=== PATIENT | female | born 1970 | race Caucasian/White ===

== ENCOUNTER 2016-04-14 18:56 | Inpatient (IN) | payer OTHER ==
[~2016-04-14] VITALS: Ht 160 cm; Wt 78.3 kg
[~2016-04-14 18:56] MED LIST: ATOR40TA PO; COLC1TAB13 PO; COZA1TAB PO; FERR325T3 PO; GABA-279 PO; GLUC4CHW PO; HYDR-4266 PO; IBUP-1114 PO; INSUDET SC; ISOS30TA4 PO; KLOR1TAB69 PO; LANTINJ4 SC; LASI40TA PO; LEVO100T5 PO; LISI-542 PO; MAGN400C2 PO; MAGN400T2 PO; METO-207 PO; OXYC1TAB23 PO; PANT40TA2 PO; PERCOCET PO; POTA10CA PO; SYMB16INH INH; SYMB80INH INH; SYNT50TA PO; TRAM50TA2 PO; TYLE325T5 PO; TYLE650T25 PO; VALS1TAB48 PO; VERA120C PO; VERA180C PO; VITA50003 PO; no home meds
[2016-04-14] MEDS ORDERED: RENV2TAB PO (20:12)
[2016-04-14] MEDS ORDERED: GABA600T PO (20:12)
[2016-04-14] MEDS ORDERED: ASPI1TAB PO (20:12)
[2016-04-14] MEDS ORDERED: HYDR-4266 PO (20:12)
[2016-04-14] MEDS ORDERED: LISI-542 PO (20:12)
[2016-04-14] MEDS ORDERED: METO-346 PO (20:12)
--- NOTE | 2016-04-14 22:46 | HPEPDOC ---
General Date of Admission 04/14/2016 Chief Complaint The patient is a 46-year-old female admitted with a reason for visit of EDEMA. Source: Patient, Old records Exam Limitations: No limitations History of Present Illness This is a 45-year-old female with uncontrolled diabetes with complications, end- stage renal disease on hemodialysis, hypertension, anemia, history of congestive heart failure, cancer questionable, peripheral neuropathy, peripheral vascular disease, diabetic retinopathy, is here because She missed dialysis for about 2 weeks. Patient went to [place] for about a month, was receiving hemodialysis regularly THERE. However SHE returns to [facility] about 2 weeks ago. She was getting dialysis here however since she has lost to follow-up, they cannot take her back. ER has called the check totaler and the dialysis center and being admitted since dialysis has to be set up as outpatient.. Denies any shortness of breath, chest pain or any symptoms. Home Medications Scheduled Aspirin (Aspirin 81) 81 Mg Tab 81 MG PO DAILY (Reported) Atorvastatin Calcium (Atorvastatin Calcium) 40 Mg Tab 40 MG PO DAILY (Reported ) Budesonide/Formoterol (Symbicort 160-4.5 Mcg/Act) 60 Puff/Inhaler Aers 1 PUFF INH BID (Reported) Ergocalciferol (Vitamin D) 50,000 Unit Cap 50,000 UNIT PO QWEEK (Reported) SUNDAYS Ferrous Sulfate (Ferrous Sulfate) 325 Mg Tab 325 MG PO DAILY (Reported) Gabapentin (Gabapentin) 600 Mg Tab 600 MG PO TID (Reported) Hydralazine HCl (Hydralazine HCl) 25 Mg Tab 25 MG PO BID (Reported) Isosorbide Mononitrate (Isosorbide Mononitrate ER) 30 Mg Tab 30 MG PO DAILY ( Reported) Levothyroxine Sodium (Synthroid) 100 Mcg Tab 100 MCG PO DAILY (Reported) Lisinopril (Lisinopril) 5 Mg Tab 5 MG PO DAILY (Reported) Magnesium Oxide (Magnesium Oxide) 400 Mg Tab 400 MG PO BID (Reported) Metoprolol Tartrate (Metoprolol Tartrate) 12.5 Mg Halftab 12.5 MG PO BID ( Reported) Sevelamer Carbonate (Renvela) 800 Mg Tab 800 MG PO TID (Reported) Allergies Coded Allergies: Penicillins (Unverified Allergy, Unknown, Childhood Allergy, 05/26/15) Past Medical History Medical History End-stage renal disease on hemodialysis Congestive heart failure hypertension Diabetes with complications Diabetic retinopathy Peripheral vascular disease Family History Significant Family History: No pertinent family hx Social History * Smoker: non-smoker, former Smoker Alcohol: denies Drugs: denies Recent Travel/Sick Contacts: Denies: Recent sick contacts, Recent travel Psychosocial History: No pertinent psych hx Review of Symptoms Constitutional: Denies: Chills, Fatigue, Fever, Lethargy, Malaise, Night Sweats , Other, Weakness, Weight Loss Eyes: Denies: Conjunctivae inflammation, Eyelid inflammation, Other, Pain, Redness, Vision change ENT: Denies: Dysphagia, Ear Pain, Epistaxis, Head Aches, Other Symptoms, Post Nasal Drip, Sinus Congestion, Sore Throat Skin: Denies: Breakdown, Bruising, Dry, Itching, Jaundice, Lesions, Nail Changes, Other, Rash Pulmonary: Denies: Cough, Dyspnea, Other Symptoms, Pleuritic Chest Pain Cardiovascular: Denies: Chest Pain, Edema, Lt Headedness, Orthopnea, Other Symptoms, Palpitations, Paroxysmal Noc. Dyspnea Gastrointestinal: Denies: Abdominal Pain, Constipation, Diarrhea, Hematochezia , Melena, Nausea, Other Symptoms, Vomiting Genitourinary: Denies: Dysuria, Frequency, Hematuria, Incontinence, Other Symptoms, Retention Hematologic: Denies: Bleeding Excessively, Bruising, Enlarged Lymph Nodes, Other Hematologic, Petecchia, Purpura Endocrine: Denies: Cold Intolerance, Heat Intolerance, Other Endocrine Sx, Polydipsia, Polyphagia, Polyuria Musculoskeletal: Denies: Arm Pain, Back Pain, Foot Pain, Hand Pain, Joint Pain , Leg Pain, Muscle Pain, Neck Pain, Other Symptoms, Shoulder Pain, Spasms Neurological: Denies: Change in speech, Confusion, Incoordination, Numbness, Other Symptoms, Seizures, Weakness Psych: Denies: Anger, Anxiety, Depression, Memory Issues, Mood Normal, Other Psych, Thoughts of Harming Other, Thoughts of Self Harm Physical Examination Eye Exam: Negative: Conjunctiva & lids normal, EOMI, Other Eye Symptoms, PERRLA , Ptosis, Sclera icteric ENT Exam: Negative: Atraumatic, Ext Auditory Canal Nml, Mucous membr. moist/ pink, Nares Patent, Other ENT, Pharyngeal Edema, Pharynx Normal, Pinna Normal, Tongue Midline, Tympanic Membranes Normal Neck Exam: Negative: +2 carotid pulse wo bruit, JVD, Lymphadenopathy, Other, Supple, thyromegaly Chest Exam: Positive: Clear to auscultation, Normal air movement, Negative: Diminished, Other, Rales, Rhonchi, Wheezing Heart Exam: Positive: Murmurs, Normal S1, Normal S2, Rate Normal, Negative: Bradycardic, Gallops, Irregular Rhythm, Other, Regular Rhythm, Rubs , Tachycardic Telemetry: Negative: AV Block, Asystole, Atrial fibrillation, Bradycardia, No significant arrhythmia, Other Telemetry:, PACs, PVCs, Pause, SV Tach, Sinus, Tachycardia Abdomen Exam: Positive: Normal bowel sounds, Negative: BS Hyperactive, BS Hypoactive, Hepatospenomegaly, Hernia, Mass, Other, Soft, Tenderness Extremity Exam: Negative: Clubbing, Cyanosis, Edema, Normal pulses, Other, Swelling, Tenderness Vital Signs BP: 176/96 P: 88 TEMP: 96.4 Plan / VTE VTE Prophylaxis Ordered?: Yes Plan Plan 45-year-old female with uncontrolled diabetes with complications, end-stage renal disease on hemodialysis, hypertension, anemia, history of congestive heart failure, cancer questionable, peripheral neuropathy, peripheral vascular disease, diabetic retinopathy, is here because She missed dialysis for about 2 weeks. ESRD on HD: - call psychiatric social worker shane to set up HD as outpatient. - no need for acute HD at this time. - c/w renvela. Anemia: - could be secondary to ACD vs. ESRD. - ferritin is elevated therefore we will stop iron supplementation. HTN: - BP is uncontrolled possible secondary to missed HD. for now will increase hydralazine to 25mg TID from BID - c/w, Imdur 30mg daily, metoprolol 12.5mg BID, lisinopril 5mg daily, DVT ppx: heparin sub q. DIANA ALBARADO MD Apr 14, 2016 22:46
[2016-04-14] MEDS ORDERED: GLUCAGON FOR INJ 1 MG VIAL (J1610) SC PRN (23:00)
[2016-04-14] MEDS ORDERED: GLUCOSE 4 GM CHEW TABLET PO PRN (23:00)
[2016-04-14] MEDS ORDERED: DEXTROSE 50% 50 ML SYRINGE IV PRN (23:00)
--- NOTE | 2016-04-15 00:36 | EDDOCDS ---
Physician Documentation [facility] Name: Subha Trivedi Age: 46 yrs Sex: Female : 1970 Arrival Date: 04/14/2016 Time: 18:56 Bed 12 Private MD: Gibran Castillo Disposition: 04/14/16 19:21 Hospitalization ordered by Gibran Castillo for Inpatient Admission. Preliminary diagnosis is End stage renal disease. - Bed requested for PCU. - Status is Inpatient Admission. af2 - Condition is Stable. - Problem is an ongoing problem. - Symptoms are unchanged. Historical: - Allergies: PENICILLINS; - Home Meds: 1. aspirin 81 mg Oral TbEC 1 tab once daily 2. atorvastatin 40 mg oral tab 1 tab once daily 3. ferrous sulfate 325 mg (65 mg iron) Oral cpER daily 4. gabapentin 600 mg Oral tab 1 tab 3 times per day 5. hydralazine 25 mg Oral tab 1 tab 2 times per day 6. isosorbide mononitrate 30 mg Oral Tb24 1 tab once daily 7. levothyroxine 100 mcg Oral cap once daily 8. lisinopril 5 mg Oral tab 1 tab once daily 9. MagOx 400 mg oral tab twice a day 10. metoprolol tartrate 12.5 mg Oral tab 1 tab 2 times per day 11. Renvela 800 mg oral tab 1 tab 3 times per day 12. Symbicort INH 2 puff daily 13. Vitamin D Oral 51481 unit weekly - PMHx: Anemia; CHF; Chronic Renal Disease; Diabetes; HTN; Left ovarian tumor, cancer, inoperable; peripheral neuropathy; PVD; Renal Failure with Dialysis; - PSHx: ; Tubal ligation; Dialysis Catherter Insertion; Angioplasty; Hysterectomy; - Social history: Smoking status: Patient uses tobacco products, light tobacco smoker. No barriers to communication noted, The patient speaks fluent Ukrainian, Speaks appropriately for age. - Family history: Not pertinent. - : The pt / caregiver states he / she is not on anticoagulants. Home medication list is obtained from the patient. - Exposure Risk Screening:: None identified. 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 3 in. (160.02 cm) (R); Pain 0/10; 23:01 BP 181 / 91; Pulse 84; Resp 16; Temp 98.7(T); Pulse Ox 98% on R/A; Pain 0/10; jf3 04/15 00:12 BP 172 / 81; Pulse 82; Resp 18 S; Temp 98.7(O); Pulse Ox 95% on R/A; af2 04/14 19:00 Body Mass Index 26.57 (68.04 kg, 160.02 cm) mt4 MDM: 04/14 19:51 Financial registration complete. gjb 19:52 [facility] Payment Agreement was scanned into [employer] and attached to record. gjb 22:36 Admission / Observation Status ordered. EDMS 22:36 2 GRAM SODIUM DIET ordered. EDMS 22:36 LOW FAT LOW CHOLESTEROL DIET ordered. EDMS 22:37 BASIC METABOLIC PROFILE Ordered. EDMS 23:10 Admission / Observation Status ordered. EDMS Signatures: Dispatcher [employer] EDMS Leyda Israel RN RN Hasmukh Stern, Nilsa SoloRN RN Caroline AvinaRN RN shakir2 Telma Jacobs The chart was reviewed and I authenticate all verbal orders and agree with the evaluation and treatment provided.Attachments: 19:52 [facility] Payment Agreement gj MTDD
--- NOTE | 2016-04-15 00:36 | EDDOCDS ---
Nurse's Notes [facility] Name: Subha Trivedi Age: 46 yrs Sex: Female : 1970 Arrival Date: 04/14/2016 Time: 18:56 Bed 12 Private MD: Gibran Castillo Diagnosis: End stage renal disease Presentation: 04/14 19:06 Presenting complaint: Patient states: Was called by dr Acevedo's office and told to jo3 return to the ED for admission. Adult Sepsis Screening: The patient does not have new or worsening altered mentation. Patient's respiratory rate is less than 22. Systolic blood pressure is greater than 100. Patient has a qSOFA score of 0- Negative Sepsis Screen. Suicide/Homicide risk assessment- the patient denies having any suicidal and/or homicidal ideations and does not present with any other emotional, behavioral or mental health complaints. Status: Patient is not a engine repairer service or dependent. Transition of care: patient was not received from another setting of care. 19:06 Acuity: ESAU Level 3 jo3 19:06 Method Of Arrival: Walkin/Carried/Asstd jo3 Triage Assessment: 19:09 General: Appears in no apparent distress, Behavior is appropriate for age, cooperative. jo3 Pain: Denies pain. HIV screening NA for this visit Offered previously. Neurological: Level of Consciousness is awake, alert, Oriented to person, place, time. Respiratory: Airway is patent Respiratory effort is even, unlabored. Derm: Skin is pink, warm & dry. 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 aspirin 81 mg Oral TbEC 1 tab once daily 2. atorvastatin 40 mg oral tab 1 tab once daily 3. ferrous sulfate 325 mg (65 mg iron) Oral cpER daily 4. gabapentin 600 mg Oral tab 1 tab 3 times per day 5. hydralazine 25 mg Oral tab 1 tab 2 times per day 6. isosorbide mononitrate 30 mg Oral Tb24 1 tab once daily 7. levothyroxine 100 mcg Oral cap once daily 8. lisinopril 5 mg Oral tab 1 tab once daily 9. MagOx 400 mg oral tab twice a day 10. metoprolol tartrate 12.5 mg Oral tab 1 tab 2 times per day 11. Renvela 800 mg oral tab 1 tab 3 times per day 12. Symbicort INH 2 puff daily 13. Vitamin D Oral 14261 unit weekly - PMHx: Anemia; CHF; Chronic Renal Disease; Diabetes; HTN; Left ovarian tumor, cancer, inoperable; peripheral neuropathy; PVD; Renal Failure with Dialysis; - PSHx: ; Tubal ligation; Dialysis Catherter Insertion; Angioplasty; Hysterectomy; - Social history: Smoking status: Patient uses tobacco products, light tobacco smoker. No barriers to communication noted, The patient speaks fluent Maori, Speaks appropriately for age. - Family history: Not pertinent. - : The pt / caregiver states he / she is not on anticoagulants. Home medication list is obtained from the patient. - Exposure Risk Screening:: None identified. Screenin:20 Screening information is obtained from the patient. Fall risk: No risks identified. af2 Assistance ADL's: requires no assistance with activities of daily living. Abuse/DV Screen: The patient / caregiver reports he/she is: not in a situation that causes fear, pain or injury. Nutritional screening: No deficits noted. Advance Directives: Currently, there is no health care proxy. home support is adequate. Assessment: 19:21 General: Appears in no apparent distress, Behavior is cooperative, pt states that she af2 was seen in ED earlier today, released home. pt reports she received a call from Dr. Acevedo's office stating that she needs to return to hospital for admission as they will not do dialysis for her on Sunday.. Neurological: Level of Consciousness is awake, alert, obeys commands, Oriented to person, place, time. Cardiovascular: Heart tones S1 S2 present. GI: Reports diarrhea, nausea. Derm: Skin is normal. 23:01 General: Appears in no apparent distress, comfortable, Behavior is cooperative. Pain: jf3 Denies pain. Neurological: Level of Consciousness is awake, alert, Oriented to person, place, time. Cardiovascular: Capillary refill < 3 seconds. Cardiovascular: Chest pain is denied. Respiratory: Airway is patent Respiratory effort is even, unlabored, Respiratory pattern is regular, symmetrical, Denies shortness of breath at rest. Derm: Skin is normal. 23:17 General: piv initiated at this time, pt updated regarding plan of care. . af2 04/15 00:06 General: Appears in no apparent distress, comfortable, Behavior is appropriate for age, af2 cooperative, pt offers no complaints at this time. rr even and unlabored. skin w/d/i. . Respiratory: Airway is patent Respiratory effort is even, unlabored. GI: Reports diarrhea. Derm: Skin is normal. Vital Signs: 04/14 19:00 BP 183 / 77 RA Sitting (auto/reg); Pulse 89 RA; Resp 18 S; Temp 97.7(T); Pulse Ox 100% mt4 on R/A; Weight 68.04 kg (R); Height 5 ft. 3 in. (160.02 cm) (R); Pain 0/10; 23:01 BP 181 / 91; Pulse 84; Resp 16; Temp 98.7(T); Pulse Ox 98% on R/A; Pain 0/10; jf3 04/15 00:12 BP 172 / 81; Pulse 82; Resp 18 S; Temp 98.7(O); Pulse Ox 95% on R/A; af2 04/14 19:00 Body Mass Index 26.57 (68.04 kg, 160.02 cm) mt4 Vitals: 04/14 19:00 Log In Time: April 14, 2016 at 18:56. mt4 ED Course: 19:00 Patient visited by Isabel Stephens. mt4 19:00 Gibran Castillo is Private Physician. mt4 19:00 Patient moved to Waiting mt4 19:01 Patient moved to Pre RCE mt4 19:08 Triage Initiated jo3 19:10 Patient visited by Nilsa Gramajo RN. jo3 19:10 Caroline High,RN is Primary Nurse. jo3 19:10 Patient moved to 12 jo3 19:11 Patient visited by Nilsa Gramajo RN. jo3 19:11 [facility]. ke 19:12 Patient visited by Hasmukh Farrar FNP. ke 19:12 Patient visited by Hasmukh Farrar FNP. ke 19:21 Gibran Castillo is Hospitalizing Provider. ke 19:21 The patient / caregiver is instructed regarding the plan of care and ED course. Patient af2 has correct armband on for positive identification. 19:23 Patient visited by Caroline High RN. af2 19:52 [facility] [place] was scanned into [employer] and attached to record. gregor 23:01 No IV's were initiated during this patient's visit. No procedures done that require james3 assistance. 23:17 Patient visited by Caroline High RN. af2 23:17 Inserted saline lock: 20 gauge in right antecubital area The patient tolerated the af2 procedure well. 23:18 Patient visited by Caroline High RN. af2 04/15 00:07 Patient visited by Caroline High RN. af2 Order Results: There are currently no results for this order. Outcome: 04/14 19:21 Decision to Hospitalize by Provider. ke 04/15 00:06 Discharge Assessment: Patient awake, alert and oriented x 3. No cognitive and/or af2 functional deficits noted. Patient verbalized understanding of disposition instructions. patient administered narcotics - no. The following High Risk Discharge criteria are identified: None. Admitted to PCU accompanied by nurse, accompanied by tech, via stretcher, on monitor, with chart. Condition: stable. No special radiology studies were completed. Property :Personal belongings accompany Pt. 00:35 Patient left the ED. af2 Signatures: Hasmukh Farrar, MANAGEMENT EXPERT Nilsa FioreRN RN Isabel Gastelum fl4 Caroline HighRN RN shakir2 David Givens RN RN Telma Hester MTDD
[2016-04-15 00:43] VITALS: BP 197/96
[2016-04-15] MEDS: GABAPENTIN 300 MG CAP PO SCH ×4 (00:50→20:18)
[2016-04-15] MEDS: (RENVELA) SEVELAMER **CARBONate** 800 MG TAB PO SCH ×4 (00:50→20:17)
[2016-04-15] MEDS: MAGNESIUM OXIDE 400 MG TAB (MAG-OX) PO SCH ×3 (00:51→20:18)
[2016-04-15] MEDS: METOPROLOL TART 12.5 MG PER 1/2 TAB PO SCH ×3 (00:52→20:18)
[2016-04-15] MEDS: **hydrALAZINE HCL** 25 MG TAB PO SCH ×4 (00:52→20:18)
[2016-04-15] MEDS ORDERED: DEXTROSE 50% 50 ML SYRINGE IV PRN (02:00)
[2016-04-15] MEDS ORDERED: GLUCAGON FOR INJ 1 MG VIAL (J1610) SC PRN (02:00)
[2016-04-15] MEDS ORDERED: GLUCOSE 4 GM CHEW TABLET PO PRN (02:00)
[2016-04-15 04:00] VITALS: BP 162/77
[2016-04-15 05:32] LABS: CALCIUM LEVEL 8.2 MG/DL (8.5-10.1); CREATININE FOR GFR 5.76 MG/DL (0.55-1.02); GLOMERULAR FILTRATION RATE 8.5 (>58); POTASSIUM SERUM 4.1 MEQ/L (3.5-5.1)
[2016-04-15] MEDS: LEVOTHYROXINE 0.1 MG TAB (100 MCG) PO SCH (05:37)
[2016-04-15 07:02] LABS: MEAN CORPUSCULAR HEMOGLOBIN 28.5 pg (27.0-33.0); MEAN CORPUSCULAR HGB CONC 30.6 g/dl (32.0-36.5); MEAN CORPUSCULAR VOLUME 93.1 fl (80.0-96.0); RED CELL DISTRIBUTION WIDTH 16.1 % (11.5-14.5); WHITE BLOOD COUNT 4.4 K/mm3 (4.0-10.0)
[2016-04-15] MEDS: SYMBICORT 160/4.5MCG INHALER 6GM INH SCH ×2 (07:07→21:14)
[2016-04-15] MEDS ORDERED: HumaLOG INSULIN (NovoLOG) PER UNIT SC SCH ×2 (07:30→21:00)
[2016-04-15 08:00] VITALS: BP 159/80
[2016-04-15] MEDS: HEPARIN SOD (PORCINE) 5000 UNITS/ML VIAL SC SCH ×2 (08:40→20:19)
[2016-04-15] MEDS: HumaLOG INSULIN (NovoLOG) PER UNIT SC SCH ×3 (08:41→16:53)
[2016-04-15] MEDS: ASPIRIN 81 MG ENTERIC TAB PO SCH (08:42)
[2016-04-15] MEDS: LISINOPRIL 5 MG TAB PO SCH (08:42)
[2016-04-15] MEDS: ISOSORBIDE MON. (IMDUR) 30 MG XR TAB PO SCH (08:42)
[2016-04-15] MEDS: ATORVASTATIN 20 MG TAB PO SCH (08:43)
[2016-04-15] MEDS ORDERED: FERROUS SULFATE 325MG TAB PO SCH (09:00)
[2016-04-15] MEDS ORDERED: **hydrALAZINE HCL** 25 MG TAB PO SCH (09:00)
[2016-04-15 09:09] LABS: MAGNESIUM LEVEL 1.6 MG/DL (1.8-2.4); PERCENT SATURATION 32.1 % (13.2-37.4)
[2016-04-15] MEDS ORDERED: HEPARIN 1,000 UNITS/ML 10ML VIAL (FOR RADIOLOGY& DIALYSIS ONLY) IV ONE (10:00)
[2016-04-15 13:30] VITALS: BP 177/84
--- NOTE | 2016-04-15 14:25 | IPN ---
DATE: 04/15/2016 SUBJECTIVE: The patient reports she is feeling well. She has no complaints. She denies shortness of breath, fever, chills, lightheadedness, dizziness, nausea or vomiting. OBJECTIVE: VITAL SIGNS: Temperature 97.5, pulse 74, respiratory rate 18, blood pressure 159/80, oxygen saturation 95% on room air. GENERAL: She is a pleasant, middle-aged female laying flat in bed. She is in no distress. HEENT: Cranial nerves II-XII are grossly intact. She has moist mucous membranes. No significant elevation of central venous pressure. CARDIOVASCULAR EXAM: S1, S2, regular. RESPIRATORY EXAM: Clear. No rales. ABDOMINAL EXAM: Benign. EXTREMITIES: She has 2+ edema bilaterally. LABORATORY STUDIES: WBC 4.4, hemoglobin 9.8, hematocrit 32.1, platelet count 200. Chemistry panel: Sodium 145, potassium 4.1, chloride 110, bicarbonate 24, BUN 40, creatinine 5.7, magnesium 1.6. No new imaging. ASSESSMENT AND PLAN: This is a 46-year-old female with end-stage renal disease and fluid overload, presenting due to inability to obtain hemodialysis. Problems: 1. Fluid overload secondary to inability to obtain hemodialysis. The [place] the [place]; [place], her attempt failed, and she returned but she had lost her outpatient dialysis seat. As the patient had not had dialysis for 2 weeks, the dialysis center refused to dialyze her and as such, the patient was instructed to come to the hospital emergently. The patient does not appear to have an acute emergent indication for hemodialysis. She is somewhat fluid overloaded. I will contact Dr. Mcdaniel of Nephrology. Will see if the patient can proceed with dialysis temporarily while in the hospital while we attempt to coordinate an outpatient hemodialysis seat. She is continued on her Renvela. 2. Hypertension. Possibly worsened from her lack of hemodialysis. She is on hydralazine 25 mg three times a day and metoprolol 12.5 mg daily, Imdur 30 mg daily and lisinopril 5 mg daily. 3. Dyslipidemia. The patient is on Lipitor 40 mg. 4. Hypothyroidism. The patient is on levothyroxine. 5. Neuropathy. The patient is on Neurontin. 6. Deep vein thrombosis (DVT) prophylaxis. The patient is on heparin. 7. Congestive heart failure. As outlined above, the patient's fluid status was optimized via hemodialysis. DISPOSITION: The patient is admitted to the progressive care unit, and we will work on obtaining an appropriate outpatient hemodialysis seat for this patient, and I will consult nephrology to help with inpatient dialysis while the patient is here.
[2016-04-15 16:00] VITALS: BP 170/80
[2016-04-15] MEDS ORDERED: SLF 3 ML SYR IV PRN (18:00)
[2016-04-15] MEDS ORDERED: DARBEPOETIN 100 MCG/0.5 ML *NON-DIALYSIS* SYRINGE (J0881) SQ ONE (19:00)
[2016-04-15 19:55] VITALS: BP_SYST 148; BP_SYST 185; BP_DIAS 61; BP_DIAS 87
[2016-04-15] MEDS: SLF 3 ML SYR IV SCH (20:18)
[2016-04-16] MEDS ORDERED: LOPERAMIDE 2 MG CAP PO ONE (00:45)
[2016-04-16 04:00] VITALS: BP 168/78
--- NOTE | 2016-04-16 05:34 | CR ---
DATE OF CONSULTATION: 04/15/2016 CONSULTATION REPORT FOR: Dr. Denisha Islas REASON FOR CONSULTATION: Management of end-stage renal disease on hemodialysis patient who has not received dialysis in two weeks. CHIEF COMPLAINT: Patient presented to the emergency room yesterday after having missed dialysis and with elevated blood pressures. HISTORY OF PRESENT ILLNESS: Subha Trivedi is a 46-year-old female with past medical history of insulin-dependent diabetes with diabetic nephropathy, end-stage renal disease requiring hemodialysis, diabetic retinopathy with left eye blindness, hypertension, history of congestive heart failure, and multiple other comorbidities who was our dialysis patient until November 2015, when she moved to [place] and she was there for about four months. Her last hemodialysis was on 03/30/2016. She moved back from [place], but her dialysis has not been set up as an outpatient. Outpatient dialysis center refused to dialyze her because she had not received dialysis for more than two weeks and she was hypertensive. So, patient presented to the emergency room yesterday after having missed dialysis and with hypertensive urgency. Patient was admitted under hospitalist service overnight and nephrology service was called for the management of end-stage renal disease. I saw the patient today in the dialysis center. I had already arranged her dialysis. She is getting dialyzed at this time. PAST MEDICAL HISTORY: Patient has history of insulin-dependent diabetes for many years, hypertension, congestive heart failure, diabetic retinopathy with left eye blindness, peripheral neuropathy, anemia of end-stage renal disease. PAST SURGICAL HISTORY: 1. Status post left upper arm atrioventricular (AV) fistula creation, which caused steal syndrome and that had to be ligated. 2. Status post right thigh AV graft formation. 3. Status post hysterectomy. ALLERGIES: Patient is allergic to PENICILLIN, causes rash and hives. CURRENT MEDICATIONS: - aspirin 81 mg by mouth daily - atorvastatin 40 mg by mouth daily - gabapentin 600 mg by mouth three times a day - heparin subcutaneous - hydralazine 25 mg by mouth three times a day - insulin sliding-scale - isosorbide 30 mg by mouth daily - levothyroxine 0.1 mg by mouth daily - lisinopril 5 mg by mouth daily - magnesium oxide 400 mg by mouth twice a day - metoprolol tartrate 12.5 mg by mouth twice a day - Renvela 800 mg by mouth three times a day FAMILY HISTORY: There is no significant family history of end-stage renal disease requiring hemodialysis. No history of cancer in the family. SOCIAL HISTORY: Patient recently moved back from [place]. She currently lives in [place]. She denies any smoking, drug abuse, or alcohol abuse. She has been living with her father and her daughter lives with her as well. REVIEW OF SYSTEMS: CONSTITUTIONAL: She denies any fever, chills, fatigue, or lethargy. EYES: She has history of left eye blindness, and right eye vision is also decreased. ENT: She denies any dysphagia, odynophagia, nasal discharge, or ear discharge. SKIN: She denies any rashes or ulcers. PULMONARY: She denies any cough or shortness of breath. CARDIOVASCULAR: She denies any chest pain or palpitations. GASTROINTESTINAL: She denies any abdominal pain, constipation, or diarrhea. GENITOURINARY: She has history of end-stage renal disease requiring dialysis, and she makes very little urine. HEMATOLOGICAL: She gives history of anemia secondary to end-stage renal disease. ENDOCRINE: Patient is an insulin dependent diabetic for many years, and she has history of hypothyroidism as well. MUSCULOSKELETAL: She denies any muscle aches and pains. NEUROLOGICAL: She has history of peripheral neuropathy. She does report numbness of the bilateral lower extremities and upper extremities secondary to neuropathy. PSYCH: She denies any history of anxiety or depression. All other review of systems are negative. PHYSICAL EXAMINATION: VITAL SIGNS: Temperature is 97 degrees Fahrenheit, blood pressure is 170/80, pulse is 73, respiratory rate 18, saturating 97% on room air. Intake and output: Total urine output recorded is only 300 mL. Weight in the bed scale is 77.3 kg. As reported in the transfer documents, patient's dry weight is 62 kg. GENERAL: Patient is awake, alert, and oriented times three, lying in the bed getting hemodialysis done in no apparent distress at this time. HEAD AND NECK EXAM: Extraocular muscles are intact. Pupils equally round and reactive to light. Decreased vision in the right eye, and patient is blind in the left eye. Mucous membranes are moist. Neck is supple. distention (JVD). CARDIOVASCULAR: S1, S2 regular rate. No murmur, rub, or gallop. RESPIRATORY: Chest is clear to auscultation bilaterally. Bilaterally equal air entry. No rales or rhonchi. ABDOMEN: Soft. Positive bowel sounds. Nontender. No ascites. No organomegaly. EXTREMITIES: Patient has 2+ pitting edema of the bilateral lower extremities. There is no clubbing or cyanosis. Patient has an AV graft in the right thigh which is being used for dialysis at this time. CENTRAL NERVOUS SYSTEM: No focal neurological deficit. Power is 5/5 in all extremities. PSYCH: Normal mood and affect. SKIN: No rashes or ulcers. LYMPH NODES: No significant cervical, axillary, or inguinal lymph nodes. LAB REVIEW: CBC showed a WBC of 4.4, hemoglobin 9.8, platelets are 200. BMP shows sodium of 145, potassium 4.1, chloride 110, bicarbonate 24, BUN 40, creatinine 5.7, calcium 8.2, magnesium 1.6, iron 59, TIBC 184, transferrin saturation 32%, ferritin was 268. PTH is pending. ASSESSMENT: 46-year-old female with history of end-stage renal disease on hemodialysis, hypertension, insulin-dependent diabetes, admitted this time with missed hemodialysis for two weeks, hypertensive urgency, and fluid overload. 1. End-stage renal disease. Patient is being dialyzed today. I shall dialyze the patient for three hours today and we will try to remove at least three liters of fluid. I already sent her documents to the hemodialysis center at [place] and they already have a place for her this coming Sunday. Patient should hopefully be able to get discharged tomorrow if her blood pressure is okay, and she should be able to get her hemodialysis as an outpatient. 2. Anemia and end-stage renal disease. Patient's iron levels are okay. I will give her a dose of Aranesp 100 mg subcutaneous times one dose today. 3. Hypertension. Hypertension is secondary to noncompliance with hemodynamically and fluid overload. Continue current dose of antihypertensive medications including hydralazine 25 mg by mouth three times a day, isosorbide 30 mg by mouth daily, lisinopril 5 mg by mouth daily, and metoprolol 12.5 mg by mouth twice a day. I would not escalate the antihypertensive medications at this time. I will be removing fluid with hemodialysis as well. Hopefully with removing fluid and hemodialysis, it will bring her dry weight back to 62 kg and her blood pressure will improve. 4. Chronic kidney disease and mineral bone disease. Continue current dose of Renvela with meals. Phosphorus level is acceptable at this time. 5. Secondary hyperparathyroidism secondary to end-stage renal disease. I have ordered at PTH level, and the rest of the management will be as per outpatient hemodialysis protocol. 6. Insulin-dependent diabetes mellitus. Patient is currently on insulin Lispro and Levemir. The rest of the management is as per primary team. 7. Hypothyroidism. Continue current dose of levothyroxine. 8. Discharge planning. If patient's blood pressure remains stable, and she remains asymptomatic, patient will likely get discharged by tomorrow and she will get hemodialysis on Sunday as an outpatient. Plan of care was discussed with the hospitalist team, Dr. Denisha Islas. cc: [facility]las [facility]
[2016-04-16] MEDS: SLF 3 ML SYR IV SCH (05:56)
[2016-04-16] MEDS: LEVOTHYROXINE 0.1 MG TAB (100 MCG) PO SCH (05:56)
[2016-04-16 06:14] LABS: CREATININE FOR GFR 4.08 MG/DL (0.55-1.02); GLOMERULAR FILTRATION RATE 12.6 (>58); POTASSIUM SERUM 3.9 MEQ/L (3.5-5.1)
[2016-04-16 06:17] LABS: MEAN CORPUSCULAR HEMOGLOBIN 28.3 pg (27.0-33.0); MEAN CORPUSCULAR HGB CONC 30.3 g/dl (32.0-36.5); MEAN CORPUSCULAR VOLUME 93.2 fl (80.0-96.0); RED CELL DISTRIBUTION WIDTH 16.4 % (11.5-14.5); WHITE BLOOD COUNT 5.2 K/mm3 (4.0-10.0)
[2016-04-16 08:00] VITALS: BP 158/76
[2016-04-16] MEDS: SYMBICORT 160/4.5MCG INHALER 6GM INH SCH (08:25)
[2016-04-16] MEDS: HumaLOG INSULIN (NovoLOG) PER UNIT SC SCH (08:49)
[2016-04-16] MEDS: METOPROLOL TART 12.5 MG PER 1/2 TAB PO SCH (08:49)
[2016-04-16] MEDS: ASPIRIN 81 MG ENTERIC TAB PO SCH (08:49)
[2016-04-16] MEDS: LISINOPRIL 5 MG TAB PO SCH (08:50)
[2016-04-16] MEDS: ISOSORBIDE MON. (IMDUR) 30 MG XR TAB PO SCH (08:50)
[2016-04-16] MEDS: **hydrALAZINE HCL** 25 MG TAB PO SCH (08:50)
[2016-04-16] MEDS: GABAPENTIN 300 MG CAP PO SCH (08:50)
[2016-04-16] MEDS: (RENVELA) SEVELAMER **CARBONate** 800 MG TAB PO SCH (08:50)
[2016-04-16] MEDS: ATORVASTATIN 20 MG TAB PO SCH (08:51)
[2016-04-16] MEDS: MAGNESIUM OXIDE 400 MG TAB (MAG-OX) PO SCH (08:51)
[2016-04-16] MEDS: HEPARIN SOD (PORCINE) 5000 UNITS/ML VIAL SC SCH (08:51)
[2016-04-16] MEDS ORDERED: ATOR40TA PO (09:25)
[2016-04-16] MEDS ORDERED: METO-346 PO (09:25)
[2016-04-16] MEDS ORDERED: FERR325T3 PO (09:25)
[2016-04-16] MEDS ORDERED: LEVO100T5 PO (09:25)
[2016-04-16] MEDS ORDERED: RENV2TAB PO (09:25)
[2016-04-16] MEDS ORDERED: GABA600T PO (09:25)
[2016-04-16] MEDS ORDERED: ISOS30TA4 PO (09:25)
[2016-04-16] MEDS ORDERED: SYMB16INH INH (09:25)
[2016-04-16] MEDS ORDERED: ASPI1TAB PO (09:25)
[2016-04-16] MEDS ORDERED: LISI-542 PO (09:25)
[2016-04-16] MEDS ORDERED: HYDR-4266 PO (09:25)
[2016-04-16] MEDS ORDERED: VITA50003 PO (09:25)
[2016-04-16] MEDS ORDERED: MAGN400T2 PO (09:25)
[2016-04-16] MEDS ORDERED: LISINOPRIL 5 MG TAB PO ONE (09:45)
[2016-04-16 10:29] VITALS: BP 168/78
--- NOTE | 2016-04-16 18:34 | IPN ---
DATE: 04/16/2016 SUBJECTIVE: The patient was seen and examined at the bedside today. She does not have any active complaints. She got hemodialysis done yesterday. Three liters of ultrafiltration was done. She tolerated the hemodialysis procedure well. REVIEW OF SYSTEMS: The patient denies any fevers, chills, rigors, headaches, nausea, vomiting, chest pain, shortness of breath, pain abdomen, constipation, or diarrhea. OBJECTIVE: VITAL SIGNS: Temperature is 98.6 degrees Fahrenheit, blood pressure is 168/78, pulse is 72, respiratory rate of 18, saturating 92% on room air. INTAKE AND OUTPUT: Urine output recorded as 300 mL, 200 mL so far today since overnight. Ultrafiltration was three liters. Weight in the bed scale is 78.3 kg. PHYSICAL EXAMINATION: GENERAL: The patient is awake, alert, and oriented times three, lying in the bed in no apparent distress. HEAD/NECK: Extraocular muscles intact. Pupils equal, round, and reactive to light. Neck is supple. There is no jugular venous distention (JVD). CARDIOVASCULAR: S1, S2. Regular rate. No murmur, rub, or gallop. RESPIRATORY: Clear to auscultation bilaterally. Bilateral equal air entry. No rales or rhonchi. ABDOMEN: Soft, positive bowel sounds. Nontender. No ascites. No organomegaly. EXTREMITIES: The patient has 2+ pitting edema of the bilateral lower extremities. No clubbing or cyanosis. 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 Power is 5/5 in all extremities. ARTERIOVENOUS (AV) ACCESS: The patient has an AV graft in the right thigh with positive thrill and bruit. LABORATORY DATA: CBC showed a WBC 5.2, hemoglobin is 9, platelets are 197. BMP showed sodium 143, potassium 3.9, chloride 106, bicarbonate 29, BUN 25, creatinine 4.08, calcium is 8. CURRENT MEDICATIONS: The patient's current medications are all reviewed by me. ASSESSMENT: A 46-year-old female with history of end-stage renal disease on hemodialysis, hypertension, insulin-dependent diabetes , admitted this time with missed hemodialysis for two weeks and hypertensive urgency, along with fluid overload. PLAN: 1. End-stage renal disease. The patient was dialyzed yesterday. Three liters of ultrafiltration was done. She tolerated the procedure well. She already has placement as outpatient at [facility]. She will be dialyzed on Sunday. 2. Anemia in end-stage renal disease. The patient's iron levels are okay. She was given a dose of Aranesp 100 mcg subcutaneously. Rest of the anemia management as per outpatient protocol. 3. Renovascular hypertension. The patient's hypertension is secondary to noncompliance with hemodialysis and fluid overload. She got dialyzed yesterday. Three liters of ultrafiltration was done. However, she is significantly above her dry weight of 62 kg. We shall keep on challenging her dry weight during outpatient hemodialysis. Continue current dose of hydralazine, isosorbide, and metoprolol. However, I have increased her dose of lisinopril to 10 mg daily. I am not further going to escalate the antihypertensive medications because with consecutive hemodialysis and dry weight challenging, her blood pressure would come down. 4. Chronic kidney disease, mineral bone disease. Continue current dose of Renvela. Phosphorus level is acceptable. 5. Secondary hyperparathyroidism in end-stage renal disease. Her parathyroid hormone (PTH) level is still pending, but when the patient goes to [facility], we shall do all the mineral bone disease and PTH workup, and secondary hyperparathyroidism will be management according to outpatient protocol. 6. Discharge planning. It is okay to discharge the patient from nephrology standpoint. She already has placement at [facility] in [place], and she will be dialyzed there on Sunday. Plan of care was discussed with the hospitalist team, Dr. Denisha Islas. [facility]ITAL[facility]
--- NOTE | 2016-04-17 01:36 | EDDOCDS ---
Nurse's Notes [facility] Name: Subha Trivedi Age: 46 yrs Sex: Female : 1970 Arrival Date: 04/14/2016 Time: 18:56 Bed 12 Private MD: Gibran Castillo Diagnosis: End stage renal disease Presentation: 04/14 19:06 Presenting complaint: Patient states: Was called by dr Acevedo's office and told to jo3 return to the ED for admission. Adult Sepsis Screening: The patient does not have new or worsening altered mentation. Patient's respiratory rate is less than 22. Systolic blood pressure is greater than 100. Patient has a qSOFA score of 0- Negative Sepsis Screen. Suicide/Homicide risk assessment- the patient denies having any suicidal and/or homicidal ideations and does not present with any other emotional, behavioral or mental health complaints. Status: Patient is not a medical services assistant or dependent. Transition of care: patient was not received from another setting of care. 19:06 Acuity: ESAU Level 3 jo3 19:06 Method Of Arrival: Walkin/Carried/Asstd jo3 Triage Assessment: 19:09 General: Appears in no apparent distress, Behavior is appropriate for age, cooperative. jo3 Pain: Denies pain. HIV screening NA for this visit Offered previously. Neurological: Level of Consciousness is awake, alert, Oriented to person, place, time. Respiratory: Airway is patent Respiratory effort is even, unlabored. Derm: Skin is pink, warm & dry. 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 aspirin 81 mg Oral TbEC 1 tab once daily 2. atorvastatin 40 mg oral tab 1 tab once daily 3. ferrous sulfate 325 mg (65 mg iron) Oral cpER daily 4. gabapentin 600 mg Oral tab 1 tab 3 times per day 5. hydralazine 25 mg Oral tab 1 tab 2 times per day 6. isosorbide mononitrate 30 mg Oral Tb24 1 tab once daily 7. levothyroxine 100 mcg Oral cap once daily 8. lisinopril 5 mg Oral tab 1 tab once daily 9. MagOx 400 mg oral tab twice a day 10. metoprolol tartrate 12.5 mg Oral tab 1 tab 2 times per day 11. Renvela 800 mg oral tab 1 tab 3 times per day 12. Symbicort INH 2 puff daily 13. Vitamin D Oral 23710 unit weekly - PMHx: Anemia; CHF; Chronic Renal Disease; Diabetes; HTN; Left ovarian tumor, cancer, inoperable; peripheral neuropathy; PVD; Renal Failure with Dialysis; - PSHx: ; Tubal ligation; Dialysis Catherter Insertion; Angioplasty; Hysterectomy; - Social history: Smoking status: Patient uses tobacco products, light tobacco smoker. No barriers to communication noted, The patient speaks fluent Polish, Speaks appropriately for age. - Family history: Not pertinent. - : The pt / caregiver states he / she is not on anticoagulants. Home medication list is obtained from the patient. - Exposure Risk Screening:: None identified. Screenin:20 Screening information is obtained from the patient. Fall risk: No risks identified. af2 Assistance ADL's: requires no assistance with activities of daily living. Abuse/DV Screen: The patient / caregiver reports he/she is: not in a situation that causes fear, pain or injury. Nutritional screening: No deficits noted. Advance Directives: Currently, there is no health care proxy. home support is adequate. Assessment: 19:21 General: Appears in no apparent distress, Behavior is cooperative, pt states that she af2 was seen in ED earlier today, released home. pt reports she received a call from Dr. Acevedo's office stating that she needs to return to hospital for admission as they will not do dialysis for her on Sunday.. Neurological: Level of Consciousness is awake, alert, obeys commands, Oriented to person, place, time. Cardiovascular: Heart tones S1 S2 present. GI: Reports diarrhea, nausea. Derm: Skin is normal. 23:01 General: Appears in no apparent distress, comfortable, Behavior is cooperative. Pain: jf3 Denies pain. Neurological: Level of Consciousness is awake, alert, Oriented to person, place, time. Cardiovascular: Capillary refill < 3 seconds. Cardiovascular: Chest pain is denied. Respiratory: Airway is patent Respiratory effort is even, unlabored, Respiratory pattern is regular, symmetrical, Denies shortness of breath at rest. Derm: Skin is normal. 23:17 General: piv initiated at this time, pt updated regarding plan of care. . af2 04/15 00:06 General: Appears in no apparent distress, comfortable, Behavior is appropriate for age, af2 cooperative, pt offers no complaints at this time. rr even and unlabored. skin w/d/i. . Respiratory: Airway is patent Respiratory effort is even, unlabored. GI: Reports diarrhea. Derm: Skin is normal. Vital Signs: 04/14 19:00 BP 183 / 77 RA Sitting (auto/reg); Pulse 89 RA; Resp 18 S; Temp 97.7(T); Pulse Ox 100% mt4 on R/A; Weight 68.04 kg (R); Height 5 ft. 3 in. (160.02 cm) (R); Pain 0/10; 23:01 BP 181 / 91; Pulse 84; Resp 16; Temp 98.7(T); Pulse Ox 98% on R/A; Pain 0/10; jf3 04/15 00:12 BP 172 / 81; Pulse 82; Resp 18 S; Temp 98.7(O); Pulse Ox 95% on R/A; af2 04/14 19:00 Body Mass Index 26.57 (68.04 kg, 160.02 cm) mt4 Vitals: 04/14 19:00 Log In Time: April 14, 2016 at 18:56. mt4 ED Course: 19:00 Patient visited by Isabel Stephens. mt4 19:00 Gibran Castillo is Private Physician. mt4 19:00 Patient moved to Waiting mt4 19:01 Patient moved to Pre RCE mt4 19:08 Triage Initiated jo3 19:10 Patient visited by Nilsa Gramajo RN. jo3 19:10 Caroline High,RN is Primary Nurse. jo3 19:10 Patient moved to 12 jo3 19:11 Patient visited by Nilsa Gramajo RN. jo3 19:11 [facility]. ke 19:12 Patient visited by Hasmukh Farrar FNP. ke 19:12 Patient visited by Hasmukh Farrar FNP. ke 19:21 Gibran Castillo is Hospitalizing Provider. ke 19:21 The patient / caregiver is instructed regarding the plan of care and ED course. Patient af2 has correct armband on for positive identification. 19:23 Patient visited by Caroline High RN. af2 19:52 [facility] [place] Payment Agreement was scanned into Qwilr and attached to record. gjb 23:01 No IV's were initiated during this patient's visit. No procedures done that require james3 assistance. 23:17 Patient visited by Caroline High RN. af2 23:17 Inserted saline lock: 20 gauge in right antecubital area The patient tolerated the af2 procedure well. 23:18 Patient visited by Caroline High RN. af2 04/15 00:07 Patient visited by Caroline High RN. af2 05:41 T-Sheet-- Draft Copy was scanned into Qwilr and attached to record. edda Order Results: There are currently no results for this order. Outcome: 04/14 19:21 Decision to Hospitalize by Provider. ke 04/15 00:06 Discharge Assessment: Patient awake, alert and oriented x 3. No cognitive and/or af2 functional deficits noted. Patient verbalized understanding of disposition instructions. patient administered narcotics - no. The following High Risk Discharge criteria are identified: None. Admitted to PCU accompanied by nurse, accompanied by tech, via stretcher, on monitor, with chart. Condition: stable. No special radiology studies were completed. Property :Personal belongings accompany Pt. 00:35 Patient left the ED. af2 Signatures: Hasmukh Farrar, Nilsa SoloRN RN Isabel Gastelum meCaroline Shine,JERONIMO schilling2 Rula Huerta Justin, RN RN jf3 Beck, Gabriela gjb Chart Complete MTDD
--- NOTE | 2016-04-17 01:36 | EDDOCDS ---
Physician Documentation [facility] Name: Subha Trivedi Age: 46 yrs Sex: Female : 1970 Arrival Date: 04/14/2016 Time: 18:56 Bed 12 Private MD: Gibran Castillo Disposition: 04/14/16 19:21 Hospitalization ordered by Gibran Castillo for Inpatient Admission. Preliminary diagnosis is End stage renal disease. - Bed requested for PCU. - Status is Inpatient Admission. af2 - Condition is Stable. - Problem is an ongoing problem. - Symptoms are unchanged. Historical: - Allergies: PENICILLINS; - Home Meds: 1. aspirin 81 mg Oral TbEC 1 tab once daily 2. atorvastatin 40 mg oral tab 1 tab once daily 3. ferrous sulfate 325 mg (65 mg iron) Oral cpER daily 4. gabapentin 600 mg Oral tab 1 tab 3 times per day 5. hydralazine 25 mg Oral tab 1 tab 2 times per day 6. isosorbide mononitrate 30 mg Oral Tb24 1 tab once daily 7. levothyroxine 100 mcg Oral cap once daily 8. lisinopril 5 mg Oral tab 1 tab once daily 9. MagOx 400 mg oral tab twice a day 10. metoprolol tartrate 12.5 mg Oral tab 1 tab 2 times per day 11. Renvela 800 mg oral tab 1 tab 3 times per day 12. Symbicort INH 2 puff daily 13. Vitamin D Oral 52319 unit weekly - PMHx: Anemia; CHF; Chronic Renal Disease; Diabetes; HTN; Left ovarian tumor, cancer, inoperable; peripheral neuropathy; PVD; Renal Failure with Dialysis; - PSHx: ; Tubal ligation; Dialysis Catherter Insertion; Angioplasty; Hysterectomy; - Social history: Smoking status: Patient uses tobacco products, light tobacco smoker. No barriers to communication noted, The patient speaks fluent Persian, Speaks appropriately for age. - Family history: Not pertinent. - : The pt / caregiver states he / she is not on anticoagulants. Home medication list is obtained from the patient. - Exposure Risk Screening:: None identified. 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 3 in. (160.02 cm) (R); Pain 0/10; 23:01 BP 181 / 91; Pulse 84; Resp 16; Temp 98.7(T); Pulse Ox 98% on R/A; Pain 0/10; jf3 04/15 00:12 BP 172 / 81; Pulse 82; Resp 18 S; Temp 98.7(O); Pulse Ox 95% on R/A; af2 04/14 19:00 Body Mass Index 26.57 (68.04 kg, 160.02 cm) mt4 MDM: 04/14 19:51 Financial registration complete. [facility] :52 [facility] Payment Agreement was scanned into LMN-1 and attached to record. gjb 22:36 Admission / Observation Status ordered. EDMS 22:36 2 GRAM SODIUM DIET ordered. EDMS 22:36 LOW FAT LOW CHOLESTEROL DIET ordered. EDMS 22:37 BASIC METABOLIC PROFILE Ordered. EDMS 23:10 Admission / Observation Status ordered. EDMS 04/15 05:41 T-Sheet-- Draft Copy was scanned into LMN-1 and attached to record. edda Signatures: Dispatcher [employer] EDMS Leyda Israel RN RN Hasmukh Stern, DRAWING KILN SUPERVISOR Nilsa FioreRN RN Caroline AvinaRN RN shakir2 Deanna, Telma Sherman The chart was reviewed and I authenticate all verbal orders and agree with the evaluation and treatment provided.Attachments: 04/14 19:52 [facility] Payment Agreement [facility] 04/15 05:41 T-Sheet-- Draft Copy [email or web address] Chart Complete MTDD
--- NOTE | 2016-04-17 01:36 | EDDOCDS ---
Physician Documentation [facility] Name: Subha Trivedi Age: 46 yrs Sex: Female : 1970 Arrival Date: 04/14/2016 Time: 18:56 Bed 12 Private MD: Gibran Castillo Disposition: 04/14/16 19:21 Hospitalization ordered by Gibran Castillo for Inpatient Admission. Preliminary diagnosis is End stage renal disease. - Bed requested for PCU. - Status is Inpatient Admission. af2 - Condition is Stable. - Problem is an ongoing problem. - Symptoms are unchanged. Historical: - Allergies: PENICILLINS; - Home Meds: 1. aspirin 81 mg Oral TbEC 1 tab once daily 2. atorvastatin 40 mg oral tab 1 tab once daily 3. ferrous sulfate 325 mg (65 mg iron) Oral cpER daily 4. gabapentin 600 mg Oral tab 1 tab 3 times per day 5. hydralazine 25 mg Oral tab 1 tab 2 times per day 6. isosorbide mononitrate 30 mg Oral Tb24 1 tab once daily 7. levothyroxine 100 mcg Oral cap once daily 8. lisinopril 5 mg Oral tab 1 tab once daily 9. MagOx 400 mg oral tab twice a day 10. metoprolol tartrate 12.5 mg Oral tab 1 tab 2 times per day 11. Renvela 800 mg oral tab 1 tab 3 times per day 12. Symbicort INH 2 puff daily 13. Vitamin D Oral 58866 unit weekly - PMHx: Anemia; CHF; Chronic Renal Disease; Diabetes; HTN; Left ovarian tumor, cancer, inoperable; peripheral neuropathy; PVD; Renal Failure with Dialysis; - PSHx: ; Tubal ligation; Dialysis Catherter Insertion; Angioplasty; Hysterectomy; - Social history: Smoking status: Patient uses tobacco products, light tobacco smoker. No barriers to communication noted, The patient speaks fluent Mongolian, Speaks appropriately for age. - Family history: Not pertinent. - : The pt / caregiver states he / she is not on anticoagulants. Home medication list is obtained from the patient. - Exposure Risk Screening:: None identified. 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 3 in. (160.02 cm) (R); Pain 0/10; 23:01 BP 181 / 91; Pulse 84; Resp 16; Temp 98.7(T); Pulse Ox 98% on R/A; Pain 0/10; jf3 04/15 00:12 BP 172 / 81; Pulse 82; Resp 18 S; Temp 98.7(O); Pulse Ox 95% on R/A; af2 04/14 19:00 Body Mass Index 26.57 (68.04 kg, 160.02 cm) mt4 MDM: 04/14 19:51 Financial registration complete. [facility] :52 [facility] Payment Agreement was scanned into [employer] and attached to record. gjb 22:36 Admission / Observation Status ordered. EDMS 22:36 2 GRAM SODIUM DIET ordered. EDMS 22:36 LOW FAT LOW CHOLESTEROL DIET ordered. EDMS 22:37 BASIC METABOLIC PROFILE Ordered. EDMS 23:10 Admission / Observation Status ordered. EDMS 04/15 05:41 T-Sheet-- Draft Copy was scanned into [employer] and attached to record. edda Signatures: Dispatcher [employer] EDMS Leyda Israel RN RN Hasmukh Stern, VEST BASTER Nilsa FioreRN RN Caroline AvinaRN RN [email or web address] Deanna, Telma Sherman The chart was reviewed and I authenticate all verbal orders and agree with the evaluation and treatment provided.Attachments: 04/14 19:52 [facility] Payment Agreement [facility] 04/15 05:41 T-Sheet-- Draft Copy [email or web address] Chart Complete MTDD
[2016-04-17] MEDS ORDERED: LISINOPRIL 10 MG TAB PO SCH (09:00)
[2016-04-17] MEDS ORDERED: GABAPENTIN 300 MG CAP PO SCH (09:00)
--- NOTE | 2016-04-18 07:03 | DSES ---
DATE OF ADMISSION: 04/14/2016 DATE OF DISCHARGE: 04/16/2016 DISCHARGE DIAGNOSIS: Fluid overload. SECONDARY DIAGNOSES: 1. Hypertensive urgency. 2. End stage renal disease. 3. Medical noncompliance. 4. Dyslipidemia. 5. Hypothyroidism. 6. Neuropathy. 7. Congestive heart failure. HOSPITAL COURSE: The patient is a 46-year-old female who recently followed with nephrology, PCP and outpatient hemodialysis in [place] who two months ago left to go live in [place] and she moved all of her records and dialysis sheet there. However, her life in [place] did not work out as she foresaw. She abruptly left [place] and returned to [place]. She went two weeks without any medications or dialysis. She presented to her dialysis center for hemodialysis and then was told that she could not be dialyzed there and she had lost her seat. She then presented to the emergency room where she was evaluated and she was set up for her outpatient hemodialysis seat, but then was discharged. She then called the dialysis center and was informed that since she had not had dialysis for two weeks they would not dialyze her there until she received dialysis once in the hospital. As such, the patient represented to the hospital on the same day and was admitted. She was seen in consultation by Dr. Mcdaniel of nephrology. The patient was found to be in hypertensive urgency secondary to medication nonadherence and fluid overload. She was dialyzed the next day on 04/15/2016. She was asymptomatic during her stay prior to dialysis and asymptomatic following it. It was arranged for her to undergo outpatient hemodialysis on outpatient setting back at her previous center on 04/17/2016. SUBJECTIVE: Today, the patient reports she is excited to go home. She has none of her medications. She denies chest pain or shortness of breath, fevers, chills, nausea, vomiting or diarrhea. OBJECTIVE: VITAL SIGNS: Temperature 98.6, pulse 83, respiratory rate 18, blood pressure 158/76, and oxygen saturation 92% on room air. GENERAL: She is a pleasant, middle aged female laying flat in bed in no distress. HEENT: Cranial nerves II-XII are grossly intact. No elevation of central venous pressure. CARDIOVASCULAR: S1, S2, regular. RESPIRATORY EXAM: Clear. She has mild bibasilar rales. ABDOMINAL EXAM: Benign. EXTREMITIES: There is 2+ edema bilaterally. LABORATORY STUDIES: WBC 5.2, hemoglobin 9.0, hematocrit 29.7 and platelet count 197. Chemistry panel with sodium 143, potassium 3.9, chloride 106, bicarbonate 29, BUN 25, creatinine 4.0. IMAGING: No imaging. ASSESSMENT AND PLAN: 46-year-old female with hypertensive urgency and fluid overload in the setting of medical nonadherence with end stage renal disease. PROBLEMS: 1. End stage renal disease. Patient was fluid overloaded and had hypertensive urgency secondary to medication nonadherence. She was dialyzed. Her blood pressures improved. Her fluid status is somewhat improved as well. She has been set up to undergo outpatient hemodialysis tomorrow on 04/17/2016. She has been seen by Dr. Mcdaniel of nephrology who is okay with her being discharged today. The patient is being discharged home to the care of her family. She is continued on her Renvela and PTH was ordered and pending at the time of discharge. She will followup with Dr. Mcdaniel as scheduled. 2. Anemia likely secondary to end stage renal disease. 3. Hypertension. Hypertensive urgency worsened by fluid overload, but also likely medication nonadherence as she was not taking her significant antihypertensives. New prescriptions for all of her medications have been sent to her pharmacy. 4. Dyslipidemia. The patient is on Lipitor. 5. Hypothyroidism. The patient is on levothyroxine. 6. Neuropathy. The patient is on Neurontin. 7. Congestive heart failure. Fluid status is optimized by hemodialysis. 8. Deep vein thrombosis prophylaxis. Patient has been on heparin. 9. Medical nonadherence. It was stressed to her how important it is to continue with regular hemodialysis and to not have a break in hemodialysis or in her medications and this could potentially be life threatening for her. DISPOSITION: The patient will be discharged home to the care of her family. She is to followup with her PCP within 7 days, Dr. Mcdaniel as scheduled. Her activity is as prior to admission. Her diet is renal. She has been advised to return to the emergency room if symptoms worsen. MEDICATIONS AT THE TIME OF DISCHARGE: (Renewal scripts sent for all the following medications) - aspirin 81 mg daily - atorvastatin 40 mg daily - Symbicort 160/4.5 one puff inhaled twice a day - vitamin D 50,000 units weekly - ferrous sulfate 325 mg daily - gabapentin 600 mg three times a day - hydralazine 25 mg twice a day - isosorbide mononitrate 30 mg daily - levothyroxine 100 mcg daily - lisinopril 5 mg daily - magnesium oxide 400 mg twice a day - metoprolol tartrate 12.5 mg twice a day - Renvela 800 mg three times a day with meals Greater than 30 minutes was spent organizing disposition.
== END 2016-04-16 10:46 | disposition home or self-care (01) | DRG 460 ==
LOC: M ED 18:56 → M ED INP 22:31 → M PCU 04-15 00:31
PROVIDERS: ADMIT Internal Medicine; ATTEND Internal Medicine
PROC: 5A1D00Z (ICD-10-PCS; principal; 2016-04-15)
DX: I12.0 Hypertensive chronic kidney disease with stage 5 chronic kidney disease or end stage renal disease (principal); E11.21 Type 2 diabetes mellitus with diabetic nephropathy; N25.81 Secondary hyperparathyroidism of renal origin; I50.9 Heart failure, unspecified; N18.6 End stage renal disease; E11.319 Type 2 diabetes mellitus with unspecified diabetic retinopathy without macular edema; G62.9 Polyneuropathy, unspecified; I16.0 Hypertensive urgency; E87.70 Fluid overload, unspecified; E03.9 Hypothyroidism, unspecified; H54.42 Blindness, left eye, normal vision right eye; I73.9 Peripheral vascular disease, unspecified; D63.1 Anemia in chronic kidney disease; Z79.82 Long term (current) use of aspirin; Z79.899 Other long term (current) drug therapy; Z79.01 Long term (current) use of anticoagulants; Z99.2 Dependence on renal dialysis; Z88.0 Allergy status to penicillin; Z91.19 Patient's noncompliance with other medical treatment and regimen; Z87.891 Personal history of nicotine dependence; Z90.710 Acquired absence of both cervix and uterus; Z79.4 Long term (current) use of insulin

== ENCOUNTER 2016-08-07 12:34 | Inpatient (IN) | payer OTHER ==
[2016-08-07] VITALS (9 sets, daily range): BP systolic 111–136; BP diastolic 55–66
[~2016-08-07] VITALS: Ht 160 cm; Wt 65.8 kg
[~2016-08-07 12:34] MED LIST changes: +ASPI1TAB PO; +GABA600T PO; +METO-346 PO; +RENV2TAB PO
[2016-08-07] MEDS ORDERED: FERR325T PO (15:29)
[2016-08-07] MEDS ORDERED: ASPI1TAB PO (15:29)
[2016-08-07] MEDS ORDERED: LISI-542 PO (15:29)
[2016-08-07] MEDS ORDERED: RENV2TAB PO (15:29)
[2016-08-07] MEDS ORDERED: ATOR40TA PO (15:29)
[2016-08-07] MEDS ORDERED: METO-346 PO (15:29)
[2016-08-07] MEDS ORDERED: GABA600T PO (15:29)
[2016-08-07] MEDS ORDERED: MAGN400T2 PO (15:29)
[2016-08-07] MEDS ORDERED: SYNT100T PO (15:29)
[2016-08-07] MEDS ORDERED: ISOS30TA4 PO (15:29)
[2016-08-07] MEDS ORDERED: SLF 3 ML SYR IV PRN (15:45)
[2016-08-07] MEDS ORDERED: GLUCOSE 4 GM CHEW TABLET PO PRN (16:15)
[2016-08-07] MEDS ORDERED: DEXTROSE 50% 50 ML SYRINGE IV PRN (16:15)
[2016-08-07] MEDS ORDERED: GLUCAGON FOR INJ 1 MG VIAL (J1610) SC PRN (16:15)
[2016-08-07 16:33] LABS: INR 1.14
[2016-08-07 16:42] LABS: MEAN CORPUSCULAR HEMOGLOBIN 24.7 pg (27.0-33.0); MEAN CORPUSCULAR HGB CONC 28.9 g/dl (32.0-36.5); MEAN CORPUSCULAR VOLUME 85.3 fl (80.0-96.0); RED CELL DISTRIBUTION WIDTH 15.2 % (11.5-14.5); WHITE BLOOD COUNT 8.5 K/mm3 (4.0-10.0)
[2016-08-07 16:49] LABS: ALBUMIN 2.3 GM/DL (3.2-5.2); CALCIUM LEVEL 8.5 MG/DL (8.5-10.1); CREATININE FOR GFR 8.57 MG/DL (0.55-1.02); GLOMERULAR FILTRATION RATE 5.4 (>58); PHOSPHORUS LEVEL 3.5 MG/DL (2.5-4.9); POTASSIUM SERUM 4.8 MEQ/L (3.5-5.1)
[2016-08-07] MEDS ORDERED: DOCUSATE SODIUM 100 MG CAP PO PRN (17:15)
[2016-08-07] MEDS ORDERED: oxyCODONE 5MG TAB PO PRN (17:15)
[2016-08-07] MEDS: GABAPENTIN 300 MG CAP PO SCH ×2 (17:16→21:30)
[2016-08-07] MEDS: (RENVELA) SEVELAMER **CARBONate** 800 MG TAB PO SCH (17:16)
[2016-08-07] MEDS: HumaLOG INSULIN (NovoLOG) PER UNIT SC SCH ×2 (17:17→21:00)
[2016-08-07] MEDS: METOPROLOL TART 12.5 MG PER 1/2 TAB PO SCH (21:00)
[2016-08-07] MEDS: ATORVASTATIN 20 MG TAB PO SCH (21:30)
[2016-08-07] MEDS: SLF 3 ML SYR IV SCH (21:30)
[2016-08-07] MEDS: ACETAMINOPHEN TAB 650MG DOSE (2X325MG) PO PRN (21:31)
--- NOTE | 2016-08-07 22:36 | HPE ---
DATE OF ADMISSION: 08/07/2016 PRIMARY CARE PROVIDER: Dr. Gibran Castillo, [place], [place] SETTLEMENT TECHNICIAN: Dr. Camilla Acevedo CHIEF COMPLAINT: Abdominal pain. HISTORY OF PRESENT ILLNESS: Ms. Trivedi is a 46-year-old female with past medical history of end-stage renal disease on hemodialysis, type 2 diabetes, chronic anemia, who is transferred from [facility] due to worsening abdominal pain. Her pain is located on right upper and lower quadrant. Describes it as sharp, constant. Occasionally would radiate to her back. It is worse with movement, improves with lying still. Denies similar episodes in the past. She actually attempted to take some Tylenol at home without significant relief of symptoms. Associated with nausea and emesis. Her last emesis was this morning, mostly yellow phlegm content. States that she had multiple episodes of emesis in the past, mostly food. No hematemesis. Does report decreased appetite but no weight changes. Also reports episodes of diarrhea approximately a week ago which has since resolved. States that when she was having diarrhea she reported melena content, which she attributes to her iron supplementation. This has been since resolved, approximately one week previously. States that in the last week she has not had a bowel movement. Denies chest pain, palpitations, fevers, chills, paroxysmal nocturnal dyspnea, pillow orthopnea, leg swelling. Reports shortness of breath with exertion though she is unable to tell how far she can walk before getting shortness of breath and unable to tell how long ago this started. Because of her abdominal pain, she actually missed her dialysis Sunday. She did not present to the hospital earlier despite her abdominal pain, because she did not have a ride. At [facility], she had lab work that showed hemoglobin 6.7, hematocrit 23 , platelets 507, sodium 132, potassium 4.9, chloride 89, carbon dioxide 23, BUN 59 , creatinine 8.5. She also had a CT of the abdomen and pelvis done at [place] which reported abdominal ascites and diffuse subcutaneous edema, anasarca pattern, thickening of the large and small bowel wall secondary to ascites. EKG there showed sinus rhythm. Ventricular rate of 75. PAST MEDICAL HISTORY: End-stage renal disease, on hemodialysis Sunday, Sunday, Sunday. Last dialysis was Sunday. Type 2 diabetes. Somehow is not on medication. Hypertension. Hyperlipidemia. Congestive heart failure. Echo from May 29, 2015 showed ejection fraction (EF) of 25 to 30%. Pericardial effusion in 2016, status post pericardiocentesis. Peripheral vascular disease. Chronic anemia. Peripheral neuropathy. Hypothyroidism. Diabetic neuropathy. Diabetic retinopathy. PAST SURGICAL HISTORY: Cardiac catheterization in March 2016, without stent placement. The reason unclear. This was done in [place]. Hysterectomy. Right foot biopsy, unclear. This was performed due to her difficulty with walking. Chest tube placement, status post removal in May 2015. Pericardiocentesis with tube pericardiostomy. section. Tubal ligation. Status post left upper arm arteriovenous (AV) fistula creation leading to steal syndrome and has since been ligated. Right AV graft formation. ALLERGIES: PENICILLIN-rash and hives. HOME MEDICATIONS: - aspirin 81 mg by mouth daily - Lipitor 80 mg by mouth at bedtime - ferrous sulfate 325 mg by mouth daily - gabapentin 600 mg by mouth three times a day - isosorbide mononitrate 30 mg by mouth daily - Synthroid 100 mcg by mouth daily - lisinopril 5 mg by mouth daily - magnesium oxide 400 mg by mouth twice a day - metoprolol tartrate 12.5 mg by mouth twice a day - Renvela 800 mg with meals SOCIAL HISTORY: The patient is a current smoker. Smokes 5 cigarettes a day. She has an approximately 30 pack year of tobacco use. No alcohol or drug use. Currently lives at home with her father and son. She has been to [place]. Never had exposure to tuberculosis. 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 FAMILY HISTORY: There is history of liver cirrhosis. No kidney disease. REVIEW OF SYSTEMS: CONSTITUTIONAL: Positive for feeling weak, but no fevers, night sweats, rigors. Positive for chronic chills. HEENT: Positive for chronic left eye blindness. CARDIOVASCULAR: Denies chest pain, palpitations, leg swelling. PULMONARY: As above. GASTROINTESTINAL: As above. GENITOURINARY: She reports decreased urination, however, she continues to report intermittent urination despite being end-stage renal disease. No hematuria. MUSCULOSKELETAL: No bone, muscle, joint pain. NEUROLOGICAL: Positive diabetic neuropathy. No history of seizure disorder. Positive for paresthesia to her upper and lower extremities bilaterally. ENDOCRINE: Positive for diabetes and thyroid disease. LYMPHATICS: No new lumps, bumps, or swelling anywhere in neck, axilla, or groin. HEMATOLOGY: No abnormal bleeding or bruising. ONCOLOGY: No history of malignancy. PSYCHIATRIC: Negative for depression, anxiety. SKIN: No new rashes. PHYSICAL EXAMINATION: VITAL SIGNS: Blood pressure 125/60, heart rate 77, respiration rate 14, pulse oximetry 97% on room air. Temperature 98.9. GENERAL: The patient is lying in bed, comfortable. No acute distress. Family at bedside. Appears older than stated age. Chronically ill appearing and pale. HEENT: Normocephalic, atraumatic. Moist oral mucosa. Edentulous. No thrush or lesions appreciated. Eyes: Extraocular movement intact. Pupil equal and reactive to light. NECK: Supple. Trachea midline. Minimal neck vein distention. CHEST: Symmetric chest rise. No accessory muscle use. Breath sounds were clear to auscultation bilaterally. HEART: Regular rate and rhythm with normal S1, S2. There is a systolic murmur in the left second intercostal border without radiation to the carotid. ABDOMEN: Protuberant. Mildly distended and tender to palpation. Most significant in left lower quadrant. No guarding. No rebound. No peritoneal sign. GENITOURINARY (): Hemoccult was negative. No obvious lesions or mass appreciated on rectal exam. EXTREMITIES: No pedal edema. Pedal pulses present bilaterally. Right middle thigh with graft in place. Positive for bruit and thrill. SKIN: No obvious rashes appreciated. Her skin appears pale. NEUROLOGICAL: No focal deficits appreciated. Did not assess gait. PSYCHIATRIC: Pleasant, cooperative. Normal affect. LABORATORY DATA: WBC 8.5, hemoglobin 6.8, hematocrit 23.6, platelets 556. Sodium 131, potassium 4.8, chloride 95, carbon dioxide 26, BUN 65, creatinine 8.57. Glucose 172, albumin 2.3. Coags: PT 14.7, INR 1.14. CT result is as mentioned from [facility]. IMPRESSION/PLAN: Ms. Subha Trivedi is a 46-year-old female with past medical history of type 2 diabetes and end-stage renal disease on hemodialysis who was transferred here from [facility] due to worsening abdominal pain and concern for ascites. 1. Abdominal pain. Likely secondary to her ascites. She denies a history of ascites in the past. The patient will be monitored closely. We have consulted Dr. Acevedo for the possibility of dialysis. Her last dialysis was Sunday. She missed her dialysis recently due to her abdominal pain. 2. Anemia. Her baseline hemoglobin fluctuates anywhere around 8 to 10 range. This is the lowest hemoglobin she ever had. A consent for blood has been obtained. The patient will be typed and screened and we will plan for one unit of blood transfusion. Will continue with iron supplementation. 3. End-stage renal disease. On hemodialysis. The patient normally receives dialysis Sunday, Sunday, Fridays. We have consulted Dr. Acevedo for assistance. Will follow with his recommendations. 4. Diabetes. Most recent hemoglobin A1c reportedly is 9 per patient. She is not on any hypoglycemic outpatient. Reason unclear. She will be placed on carbohydrate consistency diet and insulin sliding scale. 5. Hypertension. Blood pressure is reasonable. Continue home medication including lisinopril, isosorbide, mononitrate and Lopressor 12.5 mg by mouth twice a day. 6. Congestive heart failure, systolic. Currently does not appear to be grossly fluid overloaded. Most recent echo in our record was back in May of 2015. At that time EF was 25 to 30%. The patient will be planning for dialysis per Dr. Acevedo's recommendation. 7. Secondary hypoparathyroidism. Continue Renvela, home dose. 8. Hypothyroidism. Continue home dose of levothyroxine. 9. Tobacco abuse. Have started her on nicotine patch. 10. Deep venous thrombosis (DVT) prophylaxis. Sequential compression devices (SCDs), thromboembolism deterrents (TEDs), no pharmacological intervention secondary to severe anemia. DISPOSITION: Due to patient's condition, we expect her stay to be greater than two midnights. My preceptor for this patient encounter was Dr. August Cordova. The preceptor was physically present in the building during the encounter and was fully available. As needed, all aspects of the patient interview, examination, medical decision making process, and medical care plan development were reviewed and approved by the preceptor. The preceptor is aware and concurs with the plan as stated in the body of this note and will attest to such by his/her cosignature. LESVIA
[2016-08-08] VITALS: BP 115/55
[2016-08-08 05:18] VITALS: BP 105/59
[2016-08-08] MEDS: (RENVELA) SEVELAMER **CARBONate** 800 MG TAB PO SCH ×3 (05:44→18:40)
[2016-08-08] MEDS: LEVOTHYROXINE 0.1 MG TAB (100 MCG) PO SCH (05:44)
[2016-08-08] MEDS: GABAPENTIN 300 MG CAP PO SCH ×3 (05:45→20:47)
[2016-08-08] MEDS: METOPROLOL TART 12.5 MG PER 1/2 TAB PO SCH ×2 (05:45→20:50)
[2016-08-08] MEDS: SLF 3 ML SYR IV SCH ×3 (05:48→20:55)
[2016-08-08 07:17] LABS: MEAN CORPUSCULAR HEMOGLOBIN 25.4 pg (27.0-33.0); MEAN CORPUSCULAR HGB CONC 29.6 g/dl (32.0-36.5); MEAN CORPUSCULAR VOLUME 85.9 fl (80.0-96.0); RED CELL DISTRIBUTION WIDTH 15.3 % (11.5-14.5); RETICULOCYTE % ADVIA2120 1.3 % (0.5-1.5); WHITE BLOOD COUNT 8.8 K/mm3 (4.0-10.0)
[2016-08-08 07:24] LABS: ALBUMIN 2.1 GM/DL (3.2-5.2); CALCIUM LEVEL 8.2 MG/DL (8.5-10.1); CREATININE FOR GFR 9.28 MG/DL (0.55-1.02); GLOMERULAR FILTRATION RATE 4.9 (>58); PERCENT SATURATION 29.5 % (13.2-37.4); PHOSPHORUS LEVEL 3.6 MG/DL (2.5-4.9); POTASSIUM SERUM 4.7 MEQ/L (3.5-5.1)
[2016-08-08] MEDS: ISOSORBIDE MON. (IMDUR) 30 MG XR TAB PO SCH ×2 (07:40→15:17)
[2016-08-08] MEDS: LISINOPRIL 5 MG TAB PO SCH ×2 (07:41→15:17)
[2016-08-08] MEDS: NICOTINE 7 MG/24 HR TRANSDERMAL TD SCH (07:42)
[2016-08-08] MEDS: FERROUS SULFATE 325MG TAB PO SCH (07:51)
[2016-08-08] MEDS: HumaLOG INSULIN (NovoLOG) PER UNIT SC SCH ×4 (07:51→20:55)
[2016-08-08 10:05] LABS: ALBUMIN/GLOBULIN RATIO 0.44 (1.00-1.93); BILIRUBIN,DIRECT 0.2 MG/DL (0.0-0.2); BILIRUBIN,TOTAL 0.4 MG/DL (0.2-1.0); TOTAL PROTEIN 6.9 GM/DL (6.4-8.2)
[2016-08-08] MEDS ORDERED: HEPARIN 1,000 UNITS/ML 10ML VIAL (FOR RADIOLOGY& DIALYSIS ONLY) IV ONE (10:45)
--- NOTE | 2016-08-08 12:47 | IPN ---
DATE: 08/08/2016 Ms. Trivedi is seen this morning during hemodialysis. She reports that her abdominal pain has resolved. She denies any nausea, vomiting, dyspnea or chest pain. She did have loose stools again morning with incontinence. There is no fever or chills. PHYSICAL EXAMINATION: Temperature 98.7 degrees Fahrenheit, heart rate 75 per minute, respiratory rate14 per minute. Blood pressure 105/59 mmHg and oxygenation 94% room air. Head is atraumatic. Ears, nose and throat are unremarkable. Neck is supple and without JVD or thyroid enlargement. Heart: Sounds are regular and lungs clear to auscultation. Abdomen is distended with ascites. Hepatomegaly is noted. Extremities have no cyanosis or clubbing. Skin has no rash or ulcers. Neurologically she is awake, alert and oriented times three. Today's labs show WBC count 8.8, hemoglobin 7.6 and hematocrit 25.9. Platelets 518. Sodium 130 and potassium 4.7. BUN 69 and creatinine 9.28. Hemoglobin A1c 9.0%. Her iron level was 51, saturation 29.5% and ferritin 2841. PROBLEMS: 1. End-stage renal disease: The patient is regularly dialyzed on Sunday, Sunday and Sunday schedule. She missed her dialysis on Sunday and again Sunday. She is being dialyzed today. I have discussed with the patient and her sister who is present on the bedside about need for better compliance with dialysis treatment. She has been chronically noncompliant and has been missing frequently. 2. Diabetes: Her diabetes remains poorly controlled with A1c 9.0. She is currently receiving insulin per coverage. She has not been using any insulin at home. Again need for compliance has been explained. 3. Hyponatremia: She does have mild hyponatremia with hyperglycemia. It is likely to improve with hemodialysis. No other intervention is indicated. 4. Severe anemia: Iron studies are appropriate with very high ferritin level. The patient is going to receive 2 units of packed RBCs during dialysis today. She will be given Aranesp for further improvement in her anemia. She is also on oral iron supplement which will be continued. 5. Hypertension: Blood pressure seems well controlled. No changes in antihypertensives are indicated. 6. Ascites with possible cirrhosis of liver: This is a new finding. The patient is likely to require a diagnostic paracentesis for further evaluation. I have discussed the patient with Dr. He. LAKHANI
[2016-08-08] MEDS: HEPARIN SOD (PORCINE) 5000 UNITS/ML VIAL SQ SCH ×2 (14:00→20:47)
[2016-08-08 14:46] LABS: SPEC. GRAVITY BODY FLUIDS 1.033 (NOT ESTABLISHED)
[2016-08-08 15:08] LABS: RBC ASCITES FLUID < 10 (<10mm3 cells/uL); TNC ASCITES FLUID 3878 cells/uL (0-20)
[2016-08-08 15:13] LABS: TOTAL PROTEIN, BODY FLUID 5.3 G/DL (NOT ESTABLISHED)
[2016-08-08 15:36] LABS: BF DIFF IF INDICATED? YES (NO)
[2016-08-08 15:45] LABS: CC BF DIFF EXAM CYTOCENTRIFUGE
--- NOTE | 2016-08-08 17:19 | REP ---
ULTRASOUND GUIDED PARACENTESIS: The procedure was performed under the direct supervision of Dr. Marlow. The risks and benefits of the procedure were explained to the patient and informed consent was obtained. The largest pocket of fluid was localized in the right lower quadrant using ultrasound guidance. The skin was prepped and draped in a sterile fashion. 1% Lidocaine was used as a local anesthetic. Using ultrasound guidance an 8-Slovak [id number] catheter was inserted using trocar technique. 2000 mL yellow fluid was withdrawn and sent to the lab. The patient tolerated the procedure well and there were no immediate complications. Reviewed by PINKY Carr 08/09/2016 09:19 AEdited and Signed by Eusebio Marlow MD 08/10/2016 04:57 P
--- NOTE | 2016-08-08 17:35 | IPN ---
DATE: 08/08/2016 Patient admitted yesterday. Currently continues to report abdominal bloating, but denies any abdominal pain. Patient reported bloating with abdominal distention has been happening for a few months already. Does report family history of cirrhosis with family who from liver failure. Denies alcohol drinking. Denies history of hepatitis. Reported missing dialysis. Denies any chest pain, pressure, or discomfort. Denies any shortness of breath. VITAL SIGNS: Temperature 99.5, pulse 91, respirations 18, blood pressure 180/90, pulse oximetry 99% on room air. LABORATORY DATA: WBC 8.8, hemoglobin and hematocrit 7.6/25.9, repeat after one unit of packed red blood cells (PRBCs) 9.5/30.9, platelets 518. Chemistry: Sodium 130, potassium 4.7, chloride 96, bicarbonate 25, BUN 69, creatinine 9.28, A1c 9. PHYSICAL EXAMINATION: GENERAL: Patient seen in dialysis, appears to be weak, in no acute distress. HEENT: Normocephalic, atraumatic. PULMONARY: Bilaterally clear to auscultation. No wheezes, rales, or rhonchi. CARDIAC: Regular rate and rhythm, systolic murmur 2/6 noted. ABDOMEN: Distended. Distant bowel sounds. Positive fluid wave. No rebound, no guarding. EXTREMITIES: No edema bilateral lower extremities. ASSESSMENT AND PLAN: This is a 46-year-old female patient with underlying medical history of type 2 diabetes, end-stage renal disease on hemodialysis, with newly developing ascites, poor compliance, anemia of chronic disease, admitted for missing dialysis and worsening abdominal distention and pain. 1. Abdominal distention and pain with worsening ascites, possibly secondary to fluid overload versus underlying hepatic etiology. Liver function tests appreciated. Followup hepatitis panel. Ultrasound of the liver. Paracentesis for diagnosis. Ascites fluid suggestive of spontaneous bacterial peritonitis (SBP). Will start the patient on cefepime. Followup cultures. 2. Anemia, likely anemia of chronic disease. Transfused one unit packed red blood cells (PRBCs). Anemia workup appreciated. 3. End-stage renal disease. Missing dialysis, patient poorly compliant, dialysis Mondays, Wednesdays, Fridays. Nephrology, Dr. Acevedo, consulted, appreciate his assistance. 4. Type 2 diabetes. A1c at 9. Patient poorly compliant. Insulin as per protocol. Followup finger sticks, adjust as needed. 5. Hypertension. Continue Imdur, lisinopril, Lopressor. Monitor blood pressure, adjust as needed. 6. Hypothyroidism. Continue Synthroid. 7. Diabetic neuropathy. Continue Neurontin. 8. Smoking. Counseling provided. Nicotine patch. 9. Deep venous thrombosis (DVT) prophylaxis. Heparin subcutaneous. 10. Patient had diarrhea. Stool studies, gastrointestinal (GI) panel, as well as stool electrolytes and osmolality have been sent. Will monitor fluid status. Currently, given patient's end-stage renal disease, will not put the patient on IV fluids. Diet as tolerated. DISPOSITION: Pending clinical improvement. Further workup for cirrhosis.
[2016-08-08] MEDS: ACETAMINOPHEN TAB 650MG DOSE (2X325MG) PO PRN (18:40)
[2016-08-08] MEDS: ONDANSETRON 4MG/2ML VIAL (J2405) IV PRN (18:40)
[2016-08-08 18:45] VITALS: BP 142/67
[2016-08-08 19:50] VITALS: BP 124/58
[2016-08-08] MEDS ORDERED: CEFEPIME HCL 0.5 GM in D5W MINI-BAG PLUS 50 ML IV ONE (20:00)
[2016-08-08] MEDS: ATORVASTATIN 20 MG TAB PO SCH (20:47)
[2016-08-09] MEDS: SLF 3 ML SYR IV SCH ×3 (00:12→20:58)
[2016-08-09] MEDS: VANCOMYCIN ORAL SOL 250MG/5ML ORAL SYRINGE PO SCH ×5 (00:12→21:00)
--- NOTE | 2016-08-09 05:21 | REP ---
Clinical: Ascites. Technique: Marlow scale ultrasound examination using curved array transducer. Findings: Survey ultrasound examination through the abdomen and pelvis demonstrates mild to moderate amount of ascites predominate within the right upper quadrant. Impression: Mild to moderate amount of ascites predominate right upper quadrant. Signed by Bin Liang MD 08/09/2016 05:12 A
[2016-08-09 06:00] VITALS: BP 118/65
[2016-08-09] MEDS: LEVOTHYROXINE 0.1 MG TAB (100 MCG) PO SCH (06:08)
[2016-08-09 07:06] LABS: MEAN CORPUSCULAR HEMOGLOBIN 25.5 pg (27.0-33.0); MEAN CORPUSCULAR HGB CONC 29.7 g/dl (32.0-36.5); MEAN CORPUSCULAR VOLUME 85.8 fl (80.0-96.0); RED CELL DISTRIBUTION WIDTH 15.6 % (11.5-14.5); WHITE BLOOD COUNT 8.2 K/mm3 (4.0-10.0)
[2016-08-09 07:16] LABS: CALCIUM LEVEL 7.9 MG/DL (8.5-10.1); CREATININE FOR GFR 5.15 MG/DL (0.55-1.02); GLOMERULAR FILTRATION RATE 9.6 (>58); MAGNESIUM LEVEL 1.9 MG/DL (1.8-2.4); PHOSPHORUS LEVEL 2.9 MG/DL (2.5-4.9); POTASSIUM SERUM 3.7 MEQ/L (3.5-5.1)
[2016-08-09] MEDS ORDERED: DARBEPOETIN 100 MCG/0.5 ML *NON-DIALYSIS* SYRINGE (J0881) SC SCH (09:00)
[2016-08-09] MEDS: NICOTINE 7 MG/24 HR TRANSDERMAL TD SCH (09:00)
[2016-08-09] MEDS: HEPARIN SOD (PORCINE) 5000 UNITS/ML VIAL SQ SCH ×2 (09:34→21:00)
[2016-08-09] MEDS: (RENVELA) SEVELAMER **CARBONate** 800 MG TAB PO SCH ×3 (09:37→18:00)
[2016-08-09] MEDS: METOPROLOL TART 12.5 MG PER 1/2 TAB PO SCH ×2 (09:37→21:00)
[2016-08-09] MEDS: GABAPENTIN 300 MG CAP PO SCH ×3 (09:37→21:00)
[2016-08-09] MEDS: LISINOPRIL 5 MG TAB PO SCH (09:38)
[2016-08-09] MEDS: ISOSORBIDE MON. (IMDUR) 30 MG XR TAB PO SCH (09:38)
[2016-08-09] MEDS: FERROUS SULFATE 325MG TAB PO SCH (09:38)
[2016-08-09] MEDS: HumaLOG INSULIN (NovoLOG) PER UNIT SC SCH ×4 (09:39→20:21)
--- NOTE | 2016-08-09 11:03 | IPN ---
DATE OF SERVICE: 08/09/2016 Ms. Trivedi is seen this morning on her bedside. She has been diagnosed with Clostridium (C) difficile colitis. She had a diagnostic tap done for her ascites. She has no fever or chills. Her abdominal pain has improved. She denies any nausea or vomiting today. On physical examination, temperature 98.8 degrees Fahrenheit, heart rate 80 per minute, and respiratory rate 16 per minute. Blood pressure 130/62 mmHg and oxygen saturation 94% on room air. Head: Is atraumatic. Ears, nose, and throat are unremarkable. Neck is supple and without jugular venous distention (JVD) or thyroid enlargement. Heart sounds are regular with systolic murmur grade 2/6. Lungs: Clear to auscultation. Abdomen: Soft and nontender. Ascites is present. Extremities: Have no cyanosis or clubbing. Skin has no rash or ulcers. Neurologically, she has no focal deficit. Today's laboratories show WBC count 8.2, hemoglobin 7.7, and hematocrit 26.0. Platelets of 463. Sodium 136 and potassium 3.7. BUN 35 and creatinine 5.15. Albumin 2.0. PROBLEMS: 1. End-stage renal disease. The patient is regularly dialyzed on Sunday, Sunday, and Sunday schedule. We will get her back on the schedule by dialyzing her again today. 2. Anemia. Her anemia has worsened, and she will receive 1 more unit of packed red blood cells (RBCs) today during dialysis. 3. Abdominal pain and ascites. I have discussed with Dr. Barahona, and the patient is likely to require a CT scan of abdomen and pelvis with intravenous (IV) contrast to look at her pancreas. She is okay from renal standpoint to receive the contrast, as she is currently dialysis dependent. She will be dialyzed again on Sunday. 4. Diarrhea. This is a chronic issue and most likely related to C. difficile. The patient has already been started on oral vancomycin pending infectious disease consultation.
[2016-08-09] MEDS ORDERED: HEPARIN 1,000 UNITS/ML 10ML VIAL (FOR RADIOLOGY& DIALYSIS ONLY) IV ONE (11:45)
[2016-08-09 14:00] VITALS: BP 140/80
--- NOTE | 2016-08-09 14:04 | IPN ---
DATE OF SERVICE: 08/09/2016 Patient seen and examined. Reported diarrhea to be much improved. Denies any nausea or vomiting. Status post paracentesis. Reports abdominal distention to be improved. Denies any chest pain, pressure or discomfort. VITAL SIGNS: T-max 100.4, T-current 98.8, pulse 79, respirations 16, blood pressure 130/62, pulse oximetry 94% on room air. LABORATORIES: WBC 8.2, hemoglobin and hematocrit 7.7/26, platelets 463. Chemistries: Sodium 136, potassium 3.7, chloride 101, bicarb 26, BUN 36, creatinine 5.15. GENERAL: Patient appears to be weak, in no acute distress. HEENT: Normocephalic, atraumatic. PULMONARY: Bilaterally clear to auscultation. No wheezing, rales or rhonchi. CARDIAC: Regular rate and rhythm. Normal S1 and S2. 2/6 systolic murmur. ABDOMEN: Soft, mildly distended. Positive fluid wave. Positive bowel sounds. No rebound. No guarding. EXTREMITIES: No edema bilateral lower extremities. ASSESSMENT/PLAN: This is a 46-year-old female patient with underlying medical history of type 2 diabetes, end stage renal disease on hemodialysis with newly developing ascites, poor compliance, anemia of chronic disease, chronic diarrhea admitted with missing dialysis and worsening abdominal distention and pain. 1. Abdominal distention and pain with worsening ascites, possibly secondary to fluid overload versus hepatic etiology versus pancreatic. Ascites fluid is appreciated. Will follow CT of the abdomen with pancreatic protocol. Fluids for cytology as well as fluids for amylase. Followup CEA. Hepatitis panel appreciated. Ultrasound of right upper quadrant appreciated. Fluid suggestive of SBP. Patient started on cefepime. Infectious disease, Dr. Rand, consulted. Followup cultures. 2. Diarrhea with C. difficile colitis. Patient started on vancomycin with improvement. Bacid has been added. Currently we are not sure whether the patient's ascites fluid finding is related to the patient's C. Difficile. Will seek a second opinion from the infectious disease specialist. 3. Anemia, possibly anemia of chronic disease. Will get anemic workup including peripheral smear. Iron studies appreciated. Will get B12, folic acid, retic count and peripheral smear. Transfused a total of 2 unit s packed red blood cells during this admission so far. 4. End stage renal disease, missing dialysis. Patient poorly compliant. Dialysis Sunday, Sunday, and Sunday. Nephrology, Dr. Acevedo, consulted. Appreciate Dr. Acevedo's assistance. 5. Type 2 diabetes. A1c is appreciated. Insulin as per protocol. Followup fingerstick and adjust as needed. 6. Hypertension. Continue Imdur, lisinopril, and Lopressor. Monitor blood pressure and adjust as needed. 7. Hypothyroidism. Continue Synthroid. 8. Diabetic neuropathy. Continue Neurontin. 9. Smoking. Counseling provided. Nicotine patch. 10. Poor compliance complicating care. 11. Deep vein thrombosis (DVT) prophylaxis. Heparin subcu. DISPOSITION: Pending clinical improvement. Further workup for underlying ascites. Infectious disease consultation. CT of the abdomen.
[2016-08-09] MEDS ORDERED: GASTROGRAFIN SOLUTION 30ML PO ONE (14:45)
[2016-08-09] MEDS: LACTOBACILLUS ACIDOPHILUS CAP (BACID) GT SCH ×2 (15:14→21:00)
[2016-08-09] MEDS ORDERED: GASTROGRAFIN SOLUTION 30ML (Q9963) PO ONE (15:15)
[2016-08-09] MEDS ORDERED: ISOVUE-370 76% 100ML VIAL (Q9967) As Ordered ONE (16:06)
--- NOTE | 2016-08-09 17:14 | REP ---
CT ABDOMEN AND PELVIS WITH AND WITHOUT CONTRAST: TECHNIQUE: Axial noncontrast images through the abdomen followed by contrast-enhanced images through the abdomen and pelvis using 100 mL Isovue 370 intravenous contrast material, with coronal and sagittal reformations. In visualized lung bases there is linear fibroatelectatic change more so on the left than on the right. Liver is enlarged with a length of approximately 22 cm. Density is heterogeneous but I do not see a discrete mass. Spleen is normal in size with no intrinsic abnormality. Adrenals and pancreas as well as kidneys appear essentially unremarkable. There is no hydronephrosis bilaterally. There are moderate atherosclerotic calcifications of the abdominal aorta without aneurysm. I see no adenopathy. No free air is seen. There is mild diffuse abdominal and pelvic ascites. Gallbladder is contracted. There is diffuse mesenteric edema. In the pelvis, there is a loop of ileum which may be diffusely thickened and narrowed. No pelvic mass is seen. IMPRESSION: Hepatomegaly. Heterogeneous density of the liver without focal mass. Diffuse mesenteric edema. Mild abdominal and pelvic ascites. Possible mucosal thickening and narrowing of a loop of ileum in the right inferior pelvis. No other definite abnormality is seen. Signed by Eusebio Marlow MD 08/10/2016 04:46 P
--- NOTE | 2016-08-09 19:51 | CR ---
DATE OF CONSULTATION: 08/09/2016 Asked to consult by Dr. Barahona for evaluation of C difficile colitis and abdominal pain with ascites. HISTORY OF PRESENT ILLNESS: Mrs. Trivedi is a 46-year-old female with a history of end-stage renal disease on hemodialysis from insulin-dependent diabetes. Diagnosed at the age of 21. The patient went to the emergency room at [facility] due to severe abdominal pain associated with nausea and vomiting. The patient stated the pain started about 10 days ago in the right upper and right lower quadrant that she described as sharp and constant. The pain was worsening, radiated to her back. It was worse with movement improved and she was lying still. This was associated with nausea and vomiting. The patient denied hematemesis. She also had diarrhea but that diarrhea she reports has been going on for 6 months even when she was in [place]. A stool for C diff was done in [place] and was negative and she was given Imodium. She reported having black stools which she felt was related to iron supplements. She denied any chest pain, palpitations. She stated she did have fevers in the past 10 days with some chills that were shaking. The patient has had some shortness of breath. She was noted in the emergency room to have a hemoglobin of 6.7, hematocrit of 23. CT of the abdomen and pelvis showed abdominal ascites with diffuse subcutaneous edema and anasarca and the patient was transferred to our hospital. EKG showed sinus rhythm. PAST MEDICAL HISTORY: Significant for insulin-dependent diabetes with diabetic retinopathy, nephropathy and neuropathy, type 2 diabetes, hypertension, hyperlipidemia, congestive heart failure. Echocardiogram done May 2015 showed an ejection fraction of 25-30%. She had a pericardial effusion in 2016 status post pericardiocentesis. According to Dr. Lopez's it was felt to be either uremic or viral in origin. At the same time she had a transudative left pleural effusion felt to be related to congestive heart failure and that is when she was started on dialysis, peripheral vascular disease, chronic anemia, peripheral neuropathy, hypothyroidism. PAST SURGICAL HISTORY: Cardiac catheterization March 2016. No stents placed. Hysterectomy 2016. Chest tube placement and pericardial centesis May [address] 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 She had dialysis through a right AV graft. ALLERGIES: Penicillin causing a rash and hives. HOME MEDICATIONS: - aspirin 81 mg daily - Lipitor 80 mg daily - ferrous sulfate 325 mg by mouth daily. - gabapentin 600 mg three times a day - Isordil 30 mg daily - Synthroid 100 mcg daily - lisinopril 5 mg daily - magnesium oxide 400 mg twice a day - metoprolol 12.5 mg by mouth twice a day - Renvela 800 mg with meals SOCIAL HISTORY: She is smoker, smokes five cigarettes a day. She has 30 pack year history of tobacco abuse. No alcohol or drug use. She lives with her father and her son. She had been to [place] to live with her sister because it is warmer there and she likes it there but things did not work out. REVIEW OF SYSTEMS: On review of systems she complains of being weak abdominal pain and nausea and vomiting as previously described. Diarrhea has improved. She has not had any today. She has no urinary output. She has low back pain. No joint pains. No rashes. PHYSICAL EXAMINATION: On physical exam she is a frail 46-year-old female, looks older than stated age in no acute distress. HEART: Normal S1-S2 with a systolic ejection murmur 2/6. LUNGS: Clear. No wheezes or rhonchi. ABDOMEN: Soft, mildly distended, nontender. Bowel sounds are present. No rebound or guarding. EXTREMITIES: No clubbing, cyanosis or edema. Right upper thigh has a graft for dialysis. Left upper arm has an old AV fistula with scars. SKIN: Without rashes. NEUROLOGIC: Alert oriented times three. Upper and lower extremity strength normal. Left eye blindness. LABORATORY DATA: White count was 8.2, hemoglobin 7.7, hematocrit 26, platelets 463, hemoglobin on admission was 6.8. Sodium 136, potassium 2.7, chloride 101, bicarb 26, BUN 35, creatinine 5, glucose 218, calcium 7.9, phosphorus 2.9, magnesium 1.9, GGT 32, albumin 2, CA antigen pending. Hepatitis A, B and C were negative. Fluid drawn from the right upper quadrant total enucleated cells 3,878 with 65% neutrophils, 6% lymphocytes, glucose 141, total protein 5.3, albumin 2. Stool for C diff was positive. Stool lactoferrin was negative. AFB smear and fungal smear and culture all pending. Gram stain had moderate white cells, few red cells, no organisms. Sputum culture pending. Abdominal ultrasound which was done the survey showed mild to moderate ascites predominately in the right upper quadrant. IMPRESSION: This is a 46-year-old female with chronic diarrhea for at least 6 months presumably C diff negative in the past 3-4 months but currently has positive C diff in spite of not being on any antibiotics. The patient has been started on by mouth vancomycin 250 mg four times a day. She also has ascites with new onset right upper quadrant pain, nausea and vomiting which are more concerning for another infectious process such as peritonitis, possibly secondary to an infected gallbladder or possibly bowel infection as it is mostly localized to the right upper quadrant and that makes the gallbladder more of a culprit as a cause of her localized ascites and spontaneous peritonitis, although she could also have spontaneous peritonitis and ascites from congestive heart failure. Cultures are still pending. The patient has been started on intravenous (IV) cefepime. PLAN: 1. Continue vancomycin 250 mg by mouth four times a day. 2. Continue cefepime 0.5 grams q 24 hours until results of culture. Agree on sending acid fast culture, fungal culture. Alpha-fetoprotein was also ordered to rule out malignancy. The patient is scheduled for CT of the abdomen pelvis with IV contrast and by mouth contrast and that will give us better information, the reason for her ascites.
[2016-08-09 20:18] VITALS: BP 122/60
[2016-08-09] MEDS: CEFEPIME HCL 0.5 GM in D5W MINI-BAG PLUS 50 ML IV SCH (20:58)
[2016-08-09] MEDS: ATORVASTATIN 20 MG TAB PO SCH (21:00)
[2016-08-09] MEDS: ACETAMINOPHEN TAB 650MG DOSE (2X325MG) PO PRN (21:01)
[2016-08-10 06:00] VITALS: BP 100/56
[2016-08-10] MEDS: LEVOTHYROXINE 0.1 MG TAB (100 MCG) PO SCH (06:10)
[2016-08-10] MEDS: SLF 3 ML SYR IV SCH ×3 (06:10→21:21)
[2016-08-10] MEDS: ACETAMINOPHEN TAB 650MG DOSE (2X325MG) PO PRN ×2 (06:11→21:22)
[2016-08-10 06:54] LABS: MEAN CORPUSCULAR HEMOGLOBIN 27.3 pg (27.0-33.0); MEAN CORPUSCULAR HGB CONC 31.7 g/dl (32.0-36.5); MEAN CORPUSCULAR VOLUME 86.2 fl (80.0-96.0); PLATELET COUNT, AUTOMATED 458 k/mm3 (150-450); REASON FOR REVIEW ANEMIA / RBC MORPH; RED CELL DISTRIBUTION WIDTH 15.6 % (11.5-14.5); RETIC HEMOGLOBIN CONTENT CHr 24.4 PG (24-36); RETICULOCYTE ABSOLUTE ADVIA212 30 x10(9)/L (17-77); WHITE BLOOD COUNT 7.2 K/mm3 (4.0-10.0)
[2016-08-10 07:09] LABS: ALBUMIN 2.1 GM/DL (3.2-5.2); ANION GAP 11 MEQ/L (8-16); BLOOD UREA NITROGEN 23 MG/DL (7-18); CALCIUM LEVEL 8.1 MG/DL (8.5-10.1); CARBON DIOXIDE LEVEL 25 MEQ/L (21-32); CHLORIDE LEVEL 98 MEQ/L (98-107); CREATININE FOR GFR 3.76 MG/DL (0.55-1.02); GLOMERULAR FILTRATION RATE 13.8 (>58); GLUCOSE, FASTING 206 MG/DL (70-105); MAGNESIUM LEVEL 1.7 MG/DL (1.8-2.4); PHOSPHORUS LEVEL 2.8 MG/DL (2.5-4.9); POTASSIUM SERUM 4.2 MEQ/L (3.5-5.1); SODIUM LEVEL 134 MEQ/L (136-145)
[2016-08-10] MEDS ORDERED: MAG SULF 1GM/100ML (MAG RUN) 1 GM in APPROPRIATE DILUENT 1 EA IV ONE (08:00)
[2016-08-10] MEDS: METOPROLOL TART 12.5 MG PER 1/2 TAB PO SCH ×2 (08:58→21:23)
[2016-08-10] MEDS: HumaLOG INSULIN (NovoLOG) PER UNIT SC SCH ×4 (08:59→21:00)
[2016-08-10] MEDS: LACTOBACILLUS ACIDOPHILUS CAP (BACID) GT SCH ×3 (09:00→21:21)
[2016-08-10] MEDS: NICOTINE 7 MG/24 HR TRANSDERMAL TD SCH (09:00)
[2016-08-10] MEDS: (RENVELA) SEVELAMER **CARBONate** 800 MG TAB PO SCH ×3 (09:00→17:29)
[2016-08-10] MEDS: GABAPENTIN 300 MG CAP PO SCH ×3 (09:00→21:21)
[2016-08-10] MEDS: FERROUS SULFATE 325MG TAB PO SCH (09:00)
[2016-08-10] MEDS: LISINOPRIL 5 MG TAB PO SCH (09:00)
[2016-08-10] MEDS: HEPARIN SOD (PORCINE) 5000 UNITS/ML VIAL SQ SCH ×2 (09:01→21:22)
[2016-08-10] MEDS: ISOSORBIDE MON. (IMDUR) 30 MG XR TAB PO SCH (09:01)
[2016-08-10] MEDS: VANCOMYCIN ORAL SOL 250MG/5ML ORAL SYRINGE PO SCH ×4 (09:02→21:22)
[2016-08-10 09:28] LABS: FOLATE 2.5 NG/ML (>5.4); VITAMIN B12 LEVEL 143 PG/ML (247-911)
--- NOTE | 2016-08-10 13:40 | IPN ---
DATE: 08/10/[address] his Dr. Alexander Ms. Trivedi is seen this morning at her bedside. She is quite anxious and restless. She wants to go out. She feels that she is quite restricted and her anxiety is increasing. She denies any dyspnea, chest pain, nausea or vomiting. On physical examination, temperature 98.6 degrees Fahrenheit, heart rate 78 per minute and respiratory rate 16 per minute. Blood pressure 122/60 mmHg and oxygen saturation 98% on room air. Head is atraumatic. Ears, nose and throat are unremarkable. Heart sounds are regular Lungs clear to auscultation. Abdomen is soft with moderate ascites. Bowel sounds are present. Extremities have no cyanosis or clubbing. Neurologically she is awake, alert and oriented times three. Skin has no rash or ulcers. Today's laboratories show WBC count 7.2, hemoglobin 9.9 and hematocrit 31.2. Platelets 458. Sodium 134 and potassium 4.2. BUN 23 and creatinine 3.76. Tumor marker AFB is still pending. Her peripheral smear did not show any evidence for malignancy. She has a normal cystic anemia of chronic disease. PROBLEMS: 1. End-stage renal disease. The patient was dialyzed yesterday. We will plan to dialyze her again tomorrow. Her volume status is well-compensated and electrolytes are within normal range. No emergent indication for dialysis today. 2. Anemia. She has improved following transfusion. Workup has been otherwise negative. We will start with Aranesp during hemodialysis. 3. Ascites. This is being worked up by hospitalist service. Etiology remains uncertain. 4. Clostridium (C) difficile colitis. The patient is currently being treated with oral vancomycin. Her diarrhea has already improved. 5. Anxiety and agitation. I have reassured the patient that she will be allowed to go outside with her family for 1 hour. I have also arranged TV service for her in the room.
[2016-08-10 14:00] VITALS: BP 140/70
[2016-08-10] MEDS: CYANOCOBALAMIN 500 MCG TAB PO SCH (14:31)
[2016-08-10] MEDS: FOLIC ACID 1 MG TAB PO SCH (14:31)
--- NOTE | 2016-08-10 19:26 | ECHO ---
DATE OF PROCEDURE: 08/10/2016 REFERRING PHYSICIAN: August Cordova MD INDICATION: Edema. HEIGHT: 160 cm WEIGHT: 62 kg DIMENSIONS: IVS: 1.1 LV: 4.2 LVPW: 1.0 LA: 3.9 Aorta: 2.8 FINDINGS: The study is of good technical quality. Left ventricle is of normal size and systolic function with estimated ejection fraction (EF) around 60-65%. I do not appreciate any segmental wall motion abnormalities. Right ventricle does not appear grossly enlarged. Both atria are approximately normal size. Aortic, mitral, tricuspid and pulmonic valves all appear reasonably normal. Small noncompressive pericardial effusion is noted. Inferior vena cava is normal size. Aortic root, aortic arch and visualized segment of abdominal aorta all appear normal. Doppler interrogation of aortic valve reveals no stenosis or insufficiency. There is mild mitral insufficiency and no mitral stenosis. There is mild tricuspid insufficiency. Calculated pulmonary artery pressure is on upper limits of normal values or possibly mildly elevated. Pulmonic valve is also mildly insufficient. Evaluation of diastolic function reveals grade 1 diastolic dysfunction (E prime velocity septal and lateral are 6.0 and 9.0 cm/s respectively). CONCLUSIONS: 1. Study is of acceptable technical quality. 2. Normal left ventricle (LV) size with normal LV systolic function and grade 1 diastolic dysfunction. 3. No hemodynamically significant valvular disease. 4. Normal central venous pressure and normal or mildly elevated pulmonary artery pressure. 5. Small pericardial effusion. COMMENT: Subacute bacterial endocarditis (SBE) prophylaxis is not recommended. MTDD
--- NOTE | 2016-08-10 19:46 | IPN ---
DATE: 08/10/2016 Patient seen and examined. Reported no significant abdominal pain. Denies any fevers, chills, chest pain, pressure or discomfort. Currently comfortable in no acute distress. VITAL SIGNS: T-max 100.1, T-current 98, pulse 78, respirations 16, blood pressure 140/70, pulse oximetry 98%on room air. LABORATORIES: WBC 7.2, hemoglobin and hematocrit 9.9/31.2, platelets 458. Chemistries: Sodium 134, potassium 4.2, chloride 98, bicarb 25, BUN 23, creatinine 3.76. PHYSICAL EXAMINATION: GENERAL: Patient alert, oriented times three in no acute distress. HEENT: Normocephalic, atraumatic. PULMONARY: Bilaterally clear to auscultation. No wheezing, rales or rhonchi. CARDIAC: Regular rate and rhythm. Normal S1 and S2. 2/6 systolic murmur. ABDOMEN: Soft, mildly distended. Positive fluid wave. Positive bowel sounds. No rebound. No guarding. EXTREMITIES: No edema bilateral lower extremities. ASSESSMENT/PLAN: This is a 46-year-old female patient with underlying medical history of type 2 diabetes, end stage renal disease on hemodialysis with newly developing ascites, poor compliance, anemia of chronic disease, chronic diarrhea admitted for missing dialysis and worsening abdominal distention and pain. 1. Abdominal distention and pain with worsening ascites, possibly secondary to fluid overload versus hepatic etiology versus pancreatic. Ascites fluid has been appreciated. Unfortunately, none of the fluids was sent for cytology with the next paracentesis we will attempt to give cytology whether done as inpatient or outpatient. 2. CT of the abdomen with pancreatic protocol with contrast was appreciated with ascites and no other findings and hepatomegaly. Follow up CA and alpha feta protein. Hepatitis panel negative. Ultrasound of right upper quadrant appreciated. Fluid suggestive of SBP. Patient started on cefepime. Infectious disease, Dr. Rand has been consulted. We will get liver bioposies. Case discussed with gastroeneterology, Dr. Stoddard. At some point down the road, patient might need EGD colonoscopy as outpatient. 3. Diarrhea with C. difficile colitis. Patient was started on vancomycin with improvement. Bacid has been added. Infectious disease, Dr. Rand has been consulted. 4. Anemia, possibly anemia of chronic disease. Anemia workup appreciated. Supplement B12 and folic acid. Transfuse 2 units packed red blood cells total so far. 5. End stage renal disease, missing dialysis. Patient poorly compliant. Dialysis Sunday, Sunday, and Sunday. Nephrology, Dr. Acevedo, consulted. Appreciate Dr. Acevedo's assistance. 6. Type 2 diabetes. A1c is appreciated. Insulin as per protocol. Followup fingerstick and adjust as needed. 7. Hypertension. Imdur, lisinopril, and Lopressor. Monitor blood pressure and adjust as needed. 8. Hypothyroidism. Continue Synthroid. 9. Diabetic neuropathy. Continue Neurontin. 10. Smoking. Counseling provided. Nicotine patch. 11. Poor compliance complicating care. 12. Deep vein thrombosis (DVT) prophylaxis. Heparin subcu. DISPOSITION: Pending liver biopsy. Clinical improvement. Final infectious disease recommendations. Case discussed with Dr. Streeter. Patient will need outpatient follow up for EGD colonoscopy.
[2016-08-10] MEDS: CEFEPIME HCL 0.5 GM in D5W MINI-BAG PLUS 50 ML IV SCH (21:19)
[2016-08-10] MEDS: ATORVASTATIN 20 MG TAB PO SCH (21:22)
[2016-08-10 22:00] VITALS: BP 140/62
[2016-08-11 06:00] VITALS: BP 136/66
[2016-08-11] MEDS: VANCOMYCIN ORAL SOL 250MG/5ML ORAL SYRINGE PO SCH ×4 (06:25→21:35)
[2016-08-11] MEDS: CYANOCOBALAMIN 500 MCG TAB PO SCH (06:26)
[2016-08-11] MEDS: NICOTINE 7 MG/24 HR TRANSDERMAL TD SCH (06:26)
[2016-08-11] MEDS: LACTOBACILLUS ACIDOPHILUS CAP (BACID) GT SCH ×3 (06:27→21:37)
[2016-08-11] MEDS: FOLIC ACID 1 MG TAB PO SCH (06:27)
[2016-08-11] MEDS: GABAPENTIN 300 MG CAP PO SCH ×3 (06:27→21:37)
[2016-08-11] MEDS: FERROUS SULFATE 325MG TAB PO SCH (06:28)
[2016-08-11] MEDS: ISOSORBIDE MON. (IMDUR) 30 MG XR TAB PO SCH (06:28)
[2016-08-11] MEDS: LISINOPRIL 5 MG TAB PO SCH (06:28)
[2016-08-11] MEDS: LEVOTHYROXINE 0.1 MG TAB (100 MCG) PO SCH (06:28)
[2016-08-11] MEDS: (RENVELA) SEVELAMER **CARBONate** 800 MG TAB PO SCH ×3 (06:28→17:36)
[2016-08-11] MEDS: METOPROLOL TART 12.5 MG PER 1/2 TAB PO SCH ×2 (06:29→21:37)
[2016-08-11] MEDS: SLF 3 ML SYR IV SCH ×3 (06:30→21:37)
[2016-08-11 06:55] LABS: MEAN CORPUSCULAR HEMOGLOBIN 27.4 pg (27.0-33.0); MEAN CORPUSCULAR HGB CONC 31.7 g/dl (32.0-36.5); MEAN CORPUSCULAR VOLUME 86.4 fl (80.0-96.0); RED CELL DISTRIBUTION WIDTH 15.5 % (11.5-14.5); WHITE BLOOD COUNT 8.7 K/mm3 (4.0-10.0)
[2016-08-11 07:11] LABS: ALBUMIN 2.1 GM/DL (3.2-5.2); CALCIUM LEVEL 8.8 MG/DL (8.5-10.1); CREATININE FOR GFR 5.25 MG/DL (0.55-1.02); GLOMERULAR FILTRATION RATE 9.4 (>58); MAGNESIUM LEVEL 1.9 MG/DL (1.8-2.4); POTASSIUM SERUM 4.3 MEQ/L (3.5-5.1)
[2016-08-11] MEDS: HEPARIN SOD (PORCINE) 5000 UNITS/ML VIAL SQ SCH ×2 (08:38→21:36)
[2016-08-11] MEDS: HumaLOG INSULIN (NovoLOG) PER UNIT SC SCH ×4 (08:38→20:05)
[2016-08-11 11:19] LABS: CARCINOEMBRYONIC ANTIGEN 0.6 NG/ML (<2.5)
[2016-08-11] MEDS ORDERED: HEPARIN 1,000 UNITS/ML 10ML VIAL (FOR RADIOLOGY& DIALYSIS ONLY) IV ONE (12:00)
[2016-08-11] MEDS ORDERED: VANC250C2 PO (13:43)
--- NOTE | 2016-08-11 15:39 | IPN ---
DATE: 08/11/2016 Subha seems to be doing much better. She denies having any fever or chills, although she has had low-grade temperatures of 100.4 but not in the past 24 hours. She states her diarrhea has resolved today, but yesterday she had nine bowel movements. This could have been related to the oral contrast that she had for the CT abdomen. She denies any cough or shortness of breath. No nausea, vomiting, or abdominal pain. LABORATORY DATA: White count is 8.7, hemoglobin 9.6, hematocrit 30.2, platelets 473. Sodium 132, potassium 4.3, chloride 97, bicarbonate 25, BUN 30, creatinine 5.25, glucose 156, calcium 8.8, phosphorus 3, magnesium 1.9, albumin 2.1, vitamin B12 is 143, folate 2.5, CA antigen is 0.6. Tumor alpha-fetoprotein marker less than 1.3. Serology hepatitis A, B and C were negative. Stool for C. difficile was positive but lactoferrin negative. Ascites IV fluid culture is negative. PHYSICAL EXAMINATION: On physical examination, temperature is 97.4, pulse 76, respirations 18, blood pressure 136/66, oxygen saturation 97% on room air. HEART: Normal S1, S2 with a systolic ejection murmur of 1/6. LUNGS: Clear. No wheezes, rales, or rhonchi. ABDOMEN: Mildly distended, soft, nontender. EXTREMITIES: With no edema. IMPRESSION: 1. Clostridium (C) difficile colitis, on oral vancomycin and diarrhea has improved, although it was worse yesterday probably from contrast. 2. Ascites with abnormal pleocytosis, although bacterial cultures were negative. Acid-fast bacillus (AFB) and fungal are still pending. Antibiotics will be discontinued. Workup for malignancy included alpha-fetoprotein, carcinoembryonic antigen (CEA) and these were negative. Liver is quite enlarged at 22 cm. She is scheduled for a liver biopsy. 3. End-stage renal disease with anemia of chronic disease, vitamin B12 and folate deficiency as well. PLAN: The patient will be discharged home tomorrow on oral vancomycin 125 mg by mouth four times a day for a total of 14 days starting today as the patient was on broad-spectrum antibiotic with cefepime. The patient was encouraged to take probiotics one tablet twice a day. Further workup for hepatomegaly, ascites will be done by gastroenterology (GI) as an outpatient and Dr. Reynolds will be doing a liver biopsy Sunday morning. If ascites recurs, the patient will need to have paracentesis and fluid needs to be sent for cytology.
[2016-08-11 16:00] VITALS: BP 157/72
--- NOTE | 2016-08-11 16:35 | IPN ---
DATE: 08/11/2016 Ms. Trivedi is seen this morning on her bedside in hemodialysis. She has been feeling much better and reports that her abdominal pain and diarrhea has improved. She wants to go home. She denies any fever or chills. PHYSICAL EXAMINATION: Temperature 97.4 degrees Fahrenheit, heart rate 76 per minute and respiratory rate 18 per minute. Blood pressure 140/62 mmHg and oxygen saturation 97% on room air. Head is atraumatic. Neck is supple and without jugular venous distention (JVD) or thyroid enlargement. Ears, nose and throat are unremarkable. Heart sounds regular and lungs clear to auscultation. Abdomen is soft with moderate amount of ascites. Bowel sounds present. There is no tenderness. Extremities have no cyanosis or clubbing. Right thigh hemodialysis graft is patent. Neurologically, she is awake, alert and oriented times three. Today's labs show WBC count 8.7, hemoglobin 9.6 and hematocrit 30.2. Sodium 132 and potassium 4.3. BUN 30 and creatinine 5.25. PROBLEMS: 1. End-stage renal disease. The patient is being dialyzed today, and she is tolerating her dialysis treatment very well. Her volume status is well compensated. 2. Hyponatremia. This is mild and related to end-stage renal disease. It will be corrected with hemodialysis today. No other intervention is indicated. 3. Ascites. Etiology remains uncertain. Her tumor marker AFP has just come back, less than 1.3. Carcinoembryonic antigen was also normal at 0.6. Dr. Barahona is considering plan for kidney biopsy. I am not sure if the patient will stay here in the hospital that long. 4. Anemia. Anemia has improved following transfusion. She will receive Aranesp during hemodialysis. Last dose was given just on Sunday. 5. Hypertension. Blood pressure is very well controlled on current medications. 6. Diabetes. In the hospital, her diabetes has been well controlled. At home, unfortunately, she has been very noncompliant and was not taking any medications. This will need to be addressed further with her and her primary physician. DISPOSITION: Patient wishes to go home over the weekend. I will defer a final decision to hospitalist service. I have encouraged the patient to follow the physician's direction and advice.
[2016-08-11 20:04] VITALS: BP 132/66
[2016-08-11] MEDS: ATORVASTATIN 20 MG TAB PO SCH (21:37)
[2016-08-11] MEDS: ACETAMINOPHEN TAB 650MG DOSE (2X325MG) PO PRN (21:38)
[2016-08-12] MEDS: ONDANSETRON 4MG/2ML VIAL (J2405) IV PRN (00:08)
[2016-08-12] MEDS: SLF 3 ML SYR IV SCH (00:10)
[2016-08-12 06:00] VITALS: BP 118/60
[2016-08-12 06:14] LABS: MEAN CORPUSCULAR HEMOGLOBIN 25.8 pg (27.0-33.0); MEAN CORPUSCULAR HGB CONC 29.9 g/dl (32.0-36.5); MEAN CORPUSCULAR VOLUME 86.4 fl (80.0-96.0); RED CELL DISTRIBUTION WIDTH 15.5 % (11.5-14.5); WHITE BLOOD COUNT 10.3 K/mm3 (4.0-10.0)
[2016-08-12 06:27] LABS: ALBUMIN 1.9 GM/DL (3.2-5.2); CALCIUM LEVEL 8.1 MG/DL (8.5-10.1); CREATININE FOR GFR 3.57 MG/DL (0.55-1.02); GLOMERULAR FILTRATION RATE 14.7 (>58); MAGNESIUM LEVEL 1.9 MG/DL (1.8-2.4); PHOSPHORUS LEVEL 2.8 MG/DL (2.5-4.9); POTASSIUM SERUM 3.9 MEQ/L (3.5-5.1)
[2016-08-12] MEDS: LEVOTHYROXINE 0.1 MG TAB (100 MCG) PO SCH (06:37)
[2016-08-12] MEDS: FOLIC ACID 1 MG TAB PO SCH (08:32)
[2016-08-12] MEDS: GABAPENTIN 300 MG CAP PO SCH (08:32)
[2016-08-12] MEDS: CYANOCOBALAMIN 500 MCG TAB PO SCH (08:32)
[2016-08-12] MEDS: LACTOBACILLUS ACIDOPHILUS CAP (BACID) GT SCH (08:32)
[2016-08-12] MEDS: FERROUS SULFATE 325MG TAB PO SCH (08:32)
[2016-08-12] MEDS: (RENVELA) SEVELAMER **CARBONate** 800 MG TAB PO SCH ×2 (08:32→12:38)
[2016-08-12] MEDS: HumaLOG INSULIN (NovoLOG) PER UNIT SC SCH ×2 (08:33→12:39)
[2016-08-12] MEDS: HEPARIN SOD (PORCINE) 5000 UNITS/ML VIAL SQ SCH (08:33)
[2016-08-12] MEDS: METOPROLOL TART 12.5 MG PER 1/2 TAB PO SCH (08:34)
[2016-08-12] MEDS: ISOSORBIDE MON. (IMDUR) 30 MG XR TAB PO SCH (08:34)
[2016-08-12] MEDS: VANCOMYCIN ORAL SOL 250MG/5ML ORAL SYRINGE PO SCH ×2 (08:34→12:38)
[2016-08-12 08:35] VITALS: BP 118/60
[2016-08-12] MEDS: NICOTINE 7 MG/24 HR TRANSDERMAL TD SCH (08:35)
[2016-08-12] MEDS: LISINOPRIL 5 MG TAB PO SCH (08:35)
[2016-08-12] MEDS ORDERED: RISATAB3 PO (11:47)
[2016-08-12] MEDS ORDERED: FOLI1TAB2 PO (11:47)
[2016-08-12] MEDS ORDERED: VITA500T53 PO (11:47)
[2016-08-12] MEDS ORDERED: ASPI1TAB PO (12:57)
--- NOTE | 2016-08-12 15:05 | IPN ---
DATE: 08/11/2016 The patient reported diarrhea resolved. Denies any chest pain, pressure or discomfort. Denies any chest pain, pressure or discomfort. Denies any fever or chills, abdominal pain. Abdominal distention has not been returning. VITAL SIGNS: Temperature 99.8, pulse 87, respirations 16, blood pressure 157/72, pulse oximetry 96% on room air. LABORATORY: WBC 8.7, hemoglobin and hematocrit 9.6/30.2. Platelets 473. Chemistry: Sodium 132, potassium 4.3, chloride 97, bicarbonate 25, BUN 30, creatinine 5.25. Tumor markers have been negative. PHYSICAL EXAMINATION: GENERAL: The patient alert and oriented times three. In no acute distress. HEENT: Normocephalic, atraumatic. PULMONARY: Bilateral clear to auscultation. No wheeze, rales or rhonchi. CARDIAC: Regular rate and rhythm. Normal S1, S2. 2 out of 6 systolic murmur. ABDOMEN: Soft, nontender, mildly distended. Ascites much improved. Positive bowel sounds. EXTREMITIES: No edema bilateral lower extremities. ASSESSMENT AND PLAN: This is a 46-year-old female patient with underlying medical history of type 2 diabetes, end-stage renal disease, on hemodialysis, with newly developing ascites, poor compliance, anemia of chronic disease, chronic diarrhea admitted for missing dialysis and worsening abdominal pain, distention and diarrhea. 1. Abdominal pain and distention with worsening ascites. Possibly secondary to fluid overload versus hepatic etiology versus pancreatic. Ascites fluid has been appreciated. Unfortunately there is not enough fluid for cytology. Will need to set up for repeat paracentesis as outpatient for cytology. Currently abdominal pain has resolved. CT scan of the abdomen with pancreatic protocol is appreciated. With no specific finding other than hepatomegaly. Carcinoembryonic antigen and alpha fetoprotein has been negative. Hepatitis panel has been negative. Right upper quadrant ultrasound has been appreciated. Ascites fluid for amylase has been negative. Fluid suggestive of possible HIGH HEEL BUILDER. The patient received cefepime. Currently infectious disease has been consulted. Antibiotic has been discontinued. Culture has been negative, was on ascites fluid. Initially scheduled for liver biopsy on Sunday, but the patient insists to be discharged over the weekend. Subsequently, arrangements for liver biopsy has been arranged as outpatient. Case discussed with gastroenterology, Dr. Streeter who agrees with current plan and wanted to arrange for outpatient esophagogastroduodenoscopy (EGD) and colonoscopy, and further workup for ascites. 2. Diarrhea with C. difficile colitis. The patient treated with vancomycin. Bacid has been added. Infectious disease, Dr. Rand has been consulted. 3. Possible anemia of chronic disease. Workup appreciated. Supplement B12, folic acid. Transfuse 2 units packed red blood cells (RBC). 4. End-stage renal disease, missing dialysis. Poorly compliant. Dialysis Sunday, Sunday and Sunday. Nephrology, Dr. Acevedo has been consulted. Appreciate Dr. Acevedo's assistance. 5. Type 2 diabetes. A1c appreciated. Insulin as per protocol. Followup fingersticks. 6. Hypertension. Imdur, lisinopril, Lopressor. Monitor blood pressure and address as needed. 7. Hypothyroidism. Continue Synthroid. 8. Diabetic neuropathy. Continue Neurontin. 9. Smoking. Nicotine patch. Counseling provided. 10. Poor compliance complicating care. 11. Deep venous thrombosis (DVT) prophylaxis, heparin subcutaneous. DISPOSITION PLANNING: Likely discharge tomorrow. Pending clinical improvement. Case discussed with Dr. Rand and Dr. Streeter. Referral for gastroenterology has been made for outpatient EGD, colonoscopy. Need outpatient paracentesis for cytology as well as liver biopsy. The patient was informed. The patient insists on being discharged over the weekend. Is worried that she will be responsible for following up and getting further workup, then patient agreed that she will get everything done and insists on being discharged. Will aim for patient discharge on Sunday.
--- NOTE | 2016-08-13 08:59 | IPN ---
DATE: 08/12/2016 SUBJECTIVE: The patient was seen and examined at the bedside today in the morning. She was dialyzed yesterday. She tolerated the hemodialysis procedure well yesterday. The patient is asymptomatic at this time and she wants to go home today. REVIEW OF SYSTEMS: The patient denies any fevers, chills, rigors, headache, nausea, vomiting, chest pain, shortness of breath, pain in abdomen, constipation or diarrhea. The rest of the review of systems is negative. OBJECTIVE: VITAL SIGNS: Temperature 98.6 degrees Fahrenheit. Blood pressure 118/60. Pulse is 74. Respiratory rate 18. Saturating 92% on room air. INTAKE AND OUTPUT: Urine output is not recorded. The patient got hemodialysis done yesterday. Ultrafiltration with hemodialysis was 2 liters. Weight on the bed scale is 65.8 kg today. PHYSICAL EXAMINATION: GENERAL: Patient is awake, alert, and oriented times three, sitting in the bed in no apparent distress. HEAD AND NECK EXAM: Extraocular muscles intact. Pupils equally round and reactive to light. Neck is supple. There is no jugular venous distention ( JVD). CARDIOVASCULAR: S1, S2, regular rate. No murmur, rub or gallop. RESPIRATORY: Chest is clear to auscultation bilaterally. Bilateral equal air entry. No rales or rhonchi. ABDOMEN: Soft. Positive bowel sounds. Nontender. Mild amount of ascites EXTREMITIES: No clubbing or cyanosis. Pulses are 2+. The patient has a right thigh AV graft with positive thrill and bruit. CENTRAL NERVOUS SYSTEM (ELECTROMEDICAL SERVICE ENGINEER): No focal neurological deficit. Power is 5/5 in all extremities. LAB REVIEW: CBC showed WBC of 10.3, hemoglobin 8.5, and platelets of 471. BMP showed sodium 133, potassium 3.9, chloride 97, bicarbonate 30, BUN 23, creatinine 3.5, calcium 8.1, phosphorus 2.8, magnesium 1.9, albumin 1.9. CURRENT MEDICATIONS: Patient's medications are all reviewed by me. There is no change in the medications today as compared with yesterday. The patient continues to be on oral vancomycin for Clostridium difficile colitis. ASSESSMENT: 46-year-old female with past medical history of end stage renal disease on hemodialysis this admission with C difficile colitis and ascites. PLAN: 1. End stage renal disease. The patient's regular days of dialysis are Sunday, Sunday and Sunday. He was dialyzed yesterday. Next hemodialysis session will be on 08/14/2016. 2. Ascites. The patient's ultrasound did not show any masses. The patient is pending a kidney biopsy, which should be done as outpatient on Sunday. We shall hold the heparin after kidney biopsy on Sunday and patient will be dialyzed after kidney biopsy as outpatient. 3. Anemia. The patient is status post packed red blood cells (PRBC) transfusion. Hemoglobin is still suboptimal. The rest of the anemia management will be as per outpatient. She will be given Epogen. 4. Hyponatremia. Hyponatremia is secondary to renal failure, volume overload and ascites. Sodium is 133. It is expected to improve with further hemodialysis and ultrafiltration. 5. Hypertension. Blood pressure is acceptable at this time. Continue current antihypertensive regimen. 6. Clostridium difficile colitis. The patient is currently on vancomycin. Her diarrhea is significantly better. She is supposed to get a total of 14 days of vancomycin. 7. Discharge planning. It is okay to discharge the patient from a nephrology standpoint. The patient will be dialyzed as outpatient on Sunday. Plan of care was discussed with the hospitalist team, Dr. Lory Barahona.
--- NOTE | 2016-08-13 19:21 | DSES ---
DATE OF ADMISSION: 08/07/2016 DATE OF DISCHARGE: 08/12/2016 PRIMARY CARE PROVIDER: Dr. Jonathan Leary, in [place]. DOCTOR OF NATUROPATHIC MEDICINE: Dr. Acevedo. INFECTIOUS DISEASE SPECIALIST: Dr. Rand. CLINICAL WRITER: Dr. Streeter. FINAL DIAGNOSES: 1. Abdominal pain and distention with ascites. 2. Diarrhea with Clostridium (C) difficile colitis. 3. Symptomatic anemia requiring transfusions. 4. End-stage renal disease on hemodialysis, poor compliance. 5. Type 2 diabetes. 6. Hypertension. 7. Hypothyroidism. 8. Diabetic neuropathy. 9. Smoking. HISTORY OF PRESENT ILLNESS: This is a 46-year-old female patient with underlying medical history of end-stage renal disease on hemodialysis Sunday, Sunday, Sunday, type 2 diabetes, chronic anemia, transferred from [facility] due to worsening abdominal pain located in the right upper and lower quadrant, described as sharp, constant, occasionally would radiate to her back. It was also worse with movement, improved when lying still. Denied any similar episodes in the past. She actually attempted to take some Tylenol at home without significant relief of symptoms associated with nausea and vomiting. Also had diarrhea. Denied any blood or melena. Denied any hematemesis. Patient reported decrease in appetite. Also reported missing dialysis due to her generalized weakness. Denied any chest pain, pressure, discomfort, fevers, chills, chest pain. HOSPITAL COURSE: Patient was admitted to the hospital. Nephrology was consulted for dialysis. Right quadrant ultrasound was done as well as a paracentesis was also done. Fluid analysis was done. Unfortunately, not enough fluids were taken for cytology. CT of the abdomen and pelvis with contrast and pancreatic protocol was also done. Patient has history of hysterectomy with oophorectomy. CT was benign other than ascites and hepatosplenomegaly. Tumor marker was negative as well. Hepatitis panel was negative. Patient was transfused two units packed red blood cells. Gastrointestinal (GI) study showed Clostridium (C) difficile. Patient was treated for C. Difficile initially. Also treated with cefepime for possible spontaneous bacterial peritonitis. Infectious disease was consulted. Ascites fluids were negative culture. Subsequently, antibiotics discontinued by infectious disease. Vancomycin and Bacid were continued. Case was discussed with Dr. Jimmie Streeter, gastroenterology. Recommended outpatient followup and also liver biopsy. Referral was made for outpatient GI. Schedule was made for patient to have a liver biopsy. Transjugular liver biopsy by Dr. Reynolds on Sunday. Unfortunately, patient does not want to stay in the hospital until then, and subsequently, outpatient arrangements were made and patient agreed to that she will be responsible for followup. Counseling was provided. Patient has a history of poor compliance. Case was discussed with nephrology covering, Dr. Mcdaniel, who agreed with the current plan. Patient's blood pressure medication was continued. Nicotine patch was provided and counseling was provided to the patient, as well. Patient currently comfortable, tolerating oral with abdominal distention much improved after paracentesis. No significant pain and afebrile. Ready for discharge for further care as an outpatient. Temperature 98.6, pulse 74, respirations 18, blood pressure 119/60, pulse oximetry 92% on room air. LABORATORY: WBC 10.3, hemoglobin and hematocrit (H H) 8.5/28.6, platelets 471. Sodium 132, potassium 3.9, chloride 97, bicarbonate 30, BUN 23, creatinine 3.57. DISCHARGE MEDICATIONS: - B12 2000 mg by mouth daily - folic acid 1 mg by mouth daily - probiotics 1 tablet by mouth three times a day - vancomycin 250 mg by mouth four times a day - Lipitor 40 mg by mouth nightly - ferrous sulfate 235 mg by mouth daily - gabapentin 600 mg by mouth three times a day - isosorbide mononitrate 30 mg by mouth daily - Synthroid 100 mcg by mouth daily - lisinopril 5 mg by mouth daily - magnesium oxide 400 mg by mouth twice a day - metoprolol 12.5 mg by mouth twice a day - Renvela 100 mg by mouth with meals - aspirin on hold until liver biopsy DISCHARGE INSTRUCTIONS: Patient is instructed to follow up with nephrology. Refer to dialysis Sunday, Sunday and Sunday in the afternoon. Schedule in August for patient to have Sunday morning early, 8 a.m. for transjugular liver biopsy. Outpatient followup with gastroenterology, Dr. Jimmie Streeter for further evaluation of ascites and also for possible arrangement for paracentesis for cytology. Follow up with primary care provider in seven days. Return to the hospital if symptoms worsen. Continue vancomycin.
== END 2016-08-12 13:12 | disposition home or self-care (01) | DRG 264 ==
LOC: M ICU 14:11 → M MSPAV 20:56
PROVIDERS: ADMIT Internal Medicine; ATTEND Internal Medicine Nephrology
PROC: 30253N1 (ICD-10-PCS; 2016-08-07)
PROC: 5A1D60Z (ICD-10-PCS; principal; 2016-08-08)
PROC: 0W9G3ZX Drainage of Peritoneal Cavity, Percutaneous Approach, Diagnostic (ICD-10-PCS; 2016-08-08)
PROC: 30253J1 (ICD-10-PCS; 2016-08-08)
DX: R18.8 Other ascites (principal); I13.2 Hypertensive heart and chronic kidney disease with heart failure and with stage 5 chronic kidney disease, or end stage renal disease; N18.6 End stage renal disease; E11.42 Type 2 diabetes mellitus with diabetic polyneuropathy; A04.7 Enterocolitis due to Clostridium difficile; N25.81 Secondary hyperparathyroidism of renal origin; E11.51 Type 2 diabetes mellitus with diabetic peripheral angiopathy without gangrene; R16.2 Hepatomegaly with splenomegaly, not elsewhere classified; I50.22 Chronic systolic (congestive) heart failure; K74.60 Unspecified cirrhosis of liver; E11.65 Type 2 diabetes mellitus with hyperglycemia; E11.319 Type 2 diabetes mellitus with unspecified diabetic retinopathy without macular edema; D63.1 Anemia in chronic kidney disease; F17.210 Nicotine dependence, cigarettes, uncomplicated; H54.42 Blindness, left eye, normal vision right eye; E03.9 Hypothyroidism, unspecified; Z99.2 Dependence on renal dialysis; Z88.0 Allergy status to penicillin; Z79.82 Long term (current) use of aspirin; Z79.899 Other long term (current) drug therapy; Z91.15 Patient's noncompliance with renal dialysis; Z79.4 Long term (current) use of insulin; F41.9 Anxiety disorder, unspecified; Z91.14 Patient's other noncompliance with medication regimen

== ENCOUNTER → 2016-08-14 | Outpatient (CLI) | payer OTHER ==
[~2016-08-14] MED LIST changes: +FERR325T PO; +FOLI1TAB2 PO; +ISOVUE-300 61% 50ML VIAL (Q9967) As Ordered ONE; +LIDOCAINE 2% MDV 20 ML VIAL As Ordered ONE; +RISATAB3 PO; +SODIUM BICARBONATE 8.4% INJ 50MEQ 50 ML VIAL As Ordered ONE; +SYNT100T PO; +VANC250C2 PO; +VITA500T53 PO
--- NOTE | 2016-08-14 15:44 | REPKIM ---
CLINICAL HISTORY: End stage renal disease on hemodialysis and new onset of ascites. The referring service has asked a transjugular liver biopsy and hemodynamic pressure measurements. PROCEDURE: 1. Transjugular liver biopsy 2. Hepatic venogram with hemodynamic assessment INTERVENTIONALIST: Garrison Reynolds MD CONSENT: The risks, benefits and alternatives to the procedure were explained to the patient and informed written consent was obtained. MEDICATIONS: Local Lidocaine 2% CONTRAST: 9 mL Isovue 300 EBL: 5 mL FLUORO TIME: 3.9 minutes DESCRIPTION OF PROCEDURE: The patient was brought to the interventional radiology suite where a timeout procedure was performed. The patient was placed in the supine position. The right neck was prepped and draped in the usual sterile fashion. After local anesthesia with 2% Lidocaine, a 5 Palestinian micropuncture set was used to gain access to the right IJ vein under direct real -time combined sonographic and fluoroscopic guidance. The tract was dilated to accommodate a 9 Palestinian long sheath. Pressure was measured in the right atrium. A catheter was advanced into the right hepatic vein where pressures were measured in wedged and free positions and wedged and free hepatic venograms were performed. The catheter was then exchanged for the biopsy sheath, through which the biopsy device was advanced and used to obtain four 19 gauge core biopsy specimens. The specimens were submitted in formalin for pathologic evaluation. Cannula and vascular sheath were removed. Hemostasis achieved by applying manual pressure over the puncture site. The patient tolerated the procedure well with no immediate complications. This procedure was performed using ultrasound and fluoroscopy. Dr. Reynolds was present. DESCRIPTION OF FINDINGS: 1. The right IJ vein is patent and compressible. 2. The right hepatic vein is patent with no evidence of stenosis. 3. Wedged hepatic venogram does opacify portal vein branches. 4. Four 19 gauge core biopsy specimens were successfully obtained. 5. Pressure measurements: Right atrium 9 mm Hg. Free hepatic vein 10 mm Hg. Wedged hepatic vein 12 mm Hg. Corrected sinusoidal pressure 2 mm Hg. IMPRESSION: 1. Successful transjugular liver biopsy. 2. The right hepatic vein is patent. 3. Wedged hepatic venogram does opacify portal vein branches. 4. Hemodynamic assessment yields a corrected sinusoidal pressure of 2 mm Hg which is within normal limits. There is no evidence of portal hypertension. 5. Four 19-gauge core biopsy specimens obtained and submitted to Pathology Department. cc: MD Jimmie Prakash MD MTDD
== END | disposition home or self-care (01) ==
LOC: M IRPRO 06:52
PROVIDERS: ATTEND Hospitalist
DX: R18.8 Other ascites (principal); R10.9 Unspecified abdominal pain; N18.6 End stage renal disease; Z99.2 Dependence on renal dialysis
CPT/HCPCS: 36011; 37200; 75970; 88305; 88313; C1769; C1887; C1894; Q9967

== ENCOUNTER → 2017-08-16 | Outpatient (CLI) | payer OTHER | LOC: M EKG 12:55 | DX: I49.8 Other specified cardiac arrhythmias (principal) | CPT/HCPCS: 93005 ==

== ENCOUNTER 2017-08-24 07:45 | Day surgery (SDC) | payer OTHER ==
[2017-08-24 08:35] LABS: POTASSIUM SERUM 4.7 MEQ/L (3.5-5.1)
[2017-08-24] MEDS: NS 1,000 ML IV (09:26)
[2017-08-24] MEDS: VANCOMYCIN HCL 1,000 MG, VIAL MATE ADAPTER 1 EACH in D5W 250 ML IV (09:28)
[2017-08-24 09:44] LABS: BEDSIDE GLUCOSE 154 MG/DL (70-105)
[2017-08-24] MEDS ORDERED: fentaNYL 100 MCG/2 ML INJECTION (J3010) As Ordered (10:03)
[2017-08-24] MEDS ORDERED: LIDOCAINE 2% INJ 100 MG/5 ML SDV (FOR ANES.) As Ordered (10:03)
[2017-08-24] MEDS ORDERED: PROPOFOL 200 MG/20 ML VIAL As Ordered (10:03)
[2017-08-24] MEDS ORDERED: MIDAZOLAM INJ 2 MG/2 ML VIAL (J2250) As Ordered (10:04)
[2017-08-24 10:22] LABS: BEDSIDE GLUCOSE 177 MG/DL (70-105)
[2017-08-24] MEDS: LIDOCAINE 1% SDV INJ 30 ML VIAL As Ordered (11:31)
[2017-08-24] MEDS: HEPARIN SOD (PORCINE) 5000 UNITS/ML VIAL As Ordered ×2 (11:31→11:32)
[2017-08-24 12:18] LABS: BEDSIDE GLUCOSE 149 MG/DL (70-105)
[2017-08-24] MEDS ORDERED: ACETAMINOPHEN TAB 650MG DOSE (2X325MG) As Ordered (12:41)
[2017-08-24] MEDS: ACETAMINOPHEN TAB 650MG DOSE (2X325MG) PO (12:44)
[2017-08-24] MEDS ORDERED: NORCO, ANEXSIA 5/325MG TABLET (HYDROcodone/ACETAMINOPHEN) PO (12:45)
[2017-08-25] MEDS ORDERED: BUPIVACAINE HCL 0.25% 30 ML VIAL As Ordered (13:12)
== END 2017-08-24 13:50 | disposition home or self-care (01) ==
LOC: M SDC 07:45
DX: N18.6 End stage renal disease (principal); I25.10 Atherosclerotic heart disease of native coronary artery without angina pectoris; I12.0 Hypertensive chronic kidney disease with stage 5 chronic kidney disease or end stage renal disease; M54.42 Lumbago with sciatica, left side; F17.210 Nicotine dependence, cigarettes, uncomplicated; Z88.0 Allergy status to penicillin; F41.9 Anxiety disorder, unspecified; F32.9 Major depressive disorder, single episode, unspecified; Z79.899 Other long term (current) drug therapy
CPT/HCPCS: 49421

== ENCOUNTER 2018-09-11 12:58 | Inpatient (IN) | payer OTHER ==
[~2018-09-11] VITALS: Ht 160 cm; Wt 69.7 kg
[~2018-09-11 12:58] MED LIST changes: -ASPI1TAB PO; +ASPI81TA26 PO; -ATOR40TA PO; +ATOR40TA75 PO; +AURY1TAB PO; +BASA100I SC; +FERR1TAB8 PO; -FERR325T PO; +FOLI1TAB11 PO; -FOLI1TAB2 PO; +GABA-1171 PO; -GABA-279 PO; -GABA600T PO; +GABA600T4 PO; -GLUC4CHW PO; +GLUC4CHW19 PO; +HYDR-3910 PO; -HYDR-4266 PO; -ISOVUE-300 61% 50ML VIAL (Q9967) As Ordered ONE; +KLOR10TA76 PO; -LASI40TA PO; +LASI40TA9 PO; +LEVO30TA PO; -LIDOCAINE 2% MDV 20 ML VIAL As Ordered ONE; -METO-207 PO; +METO1TAB7 PO; -PANT40TA2 PO; +PANT40TA3 PO; -POTA10CA PO; +RENATAB5 PO; +SEVE800T3 PO; -SODIUM BICARBONATE 8.4% INJ 50MEQ 50 ML VIAL As Ordered ONE; -VALS1TAB48 PO; +VALS1TAB68 PO; -VANC250C2 PO; +VANC250C3 PO; -VITA50003 PO; +VITA50005 PO; +VITA500T17 PO; -VITA500T53 PO
[2018-09-11] MEDS ORDERED: LEVO75TA4 PO (13:10)
[2018-09-11] MEDS ORDERED: BASA100I SC (13:10)
[2018-09-11] MEDS ORDERED: LISI10TA4 PO (13:10)
[2018-09-11] MEDS ORDERED: CALC1CAP31 PO ×2 (13:10→15:47)
[2018-09-11] MEDS ORDERED: NS 1,000 ML IV SCH (13:31)
[2018-09-11] MEDS ORDERED: MORPHINE 4 MG/ML 1ML VIAL/SYRINGE (J2270) IV ONE ×2 (13:45→15:30)
[2018-09-11] MEDS ORDERED: METOCLOPRAMIDE INJ 10MG/2ML VIAL (J2765) IV ONE (13:45)
[2018-09-11 14:09] LABS: BASO # 0.1 10^3/uL (0.0-0.2); BASO % 0.6 % (0.0-1.0); EOS % 0.2 % (0.0-3.0); HEMOGLOBIN 12.3 g/dl (12.0-15.5); LYMPH # 1.2 10^3/uL (1.5-4.5); MEAN CORPUSCULAR HEMOGLOBIN 30.3 pg (27.0-33.0); MEAN CORPUSCULAR HGB CONC 31.5 g/dl (32.0-36.5); MEAN CORPUSCULAR VOLUME 96.1 fl (80.0-96.0); MONO # 0.7 10^3/uL (0.0-0.8); MONO % 6.1 % (0.0-5.0); NEUTROPHILS # 9.7 10^3/uL (1.8-7.7); NEUTROPHILS % 82.8 % (36.0-66.0); PLATELET COUNT, AUTOMATED 169 10^3/uL (150-450); RED BLOOD COUNT 4.06 10^6/uL (4.00-5.40); WHITE BLOOD COUNT 11.7 10^3/uL (4.0-10.0)
[2018-09-11 14:25] LABS: ALBUMIN 3.1 GM/DL (3.2-5.2); BILIRUBIN,DIRECT 0.2 MG/DL (0.0-0.2); BILIRUBIN,TOTAL 0.9 MG/DL (0.2-1.0); TOTAL PROTEIN 6.6 GM/DL (6.4-8.2)
--- NOTE | 2018-09-11 14:49 | REP ---
Clinical: Right upper quadrant/epigastric pain. Technique: Axial noncontrast images from the lung bases to the pubic symphysis with coronal and sagittal re-formations. Findings: Small to moderate amount of pneumoperitoneum is appreciated and possibly related to peritoneal dialysis as a dialysis catheter is identified via the left anterior pelvic wall into the pelvis and a small amount of associated peritoneal fluid is appreciated. Differential diagnosis cannot exclude perforated viscus and warrants correlation. Liver, spleen, pancreas, and bilateral adrenal glands are normal for noncontrast evaluation. Cholelithiasis noted without evidence for acute cholecystitis. Kidneys demonstrate mild atrophic changes and mild chronic-appearing perinephric stranding with small renovascular calcifications and no evidence for hydronephrosis. Evaluation of the enteric system is without obstruction or obvious acute inflammatory process. Normal terminal ileum and appendix are identified in the right lower quadrant. Pelvis demonstrates collapsed bladder and evidence of prior hysterectomy. No obvious adenopathy. Atherosclerotic changes of the aorta and vasculature noted without aneurysm. Skeletal structures are intact without focal abnormality. Lung bases are clear. Impression: 1. Small to moderate amount of pneumoperitoneum likely related to peritoneal dialysis although correlation is required to exclude perforated viscus. The small large bowel is grossly unremarkable in appearance. 2. Cholelithiasis without evidence for acute cholecystitis. 3. Mild atrophic changes to the kidneys without hydronephrosis. 4. No further acute abdominopelvic pathology appreciated. Electronically Signed by Bin Liang MD 09/11/2018 02:42 P
[2018-09-11] MEDS ORDERED: METOPROLOL TART 25 MG TABLET As Ordered ONE (15:06)
[2018-09-11] MEDS ORDERED: METOPROLOL TART 12.5 MG PER 1/2 TAB PO ONE (15:15)
[2018-09-11] MEDS ORDERED: MEROPENEM INJ 1 GM in APPROPRIATE DILUENT 1 EA IV ONE ×2 (15:15→15:45)
[2018-09-11] MEDS ORDERED: GI COCKTAIL 50ML BTL(HYOSCYAMINE/MAALOX/LIDOCAINE VISCOUS)(1:3:1) PO ONE (15:15)
[2018-09-11] MEDS ORDERED: MEROPENEM INJ 2 GM in NS 100 ML IV ONE (15:15)
[2018-09-11] MEDS ORDERED: POTASSIUM CHLORIDE 10 MEQ SR TABLET PO ONE (15:30)
[2018-09-11] MEDS ORDERED: hydrALAZINE INJ 20 MG/ML VIAL IV PRN (15:30)
[2018-09-11] MEDS ORDERED: DEXTROSE 50% 50 ML SYRINGE IV PRN (15:30)
[2018-09-11] MEDS ORDERED: GLUCOSE 4 GM CHEW TABLET PO PRN (15:30)
[2018-09-11] MEDS ORDERED: GLUCAGON FOR INJ 1 MG VIAL (J1610) SC PRN (15:30)
[2018-09-11] MEDS ORDERED: METO1TAB87 PO (15:47)
[2018-09-11] MEDS ORDERED: DRIS50003 PO (15:51)
[2018-09-11] MEDS ORDERED: LIQULIQ6 PO (15:51)
[2018-09-11] MEDS ORDERED: MIRC0.3I SC (15:51)
[2018-09-11] MEDS ORDERED: GENT1OI TOP (15:51)
[2018-09-11] MEDS: HumaLOG INSULIN (NovoLOG) PER UNIT SC SCH ×2 (17:30→20:00)
[2018-09-11] MEDS: METOPROLOL TART 25 MG TABLET PO SCH (19:58)
[2018-09-11] MEDS: HEPARIN SOD (PORCINE) 5000 UNITS/ML VIAL SC SCH (19:59)
[2018-09-11 20:00] VITALS: BP 155/70
--- NOTE | 2018-09-11 20:03 | HPEPDOC ---
General Date of Admission September 11, 2018 at 15:16 Date of Service: September 11, 2018 Chief Complaint The patient is a 48-year-old female admitted with a reason for visit of Abdominal Pain Esrd. Source: Patient History of Present Illness is a 48-year-old female with a history of end-stage renal disease currently on peritoneal dialysis who presents to the ER with complains of abdominal pain, nausea, vomiting as well as diarrhea. The patient reports her symptoms have been ongoing since August 23. She reports she was admitted at a hospital in [place] and was discharged around August 26at that time, it was thought her symptoms were related to gallstones although she apparently did not seem to have any problems with obstruction, was managed conservatively and was discharged home subsequently. However, she reports she has been having recurrence of the abdominal pain, chiefly in the right upper part of her abdomen, sharp in nature, associated with heartburn, 10 over 10 in intensity at worst, fairly constant, worse with moving, better with the morphine she received in the ER, seems to radiate towards her right back. She also reports having problems initially with coffee-ground emesis however, more recently, it has been cleared. She reports associated chills and sweats. She does report diarrhea however this seems to be chronic and she has not noticed any blood in her stools. She also reports problems with headaches. Reports poor vision out of her left eyereports she is getting laser treatment for the same. Denies any chest pain or shortness of breath although, when her abdominal pain and heartburn gets bad, it seems to affect her breathing. Home Medications Scheduled Amino AC/Protein Hydr/Whey Pro (Liquacel Liquid Protein) 960 Ml Liquid, 1 LIQ PO 3XW, (Reported) MON/WED/FRI Calcitriol (Calcitriol) 0.25 Mcg Capsule, 0.5 MCG PO 3XW, (Reported) MON/WED/FRI Calcitriol (Calcitriol) 0.25 Mcg Capsule, 0.25 MCG PO 4XWK, (Reported) SUN//SUN/SUN Ergocalciferol (Vitamin D2) (Drisdol) 50,000 Unit Capsule, 50,000 UNIT PO QWEEK, (Reported) SUNDAYS Ferric Citrate (Auryxia) 210 Mg Tab, 420 MG PO TID, (Reported) Folic Acid/Vit B Complex and C (April-Antonina Tablet) 1 Tab Tab, 1 TAB PO DAILY, (Reported) Gentamicin Sulfate (Gentamicin Sulfate) 15 Gm Oint...g., 1 APLCT TOP QHS, (Reported) APPLY WITH EACH DRESSING CHANGE TO PERITONEAL DIALYSIS SITE Insulin Glargine,Hum.rec.anlog (Basaglar Kwikpen U-100) 100 Unit/1 Ml Insuln.pen, 20 UNIT SC QHS, (Reported) Isosorbide Mononitrate (Isosorbide Mononitrate ER) 30 Mg Tab, 30 MG PO DAILY, (Reported) Levothyroxine Sodium (Levothyroxine Sodium) 75 Mcg Tablet, 75 MCG PO QAM, (Reported) Lisinopril (Lisinopril) 10 Mg Tablet, 10 MG PO DAILY, (Reported) Methoxy Peg-Epoetin Beta (Mircera) 75 Mcg/0.3 Ml Syringe, 75 MCG SC QMONTH, (Reported) Metoprolol Tartrate (Metoprolol Tartrate) 25 Mg Tablet, 25 MG PO BID, (Reported) Sevelamer Carbonate (Sevelamer Carbonate) 800 Mg Tab, 2,400 MG PO TID, (Reported) Allergies Coded Allergies: Penicillins (Verified Allergy, Unknown, UNKNOWN CHILDHOOD REACTION, 09/11/18) PER [facility] RECORDS PT HAS RECEIVED MEROPENEM AND CEFEPIME IN THE PAST Past Medical History Medical History End-stage renal disease on peritoneal dialysis, diabetes mellitus type 2, hypertension, hyperlipidemia, systolic congestive heart failure with ejection fraction 25-30% at baseline, pericardial effusion status post pericardiocentesis in 2016, peripheral vascular disease, chronic anemia, peripheral neuropathy, hypothyroidism, diabetic neuropathy and retinopathy Surgical History Cardiac catheterization in March 2016 without stent placement, hysterectomy, right foot biopsy, right chest tube placement in 2016, pericardial centesis with tube pericardiostomy, section, tubal ligation, left upper extremity AV fistula creation leading to steal syndrome following which it was ligated with placement of right lower extremity graft, kidney and liver biopsies Family History Mom, dad as well as siblings have diabetes mellitus. Cousin has liver cirrhosis Social History * Smoker: other ([id number] history of smokingquit 6 months ago.) Alcohol: Denies Drugs: denies A-FIB/CHADSVASC A-FIB History Current/History of A-Fib/PAF?: No Review of Systems Other systems Negative for 10 systems except as noted under history of present illness Physical Examination General Exam: Positive: Alert, Cooperative, No Acute Distress Eye Exam: Positive: PERRLA ENT Exam: Positive: Mucous membr. moist/pink Chest Exam: Positive: Clear to auscultation, Normal air movement; Negative: Rales, Rhonchi, Wheezing Heart Exam: Positive: Rate Normal, Normal S1, Normal S2; Negative: Tachycardic Abdomen Exam: Positive: BS Hypoactive, Soft, Tenderness (right upper quadrant tenderness. No guarding or rigidity), Other (peritoneal dialysis catheter in placesite appears intact. No erythema/drainage) Extremity Exam: Positive: Other (peripheral pulses are palpable); Negative: Edema, Swelling Skin Exam: Negative: Rash Neuro Exam: Positive: Other (awake, alert, oriented 3 and answering questions appropriately) Vital Signs Vital Signs Date Time Temp Pulse Resp B/P (MAP) Pulse Ox O2 Delivery O2 Flow Rate FiO2 09/11/18 18:45 97.9 71 18 183/77 (112) 97 Room Air Laboratory Data Labs 24H Laboratory Tests 2 09/11/18 13:31: Immature Granulocyte % (Auto) 0.3, White Blood Count 11.7H, Red Blood Count 4.06, Hemoglobin 12.3, Hematocrit 39.0, Mean Corpuscular Volume 96.1H, Mean Corpuscular Hemoglobin 30.3, Mean Corpuscular Hemoglobin Concent 31.5L, Red Cell Distribution Width 15.6H, Platelet Count 169, Neutrophils (%) (Auto) 82.8H, Lymphocytes (%) (Auto) 10.0L, Monocytes (%) (Auto) 6.1H, Eosinophils (%) (Auto) 0.2, Basophils (%) (Auto) 0.6, Neutrophils # (Auto) 9.7H, Lymphocytes # (Auto) 1.2L, Monocytes # (Auto) 0.7, Eosinophils # (Auto) 0.0, Basophils # (Auto) 0.1, Nucleated Red Blood Cells % (auto) 0.0, Lactic Acid Level 1.2, Aspartate Amino Transf (AST/SGOT) 28, Alanine Aminotransferase (ALT/SGPT) 14, Alkaline Phosphatase 95, Total Bilirubin 0.9, Direct Bilirubin 0.2, Total Protein 6.6, Albumin 3.1L, Albumin/Globulin Ratio 0.89L, Lipase 224 09/11/18 13:40: 09/11/18 13:51: POC Glucose (Misc Panel) 147H, POC Sodium (Misc Panel) 140, POC Potassium (Misc Panel) 3.4L, POC Chloride (Misc Panel) 97L, POC Total CO2 (Misc Panel) 30.0H, POC Blood Urea Nitrogen (Misc Panel 37H, POC Ionized Calcium (Misc Panel) 4.1L, POC Creatinine (Misc Panel) 15.4H, POC Hematocrit (Misc Panel) 37.0L CBC/BMP Laboratory Tests 09/11/18 13:31 Red Blood Count 4.06, Mean Corpuscular Volume 96.1 H, Mean Corpuscular Hemoglobin 30.3, Mean Corpuscular Hemoglobin Concent 31.5 L, Red Cell Distribution Width 15.6 H, Neutrophils (%) (Auto) 82.8 H, Lymphocytes (%) (Auto) 10.0 L, Monocytes (%) (Auto) 6.1 H, Eosinophils (%) (Auto) 0.2, Basophils (%) (Auto) 0.6, Neutrophils # (Auto) 9.7 H, Lymphocytes # (Auto) 1.2 L, Monocytes # (Auto) 0.7, Eosinophils # (Auto) 0.0, Basophils # (Auto) 0.1 Assessment/Plan Current Medications Acetaminophen (Tylenol Tab) 650 mg Q4H PRN PO PAIN OR FEVER; Start 09/11/18 at 15:30 Calcitriol (Rocaltrol) 0.25 mcg SuTuThSa@0900 PO ; Start 09/12/18 at 09:00 Calcitriol (Rocaltrol) 0.5 mcg MoWeFr@0900 PO ; Start 09/13/18 at 09:00 Dextrose (Dextrose 50%) 25 ml ASDIRECTED PRN IV SEE LABEL COMMENTS; Start 09/11/18 at 15:30 Ferrous Gluconate (Fergon) 324 mg TID PO ; Start 09/11/18 at 21:00 Gentamicin Sulfate (Garamycin 0.1% Topical Ointment) apply to PD cath site QHS TOP ; Start 09/11/18 at 21:00 Glucagon (Glucagon) 1 mg ASDIRECTED PRN SC SEE LABEL COMMENTS; Start 09/11/18 at 15:30 Glucose (Glucose) 16 GM ASDIRECTED PRN PO SEE LABEL COMMENTS; Start 09/11/18 at 15:30 Heparin Sodium (Porcine) (Heparin) 5,000 units Q12H SC ; Start 09/11/18 at 21:00 Home Med (Med Rec Complete!) ASDIRECTED XX ; Start 09/11/18 at 16:00; Stop at 16:00; Status DC Hydralazine HCl (Apresoline) 10 mg Q4HP PRN IV hypertension Last administered on 09/11/18at 16:15; Start 09/11/18 at 15:30 Insulin Human Lispro (HumaLOG INSULIN) SEE PROTOCOL TABLE AC SC ; Start 09/11/18 at 17:30 Insulin Human Lispro (HumaLOG INSULIN) SEE PROTOCOL TABLE QHS SC ; Start 09/11/18 at 21:00 Isosorbide Mononitrate (Imdur) 30 mg DAILY PO ; Start 09/12/18 at 09:00 Levothyroxine Sodium (Synthroid) 75 mcg QAM@0600 PO ; Start 09/12/18 at 06:00 Lisinopril (Prinivil) 10 mg DAILY PO ; Start 09/12/18 at 09:00 Meropenem 1 gm/IV Miscellaneous Supplies 50 ml @ 100 mls/hr Q24H IV ; Start 09/12/18 at 15:00 Metoprolol Tartrate (Lopressor) 25 mg BID PO ; Start 09/11/18 at 21:00 Ondansetron HCl (ZOFRAN INJection) 4 mg Q4HP PRN IV NAUSEA OR VOMITING; Start 09/11/18 at 15:30 Prenat Multivit/ Electrical Prospecting Observer/Iron/Folic Ac ( Vitamins) 1 tab DAILY PO ; Start 09/12/18 at 09:00 Sevelamer Carbonate (Renvela) 2,400 mg WM PO ; Start 09/12/18 at 08:00 Sodium Chloride 1,000 ml @ 100 mls/hr Q10H IV Last administered on 09/11/18at 14:05; Start 09/11/18 at 13:31 CT scan abdomen and pelvis: Impression: 1. Small to moderate amount of pneumoperitoneum likely related to peritoneal dialysis although correlation is required to exclude perforated viscus. The small large bowel is grossly unremarkable in appearance. 2. Cholelithiasis without evidence for acute cholecystitis. 3. Mild atrophic changes to the kidneys without hydronephrosis. 4. No further acute abdominopelvic pathology appreciated. Intractable abdominal pain, nausea, vomiting rule out spontaneous bacterial peritonitis in setting of peritoneal dialysis catheter: -Dialysate fluid will be sent for Gram stain and culture -Patient was initiated on IV meropenemcontinue same for now -Certainly, patient's symptoms could also be related to underlying gastritis/peptic ulcer disease - if nausea/vomiting/abdominal pain do not improve with conservative treatment within the next 24-48 hours, may require GI consultation to evaluate for possible EGD -Less likely related to gallstones itself, since her LFTs are unremarkable and bilirubin is normal and CT scan does not show any acute cholecystitis -Lipase is normalless likely to be pancreatitis -Continue clear liquids if tolerated -IV fluids, when necessary morphine for pain and when necessary Zofran for nausea -IV Protonix End-stage renal disease on peritoneal dialysis: -Nephrology has been consulted -Peritoneal Dialysis per nephrology Chronic systolic congestive heart failure baseline ejection fraction 25-30%: -Continue metoprolol, lisinopril. -Watch for fluid overload with IV fluids Diabetes mellitus type 2 on long-term insulin therapy complicated by diabetic neuropathy as well as retinopathy: -Hold long-acting insulin given patient's nausea and vomiting -Sliding-scale insulin with fingersticks before meals/at bedtime Uncontrolled hypertension: -Likely secondary to missing her oral medications from the nausea/vomiting -Continue metoprolol, lisinopril and Imdur -When necessary IV hydralazine Hypothyroidism: -Levothyroxine GI/DVT PPX: -PPI/subcutaneous heparin CODE STATUS: -Full code per my discussion with the patient Disposition: -Admit as an inpatient to telemetry. Anticipated length of stay more than 2 midnights. Anticipate eventual discharge home once medically stable Plan / VTE VTE Prophylaxis Ordered?: Yes SHERRI REILLY MD September 11, 2018 20:03
[2018-09-11] MEDS ORDERED: FERROUS GLUCONATE 324 MG TAB PO SCH (21:00)
[2018-09-11] MEDS: GENTAMICIN SULFATE 0.1% OINT 15 GM TOP SCH (21:00)
[2018-09-11] MEDS: MORPHINE 4 MG/ML 1ML VIAL/SYRINGE (J2270) IV PRN (21:43)
[2018-09-11] MEDS: PANTOPRAZOLE 40MG INJ (PROTONIX) (C9113) IV SCH (21:43)
--- NOTE | 2018-09-11 22:55 | CR ---
DATE OF CONSULTATION: 09/11/2018 REQUESTING PHYSICIAN: Dr. Luis Carlos Pineda in the emergency room. CONSULTING PHYSICIAN: Dr. Mcdaniel REASON FOR CONSULTATION: Management of end-stage renal disease and peritoneal dialysis. CHIEF COMPLAINT: Abdominal pain. HISTORY OF PRESENT ILLNESS: Subha Trivedi is a 48-year-old female with a past medical history of end-stage renal disease, on peritoneal dialysis, history of hypertension, hypothyroidism, multiple other comorbidities as mentioned below. She presented to the emergency room today with progressive right upper quadrant abdominal pain. The patient reports that she has been having this pain since beginning of August 2018, and she was admitted in [place] with the same symptoms about 2 weeks ago. She was told that her symptoms were related to gallstones, although the imaging did not show any obstruction of the common bile duct (CBD). The patient reports that her abdominal pain is not getting better. She gets worsening abdominal pain when her abdomen is filled with the peritoneal fluid. Sometimes the pain is 10/10 in intensity. It radiates to her central chest. She also reports fevers, chills, rigors, nausea, and vomiting because of the pain, and she also reports decreased a petite. The patient is being admitted under the hospitalist service. Nephrology service was called for further help in the management of end-stage renal disease and peritoneal dialysis and to further rule out possibility of peritonitis. I saw and evaluated the patient today afternoon in the emergency room. She was awake and alert. She reported that she was given intravenous (IV) morphine, and with that her pain was slightly better. The patient's family members were also present at the bedside. PAST MEDICAL HISTORY 1. End-stage renal disease, on peritoneal dialysis. She reports she use to be on hemodialysis, but she was switched to peritoneal dialysis because of severe cramps with hemodialysis. 2. Diabetes mellitus, type 2. 3. Hypertension. 4. Hyperlipidemia. 5. Chronic systolic congestive heart failure. 6. Peripheral vascular disease. 7. Anemia and end-stage renal disease. 8. Hypothyroidism. 9. Diabetic neuropathy and retinopathy. PAST SURGICAL HISTORY: 1, History of hysterectomy in the past. 2. Right chest tube placement in 2016. 3. History of pericardiocentesis in 2016 as well. 4. History of section. 5. Tubal ligation. 6. History of left upper arm arteriovenous (AV) fistula placement, which was ligated later on because of steal syndrome. 7. History of her right thigh AV graft placement. ALLERGIES: The patient is allergic to PENICILLINS. FAMILY HISTORY: No significant family history of end-stage renal disease; however, there is family history of liver cirrhosis. SOCIAL HISTORY: The patient is an ex-smoker. She quit about 6 months ago. She denies any illicit drug abuse or alcohol abuse. REVIEW OF SYSTEMS: CONSTITUTIONAL: Patient reports chills and fevers. EYES: She denies any blurry vision, double vision. ENT: She denies any dysphagia, odynophagia. CARDIOVASCULAR: She denies any chest pain or palpitations. RESPIRATORY: She denies any shortness of breath or cough. GASTROINTESTINAL: She reports right upper quadrant abdominal pain, nausea, vomiting, and decreased appetite. GENITOURINARY: She denies any dysuria or hematuria. MUSCULOSKELETAL: She denies any muscle aches and pains. CENTRAL NERVOUS SYSTEM: She denies any strokes or seizures. SKIN: She denies any rashes or ulcers. ENDOCRINE: She reports history of hypothyroidism. HEMATOLOGIC/ONCOLOGIC: She denies any easy bleeding or bruising. All other review of systems is negative. PHYSICAL EXAMINATION: GENERAL: The patient is awake, alert, oriented times three, lying in the bed in no apparent distress. VITAL SIGNS: Temperature is 97.9 degrees Fahrenheit, blood pressure 183/77, pulse is 71, respiratory rate of 18, saturating 97% on room air. HEAD AND NECK: Extraocular muscles intact. Pupils equally round and reactive to light. Mucous membranes are moist. Neck is supple. There is no jugular venous distention (JVD). CARDIOVASCULAR: S1, S2, regular rate. No edema of the bilateral lower extremities. RESPIRATORY: Chest is clear to auscultation bilaterally. Bilateral equal air entry. No rales or rhonchi. ABDOMEN: Soft, mildly tender in the right upper quadrant. There is left lower quadrant peritoneal dialysis catheter. Exit site is clean. Bowel sounds are positive MUSCULOSKELETAL: No clubbing or cyanosis. Pulses are 2+. CENTRAL NERVOUS SYSTEM: No focal deficit. Power is 5/5 in all extremities. PSYCHIATRIC: Normal mood and affect. SKIN: No rashes or ulcers. LABORATORY REVIEW: CBC showed WBC 11.7, hemoglobin is 12.3, platelets are 169. Liver panel showed total bilirubin 0.9, AST 28, ALT is 14, albumin is 3.1. Lactic acid is 1.2. Microbiology: No cultures are available at this time. IMAGING: CT scan of the abdomen and pelvis without contrast was done, which showed small to moderate amount of pneumoperitoneum related to peritoneal dialysis. Small and large bowel was unremarkable in appearance. There was cholelithiasis without evidence of acute cholecystitis. CURRENT INPATIENT MEDICATIONS: The patient's medications were all reviewed by me. She is currently on meropenem 1 gram IV every 24. She has been started on normal saline at 50 mL an hour. I am going to stop the IV fluids, because the patient has renal failure. Tylenol as needed, calcitriol 0.25 mcg by mouth on Sunday, Sunday, , Sunday, and 0.5 mcg Sunday, Sunday, Sunday, iron tablet 324 mg by mouth three times a day, which I am going to stop at this time because the patient has abdominal pain, gentamicin topically on the peritoneal dialysis (PD) catheter, heparin subcutaneous every 12 hours, hydralazine 10 mg IV every 4 hours as needed for pain, GI cocktail 50 mL by mouth one, insulin sliding scale, Imdur 30 mg by mouth daily, levothyroxine 75 mcg daily, lisinopril 10 mg by mouth daily, Reglan as needed, metoprolol tartrate 25 mg by mouth twice a day, morphine as needed, multivitamin, Zofran as needed, Protonix 40 mg IV daily, potassium chloride 20 mEq by mouth one dose was given, and she is on Renvela 2.4 grams by mouth with meals ASSESSMENT: A 48-year-old female with end-stage renal disease, on peritoneal dialysis, history of hypertension, diabetes mellitus, type 2, hypothyroidism, admitted at this time with right upper quadrant pain. PLAN: 1. End-stage renal disease, on peritoneal dialysis. The patient has decreased oral intake at this point because of abdominal pain. I have ordered peritoneal dialysis five manual exchanges a day, all 1.5% each. Exchange will be 2 liters. I have also ordered peritoneal fluid cell count and culture to be sent now with first exchange and every day in the morning. If there is any evidence of acute peritonitis, then intraperitoneal antibiotics will be given. 2. Intractable abdominal pain, right upper quadrant. As mentioned above, I would send the peritoneal fluid cell count and culture to rule out peritonitis. The patient also has cholelithiasis without cholecystitis. Continue pain optimization. Meropenem dose is optimal. Given her abdominal pain, I have also stopped the Renvela phosphorus binders and oral iron tablets as well. Lipase level was normal. Continue IV Protonix. 3. Chronic systolic congestive heart failure with an ejection fraction of about 30%. Continue home dose of isosorbide, lisinopril, and metoprolol. Volume status is optimized with dialysis. IV fluids have been stopped. 4. Hypertension with end-stage renal disease and hypertensive heart disease. Continue current dose of metoprolol, lisinopril, and Imdur. No need of IV fluid at this time. Continue IV hydralazine as needed. 5. Diabetes mellitus, type 2, insulin dependent. The patient is currently on insulin sliding scale. 6. Secondary hyperparathyroidism. Continue home dose of calcitriol. 7. Chronic kidney disease and mineral bone disease. The patient is on Renvela 2.4 grams by mouth with meals. Because of the abdominal pain, I am going to hold Renvela at this point. I will check the phosphorus level in the morning and switch the patient to another phosphorus binder if needed. Thank you for involving me in care of this patient. I shall be happy to follow the patient along with you tomorrow morning.
[2018-09-11 23:59] VITALS: BP 141/63
[2018-09-12 02:19] LABS: APPEARANCE, BODY FLUID CLEAR (CLEAR); PERITONEAL FL COLOR YELLOW (COLORLESS); SOURCE, BODY FLUID PERITONEAL
[2018-09-12 04:00] VITALS: BP 145/65
[2018-09-12] MEDS: MORPHINE 4 MG/ML 1ML VIAL/SYRINGE (J2270) IV PRN ×4 (04:15→23:14)
[2018-09-12] MEDS: ONDANSETRON 4MG/2ML VIAL (J2405) IV PRN ×2 (04:38→09:15)
[2018-09-12 05:35] LABS: HEMATOCRIT 32.3 % (36.0-47.0); MEAN CORPUSCULAR HEMOGLOBIN 30.3 pg (27.0-33.0); MEAN CORPUSCULAR VOLUME 97.9 fl (80.0-96.0); PLATELET COUNT, AUTOMATED 132 10^3/uL (150-450); WHITE BLOOD COUNT 8.6 10^3/uL (4.0-10.0)
[2018-09-12 06:02] LABS: ALBUMIN 2.3 GM/DL (3.2-5.2); BILIRUBIN,TOTAL 0.7 MG/DL (0.2-1.0); CALCIUM LEVEL 7.8 MG/DL (8.5-10.1); CREATININE FOR GFR 14.4 MG/DL (0.55-1.30); GLOMERULAR FILTRATION RATE 2.9 (>58); MAGNESIUM LEVEL 2.2 MG/DL (1.8-2.4); PHOSPHORUS LEVEL 4.7 MG/DL (2.5-4.9); POTASSIUM SERUM 3.6 MEQ/L (3.5-5.1); TOTAL PROTEIN 5.4 GM/DL (6.4-8.2)
[2018-09-12] MEDS: LEVOTHYROXINE 75MCG TABLET (0.075MG) PO SCH (06:18)
[2018-09-12] MEDS: HumaLOG INSULIN (NovoLOG) PER UNIT SC SCH ×4 (07:30→21:00)
[2018-09-12] MEDS ORDERED: (RENVELA) SEVELAMER **CARBONate** 800 MG TAB PO SCH (08:00)
[2018-09-12] MEDS: PRENATAL VITAMINS CHEWABLE TABLET PO SCH (09:02)
[2018-09-12] MEDS: ISOSORBIDE MON. (IMDUR) 30 MG XR TAB PO SCH (09:05)
[2018-09-12] MEDS: CALCITRIOL 0.25 MCG CAP (S0169) PO SCH (09:05)
[2018-09-12] MEDS: LISINOPRIL 10 MG TAB PO SCH (09:05)
[2018-09-12] MEDS: METOPROLOL TART 25 MG TABLET PO SCH ×2 (09:05→20:52)
[2018-09-12] MEDS: PANTOPRAZOLE 40MG INJ (PROTONIX) (C9113) IV SCH (09:05)
[2018-09-12] MEDS: HEPARIN SOD (PORCINE) 5000 UNITS/ML VIAL SC SCH ×2 (09:06→20:52)
[2018-09-12 12:00] VITALS: BP 146/68
[2018-09-12 12:38] LABS: APPEARANCE, BODY FLUID HAZY (CLEAR); PERITONEAL DIALYSATE FL COLOR COLORLESS (COLORLESS); SOURCE, BODY FLUID PERITONEAL DIALYSATE
[2018-09-12] MEDS: MEROPENEM INJ 1 GM in APPROPRIATE DILUENT 1 EA IV SCH (14:40)
[2018-09-12 16:00] VITALS: BP 142/84
--- NOTE | 2018-09-12 17:28 | IPNPDOC ---
Subjective Date Seen The patient was seen on 09/12/18. Subjective Chief Complaint/HPI Abdominal pain, nausea, vomiting Events since last encounter A shunt reported this morning that her symptoms seemed a little better. Still had some problems with nausea and heartburn, no vomiting this morning. No overnight fevers although felt some chills. Denies any chest pain. No dysuria. Still some diarrhea but no blood in stools. Objective Physical Examination General Exam: Positive: Alert, Cooperative, No Acute Distress, Other (lying in bed) Eye Exam: Positive: PERRLA ENT Exam: Positive: Mucous membr. moist/pink Chest Exam: Positive: Clear to auscultation, Normal air movement; Negative: Rales, Rhonchi, Wheezing Heart Exam: Positive: Rate Normal, Normal S1, Normal S2; Negative: Tachycardic Abdomen Exam: Positive: BS Hypoactive, Soft, Tenderness (still has some right upper quadrant tenderness, no guarding or rigidity), Other Extremity Exam: Positive: Other (peripheral pulses are palpable); Negative: Edema, Swelling Skin Exam: Negative: Rash Neuro Exam: Positive: Other (awake, alert, oriented 3 and answering questions appropriately) Assessment /Plan Assessment Intractable abdominal pain, nausea, vomiting rule out spontaneous bacterial lucila tonitis in setting of peritoneal dialysis catheter: -Dialysate fluid to be sent for cell count and culture dailyappreciate input by nephrology -Fluid from yesterday shows many WBCs and RBCs on Gram stain but no organisms. Culture pending -Patient on IV meropenem day 2 -Case was discussed with Dr. Mcdaniel from nephrology today she had similar symptoms earlier this month when she was admitted at a hospital in [place]. Had a HIDA scan done at that time that apparently showed deviated emptying of the gallbladder but no overt cholecystitis. Does also have gallstones as noted on CT scan on presentation. Recommends surgical consultationcase was discussed with Dr. Hoff from surgery who will evaluate the patient for need for cholecystectomy. -Lipase is normalless likely to be pancreatitis -Continue clear liquids as tolerated -Off IV fluids, Ct prn morphine, prn Zofran -IV Protonix End-stage renal disease on peritoneal dialysis: -Peritoneal Dialysis per nephrology Chronic systolic congestive heart failure baseline ejection fraction 25-30%: -Continue metoprolol, lisinopril. Diabetes mellitus type 2 on long-term insulin therapy complicated by diabetic neuropathy as well as retinopathy: -Hold long-acting insulin given patient's nausea and vomiting -Continue sliding scale insulin alonefingersticks appear controlled Uncontrolled hypertension: -Improved -Continue metoprolol, lisinopril and Imdur -When necessary IV hydralazine Hypothyroidism: -Levothyroxine GI/DVT PPX: -PPI/subcutaneous heparin Disposition: As noted above, surgical consultation has been requested to evalua te for need for cholecystectomy. Anticipate eventual discharge home once patient is medically stable Plan/VTE VTE Prophylaxis Ordered?: Yes VS, I&O, 24H, Fishbone Vital Signs/I&O Vital Signs Date Time Temp Pulse Resp B/P (MAP) Pulse Ox O2 Delivery O2 Flow Rate FiO2 09/12/18 14:31 18 09/12/18 12:00 98.2 66 146/68 (94) 99 09/11/18 18:45 Room Air I&O- Last 24 Hours up to 6 AM 09/12/18 06:00 Intake Total 2460 ml Output Total 150 ml Balance 2310 ml Laboratory Data 24H LABS Laboratory Tests 2 09/11/18 19:56: Bedside Glucose (Misc Panel) 111H 09/12/18 00:37: Body Fluid WBC (Auto) 154H, Body Fluid RBC (Auto) < 2, Body Fluid Mononuclear Cells % Auto 81.1H, Fluid Polymorphonuclear Cell % Auto 18.9H, Peritoneal Fluid Source PERITONEAL, Peritoneal Fluid Color YELLOW, Peritoneal Fluid Appearance CLEAR 09/12/18 05:17: Nucleated Red Blood Cells % (auto) 0.0, Anion Gap 10, Glomerular Filtration Rate 2.9L, Blood Urea Nitrogen 39H, Creatinine 14.40*H, Sodium Level 143, Potassium Level 3.6, Chloride Level 105, Carbon Dioxide Level 28, Calcium Level 7.8L, Phosphorus Level 4.7, Aspartate Amino Transf (AST/SGOT) 19, Alanine Aminotransferase (ALT/SGPT) 12, Alkaline Phosphatase 69, Total Bilirubin 0.7, Total Protein 5.4L, Albumin 2.3#L, Magnesium Level 2.2, Albumin/Globulin Ratio 0.74L 09/12/18 07:45: Bedside Glucose (Misc Panel) 104 09/12/18 12:05: Bedside Glucose (Misc Panel) 121H 09/12/18 12:14: Body Fluid Source PERITONEAL DIALYSATE, Body Fluid WBC (Auto) 12H, Body Fluid RBC (Auto) < 2, Body Fluid Mononuclear Cells % Auto 75.0H, Fluid Polymorphonuclear Cell % Auto 25.0H, Peritoneal Fluid Color COLORLESS, Peritoneal Fluid Appearance HAZY CBC/BMP Laboratory Tests 09/12/18 05:17 Red Blood Count 3.30 L, Mean Corpuscular Volume 97.9 H, Mean Corpuscular Hemogl obin 30.3, Mean Corpuscular Hemoglobin Concent 31.0 L, Red Cell Distribution Width 15.9 H, Calcium Level 7.8 L, Phosphorus Level 4.7, Aspartate Amino Transf (AST/SGOT) 19, Alanine Aminotransferase (ALT/SGPT) 12, Alkaline Phosphatase 69, Total Bilirubin 0.7, Total Protein 5.4 L, Albumin 2.3 #L Microbiology Microbiology 09/12/18 Gram Stain - Final, Resulted 09/12/18 Body Fluid Culture, Resulted Pending SHERRI REILLY MD September 12, 2018 17:28
[2018-09-12 20:00] VITALS: BP 148/66
--- NOTE | 2018-09-12 20:34 | IPN ---
DATE: 09/12/2018 SUBJECTIVE: The patient was seen and examined at the bedside today morning. The patient is afebrile, hemodynamically stable. She still reports the pain in the right upper quadrant that she reports is not getting better despite getting intravenous (IV) antibiotics. Peritoneal fluid cell count was reviewed and is not consistent with peritonitis; however, it does point to chronic low-grade inflammation in the abdomen. The patient is otherwise tolerating the peritoneal dialysis. OBJECTIVE: Vital signs: Temperature is 98.2 degrees Fahrenheit, blood pressure 146/68, pulse is 66, respiratory rate of 17, saturating 99% on room air. Intake and output: There is no urine output recorded. Peritoneal dialysis output so far is a 6.6 liters. Weight in the bed scale is 68.7 kg. PHYSICAL EXAMINATION: GENERAL: The patient is awake, alert, oriented times three, lying in bed in no apparent distress. HEAD AND NECK: Extraocular is intact. Pupils equally round and reactive to light. Mucous membranes are moist. Neck is supple. There is no jugular venous distention (JVD). CARDIOVASCULAR: S1, S2, regular rate. No edema of the bilateral lower extremities. RESPIRATORY: Chest is clear to auscultation bilaterally. Bilateral equal air entry. No rales or rhonchi. ABDOMEN: Soft. Positive bowel sounds. Moderate amount of tenderness in the right upper quadrant. Left lower quadrant peritoneal dialysis catheter exit site is clean. MUSCULOSKELETAL: No clubbing or cyanosis. Pulses are 2+. Arteriovenous (AV) graft in the right thigh was noted. CENTRAL NERVOUS SYSTEM: No focal deficit. Power Is 5/5 in all extremities. LABORATORY REVIEW: CBC showed a WBC 8.6, hemoglobin is 10, platelets of 132. Peritoneal fluid cell count done last night was 154, and polymorphonuclears were only 19%. Repeat cell count done today showed white cell count of 12, and polymorphonuclears were only 25%. BMP done today morning showed sodium 143, potassium 3.6, chloride 105, bicarbonate 28, BUN 39, creatinine is 14, calcium 7.8. Albumin is 2.3. Microbiology: Peritoneal fluid Gram stain showed moderate red blood cells (RBC), moderate are white blood cells (WBC). No organism was seen. CURRENT INPATIENT MEDICATIONS: The patient's medications were all reviewed by me. She continues to be on IV meropenem. Renvela was stopped today morning. No other change in the medications today as compared with yesterday. ASSESSMENT AND PLAN: 1. End-stage renal disease, on peritoneal dialysis. The patient continues to tolerate peritoneal manual exchanges, all 2 liters, all 1.5%. Continue the current regimen for now. Peritoneal fluid cell count is normalizing, and it does not point towards peritonitis. 2. Intractable right upper quadrant abdominal pain. The patient continues to have abdominal pain. She was worked up in [place], and as per previous hepatobiliary iminodiacetic acid (HIDA) scan reports, there was delayed emptying of the gallbladder. The patient has gallstones as well. She needs evaluation by surgical service for evaluation of cholecystectomy. 3. Chronic systolic congestive heart failure. Volume status is optimal. He has an ejection fraction (EF) of around 20%. Continue current dose of metoprolol, lisinopril, and isosorbide. 4. Hypertension with end-stage renal disease. Her blood pressure is optimized. In addition to the above-mentioned medications, she is also on hydralazine. Volume status is optimal with the current exchanges with 1.5% dextrose. 5. Chronic kidney disease, mineral bone disease. The patient is nauseated. She has decreased appetite and abdominal pain. I have held the Renvela tablets now. Phosphorus level is within the acceptable range at this point. Plan of care was discussed with the hospitalist, Dr. Oskar Garber.
[2018-09-12] MEDS: GENTAMICIN SULFATE 0.1% OINT 15 GM TOP SCH (20:52)
[2018-09-12 23:59] VITALS: BP 152/70
[2018-09-13 04:00] VITALS: BP 170/76
[2018-09-13] MEDS: LEVOTHYROXINE 75MCG TABLET (0.075MG) PO SCH (05:09)
[2018-09-13] MEDS: ONDANSETRON 4MG/2ML VIAL (J2405) IV PRN (05:09)
[2018-09-13 05:32] VITALS: BP 162/60
[2018-09-13 06:40] LABS: BASO # 0.1 10^3/uL (0.0-0.2); BASO % 0.6 % (0.0-1.0); EOS % 0.5 % (0.0-3.0); HEMATOCRIT 37.3 % (36.0-47.0); HEMOGLOBIN 11.6 g/dl (12.0-15.5); LYMPH # 0.7 10^3/uL (1.5-4.5); LYMPH % 9.1 % (24.0-44.0); MEAN CORPUSCULAR HEMOGLOBIN 30.4 pg (27.0-33.0); MEAN CORPUSCULAR HGB CONC 31.1 g/dl (32.0-36.5); MEAN CORPUSCULAR VOLUME 97.9 fl (80.0-96.0); MONO # 0.4 10^3/uL (0.0-0.8); NEUTROPHILS # 6.6 10^3/uL (1.8-7.7); NEUTROPHILS % 84.5 % (36.0-66.0); PLATELET COUNT, AUTOMATED 109 10^3/uL (150-450); RED BLOOD COUNT 3.81 10^6/uL (4.00-5.40); WHITE BLOOD COUNT 7.8 10^3/uL (4.0-10.0)
[2018-09-13 07:11] LABS: ALBUMIN 2.4 GM/DL (3.2-5.2); BILIRUBIN,TOTAL 0.9 MG/DL (0.2-1.0); CALCIUM LEVEL 7.9 MG/DL (8.5-10.1); CREATININE FOR GFR 12.7 MG/DL (0.55-1.30); GLOMERULAR FILTRATION RATE 3.4 (>58); MAGNESIUM LEVEL 2.3 MG/DL (1.8-2.4); PHOSPHORUS LEVEL 4.9 MG/DL (2.5-4.9); POTASSIUM SERUM 3.3 MEQ/L (3.5-5.1); TOTAL PROTEIN 5.8 GM/DL (6.4-8.2)
[2018-09-13] MEDS: PANTOPRAZOLE 40MG INJ (PROTONIX) (C9113) IV SCH (07:54)
[2018-09-13] MEDS: PRENATAL VITAMINS CHEWABLE TABLET PO SCH (07:54)
[2018-09-13] MEDS: CALCITRIOL 0.25 MCG CAP (S0169) PO SCH (07:54)
[2018-09-13] MEDS: METOPROLOL TART 25 MG TABLET PO SCH ×2 (07:55→20:47)
[2018-09-13] MEDS: ISOSORBIDE MON. (IMDUR) 30 MG XR TAB PO SCH (07:55)
[2018-09-13] MEDS: LISINOPRIL 10 MG TAB PO SCH (07:56)
[2018-09-13] MEDS: HEPARIN SOD (PORCINE) 5000 UNITS/ML VIAL SC SCH ×2 (07:56→20:46)
[2018-09-13] MEDS: HumaLOG INSULIN (NovoLOG) PER UNIT SC SCH ×4 (07:57→20:21)
[2018-09-13 08:00] VITALS: BP 178/77
[2018-09-13 08:10] LABS: APPEARANCE, BODY FLUID CLEAR (CLEAR); PERITONEAL DIALYSATE FL COLOR COLORLESS (COLORLESS); SOURCE, BODY FLUID PERITONEAL DIALYSATE
--- NOTE | 2018-09-13 09:19 | CR ---
DATE OF CONSULTATION: 09/12/2018 REASON FOR CONSULTATION: Right upper quadrant pain of unclear etiology. HISTORY OF THE PRESENT ILLNESS: The patient is a 48-year-old woman with end-stage renal disease on continuous ambulatory peritoneal dialysis. I had actually implanted her (continuous ambulatory peritoneal dialysis) CAPD catheter just about a year ago. The patient reports that starting on about 08/23/2018 she noted the onset of discomfort in her right upper quadrant. She reported that this has been present affectively continuously. She has noted, particularly more recently some nausea and vomiting. She has had diarrhea also for a while now. She had been seen at [facility] early in the course of her discomfort. She reports that she had an ultrasound done at [place] that showed gallstones. She was then transferred from [place] to [place] for further evaluation and treatment. She had a nuclear biliary scan at [place]. She was treated with antibiotics. She reports that she was told that her problem was from the gallbladder. She stayed in the hospital for about 3 days and was discharged home on about 4 days of oral antibiotics, which she took. Initially, she saw some improvement of the discomfort but the discomfort then returned and persisted. It has become more severe recently. She does not note any significant difference with food intake but her diet has been significantly off because of the nausea. There is some mild increase in her discomfort with movement. She returned to the emergency department this time at [facility] on the afternoon of 09/11/2018 and was admitted by the hospitalist for management. She was evaluated with a CT scan, which suggested the presence of some cholelithiasis but there was no evidence of acute cholecystitis. Her kidneys appeared atrophic and she had some free air felt to be consistent with air entrapment from her peritoneal dialysis. Because of her persistent discomfort, I am asked now to evaluate her. MEDICATIONS: Are as listed in her medical record. ALLERGIES: Reported to [facility]. PAST SURGICAL HISTORY: Significant for a cardiac catheterization with stent placement in 2016. She has had a hysterectomy. She has had a chest tube placed in 2016 for pleural effusion. At that time, she also underwent several episodes of paracentesis for ascites. She has undergone a section. She has had a tubal ligation. She had a left upper extremity arteriovenous fistula that was placed, but then ligated because of a steal syndrome. She has had a right lower extremity graft placed as well. Her CAPD catheter was placed just about a year ago. MEDICAL HISTORY: Significant for her end-stage renal disease. She has diabetes type 2, hypertension, hyperlipidemia, systolic congestive heart failure with a reduced ejection fraction, some peripheral vascular disease, chronic anemia, peripheral neuropathy, hypothyroidism. PHYSICAL EXAMINATION: The patient is alert and oriented. Most recent vital signs show her to be afebrile with pulse of 79 and a blood pressure of 142/84. Her sclerae are anicteric. Skin is warm and dry. The neck is supple. Heart exam shows a regular rhythm and she is not tachycardiac. The lungs are clear to auscultation. The abdomen is flat. She has some scarring consistent with her prior surgery. She has bowel sounds present. The abdomen is soft throughout. She has some mild tenderness in the upper abdomen, which may be slightly worse on the right than left. No masses appreciated. She has no guarding or rebound. I do not identify a definite hernia. Laboratory studies from today include a complete blood count (CBC) showing a white count of 8.6, which was 11.7 yesterday. Hemoglobin is 10 with hematocrit of 32 and the platelet count is 132,000. Her chemistry profile shows normal electrolytes with BUN of 39 and a creatinine of 14.4. Her liver function tests are normal and her total protein and albumin are low at 5.4 and 2.3, respectively. CT imaging I reviewed personally. She has some free air, which is not surprising. The reported gallstones in the gallbladder are fairly subtle as I do not see any distinct calcifications contained within the gallbladder. There is no sign of bile duct dilation. The gallbladder appears to be thin-walled without any surrounding inflammation. IMPRESSION: Approximately 2-1/2-week history of right upper quadrant pain, which has been fairly persistent. She reportedly was found to have gallstones at [facility] several weeks ago and was seen in [place] where a nuclear scan was done. I have no results from this, but she was continued on antibiotics for about a week. She initially had some improvement with the antibiotics but this then faded with persistent pain now worsening. I am not at this point convinced that her discomfort is from her gallbladder. She reportedly has gallstones, though these are not readily apparent on her current CT scan. The gallbladder itself does not appear acutely inflamed. Her history of pain with persistent discomfort over such a long period of time is not typical of biliary colic or really acute cholecystitis. I would be somewhat concerned that she may have some other issue at that this time undetermined but responsible for her discomfort. RECOMMENDATIONS: I spoke with Dr. Garber about my findings and concerns. I recommended that she have an evaluation by gastroenterology to address her discomfort. They might also weigh in on the possibility that her discomfort is related to gallbladder issues. At this point, I would not recommend proceeding directly to a cholecystectomy. I will follow along during her stay and see what may develop. LESVIA
[2018-09-13] MEDS: POTASSIUM CHLORIDE 10 MEQ SR TABLET PO SCH (09:30)
[2018-09-13] MEDS ORDERED: LIDOCAINE 2% INJ 100 MG/5 ML SDV (FOR ANES.) As Ordered ONE (12:17)
[2018-09-13] MEDS ORDERED: PROPOFOL 200 MG/20 ML VIAL As Ordered ONE (12:17)
[2018-09-13 13:00] VITALS: BP 148/67
[2018-09-13] MEDS ORDERED: NS 1,000 ML IV SCH (14:30)
[2018-09-13] MEDS ORDERED: fentaNYL 100 MCG/2 ML INJECTION (J3010) As Ordered ONE (15:02)
--- NOTE | 2018-09-13 15:17 | ROOR ---
Patient Name: Subha Trivedi Procedure Date: 09/13/2018 2:56 PM Date of : 1970 Age: 48 Room: [facility] Gender: Female Note Status: Finalized Procedure: Upper Endoscopy + Biopsies Indications: Abdominal pain in the right upper quadrant, Heartburn Providers: Clint Wilson MD Referring MD: CHHAYA THAKUR NP Requesting Provider: Medicines: Monitored Anesthesia Care Complications: No immediate complications. Procedure: Pre-Anesthesia Assessment: - The heart rate, respiratory rate, oxygen saturations, blood pressure, adequacy of pulmonary ventilation, and response to care were monitored throughout the procedure. The Endoscope was introduced through the mouth, and advanced to the second part of duodenum. The upper GI endoscopy was accomplished without difficulty. The patient tolerated the procedure well. Findings: The Z-line was irregular and was found 35 cm from the incisors. Moderately severe esophagitis with no bleeding was found 30 to 35 cm from the incisors. Biopsies were taken with a cold forceps for histology. No other significant abnormalities were identified in a careful examination of the stomach. The exam of the duodenum was otherwise normal. Impression: - Z-line irregular, 35 cm from the incisors. - Moderately severe erosive esophagitis. Biopsied. - The examination was otherwise normal. Recommendation: - Await pathology results. - Return patient to [facility] for ongoing care. - Follow an antireflux regimen. - Use Prilosec (omeprazole) 40 mg PO BID. - Use sucralfate tablets 1 gram PO QID. - Await pathology results. - Telephone GI clinic for pathology results in 1 week. - The findings and recommendations were discussed with the referring physician. Clint Wilson MD Clint Wilson MD 09/13/2018 3:17:37 PM Electronically signed by Clint Wilson MD Number of Addenda: 0 Note Initiated On: 09/13/2018 2:56 PM Estimated Blood Loss: Estimated blood loss: none.
[2018-09-13] MEDS: MEROPENEM INJ 1 GM in APPROPRIATE DILUENT 1 EA IV SCH (16:06)
[2018-09-13] MEDS: SUCRALFATE 1 GM TAB PO SCH ×2 (16:59→20:47)
[2018-09-13 18:00] VITALS: BP 138/52
--- NOTE | 2018-09-13 18:12 | IPNPDOC ---
Subjective Date Seen The patient was seen on 09/13/18. Subjective Chief Complaint/HPI Abdominal pain, nausea, vomiting Events since last encounter Patient reports she is still having right upper quadrant abdominal pain as well as some nausea with some heartburn but no vomiting. Unable to take some occasional liquid sips. Still having some diarrheacouple of episodes yesterday. Nonbloody. No associated fevers/chills/sweats. No chest pain/shortness of breath except on the heartburn gets bad Objective Physical Examination General Exam: Positive: Alert, Cooperative, No Acute Distress, Other (lying in bed) Eye Exam: Positive: PERRLA ENT Exam: Positive: Mucous membr. moist/pink Chest Exam: Positive: Clear to auscultation, Normal air movement; Negative: Rales, Rhonchi, Wheezing Heart Exam: Positive: Rate Normal, Normal S1, Normal S2; Negative: Tachycardic Abdomen Exam: Positive: BS Hypoactive, Soft, Tenderness (tender in right upper quadrant. No guarding or rigidity.) Extremity Exam: Positive: Other (peripheral pulses are palpable); Negative: Edema, Swelling Skin Exam: Negative: Rash Neuro Exam: Positive: Other (awake, alert, oriented 3 and answering questions appropriately) Assessment /Plan Assessment EGD 09/13/18: Impression: - Z-line irregular, 35 cm from the incisors. - Moderately severe erosive esophagitis. Biopsied. - The examination was otherwise normal. Intractable abdominal pain, nausea, vomiting rule out spontaneous bacterial peritonitis in setting of peritoneal dialysis catheter: -Dialysate fluid culture pending -Patient on IV meropenem day 3 - if cultures come back negative, I expect that we should be able to discontinue the IV meropenem -Patient was seen by Dr. Hoff from surgerygallbladder etiology seems less likely -Patient was seen by Dr. Wilson from breast oncologypatient is status post EGD 09/13/18findings show moderately severe erosive esophagitis - this could certainly be contributing to the patient's symptoms -Recommends Prilosec 40 mg twice daily as well as Carafate 1 g oral 4 times a day. -Patient will need to call GI clinic in one week to follow up on results of pathology from biopsies sent EGD -Lipase was normalless likely to be pancreatitis -Full liquid diet -Ct prn morphine, prn Zofran End-stage renal disease on peritoneal dialysis: -Peritoneal Dialysis per nephrology Chronic systolic congestive heart failure baseline ejection fraction 25-30%: -Continue metoprolol, lisinopril. Diabetes mellitus type 2 on long-term insulin therapy complicated by diabetic neuropathy as well as retinopathy: -Hold long-acting insulin given patient's nausea and vomiting -Continue sliding scale insulin alonefingersticks appear controlled Uncontrolled hypertension: -Improved -Continue metoprolol, lisinopril and Imdur -When necessary IV hydralazine Hypothyroidism: -Levothyroxine GI/DVT PPX: -PPI/subcutaneous heparin Plan/VTE VTE Prophylaxis Ordered?: Yes VS, I&O, 24H, Fishbone Vital Signs/I&O Vital Signs Date Time Temp Pulse Resp B/P (MAP) Pulse Ox O2 Delivery O2 Flow Rate FiO2 09/13/18 15:40 66 18 142/66 (91) 95 09/13/18 15:20 97.4 09/11/18 18:45 Room Air I&O- Last 24 Hours up to 6 AM 09/13/18 06:00 Intake Total 33899 ml Output Total 38435 ml Balance -230 ml Laboratory Data 24H LABS Laboratory Tests 2 09/12/18 18:28: Bedside Glucose (Misc Panel) 108H 09/12/18 20:56: Bedside Glucose (Misc Panel) 86 09/13/18 02:56: Bedside Glucose (Misc Panel) 169H 09/13/18 06:00: Body Fluid Source PERITONEAL DIALYSATE, Body Fluid WBC (Auto) 8, Body Fluid RBC (Auto) < 2, Peritoneal Fluid Color COLORLESS, Peritoneal Fluid Appearance CLEAR 09/13/18 06:29: Immature Granulocyte % (Auto) 0.3, White Blood Count 7.8, Red Blood Count 3.81L, Hemoglobin 11.6L, Hematocrit 37.3, Mean Corpuscular Volume 97.9H, Mean Corpuscular Hemoglobin 30.4, Mean Corpuscular Hemoglobin Concent 31.1L, Red Cell Distribution Width 15.9H, Platelet Count 109L, Neutrophils (%) (Auto) 84.5H, Lymphocytes (%) (Auto) 9.1L, Monocytes (%) (Auto) 5.0, Eosinophils (%) (Auto) 0.5, Basophils (%) (Auto) 0.6, Neutrophils # (Auto) 6.6, Lymphocytes # (Auto) 0.7L, Monocytes # (Auto) 0.4, Eosinophils # (Auto) 0.0, Basophils # (Auto) 0.1, Nucleated Red Blood Cells % (auto) 0.0, Anion Gap 10, Glomerular Filtration Rate 3.4L, Blood Urea Nitrogen 33H, Creatinine 12.70*H, Sodium Level 139, Potassium Level 3.3L, Chloride Level 102, Carbon Dioxide Level 27, Calcium Level 7.9L, Phosphorus Level 4.9, Aspartate Amino Transf (AST/SGOT) 18, Alanine Aminotransferase (ALT/SGPT) 11L, Alkaline Phosphatase 77, Total Bilirubin 0.9, Total Protein 5.8L, Albumin 2.4L, Magnesium Level 2.3, Albumin/Globulin Ratio 0.71L 09/13/18 11:58: Bedside Glucose (Misc Panel) 118H 09/13/18 16:32: Bedside Glucose (Misc Panel) 112H CBC/BMP Laboratory Tests 09/13/18 06:29 Red Blood Count 3.81 L, Mean Corpuscular Volume 97.9 H, Mean Corpuscular Hem oglobin 30.4, Mean Corpuscular Hemoglobin Concent 31.1 L, Red Cell Distribution Width 15.9 H, Neutrophils (%) (Auto) 84.5 H, Lymphocytes (%) (Auto) 9.1 L, Monocytes (%) (Auto) 5.0, Eosinophils (%) (Auto) 0.5, Basophils (%) (Auto) 0.6, Neutrophils # (Auto) 6.6, Lymphocytes # (Auto) 0.7 L, Monocytes # (Auto) 0.4, Eosinophils # (Auto) 0.0, Basophils # (Auto) 0.1, Calcium Level 7.9 L, Phosphorus Level 4.9, Aspartate Amino Transf (AST/SGOT) 18, Alanine Aminotransferase (ALT/SGPT) 11 L, Alkaline Phosphatase 77, Total Bilirubin 0.9, Total Protein 5.8 L, Albumin 2.4 L Microbiology Microbiology 09/13/18 Body Fluid Culture, Received Pending 09/12/18 Gram Stain - Final, Resulted 09/12/18 Body Fluid Culture, Resulted Pending 09/13/18 Stool Lactoferrin - Final, Complete 09/13/18 Gastrointestinal Tract Panel (PCR) - Final, Complete SHERRI REILLY MD September 13, 2018 18:12
[2018-09-13] MEDS: PANTOPRAZOLE 40MG TAB (PROTONIX) PO SCH (20:47)
[2018-09-13 22:00] VITALS: BP 132/70
--- NOTE | 2018-09-13 23:14 | IPN ---
DATE: 09/13/2018 SUBJECTIVE The patient was seen and examined at the bedside today morning. The patient is afebrile, her blood pressures are slightly elevated. She continues to complain of pain in the right upper quadrant. The patient does report that when she gets the filling for the peritoneal dialysis, the pain in the right upper quadrant gets worse. She is going to have the esophagogastroduodenoscopy (EGD) done by GI service today. OBJECTIVE Vital signs: Temperature is 97.6 degrees Fahrenheit, blood pressure 148/67, pulse is 66, respiratory rate of 12, saturating 98% on room air. Intake and output: Urine output recorded as only 2 liters. Patient is getting peritoneal dialysis exchanges. Weight on the bed scale is 67.8 kg. PHYSICAL EXAMINATION: General: The patient is awake, alert, oriented times three, laying in bed. Mild painful distress. Head and neck examination: Extraocular muscles intact. Pupils equally round and reactive to light. Mucous membranes are moist. Neck is supple. There is no JVD. Cardiovascular: S1, S2, regular rate. No edema of the bilateral lower extremities. Respiratory: Chest is clear to auscultation bilaterally. Bilateral equal air entry. No rales or rhonchi. Abdomen: Soft. Positive bowel sounds. Moderate amount of tenderness in the right upper quadrant. Left lower quadrant peritoneal dialysis catheter. Musculoskeletal: No clubbing or cyanosis. Pulses are 2+. CANOPY INSPECTOR: No focal deficit. Power is 5/5 in all extremities. LAB REVIEW: CBC showed a WBC of 7.8, hemoglobin 11.6, platelets of 109. Peritoneal fluid cell count is 8. BMP showed sodium 139, potassium 3.3, chloride 102, bicarb 27, BUN 33, creatinine is 12.7, albumin is 2.4. CURRENT INPATIENT MEDICATIONS The patient's medications were all reviewed by me. She continues to be on IV meropenem. She has been started on Protonix 40 mg by mouth twice a day. She has also been started on Carafate. No other change in the medications today as compared with yesterday. EGD FINDINGS: Patient had moderately severe erosive esophagitis which was biopsied. ASSESSMENT/PLAN 1. End-stage renal disease on peritoneal dialysis. Continue current regimen of 5 manual exchanges, all 2 liters, all 1.5%. Volume status is optimal. 2. Intractable right upper quadrant pain. The patient got the EGD done today which only showed erosive esophagitis. She continues to be on IV antibiotics. She has been started on oral Protonix and Carafate. 3. Chronic systolic congestive heart failure. Volume status is optimal. Continue metoprolol, lisinopril and isosorbide. Continue current peritoneal dialysis regimen. 4. Hypertension with end-stage renal disease. Continue current dose of hydralazine as needed (p.r.n.) along with lisinopril, isosorbide and metoprolol. 5. Hypokalemia. The patient was given a dose of potassium chloride today morning.
[2018-09-13 23:38] LABS: SPEC. GRAVITY BODY FLUIDS 1.006 (NOT ESTABLISHED)
[2018-09-14 00:13] LABS: SOURCE, BODY FLUID ALBUMIN PERITONEAL; SOURCE, BODY FLUID GLUCOSE PERITONEAL; SOURCE, BODY FLUID TOT PROTEIN PERITONEAL; TOTAL PROTEIN, BODY FLUID 0.1 G/DL (NOT ESTABLISHED)
[2018-09-14 00:25] LABS: APPEARANCE, BODY FLUID HAZY (CLEAR); PERITONEAL FL COLOR PINK (COLORLESS); SOURCE, BODY FLUID PERITONEAL
--- NOTE | 2018-09-14 00:59 | REPVR ---
EXAM: CT Abdomen and Pelvis Without Contrast EXAM DATE/TIME: 09/13/2018 11:08 PM CLINICAL HISTORY: 48 years old, female; Abdominal pain; Localized; Lower; Additional info: Blood tinged peritoneal fluid, lower abdominal pain TECHNIQUE: Imaging protocol: Axial computed tomography images of the abdomen and pelvis without contrast. Coronal and sagittal reformatted images were created and reviewed. Radiation optimization: All CT scans at this facility use at least one of these dose optimization techniques: automated exposure control; mA and/or kV adjustment per patient size (includes targeted exams where dose is matched to clinical indication); or iterative reconstruction. COMPARISON: CT ABD PELVIS W/O CONTRAST 09/11/2018 2:18 PM FINDINGS: Lungs: Linear atelectasis or scarring at the left base. Pleural space: Small right pleural effusion with adjacent compressive atelectasis. Mediastinum: Small hiatal hernia. ABDOMEN: Liver: Mild hepatomegaly. Gallbladder and bile ducts: Cholelithiasis. No specific evidence of acute cholecystitis. Pancreas: Normal. No ductal dilation. Spleen: Normal. No splenomegaly. Adrenals: Normal. No mass. Kidneys and ureters: Nonspecific bilateral perinephric fat stranding. Simple right parapelvic renal cyst. Stomach and bowel: No bowel obstruction. Appendix: No evidence of appendicitis. PELVIS: Bladder: Unremarkable as visualized. Reproductive: Unremarkable as visualized. ABDOMEN and PELVIS: Intraperitoneal space: Interval development of moderate to large ascites. Redemonstration of pneumoperitoneum likely related to peritoneal dialysis catheter. Perforated hollow viscus cannot be entirely excluded. Clinical correlation is advised. Bones/joints: No acute fracture. No dislocation. Soft tissues: Mild anasarca. Vasculature: Atherosclerotic of the coronary arteries. Atherosclerotic disease of the abdominal aorta. Lymph nodes: Normal. No enlarged lymph nodes. IMPRESSION: Redemonstration of pneumoperitoneum likely related to peritoneal dialysis catheter. Perforated hollow viscus cannot be entirely excluded. Clinical correlation is advised. Interval development of moderate to large ascites. Interval increase in right pleural effusion. Suspect volume overload. Cholelithiasis. No specific evidence of acute cholecystitis. COMMENT: Consistent with the [employer]'s Incidental Findings Committee Report (J Am Christina Radiol 2010): Unless the patient's specific circumstances suggest otherwise, any liver lesion 0.5 cm or less, any cystic kidney lesion less than 1.0 cm, and/or any adrenal lesion 1.0 cm or less not otherwise characterized in this report as possessing suspicious or indeterminate imaging features is/are highly likely to be benign and do not require follow-up imaging or biopsy. Electronically signed by: Niall Sauceda On 09/14/2018 00:58:57 AM
[2018-09-14] MEDS: MORPHINE 4 MG/ML 1ML VIAL/SYRINGE (J2270) IV PRN ×3 (02:28→20:18)
[2018-09-14] MEDS: GENTAMICIN SULFATE 0.1% OINT 15 GM TOP SCH ×2 (02:51→20:20)
[2018-09-14 05:13] LABS: BASO # 0.1 10^3/uL (0.0-0.2); BASO % 0.9 % (0.0-1.0); EOS # 0.4 10^3/uL (0.0-0.50); EOS % 5.1 % (0.0-3.0); HEMATOCRIT 33.9 % (36.0-47.0); HEMOGLOBIN 10.5 g/dl (12.0-15.5); LYMPH # 1.4 10^3/uL (1.5-4.5); LYMPH % 20.5 % (24.0-44.0); MEAN CORPUSCULAR HEMOGLOBIN 30.2 pg (27.0-33.0); MEAN CORPUSCULAR VOLUME 97.4 fl (80.0-96.0); MONO # 0.7 10^3/uL (0.0-0.8); MONO % 9.4 % (0.0-5.0); NEUTROPHILS # 4.4 10^3/uL (1.8-7.7); NEUTROPHILS % 63.7 % (36.0-66.0); PLATELET COUNT, AUTOMATED 103 10^3/uL (150-450); RED BLOOD COUNT 3.48 10^6/uL (4.00-5.40); WHITE BLOOD COUNT 6.9 10^3/uL (4.0-10.0)
[2018-09-14 05:57] LABS: CREATININE FOR GFR 11.8 MG/DL (0.55-1.30); GLOMERULAR FILTRATION RATE 3.7 (>58); MAGNESIUM LEVEL 2.1 MG/DL (1.8-2.4); PHOSPHORUS LEVEL 4.4 MG/DL (2.5-4.9); POTASSIUM SERUM 2.9 MEQ/L (3.5-5.1)
[2018-09-14 06:00] VITALS: BP 122/58
[2018-09-14] MEDS: LEVOTHYROXINE 75MCG TABLET (0.075MG) PO SCH (06:23)
[2018-09-14] MEDS: HumaLOG INSULIN (NovoLOG) PER UNIT SC SCH ×5 (07:30→20:23)
[2018-09-14] MEDS: POTASSIUM CHLORIDE 10 MEQ SR TABLET PO SCH ×3 (07:41→10:01)
[2018-09-14] MEDS: SUCRALFATE 1 GM TAB PO SCH ×4 (07:42→20:18)
[2018-09-14 09:00] VITALS: BP 148/60
[2018-09-14] MEDS: HEPARIN SOD (PORCINE) 5000 UNITS/ML VIAL SC SCH ×2 (09:03→20:19)
[2018-09-14 09:42] LABS: APPEARANCE, BODY FLUID CLEAR (CLEAR); PERITONEAL DIALYSATE FL COLOR COLORLESS (COLORLESS); SOURCE, BODY FLUID PERITONEAL DIALYSATE
[2018-09-14] MEDS: PRENATAL VITAMINS CHEWABLE TABLET PO SCH (10:00)
[2018-09-14] MEDS ORDERED: HEPARIN SOD (PORCINE) 5000 UNITS/ML VIAL XX ONE (10:00)
[2018-09-14] MEDS: CALCITRIOL 0.25 MCG CAP (S0169) PO SCH (10:02)
[2018-09-14] MEDS: ISOSORBIDE MON. (IMDUR) 30 MG XR TAB PO SCH (10:03)
[2018-09-14] MEDS: LISINOPRIL 10 MG TAB PO SCH (10:05)
[2018-09-14] MEDS: PANTOPRAZOLE 40MG TAB (PROTONIX) PO SCH ×2 (10:06→20:18)
[2018-09-14] MEDS: METOPROLOL TART 25 MG TABLET PO SCH ×2 (10:07→20:18)
--- NOTE | 2018-09-14 10:57 | IPNPDOC ---
Text Note Date of Service The patient was seen on 09/14/18. NOTE Patient has been having some problems with her peritoneal dialysis catheter in overnight reported to have some bloody-appearing drainage and also having difficulty instilling the dialysate. She is admitted in the hospital for her abdominal pain and patient reports that most of the upper abdominal pain is resolved at this point. She had the upper endoscopy yesterday shows erosive esophagitis. She has been afebrile. On abdominal examination she has a nondistended abdomen, peritoneal dialysis catheter intact. Nontender on palpation. Impression and plans Malfunctioning peritoneal dialysis catheter Abdominal pain I spoke to Dr. Bechkam, he will try to open up the peritoneal dialysis catheter by instilling heparin to the brachial reports the fibrin within the tube. She does not have any signs of infection of her peritoneal dialysis catheter, no secondary peritonitis signs. He'll call us back if this continued to malfunction and the PD catheter needs removal. VS,Fishbone, I+O VS, Fishbone, I+O Laboratory Tests 09/14/18 04:52 Red Blood Count 3.48 L, Mean Corpuscular Volume 97.4 H, Mean Corpuscular Hemoglobin 30.2, Mean Corpuscular Hemoglobin Concent 31.0 L, Red Cell Distribution Width 15.8 H, Neutrophils (%) (Auto) 63.7, Lymphocytes (%) (Auto) 20.5 L, Monocytes (%) (Auto) 9.4 H, Eosinophils (%) (Auto) 5.1 H, Basophils (%) (Auto) 0.9, Neutrophils # (Auto) 4.4, Lymphocytes # (Auto) 1.4 L, Monocytes # (Auto) 0.7, Eosinophils # (Auto) 0.4, Basophils # (Auto) 0.1, Calcium Level 8.0 L Vital Signs Date Time Temp Pulse Resp B/P (MAP) Pulse Ox O2 Delivery O2 Flow Rate FiO2 09/14/18 10:05 148/60 09/14/18 09:15 18 09/14/18 06:00 98.2 70 93 09/11/18 18:45 Room Air I&O- Last 24 Hours up to 6 AM 09/14/18 06:00 Intake Total 6560 ml Output Total 6600 ml Balance -40 ml CAROLINE CANELA MD Sep 14, 2018 10:57
[2018-09-14] MEDS ORDERED: HEPARIN 1,000 UNITS/ML 10ML VIAL (FOR RADIOLOGY& DIALYSIS ONLY) IP ONE (11:00)
[2018-09-14] MEDS: MEROPENEM INJ 1 GM in APPROPRIATE DILUENT 1 EA IV SCH (13:37)
[2018-09-14 14:00] VITALS: BP 142/70
[2018-09-14 15:20] LABS: CALCIUM LEVEL 7.9 MG/DL (8.5-10.1); GLOMERULAR FILTRATION RATE 3.6 (>58); POTASSIUM SERUM 3.8 MEQ/L (3.5-5.1)
--- NOTE | 2018-09-14 16:48 | IPNPDOC ---
Subjective Date Seen The patient was seen on 09/14/18. Subjective Chief Complaint/HPI Abdominal pain, nausea and vomiting Events since last encounter The patient had problems 100 with bloody return from her peritoneal dialysis catheter. Early this morning, she also had problems with infusion of the dialysateit took much longer than usual. The return was less bloody but also seemed more fibrinous. Currently, the patient reports a right upper quadrant abdominal pain seems improved however now she is having some crampy bilateral lower quadrant abdominal pain on and off. Reports she still has some heartburn but no nausea/vomiting. Denies any overnight fevers. No constipation. Able to ambulate. Tolerating oral liquid intake. Objective Physical Examination General Exam: Positive: Alert, Cooperative, No Acute Distress, Other (lying in bed) Eye Exam: Positive: PERRLA ENT Exam: Positive: Mucous membr. moist/pink Chest Exam: Positive: Clear to auscultation, Normal air movement; Negative: Rales, Rhonchi, Wheezing Heart Exam: Positive: Rate Normal, Normal S1, Normal S2; Negative: Tachycardic Abdomen Exam: Positive: Normal bowel sounds, Soft, Tenderness (slight bilateral lower quadrant abdominal tenderness. No guarding or rigidity. Improved tenderness in the right upper quadrantno guarding or rigidity.) Extremity Exam: Negative: Edema Skin Exam: Negative: Rash Neuro Exam: Positive: Other (awake, alert, oriented 3, answering questions appropriately) Assessment /Plan Assessment Intractable abdominal pain, nausea, vomiting suspect secondary to esophagitis, rule out spontaneous bacterial peritonitis in setting of peritoneal dialysis c atheter: -Dialysate fluid culture pending -Patient on IV meropenem day 4 - if cultures come back negative, I expect that we should be able to discontinue the IV meropenem -Patient was seen by Dr. Hoff from surgerygallbladder etiology seems less likely -Patient was seen by Dr. Wilson from [facility] is status post EGD 09/13/18findings show moderately severe erosive esophagitis - this could c ertainly be contributing to the patient's symptoms -Ct Prilosec 40 mg twice daily as well as Carafate 1 g oral 4 times a day. -Patient will need to call GI clinic in one week to follow up on results of pathology from biopsies sent EGD -Lipase was normalless likely to be pancreatitis -Full liquid diet - advance to renal/carb consistent diet as tolerated -Ct prn morphine, prn Zofran End-stage renal disease on peritoneal dialysis with malfunctioning PD catheter: -Case was discussed with Dr. Yost as well as Dr Mcdaniel -Plan is to try to attempt heparin instillation through the PD catheter to see if this will restore the function. -Otherwise, patient may require removal of the PD catheter - Dr. Mcdaniel spoke with Dr Bunch earlier today regarding the same - consulted Dr Bunch to evaluate the catheter as well and see if it would need to be removed - if PD cath needs removal, we will have to ensure that patient's right groin AV graft is working Hypokalemia: -Replete and recheck Chronic systolic congestive heart failure baseline ejection fraction 25-30%: -Continue metoprolol, lisinopril. Diabetes mellitus type 2 on long-term insulin therapy complicated by diabetic neuropathy as well as retinopathy: -Hold long-acting insulin given patient's nausea and vomiting -Continue sliding scale insulin alonefingersticks a little low this morningdiet was advanced however as patient reports feeling a little hungry. Also reduced the sliding scale insulin coverage. Uncontrolled hypertension: -Now controlled -Continue metoprolol, lisinopril and Imdur Hypothyroidism: -Continue Levothyroxine GI/DVT PPX: -PPI/subcutaneous heparin Plan/VTE VTE Prophylaxis Ordered?: Yes VS, I&O, 24H, Fishbone Vital Signs/I&O Vital Signs Date Time Temp Pulse Resp B/P (MAP) Pulse Ox O2 Delivery O2 Flow Rate FiO2 09/14/18 14:00 97.1 67 17 142/70 (94) 98 09/11/18 18:45 Room Air I&O- Last 24 Hours up to 6 AM 09/14/18 06:00 Intake Total 6560 ml Output Total 6600 ml Balance -40 ml Laboratory Data 24H LABS Laboratory Tests 2 09/13/18 19:53: Bedside Glucose (Misc Panel) 151H 09/13/18 23:15: Body Fluid Specific [place] 1.006, Body Fluid WBC (Auto) 12H, Body Fluid RBC (Auto) 4, Body Fluid Mononuclear Cells % Auto 66.7H, Fluid Polymorphonuclear Cell % Auto 33.3H, Body Fluid Glucose Source PERITONEAL, Body Fluid Glucose 414, Body Fluid Protein Source PERITONEAL, Body Fluid Total Protein 0.1, Body Fluid Albumin Source PERITONEAL, Body Fluid Albumin 0.0, Peritoneal Fluid Source P ERITONEAL, Peritoneal Fluid Color PINK, Peritoneal Fluid Appearance HAZY 09/14/18 04:52: Immature Granulocyte % (Auto) 0.4, White Blood Count 6.9, Red Blood Count 3.48L, Hemoglobin 10.5L, Hematocrit 33.9L, Mean Corpuscular Volume 97.4H, Mean Corpuscular Hemoglobin 30.2, Mean Corpuscular Hemoglobin Concent 31.0L, Red Cell Distribution Width 15.8H, Platelet Count 103L, Neutrophils (%) (Auto) 63.7, Lymphocytes (%) (Auto) 20.5L, Monocytes (%) (Auto) 9.4H, Eosinophils (%) (Auto) 5.1H, Basophils (%) (Auto) 0.9, Neutrophils # (Auto) 4.4, Lymphocytes # (Auto) 1.4L, Monocytes # (Auto) 0.7, Eosinophils # (Auto) 0.4, Basophils # (Auto) 0.1, Nucleated Red Blood Cells % (auto) 0.0, Anion Gap 9, Glomerular Filtration Rate 3.7L, Blood Urea Nitrogen 31H, Creatinine 11.80*H, Sodium Level 139, Potassium Level 2.9*L, Chloride Level 101, Carbon Dioxide Level 29, Calcium Level 8.0L, Phosphorus Level 4.4, Magnesium Level 2.1 09/14/18 05:58: Bedside Glucose (Misc Panel) 100 09/14/18 08:30: Body Fluid Source PERITONEAL DIALYSATE, Body Fluid WBC (Auto) 12H, Body Fluid RBC (Auto) < 2, Body Fluid Mononuclear Cells % Auto 75.0H, Fluid Polymorphonuclear Cell % Auto 25.0H, Peritoneal Fluid Color COLORLESS, Peritoneal Fluid Appearance CLEAR 09/14/18 10:59: Bedside Glucose (Misc Panel) 120H 09/14/18 13:27: Bedside Glucose (Misc Panel) 112H 09/14/18 14:52: Anion Gap 8, Glomerular Filtration Rate 3.6L, Blood Urea Nitrogen 29H, Creatinine 12.00*H, Sodium Level 139, Potassium Level 3.8#, Chloride Level 102, Carbon Dioxide Level 29, Calcium Level 7.9L 09/14/18 16:27: Bedside Glucose (Misc Panel) 52L CBC/BMP Laboratory Tests 09/14/18 04:52 Red Blood Count 3.48 L, Mean Corpuscular Volume 97.4 H, Mean Corpuscular Hemoglobin 30.2, Mean Corpuscular Hemoglobin Concent 31.0 L, Red Cell Distribution Width 15.8 H, Neutrophils (%) (Auto) 63.7, Lymphocytes (%) (Auto) 20.5 L, Monocytes (%) (Auto) 9.4 H, Eosinophils (%) (Auto) 5.1 H, Basophils (%) (Auto) 0.9, Neutrophils # (Auto) 4.4, Lymphocytes # (Auto) 1.4 L, Monocytes # (Auto) 0.7, Eosinophils # (Auto) 0.4, Basophils # (Auto) 0.1, Calcium Level 8.0 L 09/14/18 14:52 Calcium Level 7.9 L Microbiology Microbiology 09/13/18 Acid Fast Stain, Received Pending 09/13/18 Mycobacterial Culture, Received Pending 09/13/18 Fungal Smear, Received Pending 09/13/18 Fungal Culture, Received Pending 09/13/18 Gram Stain - Final, Resulted 09/13/18 Body Fluid Culture, Resulted Pending 09/13/18 Anaerobic Culture, Resulted Pending 09/13/18 Body Fluid Culture, Received Pending 09/12/18 Gram Stain - Final, Complete 09/12/18 Body Fluid Culture - Final, Complete 09/13/18 Stool Lactoferrin - Final, Complete 09/13/18 Gastrointestinal Tract Panel (PCR) - Final, Complete SHERRI REILLY MD Sep 14, 2018 16:48
[2018-09-14 22:00] VITALS: BP 142/62
[2018-09-15] MEDS: ACETAMINOPHEN TAB 650MG DOSE (2X325MG) PO PRN (03:59)
[2018-09-15] MEDS: LEVOTHYROXINE 75MCG TABLET (0.075MG) PO SCH (05:37)
[2018-09-15 05:39] LABS: BASO # 0.1 10^3/uL (0.0-0.2); BASO % 0.9 % (0.0-1.0); EOS # 0.3 10^3/uL (0.0-0.50); EOS % 4.2 % (0.0-3.0); HEMATOCRIT 34.4 % (36.0-47.0); HEMOGLOBIN 10.7 g/dl (12.0-15.5); LYMPH # 1.3 10^3/uL (1.5-4.5); LYMPH % 19.3 % (24.0-44.0); MEAN CORPUSCULAR HEMOGLOBIN 30.7 pg (27.0-33.0); MEAN CORPUSCULAR HGB CONC 31.1 g/dl (32.0-36.5); MEAN CORPUSCULAR VOLUME 98.6 fl (80.0-96.0); MONO # 0.6 10^3/uL (0.0-0.8); MONO % 8.6 % (0.0-5.0); NEUTROPHILS # 4.6 10^3/uL (1.8-7.7); NEUTROPHILS % 66.6 % (36.0-66.0); RED BLOOD COUNT 3.49 10^6/uL (4.00-5.40); WHITE BLOOD COUNT 6.8 10^3/uL (4.0-10.0)
[2018-09-15 05:49] LABS: PLATELET COUNT, AUTOMATED 93 10^3/uL (150-450)
[2018-09-15 06:00] VITALS: BP 118/58
[2018-09-15 06:08] LABS: CALCIUM LEVEL 7.9 MG/DL (8.5-10.1); GLOMERULAR FILTRATION RATE 3.3 (>58); MAGNESIUM LEVEL 2.1 MG/DL (1.8-2.4); PHOSPHORUS LEVEL 4.1 MG/DL (2.5-4.9); POTASSIUM SERUM 4.2 MEQ/L (3.5-5.1)
[2018-09-15] MEDS: HumaLOG INSULIN (NovoLOG) PER UNIT SC SCH ×4 (07:30→21:00)
[2018-09-15] MEDS: CALCITRIOL 0.25 MCG CAP (S0169) PO SCH (07:59)
[2018-09-15] MEDS: METOPROLOL TART 25 MG TABLET PO SCH ×2 (07:59→20:20)
[2018-09-15] MEDS: PANTOPRAZOLE 40MG TAB (PROTONIX) PO SCH ×2 (07:59→20:20)
[2018-09-15] MEDS: POTASSIUM CHLORIDE 10 MEQ SR TABLET PO SCH (08:00)
[2018-09-15] MEDS: ISOSORBIDE MON. (IMDUR) 30 MG XR TAB PO SCH (08:00)
[2018-09-15] MEDS: SUCRALFATE 1 GM TAB PO SCH ×4 (08:00→20:20)
[2018-09-15] MEDS: PRENATAL VITAMINS CHEWABLE TABLET PO SCH (08:00)
[2018-09-15] MEDS: LISINOPRIL 10 MG TAB PO SCH (08:00)
[2018-09-15] MEDS: NYSTATIN 500,000 U/5 ML SUSP UDC SS SCH ×4 (10:03→20:20)
[2018-09-15] MEDS: CHLORASEPTIC SPRAY MT PRN ×2 (10:03→20:21)
[2018-09-15] MEDS: ONDANSETRON 4MG/2ML VIAL (J2405) IV PRN (10:03)
--- NOTE | 2018-09-15 13:31 | IPNPDOC ---
Subjective Date Seen The patient was seen on 09/15/18. Subjective Chief Complaint/HPI Abdominal pain, nausea and vomiting. The patient is a 48-year-old female with a history of end-stage renal disease currently on peritoneal dialysis who presented to the ER with complains of abdominal pain, nausea, vomiting as well as diarrhea. The patient had been recently admitted at a hospital in [place] and was discharged around August 26at that time, it was thought her symptoms were related to gallstones - she was managed conservatively and was discharged home subsequently. However, she reported having recurrence of the abdominal pain, chiefly in the right upper part of her abdomen. She also reported having problems initially with coffee- ground emesis however, more recently, it has been clear. Also reported associated chills and sweats. She did report diarrhea however this seemed to be chronic and she had not noticed any blood in her stools. Events since last encounter The patient reports she still has some pain involving her right upper quadrant abdomenintermittent. Denies any trouble with vomitingoccasional nauseashe tolerated sandwich yesterday afternoon. She also reports bilateral lower quadran t crampy abdominal pain. Hasn't had a bowel movement todayhad one yesterdayno diarrhea. Patient did not get any further peritoneal dialysis after her catheter was malfunctioning yesterday. Denies any overnight feversdoes report feeling some chills and some sweats. Denies any chest pain. Denies feeling overtly short of breath. Objective Physical Examination General Exam: Positive: Alert, Cooperative, No Acute Distress, Other (lying in bed) Eye Exam: Positive: PERRLA ENT Exam: Positive: Mucous membr. moist/pink Chest Exam: Positive: Other (clear to auscultation bilaterally anteriorly. No wheeze or crackles.) Heart Exam: Positive: Rate Normal, Normal S1, Normal S2; Negative: Tachycardic Abdomen Exam: Positive: Other (soft. Slight tenderness intact per quadrant as well as bilateral lower quadrants. No guarding or rigidity. Peritoneal dialysis catheter in place.) Extremity Exam: Negative: Edema Skin Exam: Negative: Rash Neuro Exam: Positive: Other (awake, alert, oriented 3, answering questions appropriately) Assessment /Plan Assessment Intractable abdominal pain, nausea, vomiting suspect secondary to esophagitis, rule out spontaneous bacterial peritonitis in setting of peritoneal dialysis catheter: -Dialysate fluid culture 09/13- no growth aerobically. Anaerobic cultures pending. -Patient on IV meropenem day 5 - if final cultures come back negative, I expect that we should be able to discontinue the IV meropenem -[facility] -Patient was seen by Dr. Wilson from [facility] is status post EGD 09/13/18findings show moderately severe erosive esophagitis - this could certainly be contributing to the patient's symptoms -Ct Prilosec 40 mg twice daily as well as Carafate 1 g oral 4 times a day. -Patient will need to call GI clinic in one week to follow up on results of pathology from biopsies sent EGD -Lipase was normalless likely to be pancreatitis -Full liquid diet - advance to renal/carb consistent diet as tolerated -Ct prn morphine, prn Zofran End-stage renal disease on peritoneal dialysis with malfunctioning PD catheter: -Case was discussed with Dr. Yost as well as Dr Mcdaniel 09/14/18 -Heparin was given through the PD catheter to see if this were dressed with the patencyhowever, the patient's catheter did not work well even after the heparin instillation. -Patient may require removal of the PD catheter - Dr. Mcdaniel spoke with Dr Bunch - consulted Dr Bunch to evaluate the catheter as well and see if it would need to be removed - if PD cath needs removal, we will have to ensure that patient's right groin AV graft is working to enable hemodialysis Hypokalemia: -Resolved Chronic systolic congestive heart failure baseline ejection fraction 25-30%: -Continue metoprolol, lisinopril. Diabetes mellitus type 2 on long-term insulin therapy complicated by diabetic neuropathy as well as retinopathy: -Hold long-acting insulin given patient's nausea and vomiting -Continue sliding scale insulin alonefingersticks running in the normal [id number]. Uncontrolled hypertension: -Now controlled -Continue metoprolol, lisinopril and Imdur Hypothyroidism: -Continue Levothyroxine GI/DVT PPX: -PPI/subcutaneous heparin Disposition: We will await input from Dr. Bond noted, patient may require removal of PD catheter and may require switching to hemodialysis. We will also need to follow up on the final culture report from peritoneal dialysate fluid. Plan/VTE VTE Prophylaxis Ordered?: Yes VS, I&O, [facility] Vital Signs/I&O Vital Signs Date Time Temp Pulse Resp B/P (MAP) Pulse Ox O2 Delivery O2 Flow Rate FiO2 09/15/18 08:00 144/64 09/15/18 07:59 68 09/15/18 06:00 97.4 17 94 09/11/18 18:45 Room Air I&O- Last 24 Hours up to 6 AM 09/15/18 06:00 Intake Total 3718 ml Output Total 3600 ml Balance 118 ml Laboratory Data 24H LABS Laboratory Tests 2 09/14/18 13:27: Bedside Glucose (Misc Panel) 112H 09/14/18 14:52: Anion Gap 8, Glomerular Filtration Rate 3.6L, Blood Urea Nitrogen 29H, Creatinine 12.00*H, Sodium Level 139, Potassium Level 3.8#, Chloride Level 102, Carbon Dioxide Level 29, Calcium Level 7.9L 09/14/18 16:27: Bedside Glucose (Misc Panel) 52L 09/14/18 17:05: Bedside Glucose (Misc Panel) 72 09/14/18 17:56: Bedside Glucose (Misc Panel) 106H 09/14/18 20:23: Bedside Glucose (Misc Panel) 106H 09/15/18 05:20: Immature Granulocyte % (Auto) 0.4, White Blood Count 6.8, Red Blood Count 3.49L, Hemoglobin 10.7L, Hematocrit 34.4L, Mean Corpuscular Volume 98.6H, Mean Corpuscular Hemoglobin 30.7, Mean Corpuscular Hemoglobin Concent 31.1L, Red Cell Distribution Width 15.8H, Platelet Count 93L, Neutrophils (%) (Auto) 66.6H, Lymphocytes (%) (Auto) 19.3L, Monocytes (%) (Auto) 8.6H, Eosinophils (%) (Auto) 4.2H, Basophils (%) (Auto) 0.9, Neutrophils # (Auto) 4.6, Lymphocytes # (Auto) 1.3L, Monocytes # (Auto) 0.6, Eosinophils # (Auto) 0.3, Basophils # (Auto) 0.1, Nucleated Red Blood Cells % (auto) 0.0, Immature Platelet Fraction 2.0, Anion Gap 7L, Glomerular Filtration Rate 3.3L, Blood Urea Nitrogen 33H, Creatinine 13.00*H, Sodium Level 140, Potassium Level 4.2, Chloride Level 105, Carbon Dioxide Level 28, Calcium Level 7.9L, Phosphorus Level 4.1, Magnesium Level 2.1 09/15/18 11:38: Bedside Glucose (Misc Panel) 88 CBC/BMP Laboratory Tests 09/14/18 14:52 Calcium Level 7.9 L 09/15/18 05:20 Calcium Level 7.9 L, Red Blood Count 3.49 L, Mean Corpuscular Volume 98.6 H, Mean Corpuscular Hemoglobin 30.7, Mean Corpuscular Hemoglobin Concent 31.1 L, Red Cell Distribution Width 15.8 H, Neutrophils (%) (Auto) 66.6 H, Lymphocytes (%) (Auto) 19.3 L, Monocytes (%) (Auto) 8.6 H, Eosinophils (%) (Auto) 4.2 H, Basophils (%) (Auto) 0.9, Neutrophils # (Auto) 4.6, Lymphocytes # (Auto) 1.3 L, Monocytes # (Auto) 0.6, Eosinophils # (Auto) 0.3, Basophils # (Auto) 0.1 Microbiology Microbiology 09/13/18 Acid Fast Stain, Received Pending 09/13/18 Mycobacterial Culture, Received Pending 09/13/18 Fungal Smear, Received Pending 09/13/18 Fungal Culture, Received Pending 09/13/18 Gram Stain - Final, Resulted 09/13/18 Body Fluid Culture, Resulted Pending 09/13/18 Anaerobic Culture, Resulted Pending 09/13/18 Body Fluid Culture - Final, Complete 09/12/18 Gram Stain - Final, Complete 09/12/18 Body Fluid Culture - Final, Complete 09/13/18 Stool Lactoferrin - Final, Complete 09/13/18 Gastrointestinal Tract Panel (PCR) - Final, Complete SHERRI REILLY MD Sep 15, 2018 13:31
[2018-09-15] MEDS: MEROPENEM INJ 1 GM in APPROPRIATE DILUENT 1 EA IV SCH (13:39)
[2018-09-15 14:00] VITALS: BP 115/58
--- NOTE | 2018-09-15 14:35 | IPN ---
DATE: 09/14/2018 SUBJECTIVE: The patient was seen and examined at the bedside today, morning. Last 24-hour events were noted. The patient had bloody drainage with the last night exchange. Peritoneal fluid cell count and culture was again sent. The patient continues to complain of right upper quadrant pain. Peritoneal dialysis dialysate exchange done in the morning showed it was pinkish and blood was clearing. However, when we tried to do the 10:00 a.m. exchange, the fluid was not instilling, only 700 mL of fluid went inside. The patient was complaining of pain and every time she gets her peritoneal dialysate in the abdomen and abdominal distension, she has pain in the right upper quadrant. The patient is getting frustrated, and she is requesting that she does not want to do peritoneal dialysis anymore. She wants the catheter out. She has a working right thigh arteriovenous (AV) graft, and she wants to switch back to hemodialysis now. The patient was seen by surgical service in the morning and by the time she was seen by surgical service, her pain had resolved. Decision was made to try to open the catheter with heparin lock 5000 units. However, despite doing the heparin lock, the patient's previous peritoneal dialysate was not draining, and she was in pain and she did not want to do anymore exchanges. OBJECTIVE: Vital signs: Temperature is 97.1 degrees Fahrenheit, blood pressure 142/70, pulse is 67, respiratory rate of 70, saturating 98% on room air. Intake and output. There is no urine output recorded. Peritoneal dialysate was 3600. Weight on the bed scale is not available. PHYSICAL EXAMINATION: General: The patient is awake, alert, oriented times three, laying in bed, mild painful distress. Head and neck exam: Extraocular muscles intact. Pupils equally round and reactive to light. Mucous membranes are moist. Neck is supple. There is no jugular venous distention (JVD). Cardiovascular: S1, S2, regular rate. No edema of the bilateral lower extremities. Respiratory: Chest is clear to auscultation bilaterally. Bilateral equal air entry. No rales or rhonchi. Abdomen: Soft. Positive bowel sounds. Moderate amount of tenderness in the right upper quadrant. Peritoneal dialysis catheter is in the left lower quadrant, cuff is visible outside the exit site, otherwise there is no purulent discharge. Musculoskeletal: No clubbing or cyanosis. Pulses are 2+. Central Nervous System (WINDOW MAKER): No focal deficit. Power is 5/5 in all extremities. LAB REVIEW: CBC showed a WBC of 6.9, hemoglobin 10.5, platelets are 103. BMP showed sodium 139, potassium 2.9, chloride 101, bicarbonate 29, BUN 31, creatinine is 11.8, calcium is 8, phosphorus 4.4, magnesium 2.1. Peritoneal fluid: WBC in the morning was 12, RBC was less than 2, polymorphonuclears were 25%. IMAGING: A CT scan of the abdomen and pelvis was done overnight without contrast, which showed pneumoperitoneum likely related to peritoneal dialysis catheter. Perforated viscus cannot be entirely excluded, moderate to large ascites with interval increase in the right pleural effusion. CURRENT INPATIENT MEDICATIONS: The patient's medications were all reviewed by me. She continues to be on IV meropenem. She was given two doses of potassium chloride 40 mEq at 7 o'clock and 9 o'clock. She has been started on Carafate 1 gram by mouth with meals, and she is on Protonix 40 mg by mouth twice a day. No other change in medications today as compared with yesterday. ASSESSMENT/PLAN: 1. End-stage renal disease, on peritoneal dialysis. The patient continues to have pain with the peritoneal exchanges and now the dialysis catheter is malfunctioning; it is not draining well or instilling. The patient does not want to do any more peritoneal dialysis (PD). I contacted Dr. Bunch. He would see the patient, and if the patient needs laparoscopy and adjustment of catheter versus removal of catheter, it will be done in the operating room (OR). The patient will be switched to hemodialysis for now. 2. Intractable right upper quadrant pain, etiology is not clear at this time. The patient is empirically getting IV antibiotics. There is no evidence of peritonitis on the peritoneal fluid cell count. She got the esophagogastroduodenoscopy (EGD) done yesterday and only found erosive esophagitis, and she was started on Carafate and Protonix. 3. Chronic systolic congestive heart failure. Volume status is decompensated now. She is not getting adequate dialysis. Continue metoprolol, lisinopril and isosorbide. The patient will be switched to hemodialysis and further fluid will be removed with hemodialysis. 4. Hypertension with end-stage renal disease. Continue with lisinopril, isosorbide and metoprolol. Volume optimization with dialysis would also help improve blood pressure. 5. Hypokalemia. The patient got two doses of potassium chloride; repeat potassium done in the afternoon was 3.8. 6. Secondary hyperparathyroidism. Continue current dose of calcitriol 0.25 mcg alternating with calcitriol 0.5 mcg.
[2018-09-15] MEDS: GENTAMICIN SULFATE 0.1% OINT 15 GM TOP SCH (20:21)
[2018-09-15 22:00] VITALS: BP 138/70
[2018-09-16] VITALS (8 sets, daily range): BP systolic 94–157; BP diastolic 42–70
[2018-09-16] MEDS: MORPHINE 4 MG/ML 1ML VIAL/SYRINGE (J2270) IV PRN ×2 (00:14→07:50)
[2018-09-16] MEDS: CALCITRIOL 0.25 MCG CAP (S0169) PO SCH (06:08)
[2018-09-16] MEDS: PANTOPRAZOLE 40MG TAB (PROTONIX) PO SCH ×2 (06:08→19:46)
[2018-09-16] MEDS: LEVOTHYROXINE 75MCG TABLET (0.075MG) PO SCH (06:08)
[2018-09-16 06:09] LABS: BASO # 0.1 10^3/uL (0.0-0.2); BASO % 0.7 % (0.0-1.0); EOS # 0.3 10^3/uL (0.0-0.50); EOS % 3.6 % (0.0-3.0); HEMATOCRIT 35.6 % (36.0-47.0); HEMOGLOBIN 10.9 g/dl (12.0-15.5); LYMPH % 14.5 % (24.0-44.0); MEAN CORPUSCULAR HEMOGLOBIN 30.2 pg (27.0-33.0); MEAN CORPUSCULAR HGB CONC 30.6 g/dl (32.0-36.5); MEAN CORPUSCULAR VOLUME 98.6 fl (80.0-96.0); MONO # 0.7 10^3/uL (0.0-0.8); MONO % 9.9 % (0.0-5.0); NEUTROPHILS # 4.9 10^3/uL (1.8-7.7); NEUTROPHILS % 70.9 % (36.0-66.0); RED BLOOD COUNT 3.61 10^6/uL (4.00-5.40); WHITE BLOOD COUNT 6.9 10^3/uL (4.0-10.0)
[2018-09-16] MEDS: LISINOPRIL 10 MG TAB PO SCH (06:09)
[2018-09-16] MEDS: NYSTATIN 500,000 U/5 ML SUSP UDC SS SCH ×4 (06:09→21:12)
[2018-09-16] MEDS: PRENATAL VITAMINS CHEWABLE TABLET PO SCH (06:09)
[2018-09-16] MEDS: ISOSORBIDE MON. (IMDUR) 30 MG XR TAB PO SCH (06:10)
[2018-09-16] MEDS: METOPROLOL TART 25 MG TABLET PO SCH ×2 (06:10→21:00)
[2018-09-16] MEDS: SUCRALFATE 1 GM TAB PO SCH ×4 (06:10→19:46)
[2018-09-16 06:12] LABS: PLATELET COUNT, AUTOMATED 89 10^3/uL (150-450)
[2018-09-16] MEDS: ACETAMINOPHEN TAB 650MG DOSE (2X325MG) PO PRN (06:14)
[2018-09-16 06:41] LABS: CALCIUM LEVEL 8.8 MG/DL (8.5-10.1); CREATININE FOR GFR 13.9 MG/DL (0.55-1.30); MAGNESIUM LEVEL 2.2 MG/DL (1.8-2.4); PHOSPHORUS LEVEL 4.6 MG/DL (2.5-4.9); POTASSIUM SERUM 4.5 MEQ/L (3.5-5.1)
[2018-09-16] MEDS: HumaLOG INSULIN (NovoLOG) PER UNIT SC SCH ×4 (07:04→20:42)
--- NOTE | 2018-09-16 09:12 | IPN ---
DATE OF SERVICE: 09/15/2018 SUBJECTIVE: Subha seen and examined this morning at the bedside. She complains of bilateral upper quadrant discomfort which is worse when she tries to take any oral intake. She also complains of pain with swallowing. She is having some soft bowel movements. She denies vomiting. She is agreeable for hemodialysis tomorrow morning. VITAL SIGNS: Temperature 97.4, pulse 68, respiratory rate 17, blood pressure 118/58, saturating 94% on room air. Intake yesterday and output yesterday were fairly equivalent. Weight on the bed scale today is not recorded. GENERAL: The patient is seen at the bedside lying in bed awake, alert and oriented in no distress. Extraocular muscles are intact. The mucous membranes are moist. The neck is supple. There is no jugular venous distension. Cardiac: S1-S2 regular rate. There is no edema in the lower extremities. Lungs are clear to auscultation bilaterally. There is no rale or rhonchi. The abdomen is soft. There are bowel sounds. The left lower quadrant peritoneal dialysis catheter exit site is intact. There is tenderness to palpation in the epigastrium and the right upper quadrant. Extremities: There is a arteriovenous graft in the right side. There is no edema in the extremities. No clubbing or cyanosis. Neurologic: No focal deficits. Oriented times three. LABS: White count 6.8, hemoglobin 10.7, platelets 93. Sodium 140, potassium 4.2, bicarbonate 28, creatinine 13. INPATIENT MEDICATIONS: Reviewed by myself. I have discontinued her potassium supplement. She continues on IV meropenem. Her insulin was adjusted per the primary team. Her remainder of medications are unchanged from prior. PROBLEMS: 1. End-stage renal disease. The patient has not had adequate dialysis in the past couple of days due to recurrent issues with her peritoneal dialysis catheter. Her peritoneal cultures have been negative and her peritoneal cell count likewise has been satisfactory and shows no sign of infection. However, the patient has been having ongoing complaints of abdominal pain, and troubles with flow from the PD catheter. Dr. Gilmore has previously discussed with Dr. Bunch regarding PD catheter removal and we will transition her back to hemodialysis. Her first hemodialysis treatment will be Sunday morning through the right thigh graft. 2. Recurrent abdominal pain. The patient has had a significant workup including a negative workup for peritonitis associated with the PD catheter. She has been evaluated by surgery and she has also had an EGD, which showed a moderate to severe esophagitis. She is continued on Prilosec and Carafate. I also note a downtrend in her platelet count, which appears to be new from prior. After she is initiated on hemodialysis, we can get a CT with IV contrast for further evaluation. 3. Chronic systolic congestive heart failure, ejection fraction of 25-30%. The patient has not had adequate dialysis in a couple of days due to PD catheter malfunction issues. Presently, volume status as is acceptable. She has not been having much oral intake due to her abdominal complaints. She will receive a hemodialysis treatment tomorrow morning, which will be heparin free in view of thrombocytopenia. 4. Hypertension. Blood pressures are controlled and no changes are made to the regimen of metoprolol, lisinopril and Imdur. 5. Thrombocytopenia. It appears worsened over the course of this admission. I note that the primary team has already stopped her on heparin subcu. I wonder if there is any relationship between the falling platelets and her abdominal pain. She will receive heparin free dialysis tomorrow and we can also consider contrast imaging of the belly.
[2018-09-16] MEDS ORDERED: LIDOCAINE 1% SDV 5 ML VIAL SQ ONE (12:15)
--- NOTE | 2018-09-16 12:40 | IPNPDOC ---
Text Note Date of Service The patient was seen on 09/16/18. NOTE SUBJECTIVE: Patient seen during morning rounds in HD. She complains of continued abdominal pain in b/l upper quadrants. Otherwise patient denies chest pain, shortness breath, nausea, vomiting, fevers, chills OBJECTIVE PHYSICAL EXAMINATION: VITAL SIGNS: Please see below. GENERAL: Pleasant 48 yo female sitting up in bed receiving HD via right thigh graft, awake alert oriented speaking in complete sentences no acute distress HEENT: Moist mucous membranes, no jvd, EOMI CARDIOVASCULAR: S1 S2 regular no additional heart sounds appreciated. RESPIRATORY: Clear to auscultation bilaterally, no crackles, rales or wheezing ABDOMINAL: nabsx4, some pain to light palpation throughout abdomen, no distension, no rebound ridgity or guarding, no hepatosplenomegaly or masses but hard to appreciate since patient is so tender, some bruising from Heparin administrations, PD cath in place LLQ area, dressing and surrounding skin is dry and clean, no erythema appreciated nor pus/blood exudation EXTREMITIES: No clubbing cyanosis or edema NEUROLOGICAL: Spontaneously moves all 4 extremities, no focal deficits appreciated PSYCHOLOGICAL: Appropriate LABORATORY DATA, MICROBIOLOGY: Please see below. ASSESSMENT AND PLAN: This is a 48 yo female who is complaining of consistent abdominal pain during HD. PROBLEMS: 1. Chronic abdominal pain -She has had an extensive work up to evaluate for etiology of abdominal pain, so far body fluid cultures from peritoneal fluid have not shown growth anaerobically or aerobically, she had negative PCR GI panel, and positive stool lactoferrin which could suggest intestinal inflammation. She has currently peritoneal fluid pending test for Mycobacterium cultures and fungal smears. She continues on Meropenem. Less likely peritonitis from PD catheter. She is scheduled to go to surgery with Dr. Bunch for possible PD catheter revision. In the mean time she is being dialyzed via a right thigh cath. She has also had an EGD on 09-13-18, that only showed esophagitis which could be contributing to her current symptoms. She continues on Prilosec and Carafate. We will attempt to perform CT ab/pelvis with contrast in AM now that she is being started on HD. We can advance her diet as tolerated after we find out surgical plans for PD cath. 2. Thrombocytopenia -Etiology is unclear at this point, will send perphrial smear for further evaluation. Could be secondary to abdominal complaints, will attempt CT ab/pelvis with contrast in AM since she is being started on IV contrast. CT ab/pelvis w/o contrast showed pneumoperitoneum likely related to peritoneal dialysis catheter, perforated hollow viscus cannot be entirely excluded. Interval development of moderate to large ascites. Interval increase in right pleural effusion. Suspect volume overload. Cholelithiasis. No specific evidence of acute cholecystitis. 3.End-stage renal disease on peritoneal dialysis with malfunctioning PD catheter: -Case was discussed with Dr. Yost as well as Dr Mcdaniel 09/14/18 -Heparin was given through the PD catheter to see if this were dressed with the patencyhowever, the patient's catheter did not work well even after the heparin instillation. -Patient scheduled for PD cath revision today with Dr. Bunch. 4. Hypokalemia: -Resolved 4.5 today 5. Chronic systolic congestive heart failure baseline ejection fraction 25-30%: -Continue metoprolol, lisinopril, no fluid is being removed through HD 6. Diabetes mellitus type 2 on long-term insulin therapy complicated by diabetic neuropathy as well as retinopathy: -Hold long-acting insulin given patient's nausea and vomiting -C/w SSI 7. Uncontrolled hypertension: -Now controlled -Continue metoprolol, lisinopril and Imdur 8. Hypothyroidism: -Continue Levothyroxine 9. GI/DVT PPX: -PPI -heparin d/c in light of thrombocytopenia DISPOSITION: She is due for surgical procedure with Dr. Bunch pd cath revision. VS,Fishbone, I+O VS, Fishbone, I+O Laboratory Tests 09/16/18 05:23 Red Blood Count 3.61 L, Mean Corpuscular Volume 98.6 H, Mean Corpuscular Hem oglobin 30.2, Mean Corpuscular Hemoglobin Concent 30.6 L, Red Cell Distribution Width 15.7 H, Neutrophils (%) (Auto) 70.9 H, Lymphocytes (%) (Auto) 14.5 L, Monocytes (%) (Auto) 9.9 H, Eosinophils (%) (Auto) 3.6 H, Basophils (%) (Auto) 0.7, Neutrophils # (Auto) 4.9, Lymphocytes # (Auto) 1.0 L, Monocytes # (Auto) 0.7, Eosinophils # (Auto) 0.3, Basophils # (Auto) 0.1, Calcium Level 8.8 Vital Signs Date Time Temp Pulse Resp B/P (MAP) Pulse Ox O2 Delivery O2 Flow Rate FiO2 09/16/18 08:05 19 09/16/18 06:10 72 09/16/18 06:09 130/60 09/16/18 06:00 98.6 99 09/11/18 18:45 Room Air I&O- Last 24 Hours up to 6 AM 09/16/18 06:00 Intake Total 510 ml Output Total 100 ml Balance 410 ml GME ATTESTATION GME ATTESTATION My faculty preceptor for this patient encounter was physically present during the encounter and was fully available. All aspects of the patient interview, examination, medical decision making process, and medical care plan development were reviewed and approved by the faculty preceptor. The faculty preceptor is aware and concurs with the plan as stated in the body of this note and will attest to such by his/her cosignature. ATTENDING NOTE I, Pedrito Castillo, have both independently examined this patient as well as reviewed the documentation. I have discussed in detail with the resident the findings and plan of treatment as documented in the residents documentation and agree with what is stated. I will continue to follow the patient and offer further guidance to the patients care as necessary during this hospital stay. GRIFFIN MARTINS DO Sep 16, 2018 12:40 PEDRITO CASTILLO MD Sep 16, 2018 17:29
--- NOTE | 2018-09-16 13:38 | IPN ---
DATE OF SERVICE: 09/16/2018 SUBJECTIVE: Subha is seen and examined this morning at the bedside in the hemodialysis unit receiving treatment through the right thigh graft. She is n.p.o. for PD catheter removal later this afternoon. She continues to complain of pain with swallowing and upper quadrant discomfort as well. Her platelet count is noted to be downtrending. PHYSICAL EXAMINATION: Vital signs: Temperature 98.6, pulse 72, respiratory rate 16, blood pressure 130/60, saturating 99% on room air. Intake yesterday was 630. There were two voids and one bowel movement recorded yesterday. Weight on the bed scale today is not recorded. General: The patient is seen on hemodialysis receiving her treatment via the right thigh arteriovenous graft. She is awake, alert, and oriented, in no distress. Mucous membranes are moist. Jugular veins are not elevated. Extraocular muscles are intact. Cardiac: S1, S2 regular rate and rhythm. No edema in the peripheries. Lungs show symmetric air entry bilaterally. No crackles, rales or wheeze. Abdomen is soft. There are bowel sounds. There is a PD catheter in the left lower quadrant area whose exit site is unremarkable. There is tenderness in the bilateral upper quadrants in the epigastrium, but there is no guarding, no rebound. Extremities show a right thigh AV graft which is presently in use. There is no edema in the peripheries. Neurologic: She is oriented times four at baseline mentation. LABORATORY DATA: White count 6.9, hemoglobin 10.9, platelets 89. Sodium 141, potassium 4.5, bicarbonate 28, BUN 38, creatinine 13. Inpatient medications reviewed by myself and no change from prior. PROBLEMS: 1. End-stage renal disease, previously on peritoneal dialysis however, has had recurrent malfunctioning issues of the PD catheter and has not had any adequate dialysis treatments for the past few days. She is being switched over to hemodialysis and she is for PD catheter removal/revision this afternoon with Dr. Bunch. Her peritonitis workup was negative with unremarkable peritoneal cell count and negative culture, but she has not been able to have adequate peritoneal dialysis due to recurrent malfunctioning of the catheter. 2. Recurrent abdominal pain. She has had significant workup including negative workup for peritonitis. She has also been evaluated by surgery. Her gallbladder was evaluated. She also had an EGD which showed moderate to severe esophagitis. She is on Prilosec and Carafate. She denies any symptomatic improvement in her pain. There is also a notable new downtrend in platelet count. She is scheduled for a CT with IV contrast tomorrow morning to further evaluate the abdomen and we will dialyze her post study. 3. Chronic systolic congestive heart failure, ejection fraction of 25-30%. She has not had adequate dialysis in a few days due to PD catheter malfunction issues. She is seen on hemodialysis this morning with a goal fluid removal of 1.5 to 2 liters as tolerated by hemodynamics. She has not been having much oral intake due to her abdominal complaints and there is no significant hypervolemia on exam. 4. Thrombocytopenia. It is new and slowly worsening. She is receiving heparin free dialysis. She is for CT with IV contrast tomorrow. 5. Hypertension. Blood pressures are acceptable. No changes are being made to the current regimen.
--- NOTE | 2018-09-16 14:39 | CR.PDOC ---
General Date of Consultation: Sep 16, [address] Bunch. REASON FOR CONSULTATION: Non functioning PD cath HPI: Pt is a 48yo F with End-stage renal disease, previously on peritoneal dialysis however, has had recurrent malfunctioning issues of the PD catheter and has not had any adequate dialysis treatments for the past few days. She is currently receiving hemodialysis this AM. Plan for PD catheter revision this afternoon as per Dr. Bunch. Peritonitis workup was negative with unremarkable peritoneal cell count and negative culture. Denies any fevers, chills, weakness, fatigue, Headache, Chest Pain, Shortness of breath, cough, palpitations, abdominal pain, N/V/D or changes in bowel or bladder habits. PMH End-stage renal disease on peritoneal dialysis, diabetes mellitus type 2, hypertension, hyperlipidemia, systolic congestive heart failure with ejection fraction 25-30% at baseline, pericardial effusion status post pericardiocentesis in 2016, peripheral vascular disease, chronic anemia, peripheral neuropathy, hypothyroidism, diabetic neuropathy and retinopathy Surgical History Cardiac catheterization in March 2016 without stent placement, hysterectomy, right foot biopsy, right chest tube placement in 2015, pericardial centesis with tube pericardiostomy, section, tubal ligation, left upper extremity AV fistula creation leading to steal syndrome following which it was ligated with placement of right lower extremity graft, kidney and liver biopsies Family History Mom, dad as well as siblings have diabetes mellitus. Cousin has liver cirrhosis Social History Smoker: [id number] history of smokingquit 6 months ago. Alcohol: Denies Drugs: denies ROS: As noted in HPI, otherwise 11pt ROS of systems reviewed and remarkable for continued abdominal pain in b/l upper quadrants. PE: GEN: 48yoF, appears stated age. Currently receiving HD. HEENT: Normocephalic, atraumatic. Sclera are nonicteric. Conjunctiva without injection. Moist mucous membranes. ABD: Round, soft, TTP across upper abdomen. PD cath in place. EXT: No lower extremity edema appreciated. SKIN: [place], dry, warm. No rashes. NEURO: No focal deficits appreciated. A&P: 1. recurrent nonfunctioning PD catheter. Plan for PD cath revision later today as per Dr Bunch. Afebrile. WBC 6.9. Pt remains on IV Meropenem, topical gentamicin as per primary team. Thank you for your consultation. We will continue to follow along with you. Vital Signs/I&O Vital Signs Date Time Temp Pulse Resp B/P (MAP) Pulse Ox O2 Delivery O2 Flow Rate FiO2 09/16/18 08:05 19 09/16/18 06:10 72 09/16/18 06:09 130/60 09/16/18 06:00 98.6 99 09/11/18 18:45 Room Air I&O- Last 24 Hours up to 6 AM 09/16/18 05:59 Intake Total 510 ml Output Total 100 ml Balance 410 ml Laboratory Data Labs 24H Laboratory Tests 2 09/15/18 16:50: Bedside Glucose (Misc Panel) 109H 09/15/18 20:50: Bedside Glucose (Misc Panel) 119H 09/16/18 05:23: Immature Granulocyte % (Auto) 0.4, White Blood Count 6.9, Red Blood Count 3.61L, Hemoglobin 10.9L, Hematocrit 35.6L, Mean Corpuscular Volume 98.6H, Mean Corpuscular Hemoglobin 30.2, Mean Corpuscular Hemoglobin Concent 30.6L, Red Cell Distribution Width 15.7H, Platelet Count 89L, Neutrophils (%) (Auto) 70.9H, Lymphocytes (%) (Auto) 14.5L, Monocytes (%) (Auto) 9.9H, Eosinophils (%) (Auto) 3.6H, Basophils (%) (Auto) 0.7, Neutrophils # (Auto) 4.9, Lymphocytes # (Auto) 1.0L, Monocytes # (Auto) 0.7, Eosinophils # (Auto) 0.3, Basophils # (Auto) 0.1, Nucleated Red Blood Cells % (auto) 0.0, Differential Slide Review Report, Immature Platelet Fraction 2.0, Peripheral Blood Smear Path Consult PERIPHERAL SMEAR, Anion Gap 8, Glomerular Filtration Rate 3.0L, Blood Urea Nitrogen 38H, Creatinine 13.90*H, Sodium Level 141, Potassium Level 4.5, Chloride Level 105, Carbon Dioxide Level 28, Calcium Level 8.8, Phosphorus Level 4.6, Magnesium Level 2.2 09/16/18 06:25: Bedside Glucose (Misc Panel) 88 09/16/18 13:22: Bedside Glucose (Misc Panel) 93 CBC/BMP Laboratory Tests 09/16/18 05:23 Red Blood Count 3.61 L, Mean Corpuscular Volume 98.6 H, Mean Corpuscular Hemoglobin 30.2, Mean Corpuscular Hemoglobin Concent 30.6 L, Red Cell Distribution Width 15.7 H, Neutrophils (%) (Auto) 70.9 H, Lymphocytes (%) (Auto) 14.5 L, Monocytes (%) (Auto) 9.9 H, Eosinophils (%) (Auto) 3.6 H, Basophils (%) (Auto) 0.7, Neutrophils # (Auto) 4.9, Lymphocytes # (Auto) 1.0 L, Monocytes # (Auto) 0.7, Eosinophils # (Auto) 0.3, Basophils # (Auto) 0.1, Calcium Level 8.8 Microbiology Microbiology 09/13/18 Acid Fast Stain, Received Pending 09/13/18 Mycobacterial Culture, Received Pending 09/13/18 Fungal Smear, Received Pending 09/13/18 Fungal Culture, Received Pending 09/13/18 Gram Stain - Final, Resulted 09/13/18 Body Fluid Culture, Resulted Pending 09/13/18 Anaerobic Culture - Final, Resulted 09/13/18 Body Fluid Culture - Final, Complete 09/12/18 Gram Stain - Final, Complete 09/12/18 Body Fluid Culture - Final, Complete 09/13/18 Stool Lactoferrin - Final, Complete 09/13/18 Gastrointestinal Tract Panel (PCR) - Final, Complete Allergies Coded Allergies: Penicillins (Verified Allergy, Unknown, UNKNOWN CHILDHOOD REACTION, 09/11/18) PER [facility] RECORDS PT HAS RECEIVED MEROPENEM AND CEFEPIME IN THE PAST Home Medications Scheduled Amino AC/Protein Hydr/Whey Pro (Liquacel Liquid Protein) 960 Ml Liquid, 1 LIQ PO 3XW, (Reported) MON/WED/FRI Calcitriol (Calcitriol) 0.25 Mcg Capsule, 0.5 MCG PO 3XW, (Reported) MON/WED/FRI Calcitriol (Calcitriol) 0.25 Mcg Capsule, 0.25 MCG PO 4XWK, (Reported) SUN//SUN/SUN Ergocalciferol (Vitamin D2) (Drisdol) 50,000 Unit Capsule, 50,000 UNIT PO QWEEK, (Reported) SUNDAYS Ferric Citrate (Auryxia) 210 Mg Tab, 420 MG PO TID, (Reported) Folic Acid/Vit B Complex and C (April-Antonina Tablet) 1 Tab Tab, 1 TAB PO DAILY, (Reported) Gentamicin Sulfate (Gentamicin Sulfate) 15 Gm Oint...g., 1 APLCT TOP QHS, (Reported) APPLY WITH EACH DRESSING CHANGE TO PERITONEAL DIALYSIS SITE Insulin Glargine,Hum.rec.anlog (Basaglar Kwikpen U-100) 100 Unit/1 Ml Insuln.pen, 20 UNIT SC QHS, (Reported) Isosorbide Mononitrate (Isosorbide Mononitrate ER) 30 Mg Tab, 30 MG PO DAILY, (Reported) Levothyroxine Sodium (Levothyroxine Sodium) 75 Mcg Tablet, 75 MCG PO QAM, (Reported) Lisinopril (Lisinopril) 10 Mg Tablet, 10 MG PO DAILY, (Reported) Methoxy Peg-Epoetin Beta (Mircera) 75 Mcg/0.3 Ml Syringe, 75 MCG SC QMONTH, (Reported) Metoprolol Tartrate (Metoprolol Tartrate) 25 Mg Tablet, 25 MG PO BID, (Reported) Sevelamer Carbonate (Sevelamer Carbonate) 800 Mg Tab, 2,400 MG PO TID, (Reported) Sharon Ziegler Sep 16, 2018 14:39
[2018-09-16] MEDS: MEROPENEM INJ 1 GM in APPROPRIATE DILUENT 1 EA IV SCH (14:42)
[2018-09-16] MEDS ORDERED: fentaNYL 100 MCG/2 ML INJECTION (J3010) As Ordered ONE ×2 (16:37→18:09)
[2018-09-16] MEDS ORDERED: MIDAZOLAM INJ 2 MG/2 ML VIAL (J2250) As Ordered ONE (16:37)
[2018-09-16] MEDS ORDERED: ROCURONIUM BROMIDE 50 MG/5 ML VIAL As Ordered ONE (16:38)
[2018-09-16] MEDS ORDERED: ONDANSETRON 4MG/2ML VIAL (J2405) As Ordered ONE (16:38)
[2018-09-16] MEDS ORDERED: LIDOCAINE 2% INJ 100 MG/5 ML SDV (FOR ANES.) As Ordered ONE (16:38)
[2018-09-16] MEDS ORDERED: PROPOFOL 200 MG/20 ML VIAL As Ordered ONE (16:38)
[2018-09-16] MEDS ORDERED: BUPIVACAINE HCL 0.5% 30 ML VIAL As Ordered ONE (16:43)
[2018-09-16] MEDS ORDERED: LIDOCAINE 1% SDV INJ 30 ML VIAL As Ordered ONE (16:43)
[2018-09-16] MEDS ORDERED: GLYCOPYRROLATE INJ 0.2 MG/ML 2 ML VIAL As Ordered ONE ×2 (17:14→17:15)
[2018-09-16] MEDS ORDERED: NEOSTIGMINE 10 MG/10 ML VIAL (J2710) As Ordered ONE (17:14)
[2018-09-16] MEDS ORDERED: PHENYLephrine HCL 500 MCG/5 ML (100MCG/ML) SYRINGE (J2370) As Ordered ONE (17:31)
[2018-09-16] MEDS ORDERED: BACITRACIN OINT 30GM As Ordered ONE (17:35)
[2018-09-16] MEDS: fentaNYL 100 MCG/2 ML INJECTION (J3010) IV PRN ×4 (18:10→18:30)
[2018-09-16] MEDS ORDERED: ONDANSETRON 4MG/2ML VIAL (J2405) IV PRN (18:15)
[2018-09-16] MEDS ORDERED: NS 1,000 ML IV SCH (18:15)
[2018-09-16] MEDS ORDERED: PERCOCET 5MG/325MG TAB As Ordered ONE ×2 (18:26→19:00)
[2018-09-16] MEDS: PERCOCET 5MG/325MG TAB PO PRN ×2 (18:29→19:06)
[2018-09-16] MEDS ORDERED: HYDROMORPHONE HCL 0.5 MG/ 0.5 ML SYRINGE (J1170 PER 1) As Ordered ONE (18:37)
[2018-09-16] MEDS: HYDROMORPHONE HCL 0.5 MG/ 0.5 ML SYRINGE (J1170 PER 1) IV PRN ×3 (18:49→18:55)
[2018-09-16] MEDS: GENTAMICIN SULFATE 0.1% OINT 15 GM TOP SCH (21:00)
[2018-09-17] VITALS (8 sets, daily range): BP systolic 82–135; BP diastolic 52–62
[2018-09-17] MEDS ORDERED: NALOXONE INJ 2 MG/2 ML SYRINGE (J2310) IV STA (05:43)
[2018-09-17] MEDS ORDERED: SODIUM CHLORIDE 0.9% 1000ML IV ONE ×2 (05:45→06:15)
[2018-09-17] MEDS ORDERED: NALOXONE INJ 0.4 MG/1 ML VIAL (J2310) IV STA (05:46)
[2018-09-17] MEDS: ACETAMINOPHEN TAB 650MG DOSE (2X325MG) PO PRN ×3 (06:01→22:57)
[2018-09-17] MEDS: LEVOTHYROXINE 75MCG TABLET (0.075MG) PO SCH (06:23)
[2018-09-17 07:12] LABS: VENOUS BASE EXCESS -1.3 (-2.0-2.0); VENOUS HCO3 25.6 MEQ/L (23.0-27.0); VENOUS O2 SATURATION 83.3 % (60.0-80.0); VENOUS PARTIAL PRESSURE CO2 54.6 mmHg (38.0-50.0); VENOUS PARTIAL PRESSURE O2 52.7 mmHg (30.0-50.0); VENOUS PH 7.289 UNITS (7.330-7.430); VENOUS STANDARD HCO3 23.2 MEQ/L; VENOUS TOTAL CO2 27.3 MEQ/L (24.0-28.0)
[2018-09-17 07:20] LABS: HEMATOCRIT 28.6 % (36.0-47.0); MEAN CORPUSCULAR HEMOGLOBIN 30.6 pg (27.0-33.0); MEAN CORPUSCULAR HGB CONC 30.1 g/dl (32.0-36.5); MEAN CORPUSCULAR VOLUME 101.8 fl (80.0-96.0); PLATELET COUNT, AUTOMATED 114 10^3/uL (150-450); RED BLOOD COUNT 2.81 10^6/uL (4.00-5.40); WHITE BLOOD COUNT 9.7 10^3/uL (4.0-10.0)
[2018-09-17 07:26] LABS: CREATININE FOR GFR 6.98 MG/DL (0.55-1.30); GLOMERULAR FILTRATION RATE 6.7 (>58); POTASSIUM SERUM 4.6 MEQ/L (3.5-5.1)
[2018-09-17 07:31] LABS: HEMOGLOBIN 8.6 g/dl (12.0-15.5)
[2018-09-17] MEDS: CHLORASEPTIC SPRAY MT PRN ×2 (07:34→10:28)
[2018-09-17] MEDS ORDERED: LIDOCAINE 1% SDV 5 ML VIAL SQ ONE (08:45)
[2018-09-17] MEDS: METOPROLOL TART 25 MG TABLET PO SCH ×2 (08:45→20:51)
[2018-09-17] MEDS: LISINOPRIL 10 MG TAB PO SCH (08:45)
[2018-09-17] MEDS ORDERED: NS 250 ML IV ONE (09:00)
[2018-09-17] MEDS: ISOSORBIDE MON. (IMDUR) 30 MG XR TAB PO SCH (09:00)
[2018-09-17] MEDS: HumaLOG INSULIN (NovoLOG) PER UNIT SC SCH ×4 (09:05→20:51)
[2018-09-17] MEDS: SUCRALFATE 1 GM TAB PO SCH ×4 (09:05→20:51)
[2018-09-17] MEDS: CALCITRIOL 0.25 MCG CAP (S0169) PO SCH (09:06)
[2018-09-17] MEDS: PRENATAL VITAMINS CHEWABLE TABLET PO SCH (09:06)
[2018-09-17] MEDS: NYSTATIN 500,000 U/5 ML SUSP UDC SS SCH ×4 (09:06→20:50)
[2018-09-17] MEDS: PANTOPRAZOLE 40MG TAB (PROTONIX) PO SCH ×2 (09:06→20:50)
[2018-09-17] MEDS ORDERED: ISOVUE-370 76% 100ML VIAL (Q9967) As Ordered ONE (10:03)
--- NOTE | 2018-09-17 11:10 | IPNPDOC ---
Date Seen The patient was seen on 09/17/18. Progress Note Vascular surgery Dr Bunch. HPI: Pt is a 48yo F with End-stage renal disease, previously on peritoneal dialysis however, has had recurrent malfunctioning issues of the PD catheter and has not had any adequate dialysis treatments for the past few days. Peritonitis workup was negative with unremarkable peritoneal cell count and negative culture. S/P PD catheter removal and re insertion 09/16/18. The pt reports lower abdominal pain this AM. Denies any fevers, chills, weakness, fatigue, Headache, Chest Pain, Shortness of breath, cough, palpitations, abdominal pain, N/V/D or changes in bowel or bladder habits. PMH End-stage renal disease on peritoneal dialysis, diabetes mellitus type 2, hypertension, hyperlipidemia, systolic congestive heart failure with ejection fraction 25-30% at baseline, pericardial effusion status post pericardiocentesis in 2016, peripheral vascular disease, chronic anemia, peripheral neuropathy, hypothyroidism, diabetic neuropathy and retinopathy Surgical History Cardiac catheterization in March 2016 without stent placement, hysterectomy, right foot biopsy, right chest tube placement in 2015, pericardial centesis with tube pericardiostomy, section, tubal ligation, left upper extremity AV fistula creation leading to steal syndrome following which it was ligated with placement of right lower extremity graft, kidney and liver biopsies PE: GEN: 48yoF, appears stated age. Currently receiving HD. HEENT: Normocephalic, atraumatic. Sclera are nonicteric. Conjunctiva without injection. Moist mucous membranes. ABD: Round, soft, non distended, TTP across lower abdomen. PD cath in place. Dressings clean and dry. EXT: No lower extremity edema appreciated. SKIN: [place], dry, warm. No rashes. NEURO: No focal deficits appreciated. A&P: 1. H/O recurrent nonfunctioning PD catheter. S/P PD catheter removal and re insertion 09/16/18. Pt is reviewed and examined this AM as per Dr Bunch. PD cath in place, dressings clean and dry. Abdomen is soft and not distended. Afebrile. WBC 8.7. Pt remains on IV Meropenem, as per primary team. Dr Bunch recommends flushes of PD cath Q6hr 1000cc NS, sit 1 hr, then remove. This is relayed to nephrology. 2. Anemia. No signs of bleeding at surgical site, abdomen is soft, ND. Agree with transfusion. Add PT/PTT to labs. 3. ESRD. HD as per Nephrology. 4. hypotension. IVF as per primary team. Monitor. VS, I&O, 24H, Dannybone Vital Signs/I&O Vital Signs Date Time Temp Pulse Resp B/P (MAP) Pulse Ox O2 Delivery O2 Flow Rate FiO2 09/17/18 10:00 97.0 75 17 113/53 (73) 100 09/16/18 23:25 1.5 09/11/18 18:45 Room Air I&O- Last 24 Hours up to 6 AM 09/17/18 06:00 Intake Total 690 ml Output Total 1420 ml Balance -730 ml Laboratory Data 24H LABS Laboratory Tests 2 09/16/18 13:22: Bedside Glucose (Misc Panel) 93 09/16/18 18:24: Bedside Glucose (Misc Panel) 86 09/16/18 19:28: Bedside Glucose (Misc Panel) 89 09/17/18 05:41: Bedside Glucose (Misc Panel) 192H 09/17/18 06:07: Nucleated Red Blood Cells % (auto) 0.0, Anion Gap 6L, Glomerular Filtration Rate 6.7L, Blood Urea Nitrogen 15#, Creatinine 6.98H, Sodium Level 142, Potassium Level 4.6, Chloride Level 107, Carbon Dioxide Level 29, Calcium Level 8.0L 09/17/18 07:05: Blood Gas Bicarbonate Standard 23.2, Venous Blood pH 7.289L, Venous Blood Partial Pressure CO2 54.6H, Venous Blood Partial Pressure O2 52.7H, Venous Blood Total Carbon Dioxide 27.3, Venous Blood HCO3 25.6, Venous Blood Oxygen Saturation 83.3H, Venous Blood Base Excess -1.3 CBC/BMP Laboratory Tests 09/17/18 06:07 Red Blood Count 2.81 L, Mean Corpuscular Volume 101.8 H, Mean Corpuscular Hemoglobin 30.6, Mean Corpuscular Hemoglobin Concent 30.1 L, Red Cell Distribution Width 15.7 H, Calcium Level 8.0 L Microbiology Microbiology 09/13/18 Acid Fast Stain, Received Pending 09/13/18 Mycobacterial Culture, Received Pending 09/13/18 Fungal Smear, Received Pending 09/13/18 Fungal Culture, Received Pending 5/31/19 Gram Stain - Final, Complete 09/13/18 Body Fluid Culture - Final, Complete Staphylococcus Hominis Ssp Williams 09/13/18 Anaerobic Culture - Final, Complete 09/13/18 Body Fluid Culture - Final, Complete 09/12/18 Gram Stain - Final, Complete 09/12/18 Body Fluid Culture - Final, Complete 09/13/18 Stool Lactoferrin - Final, Complete 09/13/18 Gastrointestinal Tract Panel (PCR) - Final, Complete Sharon Ziegler Sep 17, 2018 11:10
[2018-09-17 11:39] LABS: INR 1.15; PROTHROMBIN TIME 14.9 SECONDS (12.1-14.4)
[2018-09-17 11:40] LABS: PARTIAL THROMBOPLASTIN TIME 30.4 SECONDS (25.4-37.6)
--- NOTE | 2018-09-17 12:13 | IPNPDOC ---
Text Note Date of Service The patient was seen on 09/17/18. NOTE SUBJECTIVE: Patient seen during morning rounds. She complains of continued abdominal pain in b/l upper quadrants, thinks it is a little worse today after surgery. Otherwise patient denies chest pain, shortness breath, nausea, vomiting, fevers, chills. OBJECTIVE PHYSICAL EXAMINATION: VITAL SIGNS: Please see below. GENERAL: Pleasant 48 yo female sitting up in bed, awake alert oriented speaking in complete sentences no acute distress HEENT: Moist mucous membranes, no JVD, EOMI CARDIOVASCULAR: S1 S2 regular no additional heart sounds appreciated. RESPIRATORY: Clear to auscultation bilaterally, no crackles, rales or wheezing ABDOMINAL: nabsx4, continued pain to light palpation throughout abdomen, no distension, no rebound ridgity or guarding, no hepatosplenomegaly or masses, some continued bruising from Heparin administrations in lower abdomen, PD cath was recently exchanged, in place lower abdomen area, dressing and surrounding skin is dry and clean, no erythema appreciated nor pus/blood exudation EXTREMITIES: No clubbing cyanosis or edema NEUROLOGICAL: Spontaneously moves all 4 extremities, no focal deficits appreciated PSYCHOLOGICAL: Appropriate LABORATORY DATA, MICROBIOLOGY: Please see below. ASSESSMENT AND PLAN: This is a 48 yo female who is complaining of consistent abdominal pain during HD. PROBLEMS: 1. Chronic abdominal pain -This seems a little improved today. Peritoneal fluid positive for Staph Hominis. She has had an extensive work up to evaluate for etiology of abdominal pain. She had negative PCR GI panel, and positive stool lactoferrin which could suggest intestinal inflammation. She has currently peritoneal fluid pending test for Mycobacterium cultures and fungal smears. She continues on Meropenem. Less likely peritonitis from PD catheter. She is s/p surgery with Dr. Bunch this morning for PD cath revision and is doing well. She has also had an EGD on 09-13-18, that only showed esophagitis which could be contributing to her current symptoms. She continues on Prilosec and Carafate. CT ab/pelvis with contrast this AM pending. We can advance her diet as tolerated. Can consider adjusting abx now that sensitivities are back. 2. Thrombocytopenia -Improving today. Perphrial smear showed anemia chronic disease, thrombocytop enia likely secondary to HD. CT ab/pelvis w contrast pending this AM. CT ab/pelvis w/o contrast showed pneumoperitoneum likely related to peritoneal dialysis catheter, perforated hollow viscus cannot be entirely excluded. Interval development of moderate to large ascites. Interval increase in right pleural effusion. Suspect volume overload. Cholelithiasis. No specific evidence of acute cholecystitis. 3.End-stage renal disease on peritoneal dialysis with malfunctioning PD catheter: -Case was discussed with Dr. Yost as well as Dr Mcdaniel 09/14/18 -S/p PD cath revision today with Dr. Bunch. 4. Unresponsiveness overnight -apparently pt had overnight rapid assessment performed overnight for unresponsiveness, she was given Narcan and had some resolution of symptoms, was also hypotensive, she was given fluid resuscitation. Reviewed EKG from after 6 am and was unrevealing for etiology of acute unresponsiveness. - Would hold possible sedating medications at this time., the patient doesn't remember what occurred overnight. She has no cp or SOB right now. She is currently AAOx3. She is on telemetry and rate is 77 bpm currently. Could very well have been secondary to the pain medications she received during her procedure. -Continue to monitor for now 5. Hypokalemia: -Resolved 4.6 today 6. Chronic systolic congestive heart failure baseline ejection fraction 25-30%: -Continue metoprolol, lisinopril, no fluid was being removed through HD 7. Diabetes mellitus type 2 on long-term insulin therapy complicated by diabetic neuropathy as well as retinopathy -Hold long-acting insulin given patient's nausea and vomiting -C/w SSI 8. Uncontrolled hypertension: -Now controlled -Continue metoprolol, lisinopril and Imdur 9. Hypothyroidism: -Continue Levothyroxine 10. GI/DVT PPX: -PPI -heparin d/c in light of thrombocytopenia DISPOSITION: S/p Dr. Bunch pd cath revision. We are pending CT ab/pelvis with contrast this AM., can consider tailoring abx now that sensitivities are back to growth in peritoneal fluid of staph hominis. VS,Fishbone, I+O VS, Fishbone, I+O Laboratory Tests 09/17/18 06:07 Red Blood Count 2.81 L, Mean Corpuscular Volume 101.8 H, Mean Corpuscular Hemoglobin 30.6, Mean Corpuscular Hemoglobin Concent 30.1 L, Red Cell Distribution Width 15.7 H, Calcium Level 8.0 L Vital Signs Date Time Temp Pulse Resp B/P (MAP) Pulse Ox O2 Delivery O2 Flow Rate FiO2 09/17/18 10:00 97.0 75 17 113/53 (73) 100 09/16/18 23:25 1.5 09/11/18 18:45 Room Air I&O- Last 24 Hours up to 6 AM 09/17/18 06:00 Intake Total 690 ml Output Total 1420 ml Balance -730 ml GME ATTESTATION GME ATTESTATION My faculty preceptor for this patient encounter was physically present during the encounter and was fully available. All aspects of the patient interview, examination, medical decision making process, and medical care plan development were reviewed and approved by the faculty preceptor. The faculty preceptor is aware and concurs with the plan as stated in the body of this note and will attest to such by his/her cosignature. ATTENDING NOTE I, Pedrito Castillo, have both independently examined this patient as well as reviewed the documentation. I have discussed in detail with the resident the findings and plan of treatment as documented by the resident. I agree with their findings and treatment plan. I will continue to follow the patient and offer further guidance to the patients care as necessary during this hospital stay. GRIFFIN MARTINS DO Sep 17, 2018 12:13 PEDRITO CASTILLO MD Sep 17, 2018 14:28
[2018-09-17] MEDS: MEROPENEM INJ 1 GM in APPROPRIATE DILUENT 1 EA IV SCH (17:10)
[2018-09-17 17:59] LABS: HEMATOCRIT 28.5 % (36.0-47.0); HEMOGLOBIN 9.3 g/dl (12.0-15.5)
--- NOTE | 2018-09-17 20:41 | ECGEPIP ---
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
[2018-09-17] MEDS: GENTAMICIN SULFATE 0.1% OINT 15 GM TOP SCH (20:52)
--- NOTE | 2018-09-17 21:51 | IPN ---
DATE: 09/17/2018 The patient is seen and examined this morning at the bedside. She is postop day #1 from laparoscopic peritoneal dialysis (PD) catheter revision and replacement. She did have a rapid PD exchange this afternoon with 2 liters of fluid instilled, and it returned back grossly bloody. She had a drop in hemoglobin and is receiving 1 unit of packed red blood cells. She had a hemodialysis treatment yesterday without any issues. Her blood pressures were soft this morning, and she received IV fluids. She also received a dose of Narcan this morning. She reports abdominal pain, which is her currently adequately controlled. Temperature 97.0, pulse 75, respiratory rate 17, blood pressure 113/53, saturating 100% on room air. Intake yesterday was 690, dialysis yesterday removed 1300. Weight on the bed scale today is not recorded. General: The patient is seen lying in bed, awake, alert, oriented, in no distress. Extraocular muscles are intact. The conjunctivae are not pale. Tongue is moist. Neck is supple. Jugular veins are not elevated. Cardiac: S1, S2, regular rate and rhythm. Absolutely no edema in the peripheries. Lungs are clear to auscultation bilaterally. No crackles, rale or wheeze. Abdomen: She has pain with gentle palpation of the abdomen. There is no distension. There are bowel sounds. New PD catheter is noted with a clean exit site. Extremities are negative for clubbing or edema. There is a graft in the right thigh which is patent. Neurologic: She is oriented times three. No focal deficits. Psychiatric: Appropriate mood and affect. LABORATORY DATA: White count 9.7, hemoglobin 8.6, platelets 114. Sodium 142, potassium 4.6, bicarbonate 29. Inpatient medications reviewed by myself. I discontinued the lisinopril. She received several small boluses of normal saline. She also received a dose of Narcan this morning. Her pain medications have been adjusted per the primary team. Remainder of medications are unchanged from prior. PROBLEMS: 1. End-stage renal disease with recent malfunctioning of the PD catheter, status post one session of hemodialysis on September 16, 2018 and subsequently status post PD catheter revision and replacement on September 16, 2018. Patient is going to receive low volume exchanges from the newly placed PD catheter. In view of her soft blood pressures, we will use 1.5% Dianeal at a low volume of only 1 liter to be exchanged every 4 hours. She does have significant hemoperitoneum and continued use of the PD catheter with low volume flushes and exchanges should help with the same. Her electrolytes are acceptable. 2. Hypertension. The patient has actually had borderline blood pressure readings today and systolic was as low as 82/52. I note she has received some boluses of normal saline. I am discontinuing her lisinopril, and I have added generous holding parameters to her isosorbide. 3. Acute on chronic anemia. The patient has a baseline hemoglobin of around 10, that is related to her chronic renal failure. Postoperatively, though, she has had blood loss related to the new PD catheter placement and hemoperitoneum. She is receiving 1 unit of packed red blood cells today, and we are restarting her on Aranesp and we will also check her iron stores. 4. Thrombocytopenia. Platelet count noted to be improved today. CT abdomen and pelvis with contrast was done and report is pending. 5. Chronic systolic congestive heart failure. Baseline ejection fraction 25-30%. Her volume status seems reasonable. She is comfortable on room air. Her blood pressures were soft postoperatively, and she received some fluid boluses. I am discontinuing her lisinopril. At present, we will do low volume PD exchanges, but if needed, she can receive further hemodialysis treatments. We will monitor her volume status closely for signs of fluid overload.
[2018-09-18] VITALS (18 sets, daily range): BP systolic 106–203; BP diastolic 54–86
[2018-09-18] MEDS ORDERED: NALOXONE INJ 0.4 MG/1 ML VIAL (J2310) ONE (03:17)
--- NOTE | 2018-09-18 05:19 | REP ---
Clinical: Upper abdominal pain. Thrombocytopenia. Technique: Axial contrast enhanced images of the abdomen using 100 ml Isovue 370 intravenous contrast material with coronal and sagittal re-formations. Comparison: 09/13/2018. Findings: Lung bases demonstrate moderate lower lobe atelectasis and small right pleural effusion. Moderate to significant amount of ascites and small amount of pneumoperitoneum essentially unchanged and possibly related to peritoneal dialysis. Underlying pathology including bowel perforation cannot be excluded. Visualized portions of the small large bowel raise the possibility of enterocolitis. Liver, spleen, pancreas, gallbladder and bilateral adrenal glands appear normal. Kidneys demonstrate stable mild atrophic changes along with renovascular calcifications and no evidence for hydronephrosis. Atherosclerotic changes to the aorta and vasculature noted without aneurysm. No obvious, significant adenopathy identified. Osseous structures are intact. Impression: 1. Moderate bibasilar atelectasis and small right pleural effusion slightly increased from prior examination. 2. Moderate amount of ascites and pneumoperitoneum essentially unchanged and possibly related to peritoneal dialysis although bowel perforation cannot definitively be excluded. 3. Suggestions for possible enterocolitis with mild wall thickening to the bowel. However this may be secondary to chronic peritoneal fluid irritation. Electronically Signed by Bin Liang MD 09/18/2018 05:10 A
[2018-09-18] MEDS: LEVOTHYROXINE 75MCG TABLET (0.075MG) PO SCH (05:47)
[2018-09-18 06:14] LABS: HEMATOCRIT 25.6 % (36.0-47.0); HEMOGLOBIN 7.8 g/dl (12.0-15.5); MEAN CORPUSCULAR HGB CONC 30.5 g/dl (32.0-36.5); MEAN CORPUSCULAR VOLUME 98.5 fl (80.0-96.0); WHITE BLOOD COUNT 5.7 10^3/uL (4.0-10.0)
[2018-09-18 06:15] LABS: PLATELET COUNT, AUTOMATED 83 10^3/uL (150-450)
[2018-09-18 06:35] LABS: PERCENT SATURATION 43.1 % (13.2-45.0)
[2018-09-18 06:39] LABS: CALCIUM LEVEL 8.1 MG/DL (8.5-10.1); CREATININE FOR GFR 7.45 MG/DL (0.55-1.30); GLOMERULAR FILTRATION RATE 6.2 (>58)
[2018-09-18] MEDS: HumaLOG INSULIN (NovoLOG) PER UNIT SC SCH ×4 (07:30→21:00)
[2018-09-18] MEDS: SUCRALFATE 1 GM TAB PO SCH ×4 (07:30→21:20)
[2018-09-18] MEDS: NYSTATIN 500,000 U/5 ML SUSP UDC SS SCH ×4 (09:00→21:21)
[2018-09-18] MEDS: METOPROLOL TART 25 MG TABLET PO SCH ×3 (09:00→21:20)
[2018-09-18] MEDS: CALCITRIOL 0.25 MCG CAP (S0169) PO SCH (09:00)
[2018-09-18] MEDS: PRENATAL VITAMINS CHEWABLE TABLET PO SCH (09:00)
--- NOTE | 2018-09-18 09:27 | REP ---
CHEST, PORTABLE: AP portable view of the chest is performed. There appears to be linear atelectatic changes in each lung base. The pleural angles are sharp. The heart is not enlarged. The mediastinal silhouette is unremarkable. IMPRESSION: Mild bibasilar atelectatic change. Electronically Signed by Eusebio Marlow MD 09/19/2018 08:53 A
[2018-09-18 09:37] LABS: MB/CK RELATIVE INDEX 2.32 (< OR =4); TROPONIN I 0.04 NG/ML (< 0.10)
[2018-09-18] MEDS: ISOSORBIDE MON. (IMDUR) 30 MG XR TAB PO SCH (10:06)
--- NOTE | 2018-09-18 10:41 | IPNPDOC ---
Date Seen The patient was seen on 09/18/18. Progress Note Vascular surgery Dr Bunch. HPI: Pt is a 48yo F with End-stage renal disease, previously on peritoneal dialysis however, has had recurrent malfunctioning issues of the PD catheter and has not had any adequate dialysis treatments for the past few days. Peritonitis workup was negative with unremarkable peritoneal cell count and negative culture. S/P PD catheter removal and re insertion 09/16/18. The pt reports generalized abdominal pain this AM. Nursing reports that she has had blood in PD cath flushes, this has persisted. Denies any fevers, chills, weakness, fatigue, Headache, Chest Pain, Shortness of breath, cough, palpitations, abdominal pain, N/V/D or changes in bowel or bladder habits. PMH End-stage renal disease on peritoneal dialysis, diabetes mellitus type 2, hypertension, hyperlipidemia, systolic congestive heart failure with ejection fraction 25-30% at baseline, pericardial effusion status post pericardiocentesis in 2016, peripheral vascular disease, chronic anemia, peripheral neuropathy, hypothyroidism, diabetic neuropathy and retinopathy Surgical History Cardiac catheterization in March 2016 without stent placement, hysterectomy, right foot biopsy, right chest tube placement in 2015, pericardial centesis with tube pericardiostomy, section, tubal ligation, left upper extremity AV fistula creation leading to steal syndrome following which it was ligated with placement of right lower extremity graft, kidney and liver biopsies PE: GEN: 48yoF, appears stated age. HEENT: Normocephalic, atraumatic. Sclera are nonicteric. Conjunctiva without injection. Moist mucous membranes. ABD: Round, soft, non distended, TTP across lower abdomen. PD cath in place. Dressings clean and dry. EXT: No lower extremity edema appreciated. SKIN: [place], dry, warm. No rashes. NEURO: No focal deficits appreciated. A&P: 1. H/O recurrent nonfunctioning PD catheter. S/P PD catheter removal and re insertion 09/16/18. Pt is reviewed and examined this AM as per Dr Bunch. He is aware of bloody PD cath drainage. PD cath in place, dressings clean and dry. Afebrile. WBC 5.7 Hgb 7.8 trend down. Pt remains on IV Meropenem, as per primary team. Transfer to ICU Hold PD cath flushes for now. NPO. Plan as per Dr Bunch is for OR for Ex Lap this afternoon to check for source of bleeding. 2. Anemia. S/P 1 u PRBC 09/17/18. Agree with transfusion x 2 U PRBC this AM. Aranesp as per nephrlogy. PT/PTT 09/17/18. 3. ESRD. HD as per Nephrology. 4. hypotension. BP improved 120-130 systolic. S/P IVF as per primary team. Monitor. VS, I&O, 24H, Fishbone Vital Signs/I&O Vital Signs Date Time Temp Pulse Resp B/P (MAP) Pulse Ox O2 Delivery O2 Flow Rate FiO2 09/18/18 10:08 97.1 74 16 138/64 (88) 100 2.0 I&O- Last 24 Hours up to 6 AM 09/18/18 06:00 Intake Total 6587 ml Output Total 5400 ml Balance 1187 ml Laboratory Data 24H LABS Laboratory Tests 2 09/17/18 11:17: Prothrombin Time 14.9H, Prothromb Time International Ratio 1.15, Activated Partial Thromboplast Time 30.4 09/17/18 11:37: Bedside Glucose (Misc Panel) 107H 09/17/18 16:34: Bedside Glucose (Misc Panel) 123H 09/17/18 20:20: Bedside Glucose (Misc Panel) 141H 09/18/18 05:32: Nucleated Red Blood Cells % (auto) 0.0, Immature Platelet Fraction 4.0, Anion Gap 8, Glomerular Filtration Rate 6.2L, Blood Urea Nitrogen 20H, Creatinine 7.45H, Sodium Level 138, Potassium Level 4.0, Chloride Level 105, Carbon Dioxide Level 25, Calcium Level 8.1L, Iron Level 88, Total Iron Binding Capacity 204L, Transferrin % Saturation 43.1, Ferritin 958H 09/18/18 08:52: Total Creatine Kinase 99, Creatine Kinase MB 2.0, Creatine Kinase MB Relative Index 2.32, Troponin I 0.04 CBC/BMP Laboratory Tests 09/17/18 17:30 09/18/18 05:32 Red Blood Count 2.60 L, Mean Corpuscular Volume 98.5 H, Mean Corpuscular Hemoglobin 30.0, Mean Corpuscular Hemoglobin Concent 30.5 L, Red Cell Distribution Width 15.9 H, Calcium Level 8.1 L Microbiology Microbiology 09/13/18 Acid Fast Stain, Received Pending 09/13/18 Mycobacterial Culture, Received Pending 09/13/18 Fungal Smear, Received Pending 09/13/18 Fungal Culture, Received Pending 09/13/18 Gram Stain - Final, Complete 09/13/18 Body Fluid Culture - Final, Complete Staphylococcus Hominis Ssp Williams 09/13/18 Anaerobic Culture - Final, Complete 09/13/18 Body Fluid Culture - Final, Complete 09/12/18 Gram Stain - Final, Complete 09/12/18 Body Fluid Culture - Final, Complete 09/13/18 Stool Lactoferrin - Final, Complete 09/13/18 Gastrointestinal Tract Panel (PCR) - Final, Complete Sharon Ziegler Sep 18, 2018 10:41
--- NOTE | 2018-09-18 11:59 | IPNPDOC ---
Text Note Date of Service The patient was seen on 09/18/18. NOTE SUBJECTIVE: Patient seen during morning rounds. She is now in ICU. She complains of abdominal pain in b/l upper quadrants, it isn't improved. Otherwise patient denies chest pain, shortness breath, nausea, vomiting, fevers, chills. OBJECTIVE PHYSICAL EXAMINATION: VITAL SIGNS: Please see below. GENERAL: Pleasant 48 yo female sitting up in bed, awake alert oriented speaking in complete sentences, some minimal distress from abdominal discomfort HEENT: Moist mucous membranes, no JVD, EOM CARDIOVASCULAR: S1 S2 regular no additional heart sounds appreciated. RESPIRATORY: Clear to auscultation bilaterally, no crackles, rales or wheezing ABDOMINAL: nabsx4, continued pain to light palpation throughout abdomen, no distension, no rebound ridgity or guarding, no hepatosplenomegaly or masses, PD cath was in place lower abdomen area, dressing and surrounding skin is dry and clean, no erythema appreciated nor pus/blood exudation EXTREMITIES: No clubbing cyanosis or edema NEUROLOGICAL: Spontaneously moves all 4 extremities, no focal deficits appreciated PSYCHOLOGICAL: Appropriate LABORATORY DATA, MICROBIOLOGY: Please see below. ASSESSMENT AND PLAN: This is a 48 yo female who is complaining of consistent abdominal pain during HD. PROBLEMS: 1. Chronic abdominal pain -This unfortunately is worsened today, she continues to have blood in her peritoneal fluid. Apparently PD cath flushes contained blood, she is planned for OR for ex. lap to hopefully identify source of bleeding. Peritoneal fluid was positive for Staph Hominis. She has had an extensive work up to evaluate for etiology of abdominal pain. She had negative PCR GI panel, and positive stool lactoferrin which could suggest intestinal inflammation. She has currently peritoneal fluid pending test for Mycobacterium cultures and fungal smears. She continues on Meropenem. Less likely peritonitis from PD catheter. She is s/p surgery with Dr. Bunch this morning for PD cath revision and is doing well. She has also had an EGD on 09-13-18, that only showed esophagitis which could be contributing to her current symptoms. She continues on Protonix and Carafate. CT ab/pelvis showed Moderate bibasilar atelectasis and small right pleural effusion slightly increased from prior examination. 2. Moderate amount of ascites and pneumoperitoneum essentially unchanged and possibly related to peritoneal dialysis although bowel perforation cannot definitively be excluded. 3. Suggestions for possible enterocolitis with mild wall thickening to the bowel. However this may be secondary to chronic peritoneal fluid irritation.She is NPO. 2. Thrombocytopenia -83 today. Peripheral smear showed anemia chronic disease, thrombocytopenia likely secondary to HD. CT ab/pelvis w contrast performed with above results. S he is going for ex lap today to hopefully identify source of bleed., her thrombocytopenia could be secondary to this. We will continue to monitor for now. CT ab/pelvis w/o contrast showed pneumoperitoneum likely related to peritoneal dialysis catheter, perforated hollow viscus cannot be entirely exc luded. Interval development of moderate to large ascites. Interval increase in right pleural effusion. Suspect volume overload. Cholelithiasis. No specific evidence of acute cholecystitis. 3.End-stage renal disease on peritoneal dialysis with malfunctioning PD catheter: -Case was discussed with Dr. Yost as well as Dr Mcdaniel 09/14/18 -S/p PD cath revision 09.16.[address] Bunch, ex lap today as pts PD flushes contained blood 4. Unresponsiveness event? -likely secondary to pain medications from PD cath revision that day -apparently pt had rapid assessment performed 2 nights ago for unresponsiveness, she was given Narcan and had some resolution of symptoms, was also hypotensive, she was given fluid resuscitation. Reviewed EKG from after 6 am and was unrevealing for etiology of acute unresponsiveness. - Was holding all possible sedating medications., the patient did not remember what occurred that night, she had no recollection. She is currently AAOx3. She is on telemetry and rate is in the 70's currently. -Continue to monitor for now 5. Hypokalemia: -Resolved 4.0 today 6. Chronic systolic congestive heart failure baseline ejection fraction 25-30%: -Continue metoprolol, lisinopril, HD as per nephro 7. Diabetes mellitus type 2 on long-term insulin therapy complicated by diabetic neuropathy as well as retinopathy -Hold long-acting insulin given patient's nausea and vomiting -C/w SSI 8. Uncontrolled hypertension: -Now controlled -Continue metoprolol, lisinopril and Imdur 9. Hypothyroidism: -Continue Levothyroxine 10. GI/DVT PPX: -PPI -heparin d/c in light of thrombocytopenia DISPOSITION: Pt scheduled for OR today for ex lap to hopefully identify source of bleeding, PD cath flushes demonstrated blood VS,Fishbone, I+O VS, Fishbone, I+O Laboratory Tests 09/17/18 17:30 09/18/18 05:32 Red Blood Count 2.60 L, Mean Corpuscular Volume 98.5 H, Mean Corpuscular Hemoglobin 30.0, Mean Corpuscular Hemoglobin Concent 30.5 L, Red Cell Distribution Width 15.9 H, Calcium Level 8.1 L Vital Signs Date Time Temp Pulse Resp B/P (MAP) Pulse Ox O2 Delivery O2 Flow Rate FiO2 09/18/18 10:30 74 16 159/69 (99) 97 2.0 09/18/18 10:08 97.1 I&O- Last 24 Hours up to 6 AM 09/18/18 06:00 Intake Total 6587 ml Output Total 5400 ml Balance 1187 ml GME ATTESTATION GME ATTESTATION My faculty preceptor for this patient encounter was physically present during the encounter and was fully available. All aspects of the patient interview, examination, medical decision making process, and medical care plan development were reviewed and approved by the faculty preceptor. The faculty preceptor is aware and concurs with the plan as stated in the body of this note and will attest to such by his/her cosignature. ATTENDING NOTE I, Pedrito Castillo, have both independently examined this patient as well as reviewed the documentation. I have discussed in detail with the resident the findings and plan of treatment as documented by the resident. I agree with their findings and treatment plan. I will continue to follow the patient and offer further guidance to the patients care as necessary during this hospital stay. GRIFFIN MARTINS DO Sep 18, 2018 11:59 PEDRITO CASTILLO MD Sep 18, 2018 13:53
[2018-09-18 14:31] LABS: BASO # 0.1 10^3/uL (0.0-0.2); BASO % 0.9 % (0.0-1.0); EOS # 0.4 10^3/uL (0.0-0.50); EOS % 5.2 % (0.0-3.0); HEMATOCRIT 36.3 % (36.0-47.0); HEMOGLOBIN 11.8 g/dl (12.0-15.5); LYMPH # 1.6 10^3/uL (1.5-4.5); LYMPH % 22.5 % (24.0-44.0); MEAN CORPUSCULAR HEMOGLOBIN 30.3 pg (27.0-33.0); MEAN CORPUSCULAR HGB CONC 32.5 g/dl (32.0-36.5); MEAN CORPUSCULAR VOLUME 93.3 fl (80.0-96.0); MONO # 0.8 10^3/uL (0.0-0.8); MONO % 11.2 % (0.0-5.0); NEUTROPHILS # 4.2 10^3/uL (1.8-7.7); NEUTROPHILS % 59.6 % (36.0-66.0); RED BLOOD COUNT 3.89 10^6/uL (4.00-5.40)
[2018-09-18 14:32] LABS: PLATELET COUNT, AUTOMATED 94 10^3/uL (150-450)
[2018-09-18 14:56] LABS: MB/CK RELATIVE INDEX 2.44 (< OR =4); TROPONIN I 0.03 NG/ML (< 0.10)
[2018-09-18] MEDS ORDERED: LIDOCAINE 1% SDV INJ 30 ML VIAL As Ordered ONE (14:59)
[2018-09-18] MEDS ORDERED: BUPIVACAINE HCL 0.5% 30 ML VIAL As Ordered ONE (14:59)
[2018-09-18] MEDS: PANTOPRAZOLE 40MG TAB (PROTONIX) PO SCH ×2 (16:41→21:20)
[2018-09-18] MEDS: MEROPENEM INJ 1 GM in APPROPRIATE DILUENT 1 EA IV SCH (16:41)
--- NOTE | 2018-09-18 19:57 | ECGEPIP ---
[facility] Test Date: 2018-09-18 Pat Name: MARINA WHITE Department: Room: [place] [address] Gender: Female Acute Care Nurse Practitioner: BRISEYDA : 1970 Requested By: SAURAV ALBARADO Order Number: [id number] Reading MD: Ameya Chavez Measurements Intervals [place] Rate: 76 P: 34 MA: 153 QRS: 72 QRSD: 94 T: 93 QT: 396 QTc: 447 Interpretive Statements SINUS RHYTHM NONSPECIFIC ST & T-WAVE ABNORMALITY No change from the previous day. Electronically Signed on 09-18-2018 19:56:40 EDT by Ameya Chavez
[2018-09-18] MEDS: GENTAMICIN SULFATE 0.1% OINT 15 GM TOP SCH (21:24)
--- NOTE | 2018-09-18 22:20 | IPN ---
DATE: 09/18/2018 PERLA Mascorro seen and examined this morning at the bedside in the intensive care unit. She reports peritoneal dialysis exchanges overnight remains grossly bloody. Hemoglobin downtrended this morning to 7.8 and her PD exchanges were held via vascular surgery. She is nothing by mouth (npo) and receiving 2 units of packed red blood cells and plan is for her to go to the OR later this afternoon. Her blood pressures are improved as compared to prior and she complains of bilateral lower quadrant pressure. Vital signs: Temperature 97.8, pulse 73, respiratory rate 16, blood pressure 159/69, saturating 97% on 2 liters nasal cannula. Intake yesterday and output yesterday shows net positive 900 mL. Weight in the bed scale today is 69.5 kg which is increased from prior. General: The patient is seen lying down in bed in the intensive care unit awake, alert, oriented, comfortable, in no acute distress. Extraocular muscles are intact. Tongue is moist. Neck is supple. Jugular veins are not elevated. Heart sounds are regular, S1, S2. Absolutely no edema in the peripheries. Lungs are clear to auscultation bilaterally. No crackle, rale or wheeze. Abdomen is soft. The PD catheter exit site is clean, dry and intact. The extension set of the PD catheter shows blood in the tubing. The lower quadrants are tender to light palpation. There are bowel sounds. The right thigh has a patent AV graft. Neurologic: She is oriented times four. No focal deficits. Psychiatric: Appropriate mood and effect. Skin: Normal turgor and temperature. LABORATORY DATA White count 7.0, hemoglobin 7.8, platelet 83. Sodium 138, potassium 4.0, bicarbonate 25. T-sat 43%. INPATIENT MEDICATIONS: Reviewed by myself. Her lisinopril was discontinued. Holding parameters are added to the isosorbide. She is ordered for a dose of Aranesp on the weekend. Remainder of medications are unchanged from prior. PROBLEMS: 1. End-stage renal disease. Dialysis dependent. Recently had PD catheter malfunction. Status post PD catheter revision/replacement. Postop day 1 with grossly bloody peritoneal dialysate return from PD catheter flushes. Received 1 unit packed red blood cell yesterday and hemoglobin again dropped down to 7.8. PD flashes have been held and she is receiving two more units of packed red blood cell and n.p.o. for the OR later this afternoon. She did have a hemodialysis treatment on Sunday and if PD catheter cannot be successfully used I will plan to do another hemodialysis treatment tomorrow. 2. Chronic systolic congestive heart failure with ejection fraction of 25-30%. Volume status is acceptable at present, but she has had suboptimal dialysis for the past week and she has been receiving both IV fluids and blood products. I feel she is likely to need a hemodialysis treatment on for some gentle fluid removal. She is not yet able to receive effective peritoneal dialysis due to ongoing bloody PD fluid. 3. Acute on chronic anemia. The patient's baseline hemoglobin is around 10 and that is related to her chronic renal failure. Postoperatively though she is having blood loss related to the PD catheter that was revised/replaced and hemoperitoneum. She has so far received 3 units of packed red blood cells total. Her iron stores are adequate. She will receive a dose of Aranesp over the weekend. 4. Hypertension. Blood pressures were soft yesterday. Systolic was as low as 80s over 50s. She received normal saline boluses yesterday, blood pressure is acceptable today but she is n.p.o. and going to the OR, hence I am discontinuing her lisinopril and I have added generous holding parameters to her isosorbide. 5. Thrombocytopenia. She is not receiving any heparin with dialysis and her platelet count seems to have stabilized.
[2018-09-19] VITALS (8 sets, daily range): BP systolic 141–186; BP diastolic 65–81
[2018-09-19 04:39] LABS: HEMATOCRIT 33.6 % (36.0-47.0); HEMOGLOBIN 10.8 g/dl (12.0-15.5); MEAN CORPUSCULAR HEMOGLOBIN 30.3 pg (27.0-33.0); MEAN CORPUSCULAR HGB CONC 32.1 g/dl (32.0-36.5); MEAN CORPUSCULAR VOLUME 94.4 fl (80.0-96.0); RED BLOOD COUNT 3.56 10^6/uL (4.00-5.40); WHITE BLOOD COUNT 6.4 10^3/uL (4.0-10.0)
[2018-09-19 04:40] LABS: PLATELET COUNT, AUTOMATED 94 10^3/uL (150-450)
[2018-09-19 05:00] LABS: CALCIUM LEVEL 7.8 MG/DL (8.5-10.1); CREATININE FOR GFR 7.12 MG/DL (0.55-1.30); GLOMERULAR FILTRATION RATE 6.6 (>58); POTASSIUM SERUM 3.7 MEQ/L (3.5-5.1)
[2018-09-19] MEDS: LEVOTHYROXINE 75MCG TABLET (0.075MG) PO SCH (05:41)
[2018-09-19] MEDS: HumaLOG INSULIN (NovoLOG) PER UNIT SC SCH ×4 (07:30→20:19)
[2018-09-19] MEDS: NYSTATIN 500,000 U/5 ML SUSP UDC SS SCH ×4 (08:42→21:00)
[2018-09-19] MEDS: SUCRALFATE 1 GM TAB PO SCH ×4 (08:43→20:18)
[2018-09-19] MEDS: PRENATAL VITAMINS CHEWABLE TABLET PO SCH (08:43)
[2018-09-19] MEDS: PANTOPRAZOLE 40MG TAB (PROTONIX) PO SCH ×2 (08:43→20:18)
[2018-09-19] MEDS: METOPROLOL TART 25 MG TABLET PO SCH ×2 (08:44→20:18)
[2018-09-19] MEDS: ISOSORBIDE MON. (IMDUR) 30 MG XR TAB PO SCH (08:44)
[2018-09-19] MEDS: CALCITRIOL 0.25 MCG CAP (S0169) PO SCH (08:44)
[2018-09-19] MEDS ORDERED: LISINOPRIL 10 MG TAB PO SCH (09:00)
--- NOTE | 2018-09-19 10:08 | IPNPDOC ---
Date Seen The patient was seen on 09/19/18. Progress Note Vascular surgery Dr Bunch. HPI: Pt is a 48yo F with End-stage renal disease, previously on peritoneal dialysis however, has had recurrent malfunctioning issues of the PD catheter and has not had any adequate dialysis treatments for the past few days. Peritonitis workup was negative with unremarkable peritoneal cell count and negative culture. S/P PD catheter removal and re insertion 09/16/18. OR was put on hold 09/18/[address] Bunch as pt was feeling less abdominal pain and having less blood in PD cath fluid. This AM, the pt reports she is feeling better with less abdominal pain. Nursing reports that she has had less blood in PD cath flushes. Denies any fevers, chills, weakness, fatigue, Headache, Chest Pain, Shortness of breath, cough, palpitations, abdominal pain, N/V/D or changes in bowel or bladder habits. PMH End-stage renal disease on peritoneal dialysis, diabetes mellitus type 2, hypertension, hyperlipidemia, systolic congestive heart failure with ejection fraction 25-30% at baseline, pericardial effusion status post pericardiocentesis in 2016, peripheral vascular disease, chronic anemia, peripheral neuropathy, hypothyroidism, diabetic neuropathy and retinopathy Surgical History Cardiac catheterization in March 2016 without stent placement, hysterectomy, right foot biopsy, right chest tube placement in 2016, pericardial centesis with tube pericardiostomy, section, tubal ligation, left upper extremity AV fistula creation leading to steal syndrome following which it was ligated with placement of right lower extremity graft, kidney and liver biopsies PE: GEN: 48yoF, appears stated age. HEENT: Normocephalic, atraumatic. Sclera are nonicteric. Conjunctiva without injection. Moist mucous membranes. ABD: Round, soft, non distended, NT. PD cath in place. Dressings clean and dry. EXT: No lower extremity edema appreciated. SKIN: [place], dry, warm. No rashes. NEURO: No focal deficits appreciated. A&P: 1. H/O recurrent nonfunctioning PD catheter. S/P PD catheter removal and re insertion 09/16/18. Overall Pt is feeling better. Less blood reported in PD cath drainage. PD cath in place, dressings clean and dry. Afebrile. WBC 6.4 Hgb 10.8. Pt remains on IV Meropenem, as per primary team. Pt is reviewed and discussed with Dr Bunch. Can change PD cath flushes to 1500cc Q6hr. PD cath ok to use from Dr Bunch's standpoint. 2. Anemia. S/P 3 u PRBC. Aranesp as per nephrlogy. Hgb 10.8 3. ESRD. Dialysis as per Nephrology. VS, I&O, 24H, Fishbone Vital Signs/I&O Vital Signs Date Time Temp Pulse Resp B/P (MAP) Pulse Ox O2 Delivery O2 Flow Rate FiO2 09/19/18 08:44 71 186/81 09/19/18 04:00 97.9 16 98 09/18/18 21:12 1.0 I&O- Last 24 Hours up to 6 AM 09/19/18 06:00 Intake Total 6340 ml Output Total 5500 ml Balance 840 ml Laboratory Data 24H LABS Laboratory Tests 2 09/18/18 11:41: Bedside Glucose (Misc Panel) 161H 09/18/18 14:06: Immature Granulocyte % (Auto) 0.6, White Blood Count 7.0, Red Blood Count 3.89L, Hemoglobin 11.8#L, Hematocrit 36.3, Mean Corpuscular Volume 93.3, Mean Corpuscular Hemoglobin 30.3, Mean Corpuscular Hemoglobin Concent 32.5, Red Cell Distribution Width 15.7H, Platelet Count 94L, Neutrophils (%) (Auto) 59.6, Lymphocytes (%) (Auto) 22.5L, Monocytes (%) (Auto) 11.2H, Eosinophils (%) (Auto) 5.2H, Basophils (%) (Auto) 0.9, Neutrophils # (Auto) 4.2, Lymphocytes # (Auto) 1.6, Monocytes # (Auto) 0.8, Eosinophils # (Auto) 0.4, Basophils # (Auto) 0.1, Nucleated Red Blood Cells % (auto) 0.0, Total Creatine Kinase 90, Creatine Kinase MB 2.0, Creatine Kinase MB Relative Index 2.44, Troponin I 0.03# 09/18/18 17:22: Bedside Glucose (Misc Panel) 170H 09/18/18 21:12: Bedside Glucose (Misc Panel) 90 09/19/18 04:07: Nucleated Red Blood Cells % (auto) 0.3H, Anion Gap 7L, Glomerular Filtration Rate 6.6L, Blood Urea Nitrogen 20H, Creatinine 7.12H, Sodium Level 136, Potassium Level 3.7, Chloride Level 104, Carbon Dioxide Level 25, Calcium Level 7.8L 09/19/18 07:44: Bedside Glucose (Misc Panel) 127H CBC/BMP Laboratory Tests 09/18/18 14:06 Red Blood Count 3.89 L, Mean Corpuscular Volume 93.3, Mean Corpuscular Hemoglobin 30.3, Mean Corpuscular Hemoglobin Concent 32.5, Red Cell Distribution Width 15.7 H, Neutrophils (%) (Auto) 59.6, Lymphocytes (%) (Auto) 22.5 L, Monocytes (%) (Auto) 11.2 H, Eosinophils (%) (Auto) 5.2 H, Basophils (%) (Auto) 0.9, Neutrophils # (Auto) 4.2, Lymphocytes # (Auto) 1.6, Monocytes # (Auto) 0.8, Eosinophils # (Auto) 0.4, Basophils # (Auto) 0.1 09/19/18 04:07 Red Blood Count 3.56 L, Mean Corpuscular Volume 94.4, Mean Corpuscular Hemoglobin 30.3, Mean Corpuscular Hemoglobin Concent 32.1, Red Cell Distribution Width 15.6 H, Calcium Level 7.8 L Microbiology Microbiology 09/13/18 Acid Fast Stain, Received Pending 09/13/18 Mycobacterial Culture, Received Pending 09/13/18 Fungal Smear, Received Pending 09/13/18 Fungal Culture, Received Pending 09/13/18 Gram Stain - Final, Complete 09/13/18 Body Fluid Culture - Final, Complete Staphylococcus Hominis Ssp Williams 09/13/18 Anaerobic Culture - Final, Complete 09/13/18 Body Fluid Culture - Final, Complete 09/12/18 Gram Stain - Final, Complete 09/12/18 Body Fluid Culture - Final, Complete 09/13/18 Stool Lactoferrin - Final, Complete 09/13/18 Gastrointestinal Tract Panel (PCR) - Final, Complete Sharon Ziegler Sep 19, 2018 10:08
[2018-09-19 12:19] LABS: HEMATOCRIT 33.8 % (36.0-47.0); HEMOGLOBIN 11.1 g/dl (12.0-15.5)
--- NOTE | 2018-09-19 13:42 | IPNPDOC ---
Text Note Date of Service The patient was seen on 09/19/18. NOTE SUBJECTIVE: Patient seen during morning rounds. She states that her abdominal pain feels a lot better now. Otherwise patient denies chest pain, shortness breath, nausea, vomiting, fevers, chills. OBJECTIVE PHYSICAL EXAMINATION: VITAL SIGNS: Please see below. GENERAL: Pleasant 48 yo female sitting up in bed, awake alert oriented speaking in complete sentences, NAD HEENT: Moist mucous membranes, no JVD, EOM CARDIOVASCULAR: S1 S2 regular no additional heart sounds appreciated. RESPIRATORY: Clear to auscultation bilaterally, no crackles, rales or wheezing ABDOMINAL: nabsx4, minimal pain to light palpation throughout abdomen, no distension, no rebound ridgity or guarding, no hepatosplenomegaly or masses, PD cath was in place L lower abdomen area, dressing and surrounding skin is dry and clean, no erythema appreciated nor pus/blood exudation, same for ex. lap insertion points in abdomen EXTREMITIES: No clubbing cyanosis or edema NEUROLOGICAL: Spontaneously moves all 4 extremities, no focal deficits appreciated PSYCHOLOGICAL: Appropriate LABORATORY DATA, MICROBIOLOGY: Please see below. ASSESSMENT AND PLAN: This is a 48 yo female who is complaining of consistent a bdominal pain during HD. PROBLEMS: 1. Chronic abdominal pain -Subha feels much better today with her abdominal pain, there has been less blood in her PD cath exchanges. Her flushes were changed to 1500 cc q6h by vascular and it appears as if her PD cath should be ok to use for dialysis., per vascular note. Peritoneal fluid was positive for Staph Hominis. She has had an extensive work up to evaluate for etiology of abdominal pain. She had negative PCR GI panel, and positive stool lactoferrin which could suggest intestinal inflammation. She has currently peritoneal fluid pending test for Mycobacterium cultures and fungal smears. She continues on Meropenem. Less likely peritonitis from PD catheter. She is s/p surgery with Dr. Bunch for PD cath revision .07.02. . She has also had an EGD on 09-13-18, that only showed esophagitis which could be contributing to her current symptoms. She continues on Protonix and Carafate. CT ab/pelvis showed Moderate bibasilar atelectasis and small right pleural effusion slightly increased from prior examination. 2. Moderate amount of ascites and pneumoperitoneum essentially unchanged and possibly related to peritoneal dialysis although bowel perforation cannot definitively be excluded. 3. Suggestions for possible enterocolitis with mild wall thickening to the bowel. However this may be secondary to chronic peritoneal fluid irritation.She is NPO. 2. Thrombocytopenia -Improved again to 94 today. Peripheral smear showed anemia chronic disease, thrombocytopenia likely secondary to HD. CT ab/pelvis w contrast performed with above results. She is going for ex lap today to hopefully identify source of bleed., her thrombocytopenia could be secondary to this. We will continue to monitor for now. CT ab/pelvis w/o contrast showed pneumoperitoneum likely related to peritoneal dialysis catheter, perforated hollow viscus cannot be entirely excluded. Interval development of moderate to large ascites. Interval increase in right pleural effusion. Suspect volume overload. Cholelithiasis. No specific evidence of acute cholecystitis. 3.End-stage renal disease on peritoneal dialysis with malfunctioning PD catheter: -Case was discussed with Dr. Yost as well as Dr Mcdaniel 09/14/18 -S/p PD cath revision 09.16.[address] Bunch, s/p ex lap for pts PD flushes contained blood -seems now PD flushes have contained less blood, pt feels her abdomen pain is much improved -nephrology consulted, appreciate their help 4. Unresponsiveness event? 09.16.18 -this has not occurred again -likely secondary to pain medications from PD cath revision that day 09.16.18 -apparently pt had rapid assessment performed 09.16.18 for unresponsiveness, she was given Narcan and had some resolution of symptoms, was also hypotensive, she was given fluid resuscitation. Reviewed EKG from after 6 am and was unrevealing for etiology of acute unresponsiveness. - Was holding all possible sedating medications., the patient did not remember what occurred that night, she had no recollection. She is currently AAOx3. She is on telemetry and rate is in the 70's currently. -Continue to monitor for now 5. Hypokalemia: -Resolved 3.7 today 6. Chronic systolic congestive heart failure baseline ejection fraction 25-30%: -Continue metoprolol, lisinopril, HD as per nephro 7. Diabetes mellitus type 2 on long-term insulin therapy complicated by diabetic neuropathy as well as retinopathy -Hold long-acting insulin given patient's nausea and vomiting -C/w SSI 8. Uncontrolled hypertension: -Now controlled -Continue metoprolol, lisinopril and Imdur 9. Hypothyroidism: -Continue Levothyroxine 10. GI/DVT PPX: -PPI -heparin d/c in light of thrombocytopenia DISPOSITION: Pts abdominal pain is much improved on examination, her PD flushes contain less blood., vascular has said OK to use catheter for dialysis. She should begin working with physical therapy soon. VS,Fishbone, I+O VS, Fishbone, I+O Laboratory Tests 09/18/18 14:06 Red Blood Count 3.89 L, Mean Corpuscular Volume 93.3, Mean Corpuscular Hemoglobin 30.3, Mean Corpuscular Hemoglobin Concent 32.5, Red Cell Distribution Width 15.7 H, Neutrophils (%) (Auto) 59.6, Lymphocytes (%) (Auto) 22.5 L, Monocytes (%) (Auto) 11.2 H, Eosinophils (%) (Auto) 5.2 H, Basophils (%) (Auto) 0.9, Neutrophils # (Auto) 4.2, Lymphocytes # (Auto) 1.6, Monocytes # (Auto) 0.8, Eosinophils # (Auto) 0.4, Basophils # (Auto) 0.1 09/19/18 04:07 Red Blood Count 3.56 L, Mean Corpuscular Volume 94.4, Mean Corpuscular Hemoglobin 30.3, Mean Corpuscular Hemoglobin Concent 32.1, Red Cell Distribution Width 15.6 H, Calcium Level 7.8 L 09/19/18 11:58 Vital Signs Date Time Temp Pulse Resp B/P (MAP) Pulse Ox O2 Delivery O2 Flow Rate FiO2 09/19/18 08:44 71 186/81 09/19/18 04:00 97.9 16 98 09/18/18 21:12 1.0 I&O- Last 24 Hours up to 6 AM 09/19/18 06:00 Intake Total 6340 ml Output Total 5500 ml Balance 840 ml GME ATTESTATION GME ATTESTATION My faculty preceptor for this patient encounter was physically present during the encounter and was fully available. All aspects of the patient interview, examination, medical decision making process, and medical care plan development were reviewed and approved by the faculty preceptor. The faculty preceptor is a ordaz and concurs with the plan as stated in the body of this note and will attest to such by his/her cosignature. ATTENDING NOTE I, Pedrito Castillo, have both independently examined this patient as well as reviewed the documentation. I have discussed in detail with the resident the findings and plan of treatment as documented by the resident. I agree with their findings and treatment plan. I will continue to follow the patient and offer further guidance to the patients care as necessary during this hospital stay. GRIFFIN MARTINS DO Sep 19, 2018 13:42 PEDRITO CASTILLO MD Sep 19, 2018 14:58
[2018-09-19] MEDS: MEROPENEM INJ 1 GM in APPROPRIATE DILUENT 1 EA IV SCH (15:12)
[2018-09-19 18:46] LABS: HEMATOCRIT 36.5 % (36.0-47.0); HEMOGLOBIN 12.1 g/dl (12.0-15.5)
[2018-09-19] MEDS: LISINOPRIL 10 MG TAB PO SCH (20:19)
[2018-09-19] MEDS: ONDANSETRON 4MG/2ML VIAL (J2405) IV PRN (21:01)
--- NOTE | 2018-09-19 22:22 | REPVR ---
EXAM: CT Abdomen and Pelvis Without Contrast EXAM DATE/TIME: 09/19/2018 9:22 PM CLINICAL HISTORY: 48 years old, female; Abdominal pain; Generalized; Additional info: Abdominal pain and vomiting TECHNIQUE: Imaging protocol: Axial computed tomography images of the abdomen and pelvis without contrast. Coronal and sagittal reformatted images were created and reviewed. Radiation optimization: All CT scans at this facility use at least one of these dose optimization techniques: automated exposure control; mA and/or kV adjustment per patient size (includes targeted exams where dose is matched to clinical indication); or iterative reconstruction. COMPARISON: CT ABD PELVIS W/O CONTRAST 09/13/2018 11:19 PM FINDINGS: Tubes, catheters and devices: Intraperitoneal peritoneal dialysis catheter demonstrated. Mediastinum: There is increased circumferential thickening of the wall of the distal esophagus as well as dilatation of the distal esophagus. There is no hiatal hernia. ABDOMEN: Liver: Normal. No mass. Gallbladder and bile ducts: There are gallstones present. No CT evidence of cholecystitis demonstrated. Pancreas: Normal. No ductal dilation. Spleen: Normal. No splenomegaly. Adrenals: Normal. No mass. Kidneys and ureters: 1.3 cm parapelvic cyst right kidney. Bilateral renal vascular calcifications with nonobstructive calculi in the left kidney. Stomach and bowel: Normal. No obstruction. No mucosal thickening. Appendix: No evidence of appendicitis. PELVIS: Bladder: Unremarkable as visualized. Reproductive: There has been a hysterectomy. ABDOMEN and PELVIS: Intraperitoneal space: There is a moderate amount of free intraperitoneal fluid present. Free intraperitoneal air possibly related to peritoneal dialysis. Bones/joints: No acute fracture. No dislocation. Soft tissues: There is soft tissue edema demonstrated in the abdominal wall, flanks and buttock regions consistent with anasarca. Vasculature: The aorta demonstrates moderate atherosclerotic calcification. Lymph nodes: Normal. No enlarged lymph nodes. IMPRESSION: 1. There is a moderate amount of free intraperitoneal fluid present. 2. Thickened wall of the distal esophagus. Finding may be related to reflux esophagitis however an esophageal neoplasm should be excluded clinically. 3. Free intraperitoneal air possibly related to peritoneal dialysis. 4. There are gallstones present. No CT evidence of cholecystitis demonstrated. 5. Anasarca. 6. There has been a hysterectomy. Electronically signed by: Bry Vyas On 09/19/2018 22:22:02 PM
[2018-09-19] MEDS: GENTAMICIN SULFATE 0.1% OINT 15 GM TOP SCH (23:11)
[2018-09-20] MEDS: LEVOTHYROXINE 75MCG TABLET (0.075MG) PO SCH (05:32)
[2018-09-20 06:00] VITALS: BP 134/64
[2018-09-20 06:27] LABS: HEMATOCRIT 34.4 % (36.0-47.0); HEMOGLOBIN 11.4 g/dl (12.0-15.5); MEAN CORPUSCULAR HEMOGLOBIN 30.8 pg (27.0-33.0); MEAN CORPUSCULAR HGB CONC 33.1 g/dl (32.0-36.5); PLATELET COUNT, AUTOMATED 115 10^3/uL (150-450); WHITE BLOOD COUNT 6.6 10^3/uL (4.0-10.0)
[2018-09-20 06:56] LABS: CREATININE FOR GFR 7.38 MG/DL (0.55-1.30); GLOMERULAR FILTRATION RATE 6.3 (>58); POTASSIUM SERUM 3.9 MEQ/L (3.5-5.1)
[2018-09-20] MEDS: HumaLOG INSULIN (NovoLOG) PER UNIT SC SCH ×4 (07:30→21:00)
--- NOTE | 2018-09-20 07:39 | IPN ---
DATE: 09/19/2018 SUBJECTIVE: Subha seen and examined this morning at the bedside in the intensive care unit. She is feeling much better. She reports her bilateral lower quadrant pressure sensation has improved. The PD fluid has been less bloody. Her hemoglobin has stabilized surgery did not need to take her for an ex lap yesterday because of the overall improvement in her clinical status, blood pressures have been running high. She denies any shortness of breath or chest pain. Temperature 97.5, pulse 73, respiratory rate 12, blood pressure 180/79, saturating 99% on room air. Intake yesterday and output yesterday shows net positive 1.5 liters. Weight in the bed scale today 69.7 kg. General: The patient is seen lying flat in bed in the intensive care unit awake, alert, oriented, comfortable, smiling no acute distress. Extraocular muscles are intact. Tongue is moist. Neck is supple. Jugular veins were not elevated heart sounds are regular S1-S2 absolutely no edema in the peripheries lungs were clear to auscultation bilaterally. No crackle rale or wheeze. Abdomen is soft. The PD catheter exit site is clean, dry and intact. The extensions of the PD catheter show some blood in the tubing the lower quadrants are less tender to light palpation. There are bowel sounds. The right thigh has a patent AV graft. Neurologic: She is oriented times four. No focal deficits. Psychiatric appropriate mood and effect. Skin: Normal turgor and temperature. LABORATORY DATA: Sodium 136, potassium 3.7, bicarbonate 25, BUN 20, hemoglobin 11.1. INPATIENT MEDICATIONS: I increase the lisinopril to 10 mg by mouth twice a day, Aranesp is discontinued. Remainder medications are unchanged from prior. PROBLEMS: 1. End-stage renal disease on peritoneal dialysis recently had PD catheter malfunction now status post PD catheter replacement. Postop day 2. The peritoneal fluid is less bloody her hemoglobin has stabilized surgery did not need to take her for a ex lap yesterday because of improvement in her clinical status. She reports her abdominal pain is also improved from prior. She continues on every 6 hourly PD exchanges with a volume of 1500 with each exchange which she is tolerating well. She received one session of hemodialysis on Sunday but there is no need at present for repeat hemodialysis treatment. 2. Chronic systolic congestive heart failure with ejection fraction of 25-30%. There is likely some mild hypervolemia given her blood pressures are above her usual baseline. She has had suboptimal dialysis for the past week and she has been receiving intermittently both IV fluids and blood products now that she is back on PD exchanges four times per day with the new catheter that was placed I am hopeful that we will not need to repeat hemodialysis at present time for management of her volume status. 3. Acute on chronic anemia. The patient's hemoglobin has stabilized. Aranesp was discontinued. The PD catheter exchanges are reportedly left bloody. 4. Blood pressures are elevated. It is likely due to suboptimal dialysis plus IV fluids plus blood products. Lisinopril was being increased to 10 mg twice daily. Remainder medications are being continued as they are with improved and regular PD exchanges her blood pressure should improve as well. 5. Thrombocytopenia. She is receiving heparin free dialysis and her platelet counts are slowly improving.
[2018-09-20] MEDS: NYSTATIN 500,000 U/5 ML SUSP UDC SS SCH ×4 (07:45→21:23)
[2018-09-20] MEDS: CALCITRIOL 0.25 MCG CAP (S0169) PO SCH (07:46)
[2018-09-20] MEDS: PRENATAL VITAMINS CHEWABLE TABLET PO SCH (07:46)
[2018-09-20] MEDS: PANTOPRAZOLE 40MG TAB (PROTONIX) PO SCH ×2 (07:47→21:23)
[2018-09-20] MEDS: SUCRALFATE 1 GM TAB PO SCH ×4 (07:47→21:23)
[2018-09-20] MEDS: ISOSORBIDE MON. (IMDUR) 30 MG XR TAB PO SCH (07:47)
[2018-09-20] MEDS: LISINOPRIL 10 MG TAB PO SCH ×2 (07:48→21:23)
[2018-09-20] MEDS: METOPROLOL TART 25 MG TABLET PO SCH ×2 (07:48→21:23)
--- NOTE | 2018-09-20 11:55 | IPNPDOC ---
Text Note Date of Service The patient was seen on 09/20/18. NOTE SUBJECTIVE: Patient seen during morning rounds. She states that her abdominal pain is bothering her a bit, especially with PD flushes and cold dialysate. Otherwise patient denies chest pain, shortness breath, nausea, vomiting, fevers, chills. OBJECTIVE PHYSICAL EXAMINATION: VITAL SIGNS: Please see below. GENERAL: Pleasant 48 yo female sitting up in bed, awake alert oriented speaking in complete sentences, NAD HEENT: Moist mucous membranes, no JVD, EOM CARDIOVASCULAR: S1 S2 regular no additional heart sounds appreciated. RESPIRATORY: Clear to auscultation bilaterally, no crackles, rales or wheezing ABDOMINAL: nabsx4, minimal pain to light palpation lower b/l abdomen, no distension, no rebound ridgity or guarding, no hepatosplenomegaly or masses, PD cath was in place L lower abdomen area, dressing and surrounding skin is dry and clean, no erythema appreciated nor pus/blood exudation, same for ex. lap insertion points in abdomen, right fem graft with good humming murmur appreciated on auscultation EXTREMITIES: No clubbing cyanosis or edema NEUROLOGICAL: Spontaneously moves all 4 extremities, no focal deficits appreciated PSYCHOLOGICAL: Appropriate LABORATORY DATA, MICROBIOLOGY: Please see below. ASSESSMENT AND PLAN: This is a 48 yo female who is complaining of consistent abdominal pain during HD. PROBLEMS: 1. Chronic abdominal pain - possibly 2/2 esophagitis, possibly 2/2 dysfunctional peritoneal dialysis catheter, possibly 2/2 SBP -Subha feels much good today, but admits there is still some abdominal pain martha with dialysate fluid that is cold, she ambulates in her room with minimal abdominal discomfort. This is anticipated, we will monitor for now, she needs to work with PT. -Peritoneal fluid was positive for Staph Hominis. She has had an extensive work up to evaluate for etiology of abdominal pain. She had negative PCR GI panel, and positive stool lactoferrin which could suggest intestinal inflammation. - She has currently peritoneal fluid pending test for Mycobacterium cultures and fungal smears. - s/p Meropenem - She is s/p surgery with Dr. Bunch for PD cath revision 09.16.18. . She has also had an EGD on 09-13-18, that only showed esophagitis which could be contributing to her current symptoms. - She continues on Protonix and Carafate. - CT ab/pelvis showed Moderate bibasilar atelectasis and small right pleural effusion slightly increased from prior examination. 2. Moderate amount of ascites and pneumoperitoneum essentially unchanged and possibly related to peritoneal dialysis although bowel perforation cannot definitively be excluded. 3. Suggestions for possible enterocolitis with mild wall thickening to the bowel. However this may be secondary to chronic peritoneal fluid irritation. 2. Thrombocytopenia -Improved again to 115 today-continue to monitor - Peripheral smear showed anemia chronic disease, thrombocytopenia likely secondary to HD. CT ab/pelvis w contrast performed with above results. She is going for ex lap today to hopefully identify source of bleed., her thrombocytopenia could be secondary to this. We will continue to monitor for now. CT ab/pelvis w/o contrast showed pneumoperitoneum likely related to peritoneal dialysis catheter, perforated hollow viscus cannot be entirely excluded. Interval development of moderate to large ascites. Interval increase in right pleural effusion. Suspect volume overload. Cholelithiasis. No specific evidence of acute cholecystitis. 3.End-stage renal disease on peritoneal dialysis with malfunctioning PD catheter: -Case was discussed with Dr. Yost as well as Dr Mcdaniel 09/14/18 -S/p PD cath revision 09.16.[address] Bunch, s/p ex lap for pts PD flushes contained blood -abdominal pain improved, just bothers her sometimes with PD flushes and cold fluid -nephrology consulted, appreciate their help 4. Unresponsiveness event? 09.16.18 -this has not occurred again-resolved -likely secondary to pain medications from PD cath revision that day 09.16.18 -apparently pt had rapid assessment performed 09.16.18 for unresponsiveness, she was given Narcan and had some resolution of symptoms, was also hypotensive, she was given fluid resuscitation. Reviewed EKG from after 6 am and was unrevealing for etiology of acute unresponsiveness. - Was holding all possible sedating medications., the patient did not remember what occurred that night, she had no recollection. She is currently AAOx3. She is on telemetry and rate is in the 70's currently. -Continue to monitor for now 5. Hypokalemia: -Resolved 3.9 today 6. Chronic systolic congestive heart failure baseline ejection fraction 25-30%: -Continue metoprolol, lisinopril, HD as per nephro 7. Diabetes mellitus type 2 on long-term insulin therapy complicated by diabetic neuropathy as well as retinopathy -Hold long-acting insulin given patient's nausea and vomiting -C/w SSI 8. Uncontrolled hypertension: -Now controlled -Continue metoprolol, lisinopril and Imdur 9. Hypothyroidism: -Continue Levothyroxine 10. GI/DVT PPX: -PPI -heparin d/c in light of thrombocytopenia DISPOSITION: Pts abdominal pain is improved on examination, but still present, martha with cold dialysate instillation, she needs to continue to work with PT at this point. VS,Fishbone, I+O VS, Fishbone, I+O Laboratory Tests 09/19/18 11:58 09/19/18 18:28 09/20/18 06:00 Red Blood Count 3.70 L, Mean Corpuscular Volume 93.0, Mean Corpuscular Hemoglobin 30.8, Mean Corpuscular Hemoglobin Concent 33.1, Red Cell Distribution Width 15.3 H, Calcium Level 8.0 L Vital Signs Date Time Temp Pulse Resp B/P (MAP) Pulse Ox O2 Delivery O2 Flow Rate FiO2 09/20/18 07:48 175/85 09/20/18 07:48 74 09/20/18 06:00 98.6 18 97 09/18/18 21:12 1.0 I&O- Last 24 Hours up to 6 AM 09/20/18 06:00 Intake Total 6030 ml Output Total 6450 ml Balance -420 ml GME ATTESTATION GME ATTESTATION My faculty preceptor for this patient encounter was physically present during the encounter and was fully available. All aspects of the patient interview, examination, medical decision making process, and medical care plan development were reviewed and approved by the faculty preceptor. The faculty preceptor is aware and concurs with the plan as stated in the body of this note and will a ttest to such by his/her cosignature. ATTENDING NOTE I, Pedrito Castillo, have both independently examined this patient as well as reviewed the documentation. I have discussed in detail with the resident the findings and plan of treatment as documented by the resident. I agree with their findings and treatment plan. I will continue to follow the patient and offer further guidance to the patients care as necessary during this hospital stay. GRIFFIN MARTINS DO Sep 20, 2018 11:55 PEDRITO CASTILLO MD Sep 20, 2018 14:17
[2018-09-20 14:00] VITALS: BP 152/64
[2018-09-20] MEDS: MEROPENEM INJ 1 GM in APPROPRIATE DILUENT 1 EA IV SCH (15:08)
[2018-09-20] MEDS: GENTAMICIN SULFATE 0.1% OINT 15 GM TOP SCH (21:00)
[2018-09-20] MEDS: ONDANSETRON 4MG/2ML VIAL (J2405) IV PRN (21:24)
[2018-09-20] MEDS: ACETAMINOPHEN TAB 650MG DOSE (2X325MG) PO PRN (21:25)
[2018-09-20 22:00] VITALS: BP 158/68
[2018-09-21] MEDS: LEVOTHYROXINE 75MCG TABLET (0.075MG) PO SCH (05:28)
[2018-09-21 06:00] VITALS: BP 154/60
[2018-09-21 06:49] LABS: HEMATOCRIT 35.8 % (36.0-47.0); HEMOGLOBIN 11.4 g/dl (12.0-15.5); MEAN CORPUSCULAR HEMOGLOBIN 29.8 pg (27.0-33.0); MEAN CORPUSCULAR HGB CONC 31.8 g/dl (32.0-36.5); MEAN CORPUSCULAR VOLUME 93.7 fl (80.0-96.0); PLATELET COUNT, AUTOMATED 118 10^3/uL (150-450); RED BLOOD COUNT 3.82 10^6/uL (4.00-5.40); WHITE BLOOD COUNT 5.9 10^3/uL (4.0-10.0)
[2018-09-21 07:20] LABS: CALCIUM LEVEL 8.4 MG/DL (8.5-10.1); GLOMERULAR FILTRATION RATE 5.7 (>58); POTASSIUM SERUM 3.5 MEQ/L (3.5-5.1)
[2018-09-21] MEDS: PRENATAL VITAMINS CHEWABLE TABLET PO SCH (08:15)
[2018-09-21] MEDS: PANTOPRAZOLE 40MG TAB (PROTONIX) PO SCH ×2 (08:15→22:13)
[2018-09-21] MEDS: CALCITRIOL 0.25 MCG CAP (S0169) PO SCH (08:15)
[2018-09-21] MEDS: METOPROLOL TART 25 MG TABLET PO SCH ×2 (08:15→22:12)
[2018-09-21] MEDS: LISINOPRIL 10 MG TAB PO SCH ×2 (08:16→22:13)
[2018-09-21] MEDS: HumaLOG INSULIN (NovoLOG) PER UNIT SC SCH ×4 (08:16→22:13)
[2018-09-21] MEDS: ISOSORBIDE MON. (IMDUR) 30 MG XR TAB PO SCH (08:16)
[2018-09-21] MEDS: SUCRALFATE 1 GM TAB PO SCH ×4 (08:16→22:12)
[2018-09-21] MEDS ORDERED: DARBEPOETIN 100 MCG/0.5 ML *NON-DIALYSIS* SYRINGE (J0881) SQ SCH (09:00)
[2018-09-21] MEDS: NYSTATIN 500,000 U/5 ML SUSP UDC SS SCH ×4 (09:47→22:13)
[2018-09-21] MEDS ORDERED: POTASSIUM CHLORIDE 10 MEQ SR TABLET PO ONE (10:00)
--- NOTE | 2018-09-21 11:16 | IPN ---
DATE OF SERVICE: 09/20/2018 SUBJECTIVE: Subha is seen and examined this morning at the bedside. She reports she actually feels much better today. Reports that she is only having incisional pain in the belly. Otherwise, the prior abdominal pain has resolved. She reports improved appetite and is eating lunch with pleasure. She reports her peritoneal dialysis (PD) exchanges are much less blood-tinged, though I did not have a chance to examine it today. She denies any shortness of breath or chest pain. Her hemoglobin remains stable. Vital signs: Temperature 97.0, pulse 71, respiratory rate 20, blood pressure 152/64, saturating 99% on room air. Intake yesterday and output yesterday show net negative 300. Weight in the bed scale today is not recorded. General: The patient is seen sitting at the edge of the bed, legs dangling, eating lunch. Awake, alert, oriented, smiling, conversational, no distress. Extraocular muscles are intact. Tongue is moist. Neck is supple. Jugular veins are not elevated. Cardiac: S1, S2, regular rate and rhythm. Lungs are clear to auscultation bilaterally. No crackle, rale, or wheeze. Abdomen is soft and nontender. There is PD fluid in place. The PD catheter exit site was not examined today. The graft in the right thigh is patent. There is no edema in the peripheries. Skin: Normal turgor and temperature. Psychiatric: Appropriate mood and affect. LABORATORIES: White count 6.6, hemoglobin 11.4, platelet 115. Sodium 138, potassium 3.9. INPATIENT MEDICATIONS: Reviewed by me, and there are no changes from prior. PROBLEMS: 1. End-stage renal disease, on peritoneal dialysis catheter. Recently had PD catheter malfunction. Status post PD catheter replacement. The patient's peritoneal fluid exchanges are reportedly clearing up. Still red tinged but far less so than prior. Her hemoglobin has also stabilized. She has not required any further transfusions in the past 2 days. Symptomatically, she is also much improved. She reports resolution of her abdominal pain and improved appetite. She continues on every 6 hourly PD exchanges with a volume of 1500 mL with each exchange on 1.5% dianeal. She is tolerating the PD prescription well. She received one session of hemodialysis on Sunday, but there is no need at present for repeat hemodialysis treatment. 2. Chronic systolic congestive heart failure, ejection fraction 25% to 30%. There is likely some mild hypervolemia given her recent inadequate dialysis over the past week due to access issues and also concomitant blood products and intermittent intravenous (IV) fluid. Her volume status will slowly continue to improve as we continue with regular peritoneal dialysis exchanges. 3. Acute on chronic anemia. It was of related to surgery. It has stabilized. PD exchanges are less blood-tinged. 4. Hypertension. Blood pressures are improved from prior. Continue current medications and continue dialysis exchanges. 5. Thrombocytopenia. It is improving, and she is not receiving any heparin with her exchanges. [facility]
[2018-09-21 13:04] LABS: SPEC. GRAVITY BODY FLUIDS 1.006 (NOT ESTABLISHED)
--- NOTE | 2018-09-21 13:04 | IPNPDOC ---
Text Note Date of Service The patient was seen on 09/21/18. NOTE SUBJECTIVE: Patient seen during morning rounds. She states that her abdominal pain is improved but still present, in her lower abdomen mostly. Otherwise patient denies chest pain, shortness breath, nausea, vomiting, fevers, chills. ROS: 12 point ROS reviewed with patient and negative except for above positive findings OBJECTIVE PHYSICAL EXAMINATION: VITAL SIGNS: Please see below. GENERAL: Pleasant 48 yo female sitting up in bed, awake alert oriented speaking in complete sentences, NAD HEENT: Moist mucous membranes, no JVD, EOM CARDIOVASCULAR: S1 S2 regular no additional heart sounds appreciated. RESPIRATORY: Clear to auscultation bilaterally, no crackles, rales or wheezing ABDOMINAL: nabsx4, continued minimal pain to light palpation lower b/l abdomen, no distension, no rebound ridgity or guarding, no hepatosplenomegaly or masses, PD cath was in place L lower abdomen area, dressing and surrounding skin is dry and clean as is insertion site of catheter, no erythema appreciated nor pus/blood exudation EXTREMITIES: No clubbing cyanosis or edema NEUROLOGICAL: Spontaneously moves all 4 extremities, no focal deficits appreciated PSYCHOLOGICAL: Appropriate LABORATORY DATA, MICROBIOLOGY: Please see below. ASSESSMENT AND PLAN: This is a 48 yo female who is complaining of consistent abdominal pain during HD. PROBLEMS: 1. Chronic abdominal pain - possibly 2/2 esophagitis, possibly 2/2 dysfunctional peritoneal dialysis catheter, possibly 2/2 SBP -Subha feels good today, she is watching television and states she is comfortable, her lower abdomen bothers her only sometimes, she says she is working with PT. -Peritoneal fluid was positive for Staph Hominis. She has had an extensive work up to evaluate for etiology of abdominal pain. She had negative PCR GI panel, and positive stool lactoferrin which could suggest intestinal inflammation. - She has currently peritoneal fluid pending test for Mycobacterium cultures and fungal smears. - c/w Meropenem for now, she is day #10, we have sent another fluid analysis, if this comes back reassuring then we will d/c abx - She is s/p surgery with Dr. Bunch for PD cath revision 09.16.18. . She has also had an EGD on 09-13-18, that only showed esophagitis which could be contributing to her current symptoms. - She continues on Protonix and Carafate. - CT ab/pelvis showed Moderate bibasilar atelectasis and small right pleural effusion slightly increased from prior examination. 2. Moderate amount of ascites and pneumoperitoneum essentially unchanged and possibly related to peritoneal dialysis although bowel perforation cannot definitively be excluded. 3. Suggestions for possible enterocolitis with mild wall thickening to the bowel. However this may be secondary to chronic peritoneal fluid irritation. 2. Thrombocytopenia -Improved again to 118 today-continue to monitor - Peripheral smear showed anemia chronic disease, thrombocytopenia likely secondary to HD. CT ab/pelvis w contrast performed with above results. She is going for ex lap today to hopefully identify source of bleed., her thrombo cytopenia could be secondary to this. We will continue to monitor for now. CT ab/pelvis w/o contrast showed pneumoperitoneum likely related to peritoneal dialysis catheter, perforated hollow viscus cannot be entirely excluded. Interval development of moderate to large ascites. Interval increase in right pleural effusion. Suspect volume overload. Cholelithiasis. No specific evidence of acute cholecystitis. 3.End-stage renal disease on peritoneal dialysis with malfunctioning PD catheter: -Case was discussed with Dr. Yost as well as Dr Mcdaniel 09/14/18 -S/p PD cath revision 09.16.[address] Bunhc, s/p ex lap for pts PD flushes contained blood -abdominal pain improved, just bothers her sometimes with PD flushes and cold fluid -nephrology consulted, appreciate their help 4. Unresponsiveness event? 09.16.18 -this has not occurred again-resolved -likely secondary to pain medications from PD cath revision that day 09.16.18 -apparently pt had rapid assessment performed 09.16.18 for unresponsiveness, she was given Narcan and had some resolution of symptoms, was also hypotensive, she was given fluid resuscitation. Reviewed EKG from after 6 am and was unrevealing for etiology of acute unresponsiveness. - Was holding all possible sedating medications., the patient did not remember what occurred that night, she had no recollection. She is currently AAOx3. She is on telemetry and rate is in the 70's currently. -Continue to monitor for now 5. Hypokalemia: -Resolved 3.5 today 6. Chronic systolic congestive heart failure baseline ejection fraction 25-30%: -Continue metoprolol, lisinopril, HD as per nephro 7. Diabetes mellitus type 2 on long-term insulin therapy complicated by diabetic neuropathy as well as retinopathy -Hold long-acting insulin given patient's nausea and vomiting -C/w SSI 8. Uncontrolled hypertension: -Now controlled -Continue metoprolol, lisinopril and Imdur 9. Hypothyroidism: -Continue Levothyroxine 10. GI/DVT PPX: -PPI -heparin d/c in light of thrombocytopenia DISPOSITION: Pts abdominal pain present but appears stable on examination, she is working with PT., we have sent repeat fluid studies today if they come back without concern for infection then we will d/c meropenem all together. VS,Fishbone, I+O VS, Fishbone, I+O Laboratory Tests 09/21/18 06:20 Red Blood Count 3.82 L, Mean Corpuscular Volume 93.7, Mean Corpuscular Hemoglobin 29.8, Mean Corpuscular Hemoglobin Concent 31.8 L, Red Cell Distribution Width 15.1 H, Calcium Level 8.4 L Vital Signs Date Time Temp Pulse Resp B/P (MAP) Pulse Ox O2 Delivery O2 Flow Rate FiO2 09/21/18 08:15 81 142/69 09/21/18 06:00 98.0 18 97 09/18/18 21:12 1.0 I&O- Last 24 Hours up to 6 AM 09/21/18 06:00 Intake Total 6560 ml Output Total 5700 ml Balance 860 ml GME ATTESTATION GME ATTESTATION My faculty preceptor for this patient encounter was physically present during the encounter and was fully available. All aspects of the patient interview, examination, medical decision making process, and medical care plan development were reviewed and approved by the faculty preceptor. The faculty preceptor is aware and concurs with the plan as stated in the body of this note and will attest to such by his/her cosignature. ATTENDING NOTE I, Pedrito Castillo, have both independently examined this patient as well as reviewed the documentation. I have discussed in detail with the resident the findings and plan of treatment as documented by the resident. I agree with their findings and treatment plan. I will continue to follow the patient and offer further guidance to the patients care as necessary during this hospital stay. GRIFFIN MARTINS DO Sep 21, 2018 13:04 PEDRITO CASTILLO MD Sep 21, 2018 14:52
[2018-09-21 13:22] LABS: SOURCE, BODY FLUID ALBUMIN PERITONEAL; SOURCE, BODY FLUID GLUCOSE PERITONEAL; SOURCE, BODY FLUID TOT PROTEIN PERITONEAL; TOTAL PROTEIN, BODY FLUID 0.2 G/DL (NOT ESTABLISHED)
[2018-09-21 13:38] LABS: PERITONEAL FL COLOR PINK (COLORLESS); SOURCE, BODY FLUID PERITONEAL
[2018-09-21 13:39] LABS: APPEARANCE, BODY FLUID CLOUDY (CLEAR)
[2018-09-21 14:00] VITALS: BP 167/79
[2018-09-21] MEDS: MEROPENEM INJ 1 GM in APPROPRIATE DILUENT 1 EA IV SCH (15:48)
--- NOTE | 2018-09-21 16:54 | IPN ---
DATE: 09/21/2018 Ms. Trivedi is seen this morning on her bedside. She had her peritoneal dialysis catheter reinserted due to recurrent abdominal pain with peritoneal dialysis exchanges. She developed robert blood in her peritoneal fluid following the procedure which is now improving. She did require transfusions. She tells me now her peritoneal fluid is just light cranberry-colored. She denies any abdominal pain, nausea or vomiting. She is tolerating her peritoneal dialysis with decreased volume and oral intake without any difficulty. PHYSICAL EXAMINATION: Temperature 97.4 degrees Fahrenheit, heart rate 74 per minute and respiratory rate 20 per minute. Blood pressure 167/79 mmHg and oxygen saturation 97% on room air. Head is atraumatic. Neck is supple and without jugular venous distention (JVD) or thyroid enlargement. Heart sounds are regular. Lungs are clear to auscultation. Abdomen is soft and bowel sounds are present. Surgical incisions are all clean and dry. There is minimal drainage at the peritoneal catheter exit site. Neurologically, she is awake, alert and oriented times three. Extremities have no cyanosis or clubbing. LABORATORY DATA: Today's laboratories show sodium level 140, potassium 3.5, CO2 28, BUN 28 and creatinine 8.0. Glucose 163 and calcium 8.4. WBC count is 5.9, hemoglobin 11.4 and hematocrit 35.8. Platelets 118. PROBLEMS: 1. End-stage renal disease. The patient remains on peritoneal dialysis with decreased volume and frequency. She just had a new peritoneal catheter placed. At present, her dialysis is working reasonably well and she does not have anymore pain. We will continue with current prescription while she is here in the hospital and will go back to her cycler at night when she is home. 2. Bleeding in peritoneal fluid. She does have history of robert blood in the peritoneal fluid and drop in her hematocrit requiring transfusions. Now, she seems to be stable without any change in her hematocrit for the last couple of days. I feel that she may have some old blood which is draining. Her peritoneal dialysis (PD) fluid cell count has just come back and showed only 25 red blood cells. We will continue to watch her. 3. Hypertension. Blood pressure is reasonably well-controlled and should continue with current antihypertensive medications. DISPOSITION: I feel that the patient can probably be ready for discharge within the next 24 hours. Now that I have seen her peritoneal fluid with only 25 red blood cells and stable hematocrit, I think she can continue to do well at home.
[2018-09-21 22:00] VITALS: BP 130/75
[2018-09-21] MEDS: GENTAMICIN SULFATE 0.1% OINT 15 GM TOP SCH (22:14)
[2018-09-21] MEDS: ACETAMINOPHEN TAB 650MG DOSE (2X325MG) PO PRN (22:14)
[2018-09-22 06:00] VITALS: BP 130/80
[2018-09-22] MEDS: LEVOTHYROXINE 75MCG TABLET (0.075MG) PO SCH (06:05)
[2018-09-22] MEDS: HumaLOG INSULIN (NovoLOG) PER UNIT SC SCH ×4 (07:30→21:00)
[2018-09-22 07:44] LABS: HEMATOCRIT 36.9 % (36.0-47.0); HEMOGLOBIN 11.8 g/dl (12.0-15.5); MEAN CORPUSCULAR HEMOGLOBIN 30.3 pg (27.0-33.0); MEAN CORPUSCULAR VOLUME 94.9 fl (80.0-96.0); PLATELET COUNT, AUTOMATED 154 10^3/uL (150-450); RED BLOOD COUNT 3.89 10^6/uL (4.00-5.40); WHITE BLOOD COUNT 7.5 10^3/uL (4.0-10.0)
[2018-09-22 08:13] LABS: CALCIUM LEVEL 8.6 MG/DL (8.5-10.1); CREATININE FOR GFR 8.27 MG/DL (0.55-1.30); GLOMERULAR FILTRATION RATE 5.5 (>58); POTASSIUM SERUM 3.7 MEQ/L (3.5-5.1)
[2018-09-22] MEDS: CALCITRIOL 0.25 MCG CAP (S0169) PO SCH (09:09)
[2018-09-22] MEDS: PRENATAL VITAMINS CHEWABLE TABLET PO SCH (09:09)
[2018-09-22] MEDS: NYSTATIN 500,000 U/5 ML SUSP UDC SS SCH ×4 (09:09→21:36)
[2018-09-22] MEDS: SUCRALFATE 1 GM TAB PO SCH ×4 (09:10→21:35)
[2018-09-22] MEDS: PANTOPRAZOLE 40MG TAB (PROTONIX) PO SCH (09:10)
[2018-09-22] MEDS: ISOSORBIDE MON. (IMDUR) 30 MG XR TAB PO SCH (09:10)
[2018-09-22] MEDS: METOPROLOL TART 25 MG TABLET PO SCH ×2 (09:11→21:36)
[2018-09-22] MEDS: LISINOPRIL 10 MG TAB PO SCH ×2 (09:11→21:00)
--- NOTE | 2018-09-22 13:14 | IPNPDOC ---
Text Note Date of Service The patient was seen on 09/22/18. NOTE Subjective: Patient was seen and examined at the bedside. Patient reports that she does not experience any abdominal pain. Denies nausea, vomiting, constipation, diarrhea. Patient does not think she denies chest pain, shortness breath. She's continued with peritoneal dialysis and still notes that the output has been red tinged. Objective: Vitals (See below) General: Lying in bed, no acute distress, comfortable, AAOx3 HEENT: NC, AT CVS: RRR, +S1S2 Lungs: Fair air entry b/l, -w/r/r Abdomen: Soft, ND, NT, +PD catheter Extremities: No evidence of lower extremity edema, - Calf tenderness Imaging: - CT abdomen / pelvis 09/11: 1. Small to moderate amount of pneumoperitoneum likely related to peritoneal dialysis although correlation is required to exclude perforated viscus. The small large bowel is grossly unremarkable in appearance. 2. Cholelithiasis without evidence for acute cholecystitis. 3. Mild atrophic changes to the kidneys without hydronephrosis. 4. No further acute abdominopelvic pathology appreciated. - CT abdomen / pelvis 09/13: Remonstration of pneumoperitoneum likely related to peritoneal dialysis catheter. Perforated hollow viscus cannot be entirely excluded. Clinical correlation is advised. Interval development of moderate to large ascites. Interval increase in right pleural effusion. Suspect volume overload. Cholelithiasis. No specific evidence of acute cholecystitis. - CT Abdomen 09/17: 1. Moderate bibasilar atelectasis and small right pleural effusion slightly increased from prior examination. 2. Moderate amount of ascites and pneumoperitoneum essentially unchanged and possibly related to peritoneal dialysis although bowel perforation cannot definitively be excluded. 3. Suggestions for possible enterocolitis with mild wall thickening to the bowel. However this may be secondary to chronic peritoneal fluid irritation. - CXR 09/18: Mild bibasilar atelectatic change. - CT abdomen / pelvis 09/19: 1. There is a moderate amount of free intraperitoneal fluid present. 2. Thickened wall of the distal esophagus. Finding may be related to reflux esophagitis however an esophageal neoplasm should be excluded clinically. 3. Free intraperitoneal air possibly related to peritoneal dialysis. 4. There are gallstones present. No CT evidence of cholecystitis demonstrated. 5. Anasarca. 6. There has been a hysterectomy. 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 / Rare organisms suggestive of rey are noted - c/w PPI (Will change to Omeprazole) and Carafate ESRD on PD - s/p Dysfunctional peritoneal dialysis catheter - was replaced on 09/16 - s/p Temporary HD - Cr continues to trend upward - Fluid output still reveals red tinge; will discuss with Vascular surgery / Nephrology about possible intervention - Nephrology and Vascular surgery on consultation; appreciate their input Thrombocytopenia - Platelet count has fluctuated throughout hospital course; has improved today Normocytic anemia - likely 2/2 AOCD - s/p 3 units PRBC - Hg remains stable HTN - BP appears better controlled - c/w Metoprolol, Lisinopril, Isosorbide Mononitrate IDDM2 with Neuropathy and Retinopathy - Currently off Levemir - c/w ISS Hypothyroidism - c/w Levothyroxine s/p Hypokalemia DVT prophylaxis - c/w SCOT/Sequentials VS,Fishbone, I+O VS, Fishbone, I+O Laboratory Tests 09/22/18 07:26 Red Blood Count 3.89 L, Mean Corpuscular Volume 94.9, Mean Corpuscular Hemoglobin 30.3, Mean Corpuscular Hemoglobin Concent 32.0, Red Cell Distribution Width 15.2 H, Calcium Level 8.6 Vital Signs Date Time Temp Pulse Resp B/P (MAP) Pulse Ox O2 Delivery O2 Flow Rate FiO2 09/22/18 09:11 80 09/22/18 09:10 148/72 09/22/18 06:00 97.7 15 97 09/18/18 21:12 1.0 I&O- Last 24 Hours up to 6 AM 09/22/18 06:00 Intake Total 5290 ml Output Total 4400 ml Balance 890 ml SAURAV ALBARADO MD Sep 22, 2018 13:14
[2018-09-22] MEDS: MEROPENEM INJ 1 GM in APPROPRIATE DILUENT 1 EA IV SCH (15:00)
--- NOTE | 2018-09-22 17:00 | IPN ---
DATE: 09/22/2018 Ms. Trivedi is seen this afternoon on her bedside. She is feeling about the same. She continues to have pinkish peritoneal dialysis fluid. She denies any pain in her abdomen at the time of installation; however, does get pain when she is towards the end of drainage. She denies any nausea, vomiting, dyspnea or chest pain. PHYSICAL EXAMINATION: Temperature 97.7 degrees Fahrenheit, heart rate 76 per minute and respiratory rate 18 per minute. Blood pressure 148/72 mmHg and oxygen saturation 97% on room air. Head is atraumatic. There is no oral thrush or ulcers. Neck is supple and without jugular venous distention (JVD) or thyroid enlargement. Heart sounds are regular. Lungs sounds clear to auscultation. Abdomen soft and nontender and peritoneal dialysis catheter is intact. Surgical sites are all clean and dry. Extremities have no cyanosis or clubbing. Neurologically, she is at her baseline mentation without any focal deficit. Today's labs show a WBC count of 7.5, hemoglobin 11.8, and hematocrit 36.9. Platelets 154. Sodium 140, potassium 3.7, CO2 28, BUN 25 and creatinine 8.27. Glucose 181 and calcium 8.6. PROBLEMS: 1. End-stage renal disease. Patient is currently on peritoneal dialysis with a decreased volume and frequency due to fresh, new peritoneal dialysis catheter placement. Her electrolytes are reasonable and she is receiving adequate dialysis considering her situation. Once her catheter gets fixed, then we will increase the volume and frequency of her dialysis exchanges. 2. Blood in the peritoneal fluid. She continues to have bleeding and required transfusions previously; however, now her hematocrit remains stable. However, there is persistent blood in the peritoneal fluid. I would like to have Dr. Bunch look into her peritoneal cavity with possible laparoscope and see where the blood is coming from. She is concerned about it and does not want to go home with it. 3. Hypertension. Blood pressure is very well controlled on current antihypertensive medications. No changes are being made today.
[2018-09-22] MEDS ORDERED: FAMOTIDINE 20 MG TAB PO SCH (21:00)
[2018-09-22] MEDS: OMEPRAZOLE 20 MG CAP PO SCH (21:36)
[2018-09-22] MEDS: LINEZOLID 600MG TABLET (ZYVOX) PO SCH (21:36)
[2018-09-22] MEDS: GENTAMICIN SULFATE 0.1% OINT 15 GM TOP SCH (21:37)
[2018-09-22 22:00] VITALS: BP 130/80
[2018-09-23] MEDS: LEVOTHYROXINE 75MCG TABLET (0.075MG) PO SCH (05:56)
[2018-09-23 06:00] VITALS: BP 125/70
[2018-09-23 06:05] LABS: HEMATOCRIT 31.2 % (36.0-47.0); HEMOGLOBIN 10.1 g/dl (12.0-15.5); MEAN CORPUSCULAR HEMOGLOBIN 29.7 pg (27.0-33.0); MEAN CORPUSCULAR HGB CONC 32.4 g/dl (32.0-36.5); MEAN CORPUSCULAR VOLUME 91.8 fl (80.0-96.0); PLATELET COUNT, AUTOMATED 133 10^3/uL (150-450); WHITE BLOOD COUNT 7.2 10^3/uL (4.0-10.0)
[2018-09-23] MEDS: ACETAMINOPHEN TAB 650MG DOSE (2X325MG) PO PRN (06:28)
[2018-09-23 06:45] LABS: CALCIUM LEVEL 8.6 MG/DL (8.5-10.1); CREATININE FOR GFR 8.69 MG/DL (0.55-1.30); GLOMERULAR FILTRATION RATE 5.2 (>58); POTASSIUM SERUM 3.7 MEQ/L (3.5-5.1)
[2018-09-23] MEDS: ISOSORBIDE MON. (IMDUR) 30 MG XR TAB PO SCH (07:40)
[2018-09-23] MEDS: LISINOPRIL 10 MG TAB PO SCH ×2 (09:00→21:11)
[2018-09-23] MEDS: OMEPRAZOLE 20 MG CAP PO SCH ×2 (09:15→21:10)
[2018-09-23] MEDS: SUCRALFATE 1 GM TAB PO SCH ×4 (09:15→21:12)
[2018-09-23] MEDS: CALCITRIOL 0.25 MCG CAP (S0169) PO SCH (09:15)
[2018-09-23] MEDS: METOPROLOL TART 25 MG TABLET PO SCH ×2 (09:16→21:11)
[2018-09-23] MEDS: HumaLOG INSULIN (NovoLOG) PER UNIT SC SCH ×4 (09:17→20:49)
[2018-09-23] MEDS: PRENATAL VITAMINS CHEWABLE TABLET PO SCH (09:50)
[2018-09-23] MEDS: LINEZOLID 600MG TABLET (ZYVOX) PO SCH ×2 (09:50→22:11)
[2018-09-23] MEDS: NYSTATIN 500,000 U/5 ML SUSP UDC SS SCH ×4 (09:50→22:10)
[2018-09-23] MEDS ORDERED: LINE1TAB PO (10:40)
--- NOTE | 2018-09-23 11:12 | IPNPDOC ---
Text Note Date of Service The patient was seen on 09/23/18. NOTE Subjective: Patient was seen and examined at the bedside rounds this morning. Patient reports that she has been experiencing some abdominal discomfort recently. She also says that her PD cath exchanges are unfortunately still bloody, she reports extreme abdominal pain about 10 minutes into her PD exchanges, and some rectal pain as well. Denies nausea, vomiting, constipation, diarrhea. Patient denies chest pain, shortness breath. ROS: 12 point ROS negative except for pertinent Objective: Vitals (See below) General: sitting up in bed doing a crossword puzzle, NAD, comfortable, AAOx3 HEENT: nares patent b/l, moist mucus membranes, no JVP CVS: RRR, normal s1 and s2, no murmurs, rubs or gallops Lungs: CTA b/l, no rales, rhonchi or wheezing Abdomen: tender b/l lower abdomen, no distension, nabsx4, no hepatosplenomegaly or masses appreciated,no rebound ridgity or guarding-examination of toilet water where PD cath exchange fluid is placed showed red tinged fluid in toilet Extremities: No evidence of lower extremity edema, cyanosis or mottling Imaging: - CT abdomen / pelvis 09/11: 1. Small to moderate amount of pneumoperitoneum likely related to peritoneal dialysis although correlation is required to exclude perforated viscus. The small large bowel is grossly unremarkable in appearance. 2. Cholelithiasis without evidence for acute cholecystitis. 3. Mild atrophic changes to the kidneys without hydronephrosis. 4. No further acute abdominopelvic pathology appreciated. - CT abdomen / pelvis 09/13: Remonstration of pneumoperitoneum likely related to peritoneal dialysis catheter. Perforated hollow viscus cannot be entirely excluded. Clinical correlation is advised. Interval development of moderate to large ascites. Interval increase in right pleural effusion. Suspect volume overload. Cholelithiasis. No specific evidence of acute cholecystitis. - CT Abdomen 09/17: 1. Moderate bibasilar atelectasis and small right pleural effusion slightly increased from prior examination. 2. Moderate amount of ascites and pneumoperitoneum essentially unchanged and possibly related to peritoneal dialysis although bowel perforation cannot definitively be excluded. 3. Suggestions for possible enterocolitis with mild wall thickening to the bowel. However this may be secondary to chronic peritoneal fluid irritation. - CXR 09/18: Mild bibasilar atelectatic change. - CT abdomen / pelvis 09/19: 1. There is a moderate amount of free intraperitoneal fluid present. 2. Thickened wall of the distal esophagus. Finding may be related to reflux esophagitis however an esophageal neoplasm should be excluded clinically. 3. Free intraperitoneal air possibly related to peritoneal dialysis. 4. There are gallstones present. No CT evidence of cholecystitis demonstrated. 5. Anasarca. 6. There has been a hysterectomy. Assessment and plan: 1.Chronic abdominal pain - possibly 2/2 peritonitis, possibly 2/2 dysfunctional peritoneal dialysis catheter, possibly 2/2 esophagitis - On physical examination, she unfortunately does still have lower abdominal pain, she states this is excruciating about 10 minutes into PD exchanges - No leukocytosis - Fluid analysis consistent with possible infection; although counts are not significantly high-c/w Zyvox - Peritoneal culture 09/13: Staph Hominis; Repeat cultures pending - Imaging as above - s/p Meropenem (completed 10 day course), c/w Zyvox 2. 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 ESRD on PD - s/p Dysfunctional peritoneal dialysis catheter - was replaced on 09/16 - s/p Temporary HD via right thigh graft - Cr continues to trend upward 8.69 today - Fluid output still reveals red tinge; discussed with Vascular surgery -CBC at noon today to evaluate for blood loss - Nephrology and Vascular surgery on consultation; appreciate their input - Possible intervention based on vascular surgery recommendations 4. Thrombocytopenia - Platelet count has fluctuated throughout hospital course; a bit lower today at 133 5. Normocytic anemia - likely 2/2 AOCD - s/p 3 units PRBC - Hg has decreased a bit today, repeat CBC at noon, she is still having blood tinged PD cath exchanges, vascular sx aware 6. HTN - BP appears better controlled-125/70 - c/w Metoprolol, Lisinopril, Isosorbide Mononitrate 7. IDDM2 with Neuropathy and Retinopathy - Currently off Levemir - c/w ISS 8. Hypothyroidism - c/w Levothyroxine 9. s/p Hypokalemia -K is 3.7 today DVT prophylaxis - c/w SCOT/Sequentials VS,Fishbone, I+O VS, Fishbone, I+O Laboratory Tests 09/23/18 05:39 Red Blood Count 3.40 L, Mean Corpuscular Volume 91.8, Mean Corpuscular Hem oglobin 29.7, Mean Corpuscular Hemoglobin Concent 32.4, Red Cell Distribution Width 15.2 H, Calcium Level 8.6 Vital Signs Date Time Temp Pulse Resp B/P (MAP) Pulse Ox O2 Delivery O2 Flow Rate FiO2 09/23/18 09:16 78 125/70 09/23/18 06:00 97.2 16 97 09/18/18 21:12 1.0 I&O- Last 24 Hours up to 6 AM 09/23/18 06:00 Intake Total 6670 ml Output Total 5950 ml Balance 720 ml GME ATTESTATION GME ATTESTATION My faculty preceptor for this patient encounter was physically present during the encounter and was fully available. All aspects of the patient interview, examination, medical decision making process, and medical care plan development were reviewed and approved by the faculty preceptor. The faculty preceptor is aware and concurs with the plan as stated in the body of this note and will attest to such by his/her cosignature. ATTENDING NOTE I, Pedrito Albarado, have both independently examined this patient as well as reviewed the documentation. I have discussed in detail with the resident the findings and plan of treatment as documented by the resident. I agree with their findings and treatment plan. I will continue to follow the patient and offer further guidance to the patients care as necessary during this hospital stay. GRIFFIN MARTINS DO Sep 23, 2018 11:09 PEDRITO ALBARADO MD Sep 23, 2018 14:10
--- NOTE | 2018-09-23 11:27 | IPN ---
DATE OF SERVICE: 09/23/2018 Ms. Trivedi is seen this morning on her bedside. She is sitting at the edge of bed. She denies any dyspnea or chest pain. She does have complaint of severe pain in her rectum when she has the drainage of peritoneal dialysis. Her peritoneal dialysis (PD) fluid remains pinkish. She denies any dyspnea, chest pain, fever or chills. On physical examination, temperature 97.2 degrees Fahrenheit, heart rate 78 per minute and respiratory rate 16 per minute. Blood pressure 125/70 mmHg and oxygen saturation 97% on room air. Head is atraumatic. Neck is supple and without jugular venous distention (JVD) or thyroid enlargement. There is no oral thrush or ulcers. Heart sounds are regular and lungs clear to auscultation. Abdomen: Soft and nontender. Peritoneal dialysis catheter is intact. Extremities have no cyanosis or clubbing. Neurologically, she is at her baseline mentation and without a focal deficit. Today's labs show WBC count 7.2, hemoglobin 10.1 and hematocrit 31.2. Sodium 140, potassium 3.7, CO2 28, BUN 37 and creatinine 8.69. Glucose 159 and calcium 8.6. PROBLEMS: 1. End-stage renal disease. The patient is currently on peritoneal dialysis with decreased frequency and decreased volume due to new PD catheter placed. She is tolerating her dialysis treatment well so far. Her creatinine is gradually increasing due to decreased amount of dialysis. We may have to either increase the frequency or consider to supplement with one hemodialysis. It is likely that she will need to be switched to temporary hemodialysis in case of laparotomy. 2. Bleeding in the peritoneal cavity. She continues to have pinkish peritoneal fluid with most likely active bleeding. She did drop her hemoglobin and hematocrit today. I am concerned about it and I would strongly recommend surgical evaluation for possible exploratory laparotomy. In that case, she will probably be switched to hemodialysis for a couple of weeks. 3. Acute blood loss anemia. She did have significant drop in her hematocrit initially and required transfusion. She was then stable for a few days and now she has dropped her hematocrit once again. We will continue to watch her closely. There is no emergent indication for transfusion at this point. 4. Hypertension. Blood pressure is reasonably well-controlled on current medications. No changes are being made today. 5. Abdominal pain. She does complain of pain in her rectum area at the end of drainage of peritoneal fluid. Probably this is related to position of the peritoneal catheter. I would suggest to Dr. Bunch to reposition her catheter at the time of exploration. 6. Peritonitis. She is afebrile and remains on antibiotic.
[2018-09-23 12:14] LABS: HEMATOCRIT 36.4 % (36.0-47.0); HEMOGLOBIN 11.6 g/dl (12.0-15.5)
[2018-09-23 14:00] VITALS: BP 135/63
--- NOTE | 2018-09-23 14:30 | IPNPDOC ---
Date Seen The patient was seen on 09/23/18. Progress Note Vascular surgery Dr Bunch. HPI: Pt is a 48yo F with End-stage renal disease, previously on peritoneal dialysis however, has had recurrent malfunctioning issues of the PD catheter and has not had any adequate dialysis treatments for the past few days. Peritonitis workup was negative with unremarkable peritoneal cell count and negative culture. S/P PD catheter removal and re insertion 09/16/18. This AM, the pt reports she is having pain with PD cath drainage and fluid is still light red. Denies any fevers, chills, weakness, fatigue, Headache, Chest Pain, Shortness of breath, cough, palpitations, abdominal pain, N/V/D or changes in bowel or bladder habits. PMH End-stage renal disease on peritoneal dialysis, diabetes mellitus type 2, hypertension, hyperlipidemia, systolic congestive heart failure with ejection fraction 25-30% at baseline, pericardial effusion status post pericardiocentesis in 2016, peripheral vascular disease, chronic anemia, peripheral neuropathy, hypothyroidism, diabetic neuropathy and retinopathy Surgical History Cardiac catheterization in March 2016 without stent placement, hysterectomy, right foot biopsy, right chest tube placement in 2016, pericardial centesis with tube pericardiostomy, section, tubal ligation, left upper extremity AV fistula creation leading to steal syndrome following which it was ligated with placement of right lower extremity graft, kidney and liver biopsies PE: GEN: 48yoF, appears stated age. HEENT: Normocephalic, atraumatic. Sclera are nonicteric. Conjunctiva without injection. Moist mucous membranes. ABD: Round, soft, non distended. PD cath in place. Dressings clean and dry. PD cath currently draining light red fluid. EXT: No lower extremity edema appreciated. SKIN: [place], dry, warm. No rashes. NEURO: No focal deficits appreciated. A&P: 1. H/O recurrent nonfunctioning PD catheter. S/P PD catheter removal and re insertion 09/16/18. Blood reported in PD cath drainage. Dr Bunch aware. Afebrile. WBC 6.4 Hgb 11.6. S/P IV Meropenem. PD fluid culture 09/21/18 pending. cell count pending. Pt is reviewed and discussed with Dr Bunch. Continue to monitor. 2. Anemia. S/P 3 u PRBC. Aranesp as per nephrlogy. Hgb 11.6 3. ESRD. Dialysis as per Nephrology. VS, I&O, 24H, Fishbone Vital Signs/I&O Vital Signs Date Time Temp Pulse Resp B/P (MAP) Pulse Ox O2 Delivery O2 Flow Rate FiO2 09/23/18 09:16 78 125/70 09/23/18 06:00 97.2 16 97 09/18/18 21:12 1.0 I&O- Last 24 Hours up to 6 AM 09/23/18 06:00 Intake Total 6670 ml Output Total 5950 ml Balance 720 ml Laboratory Data 24H LABS Laboratory Tests 2 09/22/18 16:41: Bedside Glucose (Misc Panel) 158H 09/22/18 21:04: Bedside Glucose (Misc Panel) 170H 09/23/18 05:39: Nucleated Red Blood Cells % (auto) 0.0, Anion Gap 7L, Glomerular Filtration Rate 5.2L, Blood Urea Nitrogen 37H, Creatinine 8.69*H, Sodium Level 140, Potassium Level 3.7, Chloride Level 105, Carbon Dioxide Level 28, Calcium Level 8.6 09/23/18 11:43: Bedside Glucose (Misc Panel) 146H CBC/BMP Laboratory Tests 09/23/18 05:39 Red Blood Count 3.40 L, Mean Corpuscular Volume 91.8, Mean Corpuscular Hemoglobin 29.7, Mean Corpuscular Hemoglobin Concent 32.4, Red Cell Distribution Width 15.2 H, Calcium Level 8.6 09/23/18 11:52 Microbiology Microbiology 09/21/18 Acid Fast Stain, Received Pending 09/21/18 Mycobacterial Culture, Received Pending 09/21/18 Fungal Smear, Received Pending 09/21/18 Fungal Culture, Received Pending 09/21/18 Gram Stain - Final, Complete 09/21/18 Body Fluid Culture - Final, Complete 09/21/18 Anaerobic Culture - Final, Complete 09/13/18 Acid Fast Stain, Received Pending 09/13/18 Mycobacterial Culture, Received Pending 09/13/18 Fungal Smear, Received Pending 09/13/18 Fungal Culture, Received Pending 09/13/18 Gram Stain - Final, Complete 09/13/18 Body Fluid Culture - Final, Complete Staphylococcus Hominis Ssp Williams 09/13/18 Anaerobic Culture - Final, Complete 09/13/18 Body Fluid Culture - Final, Complete 09/13/18 Stool Lactoferrin - Final, Complete 09/13/18 Gastrointestinal Tract Panel (PCR) - Final, Complete Sharon Ziegler Sep 23, 2018 14:30
[2018-09-23 18:18] LABS: HEMATOCRIT 35.5 % (36.0-47.0); HEMOGLOBIN 11.3 g/dl (12.0-15.5)
[2018-09-23 21:06] LABS: PERITONEAL FL COLOR PINK (COLORLESS); SOURCE, BODY FLUID PERITONEAL
[2018-09-23 21:07] LABS: APPEARANCE, BODY FLUID HAZY (CLEAR)
[2018-09-23] MEDS: GENTAMICIN SULFATE 0.1% OINT 15 GM TOP SCH (21:12)
[2018-09-23 22:00] VITALS: BP 162/70
[2018-09-24 00:14] LABS: HEMATOCRIT 31.1 % (36.0-47.0)
[2018-09-24] MEDS: LEVOTHYROXINE 75MCG TABLET (0.075MG) PO SCH (05:35)
[2018-09-24 06:00] VITALS: BP 152/79
[2018-09-24 07:13] LABS: HEMATOCRIT 33.1 % (36.0-47.0); HEMOGLOBIN 10.6 g/dl (12.0-15.5); MEAN CORPUSCULAR HEMOGLOBIN 30.6 pg (27.0-33.0); MEAN CORPUSCULAR VOLUME 95.7 fl (80.0-96.0); PLATELET COUNT, AUTOMATED 133 10^3/uL (150-450); RED BLOOD COUNT 3.46 10^6/uL (4.00-5.40); WHITE BLOOD COUNT 6.9 10^3/uL (4.0-10.0)
[2018-09-24 07:38] LABS: CALCIUM LEVEL 8.1 MG/DL (8.5-10.1); CREATININE FOR GFR 8.48 MG/DL (0.55-1.30); GLOMERULAR FILTRATION RATE 5.4 (>58); POTASSIUM SERUM 3.7 MEQ/L (3.5-5.1)
[2018-09-24 07:57] LABS: MAGNESIUM LEVEL 1.7 MG/DL (1.8-2.4)
[2018-09-24] MEDS: SUCRALFATE 1 GM TAB PO SCH ×4 (08:05→21:03)
[2018-09-24] MEDS: LISINOPRIL 10 MG TAB PO SCH ×2 (08:05→21:04)
[2018-09-24] MEDS: NYSTATIN 500,000 U/5 ML SUSP UDC SS SCH ×4 (08:05→21:03)
[2018-09-24] MEDS: PRENATAL VITAMINS CHEWABLE TABLET PO SCH (08:05)
[2018-09-24] MEDS: CALCITRIOL 0.25 MCG CAP (S0169) PO SCH (08:06)
[2018-09-24] MEDS: ISOSORBIDE MON. (IMDUR) 30 MG XR TAB PO SCH (08:06)
[2018-09-24] MEDS: LINEZOLID 600MG TABLET (ZYVOX) PO SCH ×2 (08:06→21:03)
[2018-09-24] MEDS: OMEPRAZOLE 20 MG CAP PO SCH ×2 (08:06→21:03)
[2018-09-24] MEDS: METOPROLOL TART 25 MG TABLET PO SCH ×2 (08:06→21:04)
[2018-09-24] MEDS: HumaLOG INSULIN (NovoLOG) PER UNIT SC SCH ×4 (08:07→20:53)
[2018-09-24] MEDS: ANUSOL HC CREAM 30GM TOP SCH ×2 (09:00→21:05)
--- NOTE | 2018-09-24 09:04 | IPNPDOC ---
Date Seen The patient was seen on 09/24/18. Progress Note Vascular surgery Dr Bunch. HPI: Pt is a 48yo F with End-stage renal disease, S/P PD catheter removal and re insertion 09/16/18. 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 Denies any fevers, chills, weakness, fatigue, Headache, Chest Pain, Shortness of breath, cough, palpitations, abdominal pain, N/V/D or changes in bowel or bladder habits. PMH End-stage renal disease on peritoneal dialysis, diabetes mellitus type 2, hypertension, hyperlipidemia, systolic congestive heart failure with ejection fraction 25-30% at baseline, pericardial effusion status post pericardiocentesis in 2016, peripheral vascular disease, chronic anemia, peripheral neuropathy, hypothyroidism, diabetic neuropathy and retinopathy Surgical History Cardiac catheterization in March 2016 without stent placement, hysterectomy, right foot biopsy, right chest tube placement in 2015, pericardial centesis with tube pericardiostomy, section, tubal ligation, left upper extremity AV fistula creation leading to steal syndrome following which it was ligated with placement of right lower extremity graft, kidney and liver biopsies PE: GEN: 48yoF, appears stated age. HEENT: Normocephalic, atraumatic. Sclera are nonicteric. Conjunctiva without injection. Moist mucous membranes. ABD: Round, soft, non distended. PD cath in place. Dressings clean and dry. EXT: No lower extremity edema appreciated. SKIN: [place], dry, warm. No rashes. NEURO: No focal deficits appreciated. A&P: 1. H/O recurrent nonfunctioning PD catheter. S/P PD catheter removal and re insertion 09/16/18. Blood has been reported in PD cath drainage. Dr Bunch aware. Afebrile. WBC 6.9 Hgb 10.6. S/P IV Meropenem. PD fluid culture 09/21/18 pending. Plan to trend cell count. RBC 3 09/23/18. Pt is reviewed and discussed with Dr Bunch. Continue to monitor. 2. Anemia. S/P 3 u PRBC. Aranesp as per nephrlogy. Hgb 10.6 3. ESRD. Dialysis as per Nephrology. VS, I&O, 24H, Fishbone Vital Signs/I&O Vital Signs Date Time Temp Pulse Resp B/P (MAP) Pulse Ox O2 Delivery O2 Flow Rate FiO2 09/24/18 08:06 76 152/79 09/24/18 06:00 97.1 20 97 09/18/18 21:12 1.0 I&O- Last 24 Hours up to 6 AM 09/24/18 06:00 Intake Total 6960 ml Output Total 5100 ml Balance 1860 ml Laboratory Data 24H LABS Laboratory Tests 2 09/23/18 11:43: Bedside Glucose (Misc Panel) 146H 09/23/18 16:54: Bedside Glucose (Misc Panel) 157H 09/23/18 18:29: Body Fluid WBC (Auto) 44H, Body Fluid RBC (Auto) 3, Body Fluid Mononuclear Cells % Auto 68.2H, Fluid Polymorphonuclear Cell % Auto 31.8H, Peritoneal Fluid Source PERITONEAL, Peritoneal Fluid Color PINK, Peritoneal Fluid Appearance HAZY 09/23/18 20:12: Bedside Glucose (Misc Panel) 145H 09/24/18 06:22: Bedside Glucose (Misc Panel) 196H 09/24/18 07:01: Nucleated Red Blood Cells % (auto) 0.0, Anion Gap 7L, Glomerular Filtration Rate 5.4L, Blood Urea Nitrogen 42H, Creatinine 8.48*H, Sodium Level 140, Potassium [place] 3.7, Chloride Level 105, Carbon Dioxide Level 28, Calcium Level 8.1L, Magnesium Level 1.7L CBC/BMP Laboratory Tests 09/23/18 11:52 09/23/18 17:48 09/23/18 23:53 09/24/18 07:01 Red Blood Count 3.46 L, Mean Corpuscular Volume 95.7, Mean Corpuscular Hemoglobin 30.6, Mean Corpuscular Hemoglobin Concent 32.0, Red Cell Distribution Width 14.9 H, Calcium Level 8.1 L Microbiology Microbiology 09/21/18 Acid Fast Stain, Received Pending 09/21/18 Mycobacterial Culture, Received Pending 09/21/18 Fungal Smear, Received Pending 09/21/18 Fungal Culture, Received Pending 09/21/18 Gram Stain - Final, Complete 09/21/18 Body Fluid Culture - Final, Complete 09/21/18 Anaerobic Culture - Final, Complete Sharon Ziegler Sep 24, 2018 09:04
--- NOTE | 2018-09-24 12:38 | IPN ---
DATE: 09/24/2018 Ms. Trivedi is seen this morning on her bedside. She continues to have complaint of lower abdomen and rectal area pain at the end of drainage of her peritoneal exchange. The fluid color is slightly pinkish. The patient denies any nausea, vomiting, dyspnea or chest pain. On physical examination, temperature 97 degrees Fahrenheit, heart rate 76 per minute and respiratory rate 20 per minute. Blood pressure 152/79 mmHg and oxygen saturation 97% on room air. Head is atraumatic. There is no oral thrush or ulcers. Neck is supple and without jugular venous distention (JVD) or thyroid enlargement. Heart sounds are regular and lungs clear to auscultation. Abdomen soft and bowel sounds are normal. Surgical incisions are clean and healing. Extremities have no cyanosis or clubbing. Lower extremity edema is 1+. Neurologically she is awake, alert and oriented times three. Today's labs show WBC count 6.9, hemoglobin 10.6 and hematocrit 33.1. Sodium 140, potassium 3.7, CO2 28, BUN 42, creatinine 8.48, glucose 213 and calcium 8.1. PROBLEMS: 1. End-stage renal disease. The patient remains on peritoneal dialysis. I am going to increase the frequency of her exchanges due to gradual increase in her serum creatinine and possible under dosed dialysis. 2. Anemia and bleeding into peritoneal cavity. She seems to be improving and her anemia is stable at this point. We will continue to watch her closely. I am concerned about the pain that she feels at the time of bowel movement and at the end of her drainage. We will see what Dr. Bunch feels about it and if her catheter needs to be repositioned. 3. Hypertension. Blood pressure is very well controlled and no changes in antihypertensives are being made. 4. Edema and hypervolemia. The patient seems to have worsening volume status with some peripheral edema. I am going to increase her dialysis frequency to make it five exchanges per day with 2.5% solution.
[2018-09-24 14:00] VITALS: BP 140/75
--- NOTE | 2018-09-24 15:25 | IPNPDOC ---
Text Note Date of Service The patient was seen on 09/24/18. NOTE Subjective: Patient was seen and examined at the bedside rounds this morning. She is playing with her grand niece who is visiting. She continues with lower abdomen pain. Her PD cath exchanges are still a bit bloody, she still reports extreme abdominal pain about 10 minutes into her PD exchanges and at the end of a BM with rectal pain. Denies nausea, vomiting, constipation, diarrhea. Patient denies chest pain, shortness breath. ROS: 12 point ROS negative except for pertinent positives above Objective: Vitals (See below) General: sitting up in bed, NAD, comfortable, AAOx3 HEENT: nares patent b/l, moist mucus membranes, no JVP CVS: RRR, normal s1 and s2, no murmurs, rubs or gallops Lungs: CTA b/l, no rales, rhonchi or wheezing Abdomen: tender b/l lower abdomen, no distension, nabsx4, no hepatosplenomegaly or masses appreciated,no rebound ridgity or guarding Extremities: No evidence of lower extremity edema, cyanosis or mottling Imaging: - CT abdomen / pelvis 09/11: 1. Small to moderate amount of pneumoperitoneum likely related to peritoneal dialysis although correlation is required to exclud e perforated viscus. The small large bowel is grossly unremarkable in appearance. 2. Cholelithiasis without evidence for acute cholecystitis. 3. Mild atrophic changes to the kidneys without hydronephrosis. 4. No further acute abdominopelvic pathology appreciated. - CT abdomen / pelvis 09/13: Remonstration of pneumoperitoneum likely related to peritoneal dialysis catheter. Perforated hollow viscus cannot be entirely excluded. Clinical correlation is advised. Interval development of moderate to large ascites. Interval increase in right pleural effusion. Suspect volume overload. Cholelithiasis. No specific evidence of acute cholecystitis. - CT Abdomen 09/17: 1. Moderate bibasilar atelectasis and small right pleural effusion slightly increased from prior examination. 2. Moderate amount of ascites and pneumoperitoneum essentially unchanged and possibly related to peritoneal dialysis although bowel perforation cannot definitively be excluded. 3. Suggestions for possible enterocolitis with mild wall thickening to the bowel. However this may be secondary to chronic peritoneal fluid irritation. -CXR 09/18: Mild bibasilar atelectatic change. -CT abdomen / pelvis 09/19: 1. There is a moderate amount of free intraperitoneal fluid present. 2. Thickened wall of the distal esophagus. Finding may be related to reflux esophagitis however an esophageal neoplasm should be excluded clinically. 3. Free intraperitoneal air possibly related to peritoneal dialysis. 4. There are gallstones present. No CT evidence of cholecystitis demonstrated. 5. Anasarca. 6. There has been a hysterectomy. Assessment and plan: 1.Chronic abdominal pain - possibly 2/2 peritonitis, possibly 2/2 dysfunctional peritoneal dialysis catheter, possibly 2/2 esophagitis - On physical examination, she unfortunately does still have lower abdominal pain, she states this is excruciating about 10 minutes into PD exchanges with rectal pain as well - According to notes, vascular sx would like to trend RBC in peritoneal fluid for now - No leukocytosis and she remains afebrile - Fluid analysis consistent with possible infection; although counts are not significantly high-c/w Zyvox - Peritoneal culture 09/13: Staph Hominis; Repeat cultures 6.8.19 no growth anaerobically or aerobically, moderate RBC, few WBC without organism growth - Imaging as above - s/p Meropenem (completed 10 day course), c/w Zyvox for now day #3 2. 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 ESRD on PD - s/p Dysfunctional peritoneal dialysis catheter - was replaced on 09/16 - s/p Temporary HD via right thigh graft - Cr continues to trend upward, a bit better at 8.48 today today - Fluid output still reveals some improving red tinge; discussed with Vascular surgery as discussed above - Nephrology and Vascular surgery on consultation; appreciate their input -Nephrology has changed PD to five exchanges per day with 2.5% solution 4. Thrombocytopenia - Platelet count has fluctuated throughout hospital course; a bit lower today at 133 5. Normocytic anemia - likely 2/2 AOCD - s/p 3 units PRBC -h/h stable today 6. HTN - BP appears better controlled-125/70 - c/w Metoprolol, Lisinopril, Isosorbide Mononitrate 7. IDDM2 with Neuropathy and Retinopathy - Currently off Levemir - c/w ISS 8. Hypothyroidism - c/w Levothyroxine 9. s/p Hypokalemia -K is 3.7 today DVT prophylaxis - c/w SCOT/Sequentials 4. Thrombocytopenia - Platelet count has fluctuated throughout hospital course; stable at 133 5. Normocytic anemia - likely 2/2 AOCD - s/p 3 units PRBC - Hg has decreased a bit today, repeat CBC at noon, she is still having blood t inged PD cath exchanges, vascular sx aware 6. HTN - BP appears better controlled-140/75 - c/w Metoprolol, Lisinopril, Isosorbide Mononitrate 7. IDDM2 with Neuropathy and Retinopathy - Currently off Levemir - c/w ISS 8. Hypothyroidism - c/w Levothyroxine 9. s/p Hypokalemia -K is 3.7 today DVT prophylaxis - c/w SCOT/Sequentials VS,Fishbone, I+O VS, Fishbone, I+O Laboratory Tests 09/23/18 17:48 09/23/18 23:53 09/24/18 07:01 Red Blood Count 3.46 L, Mean Corpuscular Volume 95.7, Mean Corpuscular Hemoglobin 30.6, Mean Corpuscular Hemoglobin Concent 32.0, Red Cell Distribution Width 14.9 H, Calcium Level 8.1 L Vital Signs Date Time Temp Pulse Resp B/P (MAP) Pulse Ox O2 Delivery O2 Flow Rate FiO2 09/24/18 08:06 76 152/79 09/24/18 06:00 97.1 20 97 09/18/18 21:12 1.0 I&O- Last 24 Hours up to 6 AM 09/24/18 06:00 Intake Total 6960 ml Output Total 5100 ml Balance 1860 ml GME ATTESTATION GME ATTESTATION My faculty preceptor for this patient encounter was physically present during the encounter and was fully available. All aspects of the patient interview, examination, medical decision making process, and medical care plan development were reviewed and approved by the faculty preceptor. The faculty preceptor is aware and concurs with the plan as stated in the body of this note and will attest to such by his/her cosignature. ATTENDING NOTE I, Pedrito Albarado, have independently examined this patient and performed my own physical exam, as well as reviewed the documentation and edited where necessary. I have discussed in detail with the resident / student the findings and plan of treatment as documented by the resident / student and edited their note. I agree with their findings and treatment plan and have edited their documentation. I will continue to follow the patient during this hospital stay. GRIFFIN MARTINS DO Sep 24, 2018 15:25 PEDRITO ALBARADO MD Oct 03, 2018 15:30
--- NOTE | 2018-09-24 15:33 | IPNPDOC ---
Text Note Date of Service The patient was seen on 09/24/18. NOTE Subjective: Patient was seen and examined at the bedside rounds this morning. She is playing with her grand niece who is visiting. She continues with lower abdomen pain. Her PD cath exchanges are still a bit bloody, she still reports extreme abdominal pain about 10 minutes into her PD exchanges and at the end of a BM with rectal pain. Denies nausea, vomiting, constipation, diarrhea. Patient denies chest pain, shortness breath. ROS: 12 point ROS negative except for pertinent positives above Objective: Vitals (See below) General: sitting up in bed, NAD, comfortable, AAOx3 HEENT: nares patent b/l, moist mucus membranes, no JVP CVS: RRR, normal s1 and s2, no murmurs, rubs or gallops Lungs: CTA b/l, no rales, rhonchi or wheezing Abdomen: tender b/l lower abdomen, no distension, nabsx4, no hepatosplenomegaly or masses appreciated,no rebound ridgity or guarding Extremities: No evidence of lower extremity edema, cyanosis or mottling Imaging: - CT abdomen / pelvis 09/11: 1. Small to moderate amount of pneumoperitoneum likely related to peritoneal dialysis although correlation is required to exclud e perforated viscus. The small large bowel is grossly unremarkable in appearance. 2. Cholelithiasis without evidence for acute cholecystitis. 3. Mild atrophic changes to the kidneys without hydronephrosis. 4. No further acute abdominopelvic pathology appreciated. - CT abdomen / pelvis 09/13: Remonstration of pneumoperitoneum likely related to peritoneal dialysis catheter. Perforated hollow viscus cannot be entirely excluded. Clinical correlation is advised. Interval development of moderate to large ascites. Interval increase in right pleural effusion. Suspect volume overload. Cholelithiasis. No specific evidence of acute cholecystitis. - CT Abdomen 09/17: 1. Moderate bibasilar atelectasis and small right pleural effusion slightly increased from prior examination. 2. Moderate amount of ascites and pneumoperitoneum essentially unchanged and possibly related to peritoneal dialysis although bowel perforation cannot definitively be excluded. 3. Suggestions for possible enterocolitis with mild wall thickening to the bowel. However this may be secondary to chronic peritoneal fluid irritation. -CXR 09/18: Mild bibasilar atelectatic change. -CT abdomen / pelvis 09/19: 1. There is a moderate amount of free intraperitoneal fluid present. 2. Thickened wall of the distal esophagus. Finding may be related to reflux esophagitis however an esophageal neoplasm should be excluded clinically. 3. Free intraperitoneal air possibly related to peritoneal dialysis. 4. There are gallstones present. No CT evidence of cholecystitis demonstrated. 5. Anasarca. 6. There has been a hysterectomy. Assessment and plan: 1.Chronic abdominal pain - possibly 2/2 peritonitis, possibly 2/2 dysfunctional peritoneal dialysis catheter, possibly 2/2 esophagitis - On physical examination, she unfortunately does still have lower abdominal pain, she states this is excruciating about 10 minutes into PD exchanges with rectal pain as well - According to notes, vascular sx would like to trend RBC in peritoneal fluid for now - No leukocytosis and she remains afebrile - Fluid analysis consistent with possible infection; although counts are not significantly high-c/w Zyvox - Peritoneal culture 09/13: Staph Hominis; Repeat cultures 6.8.19 no growth anaerobically or aerobically, moderate RBC, few WBC without organism growth - Imaging as above - s/p Meropenem (completed 10 day course), c/w Zyvox for now day #3 2. 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 ESRD on PD - s/p Dysfunctional peritoneal dialysis catheter - was replaced on 09/16 - s/p Temporary HD via right thigh graft - Cr continues to trend upward, a bit better at 8.48 today today - Fluid output still reveals some improving red tinge; discussed with Vascular surgery as discussed above - Nephrology and Vascular surgery on consultation; appreciate their input - Nephrology has changed PD to five exchanges per day with 2.5% solution 4. Thrombocytopenia - Platelet count has fluctuated throughout hospital course; a bit lower today at 133 5. Normocytic anemia - likely 2/2 AOCD - s/p 3 units PRBC - h/h stable today 6. HTN - BP appears better controlled-125/70 - c/w Metoprolol, Lisinopril, Isosorbide Mononitrate 7. IDDM2 with Neuropathy and Retinopathy - Currently off Levemir - c/w ISS 8. Hypothyroidism - c/w Levothyroxine 9. s/p Hypokalemia -K is 3.7 today DVT prophylaxis - c/w SCOT/Sequentials VS,Fishbone, I+O VS, Fishbone, I+O Laboratory Tests 09/23/18 17:48 09/23/18 23:53 09/24/18 07:01 Red Blood Count 3.46 L, Mean Corpuscular Volume 95.7, Mean Corpuscular Hemoglobin 30.6, Mean Corpuscular Hemoglobin Concent 32.0, Red Cell Distribution Width 14.9 H, Calcium Level 8.1 L Vital Signs Date Time Temp Pulse Resp B/P (MAP) Pulse Ox O2 Delivery O2 Flow Rate FiO2 09/24/18 14:00 97.7 84 18 140/75 (96) 100 09/18/18 21:12 1.0 I&O- Last 24 Hours up to 6 AM 09/24/18 06:00 Intake Total 6960 ml Output Total 5100 ml Balance 1860 ml GME ATTESTATION GME ATTESTATION My faculty preceptor for this patient encounter was physically present during the encounter and was fully available. All aspects of the patient interview, examination, medical decision making process, and medical care plan development were reviewed and approved by the faculty preceptor. The faculty preceptor is aware and concurs with the plan as stated in the body of this note and will attest to such by his/her cosignature. ATTENDING NOTE I, Pedrito Albarado, have both independently examined this patient as well as reviewed the documentation. I have discussed in detail with the resident the findings and plan of treatment as documented by the resident. I agree with their findings and treatment plan. I will continue to follow the patient and offer further guidance to the patients care as necessary during this hospital stay. PEDRITO ALBARADO MD Sep 24, 2018 15:33
[2018-09-24 16:15] LABS: APPEARANCE, BODY FLUID HAZY (CLEAR); PERITONEAL FL COLOR YELLOW (COLORLESS); SOURCE, BODY FLUID PERITONEAL
[2018-09-24] MEDS: ACETAMINOPHEN TAB 650MG DOSE (2X325MG) PO PRN (18:08)
[2018-09-24] MEDS: GENTAMICIN SULFATE 0.1% OINT 15 GM TOP SCH (21:05)
[2018-09-24 22:00] VITALS: BP 136/70
[2018-09-25] MEDS: LEVOTHYROXINE 75MCG TABLET (0.075MG) PO SCH (05:40)
[2018-09-25 06:00] VITALS: BP 157/69
[2018-09-25 06:30] LABS: BASO # 0.1 10^3/uL (0.0-0.2); BASO % 1.5 % (0.0-1.0); EOS # 0.3 10^3/uL (0.0-0.50); EOS % 3.9 % (0.0-3.0); HEMOGLOBIN 10.2 g/dl (12.0-15.5); LYMPH # 1.3 10^3/uL (1.5-4.5); LYMPH % 16.8 % (24.0-44.0); MEAN CORPUSCULAR HEMOGLOBIN 29.7 pg (27.0-33.0); MEAN CORPUSCULAR HGB CONC 31.9 g/dl (32.0-36.5); MONO # 0.8 10^3/uL (0.0-0.8); MONO % 10.5 % (0.0-5.0); NEUTROPHILS % 66.9 % (36.0-66.0); PLATELET COUNT, AUTOMATED 151 10^3/uL (150-450); RED BLOOD COUNT 3.44 10^6/uL (4.00-5.40); WHITE BLOOD COUNT 7.5 10^3/uL (4.0-10.0)
[2018-09-25 07:11] LABS: CREATININE FOR GFR 8.47 MG/DL (0.55-1.30); GLOMERULAR FILTRATION RATE 5.4 (>58); MAGNESIUM LEVEL 1.8 MG/DL (1.8-2.4); POTASSIUM SERUM 3.5 MEQ/L (3.5-5.1)
[2018-09-25 07:14] LABS: PERITONEAL FL COLOR PALE YELLOW (COLORLESS); SOURCE, BODY FLUID PERITONEAL
[2018-09-25 07:15] LABS: APPEARANCE, BODY FLUID HAZY (CLEAR)
[2018-09-25] MEDS ORDERED: POTASSIUM CHLORIDE 10 MEQ SR TABLET PO ONE (09:30)
[2018-09-25] MEDS: NYSTATIN 500,000 U/5 ML SUSP UDC SS SCH (09:46)
[2018-09-25] MEDS: OMEPRAZOLE 20 MG CAP PO SCH (09:46)
[2018-09-25] MEDS: SUCRALFATE 1 GM TAB PO SCH (09:46)
[2018-09-25] MEDS: LINEZOLID 600MG TABLET (ZYVOX) PO SCH (09:47)
[2018-09-25] MEDS: CALCITRIOL 0.25 MCG CAP (S0169) PO SCH (09:47)
[2018-09-25] MEDS: PRENATAL VITAMINS CHEWABLE TABLET PO SCH (09:47)
[2018-09-25] MEDS: HumaLOG INSULIN (NovoLOG) PER UNIT SC SCH (09:48)
[2018-09-25] MEDS: LISINOPRIL 10 MG TAB PO SCH (09:50)
[2018-09-25] MEDS: ISOSORBIDE MON. (IMDUR) 30 MG XR TAB PO SCH (09:50)
[2018-09-25 09:51] VITALS: BP 149/63
[2018-09-25] MEDS: METOPROLOL TART 25 MG TABLET PO SCH (09:51)
[2018-09-25] MEDS: ANUSOL HC CREAM 30GM TOP SCH (09:52)
--- NOTE | 2018-09-25 10:18 | IPNPDOC ---
Text Note Date of Service The patient was seen on 09/25/18. NOTE Patient was seen and examined at the bedside rounds this morning. She is sad, says she is becoming depressed being in the hospital, she doesn't want to be here anymore. She says her sons graduation is this sunday from high school and she wont miss that, she says she will leave AMA if she has to. She says her abdominal pain is much improved as is her rectal pain from using anusol, she still has some minimal abdominal discomfort at the end of her PD exchanges but she says this is improved. She states her PD exchanges have been much more clear. Denies nausea, vomiting, constipation, diarrhea. Patient denies chest pain, shortness breath. ROS: 12 point ROS negative except for pertinent positives above Objective: Vitals (See below) General: sitting up in bed, NAD, comfortable, AAOx3 HEENT: nares patent b/l, moist mucus membranes, no JVP CVS: RRR, normal s1 and s2, no murmurs, rubs or gallops Lungs: CTA b/l, no rales, rhonchi or wheezing Abdomen: improved tenderness today to b/l lower abdomen, no distension, nabsx4, no hepatosplenomegaly or masses appreciated,no rebound ridgity or guarding, PD cath in place Extremities: No evidence of lower extremity edema, cyanosis or mottling Imaging: - CT abdomen / pelvis 09/11: 1. Small to moderate amount of pneumoperitoneum likely related to peritoneal dialysis although correlation is required to exclude perforated viscus. The small large bowel is grossly unremarkable in appearance. 2. Cholelithiasis without evidence for acute cholecystitis. 3. Mild atrophic changes to the kidneys without hydronephrosis. 4. No further acute abdominopelvic pathology appreciated. - CT abdomen / pelvis 09/13: Remonstration of pneumoperitoneum likely related to peritoneal dialysis catheter. Perforated hollow viscus cannot be entirely excluded. Clinical correlation is advised. Interval development of moderate to large ascites. Interval increase in right pleural effusion. Suspect volume overload. Cholelithiasis. No specific evidence of acute cholecystitis. - CT Abdomen 09/17: 1. Moderate bibasilar atelectasis and small right pleural effusion slightly increased from prior examination. 2. Moderate amount of ascites and pneumoperitoneum essentially unchanged and possibly related to peritoneal dialysis although bowel perforation cannot definitively be excluded. 3. Suggestions for possible enterocolitis with mild wall thickening to the bowel. However this may be secondary to chronic peritoneal fluid irritation. -CXR 09/18: Mild bibasilar atelectatic change. -CT abdomen / pelvis 09/19: 1. There is a moderate amount of free intraperitoneal fluid present. 2. Thickened wall of the distal esophagus. Finding may be related to reflux esophagitis however an esophageal neoplasm should be excluded clinically. 3. Free intraperitoneal air possibly related to peritoneal dialysis. 4. There are gallstones present. No CT evidence of cholecystitis demonstrated. 5. Anasarca. 6. There has been a hysterectomy. Assessment and plan: 1.Chronic abdominal pain - possibly 2/2 peritonitis, possibly 2/2 dysfunctional peritoneal dialysis catheter, possibly 2/2 esophagitis - On physical examination, appears to have much improved abdominal pain - According to notes, vascular sx would like to trend RBC in peritoneal fluid for now- 2 rbc today - No leukocytosis and she remains afebrile - Fluid analysis consistent with possible infection; although counts are not significantly high-c/w Zyvox for now day #4 - Peritoneal culture 09/13: Staph Hominis; Repeat cultures 6.8.19 no growth anaerobically or aerobically, moderate RBC, few WBC without organism growth - Imaging as above - s/p Meropenem (completed 10 day course), c/w Zyvox for now day #4 2. 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 ESRD on PD - s/p Dysfunctional peritoneal dialysis catheter - was replaced on 09/16 - s/p Temporary HD via right thigh graft - Cr continues to trend upward, stable at 8.47 today - Fluid output is reported to be more clear today, yellowish/clearish now; discussed with Vascular surgery as discussed above- RBC-ok from vascular sx for d/c - Nephrology and Vascular surgery on consultation; appreciate their input. As discussed above. - Nephrology has changed PD to five exchanges per day with 2.5% solution 4. Thrombocytopenia - Platelet count has fluctuated throughout hospital course; improved at 151 5. Normocytic anemia - likely 2/2 AOCD - s/p 3 units PRBC - h/h stable today 6. HTN - BP appears better controlled-149/63 - c/w Metoprolol, Lisinopril, Isosorbide Mononitrate 7. IDDM2 with Neuropathy and Retinopathy - Currently off Levemir - c/w ISS 8. Hypothyroidism - c/w Levothyroxine 9. s/p Hypokalemia and hypomag -she may benefit from being on PO Mag supplement, Mag was 1.8 today -K is 3.5 today DVT prophylaxis - c/w SCOT/Sequentials Disposition: Patient should work with PT., she states her abdominal pain is much improved and that her PD exchanges are clearer now, she is anxious to go home. We have discussed with Sharon BARRETT and it appears they are OK with d/c., we have reached out to nephrology to discuss this with them. Pending Nephrology input and PT for d.c. VS,Fishbone, I+O VS, Fishbone, I+O Laboratory Tests 09/25/18 06:20 Red Blood Count 3.44 L, Mean Corpuscular Volume 93.0, Mean Corpuscular Hemoglobin 29.7, Mean Corpuscular Hemoglobin Concent 31.9 L, Red Cell Distribution Width 15.0 H, Neutrophils (%) (Auto) 66.9 H, Lymphocytes (%) (Auto) 16.8 L, Monocytes (%) (Auto) 10.5 H, Eosinophils (%) (Auto) 3.9 H, Basophils (%) (Auto) 1.5 H, Neutrophils # (Auto) 5.0, Lymphocytes # (Auto) 1.3 L, Monocytes # (Auto) 0.8, Eosinophils # (Auto) 0.3, Basophils # (Auto) 0.1, Calcium Level 8.0 L Vital Signs Date Time Temp Pulse Resp B/P (MAP) Pulse Ox O2 Delivery O2 Flow Rate FiO2 09/25/18 09:51 82 149/63 09/25/18 06:00 97.0 18 99 I&O- Last 24 Hours up to 6 AM 09/25/18 06:00 Intake Total 6720 ml Output Total 5700 ml Balance 1020 ml GME ATTESTATION GME ATTESTATION My faculty preceptor for this patient encounter was physically present during the encounter and was fully available. All aspects of the patient interview, examination, medical decision making process, and medical care plan development were reviewed and approved by the faculty preceptor. The faculty preceptor is aware and concurs with the plan as stated in the body of this note and will attest to such by his/her cosignature. GRIFFIN MARTINS DO Sep 25, 2018 10:18
--- NOTE | 2018-09-25 10:27 | IPNPDOC ---
Date Seen The patient was seen on 09/25/18. Progress Note Vascular surgery Dr Bunch. HPI: Pt is a 48yo F with End-stage renal disease, S/P PD catheter removal and re insertion 09/16/18. 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 Denies any fevers, chills, weakness, fatigue, Headache, Chest Pain, Shortness of breath, cough, palpitations, abdominal pain, N/V/D or changes in bowel or bladder habits. PMH End-stage renal disease on peritoneal dialysis, diabetes mellitus type 2, hypertension, hyperlipidemia, systolic congestive heart failure with ejection fraction 25-30% at baseline, pericardial effusion status post pericardiocentesis in 2016, peripheral vascular disease, chronic anemia, peripheral neuropathy, hypothyroidism, diabetic neuropathy and retinopathy Surgical History Cardiac catheterization in March 2016 without stent placement, hysterectomy, right foot biopsy, right chest tube placement in 2015, pericardial centesis with tube pericardiostomy, section, tubal ligation, left upper extremity AV fistula creation leading to steal syndrome following which it was ligated with placement of right lower extremity graft, kidney and liver biopsies PE: GEN: 48yoF, appears stated age. HEENT: Normocephalic, atraumatic. Sclera are nonicteric. Conjunctiva without injection. Moist mucous membranes. ABD: Round, soft, non distended. PD cath in place. Dressings clean and dry. EXT: No lower extremity edema appreciated. SKIN: Elsa, dry, warm. No rashes. NEURO: No focal deficits appreciated. A&P: 1. H/O recurrent nonfunctioning PD catheter. S/P PD catheter removal and re insertion 09/16/18. Blood has previously been reported in PD cath drainage. Dr Bunch aware. Afebrile. Hgb 10.2. Stable. PD fluid culture 09/21/18 pending. Monitoring cell count. RBC 2 this AM, last PM 2. Pt is reviewed and discussed with Dr Bunch. Continue to monitor. 2. Anemia. S/P 3 u PRBC. Aranesp as per nephrlogy. Hgb 10.2 3. ESRD. Dialysis as per Nephrology. VS, I&O, 24H, Fishbone Vital Signs/I&O Vital Signs Date Time Temp Pulse Resp B/P (MAP) Pulse Ox O2 Delivery O2 Flow Rate FiO2 09/25/18 09:51 82 149/63 09/25/18 06:00 97.0 18 99 I&O- Last 24 Hours up to 6 AM 09/25/18 06:00 Intake Total 6720 ml Output Total 5700 ml Balance 1020 ml Laboratory Data 24H LABS Laboratory Tests 2 09/24/18 12:02: Bedside Glucose (Misc Panel) 130H 09/24/18 15:10: Body Fluid WBC (Auto) 301H, Body Fluid RBC (Auto) 2, Body Fluid Mononuclear Cells % Auto 43.9H, Fluid Polymorphonuclear Cell % Auto 56.1H, Peritoneal Fluid Source PERITONEAL, Peritoneal Fluid Color YELLOW, Peritoneal Fluid Appearance HAZY 09/24/18 16:49: Bedside Glucose (Misc Panel) 214H 09/24/18 20:27: Bedside Glucose (Misc Panel) 147H 09/25/18 06:10: Body Fluid WBC (Auto) 164H, Body Fluid RBC (Auto) 2, Body Fluid Mononuclear Cells % Auto 42.1H, Fluid Polymorphonuclear Cell % Auto 57.9H, Peritoneal Fluid Source PERITONEAL, Peritoneal Fluid Color PALE YELLOW, Peritoneal Fluid Appearance HAZY 09/25/18 06:20: Immature Granulocyte % (Auto) 0.4, White Blood Count 7.5, Red Blood Count 3.44L, Hemoglobin 10.2L, Hematocrit 32.0L, Mean Corpuscular Volume 93.0, Mean Corpuscular Hemoglobin 29.7, Mean Corpuscular Hemoglobin Concent 31.9L, Red Cell Distribution Width 15.0H, Platelet Count 151, Neutrophils (%) (Auto) 66.9H, Lymphocytes (%) (Auto) 16.8L, Monocytes (%) (Auto) 10.5H, Eosinophils (%) (Auto) 3.9H, Basophils (%) (Auto) 1.5H, Neutrophils # (Auto) 5.0, Lymphocytes # (Auto) 1.3L, Monocytes # (Auto) 0.8, Eosinophils # (Auto) 0.3, Basophils # (Auto) 0.1, Nucleated Red Blood Cells % (auto) 0.0, Anion Gap 7L, Glomerular Filtration Rate 5.4L, Blood Urea Nitrogen 41H, Creatinine 8.47*H, Sodium Level 141, Potassium Level 3.5, Chloride Level 105, Carbon Dioxide Level 29, Calcium Level 8.0L, Magnesium Level 1.8 CBC/BMP Laboratory Tests 09/25/18 06:20 Red Blood Count 3.44 L, Mean Corpuscular Volume 93.0, Mean Corpuscular Hemoglobin 29.7, Mean Corpuscular Hemoglobin Concent 31.9 L, Red Cell Distribution Width 15.0 H, Neutrophils (%) (Auto) 66.9 H, Lymphocytes (%) (Auto) 16.8 L, Monocytes (%) (Auto) 10.5 H, Eosinophils (%) (Auto) 3.9 H, Basophils (%) (Auto) 1.5 H, Neutrophils # (Auto) 5.0, Lymphocytes # (Auto) 1.3 L, Monocytes # (Auto) 0.8, Eosinophils # (Auto) 0.3, Basophils # (Auto) 0.1, Calcium Level 8.0 L Microbiology Microbiology 09/21/18 Acid Fast Stain, Received Pending 09/21/18 Mycobacterial Culture, Received Pending 09/21/18 Fungal Smear, Received Pending 09/21/18 Fungal Culture, Received Pending 09/21/18 Gram Stain - Final, Complete 09/21/18 Body Fluid Culture - Final, Complete 09/21/18 Anaerobic Culture - Final, Complete Sharon Ziegler Sep 25, 2018 10:27
[2018-09-25] MEDS ORDERED: SLOWTAB2 PO ×2 (10:35→11:17)
[2018-09-25] MEDS ORDERED: LISI10TA4 PO ×2 (10:35→11:17)
--- NOTE | 2018-09-25 10:50 | DS.PDOC ---
Discharge Summary General Date of Admission September 11, 2018 at 15:16 Date of Discharge 09/25/18 Discharge Summary PROCEDURES PERFORMED DURING STAY: HD, PD cath exchange with vascular surgery ADMITTING DIAGNOSES: 1. Intractable abdominal pain, nausea, vomiting rule out spontaneous bacterial peritonitis in setting of peritoneal dialysis catheter: DISCHARGE DIAGNOSES: 1. 1.Chronic abdominal pain - possibly 2/2 peritonitis, possibly 2/2 dysfunctional peritoneal dialysis catheter, possibly 2/2 esophagitis 2. Esophagitis 3. ESRD on PD 4. Thrombocytopenia 5. Normocytic anemia - likely 2/2 AOCD 6. HTN 7. IDDM2 with Neuropathy and Retinopathy 8. Hypothyroidism 9. s/p Hypokalemia and hypomag COMPLICATIONS/CHIEF COMPLAINT: Abdominal Pain Esrd. HISTORY OF PRESENT ILLNESS: This is a 48-year-old female with a history of end-stage renal disease currently on peritoneal dialysis who presents to the ER with complains of abdominal pain, nausea, vomiting as well as diarrhea. The patient reports her symptoms have been ongoing since August 23. She reports she was admitted at a hospital in [place] and was discharged around August 26at that time, it was thought her symptoms were related to gallstones although she apparently did not seem to have any problems with obstruction, was managed conservatively and was discharged home subsequently. However, she reports she has been having recurrence of the abdominal pain, chiefly in the right upper part of her abdomen, sharp in nature, associated with heartburn, 10 over 10 in intensity at worst, fairly constant, worse with moving, better with the morphine she received in the ER, seems to radiate towards her right back. She also reports having problems initially with coffee-ground emesis however, more recently, it has been cleared. She reports associated chills and sweats. She does report diarrhea however this seems to be chronic and she has not noticed any blood in her stools. She also reports problems with headaches. Reports poor vision out of her left eyereports she is getting laser treatment for the same. Denies any chest pain or shortness of breath although, when her abdominal pain and heartburn gets bad, it seems to affect her breathing. HOSPITAL COURSE: During the course of her hospital stay she was seen and treated by nephrology and vascular surgery, she is s/p catheter removal and re insertion 09/16/18. She had to undergo right thigh HD during her stay in order to be dialyzed since PD cath was not functioning properly, after the revision of PD cath she continued to experience some abdominal pain and bloody/blood tinged pd cath exchange dialysate fluid, she was monitored closely with trends in H/H, on day of d/c her abdominal pain was much improved, she had minimal rectal pain of which she had been complaining of in prior days after starting anusol, her dialysate fluid was noted to be more clear/yellowish, she was given the okay for discharge from nephrology and vascular. On day of d/c it was noted 2 RBC in dialysate PD fluid. She was treated with IV antibiotic in house and ro for peritonitis. She will be d/c on PO abx and slow mag magnesium supplement, her h/h was stable on day of d/c, of note she did receive 3 PRBC during her stay. DISCHARGE MEDICATIONS: Please see below. ALLERGIES: Please see below. PHYSICAL EXAMINATION ON DISCHARGE: Vitals (See below) General: sitting up in bed, NAD, comfortable, AAOx3 HEENT: nares patent b/l, moist mucus membranes, no JVP CVS: RRR, normal s1 and s2, no murmurs, rubs or gallops Lungs: CTA b/l, no rales, rhonchi or wheezing Abdomen: improved tenderness today to b/l lower abdomen, no distension, nabsx4, no hepatosplenomegaly or masses appreciated,no rebound ridgity or guarding, PD cath in place Extremities: No evidence of lower extremity edema, cyanosis or mottling LABORATORY DATA: Please see below. IMAGING: ab/pelvis ct 09.11.18 Impression: 1. Small to moderate amount of pneumoperitoneum likely related to peritoneal dialysis although correlation is required to exclude perforated viscus. The small large bowel is grossly unremarkable in appearance. 2. Cholelithiasis without evidence for acute cholecystitis. 3. Mild atrophic changes to the kidneys without hydronephrosis. 4. No further acute abdominopelvic pathology appreciated. ab/pelvis ct 09.13.18 Redemonstration of pneumoperitoneum likely related to peritoneal dialysis catheter. Perforated hollow viscus cannot be entirely excluded. Clinical correlation is advised. Interval development of moderate to large ascites. Interval increase in right pleural effusion. Suspect volume overload. Cholelithiasis. No specific evidence of acute cholecystitis. COMMENT: Consistent with the [employer]'s Incidental Findings Committee Report (J Am Christina Radiol 2010): Unless the patient's specific circumstances suggest otherwise, any liver lesion 0.5 cm or less, any cystic kidney lesion less than 1.0 cm, and/or any adrenal lesion 1.0 cm or less not otherwise characterized in this report as possessing suspicious or indeterminate imaging features is/are highly likely to be benign and do not require follow-up imaging or biopsy. abdomen ct 09.18.18 Impression: 1. Moderate bibasilar atelectasis and small right pleural effusion slightly increased from prior examination. 2. Moderate amount of ascites and pneumoperitoneum essentially unchanged and possibly related to peritoneal dialysis although bowel perforation cannot definitively be excluded. 3. Suggestions for possible enterocolitis with mild wall thickening to the bowel. However this may be secondary to chronic peritoneal fluid irritation. cxr 09.18.18 IMPRESSION: Mild bibasilar atelectatic change. ab/pelvis ct 09.19.18 IMPRESSION: 1. There is a moderate amount of free intraperitoneal fluid present. 2. Thickened wall of the distal esophagus. Finding may be related to reflux esophagitis however an esophageal neoplasm should be excluded clinically. 3. Free intraperitoneal air possibly related to peritoneal dialysis. 4. There are gallstones present. No CT evidence of cholecystitis demonstrated. 5. Anasarca. 6. There has been a hysterectomy. PROGNOSIS: stable ACTIVITY: As tolerated DIET: as tolerated DISCHARGE PLAN: - Follow up with pcp and nephrology w/in 5-7 days of dc - Remain compliant with treatment plan and medications - Return to the ER if you experience any problems DISPOSITION: Home DISCHARGE CONDITION: Stable & improved TIME SPENT ON DISCHARGE: Greater than 45 minutes. Vital Signs/I&Os Vital Signs Date Time Temp Pulse Resp B/P (MAP) Pulse Ox O2 Delivery O2 Flow Rate FiO2 09/25/18 09:51 82 149/63 09/25/18 06:00 97.0 18 99 I&O- Last 24 Hours up to 6 AM 09/25/18 06:00 Intake Total 6720 ml Output Total 5700 ml Balance 1020 ml Laboratory Data Labs 24H Laboratory Tests 2 09/24/18 12:02: Bedside Glucose (Misc Panel) 130H 09/24/18 15:10: Body Fluid WBC (Auto) 301H, Body Fluid RBC (Auto) 2, Body Fluid Mononuclear Cells % Auto 43.9H, Fluid Polymorphonuclear Cell % Auto 56.1H, Peritoneal Fluid Source PERITONEAL, Peritoneal Fluid Color YELLOW, Peritoneal Fluid Appearance HAZY 09/24/18 16:49: Bedside Glucose (Misc Panel) 214H 09/24/18 20:27: Bedside Glucose (Misc Panel) 147H 09/25/18 06:10: Body Fluid WBC (Auto) 164H, Body Fluid RBC (Auto) 2, Body Fluid Mononuclear Ce lls % Auto 42.1H, Fluid Polymorphonuclear Cell % Auto 57.9H, Peritoneal Fluid Source PERITONEAL, Peritoneal Fluid Color PALE YELLOW, Peritoneal Fluid Appearance HAZY 09/25/18 06:20: Immature Granulocyte % (Auto) 0.4, White Blood Count 7.5, Red Blood Count 3.44L, Hemoglobin 10.2L, Hematocrit 32.0L, Mean Corpuscular Volume 93.0, Mean Corpuscular Hemoglobin 29.7, Mean Corpuscular Hemoglobin Concent 31.9L, Red Cell Distribution Width 15.0H, Platelet Count 151, Neutrophils (%) (Auto) 66.9H, Lymphocytes (%) (Auto) 16.8L, Monocytes (%) (Auto) 10.5H, Eosinophils (%) (Auto) 3.9H, Basophils (%) (Auto) 1.5H, Neutrophils # (Auto) 5.0, Lymphocytes # (Auto) 1.3L, Monocytes # (Auto) 0.8, Eosinophils # (Auto) 0.3, Basophils # (Auto) 0.1, Nucleated Red Blood Cells % (auto) 0.0, Anion Gap 7L, Glomerular Filtration Rate 5.4L, Blood Urea Nitrogen 41H, Creatinine 8.47*H, Sodium Level 141, Potassium Level 3.5, Chloride Level 105, Carbon Dioxide Level 29, Calcium Level 8.0L, Magnesium Level 1.8 CBC/BMP Laboratory Tests 09/25/18 06:20 Red Blood Count 3.44 L, Mean Corpuscular Volume 93.0, Mean Corpuscular Hemoglobin 29.7, Mean Corpuscular Hemoglobin Concent 31.9 L, Red Cell Distribution Width 15.0 H, Neutrophils (%) (Auto) 66.9 H, Lymphocytes (%) (Auto) 16.8 L, Monocytes (%) (Auto) 10.5 H, Eosinophils (%) (Auto) 3.9 H, Basophils (%) (Auto) 1.5 H, Neutrophils # (Auto) 5.0, Lymphocytes # (Auto) 1.3 L, Monocytes # (Auto) 0.8, Eosinophils # (Auto) 0.3, Basophils # (Auto) 0.1, Calcium Level 8.0 L FSBS Laboratory Tests Test 09/24/18 12:02 09/24/18 16:49 09/24/18 20:27 Range/Units Bedside Glucose (Misc Panel) 130 214 147 70-105 MG/DL Microbiology Microbiology 09/21/18 Acid Fast Stain, Received Pending 09/21/18 Mycobacterial Culture, Received Pending 09/21/18 Fungal Smear, Received Pending 09/21/18 Fungal Culture, Received Pending 09/21/18 Gram Stain - Final, Complete 09/21/18 Body Fluid Culture - Final, Complete 09/21/18 Anaerobic Culture - Final, Complete Discharge Medications Scheduled Amino AC/Protein Hydr/Whey Pro (Liquacel Liquid Protein) 960 Ml Liquid, 1 LIQ PO 3XW, (Reported) MON/WED/FRI Calcitriol (Calcitriol) 0.25 Mcg Capsule, 0.5 MCG PO 3XW, (Reported) MON/WED/FRI Calcitriol (Calcitriol) 0.25 Mcg Capsule, 0.25 MCG PO 4XWK, (Reported) SUN//SUN/SUN Ergocalciferol (Vitamin D2) (Drisdol) 50,000 Unit Capsule, 50,000 UNIT PO QWEEK, (Reported) SUNDAYS Ferric Citrate (Auryxia) 210 Mg Tab, 420 MG PO TID, (Reported) Folic Acid/Vit B Complex and C (April-Antonina Tablet) 1 Tab Tab, 1 TAB PO DAILY, ( Reported) Gentamicin Sulfate (Gentamicin Sulfate) 15 Gm Oint...g., 1 APLCT TOP QHS, (Reported) APPLY WITH EACH DRESSING CHANGE TO PERITONEAL DIALYSIS SITE Insulin Glargine,Hum.rec.anlog (Basaglar Kwikpen U-100) 100 Unit/1 Ml Insuln.pen, 20 UNIT SC QHS, (Reported) Isosorbide Mononitrate (Isosorbide Mononitrate ER) 30 Mg Tab, 30 MG PO DAILY, (Reported) Levothyroxine Sodium (Levothyroxine Sodium) 75 Mcg Tablet, 75 MCG PO QAM, (Reported) Linezolid (Linezolid) 600 Mg Tablet, 1 TAB PO BID Lisinopril (Lisinopril) 10 Mg Tablet, 10 MG PO DAILY Magnesium Chloride (Slow-Mag) 71.5 Mg Tablet.dr, 1 TAB PO DAILY Methoxy Peg-Epoetin Beta (Mircera) 75 Mcg/0.3 Ml Syringe, 75 MCG SC QMONTH, (Reported) Metoprolol Tartrate (Metoprolol Tartrate) 25 Mg Tablet, 25 MG PO BID, (Reported) Omeprazole (Omeprazole) 20 Mg Capsule.dr, 40 MG PO BID Sevelamer Carbonate (Sevelamer Carbonate) 800 Mg Tab, 2,400 MG PO TID, (Reported) Sucralfate (Sucralfate) 1 Gm Tablet, 1 GM PO ACHS Allergies Coded Allergies: Penicillins (Verified Allergy, Unknown, UNKNOWN CHILDHOOD REACTION, 09/11/18) PER [facility] REC[facility] PT HAS RECEIVED MEROPENEM AND CEFEPIME IN THE PAST GME ATTESTATION GME ATTESTATION My faculty preceptor for this patient encounter was physically present during the encounter and was fully available. All aspects of the patient interview, examination, medical decision making process, and medical care plan development were reviewed and approved by the faculty preceptor. The faculty preceptor is aware and concurs with the plan as stated in the body of this note and will attest to such by his/her cosignature. ATTENDING NOTE I, Pedrito Albarado, have both independently examined this patient as well as reviewed the documentation. I have discussed in detail with the resident the findings and plan of treatment as documented by the resident. I agree with their findings and treatment plan. I will continue to follow the patient and offer further guidance to the patients care as necessary during this hospital stay. Time spent on discharge 38 minutes GRIFFIN MARTINS DO Sep 25, 2018 10:50 PEDRITO ALBARADO MD Sep 25, 2018 15:47
[2018-09-25] MEDS ORDERED: LINE1TAB PO (11:17)
[2018-09-25] MEDS ORDERED: SUCR1TA PO (11:17)
[2018-09-25] MEDS ORDERED: OMEP-218 PO (11:17)
--- NOTE | 2018-09-25 12:34 | IPN ---
DATE OF VISIT: 09/25/2018 Miss Trivedi is seen this morning on her bedside. She is feeling better and wants to go home. Her peritoneal fluid has relatively cleared and blood has decreased. The patient denies any nausea or vomiting. She continues to have lower abdominal and rectal pain at the end of drainage. She has no dyspnea, chest pain, fever or chills. She is now on oral Zyvox for peritonitis. PHYSICAL EXAMINATION: Temperature 97 degrees Fahrenheit, heart rate 82 per minute and respiratory rate 18 per minute. Blood pressure 149/67 mmHg and oxygen saturation 99% on room air. Head is atraumatic. Neck is supple and without jugular venous distention (JVD) or thyroid enlargement. Heart sounds regular and lungs clear to auscultation. Abdomen soft and bowel sounds are present. Peritoneal dialysis catheter is intact. Surgical incisions are clean and dry. Extremities have no cyanosis or clubbing. Neurologically she is awake, alert and at her baseline mentation. Today's labs show WBC count 7.5, hemoglobin 10.2 and hematocrit 32.0. Platelets 151. Sodium 141, potassium 3.5, CO2 29, BUN 41 and creatinine 8.47. PROBLEMS: 1. End-stage renal disease. The patient remains dialysis dependent and continues with peritoneal dialysis. I had increased her exchanges to five exchanges per day. She will go home today and was resume her cycler dialysis at night. I have given instructions to dialysis nursing staff for adjustment in her prescription. 2. Hypokalemia. The patient will be started on potassium chloride 20 mEq one tablet daily. Her electrolytes will be monitored as an outpatient. 3. Anemia. She does have low grade bleeding in her peritoneal cavity. Her anemia is stable at this point and no further intervention is indicated. She will be monitored and managed as an outpatient. 4. Bleeding into peritoneal cavity. She did have robert blood in the peritoneal fluid which has gradually cleared over last couple of weeks. At this point I feel that she can be discharged to home and followup as an outpatient. She is not receiving any anticoagulation. DISPOSITION: From a renal standpoint, the patient can be discharged to home today and she will followup in outpatient dialysis clinic within the next couple of weeks.
[2018-09-26] MEDS ORDERED: POTASSIUM CHLORIDE 10 MEQ SR TABLET PO SCH (09:00)
--- NOTE | 2018-10-23 14:28 | RO ---
DATE OF PROCEDURE: 09/16/2018 PREOPERATIVE DIAGNOSIS: Dysfunctional peritoneal dialysis catheter. POSTOPERATIVE DIAGNOSIS: Dysfunctional peritoneal dialysis catheter. PROCEDURE: Laparoscopic peritoneal dialysis catheter exploration. Laparoscopic peritoneal dialysis catheter insertion. Removal of peritoneal dialysis catheter. ATTENDING SURGEON: Dr. Magdalena Bunch LAMINATION BUILDER: None. INDICATION: The patient is 48-year-old female with a nonfunctioning peritoneal dialysis catheter requires evaluation. The patient will undergo a laparoscopic peritoneal dialysis catheter evaluation. ANESTHESIA: General endotracheal. ESTIMATED BLOOD LOSS: 20 mL. IV FLUIDS: 250 mL. HEPARIN: None. COMPLICATIONS: None. DRAINS: None. SPECIMENS: None. IMPLANTS: None. PROCEDURE: Patient was taken the operating room, placed supine on the operating room table. The abdomen was insufflated through the existing peritoneal dialysis catheter. The scope was then placed through a 5 mm port placed in the left upper quadrant under direct laparoscopic visualization and this showed the catheter to buried within the bowel and turned upward. The catheter was removed and a new catheter was placed under direct laparoscopic visualization. The abdomen was desufflated. A liter saline was instilled through the catheter which returned easily on egress. Dressings were applied. The patient tolerated the procedure well. All instrument, sponge and needle counts were correct at the end of the case. There were no complications. Dr. Bunch was present for and directed the entire case. The patient was transferred to the recovery room in stable condition.
== END 2018-09-25 11:15 | disposition home or self-care (01) | DRG 951 ==
LOC: M ED 12:58 → M ED INP 15:16 → M PCU 19:09 → M MSPAV 09-13 13:00 → M ICU 09-18 09:03 → M MSPAV 09-19 18:45
PROVIDERS: ADMIT Internal Medicine; ATTEND Internal Medicine
PROC: 3E1M39Z Irrigation of Peritoneal Cavity using Dialysate, Percutaneous Approach (ICD-10-PCS; principal; 2018-09-11)
PROC: 0DB58ZX Excision of Esophagus, Via Natural or Artificial Opening Endoscopic, Diagnostic (ICD-10-PCS; 2018-09-13)
PROC: 0WPG43Z Removal of Infusion Device from Peritoneal Cavity, Percutaneous Endoscopic Approach (ICD-10-PCS; 2018-09-16)
PROC: 0WHG43Z Insertion of Infusion Device into Peritoneal Cavity, Percutaneous Endoscopic Approach (ICD-10-PCS; 2018-09-16)
PROC: 30233N1 Transfusion of Nonautologous Red Blood Cells into Peripheral Vein, Percutaneous Approach (ICD-10-PCS; 2018-09-17)
DX: T85.71XA Infection and inflammatory reaction due to peritoneal dialysis catheter, initial encounter (principal); I13.2 Hypertensive heart and chronic kidney disease with heart failure and with stage 5 chronic kidney disease, or end stage renal disease; N18.6 End stage renal disease; E11.22 Type 2 diabetes mellitus with diabetic chronic kidney disease; E11.42 Type 2 diabetes mellitus with diabetic polyneuropathy; D69.6 Thrombocytopenia, unspecified; N25.81 Secondary hyperparathyroidism of renal origin; I50.22 Chronic systolic (congestive) heart failure; E11.51 Type 2 diabetes mellitus with diabetic peripheral angiopathy without gangrene; E03.9 Hypothyroidism, unspecified; D63.1 Anemia in chronic kidney disease; E11.319 Type 2 diabetes mellitus with unspecified diabetic retinopathy without macular edema; E78.5 Hyperlipidemia, unspecified; R13.10 Dysphagia, unspecified; K22.10 Ulcer of esophagus without bleeding; T85.611A Breakdown (mechanical) of intraperitoneal dialysis catheter, initial encounter; Y83.1 Surgical operation with implant of artificial internal device as the cause of abnormal reaction of the patient, or of later complication, without mention of misadventure at the time of the procedure; Z99.2 Dependence on renal dialysis; Z87.891 Personal history of nicotine dependence; Z79.4 Long term (current) use of insulin; Z79.899 Other long term (current) drug therapy; Z88.0 Allergy status to penicillin

== ENCOUNTER 2018-12-17 04:38 | Inpatient (IN) | payer OTHER ==
[~2018-12-17] VITALS: Ht 160 cm; Wt 67.0 kg
[2018-12-17] VITALS (7 sets, daily range): BP systolic 145–188; BP diastolic 60–88
[~2018-12-17 04:38] MED LIST changes: +CALC1CAP31 PO; +DRIS50003 PO; +GENT1OI TOP; +LEVO75TA4 PO; +LINE1TAB PO; +LIQULIQ6 PO; +LISI10TA4 PO; +METO1TAB87 PO; +MIRC75IN SC; +OMEP-218 PO; +SLOWTAB2 PO; +SUCR1TA PO
[2018-12-17] MEDS ORDERED: MORPHINE 4 MG/ML 1ML VIAL/SYRINGE (J2270) IV PRN (06:30)
[2018-12-17] MEDS ORDERED: LEVO100T5 PO (07:25)
[2018-12-17] MEDS ORDERED: MIRC100I INJ (07:25)
[2018-12-17] MEDS ORDERED: OMEP-221 PO (07:25)
[2018-12-17] MEDS ORDERED: LISI10TA4 PO (07:25)
[2018-12-17] MEDS: HumaLOG INSULIN (NovoLOG) PER UNIT SC SCH ×4 (07:30→20:24)
[2018-12-17] MEDS ORDERED: GLUCOSE 4 GM CHEW TABLET PO PRN (07:45)
[2018-12-17] MEDS ORDERED: DEXTROSE 50% 50 ML SYRINGE IV PRN (07:45)
[2018-12-17] MEDS ORDERED: GLUCAGON FOR INJ 1 MG VIAL (J1610) SC PRN (07:45)
[2018-12-17] MEDS ORDERED: ONDANSETRON 4MG/2ML VIAL (J2405) IV PRN (08:00)
[2018-12-17] MEDS: METOPROLOL TART 25 MG TABLET PO SCH ×2 (08:38→20:24)
[2018-12-17] MEDS: ISOSORBIDE MON. (IMDUR) 30 MG XR TAB PO SCH (08:38)
[2018-12-17] MEDS: PANTOPRAZOLE 40MG INJ (PROTONIX) (C9113) IV SCH ×2 (08:39→20:23)
--- NOTE | 2018-12-17 09:32 | HPE ---
DATE OF ADMISSION: 12/17/2018 PRIMARY CARE PROVIDER: Unknown. CHIEF COMPLAINT: Nausea and vomiting. HISTORY OF PRESENTING ILLNESS: The patient is a 48-year-old female with a history of end-stage renal disease who presents with a 1-day history of nausea, vomiting, and diarrhea. The patient presented to [facility] yesterday after waking up and vomiting more than twenty times. The patient says she did have one episode of vomiting that had bright red blood. The rest of the vomitus had yellow fluid in it with what she ate the night before. The patient says the night before, she had a chicken sandwich with jolly and pickles on it, which is not out of the ordinary. She denies having any other sick contacts around her. The patient says she did have a couple episodes of watery loose green stool without any evidence of blood. The patient is complaining of some right upper quadrant abdominal pain right now that has been constant. The patient does have a history of dialysis, both hemodialysis and peritoneal dialysis. The patient says that she was hooked up to her peritoneal dialysis machine yesterday but was unable to continue with the full treatment, as she was having too much pain in her abdomen to continue. Since arriving at our hospital, the patient has not had any episodes of vomiting nor has had any episodes of diarrhea. However, she is still complaining of right upper quadrant abdominal pain. PAST MEDICAL HISTORY: End-stage renal disease, on peritoneal dialysis. Type 2 diabetes mellitus. Hypertension. Hyperlipidemia. Heart failure with reduced ejection fraction. A pericardial effusion back in 2016. Peripheral vascular disease. A history of anemia. Hypothyroidism. Diabetic neuropathy and retinopathy. PAST SURGICAL HISTORY: Cardiac catheterization with a stent placed. Hysterectomy. A chest tube placement when she had her pericardial effusion in 2016. Prior (C) section. Tubal ligation. AV fistula in the right arm, which caused steal syndrome, and was reversed. She also has an AV fistula in her leg. Kidney and liver biopsies. ALLERGIES: PENICILLINS. MEDICATIONS: - metoprolol 25 mg daily - sevelamer 800 mg - iron - vitamin D 50,000 units every Sunday - pantoprazole 40 mg twice a day - isosorbide mononitrate 30 mg daily - Synthroid 75 mcg daily - lisinopril 10 mg daily - calcitriol - Basaglar 20 units daily FAMILY HISTORY: The patient says there is an extensive history of diabetes in her family, including both of her parents and her siblings. SOCIAL HISTORY: The patient was a pack-a-day smoker for greater than 30 years, who quit about 9 months ago. The patient denies any alcohol use or illicit drug use. The patient says she lives at home with her son, and currently her sister is staying with her as she prepares to move. 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 REVIEW OF SYSTEMS: Constitutional: The patient denies fevers, chills, and unintentional weight loss. The patient was sweating yesterday but not at night. HEENT: The patient endorses blurry vision which is chronic but denies headaches, sore throat, or runny nose. Cardiovascular: The patient denies any chest pain or palpitations. Respiratory: The patient denies any shortness of breath or cough. Abdomen: The patient has abdominal pain in the right upper quadrant, nausea, vomiting, diarrhea described above in history of present illness (HPI). Genitourinary (): The patient does make a small amount of urine but does not complain of any pain or blood in her urine. Lymphatics: The patient denies any lumps or bumps in her neck, axillae, or groin. Neurological: The patient endorses numbness and tingling in her feet and ankles but denies any anywhere else. Extremities: The patient denies any pain of swelling in her extremities. Skin: The patient denies any rashes or lesions on her skin. Hematologic: The patient does endorse some easy bruising. PHYSICAL EXAMINATION: Vital signs: Temperature 98.2, pulse 80, respiratory rate 18, blood pressure 168/68, pulse oximetry 94% on room air. General: The patient is an alert and oriented female patient who is laying in bed. The patient was able to answer my questions without difficulty. However, would occasionally grimace in pain when she was having episodes of abdominal pain. Other than those episodes of grimacing, the patient was in no acute distress. The patient appeared to be in mild distress when she was having the episodes of pain. HEENT: Normocephalic, atraumatic with anicteric sclerae. The patient did have moist mucous membranes. Neck: Was supple with no lymphadenopathy palpated. Cardiovascular: Was a regular rate and rhythm with a normal S1 and normal S2. I did not auscultate any murmurs. Respiratory: Was clear to auscultation bilaterally. Abdomen: Was soft. There was tenderness greatest at the right upper quadrant. The patient ceased respiratory effort with pressure underneath the diaphragm in the right upper quadrant. There was mild tenderness in the other quadrants to palpation. However, this was felt most in the right upper quadrant. There was no rebound tenderness. The peritoneal dialysis port was clean, dry, and there was no surrounding erythema. Extremities: There was trace pitting edema to the level of the midshin on the bilateral lower extremities. Dorsalis pedis and radial pulses were equal bilaterally. Neurological: The patient was able to move her arms and legs independently. The patient had 5/5 general forecaster strength. The patient did report some decreased sensation to light touch in her feet bilaterally. However, this is chronic. Skin: The skin of the abdomen, head, neck, arms, legs, and back was examined and did not show any evidence of rash. LABORATORIES: Laboratories in our hospital are pending. Laboratories from [facility] via report show white blood cells of 14.6, hemoglobin 10.9, an elevated D-dimer, glucose greater than 300, BNP 35,000, a lipase of 87. ASSESSMENT AND PLAN: The patient is a 48-year-old female who presents to the hospital with nausea, vomiting, diarrhea, and abdominal pain which could be secondary to cholecystitis. Pancreatitis is less likely, as the patient had a normal lipase. However, we will continue to do a workup. 1. Nausea, vomiting, and diarrhea. At this time, the patient will be given Zofran. The patient gave a report of vomiting bright red blood. We will continue to monitor the patient's hemoglobin and hematocrit for any changes or will continue to monitor the patient if she hematemesis or drop in blood count. If so, we may have to transfuse the patient. We will order a type and cross. 2. Right upper quadrant abdominal pain. A right upper quadrant ultrasound has been ordered to evaluate for possible cholecystitis. At this time, this is possible. However, we will need to get further imaging studies. 3. End-stage renal disease. I will talk to Dr. Mcdaniel of nephrology, who has been consulted, for him to decide whether or not the patient needs peritoneal of hemodialysis. The peritoneal dialysis cath site does not appear to be infected at this time. However, we will continue to monitor. 4. Type 2 diabetes mellitus. The patient is on sliding scale insulin at this time. 5. Hypertension. We will continue with the patient's home medications of metoprolol and isosorbide mononitrate. I had held the patient's lisinopril due to the patient's end-stage renal disease. 6. Heart failure with reduced ejection fraction. We will continue with the patient's metoprolol 25 mg. 7. Hypothyroidism. We will continue with the patient's Synthroid at 75 mcg. 8. Anemia. This could be chronic due to anemia of end-stage renal disease. However, we will continue to monitor for acute blood loss anemia if the patient does, in fact, have a gastrointestinal (GI) bleed. 9. Deep venous thrombosis (DVT) prophylaxis. We will do thromboembolic deterrents (TEDs) and sequentials, as if there is a possibility for a GI bleed, I do not want to use anticoagulation at this time. PLAN: We will admit the patient to the progressive care unit, where the patient is currently located. We will contact nephrology for further management for dialysis, and we will continue workup of the patient's nausea, vomiting, and diarrhea. If the patient does have cholecystitis, a surgical consult will be placed; or if the patient is found to have a GI bleed, we will contact gastroenterology. The patient will be a FULL CODE. I performed a history and physical examination of the patient and discussed their management with the above documenter. I reviewed the note and agree with the documented findings and plan of care. LESVIA
[2018-12-17 09:43] LABS: BASO # 0.1 10^3/uL (0.0-0.2); BASO % 0.8 % (0.0-1.0); EOS % 0.1 % (0.0-3.0); LYMPH # 0.8 10^3/uL (1.5-5.0); LYMPH % 8.5 % (24.0-44.0); MONO # 0.5 10^3/uL (0.0-0.8); MONO % 5.5 % (0.0-5.0); NEUTROPHILS # 8.3 10^3/uL (1.5-8.5); NEUTROPHILS % 84.8 % (36.0-66.0); WHITE BLOOD COUNT 9.8 10^3/uL (4.0-10.0)
[2018-12-17 09:53] LABS: INR 1.05; PARTIAL THROMBOPLASTIN TIME 22.2 SECONDS (25.0-38.4); PROTHROMBIN TIME 13.4 SECONDS (11.8-14.0)
[2018-12-17 10:15] LABS: ALBUMIN 2.7 GM/DL (3.2-5.2); BILIRUBIN,TOTAL 0.9 MG/DL (0.2-1.0); CALCIUM LEVEL 8.5 MG/DL (8.5-10.1); CREATININE FOR GFR 14.6 MG/DL (0.55-1.30); GLOMERULAR FILTRATION RATE 2.9 (>58); POTASSIUM SERUM 5.5 MEQ/L (3.5-5.1); TOTAL PROTEIN 6.3 GM/DL (6.4-8.2)
--- NOTE | 2018-12-17 10:20 | REP ---
Clinical: Right upper quadrant pain. Technique: Real time garcia scale ultrasound examination using curved array transducer. Findings: Liver and visualized pancreas are normal in appearance and without focal hepatic or pancreatic lesion identified. Gallbladder demonstrates few small gallstones up to approximately 8 mm without significant wall thickening or pericholecystic fluid. No biliary ductal dilatation is appreciated and the common bile duct measures 5 mm diameter. Right kidney is normal in reniform shape without hydronephrosis and measures 9.5 x 4.2 x 3.4 cm including 1.8 cm upper pole cyst. No ascites. Incidental moderate right pleural effusion noted. Impression: 1. Cholelithiasis without sonographic evidence for acute cholecystitis. 2. 1.8 cm simple right renal cyst. 3. Moderate right pleural effusion identified. Electronically Signed by Bin Liang MD 12/17/2018 10:11 A
[2018-12-17 12:21] LABS: HEMATOCRIT 29.6 % (36.0-47.0); HEMOGLOBIN 9.3 g/dl (12.0-15.5); MEAN CORPUSCULAR HEMOGLOBIN 30.6 pg (27.0-33.0); MEAN CORPUSCULAR HGB CONC 31.4 g/dl (32.0-36.5); MEAN CORPUSCULAR VOLUME 97.4 fl (80.0-96.0); PLATELET COUNT, AUTOMATED 164 10^3/uL (150-450); RED BLOOD COUNT 3.04 10^6/uL (4.00-5.40)
[2018-12-17] MEDS: ONDANSETRON 4MG/2ML VIAL (J2405) IV PRN (12:43)
[2018-12-17 14:32] LABS: APPEARANCE, BODY FLUID CLEAR (CLEAR); PERITONEAL DIALYSATE FL COLOR PALE YELLOW (COLORLESS); SOURCE, BODY FLUID PERITONEAL DIALYSATE
[2018-12-17] MEDS ORDERED: ACETAMINOPHEN TAB 650MG DOSE (2X325MG) PO PRN (15:30)
[2018-12-17] MEDS ORDERED: LEVEMIR (INSULIN DETEMIR) 1 UNITS/0.01ML SC SCH (21:00)
[2018-12-17] MEDS ORDERED: GENTAMICIN SULF INJ 80MG/2ML VIAL (J1580) IP ONE (21:45)
[2018-12-17] MEDS ORDERED: VANCOMYCIN 750 MG/25 ML VIAL (J3370) XX ONE (21:45)
[2018-12-17] MEDS: GENTAMICIN SULFATE 0.1% OINT 15 GM TOP SCH (22:22)
--- NOTE | 2018-12-17 23:24 | CR ---
DATE OF CONSULTATION: 12/17/2018 REQUESTING PHYSICIAN: Dr. Carol Dorsey CONSULTING PHYSICIAN: Dr. Darcie Mcdaniel REASON FOR CONSULTATION: Management of end-stage renal disease, peritoneal dialysis and possible peritonitis. CHIEF COMPLAINT: The patient presented to the emergency room last night with nausea, vomiting and abdominal pain. HISTORY OF THE PRESENT ILLNESS: Subha Trivedi is a 48-year-old female with a past medical history of end-stage renal disease, currently on peritoneal dialysis, history of hemodialysis in the past with a functional right thigh arteriovenous (AV) graft, well known to nephrology service from multiple previous hospitalizations and from outpatient dialysis center. She presented to the hospital yesterday with a 1-day history of nausea, vomiting, decreased appetite, chills but no fever, right upper quadrant pain. The patient reports that she was unable to keep anything down. She also reported one episode of vomiting bright red blood. She also reports loose watery stools when she presented to the hospital. She was admitted under the hospitalist service. She was given gentle fluid hydration. Ultrasound of the right upper quadrant was ordered to rule out acute cholecystitis. Nephrology service was called for further help in the management of this patient with end-stage renal disease and management of peritoneal dialysis. The patient had a complicated and prolonged hospital stay in September 2018 with almost similar symptoms. At that time, she had been right upper quadrant of the abdomen. She had malfunctioning of the peritoneal dialysis (PD) catheter. PD catheter was revised and for some time she needed to be on hemodialysis as well. Postop course was complicated by hemoperitoneum as well. However, since that time she is tolerating the peritoneal dialysis. PAST MEDICAL HISTORY: History of end-stage renal disease - on peritoneal dialysis, previous history of hemodialysis, diabetes mellitus type 2, hypertension, hyperlipidemia, heart failure with reduced ejection fraction, peripheral vascular disease, anemia in end-stage renal disease, hypothyroidism, diabetic neuropathy, history of peritonitis in the past. PAST SURGICAL HISTORY: Status post cardiac catheterization and stent placement, history of hysterectomy, status post chest tube placement because of pericardial effusion 2015, tubal ligation, history of AV fistula in the right arm in the past, and she has a functioning right thigh AV graft as well. She had kidney and liver biopsy. Revision of peritoneal dialysis catheter in September 2018 ALLERGIES: The patient is allergic to PENICILLIN. FAMILY HISTORY: Positive family history of diabetes in the family. SOCIAL HISTORY: The patient is a former smoker. She quit about 9 months ago. She denies any illicit drug abuse or alcohol abuse. She lives at home. REVIEW OF SYSTEMS: Constitutional: Patient reports chills, but she denies any fevers. Eyes: She denies any blurry vision, double vision. ENT: She denies any dysphagia or odynophagia. Cardiovascular: She denies any chest pain or palpitation. Respiratory: She denies any shortness of breath. Gastrointestinal (GI): She reports nausea, vomiting and diarrhea and decreased appetite and right upper quadrant pain. Genitourinary: She denies any dysuria or hematuria. Musculoskeletal: She denies any muscle aches and pains. Skin: She denies any rashes or ulcers. Central nervous system (RESIDENTIAL INSURANCE INSPECTOR) She denies any weakness. Hematological/Oncological: No easy bleeding or bruising. PHYSICAL EXAMINATION: General: The patient is awake, alert, oriented times three, laying in bed, mild painful distress. Vital signs: Temperature is 99.2 degrees Fahrenheit, blood pressure 188/84, pulse is 76, respiratory of 18, saturating 95% on room air. Head and neck exam: Extraocular muscles intact. Pupils equally round and reactive to light. Mucous membranes are moist. Tongue is pale. Neck is supple. There is no jugular venous distention (JVD). Cardiovascular: S1, S2, regular rate. No edema of the bilateral lower extremities. Respiratory: Chest is clear to auscultation bilaterally. Bilateral equal air entry. No rales or rhonchi. Abdomen: Soft. Positive bowel sounds. A moderate amount of tenderness on deep palpation in the right upper quadrant. Musculoskeletal: No clubbing or cyanosis. Right thigh AV graft is palpable with a thrill and bruit. RESIDENTIAL INSURANCE INSPECTOR: No focal deficit. Power is 5/5 in all extremities. Skin: No rashes or ulcers. LAB REVIEW: CBC showed a WBC of 9.8, hemoglobin 9.3, platelets are 164, INR is 1.05. Peritoneal fluid cell count is 1219 with 91% polymorphonuclears, glucose is 169. BMP showed sodium 139, potassium 5.5, chloride 107, bicarbonate 22, BUN 86, creatinine is 14.6, calcium 8.5, albumin is 2.7. Microbiology: Peritoneal fluid gram stain showed few WBCs, no organism was seen. IMAGING: Ultrasound of the abdomen was done, which showed cholelithiasis without sonographic evidence of acute cholecystitis. CURRENT INPATIENT MEDICATIONS: The patient's medications include Tylenol as needed. I have ordered a dose of intraperitoneal gentamicin 80 mg along with vancomycin 1.5 grams. She is on topical gentamicin at the catheter site. She is on insulin 20 units subcu nightly insulin sliding scale, isosorbide 30 mg by mouth daily, metoprolol 25 mg by mouth twice a day, Zofran as needed, Protonix 40 mg IV every 12 hours. ASSESSMENT: 48-year-old female with end-stage renal disease on peritoneal dialysis, insulin-dependent diabetic, chronic systolic congestive heart failure, hypothyroidism, admitted at this time with acute peritonitis. PLAN: 1. Acute peritonitis. The patient has pain right upper quadrant abdomen, elevated peritoneal fluid cell count, more than 90% polymorphonuclears. Culture is still pending. She is being empirically started on intraperitoneal vancomycin 1.5 grams every 5 days and intraperitoneal gentamicin, loading dose 80 mg intraperitoneal to be given today. Right upper quadrant ultrasound was done, which did not show any evidence of acute cholecystitis. 2. End-stage renal disease, on peritoneal dialysis. The patient will be started on peritoneal dialysis, five manual exchanges a day, all 2 liters with a combination of 1.5% and 2.5%. 3. Hypothyroidism. Continue home dose of levothyroxine 100 mcg by mouth daily. 4. Hypertension with end-stage renal disease. Continue home dose of isosorbide 30 mg by mouth daily, metoprolol 25 mg by mouth twice a day and lisinopril 10 mg by mouth daily. If hyperkalemia persists, then lisinopril will be replaced with hydralazine. 5. Secondary hyperparathyroidism. I am going to start the patient on calcitriol 0.25 mcg every Sunday, Sunday, Sunday and reconfirmed her home dose of calcitriol from the dialysis center. 6. Chronic kidney disease mineral bone disease. Patient takes Renvela 2.4 grams by mouth three times a day with meals. Because of nausea, vomiting and diarrhea, I am going to hold Renvela at this time. I will restart it once the patient starts tolerating oral diet. 7. Anemia in end-stage renal disease. Hemoglobin is 9.3, which is slightly suboptimal. I am going to check the iron levels and give the patient a dose of Aranesp as well. 8. Diabetes mellitus, type 2, insulin dependent. Continue home dose of insulin sliding scale and long-acting insulin. Thank you for involving me in the care of this patient. I shall be happy to follow the patient along with you tomorrow morning.
[2018-12-18 04:00] VITALS: BP 149/67
[2018-12-18] MEDS: LEVOTHYROXINE 100MCG TABLET (0.1MG) PO SCH (05:27)
[2018-12-18] MEDS: ONDANSETRON 4MG/2ML VIAL (J2405) IV PRN ×2 (05:29→17:25)
[2018-12-18 05:32] LABS: BASO # 0.1 10^3/uL (0.0-0.2); BASO % 0.9 % (0.0-1.0); EOS # 0.1 10^3/uL (0.0-0.5); EOS % 1.4 % (0.0-3.0); HEMATOCRIT 28.1 % (36.0-47.0); HEMOGLOBIN 8.6 g/dl (12.0-15.5); LYMPH # 1.2 10^3/uL (1.5-5.0); LYMPH % 13.7 % (24.0-44.0); MEAN CORPUSCULAR HGB CONC 30.6 g/dl (32.0-36.5); MEAN CORPUSCULAR VOLUME 97.9 fl (80.0-96.0); MONO # 0.7 10^3/uL (0.0-0.8); MONO % 7.7 % (0.0-5.0); NEUTROPHILS # 6.7 10^3/uL (1.5-8.5); NEUTROPHILS % 75.8 % (36.0-66.0); PLATELET COUNT, AUTOMATED 164 10^3/uL (150-450); RED BLOOD COUNT 2.87 10^6/uL (4.00-5.40); WHITE BLOOD COUNT 8.8 10^3/uL (4.0-10.0)
[2018-12-18] MEDS: SLF 3 ML SYR IV SCH ×3 (06:00→21:01)
[2018-12-18 06:01] LABS: ALBUMIN 2.4 GM/DL (3.2-5.2); BILIRUBIN,DIRECT 0.3 MG/DL (0.0-0.2); BILIRUBIN,TOTAL 0.8 MG/DL (0.2-1.0); CALCIUM LEVEL 8.2 MG/DL (8.5-10.1); CREATININE FOR GFR 13.8 MG/DL (0.55-1.30); GLOMERULAR FILTRATION RATE 3.1 (>58); PERCENT SATURATION 40.1 % (13.2-45.0); POTASSIUM SERUM 4.7 MEQ/L (3.5-5.1); TOTAL PROTEIN 5.1 GM/DL (6.4-8.2)
[2018-12-18] MEDS: HumaLOG INSULIN (NovoLOG) PER UNIT SC SCH ×4 (07:30→20:51)
[2018-12-18 07:49] VITALS: BP 160/70
[2018-12-18 08:10] LABS: APPEARANCE, BODY FLUID CLEAR (CLEAR); PERITONEAL DIALYSATE FL COLOR COLORLESS (COLORLESS); SOURCE, BODY FLUID PERITONEAL DIALYSATE
[2018-12-18] MEDS: PANTOPRAZOLE 40MG INJ (PROTONIX) (C9113) IV SCH ×2 (08:42→20:58)
[2018-12-18] MEDS: METOPROLOL TART 25 MG TABLET PO SCH ×2 (08:43→21:00)
[2018-12-18] MEDS: LISINOPRIL 10 MG TAB PO SCH (08:43)
[2018-12-18] MEDS: ISOSORBIDE MON. (IMDUR) 30 MG XR TAB PO SCH (08:43)
[2018-12-18] MEDS ORDERED: CALCITRIOL 0.25 MCG CAP (S0169) PO SCH (09:00)
[2018-12-18] MEDS ORDERED: SLF 3 ML SYR IV PRN (09:00)
[2018-12-18] MEDS ORDERED: DARBEPOETIN 100 MCG/0.5 ML *NON-DIALYSIS* SYRINGE (J0881) SC SCH (09:30)
--- NOTE | 2018-12-18 11:23 | IPNPDOC ---
Text Note Date of Service The patient was seen on 12/18/18. NOTE Subjective: Patient says she is feeling much better this morning. Patient received intraperitoneal antibiotic treatment with vancomycin and gentamicin yesterday. Patient had two rounds of present hemodialysis yesterday. Patient has been able to eat and drink. Patient did have 2 episodes of loose stools this morning after receiving oral glucose for a low sugar. Patient's Levemir was changed to 10 units from 20. Patient has had no episodes of vomiting since being in the hospital. There were no acute events overnight. Review of systems General: Patient denies fevers HEENT: Patient denies headaches Cardiovascular: Patient denies chest pain Respiratory: Patient denies shortness of breath, cough GI: Patient had 2 episodes of diarrhea but has not had any vomiting. Patient says her abdominal pain is improving. : Patient denies pain or difficulty with urination Neurological: Patient denies numbness or tingling in extremities Extremities: Patient denies swelling or pain in extremities Objective: Vitals: (see below) General: No acute distress, laying comfortably in bed. HEENT: Normocephalic, atraumatic, moist mucous membranes. Neck: No JVD or lymphadenopathy Cardiac: RRR, No murmurs Pulm: Clear to auscultation b/l. No wheezing, rhonchi Abd: Mild tenderness to palpation of the abdomen. The peritoneal dialysis port site is clean and dry with no erythema. Ext: No edema or cyanosis. Radial, posterior tibial, and dorsalis pedis pulses equal bilaterally. Labs (see below) Images: A right upper quadrant ultrasound performed on 12/17/2018 shows cholelithiasis without sonographic evidence for acute cholecystitis, 1.8 simple cyst in the right renal cortex. Moderate right pleural effusion identified. Assessment/Plan 1. Spontaneous bacterial peritonitis. The initial peritoneal sampling showed 1219 white blood cells with a polymorphic neutrophil count of 91.6%. This meets criteria for spontaneous bacterial peritonitis. Patient was given 1 dose of vancomycin and gentamicin via the peritoneal dialysis catheter by nephrology. The patient is much improved today. The new sample of the peritoneal fluid shows 21 white blood cells. Nephrology will continue the treatment with gentamicin daily and vancomycin every 5-7 days for 2-3 weeks. I did speak with Dr. Mcdaniel, of nephrology who says it is most likely not necessary to change her peritoneal dialysis port. This is the most likely reason for the patient's nausea vomiting and diarrhea as well as her right upper quadrant abdominal pain. 2. End stage renal disease. Nephrology is following the patient. Patient will continue with peritoneal dialysis as well as be treated for spontaneous bacterial peritonitis. We appreciate 's help in treating this patient. 3. Type 2 diabetes mellitus. Patient is on sliding scale. Her Levemir was decreased to 10 units due to a low sugar. 4. Hypertension. We will continue the patient's home medications. 5. Heart failure with reduced ejection fraction. We will continue with the patient's metoprolol 25 mg. Patient not a candidate for CHAD inhibitor/ARB therapy or spironolactone due to end-stage renal disease. 6. Hypothyroidism. We'll continue the patient's home Synthroid. 7. Anemia. This could be chronic due to end-stage renal disease however she was having a reported episode of hematemesis. We will continue to monitor with hemoglobin and hematocrit monitoring. So far her hemoglobin has dropped from 9.3-8.7 today. I reordered another H&H to reassess this. DVT prophy: Teds and sequentials Dispo: Pending clinical improvement. Possible discharge in 24-48 hours. I saw and evaluated the patient. I agree with the findings and plan of care as documented in the above note Regina BOWLES, I+O Regina BOWLES, I+O Laboratory Tests 12/18/18 05:08 Red Blood Count 2.87 L, Mean Corpuscular Volume 97.9 H, Mean Corpuscular He moglobin 30.0, Mean Corpuscular Hemoglobin Concent 30.6 L, Red Cell Distribution Width 14.7 H, Neutrophils (%) (Auto) 75.8 H, Lymphocytes (%) (Auto) 13.7 L, Monocytes (%) (Auto) 7.7 H, Eosinophils (%) (Auto) 1.4, Basophils (%) (Auto) 0.9, Neutrophils # (Auto) 6.7, Lymphocytes # (Auto) 1.2 L, Monocytes # (Auto) 0.7, Eosinophils # (Auto) 0.1, Basophils # (Auto) 0.1 Vital Signs Date Time Temp Pulse Resp B/P (MAP) Pulse Ox O2 Delivery O2 Flow Rate FiO2 12/18/18 08:43 160/68 12/18/18 07:49 98.2 68 18 95 I&O- Last 24 Hours up to 6 AM 12/18/18 05:59 Intake Total 5800 ml Output Total 4100 ml Balance 1700 ml MAKAYLA YE DO Dec 18, 2018 11:23 LINO LONG MD Dec 21, 2018 10:37
[2018-12-18 12:00] VITALS: BP 174/78
[2018-12-18 13:26] LABS: HEMATOCRIT 30.7 % (36.0-47.0); HEMOGLOBIN 9.4 g/dl (12.0-15.5)
--- NOTE | 2018-12-18 13:51 | IPN ---
DATE OF SERVICE: 12/18/2018 SUBJECTIVE: The patient was seen and examined the bedside today morning. The patient reports that her pain in abdomen is getting significantly better. She was found to have acute peritonitis and she was given a first dose of intraperitoneal vancomycin and gentamicin last night. The peritoneal fluid cell count is improving, however, the patient reports that she started having diarrhea again today. She is having loose stools. The GI panel done yesterday was negative for any infection. OBJECTIVE: Vital Signs: Temperature is 98.2 degrees Fahrenheit, blood pressure 160/70, pulse is 68, respiratory rate of 18, saturating 95% on room air. Intake and Output. There is no urine output recorded. The patient is having minimal ultrafiltration with peritoneal dialysis, only 100 mL of fluid is coming out with each exchange. Weight in the bed scale is 72.1 kg. PHYSICAL EXAMINATION: General: The patient is awake, alert, oriented times three, laying in bed in no apparent distress. Head and Neck Exam: Extraocular muscles intact. Pupils equally round and reactive to light. Mucous membranes are moist. Neck is supple. There is no jugular venous distention (JVD). Cardiovascular: S1 and S2, regular rate. No edema of the bilateral lower extremities. Respiratory: Chest is clear to auscultation bilaterally. Bilateral equal air entry. No rales or rhonchi. Abdomen: Soft. Positive bowel sounds. Mild amount of tenderness in the right upper quadrant. No rebound tenderness was noted. Musculoskeletal: No clubbing or cyanosis. Pulses are 2+. Right thigh AV graft has palpable thrill and bruit. TRANSPORT TECHNICIAN: No focal deficit. Power is 5/5 in all extremities. LAB REVIEW: CBC showed WBC 8.8, hemoglobin 8.6 and platelets are 164. Peritoneal fluid cell count has improved to 21 with 47% polymorphonuclear. BMP done today morning showed sodium 141, potassium 4.7, chloride 107, bicarb 25, BUN 74, creatinine 13.8, phosphorus 4, iron 71, transferrin saturation 40%, ferritin 487, and albumin is 2.4. Microbiology: GI panel PCR is negative. CURRENT INPATIENT MEDICATIONS: The patient's medications were all reviewed by me. I have changed the calcitriol dose to 0.5 mcg on Sunday, , Sunday and Sunday and 0.25 mcg on Sunday, Sunday and Sunday. I have started the patient on Aranesp 100 mcg subcu on Wednesdays. She was given intraperitoneal gentamicin and vancomycin. I have started her on gentamicin 40 mg intraperitoneally daily. Insulin Levemir dose has been decreased to 10 units subcu q.h.s. She has also been restarted on lisinopril 10 mg p.o. daily. No other change in the medications today as compared with yesterday. ASSESSMENT/PLAN: 1. Acute peritonitis. The patient was started on empiric vancomycin and gentamicin intraperitoneally. There is significant improvement in the peritoneal fluid cell count. Continue intraperitoneal gentamicin. Vancomycin will need to be redosed in about 5 days from today. Right upper quadrant abdominal pain is improving. 2. End-stage renal disease on peritoneal dialysis. Continue current PD regimen of five manual exchanges, all 2 liters, combination of 1.25% and 2.5%. 3. Hypertension with end-stage renal disease. Blood pressures are improving. Continue current dose of metoprolol, lisinopril and isosorbide. 4. Secondary hyperparathyroidism. I have restarted the home dose of calcitriol alternating with 0.25 mcg and 0.5 mcg as mentioned above. 5. Chronic kidney disease mineral bone disease. The patient is having nausea and diarrhea. Phosphorus binders are on hold at this time. 6. Anemia in end-stage renal disease. Iron levels are adequate. I have ordered a dose of Aranesp 100 mcg to be given today. 7. Diabetes mellitus type 2, insulin dependent. The patient was hypoglycemic. Her insulin dose has been decreased by the primary team. 8. Chronic systolic congestive heart failure. Volume status is optimal. If I see any signs of weight gain or fluid overload, I will change the peritoneal dialysate regimen to all 2.5% fluids.
[2018-12-18 14:50] VITALS: BP 177/78
--- NOTE | 2018-12-18 16:49 | REP ---
Clinical: Acute peritonitis. Technique: Single supine view of the abdomen and pelvis. Findings: Peritoneal dialysis catheter identified and normal in appearance. The bowel gas pattern is nonspecific. No organomegaly. No abnormal calcifications. Skeletal structures are intact. Impression: Nonspecific bowel gas pattern. Electronically Signed by Bin Liang MD 12/18/2018 04:41 P
[2018-12-18] MEDS: GENTAMICIN SULFATE 0.1% OINT 15 GM TOP SCH (21:00)
[2018-12-18] MEDS ORDERED: LEVEMIR (INSULIN DETEMIR) 1 UNITS/0.01ML SC SCH (21:00)
[2018-12-18] MEDS ORDERED: GENTAMICIN SULF INJ 80MG/2ML VIAL (J1580) IP SCH (21:30)
[2018-12-18 22:00] VITALS: BP 170/76
[2018-12-18 23:00] VITALS: BP 160/68
[2018-12-19] MEDS: LEVOTHYROXINE 100MCG TABLET (0.1MG) PO SCH (05:57)
[2018-12-19] MEDS: SLF 3 ML SYR IV SCH (05:57)
[2018-12-19 06:00] VITALS: BP 158/73
[2018-12-19 07:14] LABS: SOURCE, BODY FLUID PERITONEAL DIALYSATE
[2018-12-19 07:15] LABS: APPEARANCE, BODY FLUID CLEAR (CLEAR); PERITONEAL DIALYSATE FL COLOR COLORLESS (COLORLESS)
[2018-12-19 07:33] LABS: BASO # 0.1 10^3/uL (0.0-0.2); BASO % 1.3 % (0.0-1.0); EOS # 0.2 10^3/uL (0.0-0.5); HEMATOCRIT 28.7 % (36.0-47.0); HEMOGLOBIN 9.1 g/dl (12.0-15.5); LYMPH # 0.9 10^3/uL (1.5-5.0); LYMPH % 15.1 % (24.0-44.0); MEAN CORPUSCULAR HEMOGLOBIN 31.2 pg (27.0-33.0); MEAN CORPUSCULAR HGB CONC 31.7 g/dl (32.0-36.5); MEAN CORPUSCULAR VOLUME 98.3 fl (80.0-96.0); MONO # 0.6 10^3/uL (0.0-0.8); MONO % 9.5 % (0.0-5.0); NEUTROPHILS # 4.2 10^3/uL (1.5-8.5); NEUTROPHILS % 69.8 % (36.0-66.0); PLATELET COUNT, AUTOMATED 144 10^3/uL (150-450); RED BLOOD COUNT 2.92 10^6/uL (4.00-5.40)
[2018-12-19 07:59] LABS: CALCIUM LEVEL 8.4 MG/DL (8.5-10.1); CREATININE FOR GFR 12.3 MG/DL (0.55-1.30); GLOMERULAR FILTRATION RATE 3.5 (>58)
[2018-12-19] MEDS: PANTOPRAZOLE 40MG INJ (PROTONIX) (C9113) IV SCH (08:44)
[2018-12-19] MEDS: HumaLOG INSULIN (NovoLOG) PER UNIT SC SCH ×2 (08:44→11:36)
[2018-12-19 08:45] VITALS: BP 160/74
[2018-12-19] MEDS: LISINOPRIL 10 MG TAB PO SCH (08:45)
[2018-12-19] MEDS: ISOSORBIDE MON. (IMDUR) 30 MG XR TAB PO SCH (08:48)
[2018-12-19] MEDS: METOPROLOL TART 25 MG TABLET PO SCH (08:48)
[2018-12-19] MEDS ORDERED: CALCITRIOL 0.25 MCG CAP (S0169) PO SCH (09:00)
--- NOTE | 2018-12-19 13:36 | IPN ---
DATE OF SERVICE: 12/19/2018 SUBJECTIVE: The patient was seen and examined at the bedside today morning. The patient denies any more diarrhea. She reports her abdominal pain is significantly better. She denies any problems with the peritoneal dialysis. Peritoneal fluid white cell count is improving. OBJECTIVE: Vital signs: Temperature is 97.3 degrees Fahrenheit, blood pressure 160/74, pulse is 62, respiratory of 18, saturating 93% on room air. Intake and output: There is no urine output recorded. The patient is getting adequate ultrafiltration with daily peritoneal dialysis. Weight in the bed scale is 67 kg. PHYSICAL EXAMINATION: General: The patient is awake, alert, oriented times three, laying in bed, no apparent distress. Head and neck exam: Extraocular muscles intact. Pupils equally round and reactive to light. Mucous membranes are moist. Neck is supple. There is no jugular venous distention (JVD). Cardiovascular: S1, S2, regular rate. No edema of the bilateral lower extremities. Respiratory: Chest is clear to auscultation bilaterally. Bilateral equal air entry. No rales or rhonchi. Abdomen: Soft. Positive bowel sounds. Tenderness in the right upper quadrant is all improved now. Musculoskeletal: No clubbing or cyanosis. Pulses are 2+. Right thigh arteriovenous (AV) graft with thrill and bruit. MULTI OPERATION FORMING MACHINE SETTER: No focal deficit. Power is 5/5 in all extremities. LAB REVIEW: CBC showed a WBC of 6, hemoglobin 9.1, platelets are 144. Peritoneal fluid cell count is 16 and 18.7% of polymorphonuclears. BMP showed sodium 139, potassium 4, chloride 104, bicarb 26, BUN 61, creatinine is 12.3, calcium 8.4. IMAGING: An abdominal x-ray was done yesterday which showed satisfactory position of the peritoneal dialysis catheter in the pelvis. CURRENT INPATIENT MEDICATIONS: Patient's medications were all reviewed by me. She got second dose of intraperitoneal gentamicin yesterday, is due for another dose today. ASSESSMENT AND PLAN: 1. Acute peritonitis secondary to peritoneal dialysis catheter. The patient is currently empirically on vancomycin and gentamicin. Cultures are negative so far. However, she is clinically improving and peritoneal fluid cell count is getting better. She will need 2 weeks of vancomycin and gentamicin. I have discussed this with the peritoneal dialysis center. The patient will need to stop at the peritoneal dialysis center before going home, and she will get the supplies of gentamicin for home, while vancomycin will be given in center. 2. End-stage renal disease on peritoneal dialysis. No issues with the peritoneal catheter function, and she is getting good dialysis. Continue the home regimen when the patient goes home. She uses a cycler. 3. Hypertension. Continue current dose of lisinopril, metoprolol, and isosorbide. 4. Anemia in end-stage renal disease. The patient was given a dose of Aranesp. Rest of the anemia management will be done as outpatient. 5. Chronic systolic congestive heart failure. Volume status is optimal. Continue combination of 1.5 and 2.5% fluids at home. 6. Disposition. Patient is of okay to be discharged home. She needs to get another dose of vancomycin intraperitoneal 2 grams as outpatient on Sunday and then another dose in about 5-7 days after that. Continue intraperitoneal gentamicin 40 mg daily for 2 weeks.
--- NOTE | 2018-12-19 14:39 | DS.PDOC ---
Discharge Summary General Date of Admission Dec 17, 2018 at 06:15 Date of Discharge 12/19/18 Attending Physician: LINO LONG MD Specialist/Consultants Involve: HOLLY MCDANIEL MD Discharge Summary PROCEDURES PERFORMED DURING STAY: None. ADMITTING/DISCHARGE DIAGNOSES: 1. Spontaneous bacterial peritonitis 2. End-stage renal disease on peritoneal dialysis 3. Type 2 diabetes mellitus 4. Hypertension 5. Heart failure with reduced ejection fraction 6. Hypothyroidism 7. Anemia. COMPLICATIONS/CHIEF COMPLAINT: Nausea, vomiting, diarrhea, and abdominal pain HISTORY OF PRESENT ILLNESS/HOSPITAL COURSE: Patient is a 48-year-old female who presented as a transfer from [facility]. Patient initially was complaining of nausea, vomiting, diarrhea, and abdominal pain. Her abdominal pain was located mostly in the right upper quadrant. Patient says she had over 20 episodes of vomiting which did include a bright red vomitus. Patient denied any bloody or dark tarry diarrhea. Patient has end-stage renal disease and was getting peritoneal dialysis. Patient says she was unable to finish her last peritoneal dialysis the day prior because she felt so ill. Patient then presented to the hospital and was transferred to our institution because of issues with his peritoneal dialysis. While in the hospital a right upper quadrant ultrasound was ordered not show any evidence of cholecystitis. Patient's peritoneal fluid was sampled and did show a white blood cell count greater than 1100 with greater than 90% polymorphic neutrophils. This led to the diagnosis of spontaneous bacterial peritonitis. Nephrology was consulted due to the patient having end-stage renal disease. Dr. Mcdaniel started treating the patient with 2 g of vancomycin and 40 mg of gentamicin via her peritoneal dialysis port. Patient improved very quickly and the next day was feeling bett er. Patient did have an episode late in Hospital course day 2 of abdominal pain requiring Zofran and morphine. On hospital course day 3 patient was feeling much better and without eat and drink without any difficulty. Patient's hemoglobin and hematocrit remained stable throughout her hospitalization. Patient was deemed ready for discharge and was discharged home. Patient was instructed to stop by the peritoneal dialysis center on her way home for further instruction and to get the antibiotics that she needs. DISCHARGE MEDICATIONS: Please see below. ALLERGIES: Please see below. PHYSICAL EXAMINATION ON DISCHARGE: Vitals: (see below) General: No acute distress, laying comfortably in bed. HEENT: Moist mucous membranes. Neck: No JVD or lymphadenopathy Cardiac: RRR, No murmurs Pulm: Clear to auscultation b/l. No wheezing, rhonchi Abd: NT/ND + BS, peritoneal dialysis catheter site showed no evidence of erythema and was clean and dry. Ext: No edema or cyanosis LABORATORY DATA: Please see below. IMAGING: A right upper quadrant ultrasound was performed on 12/17/2018 which showed cholelithiasis without sonographic evidence of acute cholecystitis, 1.8 cm simple right renal cyst, moderate right pleural effusion identified. An abdominal flat plate x-ray performed on 12/18/2018 showed nonspecific bowel gas pattern. PROGNOSIS: Fair ACTIVITY: As tolerated. DIET: Renal DISCHARGE PLAN/DISPOSITION: Discharge home DISCHARGE INSTRUCTIONS: 1. Stop by the peritoneal dialysis Center on your way home in order to get training for antibiotic administration and to pickup driver the antibiotics. 2. Use gentamicin 40 mg daily through the peritoneal dialysis catheter for 2 weeks and vancomycin 2 g through the peritoneal dialysis catheter on 12/23/2018 and then again 5-7 days later. 3. Follow-up with nephrology. 4. Follow-up with primary care provider within 5-10 days. 5. Return to the emergency room if symptoms worsen. DISCHARGE CONDITION: Stable. I saw and evaluated the patient. I agree with the findings and plan of care as documented in the documenters note. I spent 45 minutes coordinating this patient's discharge. Vital Signs/I&Os Vital Signs Date Time Temp Pulse Resp B/P (MAP) Pulse Ox O2 Delivery O2 Flow Rate FiO2 12/19/18 08:45 160/74 12/19/18 06:00 97.3 62 18 93 I&O- Last 24 Hours up to 6 AM 12/19/18 06:00 Intake Total 8590 ml Output Total 8500 ml Balance 90 ml Laboratory Data Labs 24H Laboratory Tests 2 12/18/18 16:38: Bedside Glucose (Misc Panel) 104 12/18/18 20:26: Bedside Glucose (Misc Panel) 113H 12/19/18 01:14: Bedside Glucose (Misc Panel) 178H 12/19/18 06:34: Body Fluid Source PERITONEAL DIALYSATE, Body Fluid WBC (Auto) 16H, Body Fluid RBC (Auto) < 2, Body Fluid Mononuclear Cells % Auto 81.3H, Fluid Polymorphonuclear Cell % Auto 18.7H, Peritoneal Fluid Color COLORLESS, Peritoneal Fluid Appearance CLEAR 12/19/18 07:20: Immature Granulocyte % (Auto) 0.3, White Blood Count 6.0, Red Blood Count 2.92L, Hemoglobin 9.1L, Hematocrit 28.7L, Mean Corpuscular Volume 98.3H, Mean Corpuscular Hemoglobin 31.2, Mean Corpuscular Hemoglobin Concent 31.7L, Red Cell Distribution Width 14.6H, Platelet Count 144L, Neutrophils (%) (Auto) 69.8H, Lymphocytes (%) (Auto) 15.1L, Monocytes (%) (Auto) 9.5H, Eosinophils (%) (Auto) 4.0H, Basophils (%) (Auto) 1.3H, Neutrophils # (Auto) 4.2, Lymphocytes # (Auto) 0.9L, Monocytes # (Auto) 0.6, Eosinophils # (Auto) 0.2, Basophils # (Auto) 0.1, Nucleated Red Blood Cells % (auto) 0.0, Anion Gap 9, Glomerular Filtration Rate 3.5L, Blood Urea Nitrogen 61H, Creatinine 12.30*H, Sodium Level 139, Potassium Level 4.0, Chloride Level 104, Carbon Dioxide Level 26, Calcium Level 8.4L 12/19/18 11:17: Bedside Glucose (Misc Panel) 87 CBC/BMP Laboratory Tests 12/19/18 07:20 Red Blood Count 2.92 L, Mean Corpuscular Volume 98.3 H, Mean Corpuscular Hemoglobin 31.2, Mean Corpuscular Hemoglobin Concent 31.7 L, Red Cell Distribution Width 14.6 H, Neutrophils (%) (Auto) 69.8 H, Lymphocytes (%) (Auto) 15.1 L, Monocytes (%) (Auto) 9.5 H, Eosinophils (%) (Auto) 4.0 H, Basophils (%) (Auto) 1.3 H, Neutrophils # (Auto) 4.2, Lymphocytes # (Auto) 0.9 L, Monocytes # (Auto) 0.6, Eosinophils # (Auto) 0.2, Basophils # (Auto) 0.1, Calcium Level 8.4 L FSBS Laboratory Tests Test 12/18/18 16:38 12/18/18 20:26 12/19/18 01:14 12/19/18 11:17 Range/Units Bedside Glucose (Misc Panel) 104 113 178 87 70-105 MG/DL Microbiology Microbiology 12/17/18 Gram Stain - Final, Complete 12/17/18 Body Fluid Culture - Final, Complete 12/18/18 Gastrointestinal Tract Panel (PCR) - Final, Complete Discharge Medications Scheduled Amino AC/Protein Hydr/Whey Pro (Liquacel Liquid Protein) 960 Ml Liquid, 1 LIQ PO 3XW, (Reported) MON/SUN/FRI Calcitriol (Calcitriol) 0.25 Mcg Capsule, 0.25 MCG PO 3XW, (Reported) MON/SUN/FRI Calcitriol (Calcitriol) 0.25 Mcg Capsule, 0.5 MCG PO 4XWK, (Reported) SUN//SUN/SUN Ergocalciferol (Vitamin D2) (Drisdol) 50,000 Unit Capsule, 50,000 UNIT PO QWEEK, (Reported) SUNDAYS Ferric Citrate (Auryxia) 210 Mg Tab, 420 MG PO WM, (Reported) Folic Acid/Vit B Complex and C (April-Antonina Tablet) 1 Tab Tab, 1 TAB PO DAILY, (Reported) Gentamicin Sulfate (Gentamicin Sulfate) 15 Gm Oint...g., 1 APLCT TOP QHS, (Reported) APPLY WITH EACH DRESSING CHANGE TO PERITONEAL DIALYSIS SITE Insulin Glargine,Hum.rec.anlog (Basaglar Kwikpen U-100) 100 Unit/1 Ml Insuln.pen, 20 UNIT SC QHS, (Reported) Isosorbide Mononitrate (Isosorbide Mononitrate ER) 30 Mg Tab, 30 MG PO DAILY, (Reported) Levothyroxine Sodium (Levothyroxine Sodium) 100 Mcg Tablet, 100 MCG PO DAILY, (Reported) Lisinopril (Lisinopril) 10 Mg Tablet, 10 MG PO DAILY, (Reported) Methoxy Peg-Epoetin Beta (Mircera) 100 Mcg/0.3 Ml Syringe, 100 MCG INJ QMONTH, (Reported) Metoprolol Tartrate (Metoprolol Tartrate) 25 Mg Tablet, 25 MG PO BID, (Reported) Omeprazole (Omeprazole) 40 Mg Capsule.dr, 40 MG PO BID, (Reported) Sevelamer Carbonate (Sevelamer Carbonate) 800 Mg Tab, 2,400 MG PO TID, (Reported) Allergies Coded Allergies: Penicillins (Verified Allergy, Unknown, UNKNOWN CHILDHOOD REACTION, 09/11/18) PER [facility] RECORDS PT HAS RECEIVED MEROPENEM AND CEFEPIME IN THE PAST MAKAYLA YE DO Dec 19, 2018 14:38 LINO LONG MD Dec 21, 2018 10:43
== END 2018-12-19 12:36 | disposition home or self-care (01) | DRG 248 ==
LOC: M PCU 06:15 → M MSPAV 12-18 14:44
PROVIDERS: ADMIT Internal Medicine Nephrology; ATTEND Internal Medicine
PROC: 3E1M39Z Irrigation of Peritoneal Cavity using Dialysate, Percutaneous Approach (ICD-10-PCS; principal; 2018-12-17)
DX: K65.2 Spontaneous bacterial peritonitis (principal); I13.2 Hypertensive heart and chronic kidney disease with heart failure and with stage 5 chronic kidney disease, or end stage renal disease; N25.81 Secondary hyperparathyroidism of renal origin; N18.6 End stage renal disease; E11.22 Type 2 diabetes mellitus with diabetic chronic kidney disease; I50.22 Chronic systolic (congestive) heart failure; E11.51 Type 2 diabetes mellitus with diabetic peripheral angiopathy without gangrene; E11.40 Type 2 diabetes mellitus with diabetic neuropathy, unspecified; E11.319 Type 2 diabetes mellitus with unspecified diabetic retinopathy without macular edema; R19.7 Diarrhea, unspecified; R10.11 Right upper quadrant pain; E03.9 Hypothyroidism, unspecified; R11.2 Nausea with vomiting, unspecified; D63.1 Anemia in chronic kidney disease; E78.5 Hyperlipidemia, unspecified; Z88.0 Allergy status to penicillin; Z95.5 Presence of coronary angioplasty implant and graft; Z99.2 Dependence on renal dialysis; Z79.899 Other long term (current) drug therapy; Z87.891 Personal history of nicotine dependence; Z83.3 Family history of diabetes mellitus; Z79.4 Long term (current) use of insulin

== ENCOUNTER 2019-02-05 11:08 | Inpatient (IN) | payer OTHER ==
[~2019-02-05] VITALS: Ht 160 cm; Wt 69.6 kg
[2019-02-05] MEDS: GENTAMICIN SULFATE 0.1% OINT 15 GM TOP SCH
[2019-02-05] MEDS: LISINOPRIL 10 MG TAB PO SCH (09:00)
[~2019-02-05 11:08] MED LIST changes: +MIRC100I INJ; +OMEP-221 PO
[2019-02-05 14:35] VITALS: BP 182/94
[2019-02-05] MEDS ORDERED: LISINOPRIL 20 MG TAB PO ONE (14:45)
[2019-02-05] MEDS ORDERED: ALBUTEROL 90 MCG/ACT 8GM HFA INHALER INH PRN (15:30)
--- NOTE | 2019-02-05 15:38 | HPEPDOC ---
General Date of Admission 02/05/19 Date of Service: Feb 05, 2019 Attending Physician: MARIIA SHEIKH DO Chief Complaint The patient is a 48-year-old female admitted with a reason for visit of Nausea,Vomiting,Diarhea. Source: Patient Exam Limitations: No limitations Timing/Duration: 24 hours, Day(s) Severity: Moderate Associated Symptoms: Chest Pain, Cough, Chills, Malaise, Nausea, Vomiting History of Present Illness Patient is 58 years old female with past history of end-stage renal diseases currently on peritoneal dialysis, history of hemodialysis in the past with a functional right thigh arteriovenous (AV) graft, well known to nephrology service from multiple previous hospitalizations and from outpatient dialysis center. She presented to the hospital with a 1-day history of nausea, vomiting, decreased appetite, chills but no fever. Also patient stated that she has increased cough with greenish sputum production. She was transferred from [facility]. Patient stated that she had multiple episodes of vomiting associated with diarrhea. The last peritoneal dialysis was 5 days ago. Of note patient noncompliant with her medications and treatment. On the arrival to [facility] patient complained of nausea, vomiting, chest discomfort. EKG was done prior at [facility] showed sinus rhythm with no acute ischemic changes. Laboratory result significant for hemoglobin of 9.5, patient does not have leukocytosis, troponin was elevated to 0.29, lipase 96, lactic acid 1.4, BNP more when 35,000, potassium 5.8, glucose level of 259, creatinine 6.5. Chest x-ray was significant for infiltrate in the right lower lobe consistent with pneumonia. Home Medications Scheduled Amino AC/Protein Hydr/Whey Pro (Liquacel Liquid Protein) 960 Ml Liquid, 1 LIQ PO 3XW, (Reported) MON/WED/FRI Calcitriol (Calcitriol) 0.25 Mcg Capsule, 0.5 MCG PO 3XW, (Reported) MON/WED/FRI Calcitriol (Calcitriol) 0.25 Mcg Capsule, 0.25 MCG PO 4XWK, (Reported) SUN//SAT/SUN Ergocalciferol (Vitamin D2) (Drisdol) 50,000 Unit Capsule, 50,000 UNIT PO QWEEK, (Reported) SUNDAYS Ferric Citrate (Auryxia) 210 Mg Tab, 420 MG PO WM, (Reported) Folic Acid/Vit B Complex and C (April-Antonina Tablet) 1 Tab Tab, 1 TAB PO DAILY, (Reported) Gentamicin Sulfate (Gentamicin Sulfate) 15 Gm Oint...g., 1 APLCT TOP QHS, (Reported) APPLY WITH EACH DRESSING CHANGE TO PERITONEAL DIALYSIS SITE Insulin Glargine,Hum.rec.anlog (Basaglar Kwikpen U-100) 100 Unit/1 Ml Insuln.pen, 20 UNIT SC QHS, (Reported) Isosorbide Mononitrate (Isosorbide Mononitrate ER) 30 Mg Tab, 30 MG PO DAILY, (Reported) Levothyroxine Sodium (Levothyroxine Sodium) 100 Mcg Tablet, 100 MCG PO DAILY, (Reported) Lisinopril (Lisinopril) 10 Mg Tablet, 10 MG PO DAILY, (Reported) Methoxy Peg-Epoetin Beta (Mircera) 100 Mcg/0.3 Ml Syringe, 100 MCG INJ QMONTH, (Reported) Metoprolol Tartrate (Metoprolol Tartrate) 25 Mg Tablet, 25 MG PO BID, (Reported) Omeprazole (Omeprazole) 40 Mg Capsule.dr, 40 MG PO BID, (Reported) Sevelamer Carbonate (Sevelamer Carbonate) 800 Mg Tab, 2,400 MG PO TID, (Reported) Allergies Coded Allergies: Penicillins (Verified Allergy, Unknown, UNKNOWN CHILDHOOD REACTION, 09/11/18) PER [facility] RECORDS PT HAS RECEIVED MEROPENEM AND CEFEPIME IN THE PAST Past Medical History Medical History History of end-stage renal disease - on peritoneal dialysis, spontaneous bacterial peritonitis, previous history of hemodialysis, diabetes mellitus type 2, hypertension, hyperlipidemia, heart failure with reduced ejection fraction, peripheral vascular disease, anemia in end-stage renal disease, hypothyroidism, diabetic neuropathy, history of peritonitis in the past. Surgical History Status post cardiac catheterization and stent placement, history of hysterectomy, status post chest tube placement because of pericardial effusion 2016, tubal ligation, history of AV fistula in the right arm in the past, and she has a functioning right thigh AV graft as well. She had kidney and liver biopsy. Revision of peritoneal dialysis catheter in September 2018 Family History both parents diabetes Social History * Smoker: former Smoker Alcohol: Denies Drugs: denies A-FIB/CHADSVASC A-FIB History Current/History of A-Fib/PAF?: No Current PO Anticoag Therapy: No Review of Systems Constitutional: Reports: Chills, Malaise, Weakness, Fatigue Eyes: Denies: Pain, Vision change ENT: Denies: Head Aches, Ear Pain Skin: Reports: Rash, Lesions Pulmonary: Reports: Dyspnea, Cough Cardiovascular: Reports: Chest Pain, Orthopnea Gastrointestinal: Reports: Nausea, Vomiting, Abdominal Pain Genitourinary: Denies: Hematuria Hematologic: Denies: Bruising, Bleeding Excessively Endocrine: Denies: Polydipsia, Polyphagia Musculoskeletal: Denies: Neck Pain, Back Pain Neurological: Denies: Weakness, Numbness Psych: Reports: Mood Normal Physical Examination General Exam: Positive: Alert, Cooperative Eye Exam: Positive: PERRLA ENT Exam: Positive: Atraumatic Neck Exam: Positive: Supple; Negative: JVD Chest Exam: Positive: Rhonchi (at the base b/l) Heart Exam: Positive: Regular Rhythm Telemetry: Positive: Sinus Abdomen Exam: Positive: BS Hypoactive Extremity Exam: Negative: Clubbing, Cyanosis Skin Exam: Positive: Nl turgor and temperature Neuro Exam: Positive: Strength at 5/5 X4 ext, Cranial Nerves 3-12 NL Psych Exam: Positive: Mental status NL Assessment/Plan Patient is 58 years old female with past history of end-stage renal diseases c urrently on peritoneal dialysis, history of hemodialysis in the past with a functional right thigh arteriovenous (AV) graft, well known to nephrology service from multiple previous hospitalizations and from outpatient dialysis center. She presented to the hospital with a 1-day history of nausea, vomiting, decreased appetite, chills but no fever. She was transferred from [facility]. Patient stated that she had multiple episodes of vomiting associated with diarrhea. The last peritoneal dialysis was 5 days ago Problems (1) HCAP (healthcare-associated pneumonia) Status: Acute Problem Text: Patient has increased cough with greenish sputum Chest x-ray showed right lobe infiltrate Will start ceftriaxone with doxycycline IV Continue inhalers (2) ESRD (end stage renal disease) Status: Acute Problem Text: Patient is volume overloaded, BNP significantly elevated Volume will be managed by dialysis Dr. Acevedo follows her (3) CHF exacerbation Status: Acute Problem Text: Heart failure with reduced ejection fraction Secondary to volume overload Peritoneal dialysis Continue home cardioprotective medication (4) Abdominal pain Status: Acute Problem Text: Abdominal CT was done in the [facility] and was negative for perforation, showed moderate ascites I will discuss with air hoist operator peritoneal fluid analysis We'll check liver function test Pain management (5) Diabetes mellitus Status: Chronic Problem Text: Insulin sliding scale Diabetes diet (6) Anemia Status: Chronic Problem Text: Most likely anemia of chronic diseases secondary to end-stage renal diseases Iron panel, B12, folate Administration of Aranesp will defer to air hoist operator (7) Hyperthyroidism Problem Text: Secondary hyperparathyroidism. c/w Calcitriol MARIIA SHEIKH DO Feb 05, 2019 15:38
[2019-02-05] MEDS ORDERED: GLUCAGON FOR INJ 1 MG VIAL (J1610) SC PRN (15:45)
[2019-02-05] MEDS ORDERED: GLUCOSE 4 GM CHEW TABLET PO PRN (15:45)
[2019-02-05] MEDS ORDERED: DEXTROSE 50% 50 ML SYRINGE IV PRN (15:45)
--- NOTE | 2019-02-05 16:34 | ECGEPIP ---
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 Rightward axis deviation Low voltages with slow precordial R-wave progression and persistent S waves V5 and V6; body habitus versus pulmonary disease Nonspecific ST/T-wave abnormalities. No change from 09/18/18 Electronically Signed on 02-05-2019 16:34:04 EDT by Ameya Chavez
[2019-02-05] MEDS: HumaLOG INSULIN (NovoLOG) PER UNIT SC SCH ×2 (17:00→20:56)
[2019-02-05] MEDS: DOXYCYCLINE HYCLATE 100 MG in D5W MINI-BAG PLUS 100 ML IV SCH (17:25)
[2019-02-05] MEDS: ONDANSETRON 4MG/2ML VIAL (J2405) IV PRN (17:25)
[2019-02-05 17:31] LABS: ALBUMIN 3.1 GM/DL (3.2-5.2); BILIRUBIN,TOTAL 0.8 MG/DL (0.2-1.0); CALCIUM LEVEL 8.9 MG/DL (8.5-10.1); CREATININE FOR GFR 17.6 MG/DL (0.55-1.30); GLOMERULAR FILTRATION RATE 2.3 (>58); MB/CK RELATIVE INDEX 1.71 (< OR =4); PERCENT SATURATION 16.8 % (13.2-45.0); POTASSIUM SERUM 5.7 MEQ/L (3.5-5.1); TOTAL PROTEIN 6.8 GM/DL (6.4-8.2); TROPONIN I 0.04 NG/ML (< 0.10)
--- NOTE | 2019-02-05 17:33 | REP ---
Two-view chest: 02/05/2019. Indication: Dyspnea. Comparison: 09/18/2018. Findings: Right lower lobe opacity is present with small right sided pleural effusion. There is no pneumothorax. The left lung is clear. Borderline cardiomegaly is noted. Impression: Right lower lobe pneumonia. Electronically Signed by Jermaine Rice DO 02/05/2019 05:25 P
[2019-02-05 17:36] LABS: FOLATE 17.9 NG/ML
[2019-02-05] MEDS ORDERED: DEXTROSE 50% 50 ML SYRINGE IV STA (17:36)
[2019-02-05] MEDS ORDERED: HumuLIN R (REGULAR) INSULIN (NovoLIN R) **100U/ML** PER UNIT IV STA (17:36)
[2019-02-05 18:00] VITALS: BP 138/89
[2019-02-05] MEDS: (RENVELA) SEVELAMER **CARBONate** 800 MG TAB PO SCH (18:00)
[2019-02-05 18:41] LABS: HEMATOCRIT 30.4 % (36.0-47.0); HEMOGLOBIN 9.4 g/dl (12.0-15.5); MEAN CORPUSCULAR HGB CONC 30.9 g/dl (32.0-36.5); MEAN CORPUSCULAR VOLUME 93.8 fl (80.0-96.0); PLATELET COUNT, AUTOMATED 145 10^3/uL (150-450); RED BLOOD COUNT 3.24 10^6/uL (4.00-5.40); WHITE BLOOD COUNT 9.6 10^3/uL (4.0-10.0)
[2019-02-05] MEDS ORDERED: CALCIUM CHLORIDE 10% 1 GM in D5W 100 ML IV SCH (19:00)
[2019-02-05 19:44] VITALS: BP 190/98
[2019-02-05] MEDS: HEPARIN SOD (PORCINE) 5000 UNITS/ML VIAL SC SCH (20:41)
[2019-02-05 20:44] LABS: SOURCE, BODY FLUID PERITONEAL DIALYSATE
[2019-02-05] MEDS: LEVEMIR (INSULIN DETEMIR) 1 UNITS/0.01ML SC SCH (20:44)
[2019-02-05 20:45] LABS: APPEARANCE, BODY FLUID CLOUDY (CLEAR); PERITONEAL DIALYSATE FL COLOR PALE YELLOW (COLORLESS)
[2019-02-05] MEDS: METOPROLOL TART 25 MG TABLET PO SCH (20:45)
[2019-02-05] MEDS ORDERED: DARBEPOETIN 100 MCG/0.5 ML *DIALYSIS* SYRINGE (J0882) IV SCH (20:45)
[2019-02-05] MEDS: ISOSORBIDE MON. (IMDUR) 30 MG XR TAB PO SCH (20:47)
[2019-02-05] MEDS: SLF 3 ML SYR IV SCH (20:57)
[2019-02-05] MEDS ORDERED: SLF 3 ML SYR IV PRN (21:00)
[2019-02-05 21:07] LABS: SOURCE, BODY FLUID ALBUMIN PERITONEAL; SOURCE, BODY FLUID GLUCOSE PERITONEAL
[2019-02-05 21:41] VITALS: BP 220/98
[2019-02-05 21:51] LABS: CALCIUM LEVEL 9.6 MG/DL (8.5-10.1); CREATININE FOR GFR 16.7 MG/DL (0.55-1.30); GLOMERULAR FILTRATION RATE 2.5 (>58); POTASSIUM SERUM 4.7 MEQ/L (3.5-5.1)
[2019-02-05] MEDS: **hydrALAZINE** 10 MG TAB PO PRN (22:10)
--- NOTE | 2019-02-05 22:40 | CR ---
DATE OF NEPHROLOGY CONSULTATION: 02/05/2019 REQUESTING PHYSICIAN: Damir Lawler MD CONSULTING PHYSICIAN: Darcie Mcdaniel MD REASON FOR CONSULTATION: Management of end-stage renal disease, fluid overload and hyperkalemia. CHIEF COMPLAINT The patient presented to the hospital today with nausea, vomiting, decreased appetite and shortness of breath. HISTORY OF PRESENT ILLNESS: Subha Trivedi is a 48-year-old female with past medical history of end-stage renal disease. She used to be on hemodialysis via the right thigh AV graft in the past, but currently she is on peritoneal dialysis, well-known to nephrology service from outpatient dialysis and from multiple previous hospitalizations. The patient was supposed to follow up with myself in the home therapy center today in the afternoon. However, she did not show up in the clinic. The patient presented to the emergency room today and she reported that she is having a progressive shortness of breath, nausea, vomiting and decreased appetite. She denies any fevers or chills. On further questioning, the patient admitted that she has not been doing home peritoneal dialysis since Sunday, which is four days ago. She reports that she is living alone and doing daily home PD is very overwhelming for her. She does not want to do it anymore. She wants to switch back to hemodialysis. With further investigation on arrival at [facility], the patient was found to have hyperkalemia with a potassium of 5.7. She had a BUN of 105. The patient was volume overloaded. She had right-sided pleural effusion with atelectasis versus infiltrate in the right lower lobe, emergent nephrology consult requested. The patient needed my immediate attention. I saw and evaluated the patient in the evening today. When I saw the patient she was awake. She was able to provide the history and she was able to follow commands, but she was in mild respiratory distress. She was already started on IV antibiotics by the time I saw her. PAST MEDICAL HISTORY Past medical history of end-stage renal disease on peritoneal dialysis, history of peritonitis in the past secondary to peritoneal dialysis catheter, diabetes mellitus type 2, hypertension, hyperlipidemia, chronic congestive heart failure with reduced ejection fraction, secondary hyperparathyroidism, anemia and chronic kidney disease, hypothyroidism. PAST SURGICAL HISTORY Status post right thigh AV graft placement, status post peritoneal dialysis catheter placement, history of hysterectomy in the past, status post cardiac catheterization in the past, tubal ligation, history of kidney and liver biopsy. ALLERGIES: The patient is allergic to PENICILLIN. FAMILY HISTORY No significant family history of end-stage renal disease requiring hemodialysis. There is history of diabetes in the parents. SOCIAL HISTORY The patient lives alone. She is a former smoker. She denies any illicit drug abuse or alcohol abuse. The patient reports that because she gets so overwhelmed with the peritoneal dialysis she cannot do the PD at home any more and she wants to switch to hemodialysis. REVIEW OF SYSTEMS Constitutional: She denies any fevers or chills. She does report weakness. Eyes: She denies any blurry vision, double vision. ENT: She denies any dysphagia, odynophagia, ear discharge. Cardiovascular: She denies any chest pain, palpitation. Respiratory: She reports shortness of breath and some cough. GI: She reports nausea, vomiting and decreased appetite. Genitourinary: She denies any dysuria or hematuria. Musculoskeletal: She denies any muscle aches and pains. Skin: She denies any rashes or ulcers. Endocrine: She reports history of hypothyroidism and diabetes mellitus type 2. Hematology/Oncology: She denies any easy bleeding or bruising. Psych: The patient reports that she is depressed, she is overwhelmed, she cannot do the PD any more. All other review of systems is negative. PHYSICAL EXAMINATION General: The patient is awake, alert, oriented times three, mild respiratory distress, sitting up in the bed. Vital signs: Temperature is 98.7 degrees Fahrenheit. Blood pressure 190/98, pulse is 97, respiratory rate of 16, saturating 97% on nasal cannula at 2 liters. Head and neck examination: Extraocular muscles intact. Pupils equally round and reactive to light. Mucous membranes are moist. Neck is supple. She has moderate elevation of the JVD. Cardiovascular: The patient has pericardial rub all over the precordium. She has at 2+ edema of the bilateral lower extremities. Respiratory: Decreased breath sounds bilaterally at the bases, right is worse than left. She has decreased vocal resonance of the right base up to the right mid lung zone. Abdomen: Soft, positive bowel sounds. Nontender. Left lower quadrant PD catheter exit site is clean. Genitourinary: Bladder is not palpable. No hernia were noted. Musculoskeletal: She has 2+ edema of the bilateral lower extremities, otherwise no clubbing or cyanosis. 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 Patient follows commands and she is able to communicate. Skin: No rashes or ulcers. Lymph nodes: No significant cervical, axillary or inguinal lymphadenopathy. LAB REVIEW: CBC showed a WBC 9.6, hemoglobin 9.4, platelets 145. Urinalysis showed 3+ protein, 1+ blood, 4 WBCs and 6 RBCs per high-power field. BMP showed sodium 141, potassium 5.7, chloride 105, bicarb 24, BUN 105, creatinine is 17.6 and glucose is 196, lactic acid 1, iron 37, TIBC 220, transferrin saturation is 16.8, alkaline phosphatase is 121. CPK 468, Pro-BNP is 120,545, albumin is 3.1. Microbiology blood cultures are pending. IMAGING STUDIES A chest x-ray was done today which showed right lower lobe opacity and a small right-sided pleural effusion, possible right lower lobe pneumonia. HOME MEDICATIONS: The patient's home medications include LiquaCel three times a week Sunday, Sunday, Sunday, calcitriol 0.5 mcg by mouth three times a week and 0.525 mcg four times a week, vitamin D 50,000 units once a week, Auryxia 2 tablets by mouth three times a day with meals, April-Antonina renal vitamin, gentamicin topical on the dressing at the PD catheter site, insulin Basaglar 20 units at bedtime, isosorbide mononitrate 30 mg every by mouth daily, levothyroxine 100 mcg by mouth daily, lisinopril 10 mg by mouth daily, Mircera 100 mcg once a month, metoprolol 25 mg by mouth twice a day, omeprazole 40 mg by mouth twice a day and Renvela 2.4 grams by mouth three times a day with meals. CURRENT INPATIENT MEDICATIONS: The patient's inpatient medications include Rocephin 1 gram IV every 24, doxycycline 100 mg IV every 12 hourly, calcitriol 0.5 mcg on Sunday, Sunday, Sunday and 0.25 mcg on Sunday, , Sunday, Sunday, iron tablet 324 mg daily, gentamicin topical, heparin 5000 units subcu every 12 hourly, insulin Levemir 10 units subcu twice a day, insulin sliding scale, isosorbide mononitrate 30 mg by mouth daily, levothyroxine 100 mcg by mouth daily, lisinopril 10 mg daily, metoprolol tartrate 25 mg by mouth twice a day, Renvela 2.4 grams by mouth with meals and vitamin D 50,000 units by mouth once a week. ASSESSMENT 48-year-old female with history of end-stage renal disease on peritoneal dialysis, secondary hyperparathyroidism, hypothyroidism, hypertension, congestive heart failure, diabetes mellitus type 2, insulin dependent admitted this time with acute decompensated congestive heart failure, hypertensive urgency and acute uremic pericarditis secondary to noncompliance with peritoneal dialysis at home. PLAN: 1. Acute uremic pericarditis. Patient is noncompliant with peritoneal dialysis at home. Her BUN is more than 100. I am going to start the peritoneal dialysis overnight. She will get 2.5% 2 liters exchanges every four hourly overnight and in the morning the patient will be started on heparin free hemodialysis and she will get daily hemodialysis. I have also ordered an echocardiogram to be done. The patient is hemodynamically stable at this time. 2. Acute decompensated congestive heart failure. Latest echocardiogram is not available. Previous echocardiogram showed grade 1 diastolic dysfunction. Patient is significantly volume overloaded. Continue the every 4 hourly manual exchanges overnight. Further volume management will be done with hemodialysis in the morning. Continue metoprolol, isosorbide and lisinopril at this time. 3. Hypertensive urgency. It is secondary to volume overload and noncompliance with dialysis and medications. Fluid removal with peritoneal dialysis would help improve the blood pressure as well. Continue lisinopril 10 mg daily, metoprolol 25 mg by mouth twice a day, isosorbide 30 mg by mouth daily. 4. Right-sided pleural effusion and right lower lobe infiltrate. The patient has been empirically started on ceftriaxone and doxycycline. Most likely it is atelectasis secondary to effusion and fluid overload. The patient's BMP is significantly elevated. Is more than 100,000. Once the volume status is optimization, the patient will get a repeat x-ray done. If it does not show resolution of the infiltrate, the patient will get a CT scan to rule out pneumonia. Serology for pneumonia hs already been ordered by the hospitalist team. 5. Diabetes mellitus type 2, insulin dependent. Continue insulin Levemir and sliding scale. 6. Anemia in end-stage renal disease. Hemoglobin is 9.4, iron levels are low. The patient was start getting iron with daily hemodialysis. I am also going to start the patient on Aranesp with hemodialysis. 7. Hyperkalemia. It is secondary to noncompliance with dialysis and the use of lisinopril. Potassium level is expected to improve with manual peritoneal exchanges. No need of Kayexalate administration at this time. 8. Hypothyroidism. Continue home dose of levothyroxine. 9. Secondary hyperparathyroidism. Continue home dose of calcitriol 0.5 mcg three times a week and 0.25 mcg four times a week. 10. Chronic kidney disease, mineral bone disease. Continue current dose of Renvela 2.4 grams by mouth with meals. Check the phosphorus level in the morning. 11. End Stage Renal Disease,dependent on renal dialysis: Continue PD tonight and switch to HD in AM. Pt will get the PD Catheter removed once she switches to HD. Thank you for involving me in the care of this patient. Nephrology service will be happy to follow the patient along with you tomorrow morning. Plan of care was discussed with the patient's RN at the bedside and with the primary hospitalist team Dr. Nuris woodward. The patient is being transferred to progressive care unit for higher level of care and close monitoring. Total critical care time spent in the management of this patient tonight at the bedside was 1 hour and 10 minutes; that does not include any procedures. SRAVANTHID
[2019-02-06] VITALS (7 sets, daily range): BP systolic 140–220; BP diastolic 70–92
[2019-02-06] MEDS ORDERED: amLODIPine 5 MG TAB PO ONE (01:15)
[2019-02-06] MEDS: DOXYCYCLINE HYCLATE 100 MG in D5W MINI-BAG PLUS 100 ML IV SCH ×2 (03:14→16:33)
[2019-02-06] MEDS ORDERED: ACETAMINOPHEN 325 MG TAB PO ONE (03:45)
[2019-02-06 05:58] LABS: HEMATOCRIT 25.5 % (36.0-47.0); HEMOGLOBIN 7.9 g/dl (12.0-15.5); MEAN CORPUSCULAR HEMOGLOBIN 29.3 pg (27.0-33.0); MEAN CORPUSCULAR VOLUME 94.4 fl (80.0-96.0); PLATELET COUNT, AUTOMATED 151 10^3/uL (150-450); WHITE BLOOD COUNT 10.4 10^3/uL (4.0-10.0)
[2019-02-06] MEDS: SLF 3 ML SYR IV SCH ×3 (06:23→20:41)
[2019-02-06] MEDS: LEVOTHYROXINE 100MCG TABLET (0.1MG) PO SCH (06:23)
[2019-02-06] MEDS: HumaLOG INSULIN (NovoLOG) PER UNIT SC SCH ×4 (07:30→20:32)
[2019-02-06] MEDS: (RENVELA) SEVELAMER **CARBONate** 800 MG TAB PO SCH ×3 (08:00→18:27)
[2019-02-06] MEDS ORDERED: IRON SUCROSE 100MG 5ML VIAL (J1756 PER 1MG) IV SCH (08:00)
[2019-02-06 08:47] LABS: ALBUMIN 2.5 GM/DL (3.2-5.2); ALT/SGPT 8 U/L (12-78); BILIRUBIN,TOTAL 0.9 MG/DL (0.2-1.0); BLOOD UREA NITROGEN 92 MG/DL (7-18); CALCIUM LEVEL 8.9 MG/DL (8.5-10.1); CARBON DIOXIDE LEVEL 24 MEQ/L (21-32); CHLORIDE LEVEL 105 MEQ/L (98-107); GLOMERULAR FILTRATION RATE 2.6 (>58); GLUCOSE, FASTING 155 MG/DL (70-100); MAGNESIUM LEVEL 1.8 MG/DL (1.8-2.4); POTASSIUM SERUM 4.5 MEQ/L (3.5-5.1); PTH INTACT 219.5 PG/ML (18.5-88.0); SODIUM LEVEL 141 MEQ/L (136-145); TOTAL PROTEIN 5.7 GM/DL (6.4-8.2)
[2019-02-06] MEDS: LEVEMIR (INSULIN DETEMIR) 1 UNITS/0.01ML SC SCH ×2 (08:49→20:27)
[2019-02-06] MEDS ORDERED: cefTRIAXone SOD 2 GM in D5W MINI-BAG PLUS 50 ML IV SCH (09:00)
[2019-02-06] MEDS ORDERED: cefTRIAXone SOD 1 GM in D5W MINI-BAG PLUS 50 ML IV SCH (09:00)
[2019-02-06 11:32] LABS: PHOSPHORUS LEVEL 6.3 MG/DL (2.5-4.9)
[2019-02-06] MEDS: HEPARIN SOD (PORCINE) 5000 UNITS/ML VIAL SC SCH ×2 (13:31→20:26)
[2019-02-06] MEDS: LISINOPRIL 10 MG TAB PO SCH (13:32)
[2019-02-06] MEDS: OMEPRAZOLE 20 MG CAP PO SCH (13:32)
[2019-02-06] MEDS: ISOSORBIDE MON. (IMDUR) 30 MG XR TAB PO SCH (13:32)
[2019-02-06] MEDS: FERROUS GLUCONATE 324 MG TAB PO SCH (13:33)
[2019-02-06] MEDS: METOPROLOL TART 25 MG TABLET PO SCH ×2 (13:33→20:27)
[2019-02-06] MEDS: CALCITRIOL 0.25 MCG CAP (S0169) PO SCH (13:33)
[2019-02-06] MEDS: ONDANSETRON 4MG/2ML VIAL (J2405) IV PRN (13:38)
[2019-02-06] MEDS: ACETAMINOPHEN TAB 650MG DOSE (2X325MG) PO PRN (13:38)
--- NOTE | 2019-02-06 13:54 | IPN ---
DATE OF SERVICE: 02/06/2019 SUBJECTIVE: Subha is seen and examined this morning in the hemodialysis unit receiving a hemodialysis treatment without any acute issues. She did have several peritoneal dialysis (PD) exchanges overnight. Her peritoneal cell count came back positive for peritonitis. Her blood pressure has improved with fluid removal, and the patient reports she is feeling more comfortable this morning. Reports her diarrhea is ongoing but has lessened as compared to previously. Vital signs: Temperature 98.4, pulse 75, respiratory rate 18, blood pressure 148/80, saturating 91% on 2 liters nasal cannula. Net negative 900 mL. Weight in the bed scale today is 74.5 kg. General: The patient is seen on hemodialysis receiving her treatment. Middle-aged female, awake, alert, oriented times three, in no acute respiratory distress. Extraocular muscles are intact. Tongue is moist. Neck is supple. Jugular veins are elevated moderately. Cardiac: There is a pericardial rub present. There is about 1+ edema in the lower extremities. Respiratory: There is diminished breath sounds bilaterally at the bases. Abdomen is soft. There are bowel sounds. Abdomen is nontender. The PD catheter exit site is clean and dressed. There is no peritoneal fluid in situ. Musculoskeletal: There is lower extremity edema. There is a graft present in the right side, which is presently in use. Neurologic: The patient is oriented times three, interactive and conversational. LABORATORY DATA: White count 10.4, hemoglobin 7.9, platelet 151. Sodium 141, potassium 4.5, bicarbonate 24, BUN 92, creatinine 15, phosphorus 6.3, magnesium 1.8. Transferrin saturation 16%. Parathyroid hormone 219, 425 WBCs in the peritoneal fluid. There is an abundance of mononuclear cells in the peritoneal fluid 90%, polymorphs are 9%. MICROBIOLOGY: Peritoneal cultures are pending. INPATIENT MEDICATIONS: Reviewed by myself. The patient is ordered for vancomycin intraperitoneal 1 gram times one and gentamicin 80 mg intraperitoneal times one. Remainder of medications are unchanged from prior. PROBLEMS: 1. End-stage renal disease previously on peritoneal dialysis complicated by peritonitis and noncompliance with peritoneal dialysis now switching over to hemodialysis. The patient received a hemodialysis treatment today with 2.5 liters of fluid removal and she will be hemodialyzed again on Sunday and Sunday and she will need outpatient arrangement for hemodialysis chair as she does not wish to continue with peritoneal dialysis at the present time. 2. Peritonitis in this patient with peritoneal dialysis. Peritoneal cell count with almost 500 WBCs with mononuclear cells in predominance of more than 90%. Peritoneal cultures are pending. She will receive one dose of intraperitoneal vancomycin and intraperitoneal gentamicin today, and we will continue with daily peritoneal cell counts. I have instructed the nursing staff that the patient will need one peritoneal dialysis exchange every 24-hour period in order to receive her intraperitoneal antibiotics and in order to get fluid specimen for daily peritoneal cell count 3. Decompensated diastolic congestive heart failure. Repeat echocardiogram is pending. The patient is volume overloaded significantly. She is net negative about a liter from peritoneal dialysis and we are removing 2.5 liters with hemodialysis today. She will continue on daily hemodialysis treatments in view of her volume overload and in view of her uremic pericarditis. 4. Uremic pericarditis secondary to noncompliance with home peritoneal dialysis prescription. The patient is going to receive serial hemodialysis with heparin free prescription. Repeat echocardiogram is pending. 5. Uncontrolled hypertension. It is secondary to fluid overload and noncompliance with dialysis and with antihypertensives. Her blood pressure is already improving and I would include hold parameters with her antihypertensive medications. I would expect blood pressure to improve with correction of her volume status. 6. Right-sided pleural effusion and right lower lobe infiltrate. The patient is receiving doxycycline twice a day. She was also on ceftriaxone, which I did discontinue as I am giving her intraperitoneal vancomycin and gentamicin for the peritonitis, but it will be systemically absorbed and should cover for pneumonia as well. 7. Anemia in end-stage renal disease with iron deficiency. She is getting Venofer and continues on the usual Aranesp. 8. Hyperkalemia. It was secondary to noncompliance with dialysis and with concomitant angiotensin-converting enzyme (CHAD) inhibitor use. It has improved with reinitiation of dialysis. 9. Secondary hyperparathyroidism. Her parathyroid hormone level was acceptable. Continue home dose of calcitriol and her phosphorus level is expected to improve with regular dialysis as well. Continue with Renvela.
[2019-02-06] MEDS ORDERED: GENTAMICIN SULF INJ 80MG/2ML VIAL (J1580) IP ONE (14:00)
[2019-02-06] MEDS ORDERED: VANCOMYCIN 1000 MG/20 ML VIAL (J3370) IP ONE (14:00)
--- NOTE | 2019-02-06 17:08 | IPNPDOC ---
Text Note Date of Service The patient was seen on 02/06/19. NOTE Subjective: No any acute events overnight. Patient stated that she feels much better after dialysis. Patient denies fever, chills, shortness of breath, palpitations. General Exam: Positive: Alert, Cooperative Eye Exam: Positive: PERRLA ENT Exam: Positive: Atraumatic Neck Exam: Positive: Supple; Moderate JVD Chest Exam: Positive: Rhonchi (at the base b/l) Heart Exam: Positive: Regular Rhythm, prominent pericardial rub Telemetry: Positive: Sinus Abdomen Exam: Positive: BS Hypoactive, The PD catheter exit site is clean and dressed. There is no peritoneal fluid in situ. Musculoskeletal: There is lower extremity edema. There is a graft present in the right side, which is presently in use. Extremity Exam: Negative: Clubbing, Cyanosis Skin Exam: Positive: Nl turgor and temperature Neuro Exam: Positive: Strength at 5/5 X4 ext, Cranial Nerves 3-12 NL Psych Exam: Positive: Mental status NL Assessment/Plan Patient is 58 years old female with past history of end-stage renal diseases currently on peritoneal dialysis, history of hemodialysis in the past with a functional right thigh arteriovenous (AV) graft, well known to nephrology service from multiple previous hospitalizations and from outpatient dialysis center. She presented to the hospital with a 1-day history of nausea, vomiting, decreased appetite, chills but no fever. She was transferred from [facility]. Patient stated that she had multiple episodes of vomiting associated with diarrhea. The last peritoneal dialysis was 5 days ago. Patient was diagnosed with right lung pneumonia, uremic pericarditis and CHF exacerbation. Problems (1) HCAP (healthcare-associated pneumonia) Status: Acute Problem Text: Patient has increased cough with greenish sputum Chest x-ray showed right lobe infiltrate doxycycline IV, ceftriaxone discontinued due to patient received vancomycin and gentamicin via peritoneal dialysis Continue inhalers (2) ESRD (end stage renal disease) Status: Acute Problem Text: Patient is volume overloaded, BNP significantly elevated Volume will be managed by dialysis Present male fluid analysis significant for leukocytes 482, suggestive peritonitis Peritoneal dialysis will be switched to hemodialysis Dr. Acevedo follows her (3) CHF exacerbation Diastolic CHF in acute exacerbation Status: Acute Problem Text: Heart failure with preserved ejection fraction Secondary to volume overload and noncompliance to medication Continue dialysis Continue home cardioprotective medication (4) Abdominal pain Status: Acute Problem Text: Abdominal CT was done in the [facility] and was negative for perforation, showed moderate ascites I will discuss with workers compensation claims examiner peritoneal fluid analysis We'll check liver function test Pain management (5) Diabetes mellitus Status: Chronic Problem Text: Insulin sliding scale Diabetes diet (6) Anemia Status: Chronic Problem Text: Most likely anemia of chronic diseases secondary to end-stage renal diseases Iron panel, B12, folate She is getting Venofer and continues on the usual Aranesp. (7) Hyperthyroidism Problem Text: Secondary hyperparathyroidism. c/w Calcitriol Peritonitis in this patient with peritoneal dialysis Peritoneal fluid culture pending Patient received intra-peritoneal vancomycin and gentamicin, continue daily per nephrology team Uremic pericarditis Secondary to noncompliance to dialysis Echo is pending Hypertension Improved Secondary to volume overload in top of noncompliance to medications Continue home meds Most likely improve after fluid removal due to dialysis Hyperkalemia. Improved It was secondary to noncompliance with dialysis and with concomitant angiotensin-converting enzyme (CHAD) inhibitor use. VS,Fishbone, I+O VS, Fishbone, I+O Laboratory Tests 02/05/19 21:05 02/06/19 05:28 Vital Signs Date Time Temp Pulse Resp B/P (MAP) Pulse Ox O2 Delivery O2 Flow Rate FiO2 02/06/19 16:00 97.3 73 18 140/80 (100) 96 Room Air 02/06/19 13:48 2.0 I&O- Last 24 Hours up to 6 AM0 02/06/19 06:00 Intake Total 7200 ml Output Total 5050 ml Balance 2150 ml MARIIA SHEIKH DO Feb 06, 2019 17:08
[2019-02-06 17:12] LABS: APPEARANCE, BODY FLUID CLEAR (CLEAR); PERITONEAL FL COLOR COLORLESS (COLORLESS); SOURCE, BODY FLUID PERITONEAL
--- NOTE | 2019-02-06 18:13 | ECHO ---
DATE OF PROCEDURE: 02/06/2019 DATE OF : AGE: 48 GENDER: Female HEIGHT: 63 inches WEIGHT: 165 pounds BODY SURFACE AREA: 1.78 meters squared INPATIENT: Progressive care unit (PCU), room 3216 REFERRING PHYSICIAN: Dr. Mcdaniel INDICATION: Pericardial effusion. MEASUREMENTS: 2D Measurements: RV: 4.0 cm LV: 4.2 cm Septum: 1.2 cm Posterior wall: 1.2 cm Aortic root: 2.7 cm LA: 4.1 cm LVEF: 65% DOPPLER MEASUREMENTS: AV: 1.43 meters per second LVOT: 1.1 meters per second LVOT diameter: 2.0 cm MV-E: 93, A: 110, EA ratio: 0.8 Early mitral deceleration time: 246 milliseconds E prime: 5, A prime: 6 (medial), E prime 6.6 (lateral) Average E/E ratio: 16 Pulmonary capillary wedge pressure: 21.8 mmHg PV: 1.0 meters per second Pulmonary artery acceleration time: 100 milliseconds RVSP: 46 mmHg IVC: 2.2 cm COMMENTS: Normal sinus rhythm without intraventricular conduction disturbance. M-mode and two-dimensional echocardiography was performed with pulsed, continuous wave, color flow and tissue Doppler studies. Borderline concentric left ventricle hypertrophy with normal wall motion. Mildly dilated left atrium with grade 1 left ventricular (LV) diastolic dysfunction and significantly elevated mean left atrial pressure. Right heart chambers upper limits of normal in size with normal wall motion and current Doppler evidence of moderate pulmonary hypertension. Borderline dilated inferior vena cava (IVC) with reduced respiratory collapse in keeping with an elevated central venous pressure. Normal appearing and functioning valvular structures. Moderate pericardial effusion measuring a maximum of 1.6 cm over the inferolateral basilar segment of the left ventricle and 2-4 mm anteriorly. 1.2 cm laterally. No evidence of cardiac chamber compression. There was no significant respiratory variation to Doppler flow signals. However, this is a clinical diagnosis. Would recommend close monitoring.
[2019-02-06] MEDS: GENTAMICIN SULFATE 0.1% OINT 15 GM TOP SCH (20:27)
[2019-02-06 23:03] LABS: APPEARANCE, BODY FLUID CLEAR (CLEAR); PERITONEAL FL COLOR PALE YELLOW (COLORLESS); SOURCE, BODY FLUID PERITONEAL
[2019-02-07] VITALS: BP 118/59
[2019-02-07] MEDS: DOXYCYCLINE HYCLATE 100 MG in D5W MINI-BAG PLUS 100 ML IV SCH ×2 (03:45→15:11)
[2019-02-07 04:00] VITALS: BP 165/77
[2019-02-07] MEDS: LEVOTHYROXINE 100MCG TABLET (0.1MG) PO SCH (05:07)
[2019-02-07] MEDS: SLF 3 ML SYR IV SCH ×3 (05:07→21:21)
[2019-02-07] MEDS: HumaLOG INSULIN (NovoLOG) PER UNIT SC SCH ×4 (07:30→20:20)
[2019-02-07 08:00] VITALS: BP 152/78
[2019-02-07] MEDS: (RENVELA) SEVELAMER **CARBONate** 800 MG TAB PO SCH ×3 (08:00→17:55)
[2019-02-07] MEDS: cefTRIAXone SOD 1 GM in D5W MINI-BAG PLUS 50 ML IV SCH ×2 (09:00→12:50)
[2019-02-07] MEDS: LEVEMIR (INSULIN DETEMIR) 1 UNITS/0.01ML SC SCH ×2 (09:00→20:20)
[2019-02-07 09:02] LABS: HEMOGLOBIN 8.6 g/dl (12.0-15.5); MEAN CORPUSCULAR HEMOGLOBIN 29.4 pg (27.0-33.0); MEAN CORPUSCULAR HGB CONC 30.7 g/dl (32.0-36.5); MEAN CORPUSCULAR VOLUME 95.6 fl (80.0-96.0); PLATELET COUNT, AUTOMATED 121 10^3/uL (150-450); RED BLOOD COUNT 2.93 10^6/uL (4.00-5.40); WHITE BLOOD COUNT 7.2 10^3/uL (4.0-10.0)
[2019-02-07 09:43] LABS: CALCIUM LEVEL 8.4 MG/DL (8.5-10.1); CREATININE FOR GFR 8.54 MG/DL (0.55-1.30); GLOMERULAR FILTRATION RATE 5.3 (>58); POTASSIUM SERUM 3.9 MEQ/L (3.5-5.1)
[2019-02-07 10:00] LABS: HEPATITIS B SURFACE ANTIBODY POSITIVE (POSITIVE)
[2019-02-07 10:07] LABS: HEPATITIS B SURFACE ANTIGEN NEGATIVE (NEGATIVE)
[2019-02-07 10:35] LABS: HEPATITIS C VIRUS ABY INDEX 0.1 INDEX (<0.8)
[2019-02-07 10:36] LABS: HEPATITIS B CORE ANTIBODY IGM NEGATIVE (NEGATIVE)
[2019-02-07 12:36] VITALS: BP 157/70
[2019-02-07] MEDS: OMEPRAZOLE 20 MG CAP PO SCH (12:47)
[2019-02-07] MEDS: CALCITRIOL 0.25 MCG CAP (S0169) PO SCH (12:47)
[2019-02-07] MEDS: LISINOPRIL 10 MG TAB PO SCH (12:48)
[2019-02-07] MEDS: FERROUS GLUCONATE 324 MG TAB PO SCH (12:49)
[2019-02-07] MEDS: ISOSORBIDE MON. (IMDUR) 30 MG XR TAB PO SCH (12:49)
[2019-02-07] MEDS: METOPROLOL TART 25 MG TABLET PO SCH ×2 (12:49→21:20)
[2019-02-07] MEDS: HEPARIN SOD (PORCINE) 5000 UNITS/ML VIAL SC SCH ×2 (12:50→21:21)
--- NOTE | 2019-02-07 13:43 | IPN ---
DATE: 02/07/2019 SUBJECTIVE: Subha was seen and examined this morning in the hemodialysis unit receiving a treatment. She reports she is still having some mild diarrhea but is no longer vomiting. Reports that her breathing is feeling better. Her peritoneal dialysis exchanges are being stopped at present. Subha tells me that she is still trying to decide whether she wants to continue peritoneal dialysis as an outpatient are switch over to the hemodialysis. PHYSICAL EXAMINATION: Vital signs: Temperature 97.0, pulse 83, respiratory rate 18, blood pressure 157/70, saturating 96% on room air. The patient's weight on the bed scale today is 63.1 kg, which is significantly different from prior. General: The patient is seen in the dialysis unit receiving her treatment. Awake, alert, oriented times three. Comfortable and in no acute distress. Extraocular muscles are intact. Tongue is moist. Neck is supple. Jugular veins are elevated. Cardiac S1, S2. There is a pericardial rub present. Her peripheral edema is improved from prior. Respiratory: Lungs with symmetric air entry bilaterally. No crackle or rhonchus. Abdomen is soft. There are bowel sounds. The abdomen is nontender. The peritoneal dialysis catheter exit site is clean and dressed. Musculoskeletal: Lower extremity edema has resolved. There is an arteriovenous graft present in the right thigh, which is presently in use. Neurologic: The patient is oriented times three. Interactive and conversational. LABORATORY DATA: Sodium 140, potassium 3.9, bicarbonate 28, glucose 85, hemoglobin 8.6. White count 7.2. Peritoneal cell count from yesterday afternoon prior to antibiotic administration was WBC of 13. INPATIENT MEDICATIONS: I have discontinued intraperitoneal vancomycin and intraperitoneal gentamicin, and I have restarted the patient on IV ceftriaxone 1 gram once daily. Primary team has adjusted her insulin. Remainder of medications are unchanged from prior. PROBLEMS: 1. End-stage renal disease. The patient has most recently been on peritoneal dialysis, but was noncompliant and missed several days of treatment and was admitted with fluid overload and uremic pericarditis and has received her second hemodialysis treatment today. We will plan to do hemodialysis again on Sunday. The patient tells me that she is still trying to decide with whether she wants to continue peritoneal dialysis as an outpatient or if she wants to become a hemodialysis patient as an outpatient. Her peritoneal dialysis cell count yesterday afternoon, which was obtained prior to intraperitoneal antibiotic administration showed resolution of WBCs and the predominance previously was noted to be monocytic, hence I am discontinuing further intraperitoneal antibiotics at this time, and I am also discontinuing daily peritoneal cell counts. Her peritoneal cultures thus far are negative. 2. Right-sided pleural effusion and right lower lobe infiltrate. The patient continues on doxycycline twice a day, and I have discontinued intraperitoneal antibiotics. I have reordered the once daily IV ceftriaxone. 3. Decompensated diastolic congestive heart failure. Volume status is nicely improving. She is receiving serial hemodialysis in view of volume overload and uremic pericarditis. We removed 2.5 liters yesterday and 2.5 liters again today and she will be dialyzed again tomorrow. Her echocardiogram from yesterday showed a moderate pericardial effusion and diastolic dysfunction. Continue with fluid restriction. 4. Uremic pericarditis secondary to noncompliance with home peritoneal dialysis prescription. She is receiving serial hemodialysis that is heparin free. She was dialyzed on , Sunday and will be dialyzed again on Sunday. There is a moderate pericardial effusion on recent echo. 5. Uncontrolled hypertension. It is improving with dialysis and fluid removal and antihypertensives. No medication changes are being made today. 6. Anemia of end-stage renal disease. Continue with Venofer and Aranesp. 7. Secondary hyperparathyroidism. Acceptable parathyroid hormone level. Continue calcitriol and Renvela.
[2019-02-07 16:00] VITALS: BP 152/68
--- NOTE | 2019-02-07 16:42 | IPNPDOC ---
Text Note Date of Service The patient was seen on 02/07/19. NOTE Subjective: No any acute events overnight. Patient stated that her breathing markedly improved. She complains of few episodes of diarrhea. Patient denies fever, chills, shortness of breath, palpitations. General Exam: Positive: Alert, Cooperative Eye Exam: Positive: PERRLA ENT Exam: Positive: Atraumatic Neck Exam: Positive: Supple; Moderate JVD Chest Exam: Positive: Rhonchi (at the base b/l) Heart Exam: Positive: Regular Rhythm, prominent pericardial rub Telemetry: Positive: Sinus Abdomen Exam: Positive: BS Hypoactive, The PD catheter exit site is clean and dressed. There is no peritoneal fluid in situ. Musculoskeletal: There is lower extremity edema. There is a graft present in the right side, which is presently in use. Extremity Exam: Negative: Clubbing, Cyanosis Skin Exam: Positive: Nl turgor and temperature Neuro Exam: Positive: Strength at 5/5 X4 ext, Cranial Nerves 3-12 NL Psych Exam: Positive: Mental status NL DATE OF PROCEDURE: 02/06/2019 DATE OF : AGE: 48 GENDER: Female HEIGHT: 63 inches WEIGHT: 165 pounds BODY SURFACE AREA: 1.78 meters squared INPATIENT: Progressive care unit (PCU), room 3216 REFERRING PHYSICIAN: Dr. Mcdaniel INDICATION: Pericardial effusion. MEASUREMENTS: 2D Measurements: RV: 4.0 cm LV: 4.2 cm Septum: 1.2 cm Posterior wall: 1.2 cm Aortic root: 2.7 cm LA: 4.1 cm LVEF: 65% DOPPLER MEASUREMENTS: AV: 1.43 meters per second LVOT: 1.1 meters per second LVOT diameter: 2.0 cm MV-E: 93, A: 110, EA ratio: 0.8 Early mitral deceleration time: 246 milliseconds E prime: 5, A prime: 6 (medial), E prime 6.6 (lateral) Average E/E ratio: 16 Pulmonary capillary wedge pressure: 21.8 mmHg PV: 1.0 meters per second Pulmonary artery acceleration time: 100 milliseconds RVSP: 46 mmHg IVC: 2.2 cm COMMENTS: Normal sinus rhythm without intraventricular conduction disturbance. M-mode and two-dimensional echocardiography was performed with pulsed, continuous wave, color flow and tissue Doppler studies. Borderline concentric left ventricle hypertrophy with normal wall motion. Mildly dilated left atrium with grade 1 left ventricular (LV) diastolic dysfunction and significantly elevated mean left atrial pressure. Right heart chambers upper limits of normal in size with normal wall motion and current Doppler evidence of moderate pulmonary hypertension. Borderline dilated inferior vena cava (IVC) with reduced respiratory collapse in keeping with an elevated central venous pressure. Normal appearing and functioning valvular structures. Moderate pericardial effusion measuring a maximum of 1.6 cm over the inferolateral basilar segment of the left ventricle and 2-4 mm anteriorly. 1.2 cm laterally. No evidence of cardiac chamber compression. There was no significant respiratory variation to Doppler flow signals. However, this is a clinical diagnosis. Would recommend close monitoring. DD: Ameya Chavez MD, [facility] 02/06/191751 DT: RIMA 02/06/191803 DS: JAIME 02/06/192040 <Electronically signed by Ameya Chavez > 02/06/192040 DS2: Assessment/Plan Patient is 58 years old female with past history of end-stage renal diseases c urrently on peritoneal dialysis, history of hemodialysis in the past with a functional right thigh arteriovenous (AV) graft, well known to nephrology service from multiple previous hospitalizations and from outpatient dialysis center. She presented to the hospital with a 1-day history of nausea, vomiting, decreased appetite, chills but no fever. She was transferred from [facility]. Patient stated that she had multiple episodes of vomiting associated with diarrhea. The last peritoneal dialysis was 5 days ago. Patient was diagnosed with right lung pneumonia, uremic pericarditis and CHF exacerbation. Problems (1) HCAP (healthcare-associated pneumonia) Status: Acute Problem Text: Patient has increased cough with greenish sputum Chest x-ray showed right lobe infiltrate doxycycline IV switched to by mouth, ceftriaxone reordered by mica plate layer, peritoneal infusion of vancomycin and gentamicin discontinued given negative peritoneal culture and decreased level of leukocytes Continue inhalers (2) ESRD (end stage renal disease) Problem Text: Patient was volume overloaded, BNP significantly elevated Volume will be managed by dialysis Peritoneal fluid analysis significant for leukocytes 482, suggestive peritonitis. Patient received treatment with vancomycin and gentamicin intr aperitoneally. Peritoneal fluid culture negative. Peritoneal dialysis will be switched to hemodialysis Continue dialysis daily Dr. Acevedo follows her (3) CHF exacerbation Diastolic CHF in acute exacerbation There is a moderate pericardial effusion on recent echo. Status: Acute Problem Text: Heart failure with preserved ejection fraction Secondary to volume overload and noncompliance to medication Continue dialysis for fluid balance Continue home cardioprotective medication (4) Abdominal pain Resolved Status: Acute Problem Text: Abdominal CT was done in the [facility] and was negative for perforation, showed moderate ascites (5) Diabetes mellitus Status: Chronic Problem Text: Insulin sliding scale Diabetes diet (6) Anemia Status: Chronic Problem Text: Most likely anemia of chronic diseases secondary to end-stage renal diseases Iron panel, B12, folate She is getting Venofer and continues on the usual Aranesp. (7) Hyperthyroidism Problem Text: Secondary hyperparathyroidism. c/w Calcitriol Peritonitis in this patient with peritoneal dialysis Peritoneal fluid culture pending Patient received intra-peritoneal vancomycin and gentamicin Uremic pericarditis Secondary to noncompliance to dialysis Echo shows moderate pericardial effusion Hypertension Improved Secondary to volume overload in top of noncompliance to medications Continue home meds Most likely improve after fluid removal due to dialysis Hyperkalemia. Improved It was secondary to noncompliance with dialysis and with concomitant angiotensin-converting enzyme (CHAD) inhibitor use. VS,Fishbone, I+O VS, Fishbone, I+O Laboratory Tests 02/07/19 08:38 Vital Signs Date Time Temp Pulse Resp B/P (MAP) Pulse Ox O2 Delivery O2 Flow Rate FiO2 02/07/19 12:49 157/70 02/07/19 12:49 84 02/07/19 12:36 97.0 18 96 Room Air 02/07/19 08:00 2.0 I&O- Last 24 Hours up to 6 AM 02/07/19 06:00 Intake Total 5080 ml Output Total 9200 ml Balance -4120 ml MARIIA SHEIKH DO Feb 07, 2019 16:42
[2019-02-07 20:00] VITALS: BP 154/76
[2019-02-07] MEDS ORDERED: ONDANSETRON 4 MG TAB (S0181) PO PRN (21:00)
[2019-02-07] MEDS: DOXYCYCLINE HYCLATE 100 MG TAB PO SCH (21:20)
[2019-02-07] MEDS: ONDANSETRON 4MG/2ML VIAL (J2405) IV PRN (21:20)
[2019-02-07] MEDS: GENTAMICIN SULFATE 0.1% OINT 15 GM TOP SCH (21:21)
[2019-02-07] MEDS: ACETAMINOPHEN TAB 650MG DOSE (2X325MG) PO PRN (23:09)
[2019-02-08] VITALS: BP 150/70
[2019-02-08 04:00] VITALS: BP 140/64
[2019-02-08] MEDS: SLF 3 ML SYR IV SCH ×3 (06:08→21:17)
[2019-02-08] MEDS: LEVOTHYROXINE 100MCG TABLET (0.1MG) PO SCH (06:08)
[2019-02-08] MEDS: HumaLOG INSULIN (NovoLOG) PER UNIT SC SCH ×4 (07:27→20:39)
[2019-02-08] MEDS: (RENVELA) SEVELAMER **CARBONate** 800 MG TAB PO SCH ×3 (07:27→18:17)
[2019-02-08 08:48] LABS: BASO # 0.1 10^3/uL (0.0-0.2); BASO % 1.1 % (0.0-1.0); EOS # 0.1 10^3/uL (0.0-0.5); EOS % 1.7 % (0.0-3.0); HEMATOCRIT 27.3 % (36.0-47.0); HEMOGLOBIN 8.3 g/dl (12.0-15.5); LYMPH # 0.6 10^3/uL (1.5-5.0); LYMPH % 10.3 % (24.0-44.0); MEAN CORPUSCULAR HEMOGLOBIN 29.9 pg (27.0-33.0); MEAN CORPUSCULAR HGB CONC 30.4 g/dl (32.0-36.5); MEAN CORPUSCULAR VOLUME 98.2 fl (80.0-96.0); MONO # 0.8 10^3/uL (0.0-0.8); NEUTROPHILS # 3.9 10^3/uL (1.5-8.5); NEUTROPHILS % 72.3 % (36.0-66.0); PLATELET COUNT, AUTOMATED 119 10^3/uL (150-450); RED BLOOD COUNT 2.78 10^6/uL (4.00-5.40); WHITE BLOOD COUNT 5.3 10^3/uL (4.0-10.0)
[2019-02-08] MEDS: HEPARIN SOD (PORCINE) 5000 UNITS/ML VIAL SC SCH ×2 (09:00→21:17)
[2019-02-08] MEDS: LEVEMIR (INSULIN DETEMIR) 1 UNITS/0.01ML SC SCH ×2 (09:00→21:17)
[2019-02-08 09:16] LABS: CALCIUM LEVEL 8.5 MG/DL (8.5-10.1); CREATININE FOR GFR 6.14 MG/DL (0.55-1.30); GLOMERULAR FILTRATION RATE 7.8 (>58); MAGNESIUM LEVEL 1.7 MG/DL (1.8-2.4); POTASSIUM SERUM 4.2 MEQ/L (3.5-5.1)
[2019-02-08] MEDS: LISINOPRIL 10 MG TAB PO SCH (12:52)
[2019-02-08] MEDS: ISOSORBIDE MON. (IMDUR) 30 MG XR TAB PO SCH (12:52)
[2019-02-08] MEDS: FERROUS GLUCONATE 324 MG TAB PO SCH (12:53)
[2019-02-08] MEDS: CALCITRIOL 0.25 MCG CAP (S0169) PO SCH (12:53)
[2019-02-08] MEDS: DOXYCYCLINE HYCLATE 100 MG TAB PO SCH ×2 (12:53→21:15)
[2019-02-08] MEDS: METOPROLOL TART 25 MG TABLET PO SCH ×2 (12:53→21:16)
[2019-02-08] MEDS: OMEPRAZOLE 20 MG CAP PO SCH (12:54)
[2019-02-08] MEDS: cefTRIAXone SOD 1 GM in D5W MINI-BAG PLUS 50 ML IV SCH (12:54)
--- NOTE | 2019-02-08 15:37 | IPN ---
DATE: 02/08/2019 Ms. Trivedi is seen this morning during hemodialysis. She is lying in the bed without any acute distress. Her thigh graft is being used without any problem. The patient denies any dyspnea or chest pain. Her diarrhea has improved. PHYSICAL EXAMINATION: Temperature 99.6 degrees Fahrenheit, heart rate 84 per minute, respiratory rate 16 per minute, blood pressure 168/78 mm of mercury, and oxygen saturation 93%. Head is atraumatic. Neck is supple and without jugular venous distention (JVD) or thyroid enlargement. Heart sounds are regular, and pericardial friction rub is quite obvious. Lungs with diminished breath sounds at bases. Abdomen soft and nontender, and bowel sounds are normal. Extremities without any cyanosis or clubbing. Neurologically, she is awake, alert, and at her baseline mentation. Today's labs show WBC count 5.3, hemoglobin 8.3, and hematocrit 27.3. Sodium 139, potassium 4.2, CO2 of 29, BUN 16, and creatinine 6.14. Calcium is 8.5 and magnesium 1.7. PROBLEMS: 1. End-stage renal disease. The patient has been dialysis dependent and is being dialyzed today. She was on peritoneal dialysis at home, however, was quite noncompliant, due to which she has developed pericardial friction rub. I think that her gastrointestinal (GI) symptoms were also related to uremia. Now she has been receiving frequent dialysis without any heparin. Her symptoms have improved significantly. 2. Uremic pericarditis. The patient continues to have pericardial friction rub, and no heparin is being used during dialysis today. We anticipate improvement over next few days. At this point, we will continue with aggressive dialysis regimen. 3. Pneumonia. The patient remains on intravenous antibiotics, including ceftriaxone. She is also getting oral doxycycline 100 mg twice a day.
[2019-02-08 16:00] VITALS: BP 145/66
[2019-02-08] MEDS: ACETAMINOPHEN TAB 650MG DOSE (2X325MG) PO PRN ×2 (17:19→23:11)
--- NOTE | 2019-02-08 18:13 | IPNPDOC ---
Text Note Date of Service The patient was seen on 02/08/19. NOTE Subjective: No any acute events overnight. Patient complains of tinnitus Patient denies fever, chills, shortness of breath, palpitations. General Exam: Positive: Alert, Cooperative Eye Exam: Positive: PERRLA ENT Exam: Positive: Atraumatic Neck Exam: Positive: Supple; Moderate JVD Chest Exam: Positive: Rhonchi (at the base b/l) Heart Exam: Positive: Regular Rhythm, prominent pericardial rub Telemetry: Positive: Sinus Abdomen Exam: Positive: BS Hypoactive, The PD catheter exit site is clean and dressed. There is no peritoneal fluid in situ. Musculoskeletal: There is lower extremity edema. There is a graft present in the right side, which is presently in use. Extremity Exam: Negative: Clubbing, Cyanosis Skin Exam: Positive: Nl turgor and temperature Neuro Exam: Positive: Strength at 5/5 X4 ext, Cranial Nerves 3-12 NL Psych Exam: Positive: Mental status NL Assessment/Plan Patient is 58 years old female with past history of end-stage renal diseases currently on peritoneal dialysis, history of hemodialysis in the past with a functional right thigh arteriovenous (AV) graft, well known to nephrology service from multiple previous hospitalizations and from outpatient dialysis center. She presented to the hospital with a 1-day history of nausea, vomiting, decreased appetite, chills but no fever. She was transferred from [facility]. Patient stated that she had multiple episodes of vomiting associated with diarrhea. The last perito [place] dialysis was 5 days ago. Patient was diagnosed with right lung pneumonia, uremic pericarditis and CHF exacerbation. Problems (1) HCAP (healthcare-associated pneumonia) Status: Acute Problem Text: Patient has increased cough with greenish sputum Chest x-ray showed right lobe infiltrate doxycycline IV switched to by mouth, ceftriaxone reordered by supervisor wet room, peritoneal infusion of vancomycin and gentamicin discontinued given negative peritoneal culture and decreased level of leukocytes Continue inhalers (2) ESRD (end stage renal disease) Problem Text: Patient was volume overloaded, BNP significantly elevated Volume will be managed by dialysis Peritoneal fluid analysis significant for leukocytes 482, suggestive peritonitis. Patient received treatment with vancomycin and gentamicin intraperitoneally. Peritoneal fluid culture negative. Peritoneal dialysis will be switched to hemodialysis Continue dialysis daily Dr. Acevedo follows her (3) CHF exacerbation Diastolic CHF in acute exacerbation There is a moderate pericardial effusion on recent echo. Status: Acute Problem Text: Heart failure with preserved ejection fraction Secondary to volume overload and noncompliance to medication Continue dialysis for fluid balance Continue home cardioprotective medication (4) Abdominal pain Resolved Status: Acute Problem Text: Abdominal CT was done in the [facility] and was negative for perforation, showed moderate ascites (5) Diabetes mellitus Status: Chronic Problem Text: Insulin sliding scale Diabetes diet (6) Anemia Status: Chronic Problem Text: Most likely anemia of chronic diseases secondary to end-stage renal diseases Iron panel, B12, folate She is getting Venofer and continues on the usual Aranesp. (7) Hyperthyroidism Problem Text: Secondary hyperparathyroidism. c/w Calcitriol Peritonitis in this patient with peritoneal dialysis Peritoneal fluid culture pending Patient received intra-peritoneal vancomycin and gentamicin Uremic pericarditis Secondary to noncompliance to dialysis Echo shows moderate pericardial effusion Continue daily dialysis Hypertension Improved Secondary to volume overload in top of noncompliance to medications Continue home meds Most likely improve after fluid removal due to dialysis Hyperkalemia. Improved It was secondary to noncompliance with dialysis and with concomitant angiotensin-converting enzyme (CHAD) inhibitor use. Tinnitus Well described site effect of dialysis. Patients with end stage renal disease and dialysis are at greater risk for tinnitus than general population VS,[place], I+O VS, [place], I+O Laboratory Tests 02/08/19 08:30 Vital Signs Date Time Temp Pulse Resp B/P (MAP) Pulse Ox O2 Delivery O2 Flow Rate FiO2 02/08/19 12:53 84 167/78 02/08/19 04:00 99.6 16 93 Nasal Cannula 2.0 I&O- Last 24 Hours up to 6 AM 02/08/19 06:00 Intake Total 800 ml Output Total 2500 ml Balance -1700 ml MARIIA SHEIKH DO Feb 08, 2019 18:13
[2019-02-08 20:00] VITALS: BP 138/62
[2019-02-08] MEDS: GENTAMICIN SULFATE 0.1% OINT 15 GM TOP SCH (21:16)
[2019-02-09] VITALS (8 sets, daily range): BP systolic 116–142; BP diastolic 55–76
[2019-02-09] MEDS ORDERED: IBUPROFEN 400 MG TAB PO ONE (04:15)
[2019-02-09] MEDS: ACETAMINOPHEN TAB 650MG DOSE (2X325MG) PO PRN ×2 (04:20→20:42)
--- NOTE | 2019-02-09 05:25 | IPNPDOC ---
Text Note Date of Service The patient was seen on 02/09/19. NOTE Above patient's fever. She had not responded adequately to Tylenol treatment. On my assessment. Patient was alert, complaining of cough that was minimally productive. Denied any pain. Stated that she felt cold in her room. PE VITALS: See Below GENERAL APPEARANCE: Alert no acute distress. , Alert and conversant ENT: No JVD THORAX: Symmetrical. LUNGS: Clear to auscultation bilaterally. HEART: Normal S1, S2. No murmurs, no rubs, no gallops ABDOMEN: PD catheter in place EXTREMITIES: Moves all extremities equally. No gross deformities. PULSES: 2+ upper and lower extremity . Due to her fevers, and her previous episode of peritonitis, will start patient on Levaquin, as well as vancomycin, will DC patient's doxycycline. We'll continue ceftriaxone. Have ordered a UA, chest x-ray, sputum cultures, and respiratory panel. VS,Fishbone, I+O VS, Fishbone, I+O Laboratory Tests 02/08/19 08:30 Vital Signs Date Time Temp Pulse Resp B/P (MAP) Pulse Ox O2 Delivery O2 Flow Rate FiO2 02/09/19 04:00 101.5 87 18 140/76 (97) 95 Room Air 02/08/19 04:00 2.0 I&O- Last 24 Hours up to 6 AM 02/09/19 06:00 Intake Total 420 ml Output Total 2050 ml Balance -1630 ml CHRIS VELOZ DO Feb 09, 2019 05:25
--- NOTE | 2019-02-09 05:50 | PHACANCOPD ---
PHARMACY VANCOMYCIN DOSING Pt Demographics Demographics Patient Age:48 , Weight:66.000 , Gender: female Adjusted Body Weight Date: 02/09/19, Adjusted Body Weight: Kg Events Past 24 Hours Events Past 24 Hours: NO: Dialysis, Diuretic Therapy, Change in CrCl, Fever, Elevation in WBC, Pending Diagnostics, Pending Procedures, Other Vancomycin Vancomycin Target Ranges: 15-20 mcg/ml Vancomycin Load Y/N: Yes Load Dose Date Time Vancomycin Load Dose: 1000mg Date: 02-09-19 Time: 0600 Vancomycin Dose Date: 02/09/19. Current Vancomycin Dose: [int dosing] Intermittent Dosing?: Yes Labs Labs Item Value Date Time White Blood Count 5.3 10^3/uL 02/08/19 0830 Glomerular Filtration Rate 7.8 L 02/08/19 0830 Creatinine 6.14 MG/DL H 02/08/19 0830 Blood Urea Nitrogen 16 MG/DL # 02/08/19 0830 Vital Signs Label Value Date Time Patient Temperature 101.7 degrees F 02/09/19 0505 Temperature Source Oral 02/09/19 0505 Micro Microbiology 02/09/19 Respiratory Virus Panel (PCR) (FERNANDO), Received Pending 02/05/19 Acid Fast Stain, Received Pending 02/05/19 Mycobacterial Culture, Received Pending 02/05/19 Fungal Smear, Received Pending 02/05/19 Fungal Culture, Received Pending 02/05/19 Gram Stain - Final, Complete 02/05/19 Body Fluid Culture - Final, Complete 02/05/19 Anaerobic Culture - Final, Complete 02/05/19 Blood Culture - Preliminary, Resulted No Growth after 72 hours. All specime... Creatinine Clearance Date:02/09/19. Creatinine Clearance: [dialysis]. Pending Labs Random - in am Assessment and Plan Maintaining Current Dose?: Yes Reason for dose change: No Dose Change Pharmacist Note Pharmacist Note Date: 02/09/19. Pharmacist note:Will monitor and dose as needed. JOE [facility] Feb 09, 2019 05:50
[2019-02-09] MEDS ORDERED: VANCOMYCIN HCL 1,000 MG, VIAL MATE ADAPTER 1 EACH in D5W 250 ML IV ONE (06:00)
[2019-02-09] MEDS: SLF 3 ML SYR IV SCH ×3 (06:08→20:44)
[2019-02-09] MEDS: LEVOTHYROXINE 100MCG TABLET (0.1MG) PO SCH (06:08)
--- NOTE | 2019-02-09 06:16 | REPVR ---
PROCEDURE INFORMATION: Exam: XR Chest, 1 View Exam date and time: 02/09/2019 5:37 AM Clinical history: 48 years old, female; Other: Cough TECHNIQUE: Imaging protocol: XR of the chest Views: 1 view. COMPARISON: CR Chest, 2 view PA, Lat 02/05/2019 5:06 PM FINDINGS: Lungs: Unremarkable. No consolidation. Pleural space: There is improved aeration of the right lower lobe with decreasing effusion. Heart/Mediastinum: The heart is enlarged. Bones/joints: Unremarkable. IMPRESSION: 1. Interval decrease in right-sided pleural effusion with near resolution of, with mild residual, right basilar infiltrates. 2. Cardiomegaly. Electronically signed by: Pavel Lam On 02/09/2019 06:15:33 AM
[2019-02-09] MEDS ORDERED: VANCOMYCIN INTERMITTENT/PULSE DOSING BY CLINICAL PHARMACIST PER DOSING PROTOCOL XX SCH (07:30)
[2019-02-09] MEDS: (RENVELA) SEVELAMER **CARBONate** 800 MG TAB PO SCH ×3 (07:59→18:00)
[2019-02-09] MEDS: HumaLOG INSULIN (NovoLOG) PER UNIT SC SCH ×4 (07:59→20:16)
[2019-02-09] MEDS ORDERED: LevoFLOXacin IV 500 MG in IV 1 EA IV ONE (08:00)
[2019-02-09] MEDS ORDERED: VITAMIN D 50,000 UNITS CAPSULE (ERGOCALCIFEROL 1.25MG) PO SCH (09:00)
[2019-02-09] MEDS: LEVEMIR (INSULIN DETEMIR) 1 UNITS/0.01ML SC SCH ×2 (09:00→20:17)
[2019-02-09] MEDS: CALCITRIOL 0.25 MCG CAP (S0169) PO SCH (10:18)
[2019-02-09] MEDS: HEPARIN SOD (PORCINE) 5000 UNITS/ML VIAL SC SCH ×2 (10:18→20:43)
[2019-02-09] MEDS: cefTRIAXone SOD 1 GM in D5W MINI-BAG PLUS 50 ML IV SCH (10:18)
[2019-02-09] MEDS: FERROUS GLUCONATE 324 MG TAB PO SCH (10:19)
[2019-02-09] MEDS: OMEPRAZOLE 20 MG CAP PO SCH (10:19)
[2019-02-09] MEDS: ISOSORBIDE MON. (IMDUR) 30 MG XR TAB PO SCH (12:12)
[2019-02-09] MEDS: METOPROLOL TART 25 MG TABLET PO SCH ×2 (12:14→20:43)
[2019-02-09] MEDS: LISINOPRIL 10 MG TAB PO SCH (12:14)
[2019-02-09 13:59] LABS: HEMATOCRIT 31.4 % (36.0-47.0); HEMOGLOBIN 9.4 g/dl (12.0-15.5); MEAN CORPUSCULAR HEMOGLOBIN 29.1 pg (27.0-33.0); MEAN CORPUSCULAR HGB CONC 29.9 g/dl (32.0-36.5); MEAN CORPUSCULAR VOLUME 97.2 fl (80.0-96.0); PLATELET COUNT, AUTOMATED 128 10^3/uL (150-450); RED BLOOD COUNT 3.23 10^6/uL (4.00-5.40); WHITE BLOOD COUNT 5.1 10^3/uL (4.0-10.0)
[2019-02-09 14:03] LABS: CALCIUM LEVEL 8.8 MG/DL (8.5-10.1); CREATININE FOR GFR 5.4 MG/DL (0.55-1.30); MAGNESIUM LEVEL 1.8 MG/DL (1.8-2.4); POTASSIUM SERUM 3.9 MEQ/L (3.5-5.1)
--- NOTE | 2019-02-09 18:36 | IPNPDOC ---
Text Note Date of Service The patient was seen on 02/09/19. NOTE Subjective: Patient complains of fever, subsided after Tylenol. Patient denies fever, chills, shortness of breath, palpitations. General Exam: Positive: Alert, Cooperative Eye Exam: Positive: PERRLA ENT Exam: Positive: Atraumatic Neck Exam: Positive: Supple; Moderate JVD Chest Exam: Positive: Rhonchi (at the base b/l) Heart Exam: Positive: Regular Rhythm, prominent pericardial rub Telemetry: Positive: Sinus Abdomen Exam: Positive: BS Hypoactive, The PD catheter exit site is clean and dressed. There is no peritoneal fluid in situ. Musculoskeletal: There is lower extremity edema. There is a graft present in the right side, which is presently in use. Extremity Exam: Negative: Clubbing, Cyanosis Skin Exam: Positive: Nl turgor and temperature Neuro Exam: Positive: Strength at 5/5 X4 ext, Cranial Nerves 3-12 NL Psych Exam: Positive: Mental status NL Assessment/Plan Patient is 58 years old female with past history of end-stage renal diseases c urrently on peritoneal dialysis, history of hemodialysis in the past with a functional right thigh arteriovenous (AV) graft, well known to nephrology service from multiple previous hospitalizations and from outpatient dialysis center. She presented to the hospital with a 1-day history of nausea, vomiting, decreased appetite, chills but no fever. She was transferred from [facility]. Patient stated that she had multiple episodes of vomiting associated with diarrhea. The last peritoneal dialysis was 5 days ago. Patient was diagnosed with right lung pneumonia, uremic pericarditis and CHF exacerbation. Problems (1) HCAP (healthcare-associated pneumonia) Resolved. Chest x-ray showed right lobe infiltrate on the admission Problem Text: Patient had increased cough with greenish sputum. Today, 02/09/19 patient was tested positive for parainfluenza virus. Most likely the spiking fever could be attributed to viral infection. We will repeat chest x-ray Continue levofloxacin by mouth peritoneal infusion of vancomycin and gentamicin discontinued given negative peritoneal culture and decreased level of leukocytes Continue inhalers (2) ESRD (end stage renal disease) Problem Text: Patient was volume overloaded, BNP significantly elevated Volume will be managed by dialysis Peritoneal fluid analysis significant for leukocytes 482, suggestive peritonitis. Patient received treatment with vancomycin and gentamicin intraperitoneally. Peritoneal fluid culture negative. Leukocytes count decreased dramatically. Peritoneal dialysis switched to hemodialysis Dr. Acevedo follows her (3) CHF exacerbation. Heart failure with preserved ejection fraction Diastolic CHF in acute exacerbation There is a moderate pericardial effusion on recent echo. Secondary to volume overload and noncompliance to medication Continue dialysis for fluid balance Continue home cardioprotective medication (4) Abdominal pain Resolved Status: Acute Problem Text: Abdominal CT was done in the [facility] and was negative for perforation, showed moderate ascites (5) Diabetes mellitus Status: Chronic Problem Text: Insulin sliding scale Diabetes diet (6) Anemia Status: Chronic Problem Text: Most likely anemia of chronic diseases secondary to end-stage renal diseases She is getting Venofer and continues on the usual Aranesp. (7) Hyperthyroidism Problem Text: Secondary hyperparathyroidism. c/w Calcitriol Peritonitis in this patient with peritoneal dialysis Peritoneal fluid culture pending Patient received intra-peritoneal vancomycin and gentamicin. Resolved Uremic pericarditis Secondary to noncompliance to dialysis Echo shows moderate pericardial effusion Continue daily dialysis Hypertension Improved Secondary to volume overload in top of noncompliance to medications Continue home meds Hyperkalemia. Improved It was secondary to noncompliance with dialysis and with concomitant angiotensin-converting enzyme (CHAD) inhibitor use. Tinnitus Well described site effect of dialysis. Patients with end stage renal disease and dialysis are at greater risk for tinnitus than general population Fever Secondary to Parainfluenza viral infection Tylenol when necessary VS,Fishbone, I+O VS, Fishbone, I+O Laboratory Tests 02/09/19 13:36 Vital Signs Date Time Temp Pulse Resp B/P (MAP) Pulse Ox O2 Delivery O2 Flow Rate FiO2 02/09/19 16:00 96.9 73 18 124/63 (83) 93 Room Air 02/08/19 04:00 2.0 I&O- Last 24 Hours up to 6 AM 02/09/19 06:00 Intake Total 420 ml Output Total 2050 ml Balance -1630 ml MARIIA SHEIKH DO Feb 09, 2019 18:36
--- NOTE | 2019-02-09 20:01 | IPN ---
DATE: 02/09/2019 Ms. Trivedi is seen this afternoon on her bedside. She is feeling well and denies any fever, chills, nausea, vomiting, dyspnea or chest pain. She is sitting at the edge of bed at the time of my visit and eating her lunch. She was dialyzed yesterday which she tolerated very well. Her peritoneal dialysis is currently on hold. PHYSICAL EXAMINATION: Temperature 97.0 degrees Fahrenheit, heart rate 68 per minute and respiratory rate 18 per minute. Blood pressure 124/63 mmHg and oxygen saturation 95% on room air. Head is atraumatic. Neck is supple and without JVD or thyroid enlargement. Pupils equal and reactive to light and sclera is anicteric. There is no oral thrush or ulcers. Heart sounds are regular with a pericardial friction rub and lungs sound clear to auscultation. Abdomen soft and nontender. Bowel sounds are normal. Extremities without any cyanosis or clubbing. Right thigh AV graft is patent. Neurologically she is awake, alert and oriented times three. Today's labs show WBC count 5.1, hemoglobin 9.4 and hematocrit 31.4. Platelets 128. Sodium 135, potassium 3.9, CO2 28, BUN 13 and creatinine 5.4. Glucose 105 and calcium 8.8. PROBLEMS: 1. End-stage renal disease. The patient was dialyzed yesterday with hemodialysis and will have next hemodialysis tomorrow. Her volume status is very well compensated. Peritoneal dialysis is currently on hold. 2. Pericarditis, most likely related to lack of dialysis as she was not doing her peritoneal dialysis at home. Her pericardial friction rub has lasted longer than we expected. She is very well dialyzed now and will be dialyzed again tomorrow. I will hold off on the use of any steroids or NSAIDs at this point. 3. Anemia. Her anemia is gradually improving and she will continue to receive Aranesp once a week. 4. Hypertension. Blood pressure is well-controlled on current medications and no changes are being made. 5. Diabetes. Her diabetes seems reasonably well-controlled on current regimen and no changes are being made today.
[2019-02-09] MEDS: GENTAMICIN SULFATE 0.1% OINT 15 GM TOP SCH (20:43)
[2019-02-10] VITALS (28 sets, daily range): BP systolic 148–210; BP diastolic 60–96; O2SAT 90–100
[2019-02-10] MEDS: ACETAMINOPHEN TAB 650MG DOSE (2X325MG) PO PRN ×2 (00:44→16:12)
[2019-02-10 05:29] LABS: BASO % 0.7 % (0.0-1.0); EOS # 0.2 10^3/uL (0.0-0.5); EOS % 3.7 % (0.0-3.0); HEMATOCRIT 26.6 % (36.0-47.0); HEMOGLOBIN 7.8 g/dl (12.0-15.5); LYMPH # 0.7 10^3/uL (1.5-5.0); LYMPH % 11.6 % (24.0-44.0); MEAN CORPUSCULAR HEMOGLOBIN 28.9 pg (27.0-33.0); MEAN CORPUSCULAR HGB CONC 29.3 g/dl (32.0-36.5); MEAN CORPUSCULAR VOLUME 98.5 fl (80.0-96.0); MONO # 0.6 10^3/uL (0.0-0.8); MONO % 10.2 % (0.0-5.0); NEUTROPHILS # 4.4 10^3/uL (1.5-8.5); NEUTROPHILS % 73.1 % (36.0-66.0); PLATELET COUNT, AUTOMATED 108 10^3/uL (150-450)
[2019-02-10 05:53] LABS: CALCIUM LEVEL 8.4 MG/DL (8.5-10.1); CREATININE FOR GFR 6.63 MG/DL (0.55-1.30); GLOMERULAR FILTRATION RATE 7.1 (>58); MAGNESIUM LEVEL 1.7 MG/DL (1.8-2.4); POTASSIUM SERUM 4.1 MEQ/L (3.5-5.1)
[2019-02-10] MEDS: LEVOTHYROXINE 100MCG TABLET (0.1MG) PO SCH (06:15)
[2019-02-10] MEDS: FERROUS GLUCONATE 324 MG TAB PO SCH (06:15)
[2019-02-10] MEDS: OMEPRAZOLE 20 MG CAP PO SCH (06:15)
[2019-02-10] MEDS: SLF 3 ML SYR IV SCH ×3 (06:17→21:10)
[2019-02-10] MEDS: CALCITRIOL 0.25 MCG CAP (S0169) PO SCH (06:17)
[2019-02-10] MEDS: HumaLOG INSULIN (NovoLOG) PER UNIT SC SCH ×4 (07:30→21:00)
--- NOTE | 2019-02-10 07:49 | REP ---
Clinical: Pneumonia. Technique: Single portable upright view of the chest. Comparison: 02/09/2019, 02/05/2019. Findings: Stable cardiomegaly. Subtle right lower lobe infiltrate is improved and nearly completely resolved. No new consolidation, effusion, or pneumothorax. Skeletal structures intact. Impression: Near complete resolution to the right lower lobe infiltrate. Electronically Signed by Bin Liang MD 02/10/2019 07:40 A
[2019-02-10] MEDS: (RENVELA) SEVELAMER **CARBONate** 800 MG TAB PO SCH ×3 (08:00→18:10)
[2019-02-10] MEDS: LEVEMIR (INSULIN DETEMIR) 1 UNITS/0.01ML SC SCH ×2 (09:00→21:00)
[2019-02-10] MEDS: HEPARIN SOD (PORCINE) 5000 UNITS/ML VIAL SC SCH ×2 (09:00→21:11)
[2019-02-10 09:46] LABS: HEMATOCRIT 25.7 % (36.0-47.0); HEMOGLOBIN 7.8 g/dl (12.0-15.5); MEAN CORPUSCULAR HEMOGLOBIN 29.5 pg (27.0-33.0); MEAN CORPUSCULAR HGB CONC 30.4 g/dl (32.0-36.5); MEAN CORPUSCULAR VOLUME 97.3 fl (80.0-96.0); PLATELET COUNT, AUTOMATED 116 10^3/uL (150-450); RED BLOOD COUNT 2.64 10^6/uL (4.00-5.40); WHITE BLOOD COUNT 7.2 10^3/uL (4.0-10.0)
--- NOTE | 2019-02-10 11:53 | IPNPDOC ---
Subjective CC/HPI The patient is a 48-year-old female admitted with a reason for visit of Nausea,Vomiting,Diarhea. Events since last encounter Patient seen this morning in the dialysis units she was getting dialysis. She reports she continues to have multiple bowel movements overnight. She otherwise has no acute complaints including nausea, vomiting, or fevers/chills. Objective Physical Examination General Exam: Alert, Cooperative, No Acute Distress EYE EXAM: EOMI ENT EXAM: Atraumatic, Pharynx Normal Chest Exam: Clear to auscultation, Normal air movement Heart Exam: Rate Normal, Normal S1, Normal S2, Murmurs (dialysis bruit heard on auscultation), Rubs (Significantly improved from yesterday.) ABDOMEN EXAM: Normal bowel sounds Extremity Exam: No: Edema Skin Exam: Nl turgor and temperature Vital Signs/I&O Vital Signs Date Time Temp Pulse Resp B/P (MAP) Pulse Ox O2 Delivery O2 Flow Rate FiO2 02/10/19 11:00 97.3 78 16 189/80 97 Nasal Cannula 2.0 I&O- Last 24 Hours up to 6 AM 02/10/19 06:00 Intake Total 770 ml Output Total 0 ml Balance 770 ml Laboratory Data Labs 24H Laboratory Tests 2 02/09/19 13:36: Nucleated Red Blood Cells % (auto) 0.0, Anion Gap 6L, Glomerular Filtration Rate 9.0L, Calcium Level 8.8, Magnesium Level 1.8 02/09/19 17:11: Bedside Glucose (Misc Panel) 92 02/09/19 19:57: Bedside Glucose (Misc Panel) 107H 02/10/19 04:54: Nucleated Red Blood Cells % (auto) 0.0, Anion Gap 7L, Glomerular Filtration Rate 7.1L, Calcium Level 8.4L, Magnesium Level 1.7L, Immature Granulocyte % (Auto) 0.7, Neutrophils (%) (Auto) 73.1H, Lymphocytes (%) (Auto) 11.6L, Monocytes (%) (Auto) 10.2H, Eosinophils (%) (Auto) 3.7H, Basophils (%) (Auto) 0.7, Neutrophils # (Auto) 4.4, Lymphocytes # (Auto) 0.7L, Monocytes # (Auto) 0.6, Eosinophils # (Auto) 0.2, Basophils # (Auto) 0.0 02/10/19 09:08: Nucleated Red Blood Cells % (auto) 0.0 CBC/BMP Laboratory Tests 02/09/19 13:36 02/10/19 04:54 02/10/19 09:08 FSBS Laboratory Tests Test 02/09/19 17:11 02/09/19 19:57 Range/Units Bedside Glucose (Misc Panel) 92 107 70-105 MG/DL Current Medications See EMR Allergies Coded Allergies: Penicillins (Verified Allergy, Unknown, UNKNOWN CHILDHOOD REACTION, 09/11/18) PER [facility] RECORDS PT HAS RECEIVED MEROPENEM AND CEFEPIME IN THE PAST Assessment/Plan Date Seen The patient was seen on 02/10/19 at 11:40. Plan / VTE VTE Prophylaxis Ordered?: Yes Plan Orders past 48 Hours See EMR Plan Text #. End-stage renal disease. Patient dialyzed yesterday and received dialysis this morning. Volume status remains well compensated. Continue holding peritoneal dialysis. #. Pericarditis Most likely related to noncompliance with peritoneal dialysis at home. Her pericardial friction rub is significantly improved from yesterday. Continue to hold use of steroids or NSAIDs. #. Diarrhea C Diff culture PCR ordered. #. Anemia. Patient's hemoglobin dropped down to 7.8 today with repeat showing same. Will transfuse 2 units PRBCs today with dialysis. Continue Aranesp once a week. #. Hypertension. Blood pressure is well-controlled on current medications and no changes are being made. #. Diabetes. Continue current regimen. GME ATTESTATION GME ATTESTATION My faculty preceptor for this patient encounter was physically present during the encounter and was fully available. All aspects of the patient interview, examination, medical decision making process, and medical care plan development were reviewed and approved by the faculty preceptor. The faculty preceptor is aware and concurs with the plan as stated in the body of this note and will attest to such by his/her cosignature. MICHAEL DAVISON DO Feb 10, 2019 11:53
[2019-02-10] MEDS: METOPROLOL TART 25 MG TABLET PO SCH ×2 (13:52→21:11)
[2019-02-10] MEDS: ISOSORBIDE MON. (IMDUR) 30 MG XR TAB PO SCH (13:52)
[2019-02-10] MEDS: LISINOPRIL 10 MG TAB PO SCH (13:53)
[2019-02-10] MEDS: **hydrALAZINE** 10 MG TAB PO PRN (13:54)
[2019-02-10] MEDS ORDERED: **hydrALAZINE** 10 MG TAB PO PRN (16:15)
--- NOTE | 2019-02-10 16:51 | IPNPDOC ---
Text Note Date of Service The patient was seen on 02/10/19. NOTE Subjective: Patient continues to have spiking fever, alleviated by Tylenol. General Exam: Positive: Alert, Cooperative Eye Exam: Positive: PERRLA ENT Exam: Positive: Atraumatic Neck Exam: Positive: Supple; Moderate JVD Chest Exam: CTA Heart Exam: Positive: Regular Rhythm, prominent pericardial rub Telemetry: Positive: Sinus Abdomen Exam: Positive: BS Hypoactive, The PD catheter exit site is clean and dressed. There is no peritoneal fluid in situ. Musculoskeletal: There is lower extremity edema. There is a graft present in the right side, which is presently in use. Extremity Exam: Negative: Clubbing, Cyanosis Skin Exam: Positive: Nl turgor and temperature Neuro Exam: Positive: Strength at 5/5 X4 ext, Cranial Nerves 3-12 NL Psych Exam: Positive: Mental status NL Assessment/Plan Patient is 58 years old female with past history of end-stage renal diseases currently on peritoneal dialysis, history of hemodialysis in the past with a functional right thigh arteriovenous (AV) graft, well known to nephrology service from multiple previous hospitalizations and from outpatient dialysis center. She presented to the hospital with a 1-day history of nausea, vomiting, decreased appetite, chills but no fever. She was transferred from [facility]. Patient stated that she had multiple episodes of vomiting associated with diarrhea. Patient was noncompliant to peritoneal dialysis. Patient was diagnosed with right lung pneumonia, uremic pericarditis and CHF exacerbation. Patient received treatment with daily dialysis. Patient received treatment with broad-spectrum antibiotics for peritonitis and PNA with positive effect. Improved. Antibiotic therapy was stopped. 02/09/19 patient was tested positive for parainfluenza virus. Continue supportive care Problems (1) HCAP (healthcare-associated pneumonia) Resolved. Chest x-ray showed right lobe infiltrate on the admission Problem Text: Patient had increased cough with greenish sputum.02/09/19 patient was tested positive for parainfluenza virus. Most likely the spiking fever could be attributed to viral infection. Repeated x-ray negative for lungs infiltrate Continue inhalers (2) ESRD (end stage renal disease) Problem Text: Patient was volume overloaded, BNP significantly elevated Volume will be managed by dialysis Peritoneal fluid analysis significant for leukocytes 482, suggestive peritonitis. Patient received treatment with vancomycin and gentamicin intraperitoneally. Peritoneal fluid culture negative. Leukocytes count decreased dramatically. Peritoneal dialysis switched to hemodialysis Dr. Acevedo follows her (3) CHF exacerbation. Heart failure with preserved ejection fraction Diastolic CHF in acute exacerbation There is a moderate pericardial effusion on recent echo. Secondary to volume overload and noncompliance to medication Continue dialysis for fluid balance Continue home cardioprotective medication (4) Abdominal pain Resolved Status: Acute Problem Text: Abdominal CT was done in the [facility] and was negative for perforation, showed moderate ascites (5) Diabetes mellitus Status: Chronic Problem Text: Insulin sliding scale Diabetes diet (6) Anemia Status: Chronic Problem Text: Most likely anemia of chronic diseases secondary to end-stage renal diseases She is getting Venofer and continues on the usual Aranesp. (7) Hyperthyroidism Problem Text: Secondary hyperparathyroidism. c/w Calcitriol Peritonitis with peritoneal dialysis Peritoneal fluid culture pending Patient received intra-peritoneal vancomycin and gentamicin. Resolved Uremic pericarditis Secondary to noncompliance to dialysis Echo shows moderate pericardial effusion Continue daily dialysis Hypertension Secondary to volume overload in top of noncompliance to medications Continue home meds Hyperkalemia. Improved It was secondary to noncompliance with dialysis and with concomitant angiotensin-converting enzyme (CHAD) inhibitor use. Tinnitus Well described site effect of dialysis. Patients with end stage renal disease and dialysis are at greater risk for tinnitus than general population Fever Secondary to Parainfluenza viral infection Tylenol when necessary VS,Fishbone, I+O VS, Fishbone, I+O Laboratory Tests 02/10/19 04:54 02/10/19 09:08 Vital Signs Date Time Temp Pulse Resp B/P (MAP) Pulse Ox O2 Delivery O2 Flow Rate FiO2 02/10/19 16:00 99.5 60 18 178/66 (103) 99 Nasal Cannula 2.0 I&O- Last 24 Hours up to 6 AM 02/10/19 06:00 Intake Total 770 ml Output Total 0 ml Balance 770 ml MARIIA SHEIKH DO Feb 10, 2019 16:51
[2019-02-10] MEDS ORDERED: LevoFLOXacin 500 MG TABLET PO SCH (18:00)
[2019-02-10] MEDS: GENTAMICIN SULFATE 0.1% OINT 15 GM TOP SCH (21:11)
[2019-02-11] VITALS (11 sets, daily range): BP systolic 140–178; BP diastolic 68–82; O2SAT 89–99
[2019-02-11] MEDS: SLF 3 ML SYR IV SCH ×3 (05:22→20:42)
[2019-02-11] MEDS: LEVOTHYROXINE 100MCG TABLET (0.1MG) PO SCH (05:29)
[2019-02-11 06:09] LABS: BASO % 0.5 % (0.0-1.0); EOS # 0.1 10^3/uL (0.0-0.5); EOS % 0.8 % (0.0-3.0); HEMATOCRIT 32.7 % (36.0-47.0); LYMPH # 0.9 10^3/uL (1.5-5.0); LYMPH % 13.7 % (24.0-44.0); MEAN CORPUSCULAR HGB CONC 31.2 g/dl (32.0-36.5); MEAN CORPUSCULAR VOLUME 96.2 fl (80.0-96.0); MONO # 0.8 10^3/uL (0.0-0.8); MONO % 11.9 % (0.0-5.0); NEUTROPHILS # 4.7 10^3/uL (1.5-8.5); NEUTROPHILS % 72.9 % (36.0-66.0); PLATELET COUNT, AUTOMATED 103 10^3/uL (150-450); WHITE BLOOD COUNT 6.4 10^3/uL (4.0-10.0)
[2019-02-11 06:10] LABS: HEMOGLOBIN 10.2 g/dl (12.0-15.5)
[2019-02-11 06:29] LABS: CALCIUM LEVEL 8.8 MG/DL (8.5-10.1); CREATININE FOR GFR 4.22 MG/DL (0.55-1.30); MAGNESIUM LEVEL 1.7 MG/DL (1.8-2.4); POTASSIUM SERUM 4.1 MEQ/L (3.5-5.1)
[2019-02-11] MEDS ORDERED: LevoFLOXacin IV 250 MG in IV 1 EA IV SCH (08:00)
[2019-02-11] MEDS: (RENVELA) SEVELAMER **CARBONate** 800 MG TAB PO SCH ×3 (09:07→17:33)
[2019-02-11] MEDS: OMEPRAZOLE 20 MG CAP PO SCH (09:07)
[2019-02-11] MEDS: LISINOPRIL 20 MG TAB PO SCH (09:08)
[2019-02-11] MEDS: HEPARIN SOD (PORCINE) 5000 UNITS/ML VIAL SC SCH ×2 (09:08→20:42)
[2019-02-11] MEDS: ISOSORBIDE MON. (IMDUR) 30 MG XR TAB PO SCH (09:08)
[2019-02-11] MEDS: METOPROLOL TART 25 MG TABLET PO SCH ×2 (09:09→20:42)
[2019-02-11] MEDS: FERROUS GLUCONATE 324 MG TAB PO SCH (09:09)
[2019-02-11] MEDS: CALCITRIOL 0.25 MCG CAP (S0169) PO SCH (09:09)
[2019-02-11] MEDS: LEVEMIR (INSULIN DETEMIR) 1 UNITS/0.01ML SC SCH ×2 (09:10→20:41)
[2019-02-11] MEDS: HumaLOG INSULIN (NovoLOG) PER UNIT SC SCH ×4 (09:10→20:41)
[2019-02-11] MEDS ORDERED: HEPARIN SOD (PORCINE) 5000 UNITS/ML VIAL IP ONE (11:00)
--- NOTE | 2019-02-11 13:05 | IPN ---
DATE: 02/11/2019 Ms. Trivedi is seen this morning on her bedside. She is sitting in the chair working with her incentive spirometry. She is feeling better and denies any nausea, vomiting or diarrhea. She has no dyspnea or chest pain. PHYSICAL EXAMINATION: Temperature 97 degrees Fahrenheit, heart rate 70 per minute and respiratory rate 18 per minute. Blood pressure 154/68 mmHg and oxygen saturation 98% on room air. Head is atraumatic. Neck is supple and without JVD or thyroid enlargement. Heart sounds are regular and lungs sound clear to auscultation. There is no pericardial friction rub present anymore on her heart auscultation. Abdomen soft and nontender and bowel sounds are normal. Peritoneal dialysis catheter is intact. Extremities have no cyanosis or clubbing. Neurologically she is awake, alert and at her baseline mentation. She has a hemodialysis graft in her right thigh, which is patent. Today's labs show WBC count 6.4, hemoglobin 10.2 and hematocrit 32.7. Sodium 139, potassium 4.1, CO2 28, BUN 12 and creatinine 4.22. PROBLEMS: 1. End-stage renal disease. The patient has been switched to hemodialysis due to pericarditis, which has now improved. I am going to switch her back to peritoneal dialysis and we will perform five exchanges of peritoneal dialysis with 2 liter bath. Will use 2.5% solution. 1000 units of heparin will be added to first exchange in order to ensure no buildup of fibrin. 2. Anemia. Her anemia was worse and she received 2 units of packed RBCs yesterday during dialysis. Anemia has now improved and she will continue with Aranesp once a week. 3. Pericarditis. Her pericardial friction rub has resolved and the patient has no symptoms. She has been aggressively dialyzed with hemodialysis over last several days. Now we are going to switch her to peritoneal dialysis. The patient understands the need for compliance with her dialysis treatment. 4. Hypertension. Blood pressure is somewhat high now and I am increasing her lisinopril dose to 20 mg daily. She will continue with other meds as previously. DISPOSITION: From a renal standpoint, the patient is likely to be ready for discharge in next 24 hours.
--- NOTE | 2019-02-11 13:43 | IPNPDOC ---
Text Note Date of Service The patient was seen on 02/11/19. NOTE Subjective: -Afebrile over the last 24h -Levaquin was Dc'd yesterday morning -Was noted to have +Paraflu on respiratory panel -No fever, chills, N/V/D -No issues overnight -Eager to be discharged home so that she can make it to her renal transplant evaluation appointment in [place] on Sunday. General Exam: Alert, Cooperative Eye Exam: PERRLA ENT Exam: Atraumatic Neck Exam: Supple, no JVD noted Chest Exam: CTAB Heart Exam: Regular Rhythm, 2/6 systolic murmur with no evidence of previously noted rub Telemetry: No significant ectopy Abdomen Exam: hypoactive bowel sounds, PD catheter is clean, non erythematous with a dressing that is c/d/i. There is no peritoneal fluid in situ. Musculoskeletal: There is no lower extremity edema, with fistula with palpable thrill on right side. Extremity Exam: WWP, no edema, 2+ DP pulses Skin Exam: Normal turgor and temperature Neuro Exam: Strength at 5/5 X4 ext, Cranial Nerves 3-12 WNL Psych Exam: Mental status WNL Assessment/Plan 58 years old W with ESRD non compliant on peritoneal dialysis, with prior history of HD with a functional right thigh AV fistula, well known to nephrology service who presented to the hospital with a 1-day history of nausea, vomiting, decreased appetite, chills without a fever and transferred from [facility] in the setting of noncompliance with her peritoneal dialysis and diagnosed with right lung pneumonia, uremic pericarditis and CHF exacerbation. She has been receiving tr eatment with daily dialysis, antibiotics for peritonitis and PNA with good effect that were stopped on 02/09/19 after she was noted to be parainfluenza virus positive and at this time continuing supportive care. Plan Pneumonia: Resolved. -Patient had increased cough with greenish sputum with chest x-ray that showed right lobe infiltrate on the admission, and therefore started on antibiotics. -On 02/09/19 patient tested positive for parainfluenza virus. -Had persistent fevers until 02/10 early AM, most likely due to the viral infection. Repeated x-ray negative for lungs infiltrate -Continue inhalers ESRD -With evidence of volume overload on initial exam with +JVD, LE edema and elevated BNP. Exam now much improved -Volume has been managed by HD with nephrology onboard -Peritoneal fluid analysis significant for leukocytes 482, suggestive peritonitis. Patient received treatment with vancomycin and gentamicin intraperitoneally. Peritoneal fluid culture negative. Leukocytes count decreased dramatically. -Peritoneal dialysis switched to hemodialysis on admission, per Dr. Acevedo, will resume PD today with plan for discharge home tomorrow. -Nephrology onboard, appreciate recs CHF exacerbation. Heart failure with preserved ejection fraction with acute exacerbation in the setting of PD non compliance -There is a moderate pericardial effusion on recent echo -With evidence of volume overload on initial exam with +JVD, LE edema and elevated BNP. -Exam now much improved -Continue dialysis for volume optimization per nephrology -Continue home cardioprotective medication Abdominal pain: Resolved -Abdominal CT was done in the [facility] and was negative for perforation, showed moderate ascites and initial peritoneal fluid c/f peritonitis, however resolved. -s/p empiric antibiotics Peritonitis with peritoneal dialysis -Peritoneal fluid culture pending, negative to date -Patient received intra-peritoneal vancomycin and gentamicin. Resolved Uremic pericarditis -Secondary to noncompliance to dialysis -Echo shows moderate pericardial effusion -Continue dialysis per nephrology recs Diabetes mellitus -Insulin sliding scale -Diabetes diet Chronic AOCI secondary to end-stage renal diseases -Continue Venofer and continues on the usual Aranesp. Secondary Hyperthyroidism -c/w Calcitriol Hypertension -Secondary to volume overload as well as medication noncompliance -Continue home meds Hyperkalemia: resolved -Was secondary to noncompliance with dialysis concomitant Tinnitus -Well described site effect of dialysis. -Patients with end stage renal disease and dialysis are at greater risk for tinnitus than general population Fever: no fever in the last 24h -Secondary to Parainfluenza viral infection -Tylenol PRN DVT prophylaxis: heparin 5000U Q12H VS,Fishbone, I+O VS, Fishbone, I+O Laboratory Tests 02/10/19 09:08 02/11/19 05:24 Vital Signs Date Time Temp Pulse Resp B/P (MAP) Pulse Ox O2 Delivery O2 Flow Rate FiO2 02/11/19 04:00 99.5 79 16 178/80 (112) 100 Nasal Cannula 2.0 I&O- Last 24 Hours up to 6 AM 02/11/19 06:00 Intake Total 810 ml Output Total 2000 ml Balance -1190 ml LILLY SCHROEDER MD Feb 11, 2019 07:59
[2019-02-11] MEDS: GENTAMICIN SULFATE 0.1% OINT 15 GM TOP SCH (20:42)
[2019-02-12 03:08] VITALS: BP 156/71
[2019-02-12 06:00] VITALS: BP 130/61
[2019-02-12] MEDS: SLF 3 ML SYR IV SCH (06:01)
[2019-02-12] MEDS: LEVOTHYROXINE 100MCG TABLET (0.1MG) PO SCH (06:01)
[2019-02-12 06:09] LABS: BASO # 0.1 10^3/uL (0.0-0.2); BASO % 0.9 % (0.0-1.0); EOS # 0.3 10^3/uL (0.0-0.5); EOS % 4.3 % (0.0-3.0); HEMATOCRIT 32.9 % (36.0-47.0); LYMPH # 1.2 10^3/uL (1.5-5.0); LYMPH % 16.6 % (24.0-44.0); MEAN CORPUSCULAR HEMOGLOBIN 29.2 pg (27.0-33.0); MEAN CORPUSCULAR HGB CONC 30.4 g/dl (32.0-36.5); MEAN CORPUSCULAR VOLUME 95.9 fl (80.0-96.0); MONO # 0.8 10^3/uL (0.0-0.8); NEUTROPHILS # 4.6 10^3/uL (1.5-8.5); NEUTROPHILS % 66.8 % (36.0-66.0); PLATELET COUNT, AUTOMATED 107 10^3/uL (150-450); RED BLOOD COUNT 3.43 10^6/uL (4.00-5.40); WHITE BLOOD COUNT 6.9 10^3/uL (4.0-10.0)
[2019-02-12 06:32] LABS: CALCIUM LEVEL 8.8 MG/DL (8.5-10.1); CREATININE FOR GFR 5.4 MG/DL (0.55-1.30); MAGNESIUM LEVEL 1.7 MG/DL (1.8-2.4)
--- NOTE | 2019-02-12 07:36 | DS.PDOC ---
Discharge Summary General Date of Admission Feb 05, 2019 at 13:00 Date of Discharge 02/12/2019 Attending Physician: LILLY SCHROEDER MD Specialist/Consultants Involve: ARSLAN AMEZCUA MD @ Discharge Summary PROCEDURES PERFORMED DURING STAY: Hemodialysis ADMITTING DIAGNOSES: 1. Decompensated systolic heart failure DISCHARGE DIAGNOSES: 1. End stage renal disease 2. Decompensated congestive heart failure 3. Peritonitis 4. Diabetes mellitus 5. Hypertension 6. Hyperlipidemia 7. Secondary hyperparathyroidism 8. Anemia of chronic kidney disease 9. Hypothyroidism. COMPLICATIONS/CHIEF COMPLAINT: Nausea,Vomiting,Diarhea. HISTORY OF PRESENT ILLNESS: 48-year-old woman with past medical history of end- stage renal disease, previously on hemodialysis with a still active right thigh AV fistula, now on home PD, who presented to the [place] ED reporting progressive shortness of breath, nausea, vomiting and decreased appetite without fevers, chills, dysuria, URI symptoms, diarrhea or constipation in the setting of PD non compliance with multiple missed sessions while she was taking care of an acute ill sister. HOSPITAL COURSE: In the ED she was found to have hypertensive urgency with hyperkalemia with a potassium of 5.7 with a BUN of 105 and grossly volume overloaded on exam with a notable pericardial rub with a right-sided pleural effusion with atelectasis versus infiltrate in the right lower lobe and emergent nephrology consult was requested. Other pertinent finding included a hemoglobin of 9.5, no leukocytosis, troponin was elevated to 0.29, lipase 96, lactic acid 1.4, BNP more when 35,000, glucose level of 259 and creatinine 6.5. She was started on empiric ceftriaxone/doxy for suspected pneumonia and admitted with plan for emergent dialysis with a diagnosis of decompensated heart failure with volume overload and uremic pericarditis. She was restarted on her Q4H PD cycles over the first night and switched to HD the next day and received daily HD with Fe and aranesp for her anemia in HD until 02/10 with resolution of the volume overload as well as the uremic pericarditis. All her other medications were otherwise continued per home scripts. After much discussion with Dr. Amezcua, the decision was made to transition her back to her home PD plan 24h prior to hospital discharge that went well with plan for outpatient follow up, follow up with transplant nephrology in [place] on 02/14 and she was counselled on PD compliance and the complications of non compliance to which she expressed understanding. Meanwhile, from an infectious standpoint, she was initially placed on ceftriaxone/doxy for empiric PNA coverage, that was switched to levaquin and vanc x1 dose after she spiked fevers. However after negative sputum studies and respiratory panel that was + for Paraflu, IV antibiotics were discontinues. Concurrently, she had a CT A/P that was done at [facility] that was negative for perforation and showed moderate ascites and initial peritoneal fluid analysis c/f peritonitis and received intra-peritoneal vancomycin and gentamicin. At this time, she is now being discharged home to resume her PD per outpatient script per nephrology with close nephrology follow up. DISCHARGE MEDICATIONS: Please see below. ALLERGIES: Please see below. PHYSICAL EXAMINATION ON DISCHARGE: VITAL SIGNS: Please see below. Eye Exam: PERRLA ENT Exam: Atraumatic Neck Exam: Supple, no JVD noted Chest Exam: CTAB Heart Exam: RRR, 2/6 soft systolic murmur with no evidence of previously noted rub Telemetry: No significant ectopy Abdomen Exam: hypoactive bowel sounds, PD catheter is clean, non erythematous with a dressing that is c/d/i. There is no peritoneal fluid in situ. Musculoskeletal: There is no lower extremity edema, with fistula with palpable thrill on right side. Extremity Exam: WWP, no edema, 2+ DP pulses Skin Exam: Normal turgor and temperature Neuro Exam: Strength at 5/5 X4 ext, Cranial Nerves 3-12 WNL Psych Exam: Mental status WNL LABORATORY DATA: Please see below. IMAGIN/23 CXR: Right lower lobe opacity is present with small right sided pleural effusion. There is no pneumothorax. The left lung is clear. Borderline cardiomegaly is noted. 02/09 CXR: Near complete resolution to the right lower lobe infiltrate. PROGNOSIS: Good with compliance with nephrology plan ACTIVITY: As tolerated DIET: 2g sodium and consistent carbohydrate DISCHARGE PLAN: Home to resume PD with nephrology follow up DISPOSITION: Home DISCHARGE INSTRUCTIONS: 1. Please adhere to the PD plan per nephrology recommendations ITEMS TO FOLLOWUP ON OUTPATIENT: 1. ESRD 2. Diabetes mellitus 3. Hypertension 4. Hyperlipidemia 5. Secondary hyperparathyroidism 6. Anemia of chronic kidney disease 7. Hypothyroidism. DISCHARGE CONDITION: Good TIME SPENT ON DISCHARGE: Greater than 30 minutes. Vital Signs/I&Os Vital Signs Date Time Temp Pulse Resp B/P (MAP) Pulse Ox O2 Delivery O2 Flow Rate FiO2 02/12/19 03:08 97.4 69 14 156/71 (99) 93 Room Air 02/11/19 23:59 2.0 I&O- Last 24 Hours up to 6 AM 02/12/19 06:00 Intake Total 9000 ml Output Total 4500 ml Balance 4500 ml Laboratory Data Labs 24H Laboratory Tests 2 02/11/19 11:49: Bedside Glucose (Misc Panel) 115H 02/11/19 17:07: Bedside Glucose (Misc Panel) 134H 02/11/19 20:15: Bedside Glucose (Misc Panel) 163H 02/12/19 05:46: Immature Granulocyte % (Auto) 0.4, Neutrophils (%) (Auto) 66.8H, Lymphocytes (%) (Auto) 16.6L, Monocytes (%) (Auto) 11.0H, Eosinophils (%) (Auto) 4.3H, Basophils (%) (Auto) 0.9, Neutrophils # (Auto) 4.6, Lymphocytes # (Auto) 1.2L, Monocytes # (Auto) 0.8, Eosinophils # (Auto) 0.3, Basophils # (Auto) 0.1, Nucleated Red Blood Cells % (auto) 0.0, Anion Gap 7L, Glomerular Filtration Rate 9.0L, Calcium Level 8.8, Magnesium Level 1.7L CBC/BMP Laboratory Tests 02/12/19 05:46 FSBS Laboratory Tests Test 02/11/19 11:49 02/11/19 17:07 02/11/19 20:15 Range/Units Bedside Glucose (Misc Panel) 115 134 163 70-105 MG/DL Microbiology Microbiology 02/10/19 Blood Culture - Preliminary, Resulted No Growth after 48 hours. All Specime... 02/09/19 Respiratory Virus Panel (PCR) (FERNANDO) - Final, Complete Parainfluenza 4 (Piv4) 02/05/19 Acid Fast Stain, Received Pending 02/05/19 Mycobacterial Culture, Received Pending 02/05/19 Fungal Smear, Received Pending 02/05/19 Fungal Culture, Received Pending 02/05/19 Gram Stain - Final, Complete 02/05/19 Body Fluid Culture - Final, Complete 02/05/19 Anaerobic Culture - Final, Complete 02/05/19 Blood Culture - Final, Complete NO GROWTH AFTER 5 DAYS Discharge Medications Scheduled Amino AC/Protein Hydr/Whey Pro (Liquacel Liquid Protein) 960 Ml Liquid, 1 LIQ PO 3XW, (Reported) SUN/SUN/FRI Calcitriol (Calcitriol) 0.25 Mcg Capsule, 0.5 MCG PO 3XW, (Reported) MON/SUN/FRI Calcitriol (Calcitriol) 0.25 Mcg Capsule, 0.25 MCG PO 4XWK, (Reported) SUN//SUN/SUN Ergocalciferol (Vitamin D2) (Drisdol) 50,000 Unit Capsule, 50,000 UNIT PO QWEEK, (Reported) SUNDAYS Ferric Citrate (Auryxia) 210 Mg Tab, 420 MG PO WM, (Reported) Folic Acid/Vit B Complex and C (April-Antonina Tablet) 1 Tab Tab, 1 TAB PO DAILY, (Reported) Gentamicin Sulfate (Gentamicin Sulfate) 15 Gm Oint...g., 1 APLCT TOP QHS, (Reported) APPLY WITH EACH DRESSING CHANGE TO PERITONEAL DIALYSIS SITE Insulin Glargine,Hum.rec.anlog (Basaglar Kwikpen U-100) 100 Unit/1 Ml Insuln.pen, 20 UNIT SC QHS, (Reported) Isosorbide Mononitrate (Isosorbide Mononitrate ER) 30 Mg Tab, 30 MG PO DAILY, (Reported) Levothyroxine Sodium (Levothyroxine Sodium) 100 Mcg Tablet, 100 MCG PO DAILY, (Reported) Lisinopril (Lisinopril) 10 Mg Tablet, 10 MG PO DAILY, (Reported) Methoxy Peg-Epoetin Beta (Mircera) 100 Mcg/0.3 Ml Syringe, 100 MCG INJ QMONTH, (Reported) Metoprolol Tartrate (Metoprolol Tartrate) 25 Mg Tablet, 25 MG PO BID, (Reported) Omeprazole (Omeprazole) 40 Mg Capsule.dr, 40 MG PO BID, (Reported) Sevelamer Carbonate (Sevelamer Carbonate) 800 Mg Tab, 2,400 MG PO TID, (Reported) Allergies Coded Allergies: Penicillins (Verified Allergy, Unknown, UNKNOWN CHILDHOOD REACTION, 09/11/18) PER [facility] RECORDS PT HAS RECEIVED MEROPENEM AND CEFEPIME IN THE PAST LILLY SCHROEDER MD Feb 12, 2019 07:34
[2019-02-12] MEDS: (RENVELA) SEVELAMER **CARBONate** 800 MG TAB PO SCH (08:49)
[2019-02-12] MEDS: FERROUS GLUCONATE 324 MG TAB PO SCH (08:49)
[2019-02-12] MEDS: OMEPRAZOLE 20 MG CAP PO SCH (08:49)
[2019-02-12] MEDS: CALCITRIOL 0.25 MCG CAP (S0169) PO SCH (08:49)
[2019-02-12] MEDS: HumaLOG INSULIN (NovoLOG) PER UNIT SC SCH (08:50)
[2019-02-12] MEDS: LEVEMIR (INSULIN DETEMIR) 1 UNITS/0.01ML SC SCH (08:51)
[2019-02-12] MEDS: HEPARIN SOD (PORCINE) 5000 UNITS/ML VIAL SC SCH (08:51)
[2019-02-12 08:52] VITALS: BP 168/77
[2019-02-12] MEDS: ISOSORBIDE MON. (IMDUR) 30 MG XR TAB PO SCH (08:52)
[2019-02-12] MEDS: LISINOPRIL 20 MG TAB PO SCH (08:52)
[2019-02-12] MEDS: METOPROLOL TART 25 MG TABLET PO SCH (08:52)
== END 2019-02-12 09:02 | disposition home or self-care (01) | DRG 194 ==
LOC: M MSPAV 13:00 → M PCU 19:29 → M MSPAV 02-12 03:02
PROVIDERS: ADMIT Internal Medicine; ATTEND Internal Medicine
PROC: 3E1M39Z Irrigation of Peritoneal Cavity using Dialysate, Percutaneous Approach (ICD-10-PCS; principal; 2019-02-05)
PROC: 30233N1 Transfusion of Nonautologous Red Blood Cells into Peripheral Vein, Percutaneous Approach (ICD-10-PCS; 2019-02-10)
DX: I13.2 Hypertensive heart and chronic kidney disease with heart failure and with stage 5 chronic kidney disease, or end stage renal disease (principal); I50.33 Acute on chronic diastolic (congestive) heart failure; J18.1 Lobar pneumonia, unspecified organism; J90 Pleural effusion, not elsewhere classified; N18.6 End stage renal disease; N25.81 Secondary hyperparathyroidism of renal origin; I31.3 Pericardial effusion (noninflammatory); I32 Pericarditis in diseases classified elsewhere; E11.22 Type 2 diabetes mellitus with diabetic chronic kidney disease; R18.8 Other ascites; H93.19 Tinnitus, unspecified ear; E11.51 Type 2 diabetes mellitus with diabetic peripheral angiopathy without gangrene; E11.40 Type 2 diabetes mellitus with diabetic neuropathy, unspecified; E87.5 Hyperkalemia; R19.7 Diarrhea, unspecified; Z99.2 Dependence on renal dialysis; Z79.4 Long term (current) use of insulin; Z88.0 Allergy status to penicillin; Z79.899 Other long term (current) drug therapy; E78.5 Hyperlipidemia, unspecified; D63.1 Anemia in chronic kidney disease; F32.9 Major depressive disorder, single episode, unspecified; E03.9 Hypothyroidism, unspecified; Z95.5 Presence of coronary angioplasty implant and graft; Z87.891 Personal history of nicotine dependence; Z91.15 Patient's noncompliance with renal dialysis

== ENCOUNTER 2019-04-24 15:23 | Inpatient (IN) | payer OTHER ==
[~2019-04-24] VITALS: Ht 160 cm; Wt 63.9 kg
[2019-04-24] MEDS ORDERED: VITA1CAP25 PO (15:46)
--- NOTE | 2019-04-24 16:08 | REP ---
Portable chest x-ray: Single view. History: Chest pain. Comparison study: February 09, 2019. Findings: EKG electrodes are seen. Moderate to marked cardiomegaly is observed. Pulmonary vasculature is cephalized and congested. There are bilateral pleural effusions, right more prominent than left. There is coarse atelectasis and/or infiltrate in the left base. Impression: CHF pattern with bilateral effusions right greater than left and marked cardiomegaly. Vascular congestion. There is also discoid atelectasis and/or infiltrate in the left base. Electronically Signed by Levar Moe MD 04/24/2019 03:59 P
[2019-04-24 16:27] LABS: BASO # 0.1 10^3/uL (0.0-0.2); BASO % 1.1 % (0.0-1.0); EOS # 0.2 10^3/uL (0.0-0.5); EOS % 2.9 % (0.0-3.0); HEMATOCRIT 32.4 % (36.0-47.0); LYMPH # 0.8 10^3/uL (1.5-5.0); LYMPH % 10.8 % (24.0-44.0); MEAN CORPUSCULAR HEMOGLOBIN 29.9 pg (27.0-33.0); MEAN CORPUSCULAR HGB CONC 30.9 g/dl (32.0-36.5); MONO # 0.7 10^3/uL (0.0-0.8); MONO % 9.1 % (0.0-5.0); NEUTROPHILS # 5.7 10^3/uL (1.5-8.5); NEUTROPHILS % 75.8 % (36.0-66.0); PLATELET COUNT, AUTOMATED 165 10^3/uL (150-450); RED BLOOD COUNT 3.34 10^6/uL (4.00-5.40); WHITE BLOOD COUNT 7.5 10^3/uL (4.0-10.0)
[2019-04-24 17:01] LABS: CALCIUM LEVEL 8.9 MG/DL (8.5-10.1); CK-MB VALUE MASS 12.7 NG/ML (<3.6); CREATININE FOR GFR 16.3 MG/DL (0.55-1.30); GLOMERULAR FILTRATION RATE 2.5 (>58); MB/CK RELATIVE INDEX 6.79 (< OR =4); POTASSIUM SERUM 4.6 MEQ/L (3.5-5.1); TROPONIN I 0.13 NG/ML (< 0.10)
--- NOTE | 2019-04-24 17:28 | REP ---
CT chest without contrast: History: Left-sided chest pain. Comparison chest CT study of May 29, 2015. CT findings: Digital resolution expert radiograph demonstrates cardiomegaly and bilateral pleural effusions with air bronchograms in the left lower lobe. CT images confirm the presence of small to moderate bilateral pleural effusions. There is a moderate-sized pericardial effusion. These findings are similar to those seen on May 29, 2015. The pericardial effusion is slightly larger. There is compressive atelectasis in the lower lobes bilaterally and in the lingula there is some atelectasis. No definite infiltrate is seen. There is coronary artery vascular calcification and calcification is seen in the great vessels. No bony destructive lesion is seen. Impression: CHF pattern with moderate bilateral pleural and moderate pericardial effusions. Cardiomegaly. Coronary artery vascular calcification. Bilateral lower lobe and lingular atelectatic changes. Electronically Signed by Levar Moe MD 04/24/2019 06:35 P
--- NOTE | 2019-04-24 19:31 | ECGEPIP ---
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
[2019-04-24] MEDS ORDERED: SEVE800T3 PO (20:06)
[2019-04-24] MEDS ORDERED: FLUC200T2 PO (20:06)
[2019-04-24] MEDS ORDERED: DEXTROSE 50% 50 ML SYRINGE IV PRN (20:15)
[2019-04-24] MEDS ORDERED: ACETAMINOPHEN TAB 650MG DOSE (2X325MG) PO PRN (20:15)
[2019-04-24] MEDS ORDERED: GLUCOSE 4 GM CHEW TABLET PO PRN (20:15)
[2019-04-24] MEDS ORDERED: MAALOX 30 ML SUSP *UDC PO PRN (20:15)
[2019-04-24] MEDS ORDERED: GLUCAGON FOR INJ 1 MG VIAL (J1610) SC PRN (20:15)
--- NOTE | 2019-04-24 20:18 | HPEPDOC ---
[facility] Medical History & Physical Date of Admission Apr 24, 2019 Date of Service: Apr 24, 2019 Primary Care Physician: Camilla Acevedo MD Attending Physician: YASMANY ZARAGOZA MD History and Physical CHIEF COMPLAINT: left shoulder and back pain HISTORY OF PRESENT ILLNESS: Subha Trivedi is a 49 year old female who presented to the emergency room after blood work about 1 week of worsening left shoulder and back pain. Patient states she has a sharp pain that goes over her left shoul ana down the left side of her back and wraps around to the left side of her chest. States the pain is worse when she coughs, sneezes, or takes a deep breath. She also notes feeling short of breath especially on exertion She has a history of end-stage renal disease and is on peritoneal dialysis. She states that she has considered doing hemodialysis instead of peritoneal dialysis recently, but was told to continue with peritoneal dialysis. She states she is compliant with using her peritoneal dialysis every night. REVIEW OF SYSTEMS: CONSTITUTIONAL: Endorses fatigue Denies fevers, chills, night sweats, unexpected change in weight. HEENT: Endorses change in vision secondary to diabetic retinopathy. Denies change in hearing. CARDIOVASCULAR: Endorses chest pain and shortness of breath as described in HPI. Denies palpitations, lightheadedness. RESPIRATORY: Denies cough, wheezing. GASTROINTESTINAL: Denies nausea, vomiting, abdominal pain, diarrhea, constipation, blood in stool. GENITOURINARY: Denies dysuria, urinary frequency, urinary urgency. SKIN: Denies rash, lesions. MUSCULOSKELETAL: Shoulder and back pain as described in HPI. NEUROLOGICAL: Denies headache, dizziness, weakness. PSYCHIATRIC: Denies change in mood. PAST MEDICAL HISTORY: 1. End-stage renal disease, on peritoneal dialysis. 2. 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 Chornic Hypertension / Chronic Diastolic CHF 4. Hyperlipidemia. 5. Heart failure with reduced ejection fraction. 6. Pericardial effusion in 2016. 7. Peripheral vascular disease. 8. Anemia 9. Hypothyroidism. PAST SURGICAL HISTORY: 1. Cardiac catheterization with a stent placed. 2. Hysterectomy. 3. Chest tube placement in 2016 for pericardial effusion. 4. section. 5. Tubal ligation. 6. AV fistula in the right arm, which caused steal syndrome, and was reversed. 7. AV fistula in her leg. 8. Kidney and liver biopsies. SOCIAL HISTORY: Former smoker, 1 pack per day for about 35 years, quit a few weeks ago, [id number] history. Denies alcohol use. Denies history of illicit or IV drug use. Lives at home with 18-year-old daughter. No pets. 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 FAMILY HISTORY: Both parents had diabetes mellitus, siblings with diabetes mellitus as well. ALLERGIES: Please see below. HOME MEDICATIONS: Please see below. PHYSICAL EXAMINATION: VITAL SIGNS: See below GENERAL: Alert, comfortable, in no acute distress. On oxygen via nasal cannula. HEENT: Normocephalic, atraumatic, PERRLA, EOMI, moist mucous membranes. Sclera anicteric. NECK: Supple, trachea midline, no lymphadenopathy, no elevation of JVD noted CARDIOVASCULAR: Regular rate and rhythm, normal S1 and S2. No murmurs, rubs, or gallops appreciated. RESPIRATORY: Decreased breath sounds in bilateral lung bases. Clear to auscultation in the upper lung aquino bilaterally. ABDOMEN: Obese, soft, nontender, nondistended, bowel sounds present. Peritoneal dialysis catheter present, no inflammation, erythema, discharge, or tenderness around the catheter site. EXTREMITIES: 1+ pitting edema in bilateral lower extremities up to the knees. No cyanosis. Capillary refill less than 2 seconds. Pulses 2+/4 in bilateral dorsalis pedis and radial arteries. SKIN: [place], warm, dry. Chronic skin changes on bilateral lower extremities. NEUROLOGIC: Alert and oriented 3 to person, place and time. Cranial nerves 2-12 grossly intact. No gross focal deficits appreciated PSYCHIATRIC: Mood and affect appropriate LABORATORY DATA: See below. IMAGING: -Abdomen U/S 1. Cholelithiasis without sonographic evidence for acute cholecystitis. 2. 1.8 cm simple right renal cyst. 3. Moderate right pleural effusion identified. -Abdomen XR Nonspecific bowel gas pattern. MICROBIOLOGY: Please see below. ASSESSMENT: 49-year-old female with past medical history of end-stage renal disease, DM, Diastoli CHF, and HTN who presents with worsening left shoulder and back pain, found to have worsening kidney failure requiring hemodialysis and a pericardial effusion. PLAN: 1. Pericardial Effusion - Cardiothoracic surgery consulted, appreciate their input and recommendations - Echocardiogram ordered. Rh factor and HAWA ordered. Respiratory panel ordered - Cardiac markers elevated with troponin 0.13, continue to trend q6h 2. End stage renal disease - Pt denies noncompliance with peritoneal dialysis, no evidence of infection around peritoneal catheter - Nephrology consulted, appreciate their input and recommendations - Pt will have regular peritoneal dialysis overnight and proceed with hemodialysis in the AM 3. Type 2 diabetes mellitus - SSI while inpatient with hypoglycemic protocol -f/u A1C 4. Chronic Diastolic CHF - the patient appears clinically compensated therefore the elevated BNP, likely related to fluid overload from ESRD - plan for hemodialysis in the AM with peritoneal dialysis overnight - Continue home metoprolol and lisinopril - echocardiogram ordered 5. Chronic Hypertension - continue home metoprolol, isosorbide mononitrate, lisinopril 6. Hypothyroidism - TSH elevated - follow up with PCP to titrate levothyroxine based on repeat TFTs 7. Anemia of Chronic Disease - chronic, likely related to ESRD, Hg stable compared to baseline of 01-24 - recent iron panel c/w anemia of chronic disease - monitor CBC daily DVT prophylaxis: SC heparin Disposition: Admitted inpatient to ICU, likely home after more than 2 midnights stay Vital Signs Vital Signs Date Time Temp Pulse Resp B/P (MAP) Pulse Ox O2 Delivery O2 Flow Rate FiO2 04/24/19 19:00 85 18 169/79 (109) 92 Room Air 04/24/19 15:34 96.6 Laboratory Data Labs 24H Laboratory Tests 2 04/24/19 16:11: Immature Granulocyte % (Auto) 0.3, Neutrophils (%) (Auto) 75.8H, Lymphocytes (%) (Auto) 10.8L, Monocytes (%) (Auto) 9.1H, Eosinophils (%) (Auto) 2.9, Basophils (%) (Auto) 1.1H, Neutrophils # (Auto) 5.7, Lymphocytes # (Auto) 0.8L, Monocytes # (Auto) 0.7, Eosinophils # (Auto) 0.2, Basophils # (Auto) 0.1, Nucleated Red Blood Cells % (auto) 0.0, Anion Gap 15, Glomerular Filtration Rate 2.5L, Calcium Level 8.9, Total Creatine Kinase 187, Creatine Kinase MB 12.7H, Creatine Kinase MB Relative Index 6.79H, Troponin I 0.13H, SV-[id number]-Type Natriuretic Peptide 19435C CBC/BMP Laboratory Tests 04/24/19 16:11 Home Medications Scheduled Calcitriol (Calcitriol) 0.25 Mcg Capsule, 0.25 MCG PO 3XW MON/WED/FRI Calcitriol (Calcitriol) 0.25 Mcg Capsule, 0.5 MCG PO 4XWK SUN//SUN/SUN Cholecalciferol (Vitamin D3) (Vitamin D3) 50,000 Unit Capsule, 50,000 UNIT PO 1XWK SUNDAY Ferric Citrate (Auryxia) 210 Mg Tab, 420 MG PO WM PATIENT HAS BEEN OUT OF THIS MEDICATION FOR ABOUT 1 MONTH Fluconazole (Fluconazole) 200 Mg Tablet, 200 MG PO DAILY FILLED 04/10/19 FOR 14 DAYS Folic Acid/Vit B Complex and C (April-Antonina Tablet) 1 Tab Tab, 1 TAB PO DAILY Gentamicin Sulfate (Gentamicin Sulfate) 15 Gm Oint...g., 1 APLCT TOP QHS APPLY WITH EACH DRESSING CHANGE TO PERITONEAL DIALYSIS SITE Insulin Glargine,Hum.rec.anlog (Basaglar Kwikpen U-100) 100 Unit/1 Ml Insuln.pen, 10 UNIT SC BID Isosorbide Mononitrate (Isosorbide Mononitrate ER) 30 Mg Tab, 30 MG PO DAILY Levothyroxine Sodium (Levothyroxine Sodium) 100 Mcg Tablet, 100 MCG PO DAILY Lisinopril (Lisinopril) 10 Mg Tablet, 20 MG PO DAILY Metoprolol Tartrate (Metoprolol Tartrate) 25 Mg Tablet, 25 MG PO BID Omeprazole (Omeprazole) 40 Mg Capsule.dr, 40 MG PO BID Sevelamer Carbonate (Sevelamer Carbonate) 800 Mg Tablet, 2,400 MG PO WM Allergies Coded Allergies: Penicillins (Verified Allergy, Unknown, UNKNOWN CHILDHOOD REACTION, 09/11/18) PER [facility] RECORDS PT HAS RECEIVED MEROPENEM AND CEFEPIME IN THE PAST A-FIB/CHADSVASC A-FIB History Current/History of A-Fib/PAF?: No GME ATTESTATION GME ATTESTATION My faculty preceptor for this patient encounter was physically present during the encounter and was fully available. All aspects of the patient interview, examination, medical decision making process, and medical care plan development were reviewed and approved by the faculty preceptor. The faculty preceptor is aware and concurs with the plan as stated in the body of this note and will attest to such by his/her cosignature. ATTENDING NOTE I examined Ms. Trivedi at 9:30 PM reviewed and edited Dr. Knutson's note and agree with the findings as documented CLARK PEOPLES D.O. Apr 24, 2019 20:18 YASMANY ZARAGOZA MD Apr 25, 2019 01:24
[2019-04-24 20:57] VITALS: BP 177/84
[2019-04-24] MEDS: GENTAMICIN SULFATE 0.1% OINT 15 GM TOP SCH (21:00)
[2019-04-24 22:07] VITALS: BP 188/83
[2019-04-24] MEDS: METOPROLOL TART 25 MG TABLET PO SCH (22:07)
[2019-04-24 22:24] LABS: INR 1.15; PROTHROMBIN TIME 14.5 SECONDS (11.8-14.0)
[2019-04-24 22:25] LABS: PARTIAL THROMBOPLASTIN TIME 31.3 SECONDS (25.0-38.4)
[2019-04-24 22:42] LABS: CK-MB VALUE MASS 8.7 NG/ML (<3.6); CPK CREATINE PHOSPHOKINASE 130 U/L (26-192); MB/CK RELATIVE INDEX 6.69 (< OR =4); RHEUMATOID FACTOR QUANT < 10.0 IU/ML (<15.0); TROPONIN I 0.13 NG/ML (< 0.10)
[2019-04-24 23:00] VITALS: BP 189/84
--- NOTE | 2019-04-24 23:11 | ECHO ---
DATE OF PROCEDURE: 04/24/2019 REFERRING PROVIDER: Emergency Room (ER). REASON FOR ECHOCARDIOGRAM: Pericardial effusion. 2D MEASUREMENTS: LA: 4.1 cm Aorta: 2.5 cm IVC: 2.2 cm DOPPLER MEASUREMENTS: Peak velocity across the aortic valve: 1.2 meters per second Maximum tricuspid valve velocity: 2.7 meters per second 2D COMMENTS: 1. Normal left ventricular size with probably mildly increased left ventricular wall thickness. Left ventricular systolic function seems to be normal, estimated at 65 to %. 2. Mildly enlarged left atrium at 4.1 cm. Normal right atrium and right ventricle. 3. The atrial septum appeared to be normal without evidence of defect or shunt. 4. Normal aortic root. 5. Moderate size pericardial effusion noted, no evidence of cardiac chamber compromise. Bilateral pleural effusion also noted. 6. Minimally calcified aortic valve with normal leaflet excursion. Mildly calcified mitral annulus with normal anterior mitral valve leaflet motion. Normal tricuspid valve and pulmonic valve. The proximal pulmonary artery branches also appear to be normal. 7. The inferior vena cava is mildly enlarged, central venous pressure might be elevated. DOPPLER: It detects mild aortic regurgitation, trace mitral regurgitation, mild tricuspid regurgitation and moderate pulmonic regurgitation. The calculated pulmonary artery systolic pressure varies between 30-40 mmHg. Abnormal relaxation pattern was noted across the mitral valve leaflets as well as the mitral valve annulus consistent with features of grade 1 left ventricular diastolic dysfunction. IMPRESSION: 1. Low normal global left ventricular systolic function with probably mild concentric left ventricular hypertrophy. There are some features of grade 1 left ventricular diastolic dysfunction, abnormal relaxation. 2. Aortic valve sclerosis with mild aortic regurgitation but no aortic stenosis. 3. Mitral annulus calcification with trace mitral regurgitation and mildly enlarged left atrium. 4. Mild tricuspid regurgitation with mild pulmonary hypertension. 5. Moderate pulmonic regurgitation noted. 6. There are some features of elevated central venous pressure, the inferior vena cava is mildly enlarged. 7. Moderate pericardial effusion noted, no evidence of cardiac chamber compromise. There was also no significant variation noted across the mitral inflow mitral valve inflow. 8. Bilateral pleural effusion noted. 9. This was compared with the most recent echocardiogram on 02/06/2019, no remarkable changes.
[2019-04-24] MEDS: HumaLOG INSULIN (NovoLOG) PER UNIT SC SCH (23:54)
[2019-04-25] VITALS (24 sets, daily range): BP systolic 86–183; BP diastolic 54–84
[2019-04-25 01:59] LABS: HEMOGLOBIN A1c 6.6 %
[2019-04-25] MEDS: MORPHINE 2 MG/ML 1ML VIAL (J2270) IV PRN ×4 (02:07→20:05)
[2019-04-25 02:46] LABS: CK-MB VALUE MASS 8.4 NG/ML (<3.6); MB/CK RELATIVE INDEX 6.94 (< OR =4); TROPONIN I 0.13 NG/ML (< 0.10)
[2019-04-25 05:12] LABS: HEMATOCRIT 25.7 % (36.0-47.0); MEAN CORPUSCULAR HEMOGLOBIN 30.1 pg (27.0-33.0); MEAN CORPUSCULAR HGB CONC 31.1 g/dl (32.0-36.5); MEAN CORPUSCULAR VOLUME 96.6 fl (80.0-96.0); PLATELET COUNT, AUTOMATED 150 10^3/uL (150-450); RED BLOOD COUNT 2.66 10^6/uL (4.00-5.40); WHITE BLOOD COUNT 7.5 10^3/uL (4.0-10.0)
[2019-04-25] MEDS: HumaLOG INSULIN (NovoLOG) PER UNIT SC SCH ×4 (05:34→21:00)
[2019-04-25] MEDS: (RENVELA) SEVELAMER **CARBONate** 800 MG TAB PO SCH ×3 (06:15→17:20)
[2019-04-25] MEDS: LEVOTHYROXINE 100MCG TABLET (0.1MG) PO SCH (06:37)
[2019-04-25] MEDS: ISOSORBIDE MON. (IMDUR) 30 MG XR TAB PO SCH (06:38)
[2019-04-25] MEDS: CALCITRIOL 0.25 MCG CAP (S0169) PO SCH (06:38)
[2019-04-25] MEDS: METOPROLOL TART 25 MG TABLET PO SCH ×2 (06:39→20:05)
[2019-04-25 08:36] LABS: CK-MB VALUE MASS 6.2 NG/ML (<3.6); MB/CK RELATIVE INDEX 6.97 (< OR =4); TROPONIN I 0.12 NG/ML (< 0.10)
[2019-04-25] MEDS ORDERED: lisinopriL 20 MG TAB PO SCH (09:00)
[2019-04-25] MEDS: HEPARIN SOD (PORCINE) 5000 UNITS/ML VIAL SC SCH ×2 (09:34→20:04)
[2019-04-25 11:24] LABS: CALCIUM LEVEL 8.7 MG/DL (8.5-10.1); CREATININE FOR GFR 16.7 MG/DL (0.55-1.30); FREE T4 0.46 NG/DL (0.76-1.46); GLOMERULAR FILTRATION RATE 2.4 (>58); POTASSIUM SERUM 4.8 MEQ/L (3.5-5.1)
[2019-04-25 14:43] LABS: CK-MB VALUE MASS 6.4 NG/ML (<3.6); MB/CK RELATIVE INDEX 6.81 (< OR =4); TROPONIN I 0.12 NG/ML (< 0.10)
--- NOTE | 2019-04-25 14:52 | IPNPDOC ---
Text Note Date of Service The patient was seen on 04/25/19. NOTE Subjective: -Feels much better this morning. Reports having felt like she was a fish out of water and could not breathe. Interim events: -Admitted with robert volume overload, with a moderate pericardial effusion with no evidence of effusion causing cardiac function demise on TTE, pleural effusion and peripheral volume overload, in the setting of prolonged non-compliance to her PD. (Was previously on HD, then transitioned to PD but was non-compliant) -Dr. Lopez and Dr. Acevedo were consulted --> decision was made to manage via volume optimization with HD. -Was admitted to the ICU where she is receiving HD with improving exam and resolved SOB, now on nasal canula Objective: GENERAL: Alert, comfortable, in no acute distress, now down to 1L NC HEENT: NCAT, PERRLA, EOMI, moist mucous membranes, anicteric. NECK: +JVD, supple CARDIOVASCULAR:RRR, has a soft systolic murmur RESPIRATORY: Diminished bilateral lung bases with some crackles, otherwise moving well in the upper aquino ABDOMEN: Normoactive, soft, NTND, PD catheter is still present but not in use, without inflammation, erythema, discharge, or tenderness around the catheter site. EXTREMITIES: Trace pitting edema in bilateral lower extremitie, good pulses, WWP, dry skin with some tenting in the LE. Has HD access in R leg, with HD in progress. SKIN: Chronic skin changes on bilateral lower extremities, tented LE skin, dry. NEUROLOGIC: Alert and oriented 3 to person, place and time. Cranial nerves 2-12 grossly intact. No gross focal deficits appreciated PSYCHIATRIC: Mood and affect appropriate LABORATORY DATA: Hgb 8, Hct 25.7, WBC 7.5, na 138, K 4.8, Cr 16.4, TSH 96.5 (pending free T4 and T3), trop 0.13->0.13->0.12 IMAGING: -Abdomen U/S 1. Cholelithiasis without sonographic evidence for acute cholecystitis. 2. 1.8 cm simple right renal cyst. 3. Moderate right pleural effusion identified. -Abdomen XR Nonspecific bowel gas pattern. TTE: 1. Low normal global left ventricular systolic function with probably mild concentric left ventricular hypertrophy. There are some features of grade 1 left ventricular diastolic dysfunction, abnormal relaxation. 2. Aortic valve sclerosis with mild aortic regurgitation but no aortic stenosis. 3. Mitral annulus calcification with trace mitral regurgitation and mildly enlarged left atrium. 4. Mild tricuspid regurgitation with mild pulmonary hypertension. 5. Moderate pulmonic regurgitation noted. 6. There are some features of elevated central venous pressure, the inferior vena cava is mildly enlarged. 7. Moderate pericardial effusion noted, no evidence of cardiac chamber compromise. There was also no significant variation noted across the mitral inflow mitral valve inflow. 8. Bilateral pleural effusion noted. 9. This was compared with the most recent echocardiogram on 02/06/2019, no remarkable changes. MICROBIOLOGY: Please see below. ASSESSMENT: 49-year-old W with ESRD previously on HD, recently on PD but unfortunately non-compliant for while now, DM, diastolic CHF, and HTN who presents with worsening left shoulder and back pain, found to have robert volume overload with a moderate pericardial effusion, pleural effusion, pulmonary vascular congestion and peripheral edema, in decompensated HFpEF, worsening kidney failure and hypoxemic respiratory failure, with a type 2 NSTEMI in the setting of dialysis non compliance. PLAN: 1. Pericardial Effusion - Cardiothoracic surgery consulted, appreciate their input and recommendations, to be managed medically via volume optimization by nephrology - Echocardiogram showing moderate pericardial effusion without function compromise, Rh factor negative and HAWA pending. Respiratory panel was negative - With ongoing HD, with improvement in SOB symptoms, will monitor Type 2 NSTEMI: in the setting of robert volume overload and decompensated HFpEF in the setting of noncompliance with PD. - Cardiac markers were mildly elevated, then downtrended - EKG was without ST changes - No chest pain at this time - SOB much improved - Will monitor 2. End stage renal disease - Pt denies noncompliance with peritoneal dialysis, no evidence of infection around peritoneal catheter, but nephrology reports that she has not been compliant for a while to the extent that they wrote her a letter discussing the dangers of her non compliance without a response from her. She did not bean picker her dialysates and other required materials for her PD, so there was no way that she was compliant with the PD if the supplies were not being picked up and she was not in communication with nephrology. - Either way, nephrology now consulted and planning to re-instate HD and pull the PD catheter, with ongoing HD, appreciate their input and recommendations 3. Type 2 diabetes mellitus - SSI while inpatient with hypoglycemic protocol -f/u A1C 4. Acute on chronic Diastolic CHF in the setting of non compliance with PD - the patient was clearly decompensated with robert volume overload on exam and imaging, as well as elevated BNP - TTE with plethoric IVC, pericardial effusion, preserved EF and grade 1 diastolic dysfunction - Has ongoing hemodialysis - Continue home metoprolol and lisinopril 5. Chronic Hypertension - continue home metoprolol, isosorbide mononitrate, lisinopril 6. Hypothyroidism - TSH elevated, follow up free T4 and T3 - for now continue synthroid 7. Anemia of Chronic Disease - chronic, likely related to ESRD, Hg stable compared to baseline of 01-24 - recent iron panel c/w anemia of chronic disease - monitor CBC daily DVT prophylaxis: SC heparin Disposition: Pending transfer to PCU after HD in the ICU VS,Regina, I+O VS, Regina, I+O Laboratory Tests 04/24/19 16:11 04/25/19 04:35 04/25/19 04:38 Vital Signs Date Time Temp Pulse Resp B/P (MAP) Pulse Ox O2 Delivery O2 Flow Rate FiO2 04/25/19 13:30 77 12 129/63 (85) 95 Nasal Cannula 1.0 04/25/19 12:00 98.0 I&O- Last 24 Hours up to 6 AM 04/25/19 06:00 Intake Total 0 ml Output Total 0 ml Balance 0 ml LILLY SCHROEDER MD Apr 25, 2019 14:52
--- NOTE | 2019-04-25 15:12 | REP ---
Chest x-ray: Two views. History: Pleural pericardial effusions. Comparison chest x-ray: April 24, 2019. Findings: There are moderate bilateral pleural effusions again noted producing hazy opacity in the lower half of the hemithoraces. Moderate cardiomegaly is observed with a water bottle heart configuration consistent with the history of pericardial effusion. The cardiomegaly and effusions are significantly more prominent than on February 05, 2019 prior study. Findings are quite similar to yesterday's portable chest x-ray. Impression: Moderate to large bilateral pleural effusions. Cardiomegaly consistent with pericardial effusion. Essentially unchanged from the nine May 05, 2019 prior chest x-ray. Electronically Signed by Levar Moe MD 04/25/2019 03:04 P
--- NOTE | 2019-04-25 15:49 | CR ---
DATE OF CONSULTATION: 04/25/2019 The patient is seen at the request of Dr. Santos of the emergency room who called me late last night for a pericardial effusion and bilateral pleural effusions. Echocardiogram did not show any compression. I therefore decided to see her this morning. HISTORY OF PRESENT ILLNESS: The patient is a 49-year-old white female with renal failure on peritoneal dialysis who complains that over the past three or four days she has becoming more short of breath such that she has trouble laying flat. She has been waking up short of breath at night for the last few days. She was recently converted from hemodialysis to peritoneal dialysis. In addition to becoming more shortness of breath she now complains of sharp chest pain and back pain. This is located in her left upper chest through her back. She specifically denies that she has a ripping pain. It hurts when she takes a deep breath. There has been no fever, chills or sweats. She has not had a cough nor does she have sputum production. There is no dysphagia. She was dialyzed today. My recommendation last night when I reviewed all the information was that her pericardial and pleural effusions were secondary to need for dialysis. PAST MEDICAL HISTORY: End-stage renal disease, on peritoneal dialysis. 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 Hypertension. Diastolic congestive heart failure. Hyperlipidemia. Pericardial effusion 2016. Peripheral vascular disease. Anemia. Hypothyroidism. PAST SURGICAL HISTORY: 1. Cardiac stent placement. 2. Hysterectomy. 3. Pericardial drainage in 2016. 4. AV fistula in the right arm. 5. AV fistula in her leg. 6. Tubal ligation. 7. I performed pericardiocentesis and tube pericardiostomy in May of 2015 where 280 mL of fluid was removed and tube pericardiostomy was completed. She also had pleural fluid drainage via chest tube. HABITS: She is a former smoker, one pack per day for about 35 years, quit a few weeks ago. Denies alcohol use. Denies illicit drugs. EXPOSURES: No dogs, birds or cats at home. 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 FAMILY HISTORY: Both parents had diabetes and her siblings have diabetes as well. ALLERGIES: PENICILLIN. HOME MEDICATIONS: - calcitriol 0.25 mg three times a week, Sunday, Sunday, Sunday - calcitriol 0.05 mg by mouth four times a week, Sunday, , Sunday and Sunday - vitamin D3 50,000 every week - ferric citrate 420 mg Sunday and Sunday - fluocinolone 200 mg every day - insulin 10 units subcutaneous twice a day - isosorbide 30 mg every day - Synthroid 100 mcg every day - lisinopril 20 mg every day - metoprolol 20,000 mg twice a day - omeprazole 40 mg twice a day - sevelamer 2400 mg by mouth Sunday and Sunday REVIEW OF SYSTEMS: Constitutional: She HPI. 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 Without prior jaundice. Mouth: Missing her entire top teeth. Has some residual teeth on the bottom. Nose: Without epistaxis. Respiratory: See HPI. Cardiac: See HPI. Denies prior myocardial infarctions, palpitations or tachycardias. Gastrointestinal (GI): Without nausea, vomiting, diarrhea, constipation, melena, hematochezia, hematemesis. Does complain of left upper quadrant abdominal pain. Genitourinary (): Without dysuria or hematuria. Neurologic: Without paresthesias, paralysis but does have peripheral neuropathy of her feet. Without seizures. Psychiatric: Without pathologic anxiety, depression or psychoses. PHYSICAL EXAMINATION: Well-developed, chronically ill white female in no acute distress. Vital signs: Temperature is 98.5, heart rate of 72 in a sinus rhythm. Respiratory rate of 12 without the use of accessory muscles who is 93% saturated on 1 liter of nasal cannula and whose blood pressure is 148/71. Eyes: Pupils equal, round and reactive to light. Extraocular muscles intact. Sclera anicteric. Nose: Without deformity. Mouth: Shows her mucous membranes to be pink and moist. Lips and commissures are without lesions. There is no thrush. She is missing all of her upper teeth and only has a few of her bottom teeth left. Neck is supple. There is no jugular venous distention, no subcutaneous emphysema. Trachea is midline. There is no lymphadenopathy or thyromegaly. Lungs: Show decreased breath sounds on either side with transmitted bronchophony at both bases with E to A egophony at both bases. I hear no whezzing. Percussion note is dull at the bases. Cardiac examination: Shows a pericardial friction rub heard best at the apex. S1 and S2 are normal. I cannot feel her point of maximal impulse (PMI). Abdomen: Soft, but slightly tender to deep palpation in the left upper quadrant. Bowel sounds are positive. There is no hepatomegaly and no costovertebral angle (CVA) tenderness. I hear no abdominal bruits. Peritoneal dialysis catheter is in place. Extremities: Show maybe trace pretibial edema. No calf tenderness. No differential swelling of the upper extremities. Skin: Warm and dry, and perfused without cyanosis or mottling including that of the nail beds and the knees. Neuro: Shows II through XII intact. Gross motor and gross sensation intact. Gait is not tested. Psychiatric: Shows her to be awake, alert and oriented times three, with appropriate mood, affect, and conversational. LABS: Her white count today is 7.5 with hemoglobin and hematocrit of 8.0 and 25.7 respectively. Platelet count is 150. Differential yesterday shows 75% neutrophils, 10% lymphocytes, 9% monocytes. There are no immature forms. No toxic granulations. Electrolytes today are essentially normal with a BUN and creatine of 103 and 16.7. Glucose is 121. Troponin is 0.12. Her TSH is 116. Her chest x-ray done portably yesterday in the emergency room shows bilateral pleural effusions. Also shows a large globular heart. There is no lateral done. Chest CT also done yesterday in the emergency room shows a small to moderate pericardial effusion. Also shows moderate bilateral pleural effusions with bilateral atelectasis and compression. Chest CT is done of course without contrast. There is no mediastinal hematoma and the great vessels look to be intact. There is extensive coronary disease in the left anterior descending and left main along with the right coronary artery. The majority of the pericardial effusion is posteriorly and inferiorly. Her lung windows show the bilateral compression. I see no other lung masses. I do not see emphysematous changes. The left adrenal has a normal configuration as does the right adrenal. IMPRESSION: 1. Pericardial effusion, recurrent from 2016. 2. Bilateral pleural effusions. 3. End-stage renal failure, on peritoneal dialysis, in need of additional dialysis. 4. Severe hypothyroidism. 5. Hypertension. 6. Diabetes. PLAN AND DISCUSSION: At this point in time she is asymptomatic. Her echocardiogram only shows a small pericardial effusion and there is no evidence of compression. IVC collapses. She is definitely not in tamponade. She is volume overloaded secondary to her renal failure and she is undergoing daily hemodialysis at this point in time. She already has a femoral shunt and fistula in place. I do not think at this point we need to aggressively address either or pleural effusions or her pericardial effusion. Will continue to follow her over the next few days. I will repeat the CT scan most likely tomorrow. Will undertake daily chest x-rays. She is currently on Synthroid 100 mcg every day. I suggest that we more actively and aggressively treat her hypothyroidism as that could also be the cause of her pericardial effusions.
[2019-04-25 16:21] LABS: TOTAL T3 34.4 NG/DL (60.0-181.0)
[2019-04-25] MEDS: GENTAMICIN SULFATE 0.1% OINT 15 GM TOP SCH (20:04)
--- NOTE | 2019-04-25 21:49 | CR ---
DATE OF CONSULTATION: 04/25/2019 REQUESTING PHYSICIAN: Dr. Limon REASON FOR CONSULTATION: Management of end-stage renal disease, noncompliant with peritoneal dialysis. HISTORY OF PRESENT ILLNESS. Subha Trivedi is a 49-year-old female with a past medical history of noncompliance, end-stage renal disease on peritoneal dialysis. She used to be on hemodialysis via right thigh arteriovenous (AV) graft in the past, but currently she is on peritoneal dialysis and is noncompliant with the same and is well known to the nephrology service from outpatient dialysis and from multiple previous hospitalizations. She also has a history of systolic congestive heart failure, type 2 diabetes, hypertension, secondary hyperparathyroidism of renal origin, anemia of chronic kidney disease, hypothyroidism and other comorbid conditions mentioned below. The patient has been poorly compliant in the outpatient peritoneal dialysis center, has missed appointments, has admitted to noncompliance with peritoneal dialysis prescription and reports that she has been struggling to adhere to peritoneal dialysis since she has been living alone and has had trouble with her eyesight. We have asked her to switch over to intermittent hemodialysis, but the patient has not followed up to make the appropriate change in dialysis modality. Certified letter was sent to her in the mail, but she did not respond to that either. She subsequently called the peritoneal dialysis nurse with complaint of chest pain and trouble breathing, and she was directed to come to the emergency room. The patient was found to have a blood urea nitrogen of about 100 and a creatinine of 16, and she was found to be in fluid overload. Nephrology evaluation was subsequently requested. The patient was found to have a pericardial effusion and cardiothoracic surgery was consulted. She was found not to be in tamponade and no surgical intervention was recommended at present. PAST MEDICAL HISTORY: 1. End-stage renal disease, noncompliant with dialysis. 2. 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 3. Hypertension. 4. Diastolic congestive heart failure. 5. Anemia of chronic renal failure. 6. Secondary hyperparathyroidism of renal origin. 7. Dyslipidemia. 8. History of pericardial effusion. 9. Peripheral vascular disease. 10. Anemia. 11. Hypothyroidism. PAST SURGICAL HISTORY: Cardiac catheterization with a stent placed. Hysterectomy. Chest tube placement. section. Tubal ligation. AV fistula in the left arm, which was subsequently ligated due to steal syndrome. AV graft in the right thigh. Kidney and liver biopsies. ALLERGIES: PENICILLIN. SOCIAL HISTORY: She is a ex-smoker; she has a 35 pack-year history. Denies alcohol or illicit drugs. Lives alone. FAMILY HISTORY: There is a family history of diabetes. HOME MEDICATIONS: The patient is noncompliant with home medications, but the list includes calcitriol, vitamin D3, Auryxia, April-Antonina tablet, insulin, Imdur extended release 30 mg by mouth daily, levothyroxine 100 mcg by mouth daily, lisinopril 20 mg by mouth daily, metoprolol 25 mg by mouth twice daily, omeprazole 40 mg by mouth twice daily, Renvela 2400 mg by mouth with meals. REVIEW OF SYSTEMS: Constitutional: She denies fevers or chills. Eyes: She denies visual changes or tearing. She has a history of diabetic retinopathy. She reports low visual acuity. Cardiac: She reports a history of heart failure. She complains of chest pain and dyspnea on exertion. Respiratory: She reports shortness of breath and pain with deep inspiration. Gastrointestinal: She denies nausea, vomiting, diarrhea. Genitourinary: She denies dysuria or hematuria. Endocrine: She reports hypothyroidism and diabetes. Skin: She denies rashes or lesions. Musculoskeletal: She reports back pain and generalized weakness. Neurologic: She denies seizure or syncope. Psychiatric: She denies anxiety, admits to depression. Hematologic: She reports anemia of chronic renal failure. She denies easy bleeding. Remainder review of systems is negative or as per history of the present illness. PHYSICAL EXAMINATION: Vital signs: Temperature 98.0, pulse 72, respiratory rate 12, blood pressure 104/54, saturating 97% on one liter nasal cannula. Dialysis today removed 2500 mL. General: The patient is seen in the intensive care unit this morning receiving hemodialysis, awake, alert, oriented times three, interactive, conversational, no apparent distress. Extraocular muscles are intact. Tongue is moist. Neck is supple. Jugular veins are elevated. Heart sounds are regular. There is no friction murmur. There is trace edema in the legs. Lungs show diminished breath sounds bilaterally. There is no accessory muscle use or tachypnea. Abdomen is soft and nontender. There is no peritoneal dialysis fluid in situ. There is a peritoneal dialysis (PD) catheter, the exit site is clean, dry and intact. Legs are negative for edema. There is an AV graft present in the right thigh, which is in use. Skin: Normal temperature and turgor. Neurologic: Oriented times three. No asterixis. LABORATORY: Sodium 140, potassium 4.8, bicarbonate 18, BUN 103, creatinine 16, TSH 116, hemoglobin 8.0, platelets 150. Chest x-ray today showed moderate to large bilateral pleural effusions. INPATIENT MEDICATIONS: Tylenol as needed, Mylanta as needed, calcitriol 0.5 mcg by mouth Sunday, Sunday, , Sunday and 0.25 mcg by mouth Sunday, Sunday, Sunday, heparin 5000 units subcu every 12 hours, Imdur 30 mg by mouth daily, levothyroxine 100 mcg by mouth daily, lisinopril 20 mg by mouth daily, metoprolol 25 mg by mouth twice a day. PROBLEMS: 1. End-stage renal disease, on peritoneal dialysis. The patient is noncompliant with peritoneal dialysis. She is admitted again this time with fluid overload and pericardial effusion, and blood urea nitrogen of 100 with creatinine of 16. She admits to robert noncompliance with her PD prescription. We have been advising her as an outpatient to switch over to hemodialysis. She received hemodialysis treatment today via the right thigh graft. She will receive hemodialysis again tomorrow. I will plan to get her peritoneal dialysis catheter removed on this admission. She will need arrangement for outpatient hemodialysis chair. 2. Decompensated diastolic congestive heart failure. The patient is markedly volume overloaded. She has moderate to large bilateral pleural effusion. She has a moderate pericardial effusion as well. She is noncompliant with peritoneal dialysis. She received hemodialysis today with 2.5 liters of fluid removed. She will receive hemodialysis again on Sunday as well. She should be on a fluid restricted low salt diet. 3. Hypertension. Blood pressures are actually soft. I have stopped her lisinopril, and I have added hold parameters for her Imdur and metoprolol. Since she was dialyzed this morning, her systolic has come down a fair amount. 4. Hypothyroidism. The patient is noncompliant with her medications as an outpatient as evidenced by her severely elevated thyroid-stimulating hormone (TSH). 5. Anemia of chronic kidney disease, worse than her usual baseline. Hemoglobin is 8.0. There is likely a component of hemodilution given her fluid overload. I would start her on Aranesp once we have corrected her volume status a little bit more. 6. Pleural effusions and pericardial effusion. It is secondary to noncompliance with dialysis. She needs aggressive hemodialysis now, and she will receive extra treatment while she is in the hospital. She will subsequently need to be switched over to in center hemodialysis as opposed to home peritoneal dialysis due to her noncompliance. Thank you for involving me in the care of Ms. Trivedi. I will be happy to follow her along with you.
[2019-04-26] VITALS (19 sets, daily range): BP systolic 110–180; BP diastolic 55–84
[2019-04-26 05:02] LABS: HEMATOCRIT 26.4 % (36.0-47.0); HEMOGLOBIN 7.9 g/dl (12.0-15.5); MEAN CORPUSCULAR HEMOGLOBIN 29.5 pg (27.0-33.0); MEAN CORPUSCULAR HGB CONC 29.9 g/dl (32.0-36.5); MEAN CORPUSCULAR VOLUME 98.5 fl (80.0-96.0); PLATELET COUNT, AUTOMATED 161 10^3/uL (150-450); RED BLOOD COUNT 2.68 10^6/uL (4.00-5.40); WHITE BLOOD COUNT 6.4 10^3/uL (4.0-10.0)
[2019-04-26 05:32] LABS: CALCIUM LEVEL 7.7 MG/DL (8.5-10.1); CREATININE FOR GFR 9.06 MG/DL (0.55-1.30); POTASSIUM SERUM 4.1 MEQ/L (3.5-5.1)
[2019-04-26] MEDS: HumaLOG INSULIN (NovoLOG) PER UNIT SC SCH ×5 (06:02→21:00)
[2019-04-26] MEDS: MORPHINE 2 MG/ML 1ML VIAL (J2270) IV PRN (06:09)
[2019-04-26] MEDS: LEVOTHYROXINE 100MCG TABLET (0.1MG) PO SCH (06:34)
[2019-04-26] MEDS: CALCITRIOL 0.25 MCG CAP (S0169) PO SCH (06:34)
[2019-04-26] MEDS: (RENVELA) SEVELAMER **CARBONate** 800 MG TAB PO SCH ×3 (06:34→17:49)
[2019-04-26] MEDS: ISOSORBIDE MON. (IMDUR) 30 MG XR TAB PO SCH (06:45)
[2019-04-26] MEDS: METOPROLOL TART 25 MG TABLET PO SCH ×2 (06:46→21:35)
[2019-04-26 08:15] LABS: PHOSPHORUS LEVEL 3.6 MG/DL (2.5-4.9)
[2019-04-26] MEDS: HEPARIN SOD (PORCINE) 5000 UNITS/ML VIAL SC SCH ×2 (09:54→21:34)
--- NOTE | 2019-04-26 10:48 | REP ---
CHEST, TWO VIEWS: Two views of the chest are performed and compared to a prior study of 04/25/2019. Moderate bilateral pleural effusions are unchanged. Moderate cardiomegaly and pericardial fluid is unchanged. There is a right chest tube again noted in place. There is no pneumothorax. IMPRESSION: Stable exam. Electronically Signed by Eusebio Marlow MD 04/26/2019 03:53 P
--- NOTE | 2019-04-26 11:57 | IPNPDOC ---
Text Note Date of Service The patient was seen on 04/26/19. NOTE Subjective: -Feels OK this morning. Has some aches when she moves around but otherwise on room air now without complaints. -Eager to be discharged, but understands that she has to stay to improve her breathing. Interim events: -Had HD yesterday -Being downgraded to PCU status -Has HD scheduled for today, and will be received 2u pRBCs there -Requesting a bowel regimen Objective: GENERAL: Alert, comfortable, in no acute distress, now down to 1L NC HEENT: NCAT, PERRLA, EOMI, moist mucous membranes, anicteric. NECK: +JVD, supple CARDIOVASCULAR:RRR, has a soft systolic murmur RESPIRATORY: Diminished bilateral lung bases with trace crackles, otherwise moving air well ABDOMEN: Normoactive, soft, NTND EXTREMITIES:No LE edema in bilateral lower extremities, good pulses, WWP, dry skin with some tenting in the LE and chronic skin changes. SKIN: Chronic skin changes on bilateral lower extremities, tented skin persists NEUROLOGIC: Alert and oriented 3 to person, place and time. Cranial nerves 2-12 grossly intact. No gross focal deficits appreciated PSYCHIATRIC: Mood and affect appropriate LABORATORY DATA: Hgb 7.9, Hct 26.4, WBC 6.4, na 140, K 4.1 IMAGING: -Abdomen U/S 1. Cholelithiasis without sonographic evidence for acute cholecystitis. 2. 1.8 cm simple right renal cyst. 3. Moderate right pleural effusion identified. -Abdomen XR Nonspecific bowel gas pattern. TTE: 1. Low normal global left ventricular systolic function with probably mild concentric left ventricular hypertrophy. There are some features of grade 1 left ventricular diastolic dysfunction, abnormal relaxation. 2. Aortic valve sclerosis with mild aortic regurgitation but no aortic stenosis. 3. Mitral annulus calcification with trace mitral regurgitation and mildly enlarged left atrium. 4. Mild tricuspid regurgitation with mild pulmonary hypertension. 5. Moderate pulmonic regurgitation noted. 6. There are some features of elevated central venous pressure, the inferior ve na cava is mildly enlarged. 7. Moderate pericardial effusion noted, no evidence of cardiac chamber compromise. There was also no significant variation noted across the mitral inflow mitral valve inflow. 8. Bilateral pleural effusion noted. 9. This was compared with the most recent echocardiogram on 02/06/2019, no remarkable changes. MICROBIOLOGY: Please see below. ASSESSMENT: 49-year-old W with ESRD previously on HD, recently on PD but unfortunately non-compliant for while now, DM, diastolic CHF, and HTN who presents with worsening left shoulder and back pain, found to have robert volume overload with a moderate pericardial effusion, pleural effusion, pulmonary vascular congestion and peripheral edema, in decompensated HFpEF, worsening kidney failure and hypoxemic respiratory failure, with a type 2 NSTEMI in the setting of PD non compliance. PLAN: 1. Pericardial Effusion - Cardiothoracic surgery consulted, appreciate their input and recommendations, to be managed medically via volume optimization by nephrology - Echocardiogram showing moderate pericardial effusion without function compromise, Rh factor negative and HAWA pending. Respiratory panel was negative - With ongoing HD, with improvement in SOB symptoms, will monitor Type 2 NSTEMI: in the setting of robert volume overload and decompensated HFpEF in the setting of noncompliance with PD. - Cardiac markers were mildly elevated, then downtrended - EKG was without ST changes - No chest pain at this time - SOB much improved - Will monitor 2. End stage renal disease - Pt denies noncompliance with peritoneal dialysis, no evidence of infection around peritoneal catheter, but nephrology reports that she has not been compliant for a while to the extent that they wrote her a letter discussing the dangers of her non compliance without a response from her. 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 - Nephrology onboard, appreciate recs, had HD yesterday, scheduled for HD today, where she will receive 2u pRBCs 3. Type 2 diabetes mellitus - SSI while inpatient with hypoglycemic protocol -f/u A1C 4. Acute on chronic Diastolic CHF in the setting of non compliance with PD - the patient was clearly decompensated with robert volume overload on exam and imaging, as well as elevated BNP - TTE with plethoric IVC, pericardial effusion, preserved EF and grade 1 diastolic dysfunction - HD today - Continue home metoprolol and lisinopril 5. Chronic Hypertension - continue home metoprolol, isosorbide mononitrate, lisinopril 6. Hypothyroidism - TSH elevated, follow up free T4 and T3, were cancelled by lab, reordered them this morning - for now continue synthroid 7. Anemia of Chronic Disease - chronic, likely related to ESRD, Hg stable compared to baseline of 01-24 - recent iron panel c/w anemia of chronic disease - getting 2u pRBCs this morning - monitor CBC daily DVT prophylaxis: SC heparin Disposition: Transfer to PCU VS,Regina, I+O VS, Regina, I+O Laboratory Tests 04/26/19 04:39 Vital Signs Date Time Temp Pulse Resp B/P (MAP) Pulse Ox O2 Delivery O2 Flow Rate FiO2 04/26/19 08:00 1.0 04/26/19 08:00 99.0 72 18 127/60 (82) 92 Nasal Cannula I&O- Last 24 Hours up to 6 AM 04/26/19 06:00 Intake Total 680 ml Output Total 2500 ml Balance -1820 ml LILYL SCHROEDER MD Apr 26, 2019 11:57
--- NOTE | 2019-04-26 13:27 | IPN ---
DATE: 04/26/2019 Ms. Trivedi feels a bit better today, although she still has chest pain, but she says that the upper chest pain is a lot better. Furthermore, her pericardial friction rub has markedly decreased if not disappeared. Her vital signs show a T-max of 99.0 with a heart rate that ranges between 71 and 73 in a sinus rhythm, a respiratory rate that is constant at 18, who is 95% saturated on 1 liter nasal cannula and whose blood pressure is ranging between 139/67 to 127/60. Her intake and output the past 24 hours has been recorded as 360 in and 2500 out with 2500 from renal dialysis. She weighs 68.9 kg today compared to 71.2 kg yesterday. On physical examination, her lungs still show the E to A egophony at both bases with bronchophony at both bases. Percussion note is dull at both bases. The upper hemithoraces show normal vesicular sounds. Cardiac exam shows a systolic sound which I think is more of a murmur than a pericardial friction rub. Yesterday, I could clearly hear a three component pericardial friction rub at the apex, which I do not hear today. She does have both mitral and tricuspid regurgitation which may explain the murmur. Abdomen is soft, nontender. Bowel sounds are positive. There is no hepatomegaly and no CVA tenderness. Extremities show no pretibial edema. No calf tenderness. No differential swelling of the upper extremities. Skin: Warm, dry and perfused, without cyanosis or mottling including that of the nail beds and knees. Neck is supple. There is no jugular venous distention. No subcutaneous emphysema. Trachea is midline. Mouth shows her mucous membranes to be pink and moist. Lips and commissures are without lesions. There is no thrush. Eyes show her pupils be equal and reactive. Extraocular movements intact. Sclerae nonicteric. Neuro: Shows II through XII intact along with gross motor and gross sensation intact. Gait is not tested. Psychiatric shows her to be awake, alert and oriented times three, with appropriate mood, affect, and conversational. LABS: Her white count today is 6.4 with hemoglobin and hematocrit of 7.9 and 26.4, essentially unchanged from yesterday, with a platelet count of 161. Platelet count is stable. Her chemistries today show normal electrolytes with a BUN and creatinine of 42 and 9.06 prior to her dialysis today. Glucose is 122 with a calcium of 7.7 and a phosphorus of 3.6. Her HAWA screen is still pending. Her chest x-ray today still shows the bilateral pleural effusions and a globular heart. I cannot really say that that is improved over yesterday. IMPRESSION: 1. Pericardial effusion, recurrent from 2016. 2. Bilateral pleural effusions. 3. End-stage renal failure, on peritoneal dialysis, now on hemodialysis. 4. Severe hypothyroidism. 5. Hypertension. 6. Diabetes. 7. Mild tricuspid regurgitation. 8. Mitral regurgitation. PLAN AND DISCUSSION: She is feeling better and the chest pain is better. I suspect the chest pain is secondary to inflammation from her pericarditis. She still needs continued dialysis and I would continue to follow her without draining either her pleural effusions or her pericardial effusion. Her echocardiogram on admission showed her not to have any compressive signs and with an IVC that was compressible. If it does come to her needing her pleural effusions drained, that can be done with a pigtail catheter and/or a straight forward thoracentesis and x-ray.
[2019-04-26 15:07] LABS: ANTINUCLEAR ANTIBODIES DIRECT Negative (Negative)
[2019-04-26] MEDS ORDERED: HEPARIN 1,000 UNITS/ML 10ML VIAL (FOR RADIOLOGY& DIALYSIS ONLY) IV ONE ×2 (16:30)
--- NOTE | 2019-04-26 19:30 | IPN ---
DATE: 04/26/2019 Ms. Trivedi is seen this morning on her bedside. She is feeling about the same. She reports that she has pain in her back and difficulty breathing. She was found to have small pericardial effusion and bilateral pleural effusions. She has been seen by Dr. Lopez, but he did not feel that the patient needed any surgical intervention. She was dialyzed yesterday and we plan to dialyze her frequently and remove fluid more aggressively. She has history of noncompliance with dialysis, though she is telling me today that she has not missed any peritoneal dialysis. Her labs indicated noncompliance as her BUN was 96 and creatinine 16.3 on the day of admission. PHYSICAL EXAMINATION: Temperature 97.2 degrees Fahrenheit, heart rate 74 per minute and respiratory rate 16 per minute. Blood pressure 148/70 mmHg and oxygen saturation 94%. Head is atraumatic. Neck is supple and jugular venous distension (JVD) only mildly elevated. Lungs with diminished breath sounds bilaterally. Heart: Sounds are regular and without a pericardial friction rub. Abdomen: Soft and nontender and bowel sounds are normal. Extremities: Without any cyanosis or clubbing. Neurologically, she is awake and at her baseline mentation. Today's labs show sodium level 140, potassium 4.1, CO2 27, BUN 42 and creatinine 9.0. Glucose 122 and calcium 7.7. WBC count is 6.4, hemoglobin 7.9 and hematocrit 26.4. PROBLEMS: 1. Pericardial and bilateral pleural effusion. Most likely related to uremia and volume overload. She was dialyzed yesterday and will perform hemodialysis again today and try to remove fluid more aggressively. No heparin is being used due to pericardial effusion. She has been seen by Dr. Lopez, who did not feel that she needs invasive procedure for her pericardial effusion, which was only small. 2. End-stage renal disease. The patient was on peritoneal dialysis at home, which does not seem to be either working very well or she was not performing it regularly. In any event now she has developed pericardial and pleural effusions and we have switched her to hemodialysis at least temporarily. She will be dialyzed again this afternoon. 3. Anemia. The patient will be transfused 2 units of packed red blood cells (RBCs). She has already signed a consent for transfusion. 4. Generalized weakness and deconditioning. The patient is likely to improve once her medical conditions improve. Her volume status is improving with frequent dialysis. She might require physical therapy depending upon how her condition is in the next day or two. 5. Disposition. From renal standpoint, the patient can be transferred out of intensive care unit to regular floor.
[2019-04-26] MEDS: SENNA 8.6 MG TAB (SENOKOT) PO PRN (21:34)
[2019-04-26] MEDS: GENTAMICIN SULFATE 0.1% OINT 15 GM TOP SCH (21:35)
[2019-04-27] VITALS (7 sets, daily range): BP systolic 98–179; BP diastolic 60–80
[2019-04-27] MEDS: MORPHINE 2 MG/ML 1ML VIAL (J2270) IV PRN ×2 (00:58→06:12)
[2019-04-27 05:01] LABS: HEMATOCRIT 36.6 % (36.0-47.0); MEAN CORPUSCULAR HEMOGLOBIN 29.5 pg (27.0-33.0); MEAN CORPUSCULAR HGB CONC 30.3 g/dl (32.0-36.5); MEAN CORPUSCULAR VOLUME 97.3 fl (80.0-96.0); PLATELET COUNT, AUTOMATED 152 10^3/uL (150-450); RED BLOOD COUNT 3.76 10^6/uL (4.00-5.40); WHITE BLOOD COUNT 6.8 10^3/uL (4.0-10.0)
[2019-04-27] MEDS: LEVOTHYROXINE 100MCG TABLET (0.1MG) PO SCH (05:02)
[2019-04-27] MEDS: ISOSORBIDE MON. (IMDUR) 30 MG XR TAB PO SCH (05:03)
[2019-04-27 05:06] LABS: HEMOGLOBIN 11.1 g/dl (12.0-15.5)
[2019-04-27 05:39] LABS: CALCIUM LEVEL 8.4 MG/DL (8.5-10.1); CREATININE FOR GFR 5.92 MG/DL (0.55-1.30); GLOMERULAR FILTRATION RATE 8.1 (>58); POTASSIUM SERUM 4.5 MEQ/L (3.5-5.1)
[2019-04-27 07:20] LABS: FREE T4 0.53 NG/DL (0.76-1.46)
[2019-04-27] MEDS: HumaLOG INSULIN (NovoLOG) PER UNIT SC SCH ×4 (08:45→20:42)
[2019-04-27] MEDS: (RENVELA) SEVELAMER **CARBONate** 800 MG TAB PO SCH ×3 (08:57→18:01)
[2019-04-27] MEDS: MOM 30ML SUSPENSION UDC PO PRN (08:57)
[2019-04-27] MEDS: HEPARIN SOD (PORCINE) 5000 UNITS/ML VIAL SC SCH ×2 (08:58→20:41)
[2019-04-27] MEDS: METOPROLOL TART 25 MG TABLET PO SCH ×2 (08:58→20:41)
[2019-04-27] MEDS: SENNA 8.6 MG TAB (SENOKOT) PO PRN ×2 (08:58→20:40)
[2019-04-27] MEDS: CALCITRIOL 0.25 MCG CAP (S0169) PO SCH (08:59)
[2019-04-27 09:57] LABS: C REACTIVE PROTEIN QUANTITATIV 5.09 MG/DL (0.00-0.30)
--- NOTE | 2019-04-27 10:40 | IPNPDOC ---
Text Note Date of Service The patient was seen on 04/27/19. NOTE Subjective: -Feels better this morning, her SOB is improving -Continues to have some generalized body aches, agrees with having PT. Interim events: -Had HD yesterday -Was downgraded to PCU status -Received 2u pRBCs in HD Objective: GENERAL: Alert, comfortable, in no acute distress, now down to 1L NC HEENT: NCAT, PERRLA, EOMI, moist mucous membranes, anicteric. NECK: +JVD, supple CARDIOVASCULAR:RRR, has a soft systolic murmur RESPIRATORY: continued diminished bilateral lung bases with trace crackles, otherwise moving air well ABDOMEN: Normoactive, soft, NTND EXTREMITIES:No LE edema in bilateral lower extremities, good pulses, WWP, dry skin with tenting in the LE and chronic skin changes. SKIN: Chronic skin changes on bilateral lower extremities, tented skin persists NEUROLOGIC: Alert and oriented 3 to person, place and time. Cranial nerves 2-12 grossly intact. No gross focal deficits appreciated PSYCHIATRIC: Mood and affect appropriate LABORATORY DATA: Hgb 11.1, Hct 36.6, WBC 6.8, na 140, K 4.5, Cr 5.92 IMAGING: -Abdomen U/S 1. Cholelithiasis without sonographic evidence for acute cholecystitis. 2. 1.8 cm simple right renal cyst. 3. Moderate right pleural effusion identified. -Abdomen XR Nonspecific bowel gas pattern. TTE: 1. Low normal global left ventricular systolic function with probably mild concentric left ventricular hypertrophy. There are some features of grade 1 left ventricular diastolic dysfunction, abnormal relaxation. 2. Aortic valve sclerosis with mild aortic regurgitation but no aortic stenosis. 3. Mitral annulus calcification with trace mitral regurgitation and mildly enlarged left atrium. 4. Mild tricuspid regurgitation with mild pulmonary hypertension. 5. Moderate pulmonic regurgitation noted. 6. There are some features of elevated central venous pressure, the inferior vena cava is mildly enlarged. 7. Moderate pericardial effusion noted, no evidence of cardiac chamber compromise. There was also no significant variation noted across the mitral inflow mitral valve inflow. 8. Bilateral pleural effusion noted. 9. This was compared with the most recent echocardiogram on 02/06/2019, no remarkable changes. MICROBIOLOGY: Please see below. ASSESSMENT: 49-year-old W with ESRD previously on HD, recently on PD but unfortunately non-compliant for while now, DM, diastolic CHF, and HTN who presents with worsening left shoulder and back pain, found to have robert volume overload with a small pericardial effusion, bilateral pleural effusions, pulmonary vascular congestion and peripheral edema, in decompensated HFpEF, worsening kidney failure and hypoxemic respiratory failure, with a type 2 NSTEMI in the setting of PD non compliance. PLAN: 1. Pericardial Effusion - Cardiothoracic surgery consulted, appreciate their input and recommendations, to be managed medically via volume optimization by nephrology - Echocardiogram showing moderate pericardial effusion without function compromise, Rh factor negative and HAWA pending. Respiratory panel was negative - With ongoing HD, with improvement in SOB symptoms, will monitor Type 2 NSTEMI: in the setting of robert volume overload and decompensated HFpEF in the setting of noncompliance with PD. - Cardiac markers were mildly elevated, then downtrended - EKG was without ST changes - No chest pain at this time - SOB much improved - Will monitor 2. End stage renal disease now on HD - Pt denies noncompliance with peritoneal dialysis, no evidence of infection around peritoneal catheter, but nephrology reports that she has not been compliant for a while to the extent that they wrote her a letter discussing the dangers of her non compliance without a response from her. 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 - Nephrology onboard, appreciate recs, had HD yesterday, where received 2u of pRBCs 3. Type 2 diabetes mellitus - SSI while inpatient with hypoglycemic protocol -f/u A1C 4. Acute on chronic Diastolic CHF in the setting of non compliance with PD - the patient was clearly decompensated with robert volume overload on exam and imaging, as well as elevated BNP - TTE with plethoric IVC, pericardial effusion, preserved EF and grade 1 diastolic dysfunction - HD per nephrology - Continue home metoprolol and lisinopril 5. Chronic Hypertension - continue home metoprolol, isosorbide mononitrate, lisinopril 6. Hypothyroidism - TSH elevated, follow up free T4 and T3, were cancelled by lab, reordered them this morning - for now continue synthroid 7. Anemia of Chronic Disease - chronic, likely related to ESRD, Hg now returned to baseline of 10-11, s/p 2u pRBCs yesterday in HD - recent iron panel c/w anemia of chronic disease - monitor CBC daily DVT prophylaxis: SC heparin Disposition: PCU with ongoing volume optimization per nephrology with HD VS,Regina, I+O VS, [place], I+O Laboratory Tests 04/27/19 04:50 Vital Signs Date Time Temp Pulse Resp B/P (MAP) Pulse Ox O2 Delivery O2 Flow Rate FiO2 04/27/19 06:22 18 04/27/19 06:10 1.0 04/27/19 06:00 98.1 73 139/76 (97) 96 Nasal Cannula I&O- Last 24 Hours up to 6 AM 04/27/19 05:59 Intake Total 1450 ml Output Total 3000 ml Balance -1550 ml LILLY SCHROEDER MD Apr 27, 2019 08:51
--- NOTE | 2019-04-27 11:07 | REP ---
CHEST, TWO VIEWS: Comparison 04/26/2019 two views of the chest performed. Bilateral pleural effusions and bibasilar opacities are unchanged. Prominent cardiac silhouette and pericardial effusion is unchanged. Right chest tube is unchanged in position. IMPRESSION: Stable exam. Electronically Signed by Eusebio Marlow MD 04/27/2019 11:18 A
--- NOTE | 2019-04-27 12:18 | IPN ---
DATE: 04/27/2019 Ms. Trivedi is not undergoing dialysis today. She underwent dialysis yesterday with removal of 3000 mL. She still complains of left upper hemithorax chest discomfort, but it is getting better. It does hurt when she takes a deep breath in. She thinks that her breathing is somewhat improved. Her vital signs show a maximum temperature (t-max) of 98.7 with a heart rate that ranges between 68 and 73 in a sinus rhythm, respiratory rate of 16 to 18 without the use of accessory muscles, who is 96% saturated on 2 liters nasal cannula, and blood pressure is ranging between 177/78 to 139/76. Her intake and output the past 24 hours has been recorded as 1650 in and 3000 out with an output from hemodialysis. She has taken 850 mL in oral intake. Weight today is 65.1 kg compared to 68.9 kg yesterday. PHYSICAL EXAMINATION: LUNGS: Her lungs show less E to A egophony in both bases. I hear less bronchophony also in both bases. Percussion note is still dull at the bases. CARDIAC EXAM: Normal with decreased pericardial friction rub, in fact I cannot even hear what I felt was a murmur yesterday. I cannot feel her point of maximum impulse (PMI). S1, S2 are normal. ABDOMEN: Soft, nontender. Bowel sounds positive. There is no hepatomegaly. No costovertebral angle tenderness. EXTREMITIES: Trace pretibial edema. No calf tenderness. No differential swelling of the upper extremities. SKIN: Warm, dry and perfused without cyanosis or mottling, including that of the nail beds and knees. NECK: Supple. There is no jugular venous distention. No subcutaneous emphysema. Trachea is midline. MOUTH: Shows her mucous membranes to be pink and moist. Lips and commissures without lesions. There is no thrush. EYES: Show his pupils to be equal and reactive. Extraocular motion intact. Sclerae anicteric. NEUROLOGIC: Shows II through XII intact with gross motor and gross sensation intact. Gait is not tested. PSYCHIATRIC: Shows her to be awake and alert, oriented times three with appropriate mood and affect and conversational. LABORATORIES: Her white count today is 6.8 with hemoglobin and hematocrit of 11.1 and 36.6, increased from 7.9 and 26.4 yesterday. She was transfused 2 units of blood yesterday on dialysis. Her chemistries showed normal electrolytes with a BUN and creatinine of 20 and 5.92 with a glucose of 133. Calcium is 8.4. Her HAWA screen is negative. Her chest x-ray today shows a qualitative improvement in the density in the pleural effusions. Heart size is still globular and unchanged. Fluid in the fissure is now gone as compared to yesterday. She still has posterior costophrenic angle fluid. Comparison of her echocardiogram done on admission on 04/24/2019 compared to her echocardiogram done on 02/06/2019 shows essentially no difference in her pericardial effusion. IMPRESSION: 1. Pericardial effusion, recurrent from 2016 when it was drained. 2. Bilateral pleural effusions, getting slightly better. 3. End-stage renal failure, now on hemodialysis. 4. Severe hypothyroidism. 5. Hypertension. 6. Diabetes. 7. Mild tricuspid regurgitation. 8. Mitral regurgitation. PLAN AND DISCUSSION: I think the dialysis is starting to show improvement as manifested by less fluid in the fissure on the lateral chest x-ray. Treatment of her fluid overload is of course dialysis as she makes no urine at all. I suspect that she is going to escape drainage procedure, but if the pleural effusion is still persistent and she becomes more symptomatic, this can be drained with thoracentesis under ultrasonic control by x-ray. I will see her tomorrow prior to leaving on vacation, and I will sign off on her care at that time.
[2019-04-27 13:03] LABS: APPEARANCE, BODY FLUID CLEAR (CLEAR); PERITONEAL DIALYSATE FL COLOR COLORLESS (COLORLESS); SOURCE, BODY FLUID PERITONEAL DIALYSATE
[2019-04-27] MEDS: GENTAMICIN SULFATE 0.1% OINT 15 GM TOP SCH (20:41)
[2019-04-28] MEDS: MORPHINE 2 MG/ML 1ML VIAL (J2270) IV PRN ×4 (03:57→23:55)
[2019-04-28 04:00] VITALS: BP 152/73
[2019-04-28] MEDS: LEVOTHYROXINE 100MCG TABLET (0.1MG) PO SCH (05:26)
--- NOTE | 2019-04-28 06:41 | IPN ---
DATE OF VISIT: 04/27/2019 Ms. Trivedi is seen this morning on her bedside. She reports nausea and abdominal discomfort. She denies any dyspnea or chest pain. She has no fever or chills. She was dialyzed yesterday and about 2.5 liters fluid was removed without any problem. On physical examination, temperature 97.9 degrees Fahrenheit, heart rate 76 per minute and respiratory rate 18 per minute. Blood pressure 146/72 mmHg and oxygen saturation 93%. Head is atraumatic. There is no oral thrush or ulcers. Pupils equal and reactive to light and sclera is anicteric. Neck is supple and jugular venous distention (JVD) is mildly elevated. Heart sounds are regular and without a pericardial friction rub. Lungs with slightly diminished breath sounds at bases bilaterally. Abdomen: Soft and nontender. Bowel sounds are present. Extremities: Without any cyanosis or clubbing. Neurologically, she is awake, alert and at baseline mentation. Peritoneal dialysis catheter is intact in her left lower abdomen. Today's labs show sodium 140, potassium 4.5, CO2 29, BUN 20 and creatinine 5.92. Calcium 8.4. WBC count 6.8, hemoglobin 11.1 and hematocrit 36.6. PROBLEMS: 1. End-stage renal disease. The patient is now on hemodialysis and she was dialyzed yesterday. We plan to dialyze her again tomorrow. 2. Pericardial and pleural effusions. The patient has been tolerating dialysis and fluid removal very well. Pericardial effusion is most likely uremic as she was either not performing peritoneal dialysis or it was not functioning. Now she has been switched to hemodialysis and we plan to get her peritoneal dialysis catheter removed due to recurrent problems. Her volume status is improving as we are removing fluid with each dialysis. 3. Anemia. She was transfused 2 units of packed RBCs yesterday and anemia has improved. No other intervention is indicated. 4. Abdominal pain and nausea. I am concerned about possibility of peritonitis. We will perform one quick exchange of peritoneal dialysis and check the fluid for cell count, gram stain and cultures. No antibiotics are needed at present.
[2019-04-28] MEDS: CALCITRIOL 0.25 MCG CAP (S0169) PO SCH (07:14)
[2019-04-28] MEDS: (RENVELA) SEVELAMER **CARBONate** 800 MG TAB PO SCH ×3 (07:14→18:04)
[2019-04-28] MEDS: HumaLOG INSULIN (NovoLOG) PER UNIT SC SCH ×4 (07:14→20:18)
[2019-04-28 08:00] VITALS: BP 148/65
--- NOTE | 2019-04-28 08:12 | REP ---
Chest x-ray: Two views. History: Pericardial and pleural effusion. Comparison study April 27, 2019. Findings: Moderate hazy bibasilar opacity consistent with pleural effusions and discoid atelectasis persists essentially unchanged. Cardiomegaly is observed. Pulmonary vascular cephalization is seen. There is some fissural thickening. Findings are unchanged. Electronically Signed by Levar Moe MD 04/28/2019 08:04 A
[2019-04-28 08:54] LABS: ALBUMIN 2.4 GM/DL (3.2-5.2); C REACTIVE PROTEIN QUANTITATIV 4.06 MG/DL (0.00-0.30); CALCIUM LEVEL 8.7 MG/DL (8.5-10.1); CREATININE FOR GFR 7.45 MG/DL (0.55-1.30); GLOMERULAR FILTRATION RATE 6.2 (>58); POTASSIUM SERUM 4.4 MEQ/L (3.5-5.1)
--- NOTE | 2019-04-28 09:52 | IPN ---
DATE: 04/28/2019 Ms. Trivedi is still complaining of upper anterior left sided chest pain in and around her shoulder. I think this is probably referred pain from her uremic pericarditis. She is breathing well and she is able to lie flat. She is going for dialysis today. Her vital signs show a T-max of 98.3 with a heart rate that ranges between 69 and 74 and is sinus rhythm, respiratory rate of 16 to 20 without the use of accessory muscles, who is 97% saturated on 1 liter nasal cannula, and whose blood pressure is ranging between 148/65 to 152/53. Her intake and output the past 24 hours has been recorded as 3050 in and 2500 out, with the 2500 out coming from her peritoneal dialysis. Her weight today is 67.2 kilos compared to 65.1 kilos yesterday. PHYSICAL EXAMINATION: On physical examination, her lungs still show E to A egophony, but reduced in the right and left hemithoraces, more on the left than the right. Percussion notes are dull at both bases. I hear no wheezing or rhonchi. Cardiac exam shows reappearance of her pericardial friction rub at the apex in the left lower sternal border. It is very faint, but it is definitely there. I cannot feel her point of maximum impulse (PMI). S1 and S2 are normal. Abdomen is soft, nontender. Bowel sounds positive. There is no hepatomegaly. No costovertebral angle tenderness. Extremities show no pretibial edema. No calf tenderness. No differential swelling of the upper extremities. Skin is warm, dry and perfused without cyanosis or mottling, including that of the nail beds and the knees. Neck is supple. There is no jugular venous distention. No subcutaneous emphysema. Trachea is midline. Mouth shows her mucous membranes to be pink and moist. Lips and commissures without lesions. There is no thrush. Eyes show her pupils to be equal and reactive. Extraocular motion intact. Sclera nonicteric. Neuro shows II through XII intact along with gross motor and gross sensation intact. Gait is not tested. Psychiatric shows her to be awake and alert, oriented times three with appropriate mood and affect and conversational. There is no white count on her today. Her chemistries are pending. Her chest x-ray today shows some improvement from yesterdays. The right opacity is clearing and the left opacity is still present, but it looks to be less dense. The lateral film shows some reaccumulation of fluid in the major fissure. Costophrenic angle opacity is essentially unchanged. IMPRESSION: 1. Pericardial effusion, recurrent since 2016 when it was drained, but chronic. 2. Bilateral pleural effusions, improving. 3. End-stage renal failure, on hemodialysis. 4. Severe hypothyroidism. 5. Hypertension. 6. Diabetes. 7. Mild tricuspid regurgitation. 8. Mitral regurgitation. PLAN AND DISCUSSION: It looks as though as far as the pleural effusions are concerned, her dialysis is working with less fluid. She has a chronic uremic pericarditis and as her kidneys are completely nonfunctionally and she is absolutely dependent on renal dialysis, I recommend that we start her on an NSAID. That may help with the inflammatory of the pericarditis. I would not recommend steroids, however. If she is started on NSAIDs, she should be covered with a proton pump inhibitor. For additional pain control acutely, it would not be unreasonable to put her on Toradol as an IV NSAID. I will leave that to the renal service. I will be gone the next two weeks. I do not expect her to need a pericardiocentesis and if her pleural fluid needs draining, it can be done by ultrasound guided thoracentesis by x-ray.
[2019-04-28] MEDS ORDERED: HEPARIN 1,000 UNITS/ML 10ML VIAL (FOR RADIOLOGY& DIALYSIS ONLY) IV ONE (10:30)
--- NOTE | 2019-04-28 11:40 | IPNPDOC ---
Text Note Date of Service The patient was seen on 04/28/19. NOTE Subjective: -Feels the same this morning with improved dyspnea and does not feel like "fish out of water" Interim events: -Was seen my Dr. Lopez and by review of her chest film felt that her volume overload and effusions will improve with HD and hopefully will not require drainage. Objective: GENERAL: Alert, comfortable, in no acute distress, now down to 1L NC HEENT: NCAT, PERRLA, EOMI, moist mucous membranes, anicteric. NECK: +JVD, supple CARDIOVASCULAR:RRR, has a soft systolic murmur RESPIRATORY: continued diminished bilateral lung bases with bibasilar crackles, otherwise moving air well ABDOMEN: Normoactive, soft, NTND EXTREMITIES:No LE edema in bilateral lower extremities, good pulses, WWP, dry skin with tenting in the LE and chronic skin changes. SKIN: Chronic skin changes on bilateral lower extremities, tented skin persists NEUROLOGIC: Alert and oriented 3 to person, place and time. Cranial nerves 2-12 grossly intact. No gross focal deficits appreciated PSYCHIATRIC: Mood and affect appropriate LABORATORY DATA: Reviewed. Yesterday Hgb had improved to 11.1, Hct 36.6. AM labs pending. IMAGING: -Abdomen U/S 1. Cholelithiasis without sonographic evidence for acute cholecystitis. 2. 1.8 cm simple right renal cyst. 3. Moderate right pleural effusion identified. -Abdomen XR Nonspecific bowel gas pattern. TTE: 1. Low normal global left ventricular systolic function with probably mild concentric left ventricular hypertrophy. There are some features of grade 1 left ventricular diastolic dysfunction, abnormal relaxation. 2. Aortic valve sclerosis with mild aortic regurgitation but no aortic stenosis. 3. Mitral annulus calcification with trace mitral regurgitation and mildly enlarged left atrium. 4. Mild tricuspid regurgitation with mild pulmonary hypertension. 5. Moderate pulmonic regurgitation noted. 6. There are some features of elevated central venous pressure, the inferior vena cava is mildly enlarged. 7. Moderate pericardial effusion noted, no evidence of cardiac chamber compromise. There was also no significant variation noted across the mitral inflow mitral valve inflow. 8. Bilateral pleural effusion noted. 9. This was compared with the most recent echocardiogram on 02/06/2019, no remarkable changes. MICROBIOLOGY: Please see below. 04/28/2019 CXR: Moderate hazy bibasilar opacity consistent with pleural effusions and discoid atelectasis persists essentially unchanged. Cardiomegaly is observed. Pulmonary vascular cephalization is seen. There is some fissural thickening. Findings are unchanged. ASSESSMENT: 49-year-old W with ESRD previously on HD, recently on PD but unfortunately non-compliant for while now, DM, diastolic CHF, and HTN who presents with worsening left shoulder and back pain, found to have robert volume overload with a small pericardial effusion, bilateral pleural effusions, pulmonary vascular congestion and peripheral edema, in decompensated HFpEF, worsening kidney failure and hypoxemic respiratory failure, with a type 2 NSTEMI in the setting of PD non compliance. PLAN: 1. Pericardial Effusion - Cardiothoracic surgery consulted, appreciate their input and recommendations, to be managed medically via volume optimization by nephrology - Echocardiogram showing moderate pericardial effusion without function compromise, Rh factor negative and HAWA pending. Respiratory panel was negative - With ongoing HD, with improvement in SOB symptoms, will monitor, has HD today Type 2 NSTEMI: in the setting of robert volume overload and decompensated HFpEF in the setting of noncompliance with PD. - Cardiac markers were mildly elevated, then downtrended - EKG was without ST changes - No chest pain at this time - SOB much improved - Will monitor 2. End stage renal disease now on HD - Pt denies noncompliance with peritoneal dialysis, no evidence of infection around peritoneal catheter, but nephrology reports that she has not been compliant for a while to the extent that they wrote her a letter discussing the dangers of her non compliance without a response from her. 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 - Nephrology onboard, appreciate recs, planning for HD today 3. Type 2 diabetes mellitus - SSI while inpatient with hypoglycemic protocol - a1c was 6.6 4. Acute on chronic Diastolic CHF in the setting of non compliance with PD - the patient was clearly decompensated with robert volume overload on exam and imaging, as well as elevated BNP - TTE with plethoric IVC, pericardial effusion, preserved EF and grade 1 diastolic dysfunction - HD per nephrology as noted above - Continue home metoprolol and lisinopril 5. Chronic Hypertension - continue home metoprolol, isosorbide mononitrate, lisinopril 6. Hypothyroidism - TSH elevated, free T4 borderline low and T3 pending - for now continue Synthroid, will need outpatient optimization 7. Anemia of Chronic Disease - chronic, likely related to ESRD, Hg now returned to baseline of 10-11, s/p 2u pRBCs 04/26/2019 in HD - recent iron panel c/w anemia of chronic disease - monitor CBC daily DVT prophylaxis: SC heparin Disposition: PCU with ongoing volume optimization per nephrology with HD and with ongoing PT eval VS,Fishbone, I+O VS, Fishbone, I+O Vital Signs Date Time Temp Pulse Resp B/P (MAP) Pulse Ox O2 Delivery O2 Flow Rate FiO2 04/28/19 04:07 18 04/28/19 04:00 1.0 04/28/19 04:00 98.3 68 152/73 (99) 97 Nasal Cannula I&O- Last 24 Hours up to 6 AM 04/28/19 06:00 Intake Total 3050 ml Output Total 2500 ml Balance 550 ml LILLY SCHROEDER MD Apr 28, 2019 08:23
[2019-04-28 12:56] LABS: PTH INTACT 111.2 PG/ML (18.5-88.0); TOTAL T3 48.7 NG/DL (60.0-181.0)
[2019-04-28 13:20] VITALS: BP 164/72
[2019-04-28] MEDS: HEPARIN SOD (PORCINE) 5000 UNITS/ML VIAL SC SCH ×2 (13:37→20:01)
[2019-04-28] MEDS: METOPROLOL TART 25 MG TABLET PO SCH ×2 (13:39→20:02)
[2019-04-28] MEDS: ISOSORBIDE MON. (IMDUR) 30 MG XR TAB PO SCH (13:40)
[2019-04-28 16:00] VITALS: BP 145/68
--- NOTE | 2019-04-28 19:50 | IPN ---
DATE: 04/28/2019 Ms. Trivedi is seen this morning during hemodialysis. She is feeling about the same and denies any shortness of breath or chest pain. She did have mild nausea this morning but denies any vomiting. She has no fever or chills. PHYSICAL EXAMINATION: Temperature 97.5 degrees Fahrenheit, heart rate 74 per minute and respiratory rate 16 per minute. Blood pressure 148/65 mmHg and oxygen saturation 96%. Head is atraumatic. Neck is supple and JVD not abnormally elevated. She has no oral thrush or ulcers. Heart sounds are regular and without a pericardial friction rub. Lungs with slightly diminished breath sounds at bases bilaterally. Abdomen soft and nontender and bowel sounds are present. Peritoneal dialysis catheter is intact. Extremities have no cyanosis or clubbing. Right thigh hemodialysis graft is being used for dialysis today. Yesterday, we checked her peritoneal fluid which showed only 40 WBCs and less than two RBCs. 90% were mononuclear cells. Her chemistry showed sodium 136, potassium 4.4, BUN 32 and creatinine 7.45. C-reactive protein is down to 4.0. Calcium 8.7 and phosphorus 4.0. Albumin is 2.4. PROBLEM #1 1. End-stage renal disease. The patient has been dialyzed frequently due to pericardial effusion. She was dialyzed on Sunday and is being dialyzed again today. 2. Pleural and pericardial effusions. Most likely related to failed peritoneal dialysis and noncompliance. She is gradually improving with aggressive frequent hemodialysis treatments and fluid removal. Her volume status is gradually improving. Pericardial effusion is chronic and likely to take longer time to resolve. In any event, there is no emergent indication for any surgical intervention. 3. Anemia. The patient was transfused on 04/26/2019 and anemia has improved. We will continue to monitor closely. 4. Peritoneal dialysis catheter. I have requested Dr. Pratik Hoff to remove peritoneal dialysis catheter as she has failed on peritoneal dialysis. This will be scheduled within next couple of days.
[2019-04-28 20:00] VITALS: BP 132/63
[2019-04-28] MEDS: GENTAMICIN SULFATE 0.1% OINT 15 GM TOP SCH (20:00)
[2019-04-28] MEDS: MOM 30ML SUSPENSION UDC PO PRN (20:01)
[2019-04-28] MEDS: SENNA 8.6 MG TAB (SENOKOT) PO PRN (20:02)
[2019-04-29] VITALS: BP 162/74
[2019-04-29 04:00] VITALS: BP 126/59
[2019-04-29] MEDS: LEVOTHYROXINE 100MCG TABLET (0.1MG) PO SCH (06:18)
[2019-04-29 06:46] LABS: HEMATOCRIT 33.8 % (36.0-47.0); HEMOGLOBIN 10.2 g/dl (12.0-15.5); MEAN CORPUSCULAR HEMOGLOBIN 30.3 pg (27.0-33.0); MEAN CORPUSCULAR HGB CONC 30.2 g/dl (32.0-36.5); MEAN CORPUSCULAR VOLUME 100.3 fl (80.0-96.0); PLATELET COUNT, AUTOMATED 150 10^3/uL (150-450); RED BLOOD COUNT 3.37 10^6/uL (4.00-5.40)
[2019-04-29 07:09] LABS: CALCIUM LEVEL 8.5 MG/DL (8.5-10.1); CREATININE FOR GFR 5.19 MG/DL (0.55-1.30); GLOMERULAR FILTRATION RATE 9.4 (>58); POTASSIUM SERUM 4.6 MEQ/L (3.5-5.1)
[2019-04-29] MEDS: HumaLOG INSULIN (NovoLOG) PER UNIT SC SCH ×4 (07:30→20:09)
[2019-04-29 08:00] VITALS: BP 142/72
[2019-04-29] MEDS: (RENVELA) SEVELAMER **CARBONate** 800 MG TAB PO SCH ×3 (08:00→18:42)
--- NOTE | 2019-04-29 08:06 | REP ---
Chest x-ray: Two views. History: Pleural/pericardial effusion. Comparison study April 28, 2019. Findings: Bilateral pleural effusions persist, increased on the left compared with yesterday's radiograph and larger on the left than the right. Moderate cardiac enlargement is again seen unchanged. Pulmonary vasculature is cephalized. No new infiltrate is seen. Electronically Signed by Levar Moe MD 04/29/2019 07:58 A
--- NOTE | 2019-04-29 08:25 | CR ---
DATE OF CONSULTATION: 04/28/2019 REASON FOR CONSULTATION: Nonfunctional continuous ambulatory peritoneal dialysis catheter. HISTORY OF PRESENT ILLNESS: The patient is a 49-year-old woman who has had progressive renal failure and approximately a year and half ago had undergone placement of a continuous ambulatory peritoneal dialysis catheter. This had functioned apparently adequately for a time, but recently she has had problems with poor dialysis, missed dialysis and pleural effusions. She was admitted to the hospital on April 24. She was found to have pleural effusions and significant elevations of her renal function tests with a BUN of 103 and a creatinine of 16. She has previously been on hemodialysis via a thigh graft on the right and she was started back on some hemodialysis. I have now been requested to remove her peritoneal dialysis catheter as this has not been working for her. MEDICATIONS: Are as noted in her record. ALLERGIES: Are reported to [facility]. MEDICAL HISTORY: Includes her end-stage renal disease, diabetes mellitus type 2, chronic hypertension, hyperlipidemia, heart failure, peripheral vascular disease, anemia and hypothyroidism. SURGICAL HISTORY: Includes cardiac catheterization with stent placement, hysterectomy, section, and tubal ligation. 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 She has a fistula in her thigh on the right. SOCIAL AND FAMILY HISTORY: Are as noted. PHYSICAL EXAMINATION: Reveals a pleasant woman lying quietly in the hospital bed. She is alert and oriented. Heart exam shows a regular rate and rhythm. She is not tachycardiac. Lungs sounds are basically clear. The abdomen is flat. She has a peritoneal dialysis catheter in the midabdomen, perhaps slightly to the left of the midline. The abdomen is soft and nontender without appreciable mass. LABORATORY STUDIES: Include a CBC from yesterday showing a white count of 6.8, hemoglobin of 11, hematocrit 37 and platelet count of 152,000. Her chemistries on the show normal electrolytes with a BUN of 32, creatinine 7.45 and a glucose of 112. C-reactive protein is 4.06 with an albumin of 2.4. IMPRESSION: End-stage renal disease on hemodialysis with a peritoneal dialysis catheter that will not be used any longer. PLAN: The patient was counseled for removal of her CAPD catheter. I have recommended that we do this tomorrow, that would be April 29, in the operating room under local anesthesia with monitored anesthesia care. She had an opportunity to ask questions. She was counseled regarding the potential risks, which are fairly minimal. She desires to proceed and we will therefore plan on surgery on the . LESVIA
[2019-04-29] MEDS: CALCITRIOL 0.25 MCG CAP (S0169) PO SCH (08:37)
[2019-04-29] MEDS: METOPROLOL TART 25 MG TABLET PO SCH ×2 (08:37→20:11)
[2019-04-29] MEDS: ISOSORBIDE MON. (IMDUR) 30 MG XR TAB PO SCH (08:37)
[2019-04-29 12:20] VITALS: BP 135/65
[2019-04-29 14:30] VITALS: BP 133/63
--- NOTE | 2019-04-29 15:07 | IPNPDOC ---
Subjective Date Seen The patient was seen on 04/29/19. Subjective Chief Complaint/HPI Ms Trivedi is a 49 year old female with ESRD, not compliant with PD admitted to the hospital due to type 2 NSTEMI in the setting of PD noncompliance, pericardial effusion, decompensated HFpEF, worsening kidney failure, hypoxemic respiratory failure. Pt is seen sitting up in bed this morning, visiting with her family. She is reportedly doing much better today; on room air. She denied any dyspnea. Pt stated she has some pain on the L posterior thorax, radiates up under the armpit, worse with deep breaths. She has found her current pain medications to be somewhat helpful. She is willing to try a heating pad. She continues to agree to have her port removed today. HD yesterday - typically feels worn out right after, but typically feels more energized the next day, she is feeling better today. General: Denies: Chills, Night Sweats, Fatigue, Malaise Constitutional: Denies: Chills, Fever, Malaise, Night Sweats Eyes: Denies: Pain ENT: Denies: Head Aches Skin: Denies: Rash Pulmonary: Denies: Dyspnea, Cough Cardiovascular: Reports: Chest Pain; Denies: Palpitations, Orthopnea, Edema, Lt Headedness Gastrointestinal: Denies: Nausea, Vomiting, Abdominal Pain Genitourinary: Denies: Dysuria Musculoskeletal: Reports: Back Pain (see HPI ) Neurological: Denies: Weakness, Numbness Psych: Reports: Mood Normal Objective Physical Examination General Exam: Positive: Alert, Cooperative, No Acute Distress Eye Exam: Positive: Conjunctiva & lids normal; Negative: Sclera icteric ENT Exam: Positive: Atraumatic, Mucous membr. moist/pink, Pharynx Normal, Tongue Midline Neck Exam: Positive: Supple, JVD; Negative: thyromegaly Chest Exam: Negative: Clear to auscultation, Normal air movement (diminished air movement b/l lung bases, no crackles this a.m.) Heart Exam: Positive: Rate Normal, Regular Rhythm, Normal S1, Normal S2, Murmurs (2/6 SM ); Negative: Gallops, Rubs Abdomen Exam: Positive: Normal bowel sounds, Soft; Negative: Tenderness Extremity Exam: Negative: Clubbing, Cyanosis, Edema Skin Exam: Positive: Nl turgor and temperature Neuro Exam: Positive: Normal Speech Psych Exam: Positive: Mood NL Assessment /Plan Assessment Ms Trivedi is a 49 year old female with ESRD, not compliant with PD admitted to the hospital due to type 2 NSTEMI in the setting of PD noncompliance, pericardial effusion, decompensated HFpEF, worsening kidney failure, hypoxemic r espiratory failure. Pt has a PMHx that includes DM, CHF, HTN. She has continued to improve with HD; last done yesterday and pt feels some improvement. IMAGING: -Abdomen U/S 1. Cholelithiasis without sonographic evidence for acute cholecystitis. 2. 1.8 cm simple right renal cyst. 3. Moderate right pleural effusion identified. -Abdomen XR Nonspecific bowel gas pattern. TTE: 1. Low normal global left ventricular systolic function with probably mild concentric left ventricular hypertrophy. There are some features of grade 1 left ventricular diastolic dysfunction, abnormal relaxation. 2. Aortic valve sclerosis with mild aortic regurgitation but no aortic stenosis. 3. Mitral annulus calcification with trace mitral regurgitation and mildly enlarged left atrium. 4. Mild tricuspid regurgitation with mild pulmonary hypertension. 5. Moderate pulmonic regurgitation noted. 6. There are some features of elevated central venous pressure, the inferior vena cava is mildly enlarged. 7. Moderate pericardial effusion noted, no evidence of cardiac chamber compromise. There was also no significant variation noted across the mitral inflow mitral valve inflow. 8. Bilateral pleural effusion noted. 9. This was compared with the most recent echocardiogram on 02/06/2019, no remarkable changes. 04/28/2019 CXR: Moderate hazy bibasilar opacity consistent with pleural effusions and discoid atelectasis persists essentially unchanged. Cardiomegaly is observed. Pulmonary vascular cephalization is seen. There is some fissural thickening. Findings are unchanged. 04/29/2019 CXR: Bilateral pleural effusions persist, increased on the left compared with yesterday's radiograph and larger on the left than the right. Moderate cardiac enlargement is again seen unchanged. Pulmonary vasculature is cephalized. No new infiltrate is seen. 1. Pericardial Effusion - Cardiothoracic surgery consulted, appreciate their input and recommendations, to be managed medically via volume optimization by nephrology - Echocardiogram showing moderate pericardial effusion without function comprom ise, Rh factor negative and HAWA negative. Respiratory panel negative - per nephrology peritoneal fluid contained < 40WBCs, <2RBCs - continued HD per nephrology Type 2 NSTEMI: in the setting of robert volume overload and decompensated HFpEF in the setting of noncompliance with PD. - Cardiac markers were mildly elevated, then downtrended - EKG was without ST changes - continues to deny CP - SOB much improved 2. End stage renal disease now on HD - pt was previously non-compliant with PD for some time - started HD with significantly improved symptoms; last treatment 04/28 - Cr. improved as expected - surgery consulted per nephrology to remove port, will be done today 3. Type 2 diabetes mellitus - SSI while inpatient with hypoglycemic protocol - a1c was 6.6 4. Acute on chronic Diastolic CHF in the setting of non compliance with PD - TTE with plethoric IVC, pericardial effusion, preserved EF and grade 1 diastolic dysfunction - HD per nephrology - pt has improved significantly since admission 5. Chronic Hypertension - continue metoprolol, isosorbide mononitrate, lisinopril 6. Hypothyroidism - TSH elevated, free T4 borderline low and T3 low - continue Synthroid, will need outpatient optimization 7. Anemia of Chronic Disease - 2/2 ESRD; Hgb remains stable - monitor CBC daily Plan/VTE VTE Prophylaxis Ordered?: Yes (Heparin ) VS, I&O, 24H, Fishbone Vital Signs/I&O Vital Signs Date Time Temp Pulse Resp B/P (MAP) Pulse Ox O2 Delivery O2 Flow Rate FiO2 04/29/19 12:22 1.0 04/29/19 12:20 97.8 70 18 135/65 (88) 97 Nasal Cannula I&O- Last 24 Hours up to 6 AM 04/29/19 06:00 Intake Total 660 ml Output Total 3000 ml Balance -2340 ml Laboratory Data 24H LABS Laboratory Tests 2 04/28/19 17:19: Bedside Glucose (Misc Panel) 109H 04/28/19 19:28: Bedside Glucose (Misc Panel) 113H 04/29/19 06:13: Nucleated Red Blood Cells % (auto) 0.0, Anion Gap 6L, Glomerular Filtration Rate 9.4L, Calcium Level 8.5 04/29/19 11:23: Bedside Glucose (Misc Panel) 104 04/29/19 11:49: Bedside Glucose (Misc Panel) 107H CBC/BMP Laboratory Tests 04/29/19 06:13 Microbiology Microbiology 04/27/19 Gram Stain - Final, Complete 04/27/19 Body Fluid Culture - Final, Complete 04/24/19 Respiratory Virus Panel (PCR) (FERNANDO) - Final, Complete Attending Note I have personally performed a face to face evaluation of the patient and reviewed the above assessment and plan . I agree to the above with the following addendums/ amendments. Elevated troponins in the setting of robert volume overload with decompensated HFpEF in the setting of noncompliance with PD, and ESRD this is false positive troponins rather than Type 2 NSTEMI. No signs of infarction in EKG or Echo. MAVIS PARISH PA-C Apr 29, 2019 15:07 NATALIE ORTIZ MD May 03, 2019 19:44
[2019-04-29] MEDS ORDERED: LIDOCAINE 1% SDV INJ 30 ML VIAL As Ordered ONE ×2 (15:12→17:00)
[2019-04-29] MEDS ORDERED: propofoL 200 MG/20 ML VIAL As Ordered ONE (15:53)
[2019-04-29] MEDS ORDERED: LIDOCAINE 2% INJ 100 MG/5 ML SDV (FOR ANES.) As Ordered ONE (15:53)
[2019-04-29] MEDS ORDERED: ONDANSETRON 4MG/2ML VIAL (J2405) As Ordered ONE (15:57)
[2019-04-29] MEDS ORDERED: fentaNYL 100 MCG/2 ML INJECTION (J3010) As Ordered ONE (15:58)
[2019-04-29] MEDS ORDERED: MIDAZOLAM INJ 2 MG/2 ML VIAL (J2250) As Ordered ONE (15:58)
[2019-04-29] MEDS ORDERED: DARBEPOETIN 100 MCG/0.5 ML *DIALYSIS* SYRINGE (J0882) IV SCH (16:45)
--- NOTE | 2019-04-29 17:42 | IPN ---
DATE: 04/29/2019 Ms. Trivedi is seen this morning on her bedside. She is feeling well and denies any dyspnea, chest pain, nausea or vomiting. She is going to have her peritoneal dialysis catheter removed today. The patient has no fever or chills. Peritoneal fluid was checked and no evidence of peritonitis noted. PHYSICAL EXAMINATION: Temperature 97.8 degrees Fahrenheit, heart rate 70 per minute and respiratory rate 18 per minute. Blood pressure 142/72 mmHg and oxygen saturation 97% on room air. Head is atraumatic. Neck: Supple and without jugular venous distention (JVD) or thyroid enlargement. Heart: Sounds are regular but somewhat muffled. Lungs with slightly diminished breath sounds at bases. Abdomen: Soft and nontender. Bowel sounds are normal. Peritoneal dialysis catheter is intact. Extremities have no cyanosis or clubbing. Neurologically she is awake, alert and oriented times three. Today's labs show WBC count 8.0, hemoglobin 10.2 and hematocrit 33.8. Platelets 150. Sodium 138, potassium 4.6, CO2 of 28, BUN 18 and creatinine 5.19. Glucose 126 and calcium 8.5. PROBLEMS: 1. End-stage renal disease. The patient was dialyzed yesterday and next dialysis will be scheduled for tomorrow. She is very well dialyzed now. Her peritoneal dialysis catheter will be removed as she has failed on peritoneal dialysis, which has not been working well. 2. Pericardial and pleural effusions. We have been removing fluid aggressively, and she has been dialyzed frequently. Her serial chest x-rays have been done with improving pleural effusions. Cardiac enlargement on the x-rays is unchanged. We will continue with aggressive fluid removal with dialysis treatments. 3. Anemia. Her anemia has been stable and does not need any urgent intervention at present. We will continue with Aranesp once a week.
[2019-04-29] MEDS ORDERED: ONDANSETRON 4MG/2ML VIAL (J2405) IV PRN (18:00)
[2019-04-29] MEDS ORDERED: fentaNYL 100 MCG/2 ML INJECTION (J3010) IV PRN (18:00)
[2019-04-29 18:53] VITALS: BP 94/52
[2019-04-29] MEDS: HEPARIN SOD (PORCINE) 5000 UNITS/ML VIAL SC SCH (20:11)
[2019-04-29] MEDS: GENTAMICIN SULFATE 0.1% OINT 15 GM TOP SCH (20:20)
[2019-04-29] MEDS: NORCO, ANEXSIA 5/325MG TABLET (HYDROcodone/ACETAMINOPHEN) PO PRN (20:31)
[2019-04-29] MEDS: MORPHINE 2 MG/ML 1ML VIAL (J2270) IV PRN (23:34)
[2019-04-30] MEDS: MORPHINE 2 MG/ML 1ML VIAL (J2270) IV PRN (03:37)
[2019-04-30] MEDS: LEVOTHYROXINE 100MCG TABLET (0.1MG) PO SCH (05:42)
[2019-04-30] MEDS: (RENVELA) SEVELAMER **CARBONate** 800 MG TAB PO SCH ×3 (06:48→17:38)
[2019-04-30] MEDS: CALCITRIOL 0.25 MCG CAP (S0169) PO SCH (06:48)
[2019-04-30 07:03] LABS: HEMATOCRIT 36.6 % (36.0-47.0); HEMOGLOBIN 10.6 g/dl (12.0-15.5); MEAN CORPUSCULAR HEMOGLOBIN 29.7 pg (27.0-33.0); MEAN CORPUSCULAR VOLUME 102.5 fl (80.0-96.0); PLATELET COUNT, AUTOMATED 152 10^3/uL (150-450); RED BLOOD COUNT 3.57 10^6/uL (4.00-5.40)
[2019-04-30 07:26] LABS: CREATININE FOR GFR 6.71 MG/DL (0.55-1.30); POTASSIUM SERUM 5.2 MEQ/L (3.5-5.1)
[2019-04-30] MEDS: HumaLOG INSULIN (NovoLOG) PER UNIT SC SCH ×4 (07:30→20:51)
--- NOTE | 2019-04-30 08:48 | RO ---
DATE OF PROCEDURE: 04/29/2019 PREOPERATIVE DIAGNOSIS: Nonfunctional continuous ambulatory peritoneal dialysis catheter. POSTOPERATIVE DIAGNOSIS: Nonfunctional continuous ambulatory peritoneal dialysis catheter. PROCEDURE PERFORMED: Explantation of nonfunctional continuous ambulatory peritoneal dialysis catheter. SURGEON: Dr. Hoff ANESTHESIA: Local with 1% Xylocaine with monitored anesthesia care. INDICATIONS FOR THE PROCEDURE: Patient is a 49-year-old woman with end-stage renal disease on dialysis. She has been doing peritoneal dialysis recently using a peritoneal dialysis catheter that was placed approximately 6-7 months ago. Her dialysis has apparently become inefficient and she has now been converted to hemodialysis through an existing fistula in her right thigh. She is now for removal of her peritoneal dialysis catheter. OPERATIVE PROCEDURE: The patient was brought to the operating room and placed in the table in a supine position. She received sedation from anesthesia. The patient's abdomen was prepped and draped in a sterile fashion. Initially, the catheter was identified exiting the upper quadrant on the left just to the left of the midline. A thin ellipse of skin was outlined longitudinally around the exit site. Local anesthesia was achieved with infiltration of 1% Xylocaine as needed during the course of the procedure. The skin ellipse was incised and using a combination of sharp and cautery dissection the external pledget was dissected from surrounding subcutaneous fatty tissues. The catheter then extended inferiorly. There appeared to be a pocket of chronic debris or granulation tissue around a portion of the catheter and this was excised with the catheter. The catheter extended inferiorly through the subcutaneous tissues and the second pledget was actually implanted slightly below the umbilicus. I followed the catheter in the subcutaneous tissues, leaving the overlying skin intact and then made a second small incision at the midline just below the umbilicus. The catheter was identified through the second incision and the catheter was cut and the upper portion removed. With gentle traction on the remaining catheter the second pledget was identified, implanted into the rectus muscle and this was dissected free again with a combination of sharp and cautery dissection right down to the peritoneum, which was opened and the catheter removed. The peritoneum was then closed with interrupted simple sutures of #2-0 Vicryl. The fascia was closed with interrupted simple sutures of #2-0 Vicryl. The wounds were inspected for hemostasis and this was ensured with the cautery. The subcutaneous tissues were closed with #3-0 Vicryl. The skin edges were brought into approximation with #3-0 Vicryl and both incisions were then closed with running subcuticular sutures of #4-0 Vicryl. Steri-Strips were applied followed by sterile dressings. The patient tolerated the procedure well. She was allowed to waken in the operating room and was transported to the recovery room in stable condition. LESVIA
[2019-04-30] MEDS: ISOSORBIDE MON. (IMDUR) 30 MG XR TAB PO SCH (08:52)
[2019-04-30] MEDS: HEPARIN SOD (PORCINE) 5000 UNITS/ML VIAL SC SCH ×2 (08:53→20:44)
[2019-04-30] MEDS: METOPROLOL TART 25 MG TABLET PO SCH ×2 (08:53→20:46)
[2019-04-30] MEDS ORDERED: HEPARIN 1,000 UNITS/ML 10ML VIAL (FOR RADIOLOGY& DIALYSIS ONLY) IV ONE (10:45)
--- NOTE | 2019-04-30 13:31 | IPNPDOC ---
Subjective Date Seen The patient was seen on 04/30/19. Subjective Chief Complaint/HPI Ms Trivedi is a 49 year old female with ESRD, not compliant with PD admitted to the hospital due to type 2 NSTEMI in the setting of PD noncompliance, pericardial effusion, decompensated HFpEF, worsening kidney failure, hypoxemic respiratory failure. Pt is seen in dialysis this morning. She is a little sore over her surgical site and over the L side of her back. She believes that her pain is currently well- managed inpatient. She is a little tired this morning as is normal for her with dialysis. She continues to deny any CP. She reports that while walking to dialysis without oxygen, she became blue and was struggling to breathe. She will be dialyzed again tomorrow per Dr. Acevedo. General: Denies: Chills, Night Sweats, Fatigue Constitutional: Denies: Chills, Fever, Night Sweats Eyes: Denies: Pain ENT: Denies: Head Aches Skin: Denies: Rash Pulmonary: Reports: Dyspnea (see HPI ); Denies: Cough Cardiovascular: Denies: Chest Pain, Palpitations, Edema, Lt Headedness Gastrointestinal: Reports: Abdominal Pain (sore over surgical site ) Genitourinary: Denies: Dysuria Musculoskeletal: Reports: Back Pain Neurological: Denies: Weakness, Numbness Psych: Reports: Mood Normal Objective Physical Examination General Exam: Positive: Cooperative, No Acute Distress Eye Exam: Positive: Conjunctiva & lids normal; Negative: Sclera icteric ENT Exam: Positive: Atraumatic, Mucous membr. moist/pink, Pharynx Normal, Tongue Midline Neck Exam: Positive: Supple, JVD; Negative: thyromegaly Chest Exam: Positive: Normal air movement (diminished air movement b/l lung bases, no crackles this a.m.); Negative: Clear to auscultation Heart Exam: Positive: Rate Normal, Regular Rhythm, Normal S1, Normal S2, Gallops (wide-split S2 vs gallop ), Murmurs (2/6 SM ); Negative: Rubs Abdomen Exam: Positive: Normal bowel sounds, Soft, Tenderness (slight TTP over incision ) Extremity Exam: Negative: Clubbing, Cyanosis, Edema Skin Exam: Positive: Nl turgor and temperature Neuro Exam: Positive: Normal Speech Psych Exam: Positive: Mood NL Assessment /Plan Assessment Ms Trivedi is a 49 year old female with ESRD, not compliant with PD admitted to the hospital due to type 2 NSTEMI in the setting of PD noncompliance, pericardial effusion, decompensated HFpEF, worsening kidney failure, hypoxemic respiratory failure. Pt has a PMHx that includes DM, CHF, HTN. She has continued to improve with HD; last done yesterday and pt feels some improvement. IMAGING: -Abdomen U/S 1. Cholelithiasis without sonographic evidence for acute cholecystitis. 2. 1.8 cm simple right renal cyst. 3. Moderate right pleural effusion identified. -Abdomen XR Nonspecific bowel gas pattern. TTE: 1. Low normal global left ventricular systolic function with probably mild concentric left ventricular hypertrophy. There are some features of grade 1 left ventricular diastolic dysfunction, abnormal relaxation. 2. Aortic valve sclerosis with mild aortic regurgitation but no aortic stenosis . 3. Mitral annulus calcification with trace mitral regurgitation and mildly enlarged left atrium. 4. Mild tricuspid regurgitation with mild pulmonary hypertension. 5. Moderate pulmonic regurgitation noted. 6. There are some features of elevated central venous pressure, the inferior vena cava is mildly enlarged. 7. Moderate pericardial effusion noted, no evidence of cardiac chamber compromise. There was also no significant variation noted across the mitral inflow mitral valve inflow. 8. Bilateral pleural effusion noted. 9. This was compared with the most recent echocardiogram on 02/06/2019, no remarkable changes. 04/28/2019 CXR: Moderate hazy bibasilar opacity consistent with pleural effusions and discoid atelectasis persists essentially unchanged. Cardiomegaly is observed. Pulmonary vascular cephalization is seen. There is some fissural thickening. Findings are unchanged. 04/29/2019 CXR: Bilateral pleural effusions persist, increased on the left compared with yesterday's radiograph and larger on the left than the right. Moderate cardiac enlargement is again seen unchanged. Pulmonary vasculature is cephalized. No new infiltrate is seen. 1. Pericardial Effusion - Per CT surgery - pt to be managed medically via volume optimization by nephrology - Echocardiogram showing moderate pericardial effusion without function compromise, Rh factor negative and HAWA negative. Respiratory panel negative - per nephrology peritoneal fluid contained < 40WBCs, <2RBCs - continued HD per nephrology Type 2 NSTEMI: in the setting of robert volume overload and decompensated HFpEF in the setting of noncompliance with PD. - Cardiac markers were mildly elevated, then downtrended - EKG was without ST changes - continues to deny CP - SOB much improved 2. End stage renal disease now on HD - pt was previously non-compliant with PD for some time - started HD with significantly improved symptoms; in treatment today, next scheduled for tomorrow - Cr. stable with dialysis - PD removed by Dr. Hoff yesterday as it had failed and pt non-compliance - continued management per nephrology 3. Type 2 diabetes mellitus - SSI while inpatient with hypoglycemic protocol - a1c was 6.6 4. Acute on chronic Diastolic CHF in the setting of non compliance with PD - TTE with plethoric IVC, pericardial effusion, preserved EF and grade 1 diastolic dysfunction - HD per nephrology - pt has improved significantly since admission 5. Chronic Hypertension - continue metoprolol, isosorbide mononitrate, lisinopril 6. Hypothyroidism - TSH elevated, free T4 borderline low and T3 low - continue Synthroid, will need outpatient optimization 7. Anemia of Chronic Disease - 2/2 ESRD; Hgb remains stable - monitor CBC daily Plan/VTE VTE Prophylaxis Ordered?: Yes (Heparin ) VS, I&O, 24H, Fishbone Vital Signs/I&O Vital Signs Date Time Temp Pulse Resp B/P (MAP) Pulse Ox O2 Delivery O2 Flow Rate FiO2 04/30/19 08:53 67 94/52 04/30/19 08:00 1.0 04/30/19 03:47 16 Nasal Cannula 04/29/19 18:53 96.9 94 I&O- Last 24 Hours up to 6 AM 04/30/19 06:00 Intake Total 915 ml Output Total 20 ml Balance 895 ml Laboratory Data 24H LABS Laboratory Tests 2 04/29/19 14:12: Bedside Glucose (Misc Panel) 116H 04/29/19 18:04: Bedside Glucose (Misc Panel) 125H 04/29/19 18:35: Bedside Glucose (Misc Panel) 124H 04/29/19 19:55: Bedside Glucose (Misc Panel) 117H 04/30/19 06:42: Nucleated Red Blood Cells % (auto) 0.0, Anion Gap 8, Glomerular Filtration Rate 7.0L, Calcium Level 9.0 04/30/19 08:27: Bedside Glucose (Misc Panel) 169H CBC/BMP Laboratory Tests 04/30/19 06:42 Microbiology Microbiology 04/27/19 Gram Stain - Final, Complete 04/27/19 Body Fluid Culture - Final, Complete 04/24/19 Respiratory Virus Panel (PCR) (FERNANDO) - Final, Complete Attending Note I have personally performed a face to face evaluation of the patient and reviewed the above assessment and plan . I agree to the above with the following addendums/ amendments. Elevated troponins in the setting of robert volume overload with decompensated HFpEF in the setting of noncompliance with PD, and ESRD this is false positive troponins rather than Type 2 NSTEMI. No signs of infarction in EKG MAVIS PARISH PA-C Apr 30, 2019 13:30 NATALIE ORTIZ MD May 03, 2019 19:43
[2019-04-30 14:00] VITALS: BP 135/72
[2019-04-30] MEDS: NORCO, ANEXSIA 5/325MG TABLET (HYDROcodone/ACETAMINOPHEN) PO PRN ×2 (14:19→20:45)
--- NOTE | 2019-04-30 14:36 | IPN ---
DATE OF VISIT: 04/30/2019 Ms. Trivedi is seen this morning on her bedside during hemodialysis. She had her peritoneal dialysis catheter removed yesterday and reports pain in her lower abdomen. She denies any nausea or vomiting. She was short of breath this morning and remains on supplemental oxygen. Yesterday her chest x-ray did show increased pleural effusions and she does have cardiomegaly with large pericardial effusion. On physical exam, temperature 98 degrees Fahrenheit, heart rate 70 per minute and respiratory rate 16 per minute. Blood pressure 94/52 mmHg earlier and now during dialysis 130/60 mmHg. Oxygen saturation is now 98%. Head is atraumatic. Neck supple and jugular venous distention (JVD) difficult to be assessed. Lungs have diminished breath sounds the lower half. Heart sounds are muffled and without a pericardial friction rub. Abdomen soft and mild tenderness is present at the catheter removal site and lower abdomen. Extremities have no cyanosis or clubbing. Right thigh arteriovenous (AV) graft is currently being used for dialysis. Today's labs show WBC count 8.0, hemoglobin 10.6 and hematocrit 36.6. Platelets 152. Sodium 138, potassium 5.2, CO2 27, BUN 25 and creatinine 6.71. PROBLEMS: 1. End-stage renal disease. Patient is being dialyzed today and she is tolerating her hemodialysis well. 2. Bilateral pleural effusions and pericardial effusion. She remains short of breath and requiring oxygen supplementation. Chest x-ray yesterday did show persistent pleural effusions. We are trying to remove about 3 liters of fluid today and plan on dialyzing her again tomorrow for further fluid removal. 3. Hyperkalemia. She has mild hyperkalemia, which will be corrected with dialysis, and no other intervention is needed. 4. Anemia. Her anemia is stable and does not need any urgent intervention at present.
--- NOTE | 2019-04-30 17:50 | REP ---
Chest x-ray: Two views. History: Pleural and pericardial effusion. Comparison study: April 29, 2019. Findings: There is moderate cardiomegaly with a water bottle heart shape. There are bilateral pleural effusions blunting the pleural angles left greater than right. These appear somewhat improved from yesterday's radiograph on the frontal and lateral views. Some vascular cephalization is again noted. Impression: Bilateral effusions left greater than right slightly improved. Moderate cardiomegaly unchanged. Electronically Signed by Levar Moe MD 04/30/2019 06:19 P
[2019-04-30 20:00] VITALS: BP 137/63
[2019-04-30] MEDS: GENTAMICIN SULFATE 0.1% OINT 15 GM TOP SCH (22:30)
[2019-05-01] MEDS: NORCO, ANEXSIA 5/325MG TABLET (HYDROcodone/ACETAMINOPHEN) PO PRN ×3 (02:50→16:00)
[2019-05-01] MEDS: LEVOTHYROXINE 100MCG TABLET (0.1MG) PO SCH (05:19)
[2019-05-01 06:00] VITALS: BP 141/68
[2019-05-01 06:50] LABS: HEMATOCRIT 34.2 % (36.0-47.0); HEMOGLOBIN 9.9 g/dl (12.0-15.5); MEAN CORPUSCULAR HEMOGLOBIN 29.6 pg (27.0-33.0); MEAN CORPUSCULAR HGB CONC 28.9 g/dl (32.0-36.5); MEAN CORPUSCULAR VOLUME 102.4 fl (80.0-96.0); PLATELET COUNT, AUTOMATED 156 10^3/uL (150-450); RED BLOOD COUNT 3.34 10^6/uL (4.00-5.40); WHITE BLOOD COUNT 7.6 10^3/uL (4.0-10.0)
[2019-05-01 07:15] LABS: CALCIUM LEVEL 8.7 MG/DL (8.5-10.1); CREATININE FOR GFR 5.07 MG/DL (0.55-1.30); GLOMERULAR FILTRATION RATE 9.7 (>58); POTASSIUM SERUM 4.5 MEQ/L (3.5-5.1)
[2019-05-01] MEDS: HumaLOG INSULIN (NovoLOG) PER UNIT SC SCH ×4 (07:30→21:00)
[2019-05-01] MEDS: (RENVELA) SEVELAMER **CARBONate** 800 MG TAB PO SCH ×3 (08:35→18:16)
[2019-05-01] MEDS: CALCITRIOL 0.25 MCG CAP (S0169) PO SCH (08:35)
[2019-05-01] MEDS: ISOSORBIDE MON. (IMDUR) 30 MG XR TAB PO SCH (08:35)
[2019-05-01] MEDS: METOPROLOL TART 25 MG TABLET PO SCH ×2 (08:36→21:39)
[2019-05-01] MEDS: HEPARIN SOD (PORCINE) 5000 UNITS/ML VIAL SC SCH ×2 (08:51→21:39)
[2019-05-01] MEDS ORDERED: HEPARIN 1,000 UNITS/ML 10ML VIAL (FOR RADIOLOGY& DIALYSIS ONLY) IV ONE (11:00)
--- NOTE | 2019-05-01 11:39 | IPNPDOC ---
Subjective Date Seen The patient was seen on 05/01/19. Subjective Chief Complaint/HPI Ms Trivedi is a 49 year old female with ESRD, not compliant with PD admitted to the hospital due to type 2 NSTEMI in the setting of PD noncompliance, pericardial effusion, decompensated HFpEF, worsening kidney failure, hypoxemic respiratory failure. Pt is seen in dialysis this morning. She has some soreness over her surgical site and continues with L back and shoulder pain with movement. Pt continues to report that her pain is very well managed. She continues to feel improved daily. General: Reports: Normal Appetite; Denies: Chills, Night Sweats, Malaise Constitutional: Denies: Chills, Fever, Malaise, Night Sweats Eyes: Denies: Pain ENT: Denies: Head Aches Skin: Denies: Rash Pulmonary: Denies: Dyspnea, Cough Cardiovascular: Denies: Chest Pain, Palpitations, Orthopnea, Edema, Lt Headedness Gastrointestinal: Reports: Abdominal Pain Genitourinary: Denies: Dysuria Musculoskeletal: Reports: Back Pain, Shoulder Pain; Denies: Neck Pain, Joint Pain, Muscle Pain, Spasms Neurological: Denies: Weakness, Numbness Psych: Reports: Mood Normal Objective Physical Examination General Exam: Positive: Alert, Cooperative, No Acute Distress Eye Exam: Positive: Conjunctiva & lids normal; Negative: Sclera icteric ENT Exam: Positive: Atraumatic, Mucous membr. moist/pink, Pharynx Normal, Tongue Midline Neck Exam: Positive: Supple, JVD; Negative: thyromegaly Chest Exam: Positive: Diminished (b/l ); Negative: Normal air movement, Rales, Rhonchi, Wheezing Heart Exam: Positive: Rate Normal, Regular Rhythm, Normal S1, Normal S2, Gallops, Murmurs (2/6 SM) Abdomen Exam: Positive: Normal bowel sounds, Soft, Tenderness (TTP over incision ) Extremity Exam: Negative: Clubbing, Cyanosis, Edema Skin Exam: Positive: Nl turgor and temperature Neuro Exam: Positive: Normal Speech, Cranial Nerves 3-12 NL Psych Exam: Positive: Mood NL Assessment /Plan Assessment Ms Trivedi is a 49 year old female with ESRD, not compliant with PD admitted to the hospital due to type 2 NSTEMI in the setting of PD noncompliance, pericardial effusion, decompensated HFpEF, worsening kidney failure, hypoxemic respiratory failure. Pt has a PMHx that includes DM, CHF, HTN. She has continued to improve with HD. IMAGING: -Abdomen U/S 1. Cholelithiasis without sonographic evidence for acute cholecystitis. 2. 1.8 cm simple right renal cyst. 3. Moderate right pleural effusion identified. -Abdomen XR Nonspecific bowel gas pattern. TTE: 1. Low normal global left ventricular systolic function with probably mild concentric left ventricular hypertrophy. There are some features of grade 1 left ventricular diastolic dysfunction, abnormal relaxation. 2. Aortic valve sclerosis with mild aortic regurgitation but no aortic stenosis. 3. Mitral annulus calcification with trace mitral regurgitation and mildly enlarged left atrium. 4. Mild tricuspid regurgitation with mild pulmonary hypertension. 5. Moderate pulmonic regurgitation noted. 6. There are some features of elevated central venous pressure, the inferior vena cava is mildly enlarged. 7. Moderate pericardial effusion noted, no evidence of cardiac chamber compromise. There was also no significant variation noted across the mitral inflow mitral valve inflow. 8. Bilateral pleural effusion noted. 9. This was compared with the most recent echocardiogram on 02/06/2019, no remarkable changes. 04/28/2019 CXR: Moderate hazy bibasilar opacity consistent with pleural effusions and discoid atelectasis persists essentially unchanged. Cardiomegaly is observed. Pulmonary vascular cephalization is seen. There is some fissural thickening. Findings are unchanged. 04/29/2019 CXR: Bilateral pleural effusions persist, increased on the left compared with yesterday's radiograph and larger on the left than the right. Moderate cardiac enlargement is again seen unchanged. Pulmonary vasculature is cephalized. No new infiltrate is seen. 04/30/2019 CXR: Bilateral effusions left greater than right slightly improved. M oderate cardiomegaly unchanged. 1. Pericardial Effusion/Pleural Effusion bilateral - Per CT surgery - pt to be managed medically via volume optimization per nephrology - Echocardiogram showing moderate pericardial effusion without function compromise, Rh factor negative and HAWA negative. Respiratory panel negative - per nephrology peritoneal fluid = < 40WBCs, <2RBCs - supplemental O2 for dyspnea - continued HD per nephrology Type 2 NSTEMI: in the setting of robert volume overload and decompensated HFpEF in the setting of noncompliance with PD. - Cardiac markers were mildly elevated, then downtrended - EKG was without ST changes - continues to deny CP - SOB much improved 2. End stage renal disease now on HD - pt was previously non-compliant with PD for some time - started HD with significantly improved symptoms - Cr. stable with dialysis - PD removed by Dr. Hoff as it had failed and pt non-compliance - continued management per nephrology 3. Type 2 diabetes mellitus - SSI while inpatient with hypoglycemic protocol - a1c was 6.6 4. Acute on chronic Diastolic CHF in the setting of non compliance with PD - TTE with plethoric IVC, pericardial effusion, preserved EF and grade 1 diastolic dysfunction - HD per nephrology - pt has improved significantly since admission 5. Chronic Hypertension - continue metoprolol, isosorbide mononitrate, lisinopril 6. Hypothyroidism - TSH elevated, free T4 borderline low and T3 low - continue Synthroid, will need outpatient optimization 7. Anemia of Chronic Disease - 2/2 ESRD; Hgb remains stable - monitor CBC daily 8. Mild Hyperkalemia - HD per nephrology Plan/VTE VTE Prophylaxis Ordered?: Yes (Heparin ) VS, I&O, 24H, Fishbone Vital Signs/I&O Vital Signs Date Time Temp Pulse Resp B/P (MAP) Pulse Ox O2 Delivery O2 Flow Rate FiO2 05/01/19 08:52 18 Room Air 05/01/19 06:00 97.6 67 141/68 (92) 97 1.0 I&O- Last 24 Hours up to 6 AM 05/01/19 06:00 Intake Total 600 ml Output Total 3000 ml Balance -2400 ml Laboratory Data 24H LABS Laboratory Tests 2 04/30/19 12:36: Bedside Glucose (Misc Panel) 126H 04/30/19 16:30: Bedside Glucose (Misc Panel) 154H 04/30/19 20:48: Bedside Glucose (Misc Panel) 95 05/01/19 06:33: Nucleated Red Blood Cells % (auto) 0.0, Anion Gap 6L, Glomerular Filtration Rate 9.7L, Calcium Level 8.7 CBC/BMP Laboratory Tests 05/01/19 06:33 Microbiology Microbiology 04/27/19 Gram Stain - Final, Complete 04/27/19 Body Fluid Culture - Final, Complete 04/24/19 Respiratory Virus Panel (PCR) (FERNANDO) - Final, Complete Attending Note I have personally performed a face to face evaluation of the patient and reviewed the above assessment and plan . I agree to the above with the following addendums/ amendments. Elevated troponins in the setting of robert volume overload with decompensated HFpEF in the setting of noncompliance with PD, and ESRD this is false positive troponins rather than Type 2 NSTEMI. No signs of infarction in EKG or Echo. MAVIS PARISH PA-C May 01, 2019 11:39 NATALIE ORTIZ MD May 03, 2019 19:42
--- NOTE | 2019-05-01 14:33 | IPN ---
DATE: 05/01/2019 Ms. Trivedi is seen this morning during hemodialysis. She is feeling better but still has lower abdominal discomfort after removal of peritoneal dialysis catheter. She denies any dyspnea or chest pain. PHYSICAL EXAMINATION: Temperature 97.6 degrees Fahrenheit, heart rate 68 per minute and respiratory rate 16 per minute. Blood pressure 141/68 mmHg and oxygen saturation 97%. Head is atraumatic. Neck is supple and without any significant jugular venous distention (JVD). There is no oral thrush or ulcers. Heart sounds are regular and without a pericardial friction rub. Lungs with diminished breath sounds at bases. Abdomen is soft and minimally tender in the lower abdominal area. Bowel sounds are normal. Extremities are without any cyanosis or clubbing. Right thigh AV graft is currently being used for dialysis. Today's labs show WBC count 7.6, hemoglobin 9.9 and hematocrit 34.2. Sodium 136, potassium 4.5, CO2 28, BUN 17 and creatinine 5.07. Glucose 119 and calcium 8.7. PROBLEMS: 1. End-stage renal disease. The patient is being dialyzed today again due to pleural effusions and pericardial effusion. She was dialyzed yesterday and she is tolerating her dialysis treatment very well. We are trying to remove another 3 liters of fluid today. 2. Pericardial effusion and pleural effusions. The patient did have uremic pericarditis and volume overload causing pleural and pericardial effusions. We have been aggressively removing fluid. Her chest x-ray done yesterday did not show any significant improvement. She did have bilateral effusions, left greater than the right, only slightly improved. She also has moderate cardiomegaly, which is unchanged. We will repeat imaging and also consider to repeat her echocardiogram or chest CT scan for further evaluation of her pericardial effusion. 3. Anemia. Her anemia is stable at present following transfusion. She is receiving Aranesp 100 mcg once a week, which will be continued. 4. Hypertension. Blood pressure is reasonably well-controlled on current antihypertensive medications.
[2019-05-01] MEDS: MOM 30ML SUSPENSION UDC PO PRN (16:00)
[2019-05-01 21:00] VITALS: BP 161/76
[2019-05-01] MEDS: ONDANSETRON 4MG/2ML VIAL (J2405) IV PRN (21:39)
[2019-05-01] MEDS: GENTAMICIN SULFATE 0.1% OINT 15 GM TOP SCH (21:43)
[2019-05-01] MEDS: CALCIUM CARBONATE 500 MG CHEW U/D PO PRN (22:39)
[2019-05-02] MEDS: ONDANSETRON 4MG/2ML VIAL (J2405) IV PRN ×3 (01:44→21:19)
[2019-05-02 05:38] VITALS: BP 200/101
[2019-05-02] MEDS: ISOSORBIDE MON. (IMDUR) 30 MG XR TAB PO SCH (05:39)
[2019-05-02] MEDS: CALCIUM CARBONATE 500 MG CHEW U/D PO PRN (05:39)
[2019-05-02] MEDS: METOPROLOL TART 25 MG TABLET PO SCH (05:40)
[2019-05-02] MEDS: CALCITRIOL 0.25 MCG CAP (S0169) PO SCH (05:40)
[2019-05-02] MEDS: LEVOTHYROXINE 100MCG TABLET (0.1MG) PO SCH (05:40)
[2019-05-02 06:58] LABS: HEMATOCRIT 36.9 % (36.0-47.0); HEMOGLOBIN 11.2 g/dl (12.0-15.5); MEAN CORPUSCULAR HEMOGLOBIN 30.5 pg (27.0-33.0); MEAN CORPUSCULAR HGB CONC 30.4 g/dl (32.0-36.5); MEAN CORPUSCULAR VOLUME 100.5 fl (80.0-96.0); PLATELET COUNT, AUTOMATED 189 10^3/uL (150-450); RED BLOOD COUNT 3.67 10^6/uL (4.00-5.40); WHITE BLOOD COUNT 10.8 10^3/uL (4.0-10.0)
[2019-05-02 07:21] LABS: CALCIUM LEVEL 9.4 MG/DL (8.5-10.1); CREATININE FOR GFR 4.37 MG/DL (0.55-1.30); GLOMERULAR FILTRATION RATE 11.5 (>58); POTASSIUM SERUM 4.9 MEQ/L (3.5-5.1)
[2019-05-02] MEDS: HumaLOG INSULIN (NovoLOG) PER UNIT SC SCH ×4 (07:30→21:00)
[2019-05-02] MEDS: (RENVELA) SEVELAMER **CARBONate** 800 MG TAB PO SCH ×3 (08:00→21:16)
[2019-05-02] MEDS ORDERED: METOPROLOL TART 25 MG TABLET PO ONE (09:00)
[2019-05-02] MEDS: amLODIPine 10 MG TAB PO SCH (09:00)
[2019-05-02] MEDS: HEPARIN SOD (PORCINE) 5000 UNITS/ML VIAL SC SCH ×2 (09:00→21:29)
[2019-05-02 10:00] VITALS: BP 140/60
[2019-05-02] MEDS ORDERED: HEPARIN 1,000 UNITS/ML 10ML VIAL (FOR RADIOLOGY& DIALYSIS ONLY) IV ONE (10:15)
--- NOTE | 2019-05-02 12:24 | IPNPDOC ---
Text Note Date of Service The patient was seen on 05/02/19. NOTE Chief Complaint/HPI Ms Trivedi is a 49 year old female with ESRD, not compliant with PD admitted to the hospital due to type 2 NSTEMI in the setting of PD noncompliance, perica rdial effusion, decompensated HFpEF, worsening kidney failure, hypoxemic respiratory failure. Pt is seen in her room this morning. She feels unwell - has had n/v overnight this morning and very little relief with prn Zofran. She also noted worsening abdominal pain. Pt feels very uncomfortable this morning; denied flatus. Had a small BM yesterday after being given MOM. Per nursing she will have HD today based on her lab results. BP was elevated early this am. pt thinks likely due to her gagging and vomiting. Seen again in the afternoon during dialysis; pt has had some relief to her n/v and is now resting. Review of Systems General: Reports: Normal Appetite; Denies: Chills, Night Sweats, Malaise Constitutional: Denies: Chills, Fever, Malaise, Night Sweats Eyes: Denies: Pain ENT: Denies: Head Aches Skin: Denies: Rash Pulmonary: Denies: Dyspnea, Cough Cardiovascular: Denies: Chest Pain, Palpitations, Orthopnea, Edema, Lt Headedness Gastrointestinal: Reports: Abdominal Pain Genitourinary: Denies: Dysuria Musculoskeletal: Reports: Back Pain, Shoulder Pain; Denies: Neck Pain, Joint Pain, Muscle Pain, Spasms Neurological: Denies: Weakness, Numbness Psych: Reports: Mood Normal Physical Examination General Exam: Positive: Alert, Cooperative, No Acute Distress Eye Exam: Positive: Conjunctiva & lids normal; Negative: Sclera icteric ENT Exam: Positive: Atraumatic, Mucous membr. moist/pink, Pharynx Normal, Tongue Midline Neck Exam: Positive: Supple, JVD; Negative: thyromegaly Chest Exam: Positive: Diminished (b/l ); Negative: Normal air movement, Rales, Rhonchi, Wheezing Heart Exam: Positive: Rate Normal, Regular Rhythm, Normal S1, Normal S2, Gal lops, Murmurs (2/6 SM) Abdomen Exam: Positive: hypoactive except over LLQ, Soft, Tenderness - diffu sely TTP, abdomen distended, area around the incision sl induration Extremity Exam: Negative: Clubbing, Cyanosis, Edema Skin Exam: Positive: Nl turgor and temperature Neuro Exam: Positive: Normal Speech, Cranial Nerves 3-12 NL Psych Exam: Positive: Mood NL Assessment Ms Trivedi is a 49 year old female with ESRD, not compliant with PD admitted to the hospital due to type 2 NSTEMI in the setting of PD noncompliance, pericardial effusion, decompensated HFpEF, worsening kidney failure, hypoxemic respiratory failure. Pt has a PMHx that includes DM, CHF, HTN. She has continued to improve with HD. IMAGING: -Abdomen U/S 1. Cholelithiasis without sonographic evidence for acute cholecystitis. 2. 1.8 cm simple right renal cyst. 3. Moderate right pleural effusion identified. -Abdomen XR Nonspecific bowel gas pattern. TTE: 1. Low normal global left ventricular systolic function with probably mild concentric left ventricular hypertrophy. There are some features of grade 1 lef t ventricular diastolic dysfunction, abnormal relaxation. 2. Aortic valve sclerosis with mild aortic regurgitation but no aortic stenosis. 3. Mitral annulus calcification with trace mitral regurgitation and mildly enlarged left atrium. 4. Mild tricuspid regurgitation with mild pulmonary hypertension. 5. Moderate pulmonic regurgitation noted. 6. There are some features of elevated central venous pressure, the inferior vena cava is mildly enlarged. 7. Moderate pericardial effusion noted, no evidence of cardiac chamber compromise. There was also no significant variation noted across the mitral inflow mitral valve inflow. 8. Bilateral pleural effusion noted. 9. This was compared with the most recent echocardiogram on 02/06/2019, no remarkable changes. 04/28/2019 CXR: Moderate hazy bibasilar opacity consistent with pleural effusions and discoid atelectasis persists essentially unchanged. Cardiomegaly is observed. Pulmonary vascular cephalization is seen. There is some fissural thickening. Findings are unchanged. 04/29/2019 CXR: Bilateral pleural effusions persist, increased on the left compared with yesterday's radiograph and larger on the left than the right. Moderate cardiac enlargement is again seen unchanged. Pulmonary vasculature is cephalized. No new infiltrate is seen. 04/30/2019 CXR: Bilateral effusions left greater than right slightly improved. Moderate cardiomegaly unchanged. 1. Pericardial Effusion/Pleural Effusion bilateral - Per CT surgery - pt to be managed medically via volume optimization per nephrology - Echocardiogram showing moderate pericardial effusion without function compromise, Rh factor negative and HAWA negative. Respiratory panel negative - per nephrology peritoneal fluid = < 40WBCs, <2RBCs - supplemental O2 for dyspnea - continued HD per nephrology - schedule ct chest to re-assess Type 2 NSTEMI: in the setting of robert volume overload and decompensated HFpEF in the setting of noncompliance with PD. - Cardiac markers were mildly elevated, then downtrended - EKG was without ST changes - continues to deny CP - SOB much improved 2. End stage renal disease now on HD - pt was previously non-compliant with PD for some time - started HD with significantly improved symptoms - Cr. stable with dialysis - PD removed by Dr. Hoff as it had failed and pt non-compliance - continued management per nephrology 3. Type 2 diabetes mellitus - SSI while inpatient with hypoglycemic protocol - a1c was 6.6 4. Acute on chronic Diastolic CHF in the setting of non compliance with PD - TTE with plethoric IVC, pericardial effusion, preserved EF and grade 1 diastolic dysfunction - HD per nephrology - pt has improved significantly since admission 5. Chronic Hypertension - continue metoprolol, isosorbide mononitrate, lisinopril 6. Hypothyroidism - TSH elevated, free T4 borderline low and T3 low - continue Synthroid, will need outpatient optimization 7. Anemia of Chronic Disease - 2/2 ESRD; Hgb remains stable - monitor CBC daily 8. Mild Hyperkalemia - HD per nephrology 9. Abd. pain/distention/N/V - KUB pending VS,Fishbone, I+O VS, Fishbone, I+O Laboratory Tests 05/02/19 06:45 Vital Signs Date Time Temp Pulse Resp B/P (MAP) Pulse Ox O2 Delivery O2 Flow Rate FiO2 05/02/19 09:03 89 140/62 05/02/19 05:38 98.1 19 94 Nasal Cannula 1.0 I&O- Last 24 Hours up to 6 AM 05/02/19 06:00 Intake Total 2580 ml Output Total 3200 ml Balance -620 ml Attending Note Attending Note I have personally performed a face to face evaluation of the patient and reviewed the above assessment and plan . I agree to the above with the following addendums/ amendments. Elevated troponins in the setting of robert volume overload with decompensated HFpEF in the setting of noncompliance with PD, and ESRD this is false positive troponins rather than Type 2 NSTEMI. No signs of infarction in EKG or Echo. Nausea and vomiting possibly related to GERD will be started on PPI MAVIS PARISH PA-C May 02, 2019 12:24 NATALIE ORTIZ MD May 03, 2019 19:41
--- NOTE | 2019-05-02 13:37 | REP ---
KUB: Single view. HISTORY: Abdominal distension. Pain. Nausea and vomiting. COMPARISON STUDY: December 18, 2018. FINDINGS: Bowel gas pattern is normal with air and stool in a nondistended colon. The previously noted indwelling dialysis catheter has been removed. Vascular calcification is noted. Flank stripes appear intact. Psoas margins are symmetric. IMPRESSION: Vascular calcification. Normal bowel gas pattern. No acute abnormality. Electronically Signed by Levar Moe MD 05/02/2019 08:46 P
--- NOTE | 2019-05-02 16:17 | IPN ---
DATE OF VISIT: 05/02/2019 Ms. Trivedi is seen this morning on her bedside. She is still not feeling well and reports abdominal pain, nausea and vomiting. She reports that she did not eat this morning. She has no dyspnea or chest pain. On physical exam, temperature 98 degrees Fahrenheit, heart rate 88 per minute and respiratory rate 18 per minute. Blood pressure down to 140/62 mmHg now while earlier it was recorded at 200/100. Head is atraumatic. Neck is supple and without jugular venous distention (JVD) or thyroid enlargement. Heart sounds are regular and without a pericardial friction rub. Lungs have much improved air entry with slightly diminished breath sounds at bases. Abdomen is soft and tender in the lower abdominal area. Surgical incisions are clean and dry. Neurologically, she is awake, alert and oriented times three. Today's labs show WBC count 10.8, hemoglobin 11.2 and hematocrit 36.9. Platelets 189. Sodium 140, potassium 4.8, CO2 of 31, BUN 16 and creatinine 4.37. PROBLEMS: 1. End-stage renal disease. Patient has been dialyzed frequently and she was dialyzed yesterday. We have been dialyzing her frequently due to pericardial and pleural effusions which are improving. 2. Pericardial effusion. Most likely she had uremic pericarditis due to inadequate peritoneal dialysis She has been frequently hemodialyzed and we anticipate improved pericardial effusion. I have discussed with Dr. Dorsey and suggested to get a CT scan of chest tomorrow. We will plan to dialyze her again today. 3. Hypervolemia and bilateral pleural effusions. She did have hypervolemia which has now improved and volume status is much better with frequent dialysis and fluid removal. We will followup the chest CT scan to see if her pleural effusions have improved. 4. Abdominal pain and nausea. She had her peritoneal dialysis catheter removed a couple of days ago, however continues to have lower abdominal discomfort and nausea. She had an abdominal x-ray done today and will wait for the results. 5. Hypertension. Blood pressure is well-controlled and no changes are being made today. MTDD
[2019-05-02 20:28] VITALS: BP 140/59
[2019-05-02] MEDS: METOPROLOL TART 50 MG TAB PO SCH (21:19)
[2019-05-02] MEDS: OMEPRAZOLE 20 MG CAP PO SCH (21:19)
[2019-05-02] MEDS: GENTAMICIN SULFATE 0.1% OINT 15 GM TOP SCH (21:21)
[2019-05-03] MEDS: LEVOTHYROXINE 100MCG TABLET (0.1MG) PO SCH (05:33)
[2019-05-03 06:00] VITALS: BP 163/81
[2019-05-03 06:40] LABS: HEMATOCRIT 35.9 % (36.0-47.0); HEMOGLOBIN 10.9 g/dl (12.0-15.5); MEAN CORPUSCULAR HEMOGLOBIN 30.2 pg (27.0-33.0); MEAN CORPUSCULAR HGB CONC 30.4 g/dl (32.0-36.5); MEAN CORPUSCULAR VOLUME 99.4 fl (80.0-96.0); PLATELET COUNT, AUTOMATED 213 10^3/uL (150-450); RED BLOOD COUNT 3.61 10^6/uL (4.00-5.40); WHITE BLOOD COUNT 9.1 10^3/uL (4.0-10.0)
[2019-05-03 07:09] LABS: CALCIUM LEVEL 8.7 MG/DL (8.5-10.1); CREATININE FOR GFR 3.4 MG/DL (0.55-1.30); GLOMERULAR FILTRATION RATE 15.3 (>58); POTASSIUM SERUM 4.1 MEQ/L (3.5-5.1)
[2019-05-03] MEDS: HumaLOG INSULIN (NovoLOG) PER UNIT SC SCH ×4 (08:21→21:00)
[2019-05-03] MEDS: amLODIPine 10 MG TAB PO SCH (08:22)
[2019-05-03] MEDS: HEPARIN SOD (PORCINE) 5000 UNITS/ML VIAL SC SCH ×2 (08:22→21:53)
[2019-05-03] MEDS: (RENVELA) SEVELAMER **CARBONate** 800 MG TAB PO SCH ×3 (08:22→17:47)
[2019-05-03] MEDS: OMEPRAZOLE 20 MG CAP PO SCH ×2 (08:22→21:50)
[2019-05-03] MEDS: ISOSORBIDE MON. (IMDUR) 30 MG XR TAB PO SCH (08:23)
[2019-05-03] MEDS: METOPROLOL TART 50 MG TAB PO SCH ×2 (08:23→21:52)
[2019-05-03] MEDS: CALCITRIOL 0.25 MCG CAP (S0169) PO SCH (08:23)
--- NOTE | 2019-05-03 11:54 | REP ---
CT chest without contrast: History: Followup on pleural and pericardial effusions. Comparison chest CT study April 24, 2019 and May 29, 2015. CT findings: There are bilateral pleural effusions small to moderate on the left and small on the right. There is fairly extensive atelectasis with air bronchograms in the left lower lobe and some plate-like atelectatic changes are seen in the left upper lobe and lingular segment. There is some fissural thickening bilaterally. There is moderate to large pericardial effusion again noted. In comparison with the most recent study of April 24, 2019, there is somewhat less pericardial fluid and the pleural effusions have decreased as well. There is improved aeration in the right base. The atelectatic changes and air bronchograms in the left base are similar. There was an extrathoracic subcutaneous edema pattern diffusely on the April 24, 2019 study which has improved. There is fairly extensive coronary artery vascular calcification. No hilar or mediastinal mass or adenopathy. Impression: Some improvement noted in pleural and pericardial effusions since the most recent prior study. Improved aeration right base. Some persistent atelectasis in both bases left greater than right. Electronically Signed by Levar Moe MD 05/03/2019 12:35 P
[2019-05-03] MEDS ORDERED: MIRALAX *UNIT DOSE* 17GM PACKET PO ONE (13:00)
[2019-05-03] MEDS ORDERED: BISACODYL 10 MG SUPP PR ONE (13:00)
--- NOTE | 2019-05-03 13:46 | IPN ---
DATE OF SERVICE: 05/03/2019 SUBJECTIVE: The patient was seen and examined at the bedside today morning. She is afebrile, hemodynamically stable. She was dialyzed yesterday. She did tolerate the hemodialysis procedure well, 2.5 liters of fluid was removed. The patient also came back after getting the CT scan of the chest done to look at the pleural effusions. The patient herself denies any active complaints and she reports that she has an outpatient dialysis spot at [facility] on Sunday, Sunday, Sunday at 7 o'clock in the morning. OBJECTIVE: Vital signs: Temperature is 99.6 degrees Fahrenheit, blood pressure 163/81, pulse is 80, respiratory rate 18, saturating 99% on nasal cannula at 1 liter. Intake and output: There is no urine output recorded. Ultrafiltration was 2.5 liters with dialysis yesterday. Weight on the bed scale is 62.3 kg. PHYSICAL EXAMINATION: GENERAL: Patient is awake, alert, oriented times three, laying in bed in no apparent distress. HEAD AND NECK EXAM: Extraocular muscles intact. Pupils equally round and reactive to light. Mucous membranes are moist. NECK: Neck is supple. There is no jugular venous distention (JVD). CARDIOVASCULAR: S1, S2 regular rate. No murmur, rub or gallop. No edema of the bilateral lower extremities. RESPIRATORY: Chest is clear to auscultation bilaterally in the upper lung zones. There are decreased breath sounds bilaterally at the bases. ABDOMEN: Soft, positive bowel sounds, mildly tender to deep palpation in the right upper quadrant. PD catheter has been taken out. MUSCULOSKELETAL: No clubbing or cyanosis. Pulses are 2+. She has a right thigh AV graft which has good thrill and bruit. [employer]: No focal deficit. She has decreased vision in both eyes. Otherwise, the patient was extremities and follows commands. LAB REVIEW: CBC showed WBC of 9.1, hemoglobin 10.9, platelets of 113. BMP showed sodium 135, potassium 4.1, chloride 99, bicarb 28, BUN 12, creatinine is 3.4. IMAGING STUDIES: A CT scan of the chest was done today morning, official report is pending, but as reviewed by myself the patient has mild persistent bilateral pleural effusions. CURRENT INPATIENT MEDICATIONS: The patient's medications were all reviewed by me. There is no significant change in the medications today as compared with yesterday. Her metoprolol dose is 50 mg p.o. twice a day. ASSESSMENT/PLAN: 1. End-stage renal disease. The patient is dialysis dependent, PD catheter has been removed. She is going to be on hemodialysis from now on because of recurrent admissions with pleural and pericardial effusions and noncompliant with peritoneal dialysis at home. She has been dialyzed [id number] 3 days in a row for the last 3 days. 2. Pericardial effusion. The patient had uremic pericarditis because of noncompliance with peritoneal dialysis at home. Repeat CT of the chest was done today, official report is pending. 3. Bilateral pleural effusions. The patient had [id number] ultrafiltration and dialysis for 3 days in a row, 8.5 mL of fluid has been removed so far. No urgent need of dialysis today. Official report of the CT scan is pending. 4. Abdominal pain and nausea. PD catheter has been removed. Pain in the abdomen is getting better. X-ray of the abdomen was inconclusive. 5. Hypertension with end-stage renal disease and hypertensive heart disease. Continue current dose of amlodipine 10 mg p.o. daily, isosorbide 30 mg p.o. daily, metoprolol 50 mg p.o. twice a day. 6. Secondary hyperparathyroidism. Continue current dose of calcitriol 0.5 mcg alternating with 0.25 mcg. 7. Anemia in end-stage renal disease. Continue current dose of Aranesp 100 mcg IV with dialysis, hemoglobin level is optimal. DISPOSITION: Pending report of CT scan of the chest for pericardial effusion and pleural effusions, if that shows improvement, then the patient should be discharged for continuation of hemodialysis as outpatient.
[2019-05-03 14:33] VITALS: BP 119/63
--- NOTE | 2019-05-03 19:33 | IPNPDOC ---
Text Note Date of Service The patient was seen on 05/03/19. NOTE SUBJECTIVE: Feels better today, No nausea or vomiting , no sob, Her abdomen is less sore today. Says she always has stomach problems from her diabetes and takes a medicine for it. It was restarted by Dr Acevedo so feels better today. She also says theat she is constipated. Had a small hard bowel movement yesterday after many days. Physical Examination General Exam: Positive: Alert, Cooperative, No Acute Distress Eye Exam: Positive: Conjunctiva & lids normal; Negative: Sclera icteric ENT Exam: Positive: Atraumatic, Mucous membr. moist/pink, Pharynx Normal, Tongue Midline Neck Exam: Positive: Supple, JVD; Negative: thyromegaly Chest Exam: Positive: Diminished (b/l ); Negative: Normal air movement, Rales, Rhonchi, Wheezing Heart Exam: Positive: Rate Normal, Regular Rhythm, Normal S1, Normal S2, Gallops, Murmurs (2/6 SM) Abdomen Exam: Soft , mild generalized tenderness, bowel sounds normal. Extremity Exam: Negative: Clubbing, Cyanosis, Edema, AVF in the right thigh. Skin Exam: Positive: Nl turgor and temperature Neuro Exam: Positive: Normal Speech, Cranial Nerves 3-12 NL Psych Exam: Positive: Mood NL Assessment Ms Trivedi is a 49 year old female with ESRD, not compliant with PD admitted to the hospital due to Acute on Chronic diastolic CHF with fluid overload due to PD noncompliance, pericardial effusion, bilateral pleural efussion, hypoxemic respiratory failure. Pt has a PMHx that includes DM, CHF, HTN. She has continued to improve with HD. IMAGING: -Abdomen U/S 1. Cholelithiasis without sonographic evidence for acute cholecystitis. 2. 1.8 cm simple right renal cyst. 3. Moderate right pleural effusion identified. -Abdomen XR Nonspecific bowel gas pattern. TTE: 1. Low normal global left ventricular systolic function with probably mild concentric left ventricular hypertrophy. There are some features of grade 1 left ventricular diastolic dysfunction, abnormal relaxation. 2. Aortic valve sclerosis with mild aortic regurgitation but no aortic stenosis. 3. Mitral annulus calcification with trace mitral regurgitation and mildly enlarged left atrium. 4. Mild tricuspid regurgitation with mild pulmonary hypertension. 5. Moderate pulmonic regurgitation noted. 6. There are some features of elevated central venous pressure, the inferior vena cava is mildly enlarged. 7. Moderate pericardial effusion noted, no evidence of cardiac chamber compromise. There was also no significant variation noted across the mitral inflow mitral valve inflow. 8. Bilateral pleural effusion noted. 9. This was compared with the most recent echocardiogram on 02/06/2019, no remarkable changes. 04/28/2019 CXR: Moderate hazy bibasilar opacity consistent with pleural effusions and discoid atelectasis persists essentially unchanged. Cardiomegaly is observed. Pulmonary vascular cephalization is seen. There is some fissural thickening. Findings are unchanged. 04/29/2019 CXR: Bilateral pleural effusions persist, increased on the left compared with yesterday's radiograph and larger on the left than the right. Moderate cardiac enlargement is again seen unchanged. Pulmonary vasculature is cephalized. No new infiltrate is seen. 04/30/2019 CXR: Bilateral effusions left greater than right slightly improved. Moderate cardiomegaly unchanged. Pericardial Effusion/Pleural Effusion bilateral - Per CT surgery - pt to be managed medically via volume optimization per nephrology - Echocardiogram showing moderate pericardial effusion without function compromise, Rh factor negative and HAWA negative. Respiratory panel negative - peritoneal fluid = < 40WBCs, <2RBCs - supplemental O2 for dyspnea - continued HD per nephrology - Repeat CT chest slight improvement of bilateral pleural effusions and pericardial effusion. Elevated troponins in the setting of robert volume overload with decompensated HFpEF in the setting of noncompliance with PD, and ESRD this is false positive troponins. No signs of infarction in EKG or Echo. End stage renal disease now on HD now - pt was previously non-compliant with PD for some time - started HD with significantly improved symptoms - Cr. stable with dialysis - PD catheter removed by Dr. Hoff as it had failed and pt non-compliance - continued management per nephrology Type 2 diabetes mellitus - SSI while inpatient with hypoglycemic protocol - a1c was 6.6 Acute on chronic Diastolic CHF in the setting of non compliance with PD - TTE with plethoric IVC, pericardial effusion, preserved EF and grade 1 diastolic dysfunction - HD per nephrology - pt has improved significantly since admission Chronic Hypertension - continue metoprolol, isosorbide mononitrate, lisinopril Hypothyroid - TSH elevated, free T4 borderline low and T3 low - continue Synthroid, will need outpatient optimization Anemia of Chronic Disease - 2/2 ESRD; Hgb remains stable - monitor CBC daily Mild Hyperkalemia resolved. GERD on omeprazole VS,Fishbone, I+O VS, Fishbone, I+O Laboratory Tests 05/03/19 06:09 Vital Signs Date Time Temp Pulse Resp B/P (MAP) Pulse Ox O2 Delivery O2 Flow Rate FiO2 05/03/19 14:33 97.9 66 16 119/63 (81) 100 Nasal Cannula 1.0 I&O- Last 24 Hours up to 6 AM 05/03/19 06:00 Intake Total 440 ml Output Total 2500 ml Balance -2060 ml NATALIE ORTIZ MD May 03, 2019 19:33
[2019-05-03] MEDS: GENTAMICIN SULFATE 0.1% OINT 15 GM TOP SCH (21:53)
[2019-05-03 22:00] VITALS: BP 139/67
[2019-05-04] MEDS: LEVOTHYROXINE 100MCG TABLET (0.1MG) PO SCH (05:13)
[2019-05-04 06:00] VITALS: BP 137/64
[2019-05-04] MEDS ORDERED: MIRA3350 PO (07:22)
[2019-05-04] MEDS: (RENVELA) SEVELAMER **CARBONate** 800 MG TAB PO SCH (08:09)
[2019-05-04] MEDS: HEPARIN SOD (PORCINE) 5000 UNITS/ML VIAL SC SCH (08:09)
[2019-05-04] MEDS: HumaLOG INSULIN (NovoLOG) PER UNIT SC SCH (08:09)
[2019-05-04] MEDS: CALCITRIOL 0.25 MCG CAP (S0169) PO SCH (08:09)
[2019-05-04] MEDS: ISOSORBIDE MON. (IMDUR) 30 MG XR TAB PO SCH (08:10)
[2019-05-04] MEDS: amLODIPine 10 MG TAB PO SCH (08:10)
[2019-05-04] MEDS: OMEPRAZOLE 20 MG CAP PO SCH (08:10)
[2019-05-04 08:11] VITALS: BP 137/64
[2019-05-04] MEDS: METOPROLOL TART 50 MG TAB PO SCH (08:11)
== END 2019-05-04 11:25 | disposition home or self-care (01) | DRG 951 ==
LOC: M ED 15:23 → EDBD 15:23 → M ED INP 19:38 → ENRESERVTM 20:00 → ENRESERVDT 20:00 → ENRESERVTM 20:27 → M ICU 20:52 → M PCU 04-27 05:55 → M MS4PR 04-29 12:08 → M MS5PR 05-01 15:40
PROVIDERS: ADMIT Internal Medicine; ATTEND Internal Medicine Nephrology
PROC: 5A1D70Z Performance of Urinary Filtration, Intermittent, Less than 6 Hours Per Day (ICD-10-PCS; 2019-04-25)
PROC: 30233N1 Transfusion of Nonautologous Red Blood Cells into Peripheral Vein, Percutaneous Approach (ICD-10-PCS; 2019-04-26)
PROC: 0WPG03Z Removal of Infusion Device from Peritoneal Cavity, Open Approach (ICD-10-PCS; principal; 2019-04-29 18:00)
DX: I31.3 Pericardial effusion (noninflammatory) (principal); I21.A1 Myocardial infarction type 2; J96.91 Respiratory failure, unspecified with hypoxia; I50.33 Acute on chronic diastolic (congestive) heart failure; E11.22 Type 2 diabetes mellitus with diabetic chronic kidney disease; N18.6 End stage renal disease; I08.1 Rheumatic disorders of both mitral and tricuspid valves; I13.2 Hypertensive heart and chronic kidney disease with heart failure and with stage 5 chronic kidney disease, or end stage renal disease; N25.81 Secondary hyperparathyroidism of renal origin; E11.42 Type 2 diabetes mellitus with diabetic polyneuropathy; I32 Pericarditis in diseases classified elsewhere; E11.51 Type 2 diabetes mellitus with diabetic peripheral angiopathy without gangrene; E11.319 Type 2 diabetes mellitus with unspecified diabetic retinopathy without macular edema; E87.5 Hyperkalemia; K59.00 Constipation, unspecified; H54.8 Legal blindness, as defined in USA; E78.5 Hyperlipidemia, unspecified; E03.9 Hypothyroidism, unspecified; Z99.2 Dependence on renal dialysis; Z95.5 Presence of coronary angioplasty implant and graft; Z87.891 Personal history of nicotine dependence; D63.1 Anemia in chronic kidney disease; Z88.0 Allergy status to penicillin; Z79.4 Long term (current) use of insulin; Z79.899 Other long term (current) drug therapy; Z91.15 Patient's noncompliance with renal dialysis; Z91.11 Patient's noncompliance with dietary regimen

== ENCOUNTER 2019-05-07 19:26 | Inpatient (IN) | payer OTHER ==
[~2019-05-07] VITALS: Ht 160 cm; Wt 59.8 kg
[~2019-05-07 19:26] MED LIST changes: +FLUC200T2 PO; +MIRA3350 PO; +VITA1CAP25 PO
--- NOTE | 2019-05-07 20:14 | ECGEPIP ---
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
[2019-05-07 20:35] LABS: BASO # 0.1 10^3/uL (0.0-0.2); EOS % 0.3 % (0.0-3.0); HEMATOCRIT 44.6 % (36.0-47.0); HEMOGLOBIN 13.5 g/dl (12.0-15.5); LYMPH # 0.7 10^3/uL (1.5-5.0); MEAN CORPUSCULAR HEMOGLOBIN 29.9 pg (27.0-33.0); MEAN CORPUSCULAR HGB CONC 30.3 g/dl (32.0-36.5); MEAN CORPUSCULAR VOLUME 98.9 fl (80.0-96.0); MONO # 0.9 10^3/uL (0.0-0.8); MONO % 7.1 % (0.0-5.0); NEUTROPHILS # 11.3 10^3/uL (1.5-8.5); PLATELET COUNT, AUTOMATED 255 10^3/uL (150-450); RED BLOOD COUNT 4.51 10^6/uL (4.00-5.40); WHITE BLOOD COUNT 13.1 10^3/uL (4.0-10.0)
[2019-05-07 21:09] LABS: ALBUMIN 3.1 GM/DL (3.2-5.2); BILIRUBIN,DIRECT 0.2 MG/DL (0.0-0.2); BILIRUBIN,TOTAL 0.7 MG/DL (0.2-1.0); CALCIUM LEVEL 9.7 MG/DL (8.5-10.1); CK-MB VALUE MASS 2.8 NG/ML (<3.6); CREATININE FOR GFR 6.13 MG/DL (0.55-1.30); GLOMERULAR FILTRATION RATE 7.8 (>58); MB/CK RELATIVE INDEX 4.67 (< OR =4); POTASSIUM SERUM 5.1 MEQ/L (3.5-5.1); TOTAL PROTEIN 7.5 GM/DL (6.4-8.2); TROPONIN I 0.03 NG/ML (< 0.10)
[2019-05-07] MEDS ORDERED: ONDANSETRON 4MG/2ML VIAL (J2405) As Ordered ONE (21:29)
[2019-05-07] MEDS ORDERED: ONDANSETRON 4MG/2ML VIAL (J2405) IV ONE (21:45)
[2019-05-07] MEDS ORDERED: LABETALOL HCL 100 MG/20 ML VIAL IV STA (22:02)
[2019-05-07] MEDS ORDERED: MIRA3350 PO (22:11)
[2019-05-07] MEDS ORDERED: VITA50005 PO (22:11)
--- NOTE | 2019-05-07 22:58 | REPVR ---
PROCEDURE INFORMATION: Exam: CT Abdomen And Pelvis Without Contrast Exam date and time: 05/07/2019 10:44 PM Age: 49 years old Clinical indication: Abdominal pain; Generalized; Prior surgery; Additional info: Gen abd pain, vomiting eval for sbo TECHNIQUE: Imaging protocol: Computed tomography of the abdomen and pelvis without contrast. Radiation optimization: All CT scans at this facility use at least one of these dose optimization techniques: automated exposure control; mA and/or kV adjustment per patient size (includes targeted exams where dose is matched to clinical indication); or iterative reconstruction. COMPARISON: CT ABD PELVIS W/O CONTRAST 09/19/2018 9:14 PM FINDINGS: Lungs: Possible focus of pneumonitis at the left lung base which should be correlated clinically. Pleural space: Small bilateral pleural effusions. Compressive atelectasis both lung bases. Liver: Normal. No mass. Gallbladder and bile ducts: There are gallstones present. No evidence of cholecystitis demonstrated. Pancreas: Normal. No ductal dilation. Spleen: Normal. No splenomegaly. Adrenals: There is bilateral adrenal hyperplasia. Kidneys and ureters: Bilateral nonobstructive renal calculi. Bilateral renal vascular calcifications. Stomach and bowel: There is increased feces throughout the colon consistent with constipation. There is apparent thickening of the wall of the rectum although not well evaluated on this scan lacking oral and intravenous contrast media. Correlation with digital exam and colonoscopy may be necessary. Dilated small bowel loops in the upper abdomen may be related to colonic obstruction in association with an incompetent ileocecal valve, however other considerations of an ileus, regional enteritis or small bowel obstruction to be evaluated clinically. Appendix: No evidence of appendicitis. Intraperitoneal space: Unremarkable. No free air. No significant fluid collection. Vasculature: The aorta demonstrates moderate atherosclerotic calcification. Lymph nodes: Unremarkable. No enlarged lymph nodes. Bladder: Unremarkable as visualized. Reproductive: Unremarkable as visualized. Bones/joints: Unremarkable. No acute fracture. Soft tissues: Unremarkable. IMPRESSION: 1. Possible focus of pneumonitis at the left lung base which should be correlated clinically. 2. There are gallstones present. No evidence of cholecystitis demonstrated. 3. There is bilateral adrenal hyperplasia. 4. There is increased feces throughout the colon consistent with constipation. 5. There is apparent thickening of the wall of the rectum although not well evaluated on this scan lacking oral and intravenous contrast media. Correlation with digital exam and colonoscopy may be necessary. 6. Dilated small bowel loops in the upper abdomen may be related to colonic obstruction in association with an incompetent ileocecal valve, however other considerations of an ileus, regional enteritis or small bowel obstruction to be evaluated clinically. Electronically signed by: Bry Vyas On 05/07/2019 22:58:27 PM
[2019-05-08] VITALS (7 sets, daily range): BP systolic 148–182; BP diastolic 68–111
[2019-05-08] MEDS ORDERED: ACETAMINOPHEN TAB 650MG DOSE (2X325MG) PO PRN
[2019-05-08] MEDS ORDERED: DEXTROSE 50% 50 ML SYRINGE IV PRN
[2019-05-08] MEDS ORDERED: GLUCAGON FOR INJ 1 MG VIAL (J1610) SC PRN
[2019-05-08] MEDS ORDERED: GLUCOSE 4 GM CHEW TABLET PO PRN
[2019-05-08] MEDS ORDERED: LEVEMIR (INSULIN DETEMIR) 1 UNITS/0.01ML SC ONE (00:30)
[2019-05-08] MEDS ORDERED: LEVOTHYROXINE 100 MCG (0.1MG) VIAL IV ONE (00:30)
--- NOTE | 2019-05-08 00:50 | REP ---
Clinical: Nasogastric tube placement. Technique: Single portable upright view of the chest. Comparison: 04/30/2019. Findings: Moderate left pleural effusion along with bibasilar infiltrates and atelectasis (left greater than right) minimally increased from prior examination. Stable mild cardiomegaly. No pneumothorax. Nasogastric tube in satisfactory position. Skeletal structures are intact. Impression: 1. Moderate left pleural effusion with bibasilar opacities/atelectasis minimally increased. 2. Nasogastric tube in satisfactory position. Electronically Signed by Bin Liang MD 05/08/2019 12:41 A
[2019-05-08] MEDS ORDERED: LABETALOL HCL 100 MG/20 ML VIAL IV ONE (03:30)
--- NOTE | 2019-05-08 04:13 | HPEPDOC ---
General Date of Admission May 08, 2019 at 00:00 Date of Service: May 08, 2019 Attending Physician: LILLY SCHROEDER MD Chief Complaint The patient is a 49-year-old female admitted with a reason for visit of Colonic Obstruction,Ileus,Pneumoitis. Source: Patient Exam Limitations: Clinical conditions Timing/Duration: 24 hours Associated Symptoms: Nausea, Vomiting (copious non bloody non biliary ), Other (abdominal pain) History of Present Illness 49 yo woman with ESRD recently switched from PF to HD, history of SBP, diabetes mellitus type 2,hypertension, hyperlipidemia, heart failure with reduced ejection fraction, peripheral vascular disease, anemia in end-stage renal dis ease, hypothyroidism, diabetic neuropathy who presented to the ED with abdominal pain with nausea and copious food + bilious emesis reporting recent constipation and diffuse abdominal discomfort. In the ED initial vitals were BP 211/96 (reporting history of inability to tolerate PO so could not take her home meds), HR 93, on 3L NC saturating 98% and afebrile. She was initially noted as having described chest pain but on evaluation reported abdominal pain with discomfort and incredible nausea and shortly after arrival to the ED had copious food and bilious emesis precipitating the placed of an NGT for decompression. Workup in the ED was notable for WBC 13.1 ,Hgb 13.5, Hct 44.6, platelets 255, na 143, K 5.1, Cr 6.13, troponin wnl, EKG without acute ST changes, LFT wnl, CXR with moderate L pleural effusion with bibasilar opacities, while CT A/P showed some likely focal pneumonitis in the LLL base, dependent gallstones without cholecystitis, and ileus with high stool burden and dilated small bowel loops with c/f SBO. Dr. Hoff was consulted by the ED and recommended admission to medicine with bowel rest. Home Medications Scheduled Calcitriol (Calcitriol) 0.25 Mcg Capsule, 0.25 MCG PO 3XW, (Reported) SUN/SUN/SUN Calcitriol (Calcitriol) 0.25 Mcg Capsule, 0.5 MCG PO 4XWK, (Reported) SUN//SUN/SUN Ergocalciferol (Vitamin D2) (Vitamin D2) 50,000 Units Cap, 50,000 UNITS PO 1XWK, (Reported) SUNDAYS Ferric Citrate (Auryxia) 210 Mg Tab, 420 MG PO WM, (Reported) Folic Acid/Vit B Complex and C (April-Antonina Tablet) 1 Tab Tab, 1 TAB PO DAILY, (Reported) Gentamicin Sulfate (Gentamicin Sulfate) 15 Gm Oint...g., 1 APLCT TOP QHS, (Reported) APPLY WITH EACH DRESSING CHANGE TO PERITONEAL DIALYSIS SITE Insulin Glargine,Hum.rec.anlog (Basaglar Kwikpen U-100) 100 Unit/1 Ml Insuln.pen, 10 UNIT SC BID, (Reported) Isosorbide Mononitrate (Isosorbide Mononitrate ER) 30 Mg Tab, 30 MG PO DAILY, (Reported) Levothyroxine Sodium (Levothyroxine Sodium) 100 Mcg Tablet, 100 MCG PO DAILY, (Reported) Lisinopril (Lisinopril) 10 Mg Tablet, 20 MG PO DAILY, (Reported) Metoprolol Tartrate (Metoprolol Tartrate) 25 Mg Tablet, 25 MG PO BID, (Reported) Omeprazole (Omeprazole) 40 Mg Capsule.dr, 40 MG PO BID, (Reported) Sevelamer Carbonate (Sevelamer Carbonate) 800 Mg Tablet, 2,400 MG PO WM, (Reported) Scheduled PRN Polyethylene Glycol 3350 (Miralax) 119 Gm Powder, 17 GM PO DAILY PRN for CONSTIPATION, (Reported) HAS NOT PICKED UP YET Allergies Coded Allergies: Penicillins (Verified Allergy, Unknown, UNKNOWN CHILDHOOD REACTION, 09/11/18) PER [facility] RECORDS PT HAS RECEIVED MEROPENEM AND CEFEPIME IN THE PAST Past Medical History Medical History ESRD on HD, history of SBP, diabetes mellitus type 2,hypertension, hyperlipi demia, heart failure with reduced ejection fraction, peripheral vascular disease, anemia in end-stage renal disease, hypothyroidism, diabetic neuropathy Surgical History Status post cardiac catheterization and stent placement, history of hysterectomy, status post chest tube placement because of pericardial effusion 2015, tubal ligation, history of AV fistula in the right arm in the past, and has functioning right thigh AV graft at this time. She has had kidney and liver biopsy. Family History both parents had diabetes Social History * Smoker: Denies Alcohol: heavy Drugs: denies Recent Travel/Sick Contacts: Denies: Recent travel, Recent sick contacts Psychosocial History: No pertinent psych hx A-FIB/CHADSVASC A-FIB History Current/History of A-Fib/PAF?: No Current PO Anticoag Therapy: No Age/Risk Factor Scoring CHADSVASC: CHADSVASC Response (Comments) Value Age Risk Factor Age < 65 years old 0 Hx of CHF Yes 1 Hx of HTN Yes 1 Hx of Stroke/TIA/or VTE No 0 Hx of Diabetes Yes 1 Hx of Vascular Disease Yes 1 Total 4 Treatment Treatment ordered: NONE Reason Anticoagulant not given: Not indicated/[id number] Review of Systems Constitutional: Denies: Chills, Fever, Night Sweats Eyes: Denies: Pain, Vision change ENT: Denies: Head Aches, Ear Pain, Dysphagia Skin: Denies: Rash, Lesions, Breakdown Pulmonary: Denies: Dyspnea, Cough Cardiovascular: Denies: Chest Pain, Palpitations, Orthopnea, Paroxysmal Noc. Dyspnea, Lt Headedness Gastrointestinal: Reports: Nausea, Vomiting, Abdominal Pain, Constipation; Denies: Diarrhea, Melena, Hematochezia Genitourinary: Denies: Dysuria, Frequency, Incontinence, Retention Hematologic: Denies: Bruising, Bleeding Excessively Endocrine: Denies: Polydipsia, Polyphagia, Polyuria, Heat Intolerance, Cold Intolerance, Other Endocrine Sx Musculoskeletal: Denies: Neck Pain, Back Pain, Joint Pain, Muscle Pain, Spasms Neurological: Denies: Weakness, Numbness, Change in speech, Confusion Psych: Reports: Mood Normal; Denies: Depression, Memory Issues Physical Examination General Exam: Positive: Alert, Cooperative, Mild Distress, Other (chronically ill appearing) Eye Exam: Positive: PERRLA, Conjunctiva & lids normal, EOMI; Negative: Sclera icteric ENT Exam: Positive: Atraumatic, Mucous membr. moist/pink, Pharynx Normal Neck Exam: Positive: Supple; Negative: JVD, thyromegaly Chest Exam: Positive: Clear to auscultation, Normal air movement Heart Exam: Positive: Rate Normal, Regular Rhythm, Normal S1, Normal S2; Negative: Murmurs, Rubs Telemetry: Positive: No significant arrhythmia Abdomen Exam: Positive: BS Hypoactive, Soft, Tenderness Extremity Exam: Positive: Normal pulses; Negative: Clubbing, Cyanosis, Edema Skin Exam: Positive: Nl turgor and temperature; Negative: Breakdown, Lesion Neuro Exam: Positive: Normal Gait, Normal Speech, Cranial Nerves 3-12 NL, Reflexes 2+ Psych Exam: Positive: Mental status NL, Mood NL, Oriented x 3 Vital Signs Vital Signs Date Time Temp Pulse Resp B/P (MAP) Pulse Ox O2 Delivery O2 Flow Rate FiO2 05/08/19 02:15 92 14 98 Room Air 05/08/19 02:00 98.2 178/85 (116) 05/08/19 01:00 3.0 Laboratory Data Labs 24H Laboratory Tests 2 05/07/19 19:46: Immature Granulocyte % (Auto) 0.6, Neutrophils (%) (Auto) 86.0H, Lymphocytes (%) (Auto) 5.0L, Monocytes (%) (Auto) 7.1H, Eosinophils (%) (Auto) 0.3, Basophils (%) (Auto) 1.0, Neutrophils # (Auto) 11.3H, Lymphocytes # (Auto) 0.7L, Monocytes # (Auto) 0.9H, Eosinophils # (Auto) 0.0, Basophils # (Auto) 0.1, Nucleated Red Blood Cells % (auto) 0.0, Anion Gap 6L, Glomerular Filtration Rate 7.8L, Lactic Acid Level 1.3, Calcium Level 9.7, Total Bilirubin 0.7, Direct Bilirubin 0.2, Aspartate Amino Transf (AST/SGOT) 26, Alanine Aminotransferase (ALT/SGPT) 16, Alkaline Phosphatase 137H, Total Creatine Kinase 60, Creatine Kinase MB 2.8, Creatine Kinase MB Relative Index 4.67H, Troponin I 0.03, Total Protein 7.5, Albumin 3.1L, Albumin/Globulin Ratio 0.70L, Lipase 389 05/08/19 02:06: Bedside Glucose (Misc Panel) 209H CBC/BMP Laboratory Tests 05/07/19 19:46 Assessment/Plan 49 yo woman with ESRD recently switched from PF to HD, history of SBP, diabetes mellitus type 2,hypertension, hyperlipidemia, heart failure with reduced ejection fraction, peripheral vascular disease, anemia in end-stage renal disease, hypothyroidism, diabetic neuropathy who presented to the ED with abdominal pain with nausea and copious food + bilious emesis reporting recent constipation and diffuse abdominal discomfort and found to have distended small bowel loops and high colonic stool burden consistent with ileus +/- SBO with Dr. Hoff made aware by ED and recommended admission to medicine for bowel rest and monitoring. Abdominal pain secondary to ileus with c/f developing SBO -Abdominal CT showing ileus with high colonic stool burden and dilated small bowel loops--> surgery (Dr. Hoff) aware per ED, recommended bowel rest and observation -Surgery consult order placed -No significant pain, was mostly N/V and abdominal discomfort, had NGT placed with improvement in symptoms -NPO at this time -Did not start her on fluids overnight -Will likely require serial KUBs ESRD: -Volume will be managed by dialysis -Nephrology consult order placed overnight, to call Dr. Acevedo in the morning HFrEF: no overt evidence of acute decompensation though she continues to have pleural effusions -Holding ACEi and BB in the setting of PO intolerance with copious emesis now with NGT. Imagine that this will be short lived and she will resume her home ca rdioprotective medication HTN: -holding ACEi and BB as stated above. For now giving 10Q6H IV labetalol. Diabetes mellitus -reduced her 10 BID long active to 5 BID levemir while NPO -Q6H FSBG -hypoglycemia protocol -q6H SSI -NPO with NGT for copious emesis 2/2 ileus on bowel rest Hypothyroidism -Switched her PO synthroid to IV for now Anemia secondary to end-stage renal diseases -management per nephrology Secondary hyperparathyroidism. -can restart calcitriol once tolerating PO DVT ppx: heparin Dispo PCU Plan / VTE VTE Prophylaxis Ordered?: Yes LILLY SCHROEDER MD May 08, 2019 04:12
[2019-05-08] MEDS: LABETALOL HCL 100 MG/20 ML VIAL IV SCH ×2 (05:16→12:41)
[2019-05-08] MEDS: HEPARIN SOD (PORCINE) 5000 UNITS/ML VIAL SC SCH ×3 (05:22→22:46)
[2019-05-08] MEDS: HumaLOG INSULIN (NovoLOG) PER UNIT SC SCH ×4 (05:23→17:15)
[2019-05-08] MEDS ORDERED: LEVOTHYROXINE 100 MCG (0.1MG) VIAL IV SCH (09:00)
[2019-05-08] MEDS: LEVEMIR (INSULIN DETEMIR) 1 UNITS/0.01ML SC SCH ×2 (09:07→20:17)
[2019-05-08 10:02] LABS: HEMATOCRIT 39.7 % (36.0-47.0); HEMOGLOBIN 12.2 g/dl (12.0-15.5); MEAN CORPUSCULAR HEMOGLOBIN 30.7 pg (27.0-33.0); MEAN CORPUSCULAR HGB CONC 30.7 g/dl (32.0-36.5); MEAN CORPUSCULAR VOLUME 99.7 fl (80.0-96.0); PLATELET COUNT, AUTOMATED 246 10^3/uL (150-450); RED BLOOD COUNT 3.98 10^6/uL (4.00-5.40); WHITE BLOOD COUNT 12.5 10^3/uL (4.0-10.0)
[2019-05-08 10:33] LABS: CALCIUM LEVEL 9.3 MG/DL (8.5-10.1); CREATININE FOR GFR 6.9 MG/DL (0.55-1.30); GLOMERULAR FILTRATION RATE 6.8 (>58); POTASSIUM SERUM 4.9 MEQ/L (3.5-5.1); THYROID STIMULATING HORMONE 7.04 uIU/ML (0.358-3.740)
[2019-05-08] MEDS: DOCUSATE SODIUM 100 MG CAP PO SCH ×2 (12:42→20:17)
[2019-05-08] MEDS: MIRALAX *UNIT DOSE* 17GM PACKET PO SCH (12:43)
[2019-05-08] MEDS ORDERED: D5W/0.45% SODIUM CHLORIDE 1,000 ML IV SCH (13:00)
--- NOTE | 2019-05-08 13:54 | IPNPDOC ---
Text Note Date of Service The patient was seen on 05/08/19. NOTE SUBJECTIVE: Patient was examined at bed. She complained of very minimal abdo sydney pain. She had an NG tube in place, with was later removed. Denies chest pain, denies nausea, denied vomiting, denies changes in vision. Denies any recent illness. Denies shortness of breath, or difficulty breathing. OBJECTIVE: PHYSICAL EXAMINATION: GENERAL APPEARANCE: Alert, pleasant female SKIN: Warm, well perfused. ENT NG tube in place LUNGS: Clear to auscultation bilaterally. HEART: Normal S1, S2. No murmurs, no rubs, no gallops ABDOMEN: Soft. No masses. Bowel sounds are present., No tenderness, no organomegaly, no bruising, no hciks, bowel sounds in all 4 quadrants LABORATORY DATA: Please see below. ASSEMENT AND PLAN: 49 yo woman with ESRD recently switched from PF to HD, history of SBP, diabetes mellitus type 2,hypertension, hyperlipidemia, heart failure with reduced ejection fraction, peripheral vascular disease, anemia in end-stage renal disease, hypothyroidism, diabetic neuropathy who presented to the ED with abdominal pain with nausea and copious food + bilious emesis reporting recent constipation and diffuse abdominal discomfort and found to have distended small bowel loops and high colonic stool burden consistent with ileus +/- SBO with Dr. Hoff made aware by ED and recommended admission to medicine for bowel rest and monitoring. Abdominal pain secondary to ileus with c/f developing SBO -Abdominal CT showing ileus with high colonic stool burden and dilated small bowel loops -Patient had a bowel moment in the ED, reported to 20 pounds -NG tube was placed overnight and removed this AM -She had minimal tenderness on abdominal exam -Started on clear liquid diet this AM -From a surgical stand point. She is stable and does not need surgical intervention ESRD: -Volume will be managed by dialysis -Nephrology consult order placed overnight, to call Dr. Acevedo in the morning HFrEF: no overt evidence of acute decompensation though she continues to have pleural effusions -Restart home beta brien, and lisinopril HTN: -Resume home meds Diabetes mellitus -reduced her 10 BID long active to 5 BID levemir while NPO -Q6H FSBG -hypoglycemia protocol -q6H SSI -Clear liquid diet Hypothyroidism -Resume home PO meds Anemia secondary to end-stage renal diseases -management per nephrology Secondary hyperparathyroidism. -Restart Home meds DVT ppx: heparin DISPO: When able to tolerate an advance diet VS,Fishbone, I+O VS, Fishbone, I+O Laboratory Tests 05/07/19 19:46 05/08/19 09:48 Vital Signs Date Time Temp Pulse Resp B/P (MAP) Pulse Ox O2 Delivery O2 Flow Rate FiO2 05/08/19 12:41 84 169/81 05/08/19 11:17 97.2 18 98 Room Air 05/08/19 01:00 3.0 I&O- Last 24 Hours up to 6 AM 05/08/19 06:00 Output Total 700 ml Balance -700 ml CHRIS VELOZ DO May 08, 2019 13:54
[2019-05-08] MEDS: ISOSORBIDE MON. (IMDUR) 30 MG XR TAB PO SCH (14:10)
[2019-05-08] MEDS: lisinopriL 20 MG TAB PO SCH (14:11)
[2019-05-08] MEDS: METOPROLOL TART 25 MG TABLET PO SCH ×2 (14:12→20:17)
[2019-05-08] MEDS ORDERED: (RENVELA) SEVELAMER **CARBONate** 800 MG TAB PO SCH (18:00)
[2019-05-08] MEDS ORDERED: HumaLOG INSULIN (NovoLOG) PER UNIT SC SCH (21:00)
--- NOTE | 2019-05-08 23:53 | CR ---
DATE OF CONSULTATION: 05/08/2019 REQUESTING PHYSICIAN: Dr. Ivonne Schilling CONSULTING PHYSICIAN: Dr. Mcdaniel REASON FOR CONSULTATION: Management of end-stage renal disease and hemodialysis. CHIEF COMPLAINT: The patient presented to the hospital with nausea, vomiting and constipation. HISTORY OF PRESENT ILLNESS: Subha Trivedi is a 49-year-old female with past medical history of end-stage renal disease, recently switched from peritoneal dialysis to hemodialysis during a recent hospitalization after noncompliance with peritoneal dialysis at home. After discharge, she got a few days of hemodialysis as an outpatient, but she presented back to the emergency room yesterday because of copious nonbloody vomiting episodes. The patient also reported that she was constipated and she was unable to pass stools. She also reports episodes of constipation alternating with diarrhea for the last few weeks. She was unable to keep any fluids down. Further evaluation in the emergency room, including a CT scan, showed that the patient's colon was full of stools, and she had a small bowel obstruction. She got the nasogastric tube placed overnight, which was attached to suctioning. However, later on it was reported that the patient had a very large bowel movement in the emergency room. The patient was admitted under the hospitalist service with ileus and small bowel obstruction. Nephrology service was called for further help in the management of this patient with end-stage renal disease and hemodialysis. I saw and evaluated the patient today morning at the bedside. The patient reported that she was very uncomfortable with the nasogastric (NG) tube. She wanted the NG tube out. Her regular dialysis day is Sunday, , Sunday. Today is supposed to be her regular day. PAST MEDICAL HISTORY: Past medical history of end-stage renal disease, noncompliance with peritoneal dialysis. Recently switched to hemodialysis every Sunday, , Sunday schedule. History of secondary hyperparathyroidism, hypertension, diabetes mellitus type 2, hyperlipidemia, congestive heart failure with reduced ejection fraction, peripheral vascular disease, hypothyroidism and peripheral neuropathy. PAST SURGICAL HISTORY: Status post cardiac catheterization (cath) and stent placement, history of hysterectomy in the past history, history of chest tube placement in the past in 2016 secondary to pericardial effusion, tubal ligation, status post right thigh arteriovenous (AV) graft placement and recent removal of peritoneal dialysis catheter. ALLERGIES: She is allergic to PENICILLINS. FAMILY HISTORY: Both parents have diabetes. SOCIAL HISTORY: The patient denies any smoking or illicit drug abuse. She has a history of heavy alcohol drinking. REVIEW OF SYSTEMS: Constitutional: Patient reports feeling weak. Eyes: She denies any blurry vision, double vision. Ears, Nose, and Throat (ENT): She reports feeling very uncomfortable with the NG tube. Cardiovascular: She denies any chest pain or palpitations. Respiratory: She denies any shortness of breath. Gastrointestinal (GI): She reports constipation and nausea, vomiting. Genitourinary: She reports decreased urine output. Musculoskeletal: She denies any muscle aches and pains. Skin: She denies any rashes or ulcers. SENIOR ASIC DESIGN ENGINEER: She denies any weakness or seizures. Hematology/Oncology: She denies any easy bleeding or bruising. All other review of systems is negative. PHYSICAL EXAMINATION: General: The patient is awake, alert, oriented times three. Vital signs: Temperature is 97.4 degrees Fahrenheit, blood pressure 156/111, pulse is 80, respiratory rate of 18, saturating 96% on room air. Head and neck exam: Extraocular muscles intact. Pupils equally round and reactive to light. She has an NG tube in place. Mucous membranes are moist. Neck is supple. There is no jugular venous distention (JVD). Cardiovascular: S1, S2, regular rate. Trace edema of the bilateral lower extremities. Respiratory: Chest is clear to auscultation bilaterally. Bilateral equal air entry. No rales or rhonchi. Abdomen: Soft, positive bowel sounds. She has a healing surgical scar in the suprapubic region. No tenderness in the right lower and left lower quadrant. Sluggish bowel sounds are audible. Genitourinary: Bladder is not palpable. Musculoskeletal: No clubbing or cyanosis. She has a right thigh AV graft with thrill and bruit. SENIOR ASIC DESIGN ENGINEER: No focal deficit, power is 5/5 in all extremities. LAB REVIEW: CBC showed a WBC of 12.5, hemoglobin 12.2, platelets are 246. BMP showed sodium 142, potassium 4.9, chloride 99, bicarbonate 39, BUN 38, creatinine 6.9, calcium is 9.3, TSH is 7. IMAGING: A CT scan of the abdomen and pelvis was done yesterday, which showed pneumonitis in the left lung, bilateral adrenal hyperplasia, increased feces throughout the colon consistent with constipation, thickening of the wall of rectum, dilated small bowel loops in the upper abdomen related to colonic obstruction. CURRENT INPATIENT MEDICATIONS: The patient's medications were all reviewed by myself. I ordered D5 half-normal saline at 60 mL an hour for a total of 1 liter. She is on Tylenol as needed, calcitriol 0.5 mcg by mouth on Sunday, , Sunday and 0.25 mcg on nondialysis days. She is on Colace 100 mg twice a day, heparin subcu, insulin Levemir 5 units subcu twice a day, insulin sliding scale, isosorbide 30 mg by mouth daily, labetalol 10 mg IV because she was nothing by mouth. She was also given levothyroxine 75 mcg IV, and for tomorrow morning, she has been started on 100 mcg by mouth daily. She is on lisinopril 20 mg by mouth daily, metoprolol 25 mg by mouth twice a day, Renvela 2.4 grams with meals. ASSESSMENT: A 49-year-old female with a history of end-stage renal disease, on hemodialysis every Sunday, , Sunday, history of hypertension, heart failure with reduced ejection fraction, admitted at this time with ileus secondary to constipation. PLAN: 1. Ileus secondary to constipation. The patient had a large bowel movement yesterday in the emergency room. I have also ordered a soapsuds enema to be given to the patient. NG tube can be removed. The patient should be started on a clear liquid diet. Because of the constipation, I am stopping the Renvela at this time, which can sometimes cause constipation. 2. End-stage renal disease, on hemodialysis. The patient's regular dialysis days are Sunday, , Sunday; today was supposed to be a regular dialysis day, but because of the ileus and decreased oral intake and actually hydration, I am holding the dialysis today and I will dialyze her tomorrow. I am actually going to give her 1 liter of D5 half-normal saline. 3. History of heart failure with reduced ejection fraction. Volume status is optimal. She actually is clinically dry because of nasogastric tube suctioning and vomiting. Continue current dose of metoprolol, lisinopril and isosorbide. 4. Secondary hyperparathyroidism. Continue current dose of calcitriol. 5. Diabetes mellitus type 2, insulin dependent. Continue current dose of Levemir insulin sliding scale. 6. Hypothyroidism. he patient is currently on levothyroxine 100 mcg by mouth daily. Thank you for involving me in the care of this patient. I shall be happy to follow the patient along with you tomorrow morning. LESVIA
[2019-05-09] MEDS: HEPARIN SOD (PORCINE) 5000 UNITS/ML VIAL SC SCH ×2 (05:40→13:48)
[2019-05-09 06:00] VITALS: BP 149/76
[2019-05-09] MEDS ORDERED: LEVOTHYROXINE 100MCG TABLET (0.1MG) PO SCH (06:00)
[2019-05-09 06:05] LABS: HEMATOCRIT 36.4 % (36.0-47.0); HEMOGLOBIN 10.6 g/dl (12.0-15.5); MEAN CORPUSCULAR HEMOGLOBIN 29.4 pg (27.0-33.0); MEAN CORPUSCULAR HGB CONC 29.1 g/dl (32.0-36.5); MEAN CORPUSCULAR VOLUME 101.1 fl (80.0-96.0); PLATELET COUNT, AUTOMATED 224 10^3/uL (150-450); WHITE BLOOD COUNT 9.1 10^3/uL (4.0-10.0)
[2019-05-09 06:40] LABS: ALBUMIN 2.4 GM/DL (3.2-5.2); CALCIUM LEVEL 8.4 MG/DL (8.5-10.1); CREATININE FOR GFR 7.81 MG/DL (0.55-1.30); GLOMERULAR FILTRATION RATE 5.9 (>58); MAGNESIUM LEVEL 2.4 MG/DL (1.8-2.4); POTASSIUM SERUM 5.3 MEQ/L (3.5-5.1); TOTAL PROTEIN 5.8 GM/DL (6.4-8.2)
[2019-05-09] MEDS: HumaLOG INSULIN (NovoLOG) PER UNIT SC SCH ×2 (07:30→13:17)
[2019-05-09] MEDS ORDERED: CALCITRIOL 0.25 MCG CAP (S0169) PO SCH (09:00)
[2019-05-09] MEDS: LEVEMIR (INSULIN DETEMIR) 1 UNITS/0.01ML SC SCH (11:15)
--- NOTE | 2019-05-09 11:34 | IPN ---
DATE: 05/09/2019 HISTORY: The patient was admitted in the box feeder of the by the hospitalist for nausea and vomiting from constipation. She had several large bowel movements in the emergency department and by yesterday morning when I saw her she was comfortable with a soft nontender abdomen. Vital Signs: She has been afebrile over the last 24 hours with a pulse generally in the 70s to low 80s and a good blood pressure. Intake and output shows that yesterday she had 1400 in with 1200 out of her nasogastric (NG) tube. She had several additional bowel movements yesterday afternoon. PHYSICAL EXAMINATION: The patient is currently on dialysis. She reports no pain and reports that she is passing flatus. She has no nausea. IMPRESSION: Resolved nausea and vomiting secondary to constipation. PLAN: I am going to sign off at this point as there is no need for continuing surgical followup. I would recommend that she remain on some regimen of bowel care to try to prevent future serious constipation episodes. LESVIA
[2019-05-09] MEDS ORDERED: HEPARIN 1,000 UNITS/ML 10ML VIAL (FOR RADIOLOGY& DIALYSIS ONLY) IV ONE (12:30)
[2019-05-09] MEDS: DOCUSATE SODIUM 100 MG CAP PO SCH (13:46)
[2019-05-09] MEDS: MIRALAX *UNIT DOSE* 17GM PACKET PO SCH (13:48)
[2019-05-09 13:49] VITALS: BP 179/82
[2019-05-09] MEDS: lisinopriL 20 MG TAB PO SCH (13:49)
[2019-05-09] MEDS: ISOSORBIDE MON. (IMDUR) 30 MG XR TAB PO SCH (13:50)
[2019-05-09] MEDS: METOPROLOL TART 25 MG TABLET PO SCH (13:50)
[2019-05-09 14:00] VITALS: BP 154/73
--- NOTE | 2019-05-09 14:24 | DS.PDOC ---
Discharge Summary General Date of Admission May 08, 2019 at 00:00 Date of Discharge 05/09/19 Primary Care Physician: A Attending Physician: BRITTNEY ALCARAZ MD Specialist/Consultants Involve: HOLLY ALFARO MD Specialist/Consultants Involve Dr. Hoff Discharge Summary PROCEDURES PERFORMED DURING STAY: Hemodialysis, NG tube placement and Removal ADMITTING DIAGNOSES: 1.Constipation, abdominal pain DISCHARGE DIAGNOSES: 1. Small bowel obstruction COMPLICATIONS/CHIEF COMPLAINT: Colonic Obstruction,Ileus,Pneumoitis. HISTORY OF PRESENT ILLNESS: Patient is a 49 year old female ESRD recently switched from PF to HD, history of SBP, diabetes mellitus type 2,hypertension, hyperlipidemia, heart failure with reduced ejection fraction, peripheral vascular disease, anemia in end-stage renal disease, hypothyroidism, diabetic neuropathy. Who presented to the ED with abdominal pain with nausea and copious food and bilious emesis reporting recent constipation and diffuse abdominal discomfort. HOSPITAL COURSE: She was admitted for nausea and vomiting from constipation and had an NG tube place. Bowel rest was recommended. She had several large bowel movements in the emergency department, and by day 2 of hospital stay she was very comfortable without abdominal pain. Her NG tube was removed by surgury, and started on full liquid diet. On day of discharge patient was able tolerate for renal diet without any difficulties. She was discharged with bowel care regimen to prevent constipation and bowel obstruction. DISCHARGE MEDICATIONS: Please see below. ALLERGIES: Please see below. PHYSICAL EXAMINATION ON DISCHARGE: VITAL SIGNS: Please see below VITALS: See Below GENERAL APPEARANCE: Alert no acute distress. SKIN: Warm, well perfused. LUNGS: Clear to auscultation bilaterally. HEART: Normal S1, S2. No murmurs, no rubs, no gallops ABDOMEN: Soft. No masses. Bowel sounds are present. TRUNK/SPINE:Straight. EXTREMITIES: Moves all extremities equally. No gross deformities. PULSES: 2+ upper and lower extremity . LABORATORY DATA: Please see below. IMAGING: Chest Xray Impression: 1. Moderate left pleural effusion with bibasilar opacities/atelectasis minimally increased. 2. Nasogastric tube in satisfactory position. Abd/pelvis CT IMPRESSION: 1. Possible focus of pneumonitis at the left lung base which should be correlated clinically. 2. There are gallstones present. No evidence of cholecystitis demonstrated. 3. There is bilateral adrenal hyperplasia. 4. There is increased feces throughout the colon consistent with constipation. 5. There is apparent thickening of the wall of the rectum although not well evaluated on this scan lacking oral and intravenous contrast media. Correlation with digital exam and colonoscopy may be necessary. 6. Dilated small bowel loops in the upper abdomen may be related to colonic obstruction in association with an incompetent ileocecal valve, however other considerations of an ileus, regional enteritis or small bowel obstruction to be evaluated clinically. PROGNOSIS: Fair ACTIVITY: As tolerated DIET: Renal Diet DISCHARGE PLAN: To home DISPOSITION: . DISCHARGE INSTRUCTIONS: 1. Follow bowel care regiment ITEMS TO FOLLOWUP ON ON OUTPATIENT: 1. With nephrology for hemodialysis 2. Bowel care and constipation management DISCHARGE CONDITION: Stable TIME SPENT ON DISCHARGE: Greater than minutes. Vital Signs/I&Os Vital Signs Date Time Temp Pulse Resp B/P (MAP) Pulse Ox O2 Delivery O2 Flow Rate FiO2 05/09/19 13:49 179/82 05/09/19 06:00 97.7 73 17 95 05/08/19 22:00 Room Air 05/08/19 01:00 3.0 I&O- Last 24 Hours up to 6 AM 05/09/19 06:00 Intake Total 1590 ml Output Total 500 ml Balance 1090 ml Laboratory Data Labs 24H Laboratory Tests 2 05/08/19 17:02: Bedside Glucose (Misc Panel) 63L 05/08/19 19:51: Bedside Glucose (Misc Panel) 169H 05/09/19 05:33: Nucleated Red Blood Cells % (auto) 0.0, Anion Gap 6L, Glomerular Filtration Rate 5.9L, Lactic Acid Level 1.1, Calcium Level 8.4L, Magnesium Level 2.4, Total Bi lirubin 1.0, Aspartate Amino Transf (AST/SGOT) 12, Alanine Aminotransferase (ALT/SGPT) 9L, Alkaline Phosphatase 100, Total Protein 5.8#L, Albumin 2.4#L, Albumin/Globulin Ratio 0.71L 05/09/19 13:15: Bedside Glucose (Misc Panel) 83 CBC/BMP Laboratory Tests 05/09/19 05:33 FSBS Laboratory Tests Test 05/08/19 17:02 05/08/19 19:51 05/09/19 13:15 Range/Units Bedside Glucose (Misc Panel) 63 169 83 70-105 MG/DL Discharge Medications Scheduled Calcitriol (Calcitriol) 0.25 Mcg Capsule, 0.25 MCG PO 3XW, (Reported) SUN/SUN/SUN Calcitriol (Calcitriol) 0.25 Mcg Capsule, 0.5 MCG PO 4XWK, (Reported) SUN//SUN/SUN Ergocalciferol (Vitamin D2) (Vitamin D2) 50,000 Units Cap, 50,000 UNITS PO 1XWK, (Reported) SUNDAYS Ferric Citrate (Auryxia) 210 Mg Tab, 420 MG PO WM, (Reported) Folic Acid/Vit B Complex and C (April-Antonina Tablet) 1 Tab Tab, 1 TAB PO DAILY, (Reported) Gentamicin Sulfate (Gentamicin Sulfate) 15 Gm Oint...g., 1 APLCT TOP QHS, (Reported) APPLY WITH EACH DRESSING CHANGE TO PERITONEAL DIALYSIS SITE Insulin Glargine,Hum.rec.anlog (Basaglar Kwikpen U-100) 100 Unit/1 Ml Insuln.pen, 10 UNIT SC BID, (Reported) Isosorbide Mononitrate (Isosorbide Mononitrate ER) 30 Mg Tab, 30 MG PO DAILY, (Reported) Levothyroxine Sodium (Levothyroxine Sodium) 100 Mcg Tablet, 100 MCG PO DAILY, (Reported) Lisinopril (Lisinopril) 10 Mg Tablet, 20 MG PO DAILY, (Reported) Metoprolol Tartrate (Metoprolol Tartrate) 25 Mg Tablet, 25 MG PO BID, (Reported) Omeprazole (Omeprazole) 40 Mg Capsule.dr, 40 MG PO BID, (Reported) Sevelamer Carbonate (Sevelamer Carbonate) 800 Mg Tablet, 2,400 MG PO WM, (Reported) Scheduled PRN Polyethylene Glycol 3350 (Miralax) 119 Gm Powder, 17 GM PO DAILY PRN for CONSTIPATION, (Reported) HAS NOT PICKED UP YET Allergies Coded Allergies: Penicillins (Verified Allergy, Unknown, UNKNOWN CHILDHOOD REACTION, 09/11/18) PER [facility] RECORDS PT HAS RECEIVED MEROPENEM AND CEFEPIME IN THE PAST CHRIS VELOZ DO May 09, 2019 14:24
[2019-05-09] MEDS ORDERED: DOCU8.6T PO (14:25)
--- NOTE | 2019-05-09 14:50 | CR ---
DATE OF CONSULTATION: 05/08/2019 REASON FOR CONSULTATION: Abdominal pain with nausea and vomiting. HISTORY: The patient presented to the emergency room on the with nausea and vomiting and abdominal pain. She had labs obtained that were consistent with her known history of chronic renal failure on dialysis. A CT scan was done, which was interpreted as showing a large amount of stool throughout the colon with some possible thickening in the wall of the rectum and some mildly dilated small-bowel loops in the upper abdomen. I had a brief conversation with Dr. Raza of the emergency department at the time of before her admission and suggested to him that she had a history of significant constipation and that she had only recently been discharged from the hospital and I thought it was very unlikely that this represented an actual anatomic small bowel obstruction. She was admitted by the hospitalist for management. They placed a nasogastric tube. The patient reports this morning that she had several large bowel movements. She described it as 20 pounds in the emergency department around the time of admission and her pain resolved and she is having no pain currently other than the NG tube. ALLERGIES/MEDICATIONS/PAST HISTORY (MEDICAL AND SURGICAL)/REVIEW OF SYSTEMS: As noted by the hospitalist and in her medical record. PHYSICAL EXAMINATION: Shows a pleasant woman lying quietly in the hospital bed with her nasogastric tube in place. There is a small amount of watery fluid in the tube and in the container. Heart exam shows a regular rhythm. The abdomen is flat and soft without any significant tenderness. Laboratory studies showed no significant change in her electrolytes from the time of admission and her white blood cell count is still in the 12 to 13 range. IMPRESSION: Severe constipation with secondary nausea and vomiting, now resolved. RECOMMENDATIONS: I have removed her nasogastric tube personally and will start her on some clear liquids. I would recommend continuing some regimen of bowel care to try to prevent recurrence of her severe symptoms.
--- NOTE | 2019-05-09 19:59 | IPN ---
DATE: 05/09/2019 SUBJECTIVE: The patient was seen and examined at the bedside today morning at hemodialysis. She is tolerating the hemodialysis procedure well. She reports that she had tolerated her dinner last night. Nasogastric (NG) tube was removed yesterday. She is having regular bowel movements now. She denies any active complaints. OBJECTIVE: Vital signs: Temperature is 98.9 degrees Fahrenheit, blood pressure 154/73, pulse is 79, respiratory of 12, saturating 93% on room air. Intake and output: Urine output: There is no urine output recorded. Gastric drainage was 1.2 liters yesterday. Weight in the bed scale was 59.8 kg. PHYSICAL EXAMINATION: GENERAL: The patient is awake, alert, oriented times three, lying in bed getting hemodialysis done. No apparent distress. HEAD AND NECK: Extraocular muscles intact. Pupils equally round and reactive to light. Mucous membranes are moist. Neck is supple. There is no jugular venous distention (JVD). CARDIOVASCULAR: S1, S2, regular rate. No edema of the bilateral lower extremities. RESPIRATORY: Chest is clear to auscultation bilaterally. Bilateral equal air entry. No rales or rhonchi. ABDOMEN: Soft. Positive bowel sounds. Nontender. No organomegaly. MUSCULOSKELETAL: No clubbing or cyanosis. She has a right thigh arteriovenous (AV) graft which is being used for dialysis. CENTRAL NERVOUS SYSTEM: No focal deficit. Power is 5/5 in all extremities. LABORATORY REVIEW: CBC showed WBC 9.1, hemoglobin 10.6, platelets are 124. BMP showed sodium 135, potassium 5.3, chloride 90, bicarbonate 39, BUN 41, creatinine is 7.8. Albumin is 2.4. Procalcitonin is 0.5. CURRENT INPATIENT MEDICATIONS: The patient's medications were all reviewed by myself. There is no change in the medications today as compared with yesterday. ASSESSMENT AND PLAN: 1. End-stage renal disease. The patient's regular dialysis days are Sunday, , Sunday; however, she missed dialysis yesterday, so she is being dialyzed today. Ultrafiltration goal will be maximum up to 1.5 liters as tolerated by her blood pressure. 2. Constipation and small-bowel ileus. Patient had removal of the NG tube yesterday. She is tolerating the liquid diet now. She is having regular bowel movements now. 3. Heart failure with reduced ejection fraction. Volume status is optimal. As mentioned above, 1.5 liters of fluid will be removed. There is no evidence of edema at this time. 4. Anemia and end-stage renal disease. Hemoglobin level is within the optimal range. Rest of the anemia management will be done as outpatient. DISPOSITION: Patient is tolerating the diet now. She is optimized from nephrology standpoint to be discharged after dialysis. She can resume her outpatient dialysis according to Sunday, , Sunday schedule starting tomorrow morning.
[2019-05-10] MEDS ORDERED: CALCITRIOL 0.25 MCG CAP (S0169) PO SCH (09:00)
== END 2019-05-09 16:31 | disposition home or self-care (01) | DRG 254 ==
LOC: EDBD 19:26 → M ED 19:26 → M ED INP 05-08 → ENRESERVTM 05-08 00:33 → ENRESERVDT 05-08 00:33 → CANRESERV 05-08 00:33 → ENRESERVTM 05-08 00:52 → ENRESERVDT 05-08 00:52 → ENRESERVTM 05-08 02:21 → ENRESERVDT 05-08 02:21 → M PCU 05-08 03:07 → M MSPAV 05-08 21:05
PROVIDERS: ADMIT Internal Medicine; ATTEND Internal Medicine
DX: K59.00 Constipation, unspecified (principal); I13.2 Hypertensive heart and chronic kidney disease with heart failure and with stage 5 chronic kidney disease, or end stage renal disease; N18.6 End stage renal disease; E11.22 Type 2 diabetes mellitus with diabetic chronic kidney disease; K56.7 Ileus, unspecified; N25.81 Secondary hyperparathyroidism of renal origin; I50.32 Chronic diastolic (congestive) heart failure; E11.51 Type 2 diabetes mellitus with diabetic peripheral angiopathy without gangrene; E11.40 Type 2 diabetes mellitus with diabetic neuropathy, unspecified; D63.1 Anemia in chronic kidney disease; E78.5 Hyperlipidemia, unspecified; E03.9 Hypothyroidism, unspecified; Z79.4 Long term (current) use of insulin; Z79.899 Other long term (current) drug therapy; Z88.0 Allergy status to penicillin; Z99.2 Dependence on renal dialysis

== ENCOUNTER → 2019-12-12 | Outpatient (CLI) | payer OTHER ==
[~2019-12-12] MED LIST changes: +ASPI81CH33 PO; +ASPI81CH8 PO; +ATOR1TAB21 PO; +DOCU8.6T PO; +ECOT81TA5 PO; +ELIQ2.5T PO; +ELIQ5TAB PO; +GOLYLQ PO; +ISOVUE-300 61% 50ML VIAL As Ordered ONE; +LEVO125T4 PO; +LIDOCAINE 1% MDV 20ML VIAL As Ordered ONE; +METO50TA7 PO; +MIDAZOLAM INJ 2MG/2ML VIAL (J2250 PER 1MG) As Ordered ONE; +MIDO5TA PO; +MILKSUS3 PO; +MOM30SS2 PO; +PANT40TA29 PO; -PANT40TA3 PO; +PRED10PA PO; +PRED10TA2 PO; +PRED20TA PO; +fentaNYL 100 MCG/2 ML INJECTION (J3010) As Ordered ONE
--- NOTE | 2019-12-12 15:40 | ROOPDOC ---
[facility] Report Of Operation Report of Operation DATE OF PROCEDURE: 12/12/19 PREPROCEDURE DIAGNOSES: End-stage renal disease with increased venous pressures on dialysis will using right AV thigh graft POSTPROCEDURE DIAGNOSES: Same PROCEDURE: 1. Ultrasound-guided retrograde graft access to evaluate arterial inflow 2. Arteriogram after selection of right common femoral artery to evaluate graft inflow 3. Ultrasound-guided antegrade graft access to evaluate venous outflow 4. Right lower extremity venogram and vena cava gram 5. Angioplasty graft venous anastomosis and venous outflow with 9 x 40 [place] b alloon 6. Completion venogram SURGEON: Ann Wong MD ANESTHESIA: Local anesthesia 6 mL lidocaine. Moderate intravenous conscious sedation was administered by Dr. Wong. The patient was independent we monitored by registered nurse assigned to the Department of radiology using automated blood pressure, EKG, and pulse oximetry. The detailed sedation record is permanently stored in the hospital information system. The following is a brief sedation record: Start time 14:25, stop time 15:05, Versed 1 mg IV, fentanyl 50 g IV. CONTRAST: 28 mL Isovue-300 INDICATION FOR PROCEDURE: This is a very pleasant 49-year-old patient with a right femoral femoral AV loop graft on the right thigh. She has been having increased venous pressures at dialysis. Ears concern for outflow obstruction. Risks benefits alternatives to arterial and venous imaging and potential intervention were explained to the patient and she is agreeable to proceed. Informed consent was obtained. INTERPRETATION: 1. The common femoral artery is widely patent with good runoff into the profunda in the superficial femoral artery. The superficial femoral artery appears to be mildly aneurysmal at the AV anastomosis, which may be secondary to patch angioplasty done at the time of the anastomosis, although I do not have the operative note to confirm this. The AV anastomosis is widely patent with excellent inflow into the graft. The graft itself is widely patent throughout its loop in the thigh. The outflow through the venous anastomosis actually ap pears widely patent, but there is a small bottleneck just proximal to the graft venous anastomosis, likely due to some tension from the noncompliant graft on the vein itself rather than actual stenosis, but the outflow through the femoral veins, iliac veins, and IVC are all widely patent without obstruction. 2. In order to ensure there was no stenosis at the venous anastomosis, and 9 x 80 [place] balloon was inflated across the anastomosis and in the outflow vein just proximal to the anastomosis. After three-minute inflations, there is still widely patent inflow and no significant waist was noted on the balloon with angioplasty. No extravasation was noted. REPORT OF OPERATION: Patient was brought to the angiographic suite in stable condition. Her right groin and thigh were prepped and draped in a sterile fashion. A timeout was performed. Local anesthesia was administered to the skin and subcutaneous tissue over the lateral distal aspect of the graft. A microneedle was used to access the graft under ultrasound guidance in a retrograde fashion. A wire was passed through this access and a 4 [place] sheath was placed. The sheath was flushed with saline. A Glidewire was advanced into the femoral artery through the AV anastomosis and apply cath was advanced over the wire and used to perform an arteriogram. Please interpretation above. A [id number] Prolene suture was placed at the graft site and secured as the graft was removed. Sterile dressings were applied. Next, an antegrade access was performed in a similar fashion with 4 [place] sheath which was flushed with saline. A Glidewire was advanced through this access into the venous outflow. A venogram was performed. Please see interpretation above. We then exchanged sheath a 7 [place] sheath over the wire using a Seldinger technique, and flushed the sheath with saline. A 9 x 80 [place] balloon was it advanced across the outflow anastomosis and into the femoral vein near the graft venous anastomosis. Three-minute inflation was performed and following this there was no significant change in the outflow which was excellent to begin with. There was no stenosis noted. The patient has excellent flow through her graft. We then utilized ultrasound and a marking pen to jesenia the graft on the skin so the nurses may have a better idea the course of the graft to allow needle placement to be in the center of the graft. My suspicion is that the needles and up against the wall of the graft which affects outflow. A [id number] suture was placed around the 7 [place] sheath and it was removed. She suture was secured and sterile dressings were applied. The patient was then taken recovery in stable condition. She tolerated the sedation and the procedure well. ESTIMATED BLOOD LOSS: Approximately 2 mL. COMPLICATIONS: None. PLAN: Okay to use AV graft for dialysis. We did ask the patient to obtain a vein mapping to ensure there was no alternative option for upper extremity access if it ever becomes necessary to place a new axis. At this point however I feel her thigh graft is working very well and should be suitable for dialysis. We did jesenia the graft on the skin so the nurses may have a better idea the course of the graft to allow needle placement to be in the center of the graft. My suspicion is that the needles and up against the wall of the graft which affects outflow. We appreciate the opportunity to participate in the care of this patient. ANN WONG MD Dec 12, 2019 15:40
[2019-12-12 16:40] VITALS: BP 136/78
== END ==
LOC: M IRPRO 11:33
PROVIDERS: ATTEND Surgery Vascular Surgery
DX: T82.590A Other mechanical complication of surgically created arteriovenous fistula, initial encounter (principal); N18.6 End stage renal disease; F17.210 Nicotine dependence, cigarettes, uncomplicated; X58.XXXA Exposure to other specified factors, initial encounter; Z79.4 Long term (current) use of insulin; Z79.890 Hormone replacement therapy; Z79.899 Other long term (current) drug therapy; Z88.0 Allergy status to penicillin; Z99.2 Dependence on renal dialysis
CPT/HCPCS: 36902; 99152; 99153; C1725; C1769; C1887; C1894; J1644; J2250; J3010; Q9967

== ENCOUNTER 2019-12-14 00:53 | Inpatient (IN) | payer OTHER ==
[~2019-12-14] VITALS: Ht 160 cm; Wt 70.3 kg
[~2019-12-14 00:53] MED LIST changes: -ASPI81CH33 PO; -ASPI81CH8 PO; -ATOR1TAB21 PO; -ECOT81TA5 PO; -ELIQ2.5T PO; -ELIQ5TAB PO; -GOLYLQ PO; -ISOVUE-300 61% 50ML VIAL As Ordered ONE; -LEVO125T4 PO; -LIDOCAINE 1% MDV 20ML VIAL As Ordered ONE; -METO50TA7 PO; -MIDAZOLAM INJ 2MG/2ML VIAL (J2250 PER 1MG) As Ordered ONE; -MIDO5TA PO; -MILKSUS3 PO; -MOM30SS2 PO; -PRED10PA PO; -PRED10TA2 PO; -PRED20TA PO; -fentaNYL 100 MCG/2 ML INJECTION (J3010) As Ordered ONE
[2019-12-14 02:25] VITALS: BP 90/54
--- NOTE | 2019-12-14 02:58 | HPEPDOC ---
[facility] Medical History & Physical Date of Admission Dec 14, 2019 Date of Service: Dec 14, 2019 Attending Physician: YASMANY ZARAGOZA MD History and Physical TIME OF SERVICE: 330AM CHIEF COMPLAINT: low blood pressure HISTORY OF PRESENT ILLNESS: This 49 yr old F was transferred from [facility] for a higher level of care. During dialysis yesterday her blood pressure was low. At the time she had shortness of breath,& felt dizzy. She denies having f/c/ chest pain, funny nose, n/v/d. When she arrived in the ER her SBP was 77 she received 500ml of NS and her BP improved to 92/59. Her chest xray was unremarkable and her lactic acid was 2.7. Due to concerns that she may have an infection she was started on Vanc and Cefepime. Currently she is c/o of feeling anxious, like her skin is crawlin g, and that she has ringing in her ears. REVIEW OF SYSTEMS: 12 point review of systems negative except as listed in HPI PAST MEDICAL/ SURGICAL HISTORY: ESRD w anemia and secondary hyperparathyroidism (TTS via right thigh fistula) / LUE fistula no longer in use bc of vascular access steal syndrome PVD CAD s/p PCI w stent GERD DM w peripheral neuropathy Chronic Grade 1 Diastolic CHF (Echo EF 65% Apr 2019) Anemia of Chronic disease Hypothyroidism Legally blind Hysterectomy SOCIAL HISTORY: -tobacco / - alcohol / - drugs FAMILY HISTORY: Several family members have CKD ALLERGIES: Please see below. HOME MEDICATIONS: Please see below. PHYSICAL EXAMINATION: pending completion GENERAL APPEARANCE: anxious / well developed HEENT: MMM &P / EOMI CARDIOVASCULAR: RRR/NMRG LUNGS: CTAB on RA ABDOMEN: soft & NT MUSCULOSKELETAL: KEVIN x4 extremities / / has difficulties standing on toes NEUROLOGICAL: CN 2-12 intact / strength 5/5 PSYCHIATRIC: A&O x 3/ able to understand and follow commands LABORATORY DATA: from [facility] WBC 6.5, Hg 9.3, Plts 150, Na 135, K 3.2, Cl 93, HCO2 29, BUN 11, Cr 4.0, gluc 245. IMAGING: see HPI ASSESSMENT: is a 49 yr old w a hx of ESRD, PVD, DM w neuropathy, CAD and hypothyroidism who was sent to [facility] for evaluation of hypotension during dialysis; she was transferred here for a higher level of care. PLAN: 1. Hypotension of unclear cause Per d/w at [facility] the patients HR, RR, T and WBC count were wnl. Chest xray was unremarkable and UA was not collected because she is anuric Plan: admit to medical floor /telemetry / f/u blood cx, lactic acid & monitor vitals 2. Dizziness and Ringing in Ears Cause TBD Neuro exam unremarkable Plan: orthostats / day time team to consider imaging studies if the symptoms are still present in the morning 3. ESRD w anemia and secondary hyperparathyroidism Plan: Nephro consult 4. CAD s/p PCI w stent Plan: isosorbide, ASA, statin 5. DM w peripheral neuropathy Plan: FSBS, SSI, hypoglycemia protocol, A1C, levemir 5 units BID 6. PVD Plan: ASA & statin 7. Hypothyroidism Plan: Levothyroxine 8. Constipation Plan: stool softeners DVT px w Heparin Dispo: likely home after more than 2 midnights stay Home Medications Scheduled Aspirin (Children's Aspirin) 81 Mg Tab.chew, 81 MG PO DAILY Atorvastatin Calcium (Atorvastatin Calcium) 20 Mg Tablet, 20 MG PO QHS Insulin Glargine,Hum.rec.anlog (Basaglar Kwikpen U-100) 100 Unit/1 Ml Insuln.pen, 20 UNIT SC BID Levothyroxine Sodium (Levothyroxine Sodium) 125 Mcg Tablet, 125 MCG PO QAM Omeprazole (Omeprazole) 40 Mg Capsule.dr, 40 MG PO BID Scheduled PRN Magnesium Hydroxide (Milk of Magnesia) 400 Mg/5 Ml Oral.susp, 30 ML PO DAILY PRN for CONSTIPATION Polyethylene Glycol 3350 (Miralax) 119 Gm Powder, 17 GM PO BID PRN for CONSTIPATION Allergies Coded Allergies: Penicillins (Verified Allergy, Unknown, UNKNOWN CHILDHOOD REACTION, 09/11/18) PER [facility] RECORDS PT HAS RECEIVED MEROPENEM AND CEFEPIME IN THE PAST A-FIB/CHADSVASC A-FIB History Current/History of A-Fib/PAF?: No Current PO Anticoag Therapy: YASMANY Cochran MD Dec 14, 2019 02:58
[2019-12-14] MEDS ORDERED: DEXTROSE 50% 50 ML SYRINGE IV PRN (03:00)
[2019-12-14] MEDS ORDERED: MOM 30ML SUSPENSION UDC PO PRN (03:00)
[2019-12-14] MEDS ORDERED: GLUCAGON INJ 1MG VIAL SC PRN (03:00)
[2019-12-14] MEDS ORDERED: ACETAMINOPHEN TAB 650MG DOSE (2X325MG) PO PRN (03:00)
[2019-12-14] MEDS ORDERED: GLUCOSE 4GM CHEW TABLET PO PRN (03:00)
[2019-12-14] MEDS ORDERED: LEVO125T4 PO (04:56)
[2019-12-14] MEDS: HEPARIN SOD (PORCINE) 5000UNITS/ML 1ML VIAL/SYRINGE SC SCH ×3 (05:47→21:24)
[2019-12-14] MEDS: LEVOTHYROXINE 125MCG TABLET (0.125MG) PO SCH (05:47)
[2019-12-14 05:50] VITALS: BP_SYST 97; BP_SYST 98; BP_DIAS 57; BP_DIAS 58; BP_DIAS 59
[2019-12-14 06:00] VITALS: BP 100/60
[2019-12-14] MEDS ORDERED: (RENVELA) SEVELAMER **CARBONate** 800 MG TAB PO SCH (08:00)
[2019-12-14] MEDS ORDERED: ISOSORBIDE MON. (IMDUR) 30 MG XR TAB PO SCH (09:00)
[2019-12-14] MEDS ORDERED: MIRALAX *UNIT DOSE* 17GM PACKET PO SCH (09:00)
[2019-12-14] MEDS: HumaLOG INSULIN (NovoLOG) PER UNIT SC SCH ×3 (09:21→17:30)
[2019-12-14] MEDS: LEVEMIR (INSULIN DETEMIR) 1 UNITS/0.01ML SC SCH ×2 (09:22→21:24)
[2019-12-14] MEDS: ASPIRIN 81 MG CHEW TABLET PO SCH (09:24)
[2019-12-14] MEDS: OMEPRAZOLE 20 MG CAP PO SCH ×2 (09:33→21:23)
[2019-12-14 10:00] VITALS: BP 92/62
[2019-12-14 10:27] LABS: BASO # 0.1 10^3/uL (0.0-0.2); BASO % 0.9 % (0.0-1.0); EOS # 0.1 10^3/uL (0.0-0.5); EOS % 0.9 % (0.0-3.0); HEMATOCRIT 32.5 % (36.0-47.0); HEMOGLOBIN 9.5 g/dl (12.0-15.5); LYMPH # 0.7 10^3/uL (1.5-5.0); LYMPH % 12.3 % (24.0-44.0); MEAN CORPUSCULAR HEMOGLOBIN 29.7 pg (27.0-33.0); MEAN CORPUSCULAR HGB CONC 29.2 g/dl (32.0-36.5); MEAN CORPUSCULAR VOLUME 101.6 fl (80.0-96.0); MONO # 0.4 10^3/uL (0.0-0.8); MONO % 7.3 % (0.0-5.0); NEUTROPHILS # 4.6 10^3/uL (1.5-8.5); NEUTROPHILS % 78.1 % (36.0-66.0); PLATELET COUNT, AUTOMATED 109 10^3/uL (150-450); WHITE BLOOD COUNT 5.9 10^3/uL (4.0-10.0)
[2019-12-14 11:05] LABS: BILIRUBIN,TOTAL 1.2 MG/DL (0.2-1.0); C REACTIVE PROTEIN QUANTITATIV 1.34 MG/DL (0.00-0.30); CALCIUM LEVEL 8.9 MG/DL (8.5-10.1); CREATININE FOR GFR 4.44 MG/DL (0.55-1.30); GLOMERULAR FILTRATION RATE 11.3 (>58); MAGNESIUM LEVEL 2.2 MG/DL (1.8-2.4); POTASSIUM SERUM 4.1 MEQ/L (3.5-5.1); TOTAL PROTEIN 7.2 GM/DL (6.4-8.2)
[2019-12-14 11:39] LABS: CK-MB VALUE MASS 6.1 NG/ML (<3.6); TROPONIN I 0.05 NG/ML (< 0.10)
[2019-12-14 14:00] VITALS: BP 106/59
[2019-12-14] MEDS ORDERED: GOLYTELY SOLN 4000 ML BTL PO ONE (14:00)
--- NOTE | 2019-12-14 14:26 | IPNPDOC ---
Text Note Date of Service The patient was seen on 12/14/19. NOTE Subjective: Patient is a 49 year old female with a PMHx of ESRD on HD (TTS), PVD, CAD s/p stent, Grade 1 DD CHF, IDDM2, Hypothyroidism, [place] of Chronic disease, Neuropathy, GERD who was transferred from [facility] for a higher level of care. During dialysis yesterday her blood pressure was low. At the time she had shortness of breath and felt dizzy. On arrival to [place] ER, her SBP was in the 70s. Improved with fluid boluses. Patient was thought to have sepsis after her lactic acid was noted to be 2.7; she receive Vancomycin and Cefepime and was transferred to [facility]. Upon arrival to [facility], patient BP has remained in the low 100s / upper 90s. Lactic acid was normal. Nephrology was called on consultation. Patient was seen and examined at the bedside. Currently patient denies any nausea, vomiting, abdominal pain, or abdominal pain. She still reports light headedness and dizziness. Reports constipation on going for months. Reports last bowel movements were recently but very small. Objective: Vitals (See below) General: Lying in bed, appears comfortable, AAOx3 HEENT: NC, AT CVS: +S1S2 Lungs: Fair air entry b/l, -w/r/r Abdomen: Soft, ND, NT Extremities: No evidence of edema, - Calf tenderness Assessment and plan: s/p Hypotension - possibly 2/2 adjusted dry weight - May require less volume removal overall - Orthostatic vital signs negative - Lactic acid normal - s/p IV fluids - Nephrology on consultation; will evaluate for possible Midodrine if required Dizziness and Ringing in Ears - Orthostatic vital signs negative - Will correct hypotension ESRD on HD (TTS) - Nephrology on consultation CAD s/p PCI w stent - c/w ASA, statin - s/p Isosorbide mononitrate NIDM2 w peripheral neuropathy - c/w Levemir and ISS PVD - c/w ASA, Atorvastatin Hypothyroidism - c/w Levothyroxine Constipation - c/w stool softeners - Go-Lytely has been added GI prophylaxis - c/w Omeprazole DVT prophylaxis - c/w Heparin Disposition: - Anticipate DC home within 24 hours VS,Fishbone, I+O VS, Fishbone, I+O Laboratory Tests 8/30/20 10:16 Vital Signs Date Time Temp Pulse Resp B/P (MAP) Pulse Ox O2 Delivery O2 Flow Rate FiO2 12/14/19 10:00 97.1 74 20 92/62 (72) 100 Room Air I&O- Last 24 Hours up to 6 AM 12/14/19 06:00 Intake Total 0 ml Balance 0 ml SAURAV ALBARADO MD Dec 14, 2019 14:26
[2019-12-14] MEDS ORDERED: HumaLOG INSULIN (NovoLOG) PER UNIT SC SCH (21:00)
[2019-12-14] MEDS ORDERED: ATORVASTATIN 20 MG TAB PO SCH (21:00)
[2019-12-14 22:00] VITALS: BP 103/59
[2019-12-15] MEDS: LEVOTHYROXINE 125MCG TABLET (0.125MG) PO SCH (05:43)
[2019-12-15] MEDS: HEPARIN SOD (PORCINE) 5000UNITS/ML 1ML VIAL/SYRINGE SC SCH ×2 (05:47→14:00)
[2019-12-15 06:00] VITALS: BP 109/60
[2019-12-15] MEDS: ASPIRIN 81 MG CHEW TABLET PO SCH (08:30)
[2019-12-15] MEDS: OMEPRAZOLE 20 MG CAP PO SCH (08:30)
[2019-12-15] MEDS: LEVEMIR (INSULIN DETEMIR) 1 UNITS/0.01ML SC SCH (08:30)
[2019-12-15] MEDS: HumaLOG INSULIN (NovoLOG) PER UNIT SC SCH ×2 (08:31→12:00)
--- NOTE | 2019-12-15 09:56 | REPVR ---
PROCEDURE INFORMATION: Exam: MR Head Without Contrast Exam date and time: 12/15/2019 9:22 AM Age: 49 years old Clinical indication: Dizziness and other: Ringing in ears; Patient HX: PT C/O ringing in her ears and dizziness; Additional info: Ringing / dizziness TECHNIQUE: Imaging protocol: MR of the head without contrast. 3D rendering (Not supervised by radiologist): MIP and/or 3D reconstructed images were created by the technologist. COMPARISON: No relevant prior studies available. FINDINGS: Brain: There are numerous supratentorial microhemorrhages involving frontal, parietal, and occipital with multiple hemorrhages in splenium of corpus callosum and few hemorrhages in bilateral temporal lobes and cerebellum. These are most commonly a result chronic hypertension and correlate clinically. There are focal areas of abnormal signal consistent with chronic lacunar infarcts involving region bilateral basal ganglia and external capsules. There is mild T2 prolongation in cerebral white matter and everardo and given lacunar infarcts, these are suspected to relate to mild microvascular change. Diffusion images are normal. No evidence of acute infarction. No evidence of acute intracranial hemorrhage. No extra-axial fluid collections. Ventricles and cerebrospinal fluid spaces are normal in size and configuration for the patient's age. There is no evidence of mass-effect or midline shift. Flow voids of the [place] and major cerebral vascular structures appear intact. Craniocervical junction appears unremarkable, with normal position of cerebellar tonsils and no evidence of Chiari I malformation. Ventricles: No evidence of hydrocephalus Bones/joints: Thin-section axial T1 and T2 weighted images IAC protocol without contrast are provided. These are somewhat motion degraded particularly T1 weighted images. Cerebellopontine angle cisterns, labyrinthine structures, and internal auditory canals appear symmetric and unremarkable as visualized on these noncontrast images. Sinuses: There is small amount of mucosal thickening paranasal sinuses. No air-fluid levels. Mastoid air cells: No significant mastoid effusion. Orbits: Unremarkable as visualized. No exophthalmos or evidence of mass. Soft tissues: Unremarkable as visualized. IMPRESSION: 1. No evidence of acute intracranial abnormality with no evidence of acute infarct, acute hemorrhage, or mass lesion based on noncontrast evaluation. 2. Mild white matter changes likely microvascular change with chronic focal bilateral lacunar infarcts. 3. Multiple chronic microhemorrhages and correlate if patient has chronic hypertension. Electronically signed by: Farzana Barnhart On 12/15/2019 09:56:07 AM
[2019-12-15] MEDS ORDERED: MOM30SS2 PO (11:40)
[2019-12-15] MEDS ORDERED: ATOR1TAB21 PO (11:40)
[2019-12-15] MEDS ORDERED: GOLYLQ PO (11:40)
[2019-12-15] MEDS ORDERED: ASPI81CH8 PO (11:40)
--- NOTE | 2019-12-15 13:36 | DS.PDOC ---
Discharge Summary General Date of Admission Dec 14, 2019 at 02:26 Date of Discharge 12/15/2019 Discharge Summary PROCEDURES PERFORMED DURING STAY: [None]. ADMITTING DIAGNOSES / DISCHARGE DIAGNOSES: s/p Hypotension - possibly 2/2 adjusted dry weight Dizziness and Ringing in Ears ESRD on HD (TTS) CAD s/p PCI w stent NIDM2 w peripheral neuropathy PVD Hypothyroidism s/p Constipation GI prophylaxis DVT prophylaxis COMPLICATIONS/CHIEF COMPLAINT: Hypotension HISTORY OF PRESENT ILLNESS: Patient is a 49 year old female with a PMHx of ESRD on HD (TTS), PVD, CAD s/p stent, Grade 1 DD CHF, IDDM2, Hypothyroidism, [place] of Chronic disease, Neuropathy, GERD who was transferred from [facility] for a higher level of care. During dialysis yesterday her blood pressure was low. At the time she had shortness of breath and felt dizzy. On arrival to [place] [facility], her SBP was in the 70s. Improved with fluid boluses. Patient was thought to have sepsis after her lactic acid was noted to be 2.7; she receive Vancomycin and Cefepime and was transferred to [facility]. Upon arrival to [facility], patient BP has remained in the low 100s / upper 90s. Lactic acid was normal. Nephrology was called on consultation. HOSPITAL COURSE: s/p Hypotension - possibly 2/2 adjusted dry weight - May require less volume removal overall - Orthostatic vital signs negative - Lactic acid normal - ECHO (12/14): EF 55%; mild-moderate tricuspid regurgitation, pulmonary pressures 45-50, small pericardial effusion, no evidence of tamponade; discussed findings of ECHO with Dr. Hart - s/p IV fluids - Nephrology on consultation - Will have outpatient follow up with Cardiology for repeat ECHO within 2 weeks Dizziness and Ringing in Ears - Reports resolution of dizziness - Orthostatic vital signs negative - MRI brain (12/14): 1. No evidence of acute intracranial abnormality with no evidence of acute infarct, acute hemorrhage, or mass lesion based on noncontrast evaluation. 2. Mild white matter changes likely microvascular change with chronic focal bilateral lacunar infarcts. 3. Multiple chronic microhemorrhages and correlate if patient has chronic hypertension. ESRD on HD (TTS) - Will be dialyzed tomorrow - Nephrology on consultation CAD s/p PCI w stent - c/w ASA and Statin - s/p Isosorbide mononitrate NIDM2 w peripheral neuropathy - c/w Levemir and ISS PVD - c/w ASA and Atorvastatin Hypothyroidism - c/w Levothyroxine s/p Constipation - Has had bowel movements yesterday - Will resume stool softeners on discharge - Go-Lytely has been added GI prophylaxis - c/w Omeprazole DVT prophylaxis - c/w Heparin DISCHARGE MEDICATIONS: Please see below. ALLERGIES: Please see below. PHYSICAL EXAMINATION ON DISCHARGE: Vitals (See below) General: Lying in bed, remains comfortable, AAOx3 HEENT: NC, AT CVS: +S1S2 Lungs: Fair air entry b/l, no wheezing / rhonchi / crackles Abdomen: Soft, non-distended, non-tender Extremities: No LE edema is appreciated, - Calf tenderness LABORATORY DATA: Please see below. ACTIVITY: [As tolerated]. DISCHARGE PLAN: Follow up with PCP, Nephrology and Cardiology within 7 days Remain complaint with treatment plan and medications Return to the ER if you experience any problems DISPOSITION: Home DISCHARGE CONDITION: [Stable]. TIME SPENT ON DISCHARGE: 35 minutes Vital Signs/I&Os Vital Signs Date Time Temp Pulse Resp B/P (MAP) Pulse Ox O2 Delivery O2 Flow Rate FiO2 12/15/19 06:00 97.2 70 16 109/60 (76) 99 Room Air I&O- Last 24 Hours up to 6 AM 12/15/19 05:59 Intake Total 840 ml Output Total 0 ml Balance 840 ml Microbiology Microbiology 12/14/19 Blood Culture - Preliminary, Resulted No growth after 24 hours . All specim... Discharge Medications Scheduled Aspirin (Children's Aspirin) 81 Mg Tab.chew, 81 MG PO DAILY Atorvastatin Calcium (Atorvastatin Calcium) 20 Mg Tablet, 20 MG PO QHS Insulin Glargine,Hum.rec.anlog (Basaglar Kwikpen U-100) 100 Unit/1 Ml Insuln.pen, 20 UNIT SC BID, (Reported) Levothyroxine Sodium (Levothyroxine Sodium) 125 Mcg Tablet, 125 MCG PO QAM, (Reported) Omeprazole (Omeprazole) 40 Mg Capsule.dr, 40 MG PO BID, (Reported) Scheduled PRN Magnesium Hydroxide (Milk of Magnesia) 400 Mg/5 Ml Oral.susp, 30 ML PO DAILY PRN for CONSTIPATION Polyethylene Glycol 3350 (Miralax) 119 Gm Powder, 17 GM PO BID PRN for CONSTIPATION, (Reported) Allergies Coded Allergies: Penicillins (Verified Allergy, Unknown, UNKNOWN CHILDHOOD REACTION, 09/11/18) PER [facility] RECORDS PT HAS RECEIVED MEROPENEM AND CEFEPIME IN THE PAST SAURAV ALBARADO MD Dec 15, 2019 13:36
--- NOTE | 2019-12-16 15:04 | IPN ---
DATE: 12/15/2019 SUBJECTIVE: Patient was seen and examined at the bedside today morning. She is afebrile and hemodynamically stable. She was given GoLYTELY yesterday. She reports she had multiple bowel movements. Her constipation is relieved now. She is no longer having dizziness, however, she still complains of having ringing in the ears. She got an MRI done, which did not show any acute pathology. Patient also got an echocardiogram done. OBJECTIVE: Vital signs: Temperature 97.2 degrees Fahrenheit, blood pressure 109/60, pulse 70, respiratory rate 16, saturating 99% on room air. Intake and output: Urine output is not recorded. Weight in the bed scale is 70.3 kg yesterday. PHYSICAL EXAMINATION: GENERAL: Patient is awake, alert and oriented x3, lying in the bed in no apparent distress. HEAD AND NECK: Extraocular muscles intact, pupils equally round and reactive to light. Mucous membranes are moist. Neck is supple. There is no JVD. CARDIOVASCULAR: S1, S2, regular rate. No edema of the bilateral lower extremities . RESPIRATORY: Clear to auscultation bilaterally, currently no rales or rhonchi. ABDOMEN: Soft, positive bowel sounds, nontender. No organomegaly. MUSCULOSKELETAL: No clubbing or cyanosis. Pulses are 2+. She has a right thigh AV graft with thrill and bruit. REGULATORY ADMINISTRATOR: No focal deficit. Strength 5/5 in all extremities. LABORATORY REVIEWS: CBC and BMP is from yesterday; no new labs available today. IMAGING STUDIES: A MRI of the brain was done, which showed no evidence of acute intracranial abnormality, mild white matter changes; likely microvascular in nature. Echocardiogram was also done. According to verbal report, the patient has a small pericardial effusion with no evidence of tamponade. CURRENT INPATIENT MEDICATIONS: Patient's medications were all reviewed by myself. There is change in the medications today as compared with yesterday. ASSESSMENT & PLAN: 1. End-stage renal disease: Patient's regular dialysis days are Sunday, and Sunday. No urgent need of dialysis today. Volume status is optimized. 2. Orthostatic hypotension: It has resolved after I.V. fluid hydration and stopping the Isosorbide. No evidence of sepsis at this time. 3. Small pericardial effusion: As recommended by cardiology, they recommended a repeat echocardiogram in two weeks. Volume status is optimal at this time. 4. Anemia and end-stage renal disease: Hemoglobin level is slightly suboptimal. It will be managed as an outpatient, no need of blood transfusion at this time. DISPOSITION: Patient is optimized from a nephrology standpoint to be discharged home. She will be followed up as an outpatient at the dialysis center. LESVIA
--- NOTE | 2019-12-18 08:15 | ECHO ---
DATE OF PROCEDURE: 12/15/2019 Age: Gender: Female Height: 160 cm Weight: 70 kg. REFERRING PHYSICIAN: Dr. Pedrito Castillo INDICATION: Dyspnea, hypertension MEASUREMENTS: RV 3.8 IVS 1.0 LV 3.6 LVPW 0.8 Aorta 2.5 LA 4.2 IVC 2.1 Mitral E wave velocity 97, A wave 38 E prime septal 10.1 E prime lateral 9.6 FINDINGS: The study is of good technical quality. The patient is in sinus rhythm. Left ventricle is normal size and has normal contractility. I estimate overall left ventricular ejection fraction (LVEF) about 65 to 70%. No segmental wall motion abnormalities are appreciated. Right ventricle appears to have normal size and systolic function. Left atrium is mildly increased in size. Right atrium appears normal. Aortic, mitral, tricuspid and pulmonic valves all appear normal by 2D imaging. There is small pericardial effusion without any signs of cardiac compression. Small amount of pericardial fat pad is also appreciated. Inferior vena cava is dilated with minimal collapse with inspiration indicative of elevated central venous pressure. Aortic root and visualized segment of aortic arch appear grossly normal. Doppler interrogation reveals competent aortic valve. There is trace mitral and mild to moderate tricuspid insufficiency. Calculated pulmonary artery pressure is in high 40s to low 50s corresponding to moderate pulmonary hypertension. Mild pulmonic insufficiency is also noted. Mitral inflow pattern, tissue Doppler imaging of mitral annulus was likely normal diastolic function, even though tissue Doppler velocity of mitral annulus is mildly reduced. CONCLUSIONS: 1. Study is of good technical quality. The patient is in sinus rhythm. 2. Normal LV size with preserved LV systolic and likely also diastolic function. 3. Normal RV size and systolic function. 4. No hemodynamically significant aortic mitral and pulmonic valvular disease. 5. Mild to moderate tricuspid insufficiency. 6. Elevated central venous pressure and likely moderate pulmonary hypertension 7. Small noncompressive pericardial effusion. COMMENT: Follow up of pericardial effusion in one to two weeks or if change in clinical condition is recommended [facility]
--- NOTE | 2020-01-02 14:14 | ECGEPIP ---
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
--- NOTE | 2020-01-05 09:30 | REP ---
PORTABLE CHEST X-RAY CLINICAL: Shortness of breath. COMPARISON: 05/08/2019. FINDINGS: Stable cardiomegaly. Bilateral lower lobe opacities suggesting infiltrate/atelectasis and possible small effusions. No pneumothorax. Skeletal structures are intact. IMPRESSION: Bibasilar opacities. Differential diagnosis includes multifactorial pneumonia and congestive heart failure (CHF). MTDD
== END 2019-12-15 14:37 | disposition home or self-care (01) | DRG 207 ==
LOC: M MSPAV 02:26
PROVIDERS: ADMIT Internal Medicine; ATTEND Internal Medicine
DX: I95.89 Other hypotension (principal); N18.6 End stage renal disease; I31.3 Pericardial effusion (noninflammatory); E11.42 Type 2 diabetes mellitus with diabetic polyneuropathy; I50.32 Chronic diastolic (congestive) heart failure; E11.51 Type 2 diabetes mellitus with diabetic peripheral angiopathy without gangrene; N25.81 Secondary hyperparathyroidism of renal origin; I25.10 Atherosclerotic heart disease of native coronary artery without angina pectoris; D63.1 Anemia in chronic kidney disease; K21.9 Gastro-esophageal reflux disease without esophagitis; E03.9 Hypothyroidism, unspecified; H54.8 Legal blindness, as defined in USA; R42 Dizziness and giddiness; K59.00 Constipation, unspecified; Z99.2 Dependence on renal dialysis; Z95.5 Presence of coronary angioplasty implant and graft; Z79.82 Long term (current) use of aspirin; Z79.4 Long term (current) use of insulin; Z79.899 Other long term (current) drug therapy; Z88.0 Allergy status to penicillin

== ENCOUNTER 2019-12-31 06:09 | Inpatient (IN) | payer OTHER ==
[~2019-12-31] VITALS: Ht 160 cm; Wt 76.5 kg
[2019-12-31] VITALS (7 sets, daily range): BP systolic 78–104; BP diastolic 50–61
[~2019-12-31 06:09] MED LIST changes: +ASPI81CH8 PO; +ATOR1TAB21 PO; +GOLYLQ PO; +LEVO125T4 PO; +MOM30SS2 PO
[2019-12-31 06:57] LABS: BASO # 0.1 10^3/uL (0.0-0.2); EOS # 0.1 10^3/uL (0.0-0.5); EOS % 0.7 % (0.0-3.0); HEMOGLOBIN 11.4 g/dl (12.0-15.5); LYMPH % 13.9 % (24.0-44.0); MEAN CORPUSCULAR HEMOGLOBIN 31.4 pg (27.0-33.0); MEAN CORPUSCULAR HGB CONC 29.2 g/dl (32.0-36.5); MEAN CORPUSCULAR VOLUME 107.4 fl (80.0-96.0); MONO # 0.6 10^3/uL (0.0-0.8); MONO % 8.2 % (0.0-5.0); NEUTROPHILS # 5.2 10^3/uL (1.5-8.5); NEUTROPHILS % 75.3 % (36.0-66.0); PLATELET COUNT, AUTOMATED 146 10^3/uL (150-450); RED BLOOD COUNT 3.63 10^6/uL (4.00-5.40); WHITE BLOOD COUNT 6.9 10^3/uL (4.0-10.0)
[2019-12-31 07:14] LABS: INR 1.27; PROTHROMBIN TIME 16.2 SECONDS (11.8-14.0)
--- NOTE | 2019-12-31 07:20 | REPVR ---
PROCEDURE INFORMATION: Exam: XR Chest, 2 Views Exam date and time: 12/31/2019 6:38 AM Age: 49 years old Clinical indication: Other: Dyspnea, cough; Additional info: Dyspnea/cough TECHNIQUE: Imaging protocol: XR of the chest Views: 2 views. COMPARISON: CR PORTABLE CHEST X-RAY 12/14/2019 10:52 AM FINDINGS: Lungs: Persistent parenchymal opacities of the lower lungs and partial interstitial opacity of right upper lobe. Small amount of fluid within the minor fissure. Pleural space: Bilateral pleural effusions. Heart/Mediastinum: Similar heart size. Bones/joints: Unremarkable. IMPRESSION: 1. Persistent lower lung areas of infiltrate and/or atelectasis with developing interstitial opacity of right upper lobe. 2. Persistent bilateral pleural effusions. Electronically signed by: Dianna Gamino On 12/31/2019 07:19:42 AM
[2019-12-31 08:11] LABS: BILIRUBIN,DIRECT 0.3 MG/DL (0.0-0.2); BILIRUBIN,TOTAL 1.4 MG/DL (0.2-1.0); CALCIUM LEVEL 9.4 MG/DL (8.5-10.1); CK-MB VALUE MASS 9.7 NG/ML (<3.6); CREATININE FOR GFR 5.05 MG/DL (0.55-1.30); GLOMERULAR FILTRATION RATE 9.7 (>58); MB/CK RELATIVE INDEX 4.9 (< OR =4); POTASSIUM SERUM 7.1 MEQ/L (3.5-5.1); TOTAL PROTEIN 8.1 GM/DL (6.4-8.2); TROPONIN I 0.08 NG/ML (< 0.10)
[2019-12-31] MEDS ORDERED: ISOVUE-370 76% 100ML VIAL As Ordered ONE (08:43)
--- NOTE | 2019-12-31 09:31 | REPVR ---
PROCEDURE INFORMATION: Exam: CT Abdomen And Pelvis With Contrast Exam date and time: 12/31/2019 8:49 AM Age: 49 years old Clinical indication: Abdominal pain; Generalized; Additional info: Abd pain/distention TECHNIQUE: Imaging protocol: Computed tomography of the abdomen and pelvis with intravenous contrast. Radiation optimization: All CT scans at this facility use at least one of these dose optimization techniques: automated exposure control; mA and/or kV adjustment per patient size (includes targeted exams where dose is matched to clinical indication); or iterative reconstruction. Contrast material: ISOVUE 370; Contrast volume: 100 ml; Contrast route: INTRAVENOUS (IV); COMPARISON: CT ABD PELVIS W/O CONTRAST 05/07/2019 10:21 PM FINDINGS: Liver: Hepatomegaly longitudinal diameter 19.4 cm. Gallbladder and bile ducts: Cholelithiasis. Limited definition of the gallbladder which may show accentuation of the wall which could be on the basis of diffuse changes of edema and volume overload. Pancreas: Normal. No ductal dilation. Spleen: Borderline splenomegaly longitudinally measuring 12.7 cm. Adrenals: Normal. No mass. Kidneys and ureters: Bilateral renal vascular calcifications. Additional intrarenal nonobstructive calculi may be present. Stomach and bowel: Moderate stool within portions of the colon. Appendix: The appendix is not definitely visualized. Intraperitoneal space: Small amount of fluid surrounding the spleen, liver and throughout the abdominal mesentery and pelvis. Vasculature: Calcified abdominal aorta. Lymph nodes: Unremarkable. No enlarged lymph nodes. Bladder: Unremarkable as visualized. Reproductive: Most likely postoperative hysterectomy. Bones/joints: Area of sclerosis proximal left femur. Soft tissues: Anasarca. Other findings: For findings within the chest see CTA chest dictation. IMPRESSION: 1. Abdominal ascites and anasarca. 2. Hepatomegaly. 3. Bilateral renal vascular calcifications and possible intrarenal collecting structure calculi nonobstructive. 4. Cholelithiasis with accentuation of the gallbladder wall which may be on the basis of diffuse fluid overload. Electronically signed by: Dianna Gamino On 12/31/2019 09:30:43 AM
--- NOTE | 2019-12-31 09:52 | REPVR ---
PROCEDURE INFORMATION: Exam: CT Angiography Chest With Contrast Exam date and time: 12/31/2019 8:49 AM Age: 49 years old Clinical indication: Shortness of breath; Additional info: SOB TECHNIQUE: Imaging protocol: Computed tomographic angiography of the chest with intravenous contrast. 3D rendering (Not supervised by radiologist): MIP and/or 3D reconstructed images were created by the technologist. Radiation optimization: All CT scans at this facility use at least one of these dose optimization techniques: automated exposure control; mA and/or kV adjustment per patient size (includes targeted exams where dose is matched to clinical indication); or iterative reconstruction. Contrast material: ISOVUE 370; Contrast volume: 100 ml; Contrast route: INTRAVENOUS (IV); COMPARISON: CT Chest without contrast 05/03/2019 9:19 AM FINDINGS: Pulmonary arteries: Suspicion partial intraluminal filling defect reflecting pulmonary embolus within subsegmental artery to the right lower lung posteriorly series 401 images 93-115. Aorta: Trace calcification thoracic aorta. Veins: Gas within branching mediastinal venous structures may be related to contrast injection. Lungs: Linear areas of scarring or atelectasis throughout both lungs. There are several subpleural parenchymal nodular densities within the left upper lobe measuring 2-3 mm. Few subpleural interstitial densities within the right upper lobe laterally. More focal airspace consolidation in the right lower lobe concerning for pneumonia and possible component of atelectasis. Pleural space: Bilateral pleural effusions greatest volume on the right. Minimal effusion on the left. Heart: Pericardial effusion maximum diameter 1.7 cm. Calcification distribution of coronary arteries. Lymph nodes: Small mediastinal lymph nodes. Bones/joints: Unremarkable. No acute fracture. Soft tissues: Anasarca. IMPRESSION: 1. Pulmonary embolus subsegmental artery right lower lung posteriorly. 2. Pericardial effusion. 3. Bilateral pleural effusions greater on the right. 4. Consolidation right lower lobe concerning for pneumonia with partial involvement of atelectasis. 5. Additional areas of interstitial thickening/scarring or atelectasis within both lungs. 6. Subpleural nodules left upper lobe and subpleural irregular slightly nodular configured densities of the right upper lobe. Findings could reflect infectious or postinflammatory densities versus parenchymal nodules.For patients at low risk (minimal or absent history of smoking and of other known risk factors), no routine follow-up is indicated. For patients at high risk (history of smoking or of other known risk factors), consider optional CT at 12 months. (Ruthie et al., Fleischner Society, 2017) Electronically signed by: Dianna Gamino On 12/31/2019 09:51:53 AM
[2019-12-31] MEDS ORDERED: diazePAM 5 MG TAB PO ONE (10:45)
[2019-12-31] MEDS ORDERED: HumaLOG INSULIN (NovoLOG) PER UNIT SC STA (10:54)
[2019-12-31] MEDS ORDERED: DEXTROSE 50% 50 ML SYRINGE IV STA (10:54)
[2019-12-31] MEDS ORDERED: HEPARIN SOD (PORCINE) 5000UNITS/ML 1ML VIAL/SYRINGE IV ONE (11:15)
[2019-12-31] MEDS ORDERED: DEXTROSE 50% 50 ML SYRINGE IV PRN (11:15)
[2019-12-31] MEDS ORDERED: GLUCAGON INJ 1MG VIAL SC PRN (11:15)
[2019-12-31] MEDS ORDERED: CALCIUM GLUCONATE 1,000 MG in D5W MINI-BAG PLUS 100 ML IV ONE (11:15)
[2019-12-31] MEDS ORDERED: HEPARIN SOD (PORCINE) 5000UNITS/ML 1ML VIAL/SYRINGE IV PRN (11:15)
[2019-12-31] MEDS ORDERED: GLUCOSE 4GM CHEW TABLET PO PRN (11:15)
[2019-12-31] MEDS ORDERED: HumaLOG INSULIN (NovoLOG) PER UNIT SC SCH (12:00)
--- NOTE | 2019-12-31 12:00 | HPEPDOC ---
[facility] Medical History & Physical Date of Admission Dec 31, 2019 Date of Service: Dec 31, 2019 History and Physical CHIEF COMPLAINT: Progressive shortness of breath HISTORY OF PRESENT ILLNESS: This is a 49-year-old female with past medical history of ESRD secondary to diabetic nephropathy with right thigh fistula gets dialysis TTS recently had 2 days of dialysis in a row at the nephrology dialysis center. States that she has been getting progressively short of breath over the last 1 week, to an extent that she gets short of breath on minimal exertion. The patient states that she has noticed increased lower extremity edema, she states that she feels bloated in her belly and on minimal exertion gets short of breath. She also states that on the day breath she gets mild chest pain on the right side. The patient denies any left-sided or substernal chest pain. Denies any palpitations. Denies any dizziness. The patient denies any fever, rigors, chills. The patient denies any loss of consciousness. She was recently admitted to the hospital at [facility] with diagnosis of hypotension and at that time, her antihypertensive medications were thought to be the cause of her hypotension and we were discontinued. 2-D echo done at that time showed very mild pericardial effusion along with that. Possible grade 1 diastolic dysfunction with normal EF. In the ER. CT scan of the abdomen, pelvis and the CTA was done which showed a subsegmental pulmonary embolism with 1.7 cm maximal pericardial effusion. I had a discussion with both nephrology and CT surgery regarding the patient and we have decided to admit the patient to ICU for further management. REVIEW OF SYSTEMS: 12 point review of systems negative except as listed in HPI PAST MEDICAL/ SURGICAL HISTORY: ESRD w anemia and secondary hyperparathyroidism (TTS via right thigh fistula) / LUE fistula no longer in use bc of vascular access steal syndrome PVD CAD s/p PCI w stent GERD DM w peripheral neuropathy Chronic Grade 1 Diastolic CHF (Echo EF 65% Apr 2019) Anemia of Chronic disease Hypothyroidism Legally blind Hysterectomy SOCIAL HISTORY: -tobacco / - alcohol / - drugs FAMILY HISTORY: Several family members have CKD ALLERGIES: Please see below. HOME MEDICATIONS: Please see below. PHYSICAL EXAMINATION: GENERAL APPEARANCE: anxious / well developed HEENT: MMM &P / EOMI, no JVD CARDIOVASCULAR: S1, S2 heard. S3 gallop heard as well. No other murmurs a ppreciated. No pericardial rub. LUNGS: Lungs are clear auscultation bilaterally with a distant breath sounds at the left lower lung field. ABDOMEN: soft & NT MUSCULOSKELETAL: KEVIN x4 extremities, 1+ pedal edema. NEUROLOGICAL: CN 2-12 intact / strength 5/5 LABORATORY DATA: Reviewed IMAGING: Reviewed Assessment and plan is a 49 yr old w a hx of ESRD, PVD, DM w neuropathy, CAD status post PCI in the remote past and hypothyroidism is currently being admitted for progressive shortness of breath, likely secondary to fluid overload, pulmonary embolism and pericardial effusion and will be admitted to ICU for further care. 1. Progressive shortness of breath: Likely factorial, most likely secondary to fluid overload, pulmonary embolism, pericardial effusion. We will address the i nitial cause. 2. Pulmonary embolism. CTA done which shows, Pulmonary embolus subsegmental artery right lower lung posteriorly. Bilateral pleural effusions greater on the right and possible Consolidation right lower lobe concerning for pneumonia with partial involvement of atelectasis. . She also has Subpleural nodules left upper lobe and subpleural irregular slightly nodular configured densities of the right upper lobe. Findings could reflect infectious or postinflammatory densities versus parenchymal nodules. In any case. Currently, the patient will be started on heparin drip. Pulmonary embolism protocol. Discussion about the oral anticoagulation will be done once we are sure no procedural necessity is there. 3. Pericardial effusion. The patient has a pericardial effusion of 1.7 cm at the maximum diameter. No pulses paradoxus, no kousmell sign. Patient is not tachycardic, but the patient's blood pressure is in systolics of 90s. The patient is been able to speak in full sentences. I spoke with Dr. Lopez in detail and a stat 2-D echo has been ordered and depending upon the echo. Will decide whether the patient would require any intervention. Continue ICU care at this time. 4. Fluid overload. The patient has bilateral pleural effusions as well as anasarca on the CT abdomen. Spoke with nephrology for the dialysis. The initial sample was dialyzed and the repeat potassium has been ordered. In case the patient has hyperkalemia. Nephrology, likely will dialyze the patient today. In any case, the patient does have fluid overload symptomatology and will benefit from dialysis today. No acidosis noted. No N, V noted. We will assess the need of dialysis again once the potassium is back. 5. ESRD on hemodialysis for the last 6 years. Initially had paratonia dialysis, but lately has been on hemodialysis. The patient's primary rate is 67 KG is as per the new recommendations from nephrology as per the patient. Dialysis care as per nephrology 6 CAD s/p PCI w stent isosorbide, ASA, statin 7. DM w peripheral neuropathy : FSBS, SSI, hypoglycemia protocol, A1C, levemir 5 units BID 8. PVD : ASA & statin 9. Hypothyroidism: Repeat TSH is 10. Will get T3, T4 to decide with the rehabilitation to go up on the levothyroxine dose. Continue home medications are contraindicated. Total critical care time time spent including coordination of care in terms of coordinating with nephrology as well as CT surgery, review of chart documentation and actual patient contact is around 50 minutes. The patient is high risk because of worsening dyspnea. Moderate pericardial effusion, pulmonary embolism and will be admitted to ICU for further care. Vital Signs Vital Signs Date Time Temp Pulse Resp B/P (MAP) Pulse Ox O2 Delivery O2 Flow Rate FiO2 12/31/19 09:00 75 96/63 (74) 99 Room Air 12/31/19 07:15 22 12/31/19 07:00 98.0 12/31/19 06:30 95 Laboratory Data Labs 24H Laboratory Tests 2 12/31/19 06:29: Prothrombin Time 16.2H, Prothromb Time International Ratio 1.27, Anion Gap 7L, Glomerular Filtration Rate 9.7L, Calcium Level 9.4, Total Bilirubin 1.4H, Direct Bilirubin 0.3H, Aspartate Amino Transf (AST/SGOT) 107H, Alanine Aminotransferase (ALT/SGPT) 45, Alkaline Phosphatase 179H, Total Creatine Kinase 198H, Creatine Kinase MB 9.7H, Creatine Kinase MB Relative Index 4.90H, Troponin I 0.08, NG-Qte-P-Type Natriuretic Peptide 51315A, Total Protein 8.1, Albumin 3.0L, Albumin/Globulin Ratio 0.6L, Lipase 184, Thyroid Stimulating Hormone (TSH) 17.000H 12/31/19 06:30: Immature Granulocyte % (Auto) 0.9, Neutrophils (%) (Auto) 75.3H, Lymphocytes (%) (Auto) 13.9L, Monocytes (%) (Auto) 8.2H, Eosinophils (%) (Auto) 0.7, Basophils (%) (Auto) 1.0, Neutrophils # (Auto) 5.2, Lymphocytes # (Auto) 1.0L, Monocytes # (Auto) 0.6, Eosinophils # (Auto) 0.1, Basophils # (Auto) 0.1, Nucleated Red Blood Cells % (auto) 0.0 12/31/19 11:17: CBC/BMP Laboratory Tests 12/31/19 06:29 12/31/19 06:30 Home Medications Scheduled Aspirin (Children's Aspirin) 81 Mg Tab.chew, 81 MG PO DAILY Atorvastatin Calcium (Atorvastatin Calcium) 20 Mg Tablet, 20 MG PO QHS Insulin Glargine,Hum.rec.anlog (Basaglar Kwikpen U-100) 100 Unit/1 Ml Insuln.pen, 20 UNIT SC BID Levothyroxine Sodium (Levothyroxine Sodium) 125 Mcg Tablet, 125 MCG PO QAM Omeprazole (Omeprazole) 40 Mg Capsule.dr, 40 MG PO BID Scheduled PRN Magnesium Hydroxide (Milk of Magnesia) 400 Mg/5 Ml Oral.susp, 30 ML PO DAILY PRN for CONSTIPATION Polyethylene Glycol 3350 (Miralax) 119 Gm Powder, 17 GM PO BID PRN for CONSTIPATION Allergies Coded Allergies: Penicillins (Verified Allergy, Unknown, UNKNOWN CHILDHOOD REACTION, 09/11/18) PER [facility] RECORDS PT HAS RECEIVED MEROPENEM AND CEFEPIME IN THE PAST A-FIB/CHADSVASC A-FIB History Current/History of A-Fib/PAF?: No Current PO Anticoag Therapy: No JEMIMA CHAN MD Dec 31, 2019 12:00
[2019-12-31] MEDS ORDERED: ECOT81TA5 PO (12:11)
[2019-12-31] MEDS ORDERED: ATOR1TAB21 PO (12:11)
[2019-12-31] MEDS ORDERED: MILKSUS3 PO (12:14)
[2019-12-31] MEDS ORDERED: VITA50005 PO (12:14)
[2019-12-31] MEDS ORDERED: SEVE800T3 PO (12:14)
[2019-12-31 12:32] LABS: ALBUMIN 3.3 GM/DL (3.2-5.2); CALCIUM LEVEL 9.8 MG/DL (8.5-10.1); CREATININE FOR GFR 5.05 MG/DL (0.55-1.30); GLOMERULAR FILTRATION RATE 9.7 (>58); PHOSPHORUS LEVEL 4.1 MG/DL (2.5-4.9); POTASSIUM SERUM 4.8 MEQ/L (3.5-5.1); TROPONIN I 0.11 NG/ML (< 0.10)
[2019-12-31] MEDS: LEVOTHYROXINE 150MCG TABLET (0.15MG) PO SCH (13:43)
[2019-12-31] MEDS: HEPARIN DRIP 25,000 UNITS in IV 1 EA IV SCH (13:54)
[2019-12-31] MEDS: HumaLOG INSULIN (NovoLOG) PER UNIT SC SCH ×2 (17:30→21:34)
[2019-12-31] MEDS ORDERED: PROPOFOL 1,000 MG/100 ML VIAL As Ordered ONE (17:37)
[2020-01-01] VITALS (24 sets, daily range): BP systolic 74–107; BP diastolic 46–64
[2020-01-01 06:02] LABS: HEMATOCRIT 36.7 % (36.0-47.0); HEMOGLOBIN 10.8 g/dl (12.0-15.5); MEAN CORPUSCULAR HGB CONC 29.4 g/dl (32.0-36.5); MEAN CORPUSCULAR VOLUME 105.5 fl (80.0-96.0); PLATELET COUNT, AUTOMATED 136 10^3/uL (150-450); RED BLOOD COUNT 3.48 10^6/uL (4.00-5.40); WHITE BLOOD COUNT 6.3 10^3/uL (4.0-10.0)
[2020-01-01 06:36] LABS: ALBUMIN 2.8 GM/DL (3.2-5.2); BILIRUBIN,TOTAL 1.3 MG/DL (0.2-1.0); CALCIUM LEVEL 9.1 MG/DL (8.5-10.1); CREATININE FOR GFR 5.97 MG/DL (0.55-1.30); POTASSIUM SERUM 5.6 MEQ/L (3.5-5.1); TOTAL PROTEIN 7.2 GM/DL (6.4-8.2)
[2020-01-01] MEDS: LEVOTHYROXINE 150MCG TABLET (0.15MG) PO SCH (06:40)
--- NOTE | 2020-01-01 07:19 | CR ---
DATE OF CONSULTATION: 12/31/2019 REQUESTING PHYSICIAN: Karen BARRETT in ER and Dr Ke Galarza MD. REASON FOR CONSULTATION: Management of end-stage renal disease and hypokalemia. CHIEF COMPLAINT: Patient presented to the Emergency Room with progressive shortness of breath and abdominal distention. HISTORY OF PRESENT ILLNESS: Subha Trivedi is a 49-year-old female with past medical history of end-stage renal disease on hemodialysis every Sunday, , Sunday via the right thigh AV graft, history of coronary artery disease, diabetes mellitus with peripheral neuropathy, and other chronic comorbid conditions as mentioned below. She was fluid overloaded and had shortness of breath as an outpatient, so she was getting extra session of dialysis. She was dialyzed two days in a row, and despite back to back hemodialysis, her shortness of breath did not get better. She kept on having abdominal distention. So, she presented to the Emergency Room. In the Emergency Room, she got the CT angio of the chest done, which showed right-sided pulmonary embolism with small pericardial effusion and bilateral pleural effusions; right was worse than left. Patient is being admitted under the hospitalist service. Nephrology service was called for further help in the management of this patient. Patient was also found to have hyperkalemia with a potassium of 7.1 on the labs but it was done on a hemolyzed specimen. I saw and evaluated the patient today morning at the bedside. She was calm, lying in bed and hemodynamically stable when I saw her. PAST MEDICAL HISTORY: End-stage renal disease on hemodialysis every Sunday, , Sunday, history of chronic diastolic congestive heart failure, peripheral vascular disease, coronary artery disease; status post stents, diabetes mellitus type 2, LVEF of around 65% on echo in April 2019, anemia and end-stage renal disease, hypothyroidism, legal blindness. PAST SURGICAL HISTORY: Status post hysterectomy in the past, status post right thigh AV graft. ALLERGIES: She is allergic to penicillin. FAMILY HISTORY: Positive family history of chronic kidney disease in the family members. SOCIAL HISTORY: Patient denies any smoking, illicit drug abuse, or alcohol abuse. REVIEW OF SYSTEMS: CONSTITUTIONAL: Patient reports feeling weak and tired. EYES: She reports legal blindness. ENT: She denies any dysphagia or odynophagia. CARDIOVASCULAR: She does report lower extremity edema and shortness of breath. RESPIRATORY: She reports progressive shortness of breath. She denies any cough or wheezing. GI: She denies any nausea, diarrhea or constipation. GENITOURINARY: She reports decreased urine output. MUSCULOSKELETAL: She reports lower extremity swelling. SKIN: She denies any rashes or ulcers. PSYCHOLOGIC: She denies any depression or anxiety at this time. ENDOCRINE: She reports diabetes mellitus type 2. HEMATOLOGIC/ONCOLOGIC: She denies any easy bleeding or bruising. All other review of systems is negative. PHYSICAL EXAMINATION: GENERAL: Patient is awake, alert, and oriented x3, lying in bed, in no apparent distress. VITALS: Temperature 98 degrees Fahrenheit, blood pressure 96/63, pulse 75, respiratory rate 18, saturating 99% on room air. HEAD AND NECK: Extraocular muscles intact. Pupils equally round and reactive to light. Mucous membranes are moist. Neck is supple. There is moderately elevated JVD. CARDIOVASCULAR: S1, S2. Regular rate. 1+ edema of the bilateral lower extremities. RESPIRATORY: Decreased breath sounds at the bases. Decreased vocal resonance bilaterally at the bases; right is worse than left. ABDOMEN: Soft, distended, mild amount of abdominal ascites noted with dullness to percussion in the flanks. GENITOURINARY: No hernias noted. MUSCULOSKELETAL: No clubbing or cyanosis. 1+ edema of the bilateral lower extremities. ARCHIVES TECHNICIAN: No focal deficit. Power is 5/5 in all extremities. Patient has legal blindness. PSYCHOLOGIC: Normal mood and affect. LABORATORY DATA: CBC showed WBC 6.9, hemoglobin 11.4, platelets 146,000. INR 1.27. BMP showed sodium 134, potassium 7.1, chloride 97, bicarb 30, BUN 34, creatinine 5.05, calcium 9.4. Total bilirubin 1.4, AST 107, ALT 45, alkaline phosphatase 179. Troponin 0.08. Pro-BNP 64,331. TSH 17. IMAGING STUDIES: A CAT scan of the abdomen and pelvis was done, which showed abdominal ascites, anasarca, and hepatomegaly. CT angiogram of the chest was done, which showed pulmonary embolus, subsegmental artery in the right lower lung, pericardial effusion, bilateral pleural effusion; worse on the right. Consolidation in the right lower lobe concerning for pneumonia. CURRENT INPATIENT MEDICATIONS: Patient was given one dose of I.V. calcium gluconate. She has been started on Heparin drip. She was given one dose of valium 5 mg p.o. times one dose. HOME MEDICATIONS: Patient reports that she takes: 1. Insulin Basaglar 20 units subcutaneously twice a day. 2. Levothyroxine 125 mcg p.o. daily in the morning. 3. MiraLax p.r.n. for constipation. 4. Aspirin 81 mg p.o. daily. 5. Lipitor 20 mg p.o. q.h.s. ASSESSMENT: A 49-year-old female with end-stage renal disease on hemodialysis every Sunday, , Sunday, being admitted this time with right-sided pulmonary embolism, anasarca, pleural effusion and a small pericardial effusion. PLAN: 1. End-stage renal disease: Patient's regular dialysis days are Sunday, , Sunday. She was dialyzed the last two days in a row. There is no urgent need of hemodialysis today if her repeat potassium comes back within the normal range, however if patient is hyperkalemic on the repeat labs, she will be dialyzed again today. 2. Hyperkalemia: Potassium was done on hemolyzed specimen and repeat BMP has been ordered. If potassium is high, patient will be dialyzed. 3. Acute decompensated diastolic congestive heart failure: She was already dialyzed back to back two days in a row. Further fluid management will be done with dialysis. She is not on any diuretics at this time. 4. Pulmonary embolism: Patient has already been started on a Heparin drip. 5. Coronary artery disease: Continue home dose of aspirin and Atorvastatin. 6. Diabetes mellitus type 2 insulin-dependent with peripheral neuropathy: Continue current dose of insulin. If Basaglar is not available, patient can get Levemir 20 units subcutaneously twice a day. 7. Hypothyroidism: Patient is on Levothyroxine 125 mcg p.o. daily. TSH is still high. Patient is either noncompliant with the medication or the dose needs to be increased. 8.Rt Pleural Effusion: Thoracic surgery has been called for possible drainage if needed. 9.Pericardial Effusion: small pericardial effusion without tamponade. Cont fluid management. No need of drainage. Thank you for involving me in the care of this patient. I am happy to follow the patient along with you tomorrow morning. [facility]
[2020-01-01] MEDS: HumaLOG INSULIN (NovoLOG) PER UNIT SC SCH ×4 (07:30→20:24)
--- NOTE | 2020-01-01 07:31 | CR ---
DATE OF CONSULTATION: 12/31/2019 REASON FOR CONSULTATION: The patient is at the request of the hospitalist service for shortness of breath and pericardial effusion. HISTORY OF PRESENT ILLNESS: The patient is a 49-year-old white female who was hospitalized one month ago with hypotension. The cause of the hypotension was felt to be her hypertensive medications and they were discontinued. Since then she has been at home and she has gotten progressively weaker and more dizzy. She gets more dizzy with standing and sitting up in bed. She is on chronic renal dialysis and she has been dialyzed off her schedule to remove increased fluid. Two weeks ago she started to get short of breath and has progressed to the point where she is now short of breath even sitting and certainly getting up and just going to the bathroom. She states she is continually dizzy and lightheaded and has developed ringing in her ears over the past month since her hypotensive episodes. She cannot lay flat in bed and in fact jumps up in the middle of the night to catch her breath. There has been a slight cough with some clear sputum production. She complains of chest discomfort and chest pain all over which radiates down into her back. It also affects her abdomen. She has been continually constipated for which she is taking Milk of Magnesia. She states that the pain feels like a pressure on her chest but more characteristically describes it as a dull ache all over. It is not confined to the precordium or to either chest. There is no dysphagia and she does not cough with swallowing. There has been no fever, chills, or sweats. Her weight goes up and down with dialysis. I saw her in 2016 where she had a large pericardial effusion which required two pericardiostomy. At that point she was impending tamponade. I also saw her in consult in April of 2019 where she again had a pericardial effusion. I noted at that point in time her TSH was 116 and she was severely hypothyroid. I assigned the cause of her pericardial effusion at that point to hypothyroidism. I did not have to do any intervention at that point in time. PAST MEDICAL HISTORY: End-stage renal disease, hypothyroidism, coronary artery disease status post stenting, gastroesophageal reflux disease, diabetes with neuropathy, grade 1 diastolic dysfunction, anemia of chronic disease, hypothyroidism, legally blind. PAST SURGERIES: Hysterectomy, thigh shunt. MEDICATIONS AT HOME: - Aspirin 81 mg daily - Atorvastatin 20 mg once daily at bedtime - Insulin 20 units twice a day - Synthroid 125 mcg daily - Omeprazole 40 mg twice a day - Sevelamer 1600 mg p.o. three times daily - MiraLax 17 gm twice a day - Milk of Magnesia 30 mL daily - Vitamin D2 50,000 units every week HABITS: Smoked Marlboros two packs per day for 30 years. Does not drink. Denies illicit drug use. TRAVEL HISTORY: She has traveled to [place] in the remote past. In fact it was noted she was in renal failure in [place] and she had to come back here for continuing treatment. 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 ALLERGIES: PENICILLIN. REVIEW OF SYSTEMS: Constitutional: See HPI. Eyes: States she is legally blind but she is able to count fingers. Without diplopia, without amaurosis fugax. Nose without epistaxis. Mouth is edentulous on her upper plate and she has her own teeth on her lower jaw. Respiratory: See HPI. Cardiac: See HPI. She has had a stenting procedure for coronary artery disease. She states she has peripheral edema at home. GI: Without diarrhea but with constipation which is resolving since being placed on stool softeners. Was nauseous today but no vomiting. She has diffuse abdominal pain all over. This has been going on for the last month. No hematemesis. : Is in renal failure. No hematuria or dysuria. She does not have any urine output. Neurologic: She has peripheral neuropathy. She also complains of continued lightheadedness. No prior strokes, however. No paralyses. She complains of paresthesias and numbness in her left hand. Psychiatric: Without pathologic anxieties, depressions, or psychoses. PHYSICAL EXAMINATION: General: Well developed chronically ill white female in mild distress from shortness of breath. Vital signs: Temperature is 97.3 with a heart rate of 70 in a sinus rhythm, respiratory rate of 18 without use of accessory muscles, 97% saturated on room air, blood pressure 87/50. HEENT: Eyes: Pupils equal, round and reactive to light. Extraocular movements intact. Sclerae are anicteric. Nose is without deformity. Mouth shows the mucous membranes to be pink and moist. Lips and commissures are without lesions. She has her own lower teeth, no upper teeth. NECK: Neck is supple. There is no jugular venous distention, no subcutaneous emphysema. Trachea is midline. There is no thyromegaly or lymphadenopathy. LUNGS: Decreased breath sounds at the right base with a dull percussion over the right base. I do not hear wheezes, rhonchi, or rales however on the left side. CARDIAC EXAM: Slightly muffled heart sounds although she is obese. I can feel her PMI in the fifth intercostal space in the midclavicular line. She is without murmurs, clicks, gallops, or rubs. ABDOMEN: Abdomen is tender all over to deep palpation. There is no rebound tenderness, no guarding. Bowel sounds are positive. I cannot appreciate hepatomegaly and there is no CVA tenderness. EXTREMITIES: Trace pretibial edema, no calf tenderness, no differential swelling of the upper extremities. SKIN: Skin is warm and dry and perfused without cyanosis or mottling including that of nailbeds and knees. NEUROLOGIC: CN II-XII intact with gross motor, gross sensation intact. Gait is not tested. PSYCHIATRIC: Awake and alert and oriented times three but with a depressed mood and affect. VASCULAR: Pulses show the absence of dorsalis pedis pulses and the absence of radial pulses. INVESTIGATIONS: Her white count is 9.1 with a hemoglobin and hematocrit of 10.9 and 35.9 respectively. Platelet count is 213. There is no differential on her. Chemistries show normal electrolytes with BUN and creatinine of 37 and 5.05 after dialysis yesterday. Glucose is 96 with a calcium of 9.8 and a phosphorus of 4.1. Her troponin is 0.11 with an albumin of 3.3. Her TSH is 17, much improved from last April when it was 116. Her B-natruretic peptide is 64,331. Potassium earlier this morning was 7.1. That has normalized. Her chest CT done today shows a small pericardial effusion. Its greatest thickness is posteriorly and measures 1.5 cm. She has a moderate to large right pleural effusion with compression of the underlying lung. When compared to her chest CT in April of 2019, the pericardial effusion is smaller. Echocardiogram shows the same 1.5 cm pericardial effusion posteriorly. She has a large right heart. Her left heart has normal systolic function. There is slight deformity of the right septum flattening out partially towards the left ventricle. There is little diastolic collapse of the ventricle. It is estimated that her pulmonary artery pressure is 20. I am not sure if that is really true considering the increased size of her right ventricle. There is tricuspid regurgitation. I do not see any ventricular or atrial diastolic collapse. IMPRESSION: 1. Pericardial effusion improved from April 2019. 2. Pleural effusion, right side worse. 3. Underlying right lower lobe lung compression to a pulmonary embolism which has been called by radiology but which I do not see well in the right lower lobe segmental artery. I actually think that they are seeing an overlying pulmonary vein which is not completely opacified. 4. Diabetes. 5. End-stage renal disease. 6. I suspect orthostatic hypotension and actual intravascular depletion. 7. Hypothyroidism. 8. Chronic constipation. PLAN DISCUSSION: As far as her pericardial effusion is concerned, I am not concerned that she is in tamponade or even impending tamponade. She has a moderately large pleural effusion which might go some way in explaining her shortness of breath. I think that she has right heart dysfunction and failure. As I noted before, I have my doubts about the pulmonary embolism but I certainly could be wrong. She is presently on Heparin now. That small pulmonary embolism if true would not cause her all that much shortness of breath. She has no bronchospasm associated with it. I will ask x-ray to place a pigtail tomorrow after stopping her Heparin four hours prior to her procedure. We will continue to follow her with daily chest x- rays and physical exam evaluations. [facility]
[2020-01-01] MEDS ORDERED: [UNRECOGNIZED DRUG - REMARK] XX SCH (08:00)
[2020-01-01] MEDS: OMEPRAZOLE 20 MG CAP PO SCH ×2 (08:16→20:37)
[2020-01-01] MEDS: ATORVASTATIN 20 MG TAB PO SCH (08:16)
[2020-01-01] MEDS ORDERED: MIDODRINE 5 MG TAB PO SCH (11:00)
[2020-01-01 11:06] LABS: FREE T3 1.1 PG/ML (2.2-4.0); FREE T4 1.29 NG/DL (0.76-1.46)
[2020-01-01] MEDS: HEPARIN DRIP 25,000 UNITS in IV 1 EA IV SCH (12:02)
[2020-01-01 12:10] LABS: PH BODY FLUID 7.558 UNITS (NOT ESTABLISHED); SOURCE, BODY FLUID pH PLEURAL
[2020-01-01 12:37] LABS: APPEARANCE, BODY FLUID CLEAR (CLEAR); PLEURAL FL COLOR PALE YELLOW (COLORLESS); SOURCE, BODY FLUID PLEURAL
[2020-01-01 12:45] LABS: AMYLASE, BODY FLUID 14 U/L (NOT ESTABLISHED); CHOLESTEROL, BODY FLUID < 50 MG/DL (NOT ESTABLISHED); LDH, BODY FLUID 75 U/L (NOT ESTABLISHED); SOURCE, BODY FLUID ALBUMIN PLEURAL; SOURCE, BODY FLUID AMYLASE PLEURAL; SOURCE, BODY FLUID CHOL PLEURAL; SOURCE, BODY FLUID GLUCOSE PLEURAL; SOURCE, BODY FLUID LDH PLEURAL; SOURCE, BODY FLUID TOT PROTEIN PLEURAL; SOURCE, BODY FLUID TRIG PLEURAL; TOTAL PROTEIN, BODY FLUID 2.4 G/DL (NOT ESTABLISHED); TRIGLYCERIDE, BODY FLUID 22 MG/DL (NOT ESTABLISHED)
[2020-01-01] MEDS ORDERED: KETOROLAC 30 MG/ML 1ML VIAL As Ordered ONE (12:55)
[2020-01-01] MEDS ORDERED: BISACODYL 10 MG SUPP PR PRN (13:00)
[2020-01-01] MEDS ORDERED: KETOROLAC 30 MG/ML 1ML VIAL IV ONE (13:00)
[2020-01-01] MEDS ORDERED: NORCO, ANEXSIA 5/325MG TABLET (HYDROcodone/ACETAMINOPHEN) PO PRN (13:00)
[2020-01-01] MEDS ORDERED: LEVALBUTEROL 1.25 MG/0.5 ML CONCENTRATE NEB NEB PRN (13:00)
[2020-01-01] MEDS: MOM 30ML SUSPENSION UDC PO SCH (13:22)
[2020-01-01] MEDS: LEVALBUTEROL 1.25 MG/0.5 ML CONCENTRATE NEB NEB SCH ×2 (15:43→19:40)
[2020-01-01] MEDS ORDERED: ALPRAZolam 0.25 MG TAB PO ONE (16:00)
--- NOTE | 2020-01-01 18:08 | IPNPDOC ---
Subjective Date Seen The patient was seen on 01/01/20. Subjective Chief Complaint/HPI Patient was examined at bedside. She reported no dyspnea while laying still. Reported some dyspnea with exertion. Reported right infraclavicular region chest pressure that she rated 2/10 with alleviating factor being movement without aggravating factor. She denies any fever or chills. She reported some lightheadedness and dizziness, worse with standing up. Patient reported pleuritic chest pain. Patient denies any abdominal pain, diarrhea, chest pain, or palpitation. It was noted that patient's MAP has been running on the soft side General: Reports: Other Symptoms (Generalized weakness); Denies: Chills Constitutional: Denies: Chills, Fever Pulmonary: Reports: Pleuritic Chest Pain, Other Symptoms (exertional dyspnea); Denies: Dyspnea Cardiovascular: Reports: Other Symptoms (right infraclavicular region chest pressure); Denies: Chest Pain, Palpitations Gastrointestinal: Denies: Vomiting, Abdominal Pain, Diarrhea, Constipation Genitourinary: Reports: Other Symptoms (anuria on baseline d/t ESRD) Objective Physical Examination General Exam: Positive: Alert, Cooperative, No Acute Distress Eye Exam: Positive: Conjunctiva & lids normal; Negative: Sclera icteric ENT Exam: Positive: Atraumatic, Mucous membr. moist/pink Neck Exam: Positive: Supple, Other (mild JVD appreciated) Chest Exam: Positive: Normal air movement, Diminished; Negative: Wheezing (b/l, more diminished in b/l bases) Heart Exam: Positive: Rate Normal, Regular Rhythm, Other (distant heart sound); Negative: Murmurs Abdomen Exam: Positive: Normal bowel sounds, Soft, Other (fluid-wave motion noted in abdomen); Negative: Tenderness Extremity Exam: Positive: Edema (trace edema in b/l) Skin Exam: Positive: Nl turgor and temperature Neuro Exam: Positive: Normal Speech, Normal Tone, Other (able to carry normal conversation) Psych Exam: Positive: Mental status NL, Mood NL, Memory Intact; Negative: Anxiety Assessment /Plan Assessment Patient is a 49 yo female with PMH of ESRD, PVD, DM w neuropathy, hypothyroidism, hx of CAD s/p prior PCI being admitted for worsening dyspnea found to have PE, pericardial effusion, ascites, and hyperkalemia and was admitted to ICU planned for dialysis today with pig-tail catheter. 1. Dyspnea likely 2/2 PE, pericardial effusion, and/or pleural effusion, improving. Now only exertional dyspnea. No labored breathing and pt was sat well on 2L NC as of this morning. We will address the initial cause. 2. Right lower lung pulmonary embolism. CTA showed PE in subsegmental artery r ight lower lung posteriorly. Bilateral pleural effusions greater on right and possible consolidation RLL concerning for pneumonia with partial involvement of atelectasis. Pt also has Subpleural nodules left upper lobe and subpleural irregular slightly nodular configured densities of the right upper lobe. Findings could reflect infectious/post-inflammatory densities/parenchymal nodules. Patient's heparin drip was held d/t plan for pigtail placement at 11AM, and will restart after the procedure. Monitor for bleeding.Oxygen therapy with cont pulse ox. Pt's BP was soft this morning with MAP around 59 and one 250ml NS bolus was ordered to be given, hemodialysis planned to be done without fluid r emoval. 3. Pericardial effusion, noted to be improved from April 2019. CTA showed pericardial effusion of 1.7 cm at the maximum diameter. No pulses paradoxus, no kusmal's sign. Pt's BP was soft this morning however d/t pericardial effusion, a gentle amount of fluid bolus was given. Pt's hemodialysis will be done without fluid removal today. The patient is been able to speak in full sentences without signs of acute distress. Dr. Lopez was consulted and noted that patient's pericardial effusion improved from April 2019. 4. Bilateral pleural effusions and anasarca on the CT abdomen which may be 2/2 acute decompensated diastolic congestive heart failure. Pleural effusion also may be 2/2 PE. Pt planned for dialysis today. Patient also planned for pigtail placement today. Cont pulse ox with ox therapy, elevated head of bed. 5. ESRD on maintenance hemodialysis , for 6 years. Pt noted to have prior peritoneal dialysis, currently on hemodialysis The patient's primary rate is 67 KG is as per the new recommendations from nephrology as per the patient. Patient is planned for dialysis today. 6. History of CAD s/p PCI w stent. Cont home med ASA and statin. 7. Hyperkalemia, likely 2/2 ESRD. Pt planned for hemodialysis today. Cont tele monitor 8. Hypothyroidism. Hx of hypothyroidism. Initial TSH=17 upon admission, will order T4 and T3. TSH may be elevated d/t euthyroid sick syndrome but may consider increasing home levothyroxine dose. 9. IDDM w peripheral neuropathy. Cont FSBS ACHS, SSI, hypoglycemia protocol. 10. PVD. Cont home medication ASA & statin. Avoid SCD and TEDS. 11. Cholelithiasis. Cholelithiasis noted on CT abdomen/pelvis. Pt currently denies any abdominal pain. Consider follow up outpatient. 12. Deconditioning. Patient noted to have generalized weakness. Fall precaution. Consider PT Disposition: Pt is a 49 yo female with Hx of IDDM and ESRD on maintenance hemodialysis presented to [facility] d/t about 1 wk of worsening dyspnea found to have RLL PE, pericardial effusion, b/l pleural effusion as well as hyperkalemia today started on heparin drip as well planned for pig-tail catheter placement(thoracic surgery consulted) and hemodialysis(nephrology consulted) today; improved dyspnea and sats well on 2L NC. Plan/VTE VTE Prophylaxis Ordered?: Yes (on heparin drip) VS, I&O, 24H[facility] Signs/I&O Vital Signs Date Time Temp Pulse Resp B/P (MAP) Pulse Ox O2 Delivery O2 Flow Rate FiO2 01/01/20 15:00 97.4 72 20 78/50 01/01/20 14:53 Room Air 01/01/20 12:00 98 01/01/20 08:00 2.0 12/31/19 06:30 95 I&O- Last 24 Hours up to 6 AM 01/01/20 06:00 Intake Total 233 ml Balance 233 ml Laboratory Data 24H LABS Laboratory Tests 2 12/31/19 17:19: Bedside Glucose (Misc Panel) 68L 12/31/19 19:19: Bedside Glucose (Misc Panel) 107H 12/31/19 20:02: Activated Partial Thromboplast Time 221.5*H, Troponin I 0.09 12/31/19 21:27: Bedside Glucose (Misc Panel) 163H 01/01/20 04:00: Activated Partial Thromboplast Time 75.6H 01/01/20 05:48: Nucleated Red Blood Cells % (auto) 0.3H, Anion Gap 8, Glomerular Filtration Rate 8.0L, Calcium Level 9.1, Total Bilirubin 1.3H, Aspartate Amino Transf (AST/SGOT) 30, Alanine Aminotransferase (ALT/SGPT) 34, Alkaline Phosphatase 167H, Total Protein 7.2, Albumin 2.8L, Albumin/Globulin Ratio 0.6L, Free Thyroxine 1.29, Free Triiodothyronine 1.1L 01/01/20 08:13: Bedside Glucose (Misc Panel) 122H 01/01/20 11:15: Body Fluid pH 7.558, Body Fluid pH Source PLEURAL, Body Fluid WBC (Auto) 120H, Body Fluid RBC (Auto) < 2, Body Fluid Mononuclear Cells % Auto 90.8H, Fluid Polymorphonuclear Cell % Auto 9.2H, Body Fluid Glucose Source PLEURAL, Body Fluid Glucose 119, Body Fluid Protein Source PLEURAL, Body Fluid Total Protein 2.4, Body Fluid Albumin Source PLEURAL, Body Fluid Albumin 1.1, Body Fluid LDH Source PLEURAL, Body Fluid Lactate Dehydrogenase 75, Body Fluid Amylase Source PLEURAL, Body Fluid Amylase 14, Body Fluid Cholesterol < 50, Body Fluid Cholesterol Source PLEURAL, Body Fluid Triglyceride Source PLEURAL, Body Fluid Triglycerides 22, Pleural Fluid Source PLEURAL, Pleural Fluid Color PALE YELLOW, Pleural Fluid Appearance CLEAR 01/01/20 12:00: Bedside Glucose (Misc Panel) 127H CBC/BMP Laboratory Tests 01/01/20 05:48 Microbiology Microbiology 01/01/20 Acid Fast Stain, Received Pending 01/01/20 Mycobacterial Culture, Received Pending 01/01/20 Fungal Smear, Received Pending 01/01/20 Fungal Culture, Received Pending 01/01/20 Gram Stain, Received Pending 01/01/20 Anaerobic Culture, Received Pending 01/01/20 Body Fluid Culture, Received Pending 01/01/20 Stool Occult Blood (FERNANDO) - Final, Complete GME ATTESTATION GME ATTESTATION My faculty preceptor for this patient encounter was physically present during the encounter and was fully available. All aspects of the patient interview, examination, medical decision making process, and medical care plan development were reviewed and approved by the faculty preceptor. The faculty preceptor is aware and concurs with the plan as stated in the body of this note and will attest to such by his/her cosignature. ATTENDING NOTE Patient was seen and examined by me personally with the residents and students. Agree with the above assessment and plan NATY ALMANZA DO Jan 01, 2020 17:16 JEMIMA CHAN MD Jan 02, 2020 14:36
[2020-01-01] MEDS: KETOROLAC 30 MG/ML 1ML VIAL IV SCH (19:54)
[2020-01-01] MEDS: DOCUSATE SODIUM 100 MG CAP PO SCH (20:37)
[2020-01-01] MEDS: PERCOCET 5MG/325MG TAB PO PRN (22:55)
[2020-01-02] VITALS (7 sets, daily range): BP systolic 74–85; BP diastolic 48–56
[2020-01-02] MEDS: KETOROLAC 30 MG/ML 1ML VIAL IV SCH ×2 (01:03→06:04)
[2020-01-02] MEDS: LEVALBUTEROL 1.25 MG/0.5 ML CONCENTRATE NEB NEB SCH ×4 (01:41→20:37)
[2020-01-02 04:24] LABS: HEMATOCRIT 33.3 % (36.0-47.0); HEMOGLOBIN 9.8 g/dl (12.0-15.5); MEAN CORPUSCULAR HEMOGLOBIN 31.2 pg (27.0-33.0); MEAN CORPUSCULAR HGB CONC 29.4 g/dl (32.0-36.5); MEAN CORPUSCULAR VOLUME 106.1 fl (80.0-96.0); PLATELET COUNT, AUTOMATED 123 10^3/uL (150-450); RED BLOOD COUNT 3.14 10^6/uL (4.00-5.40); WHITE BLOOD COUNT 7.4 10^3/uL (4.0-10.0)
[2020-01-02 04:41] LABS: HEMOGLOBIN A1c 7.6 %
[2020-01-02 04:45] LABS: BILIRUBIN,TOTAL 1.9 MG/DL (0.2-1.0); CALCIUM LEVEL 9.1 MG/DL (8.5-10.1); CREATININE FOR GFR 4.43 MG/DL (0.55-1.30); GLOMERULAR FILTRATION RATE 11.3 (>58); POTASSIUM SERUM 4.6 MEQ/L (3.5-5.1); TOTAL PROTEIN 7.2 GM/DL (6.4-8.2)
[2020-01-02] MEDS: LEVOTHYROXINE 150MCG TABLET (0.15MG) PO SCH (06:04)
[2020-01-02 07:51] LABS: THYROID STIMULATING HORMONE 4.3 uIU/ML (0.358-3.740)
[2020-01-02] MEDS: ASPIRIN 81 MG ENTERIC TAB PO SCH (08:39)
[2020-01-02] MEDS: OMEPRAZOLE 20 MG CAP PO SCH ×2 (08:39→20:51)
[2020-01-02] MEDS: MOM 30ML SUSPENSION UDC PO SCH (08:39)
[2020-01-02] MEDS: DOCUSATE SODIUM 100 MG CAP PO SCH ×2 (08:39→20:51)
[2020-01-02] MEDS: HumaLOG INSULIN (NovoLOG) PER UNIT SC SCH ×4 (08:39→20:56)
[2020-01-02] MEDS: ATORVASTATIN 20 MG TAB PO SCH (08:40)
[2020-01-02] MEDS ORDERED: PANTOPRAZOLE 40MG TAB (PROTONIX) PO SCH (09:00)
[2020-01-02] MEDS ORDERED: MIDODRINE 5 MG TAB PO SCH (09:30)
[2020-01-02] MEDS: MIDODRINE 5 MG TAB PO SCH ×2 (11:29→17:09)
--- NOTE | 2020-01-02 14:45 | IPNPDOC ---
Text Note Date of Service The patient was seen on 01/02/20. NOTE Patient was seen and examined this morning. . He states that after the chest tube. Her shortness of breath has significantly improved. No other overnight events PHYSICAL EXAMINATION: GENERAL APPEARANCE: anxious / well developed HEENT: MMM &P / EOMI, no JVD CARDIOVASCULAR: S1, S2 heard. S3 gallop heard as well. No other murmurs appreciated. No pericardial rub. LUNGS: Lungs are clear auscultation bilaterally with a distant breath sounds at the left lower lung field. ABDOMEN: soft & NT MUSCULOSKELETAL: KEVIN x4 extremities, 1+ pedal edema. NEUROLOGICAL: CN 2-12 intact / strength 5/5 LABORATORY DATA: Reviewed IMAGING: Reviewed Assessment and plan is a 49 yr old w a hx of ESRD, PVD, DM w neuropathy, CAD status post PCI in the remote past and hypothyroidism is currently being admitted for progressive shortness of breath, likely secondary to fluid overload, pulmonary embolism and pericardial effusion , pleural effusion and was initially admitted to ICU. Pericardial implant or any chamber collapse was ruled out by a stat echo. CT surgery saw the patient and attributed this all to large pleural effusion on the right side and decided to do thoracentesis with the pigtail catheter placement. The patient has had a productive catheter placement and has gained more than 2 L in the last 24 hours, and the fluid analysis has been transudative. Nephrology also saw the patient and have dialyzed. The patient once since admission. The patient continues to have low blood pressure, which her new baseline. She is asymptomatic with the systolic blood pressure of 80s if she is currently at. The patient is significantly improved and currently is on only 2 L of nasal cannula being followed up by nephrology for maintenance dialysis. The patient also is being maintained by CT surgery for chest tube care. CTA which was done in the ER showed a subsegmental pulmonary embolism and the patient is on anticoagulation with IV heparin for that. Transitional have to be made to oral anticoagulation and possibly Coumadin once CT surgery is okay with that. Patient continues to be nicer care and possibly can be stepped down from ICU in the next 24-48 hours. 1. Progressive shortness of breath: Likely factorial, most likely secondary to fluid overload, pulmonary embolism, pericardial effusion, pleural effusion. We will address the initial cause. 2. Pulmonary embolism. CTA done which shows, Pulmonary embolus subsegmental artery right lower lung posteriorly. Bilateral pleural effusions greater on the right and possible Consolidation right lower lobe concerning for pneumonia with partial involvement of atelectasis. . She also has Subpleural nodules left upper lobe and subpleural irregular slightly nodular configured densities of the right upper lobe. Findings could reflect infectious or postinflammatory densities versus parenchymal nodules. In any case. Currently, the patient is on heparin drip. Pulmonary embolism protocol. D the patient will need to be transitioned to oral Coumadin and swollen. She is ESRD and the new oral anti-quadrants are not option for her. 3. Pericardial effusion. The patient has a pericardial effusion of 1.7 cm at the maximum diameter. No pulses paradoxus, no kousmell sign at presentation. 2-D echo did not show any cardiac temponade and as per my discussion with Dr. Lopez effusion is actually less than which was found on her last echo 2 months back. Continue dialyzing to take care of effusion as well. 4. Large pleural effusion. The patient has bilateral pleural effusions as well as anasarca on the CT abdomen.. Currently, the pigtail catheter is in place and the patient has been more than 2 L. It is positive and now needs of any antibodies. Likely etiology is ESRD related. 5. ESRD on hemodialysis for the last 6 years. Initially had paratonia dialysis, but lately has been on hemodialysis. The patient's dry weight is 67 KG is as per the new recommendations from nephrology as per the patient. Dialysis care as per nephrology 6 CAD s/p PCI w stent isosorbide, ASA, statin 7. DM w peripheral neuropathy : FSBS, SSI, hypoglycemia protocol, A1C, levemir 5 units BID 8. PVD : ASA & statin 9. Hypothyroidism: Repeat TSH is 4.7. T3, T4 ordered to decide with the rehabilitation to go up on the levothyroxine dose. Continue home medications are contraindicated. Disposition unknown at this time VS,Regina, I+O VS, Regina, I+O Laboratory Tests 01/02/20 04:05 Vital Signs Date Time Temp Pulse Resp B/P (MAP) Pulse Ox O2 Delivery O2 Flow Rate FiO2 01/02/20 12:00 97.2 75 20 85/53 (64) 98 Room Air 01/02/20 05:00 2.0 12/31/19 06:30 95 I&O- Last 24 Hours up to 6 AM 01/02/20 06:00 Intake Total 1096.8 ml Output Total 2250 ml Balance -1153.2 ml JEMIMA CHAN MD Jan 02, 2020 14:45
--- NOTE | 2020-01-02 16:34 | REPVR ---
PROCEDURE INFORMATION: Exam: XR Chest, 2 Views Exam date and time: 01/02/2020 8:01 AM Age: 49 years old Clinical indication: Follow-up pleural effusion TECHNIQUE: Imaging protocol: XR of the chest Views: 2 views. COMPARISON: IA Chest, 1 view 01/01/2020 11:31 AM FINDINGS: Tubes, catheters and devices: ECG leads/contacts overlie and partially obscure the anatomy. The pigtail right pleural drainage catheter remains present at the right posterior lung base. Lungs: Ill-defined moderate bilateral lower lobe airspace opacities are not significantly changed. Pleural space: The right posterior costophrenic angle is blunted consistent with a minimal right pleural effusion. Stable small left pleural effusion. Decreased right pneumothorax. A minimal right pneumothorax is present. No evident left pneumothorax. Heart/Mediastinum: The central pulmonary arteries remain enlarged. The cardiac silhouette is stably mildly diffusely enlarged. Bones/joints: Unremarkable. IMPRESSION: 1. Indwelling right pleural drainage catheter. 2. Decreased right pneumothorax. A minimal right pneumothorax is present. 3. Minimal right pleural effusion. 4. Stable small left pleural effusion. 5. Stable bilateral lower lobe airspace opacities. Electronically signed by: Jh Fontana On 01/02/2020 16:34:22 PM
--- NOTE | 2020-01-02 17:03 | REPVR ---
PROCEDURE INFORMATION: Exam: MR Head Without Contrast Exam date and time: 01/02/2020 4:04 PM Age: 49 years old Clinical indication: Weakness, extremity and other: Blood pressure, pleurisy; Bilateral; Additional info: Acute tinitus, ? mets, ? neuroma ? CVA, ? hypoxic injury TECHNIQUE: Imaging protocol: MR of the head without contrast. COMPARISON: MRI-Brain without Contrast 12/15/2019 9:06 AM FINDINGS: Brain: Chronic punctate scattered foci of susceptibility artifact throughout the supratentorial and infratentorial brain, most likely reflecting small calcifications versus areas of hemosiderin deposition from chronic microhemorrhage. No evidence of acute intracranial hemorrhage. Chronic left john radiata lacunar infarct. Few scattered nonspecific T2/FLAIR hyperintensities of the periventricular and deep subcortical white matter, most likely secondary to chronic small vessel ischemic change. No evidence of mass effect or midline shift. No restricted diffusion to suggest acute infarct. Ventricles: No ventriculomegaly. Bones/joints: Unremarkable. Sinuses: Unremarkable. Mastoid air cells: No mastoid effusion. Orbits: Unremarkable. Soft tissues: Unremarkable. IMPRESSION: 1. No acute intracranial pathology. 2. Chronic findings, as above. Electronically signed by: Earl Rosales On 01/02/2020 17:03:38 PM
[2020-01-02] MEDS ORDERED: diphenhydrAMINE 25MG CAP PO SCH (18:00)
[2020-01-02] MEDS: PERCOCET 5MG/325MG TAB PO PRN (18:20)
[2020-01-02] MEDS ORDERED: diphenhydrAMINE 50MG/ML VIAL (J1200) IM ONE (20:15)
[2020-01-02] MEDS ORDERED: RAMELTEON 8 MG TAB (ROZEREM) PO PRN ×2 (21:15→21:30)
[2020-01-03] VITALS (19 sets, daily range): BP systolic 66–113; BP diastolic 38–63
[2020-01-03] MEDS ORDERED: MIDODRINE 5 MG TAB PO ONE (00:45)
[2020-01-03] MEDS: LEVALBUTEROL 1.25 MG/0.5 ML CONCENTRATE NEB NEB SCH ×4 (01:06→19:56)
[2020-01-03] MEDS: PERCOCET 5MG/325MG TAB PO PRN (02:17)
[2020-01-03 04:51] LABS: HEMATOCRIT 34.9 % (36.0-47.0); HEMOGLOBIN 10.2 g/dl (12.0-15.5); MEAN CORPUSCULAR HEMOGLOBIN 31.7 pg (27.0-33.0); MEAN CORPUSCULAR HGB CONC 29.2 g/dl (32.0-36.5); MEAN CORPUSCULAR VOLUME 108.4 fl (80.0-96.0); PLATELET COUNT, AUTOMATED 122 10^3/uL (150-450); RED BLOOD COUNT 3.22 10^6/uL (4.00-5.40); WHITE BLOOD COUNT 9.8 10^3/uL (4.0-10.0)
[2020-01-03 05:17] LABS: ALBUMIN 3.1 GM/DL (3.2-5.2); BILIRUBIN,TOTAL 1.9 MG/DL (0.2-1.0); CREATININE FOR GFR 5.68 MG/DL (0.55-1.30); GLOMERULAR FILTRATION RATE 8.5 (>58); TOTAL PROTEIN 7.2 GM/DL (6.4-8.2)
[2020-01-03] MEDS: LEVOTHYROXINE 150MCG TABLET (0.15MG) PO SCH (05:44)
[2020-01-03] MEDS: HEPARIN DRIP 25,000 UNITS in IV 1 EA IV SCH (07:47)
[2020-01-03] MEDS: HumaLOG INSULIN (NovoLOG) PER UNIT SC SCH ×4 (07:47→21:00)
[2020-01-03] MEDS: MIDODRINE 5 MG TAB PO SCH ×3 (07:48→17:15)
[2020-01-03] MEDS: ASPIRIN 81 MG ENTERIC TAB PO SCH (07:48)
[2020-01-03] MEDS: ATORVASTATIN 20 MG TAB PO SCH (07:48)
[2020-01-03] MEDS: OMEPRAZOLE 20 MG CAP PO SCH ×2 (07:48→21:27)
[2020-01-03] MEDS: DOCUSATE SODIUM 100 MG CAP PO SCH ×2 (08:05→21:27)
[2020-01-03] MEDS: MOM 30ML SUSPENSION UDC PO SCH (08:05)
--- NOTE | 2020-01-03 11:08 | ECGEPIP ---
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
[2020-01-03] MEDS ORDERED: predniSONE 20 MG TAB PO ONE (13:00)
--- NOTE | 2020-01-03 15:00 | IPNPDOC ---
Text Note Date of Service The patient was seen on 01/03/20. NOTE S: This is a 49-year-old female with a history of ESRD on HD, PVD, IDDM with neuropathy, hypothyroidism, history of CAD s/p prior PCI, hx of pericardiocentesis (2016), who was admitted to the hospital for progressive dyspnea with right lower lobe segmental pulmonary embolism. The patient is unable to communicate today because of loss of hearing and tinnitus. O: Mrs. Trivedi today was sitting in a chair looking anxious, and worried because of her recent acute onset of tinnitus. She has not been able to hear anything from both her ears due to severe tinnitus. The nurse and I communicated with her using written messages and questions. She reports dizziness but denies any headaches , ear pain, shortness of breath, palpitations or chest pain. PHYSICAL EXAMINATION: GENERAL APPEARANCE: anxious / well developed HEENT: MMM &P / EOMI, no JVD CARDIOVASCULAR: S1, S2 heard. S3 gallop heard as well. No other murmurs appreciated. No pericardial rub. LUNGS: Lungs are clear auscultation bilaterally with a distant breath sounds at the left lower lung field. ABDOMEN: soft & NT MUSCULOSKELETAL: KEVIN x4 extremities, 1+ pedal edema. NEUROLOGICAL: CN 2-12 intact / strength 5/5 Assessment and Plan: Patient is a 49 yo female with PMH of ESRD, PVD, DM w neuropathy, hypothyroidism, hx of CAD s/p prior PCI being admitted for worsening dyspnea found to have PE, pericardial effusion, ascites, and hyperkalemia and was admitted to ICU planned for dialysis today. 1. Dyspnea likely 2/2 PE, pericardial effusion, and/or pleural effusion, improving. Now only exertional dyspnea. No labored breathing and pt was sat well on room air, as of this morning. We will address the initial cause. 2. Right lower lung pulmonary embolism. CTA showed PE in subsegmental artery r ight lower lung posteriorly. Bilateral pleural effusions greater on right and possible consolidation RLL concerning for pneumonia with partial involvement of atelectasis. Pt also has Subpleural nodules left upper lobe and subpleural irregular slightly nodular configured densities of the right upper lobe. Findings could reflect infectious/post-inflammatory densities/parenchymal nodules. Patient's heparin drip was restarted. Oxygen therapy with cont pulse ox. Pt's BP was soft this morning with MAP around 59 and 1 dose of midodrine was ordered to be given, hemodialysis planned to be done today. Patient had an episode of desaturation following opioid and Benadryl dose. Currently stable desaturating 94% on room air 3. Pericardial effusion, noted to be improved from April 2019. CTA showed per icardial effusion of 1.7 cm at the maximum diameter. No pulses paradoxus, no kusmal's sign. The patient is been able to speak in full sentences without signs of acute distress. 4. Bilateral pleural effusions and anasarca on the CT abdomen which may be 2/2 acute decompensated diastolic congestive heart failure. Pleural effusion also may be 2/2 PE. Pt planned for dialysis today. Patient also planned for pigtail placement today. Cont pulse ox with ox therapy, elevated head of bed. 5. ESRD on maintenance hemodialysis for 6 years. Pt noted to have prior peritoneal dialysis, currently on hemodialysis The patient's primary rate is 67 KG is as per the new recommendations from nephrology as per the patient. Patient is planned for dialysis today. 6. History of CAD s/p PCI w stent. Cont home med ASA and statin. 7. Hyperkalemia, resolved 8. Hypothyroidism. Hx of hypothyroidism. Initial TSH=17 upon admission, will order T4 and T3. TSH may be elevated d/t euthyroid sick syndrome but may consider increasing home levothyroxine dose. 9. IDDM w peripheral neuropathy. Cont FSBS ACHS, SSI, hypoglycemia protocol. 10. PVD. Cont home medication ASA & statin. Avoid SCD and TEDS. 11. Cholelithiasis. Cholelithiasis noted on CT abdomen/pelvis. Pt currently denies any abdominal pain. Consider follow up outpatient. 12. Deconditioning. Patient noted to have generalized weakness. Fall precaution. Consider PT 13. New onset bilateral tinnitus: Patient's brain MRI was ordered which showed no acute intracranial changes. Chronic left john radiata lacunar infarct. Scattered hyperintense intensities of the periventricular and deep subcortical white matter. Patient's ears checked with otoscope tympanic membrane intact pearly garcia. Patient is not on any ototoxic medication and further avoid any ototoxic medication. Consult ENT: Dr. Orlando started the patient on 60 mg oral prednisone once. Will continue to follow-up patient's status. Disposition: Pt is a 49 yo female with Hx of IDDM and ESRD on maintenance hemodialysis presented to [facility] d/t about 1 wk of worsening dyspnea found to have RLL PE, pericardial effusion, b/l pleural effusion as well as hyperkalemia today started on heparin drip . (thoracic surgery consulted) and hemodialysis(nephrology consulted) improved dyspnea and sats well on room air. With new onset tinnitus bilaterally ENT consulted.. VS,Fishbone, I+O VS, Fishbone, I+O Laboratory Tests 01/03/20 04:27 Vital Signs Date Time Temp Pulse Resp B/P (MAP) Pulse Ox O2 Delivery O2 Flow Rate FiO2 01/03/20 09:30 100 Nasal Cannula 2.0 01/03/20 09:25 11 01/03/20 08:00 97.8 81 91/55 (67) 12/31/19 06:30 95 I&O- Last 24 Hours up to 6 AM 01/03/20 06:00 Intake Total 614.9 ml Output Total 355 ml Balance 259.9 ml GME ATTESTATION GME ATTESTATION My faculty preceptor for this patient encounter was physically present during the encounter and was fully available. All aspects of the patient interview, examination, medical decision making process, and medical care plan development were reviewed and approved by the faculty preceptor. The faculty preceptor is aware and concurs with the plan as stated in the body of this note and will attest to such by his/her cosignature. ATTENDING NOTE Patient seen and examined independently. Agree with resident's note. Shira Main MD Jan 03, 2020 12:07 BRITTNEY ALCARAZ MD Jan 27, 2020 14:25
[2020-01-04 00:13] VITALS: BP 99/55
[2020-01-04] MEDS: LEVALBUTEROL 1.25 MG/0.5 ML CONCENTRATE NEB NEB SCH ×4 (01:33→19:23)
[2020-01-04 04:30] LABS: HEMATOCRIT 35.4 % (36.0-47.0); HEMOGLOBIN 10.9 g/dl (12.0-15.5); MEAN CORPUSCULAR HEMOGLOBIN 32.5 pg (27.0-33.0); MEAN CORPUSCULAR HGB CONC 30.8 g/dl (32.0-36.5); MEAN CORPUSCULAR VOLUME 105.7 fl (80.0-96.0); PLATELET COUNT, AUTOMATED 117 10^3/uL (150-450); RED BLOOD COUNT 3.35 10^6/uL (4.00-5.40); WHITE BLOOD COUNT 6.9 10^3/uL (4.0-10.0)
[2020-01-04 04:55] LABS: ALBUMIN 3.1 GM/DL (3.2-5.2); BILIRUBIN,TOTAL 1.7 MG/DL (0.2-1.0); CALCIUM LEVEL 9.2 MG/DL (8.5-10.1); CREATININE FOR GFR 4.16 MG/DL (0.55-1.30); GLOMERULAR FILTRATION RATE 12.2 (>58); POTASSIUM SERUM 5.1 MEQ/L (3.5-5.1); TOTAL PROTEIN 7.3 GM/DL (6.4-8.2)
[2020-01-04] MEDS: HEPARIN DRIP 25,000 UNITS in IV 1 EA IV SCH ×2 (05:15→22:55)
[2020-01-04] MEDS: LEVOTHYROXINE 150MCG TABLET (0.15MG) PO SCH (05:29)
[2020-01-04 08:00] VITALS: BP 104/62
[2020-01-04] MEDS: MIDODRINE 5 MG TAB PO SCH ×3 (08:28→16:47)
[2020-01-04] MEDS: DOCUSATE SODIUM 100 MG CAP PO SCH ×2 (08:28→20:50)
[2020-01-04] MEDS: ATORVASTATIN 20 MG TAB PO SCH (08:28)
[2020-01-04] MEDS: OMEPRAZOLE 20 MG CAP PO SCH ×2 (08:28→20:50)
[2020-01-04] MEDS: ASPIRIN 81 MG ENTERIC TAB PO SCH (08:28)
[2020-01-04] MEDS: HumaLOG INSULIN (NovoLOG) PER UNIT SC SCH ×4 (08:29→20:51)
--- NOTE | 2020-01-04 11:25 | IPNPDOC ---
Text Note Date of Service The patient was seen on 01/04/20. NOTE S: Patient seen and examined at bedside. No acute overnight events reported. Her hearing has improved. No new medical complaints this morning. O: General: NAD, sitting comfortably in chair eating breakfast HEENT: NC/AT, EOMI Lungs: CTA B/L, chest tube in place Heart: +S1S2, RRR Abd: soft, NT, +BS Ext: trace edema Assessment and Plan: Patient is a 49 yo female with PMH of ESRD, PVD, DM w neuropathy, hypothyroidism, hx of CAD s/p prior PCI being admitted for worsening dyspnea found to have PE, pericardial effusion, ascites, and hyperkalemia and was admitted to ICU planned for dialysis today. #Dyspnea - multifactorial - likely 2/2 PE, pericardial effusion, and/or pleural effusion, improving. Now only exertional dyspnea. No labored breathing and pt was sat well on room air, as of this morning #RLL PE - start coumadin - d/c heparin when therapeutic #transaminitis - continue to trend LFT - review medications - states she was told she has liver cirrhosis about 5 years ago - denies alcohol use - states she followed up with GI Dr Cordero around 5 years ago, but no f/u since then - liver US for further eval #hypotension - much improved with midodrine #Pericardial effusion - noted to be improved from April 2019 - stable #Bilateral pleural effusions - chest tube in place - saturating well with 2L supplemental oxygen - baseline is room air - some fluid management with dialysis T/R/S # ESRD/HD-T/R/S - does not make urine # History of CAD s/p PCI w stent. Cont home med ASA and statin. #Hyperkalemia, resolved # Hypothyroidism. Hx of hypothyroidism. Initial TSH=17 upon admission, will order T4 and T3. TSH may be elevated d/t euthyroid sick syndrome but may consider increasing home levothyroxine dose. 9. IDDM w peripheral neuropathy. Cont FSBS ACHS, SSI, hypoglycemia protocol. 10. PVD. Cont home medication ASA & statin. Avoid SCD and TEDS. 11. Cholelithiasis. Cholelithiasis noted on CT abdomen/pelvis. Pt currently denies any abdominal pain. Consider follow up outpatient. 12. Deconditioning. Patient noted to have generalized weakness. Fall precaution. Consider PT #New onset bilateral tinnitus: - MRI with no acute findings - d/w ENT - assistance appreciated - prednisone 60 mg one time dosage - appears to have improved - Consult ENT: Dr. Orlando started the patient on 60 mg oral prednisone once. Disposition: Pt is a 49 yo female with Hx of IDDM and ESRD on maintenance hemodialysis presented to [facility] d/t about 1 wk of worsening dyspnea found to have RLL PE, pericardial effusion, b/l pleural effusion as well as hyperkalemia today started on heparin drip . (thoracic surgery consulted) and hemodialysis(nephrology consulted) improved dyspnea and sats well on room air. With new onset tinnitus bilaterally ENT consulted. - starting coumadin today, bridging with heparin; transfer to PCU today VS,[place], I+O VS, [place], I+O Laboratory Tests 01/04/20 04:00 Vital Signs Date Time Temp Pulse Resp B/P (MAP) Pulse Ox O2 Delivery O2 Flow Rate FiO2 01/04/20 08:00 2.0 01/04/20 08:00 98.6 79 104/62 (76) 92 Nasal Cannula 01/04/20 00:13 15 12/31/19 06:30 95 I&O- Last 24 Hours up to 6 AM 01/04/20 06:00 Intake Total 1210 ml Output Total 805 ml Balance 405 ml BRITTNEY ALCARAZ MD Jan 04, 2020 11:25
[2020-01-04 12:17] VITALS: BP 100/55
[2020-01-04] MEDS: predniSONE 20 MG TAB PO SCH (12:20)
[2020-01-04] MEDS: ACETAMINOPHEN TAB 650MG DOSE (2X325MG) PO PRN ×2 (16:48→23:24)
[2020-01-04] MEDS: WARFARIN SOD 5MG TAB PO SCH (16:49)
[2020-01-04 16:53] VITALS: BP 102/52
[2020-01-04 19:49] VITALS: BP 99/59
[2020-01-04 20:00] VITALS: BP 99/59
[2020-01-05] VITALS: BP 108/59
[2020-01-05] MEDS: LEVALBUTEROL 1.25 MG/0.5 ML CONCENTRATE NEB NEB SCH ×4 (02:00→19:30)
[2020-01-05 04:00] VITALS: BP 108/65
[2020-01-05] MEDS: LEVOTHYROXINE 150MCG TABLET (0.15MG) PO SCH (06:00)
[2020-01-05 06:05] LABS: HEMATOCRIT 36.8 % (36.0-47.0); HEMOGLOBIN 11.3 g/dl (12.0-15.5); MEAN CORPUSCULAR HEMOGLOBIN 32.3 pg (27.0-33.0); MEAN CORPUSCULAR HGB CONC 30.7 g/dl (32.0-36.5); MEAN CORPUSCULAR VOLUME 105.1 fl (80.0-96.0); PLATELET COUNT, AUTOMATED 128 10^3/uL (150-450)
[2020-01-05 06:20] LABS: INR 1.32; PROTHROMBIN TIME 16.7 SECONDS (12.5-14.3)
[2020-01-05 06:22] LABS: PARTIAL THROMBOPLASTIN TIME 85.9 SECONDS (24.2-38.5)
[2020-01-05] MEDS: HEPARIN DRIP 25,000 UNITS in IV 1 EA IV SCH (06:25)
--- NOTE | 2020-01-05 06:59 | ECHO ---
DATE OF PROCEDURE: 12/31/2019 Age: 49 Gender: Female REFERRING PHYSICIAN: PATIENT LOCATION: ED. REASON FOR STUDY: Pericardial effusion. 2D MEASUREMENTS: IVS 1.6 cm LV 3.2 cm LVPW 1.3 cm LA 4.2 cm Aorta 2.9 cm IVC 2.3 cm DOPPLER MEASUREMENT Peak velocity across the aortic valve 0.9 mm/s Peak velocity across the LVOT 0.7 mm/s Mitral E 0.97 Mitral A 0.55 with a ratio of 1.8 Maximum tricuspid valve velocity 2.5 2D COMMENTS: 1. Normal left ventricular size with mildly increased left ventricular wall thickness. Left ventricular systolic function is normal, estimated at 65% to 70%. 2. Mildly enlarged left atrium. The right atrium in limited views appears to be mildly enlarged. Normal right ventricle. 3. The atrial septum appears to be normal without evidence of defect or shunt. 4. Normal aortic root. 5. Findings are consistent with right pleural effusion. Pericardial effusion was noted. Moderate and noted mainly posteriorly. There was no evidence of cardiac tamponade. 6. Mildly calcified aortic valve with normal leaflet excursion. Mildly calcified mitral annulus with normal anterior mitral valve leaflet motion. Normal tricuspid valve and pulmonary valve. The proximal pulmonary artery branches also appear to be normal. 7. The inferior vena cava was mildly enlarged. Central venous pressure mildly elevated. 8. Doppler detects trace mitral regurgitation, moderate tricuspid regurgitation, and [id number] pulmonic regurgitation. The calculated pulmonary artery systolic pressure varies between 30 to 40 mmHg. Assessment of the left ventricular diastolic function appears to be normal. IMPRESSION: 1. Normal global left ventricular systolic function with mild concentric left ventricular hypertrophy and a hyperdynamic left ventricle. Assessment of the left ventricular diastolic function also appeared to be normal. 2. Mildly dilated left atrium with mitral leaflet calcification and trace mitral regurgitation. 3. Aortic valve sclerosis without stenosis or aortic regurgitation. 4. Moderate tricuspid regurgitation with mild pulmonary artery hypertension. The right atrium appeared to be mildly enlarged in limited views. 5. [id number] pulmonic regurgitation. 6. Right pleural effusion was noted. 7. Pericardial effusion was noted, moderate posteriorly and small anteriorly. There was no evidence of cardiac tamponade. 8. This was compared with most recent echocardiogram on 12/15/2019 and at that time, pulmonary artery systolic pressure was higher. Otherwise, no remarkable changes. MTDD
[2020-01-05 07:00] LABS: ALBUMIN 3.1 GM/DL (3.2-5.2); BILIRUBIN,TOTAL 1.3 MG/DL (0.2-1.0); CALCIUM LEVEL 9.1 MG/DL (8.5-10.1); CREATININE FOR GFR 5.47 MG/DL (0.55-1.30); FREE THYROXINE INDEX 2.9 % (1.3-4.8); GLOMERULAR FILTRATION RATE 8.9 (>58); POTASSIUM SERUM 5.9 MEQ/L (3.5-5.1); THYROID STIMULATING HORMONE 1.91 uIU/ML (0.358-3.740); THYROXINE (T4) 7.4 UG/DL (4.5-12.0); TOTAL PROTEIN 7.5 GM/DL (6.4-8.2)
[2020-01-05] MEDS: ATORVASTATIN 20 MG TAB PO SCH (07:30)
[2020-01-05] MEDS: HumaLOG INSULIN (NovoLOG) PER UNIT SC SCH ×4 (07:30→20:26)
[2020-01-05] MEDS: predniSONE 20 MG TAB PO SCH (07:30)
[2020-01-05] MEDS: MIDODRINE 5 MG TAB PO SCH ×3 (07:31→17:16)
[2020-01-05] MEDS: ASPIRIN 81 MG ENTERIC TAB PO SCH (07:31)
[2020-01-05] MEDS: OMEPRAZOLE 20 MG CAP PO SCH ×2 (07:31→20:48)
[2020-01-05] MEDS: DOCUSATE SODIUM 100 MG CAP PO SCH ×2 (07:31→20:26)
[2020-01-05 08:00] VITALS: BP 98/58
--- NOTE | 2020-01-05 09:09 | IPN ---
DATE: 01/01/2020 Ms. Trivedi has just gotten back from x-ray where a pigtail catheter was placed. By reports, they have removed over 1000 mL. She has put another 50 mL out since returning from x-ray. She is in a considerable amount of pain today after the pigtail insertion. This is over and above the chronic pain that she has in her abdomen and back. It hurts for her to take a deep breath. Therefore, she cannot really tell me if she is actually breathing better. Her vital signs show a maximum temperature of 97.7 with a heart rate that ranges between 64-72 in a sinus rhythm with a respiratory rate of 17-19 without the use of accessory muscles, who is 94%-100% saturated on 2 liters nasal cannula and whose blood pressure is ranging between 79/51 to 107/64. PHYSICAL EXAMINATION: Her right lung shows coarse rhonchi which do not clear with coughing during inspiration and expiration. Left side is relatively clear with some scattered rhonchi. Percussion notes are now full to the diaphragm. Cardiac exam is without murmurs, clicks, gallops, or rubs. No petechiae. I do not hear a pericardial friction rub. I cannot feel her point of maximal impulse (PMI). S1 and S2 are normal. Abdomen is soft but diffusely tender all over without guarding or rigidity. She is slightly distended and tympanitic. There is no costovertebral angle (CVA) tenderness. Extremities show trace pretibial edema. No calf tenderness. No differential swelling of the upper extremities. Skin is warm, dry, and perfused without cyanosis or mottling, including that of the nailbeds and knees. Neck is supple. There is no jugular venous distention. No subcutaneous emphysema. Trachea is midline. Mouth shows the mucous membranes to be pink and moist. Lips and gums show no lesions or thrush. Eyes show her pupils to be equal and reactive. Extraocular movements intact. Sclerae are anicteric. Neurologic shows II-XII intact. Normal gross motor, gross sensation intact. Gait is not tested. Psychiatric shows her to be awake, alert, and oriented times three with appropriate mood and affect and conversational. Her white count today is 6.3 and hemoglobin and hematocrit of 10.8 and 36.7, slightly down from yesterday of 11.4 and 39.0. Platelet count 136 and stable. There is no differential on her. Her electrolytes show a potassium 5.6 with a sodium 132. BUN and creatinine are 46 and 2.97. She is due for dialysis today. Glucose is 115 with a calcium of 9.1. Total bilirubin is 1.3, essentially unchanged from admission of 1.4. Albumin is 2.8. Her pleural fluid has been returned with a pH of 7.55 and a glucose of 119 with LDH of 75 with a corresponding serum LD of 269. Her fluid total protein is 2.4 with a serum total protein of 7.2. There are 120 white cells, 90% of which are lymphocytes and mononuclear cells, and 9% are neutrophils. This therefore looks like a lymphocytic transudative effusion. Pathology is pending, as is bacteriology. Her chest x-ray this morning shows the diffuse haze in the right lower hemithorax. It is much improved after the pigtail catheter placement. Pigtail catheter looks to be placed at the costophrenic angle. The postprocedure x-ray shows some residual atelectasis. There is a residual small air-fluid level. Right heart border looks to be enlarged. IMPRESSION: 1. Pericardial effusion, improved since April 2019. No evidence of tamponade. 2. Right-sided pleural effusion, drained with a pigtail catheter. 3. Underlying right lower lobe compression from the pleural effusion. 4. Small right lower lobe pulmonary embolism. 5. Diabetes. 6. End stage renal disease. 7. Orthostatic hypertension. 8. Hypothyroidism. 9. Chronic constipation. PLAN AND DISCUSSION: We will continue to drain the chest with the pigtail catheter, as it has just been placed. I will place her on analgesic medication, including Toradol, as her kidneys are now completely gone, and she is undergoing dialysis. She is already on omeprazole to cover possible gastritis from the Toradol. We will continue the Pleur-evac at -20 of suction. [facility]
--- NOTE | 2020-01-05 09:11 | IPNPDOC ---
Text Note Date of Service The patient was seen on 01/05/20. NOTE 49 yo admitted with pericardial effusion, first noted high pitched constant t innitus in both ears about a month ago. She states it came on suddenly. However 2 days ago there was a dramatic worsening of it with sudden loss of all hearing. There was no acute vertigo event, head trauma, ototoxic drug exposure or menigntiis, URI, sinus or nasal congestion She was empirically started on Prednisone and she has noted an improvemnt in hearing Exam shows Facial Nerve function symmetrical and intact No nystagmus EACS clear TMs intact, mobile and without inflammatory changes IMP This appears to be a a bilateral sudden Sensorineural hearing loss, and not something more mundane like middle ear effusions. It could be Menieres though bilateral is rare or Autoimmune hearing loss, again very rare Most likely it is vasuclar as a result of hypotension She needs audiology but obviously not available in house Treatment would be shot gun to cover all possible etiolgies, including Prednisone 60/day for 5 days then 40/day 5 days then 30/day5 days Diureteics and Vasodilators have some theoretical value but she is on dialysis, so this is helpful Follow up after discharge, She should have an immediate consult at [facility] prior to her visit with me. VS,[place], I+O VS, [place], I+O Laboratory Tests 01/05/20 05:56 Vital Signs Date Time Temp Pulse Resp B/P (MAP) Pulse Ox O2 Delivery O2 Flow Rate FiO2 01/05/20 04:00 97.2 77 14 108/65 (79) 96 Room Air 01/04/20 12:17 12/31/19 06:30 95 I&O- Last 24 Hours up to 6 AM 01/05/20 06:00 Intake Total 1292 ml Output Total 240 ml Balance 1052 ml ANTHONY CABRERA MD Jan 05, 2020 09:11
--- NOTE | 2020-01-05 09:15 | IPN ---
DATE: 01/02/2020 Ms. Trivedi was drained of nearly 1000 mL when a pigtail catheter was placed. Yesterday's total drainage was 1800 mL. Today, her main complaint is that she cannot hear with the severe ringing in her ears. She dates this back to when she became hypotensive about 2 months ago and was admitted to the hospital. Her pain is being well controlled at the chest catheter insertion site. She did ambulate today. She is moving well in bed. Her vital signs show a maximum temperature of 98.1 with a heart rate that ranges between 68-73 in a sinus rhythm, respiratory rate of 18-20 without the use of accessory muscles, who is 88%-100% saturated on 2 liters nasal cannula with blood pressures ranging between 81/51 to 84/52. Her intake and output for the past 24 hours has been recorded as 1179 in and 2050 out, for a negativity of 870 mL. There was 250 mL taken off at renal dialysis yesterday. Her chest tube outputs are noted above. She has put out 200 mL in the last 12 hours. PHYSICAL EXAMINATION: Her lungs show very coarse breath sounds during inspiration and expiration in the right lower hemithorax. Percussion notes, however, are full to the diaphragm. Cardiac exam is without murmurs, clicks, gallops, or rubs. I cannot feel her point of maximal impulse (PMI). S1 and S2 are normal. Abdomen is soft, nontender, slightly tympanitic. There is no costovertebral angle (CVA) tenderness. No hepatomegaly. Extremities show maybe trace pretibial edema. No calf tenderness. No differential swelling of the upper extremities. Skin is warm, dry, and perfused without cyanosis or mottling, including that of the nailbeds and knees. Neck is supple. There is no jugular venous distention. No subcutaneous emphysema. Trachea is midline. Mouth shows the mucous membranes to be pink and moist. Lips and commissures show no lesions or thrush. Eyes show her pupils to be equal and reactive. Extraocular muscles intact. Sclerae anicteric. Neurologic shows II-XII intact. Normal gross motor, gross sensation intact. Gait is not tested. Psychiatric shows her to be awake, alert, and oriented times three with appropriate mood and affect and conversational. Her white count today is 7.4 with a hemoglobin and hematocrit of 9.8 and 33.3, slightly down from yesterday's of 10.8 and 36.7. Platelet count is 123. It continues to decrease from an admission platelet count of 146. Her electrolytes show sodium 131, potassium 4.6. BUN and creatinine are improved after dialysis to 34 and 4.43 with a glucose of 232. Calcium is 9.1 with a corresponding albumin of 3.0. She remains on heparin for her pulmonary embolism, and her PPT is 108.2 seconds. I discussed her pleural fluid analysis yesterday being transudative and lymphocytic. Pathology has come back negative for malignancy. No organisms were seen on Gram stain. Cultures are pending. Her chest x-ray shows her lung fully expanded to the chest wall on the right side. Costophrenic angles are sharp on the right side, slightly blunted on the left side. There may be a slight infiltrative process posteriorly, probably on the right side rather than the left. I suspect this is secondary to lung compression. Pigtail catheter is in good place, low in the costophrenic angle. IMPRESSION: 1. Pericardial effusion, improved since April 2019. 2. Pleural effusion, drained with pigtail catheter, looking transudative and lymphocytic. 3. Right lower lobe lung compression, improving. 4. Right lower lobe subsegmental pulmonary embolism, on heparin. 5. Diabetes. 6. End stage renal disease. 7. Orthostatic hypotension. 8. Hypotension. 9. Chronic constipation. 10. Tinnitus. PLAN AND DISCUSSION: I will take her chest catheter off suction today. I understand that the renal medical service is going to put her on midodrine to increase her blood pressure. I am concerned that the tinnitus was an acute event 2 months ago when she was initially hypotensive. I am wondering whether she has a brain lesion or has had some type of stroke. I will order a CT of her head. LESVIA
--- NOTE | 2020-01-05 09:17 | IPN ---
DATE: 01/04/2020 SUBJECTIVE: Mrs. Carreon hearing has returned and she is now able to hold a conversation. She has developed tinnitus but it looks as though the steroids started yesterday have had a salient effect. ENT is yet to see her. PHYSICAL EXAM: Vital signs: Her vital signs show a maximum temperature (T-max) of 98.6 with a heart rate that ranges between 71 and 79 in sinus rhythm, respiratory rate between 15 and 18 without the use of accessory muscles who is 92% saturated on 2 liters nasal cannula. Blood pressure ranging between 104/62 to 99/55. All in all her blood pressure is trending upwards now. On physical examination today her lungs now show expiratory wheezing that I have not heard before. Percussion is full through the diaphragm. She is on Xopenex neb therapy. Cardiac: Without murmurs, clicks, rubs or gallops. I cannot feel her PMI. S1, S2 are normal. Abdomen: Soft and nontender. Bowel sounds are positive. There is hepatomegaly, no CVA tenderness. Extremities: Show no pretibial edema, no calf tenderness. No differential swelling of the upper extremities. Skin: Warm, dry and perfused without cyanosis or mottling, including that of the nailbeds and knees. Neck is supple, no jugular venous distention, no subcutaneous emphysema. Trachea is midline. Mouth shows the mucous membranes to be pink and moist. Lips and commissures with no thrush. Eyes reveals pupils equal and reactive. Extraocular movements intact. Sclerae are anicteric. Neuro: CN II-XII intact with gross motor, gross sensation intact. Gait is not tested. Psychiatric: Awake and alert and oriented times three. She has appropriate mood and affect. LABORATORY DATA: Her white count today 6.9 with hemoglobin and hematocrit 10.9 and 35.4 respectively, with a platelet count 117. There is no differential. Electrolytes show a sodium of 131, potassium 5.1, with a BUN and creatinine of 36 and 4.16 after dialysis yesterday. Glucose is 235 with a calcium of 9.2. AST and ALT are up today at 319 and 127 which is a marked increase from yesterday. Her total bilirubin is 1.7 down from 1.9 yesterday. Albumin is 3.1. Her PTT is 63 seconds. Her intake and output over the past 24 hours was recorded as 930 in and 720 out for a positivity of 210 mL. She has put 220 mL out the chest tube which is improving. Weight today is 73.4 kg from 73.5 kg yesterday and 500 mL were taken off yesterday in dialysis. There is no urine output. Her chest x-ray shows her lungs fully expanded to chest wall but there is a small apical pneumothorax secondary to tube placement. The pigtail catheter looks to be in good place. The PA film shows clearing of the left costophrenic angle which is also seen on the lateral film. She still has a little atelectasis posteriorly on the lateral film. It is improving from yesterday. IMPRESSION: 1. Pericardial effusion, improved since April 2019. 2. Pleural effusion relieved with a pigtail catheter and getting better. 3. Underlying right lower lobe compression secondary to pleural effusion, improving. 4. Small right segmental branch pulmonary embolism. 5. Diabetes. 6. End-stage renal disease. 7. Hypothyroidism. 8. Chronic constipation. 9. Acute hearing loss improved with steroids. ENT consult pending. PLAN/DISCUSSION: She is on Heparin now and can be transitioned to oral anticoagulants regardless of the chest catheter. I would suggest that we start transitioning her to Coumadin. We await the ENT consult but her hearing improvement is markedly better although she continues with her tinnitus. She was in April 2019 severely hypothyroid with a TSH of 116. She told the nursing staff that she does not take her Synthroid because she feels that it is the cause of her tinnitus and her tinnitus gets worse when she takes the Synthroid. That will have to be addressed. She certainly needs to have her thyroid hormone replaced. LESVIA
--- NOTE | 2020-01-05 09:19 | IPN ---
DATE: 01/01/2020 SUBJECTIVE: Patient was seen and examined the bedside today morning in the intensive care unit (ICU). She was getting ready to go to interventional radiology (IR) to get a right-sided pleural pigtail placed for right pleural effusion. Today is also patient's day of dialysis as well. She continues to have soft blood pressures, and she reports mild persistent shortness of breath. OBJECTIVE: Vital signs: Temperature is 97.3 degrees Fahrenheit, blood pressure 84/52, pulse is 68, respiratory rate of 18, saturating 94% on room air. Intake and output: There is no significant urine output recorded. Weight in the bed scale is 73.4 kg, which is stable since yesterday. PHYSICAL EXAMINATION: GENERAL: Patient is awake, alert, oriented times three, lying in bed in no apparent distress. HEAD AND NECK: Extraocular muscles intact. Pupils equally round and reactive to light. Mucous membranes are moist. Neck is supple. She has mildly elevated jugular venous distention (JVD). CARDIOVASCULAR: S1, S2, regular rate. Trace edema of the bilateral lower extremities. RESPIRATORY: Decreased breath sounds at the bases. Decreased vocal resonance at the bases bilaterally, worse on the right side as compared with left. ABDOMEN: Soft. Positive bowel sounds. Nontender. No organomegaly. Old surgical scars on the abdomen are visible. MUSCULOSKELETAL: No clubbing or cyanosis. Edema 1+ of the extremities is noted. CENTRAL NERVOUS SYSTEM: No focal deficit. Power is 5/5 in all extremities. LABORATORY REVIEW: CBC showed WBC 6.3, hemoglobin 10.8, platelets are 136. PTT is 75.6 in the morning. BMP showed sodium 132, potassium 5.6, chloride 96, bicarbonate 28, BUN 46, creatinine 5.9. Total bilirubin 1.3, AST 30, ALT 34, alkaline phosphatase is 167, albumin is 2.8. Free T4 is 1.1, free T4 is 1.29. IMAGING: A chest x-ray was done today morning. I cannot access the images, and official report is still pending. CURRENT INPATIENT MEDICATIONS: Patient's medications were all reviewed by myself. She is not on any antihypertensive at this time because of soft blood pressure. I have started the patient on midodrine 5 mg by mouth 30 minutes before each dialysis. She was on heparin protocol, which is on hold because of right pleural procedure. ASSESSMENT AND PLAN: 1. End stage renal disease. Today is patient's regular dialysis today according to Sunday, , Sunday schedule. She will be dialyzed today with midodrine, and if her blood pressure tolerates she will get minimal ultrafiltration done. 2. Hyperkalemia. She will be dialyzed with a 2K bath. Potassium should get better with that. 3. Acute on chronic decompensated diastolic congestive heart failure. Patient has pleural effusions, a small pericardial effusion. She was already dialyzed [id number] as outpatient this week. It is difficult to remove fluid in this patient because of low blood pressures. I will try to optimize her with midodrine. Patient does not get any diuretics. 4. Pulmonary embolism. Patient is on heparin drip, which is on hold at this time because of the right pleural effusion procedure. 5. Right-sided pleural effusion. Patient is going to have a pigtail catheter placed. 6. Diabetes mellitus, type 2. Continue current dose of insulin. Rest of the management is as per medical team. 7. Hypothyroidism. Patient's levothyroxine dose was increased to 150 mcg by mouth daily. 8. Pericardial effusion. Patient has a small pericardial effusion, which is not causing any tamponade. Continue current dialysis regimen with fluid removal. MTDD
--- NOTE | 2020-01-05 09:20 | IPN ---
DATE: 01/02/2020 SUBJECTIVE: Patient was seen and examined at the bedside today morning in the intensive care unit (ICU). She was dialyzed yesterday at the bedside, blood pressures were very low, she needed albumin 25 grams IV with dialysis and minimal fluid removal was done. Chest tube continues to drain well. Patient is hypotensive and I have started her on midodrine 5 mg by mouth three times a day. She is complaining of tinnitus at this time. OBJECTIVE: Vital signs: Temperature is 97.3 degrees Fahrenheit, blood pressure 84/52, pulse is 68, respiratory rate of 18, saturating 100% on nasal cannula at two liters. Intake and output: There is no significant urine output recorded. Chest tube drainage is 1800 mL yesterday, 200 mL so far today since overnight. Weight in the bed scale was 73.4 kg yesterday. No bed scale weight is available today. PHYSICAL EXAMINATION: General: Patient is awake, alert, oriented times three, laying in bed, no apparent distress. Head and neck exam: Extraocular muscles intact. Pupils equally round and reactive to light. Mucous membranes are moist. Neck is supple. There is mildly elevated jugular venous distension (JVD). Cardiovascular: S1, S2, regular rate. Trace edema of the bilateral lower extremities. Respiratory: Decreased breath sounds at the bases and inspiratory crackles at the right base and she has a pigtail catheter in the right chest. Abdomen: Soft, positive bowel sounds. Abdominal wall edema was noted. Musculoskeletal: No clubbing or cyanosis. She has an arteriovenous (AV) graft in the right thigh. 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 She is hard of hearing and has poor vision. Otherwise, she moves all extremities and follows commands. LABORATORY REVIEW: CBC showed WBC 7.4, hemoglobin 9.8, platelets are 123. BMP showed sodium 131, potassium 4.6, chloride 95, bicarbonate 30, BUN 34, creatinine 4.4. A1c 7.6, TSH is 4.3. CURRENT INPATIENT MEDICATIONS: Patient continues to be on IV heparin drip. Her midodrine has been changed to 5 mg by mouth three times a day. ASSESSMENT AND PLAN: 1. End-stage renal disease. Patient was dialyzed at the bedside. Minimal fluid removal was done because of low blood pressures. Next hemodialysis will be done tomorrow morning. 2. Acute decompensated diastolic congestive heart failure. It is very difficult to remove fluid because of low blood pressures. However, she has a chest tube in the right side which is draining well. Continue to monitor daily intake and output and daily weights. She is not a candidate for any diuretics because she has minimal urine output. 3. Pulmonary embolism. She is on IV heparin drip protocol. 4. Coronary artery disease. Continue atorvastatin and aspirin. 5. Tinnitus. Patient is getting IV Toradol for pain. I will stop giving her Toradol, which this can make her tinnitus worse. 6. Diabetes mellitus type 2, insulin-dependent. Patient is currently on insulin sliding scale. Continue current regimen. 7. Hypotension. She has been started on midodrine 5 mg by mouth three times a day. 8. Hypothyroidism. Her levothyroxine dose was increased to 150 mcg by mouth daily. MTDD
--- NOTE | 2020-01-05 09:23 | IPN ---
DATE: 01/03/2020 SUBJECTIVE: Ms. Trivedi is seen this morning on her bedside. She is currently sitting in the chair. She is very hard of hearing and also unable to see. She has been hypotensive and not receiving any antihypertensive medications. She has a chest tube in her right chest due to large right pleural effusion. Patient did eat this morning and denies any nausea or vomiting. PHYSICAL EXAMINATION: VITAL SIGNS: Temperature 97.8 degrees Fahrenheit, heart rate 80 per minute, respiratory rate 16 per minute, blood pressure 94/55 mmHg and oxygen saturation 100% on 2 liter oxygen. HEENT: Head is atraumatic. Neck is supple and JVD not elevated. Sitting upright. HEART: Heart sounds are regular and without a pericardial friction rub. LUNGS: Diminished breath sounds on the right base. She does have a pleural rub. ABDOMEN: Soft and nontender. Bowel sounds are normal. EXTREMITIES: Without any cyanosis or clubbing. She has a dialysis graft in her right thigh. IMAGING STUDIES: Yesterday she had an MRI of the brain, which did not show any acute infarct. LABORATORY DATA: Todays labs showed WBC 9.8, hemoglobin 10.2, hematocrit 34.9, platelets 122,000. Sodium 133, potassium 5.0, CO2 25, BUN 49, creatinine 5.68, glucose 163 and calcium 9.0. PROBLEMS: 1. End-stage renal disease: Patient is due for dialysis today. Will plan to dialyze her this afternoon. Blood pressure is soft and we will have to monitor closely. We will try not to remove any fluid during dialysis. She will given Midodrine 5 mg prior to dialysis in order to prevent further hypotension. 2. Right pleural effusion; status post chest tube: Patient currently has a pleural catheter in place, which is draining clear fluid. 3. Hypotension: Blood pressure is low and etiology is uncertain. She does not have any significant pericardial effusion. Patient has history of hypertension and was on antihypertensive medications up until this admission. Currently she is not receiving any antihypertensive meds. We will try not to remove any fluid and give her up to 600 mL of normal saline during dialysis if needed. 4. Anemia: Anemia is stable at present and does not need any urgent intervention. 5. Loss of hearing and eye sight: She has been legally blind due to diabetic retinopathy. Loss of hearing is recent and probably related to her current condition with hypotension and medications. [facility]
--- NOTE | 2020-01-05 09:26 | REP ---
ULTRASOUND GUIDED THORACENTESIS WITH CATHETER PLACEMENT: The procedure was performed under the direct supervision of Dr. Moe. The risks and benefits of the procedure were explained to the patient and informed consent was obtained. The right pleural effusion was localized using ultrasound guidance. The skin was prepped and draped in a sterile fashion. 1% Lidocaine was used as a local anesthetic. Using ultrasound guidance, a 10 [place] Skater APDL catheter was inserted using trocar technique. 1L of yellow fluid was withdrawn and sent to the lab for analysis. The catheter was affixed to the skin and a sterile dressing was applied. The catheter was connected to a Pleur-Evac. The patient tolerated the procedure well and there were no immediate complications. After the appropriate amount of monitored convalescence, the patient was discharged from the department. [facility]
--- NOTE | 2020-01-05 09:28 | REP ---
SINGLE-VIEW CHEST X-RAY HISTORY: Pleural effusion. Patient status post pigtail catheter placement right pleural space. Post thoracentesis. FINDINGS: A percutaneously placed pleural pigtail catheter is seen at the right base. There is a decrease in the amount of right pleural fluid since the study done at 8:42 am on this same date. There is a small quantity of pleural air along the minor fissure, but no robert pneumothorax is seen. There is slight blunting of the left lateral pleural angle. IMPRESSION: Pigtail catheter in good position. MTDD
[2020-01-05] MEDS ORDERED: LACTULOSE 20 GM/30 ML SYRUP UD PO PRN (11:00)
[2020-01-05 12:00] VITALS: BP 92/58
--- NOTE | 2020-01-05 15:44 | IPNPDOC ---
Date Seen The patient was seen on 01/05/20. Progress Note SUBJECTIVE: Subha was seen and examined this morning by the hospitalist service while sitting in bedside chair. There are no acute overnight events reported. She denies any tinnitus this morning. She did refuse her levothyroxine morning dose. She reports some lightheadedness when transferring from the bed to chair/changing positions that resolves spontaneously. She has not had a bowel movement since admission and reported some mild intermittent abdominal pain. She denies any significant dyspnea and is breathing room air. She denies any current fever, chills, night sweats, chest pain, chest pressure, palpitations, nausea, vomiting, dysuria or hematuria. OBJECTIVE PHYSICAL EXAMINATION: VITAL SIGNS: Please see below. PHYSICAL EXAMINATION: VITAL SIGNS: Please see below. GENERAL APPEARANCE: Pleasant female seated in bedside chair. Appears older than stated age. There is a right-sided chest tube in place. No acute distress. Alert and oriented 3. HEENT: Normocephalic, atraumatic. Mild scleral icterus and conjunctival pallor. Pupils did not significantly react to light stimulus. Moist mucous membranes. Edentulous. NECK: Supple with no thyromegaly, lymphadenopathy, or JVD. RESPIRATORY: Diffuse right sided crackles appreciated posteriorly. Symmetric chest expansion. Breathing room air. Speaking full sentences.. There is a chest tube catheter in place. Approximately 250 and 100 of serous fluid has drained the past 6 hours. Skin around catheter is not erythematous, not indurated, and not warm. CARDIOVASCULAR: Regular rate, regular rhythm. Normal S1, S2. No murmurs, rubs or gallops appreciated. ABDOMEN: Obese. Soft, mild to moderate distention left upper and lower quadrants with some associated tenderness. Normoactive bowel sounds throughout. No guarding or rigidity appreciated. No significant hepatomegaly appreciated. EXTREMITIES: 1+ pitting edema bilateral lower extremities, right greater than left. Chronic venous stasis changes bilaterally. NEUROLOGICAL: Awake, alert and oriented 3. No focal neurologic deficits appreciated. Non-dysarthric speech. PSYCHIATRIC: Mood and affect appear appropriate LABORATORY DATA, IMAGING STUDIES, MICROBIOLOGY: Please see below. Echocardiogram: 12/31/2019 1. Normal global left ventricular systolic function with mild concentric left ventricular hypertrophy and a hyperdynamic left ventricle. Assessment of the left ventricular diastolic function also appeared to be normal. 2. Mildly dilated left atrium with mitral leaflet calcification and trace mitral regurgitation. 3. Aortic valve sclerosis without stenosis or aortic regurgitation. 4. Moderate tricuspid regurgitation with mild pulmonary artery hypertension. The right atrium appeared to be mildly enlarged in limited views. 5. [id number] pulmonic regurgitation. 6. Right pleural effusion was noted. 7. Pericardial effusion was noted, moderate posteriorly and small anteriorly. There was no evidence of cardiac tamponade. 8. This was compared with most recent echocardiogram on 12/15/2019 and at that time, pulmonary artery systolic pressure was higher. Otherwise, no remarkable changes. ASSESSMENT AND PLAN: 49yo female with h/o ESRD on HD, PVD, DM w/ neuropathy, hypothyroidism, h/o CAD s/p prior pci with stent placement admitted for progressive dyspnea and found to have RLL PE, Rt sided pleural effusion s/p chest tube, chronic pericardial effusion and electrolyte abnormalities. Initially admitted with ICU status, now pt is PCU status while still in ICU. #Dyspnea -this has improved significantly from admission. She is satting well on room air and endorses only mild DEL TORO when transferring from bed to chair. -likely was multifactorial in nature; predominantly 2/2 to PE and pleural effusion. #RLL PE -currently bridging with both heparin and coumadin. D/t ESRD, NOACs were deferred. -will c/w bridge until INR is therapeutic, between 2-3. INR was 1.32 this morning. #B/l pleural effusions -s/p placement of right chest tube. Cardiothoracic surgery is consulted and appreciate Dr. Lopez's input and recommendations -fluid analysis transudative -saturating well on room air now -scheduled to be taken for hemodialysis today #ESRD on HD () with anuria -while pt is HD, due to worsened hyperkalemia and hyponatremia, along with improved BP, is going for hemodialysis today -nephrology has been consulted and we appreciate their insight and recommendations #Transaminitis -jump in AST and ALT over past 48 hrs -obtaining RUQ/Liver ultrasound today after hemodialysis for further evaluation -pt reports she was told about 5 years ago she has liver cirrhosis, but has not had GI f/u since then #Electrolyte abnormalities -worsened hyperK (5.9) and hypoNa (125) on labs this morning, most likely 2/2 ESRD -work-up being held until reassessment after hemodialysis today #Pericardial effusion -stable and noted to have improved since April 2019 #Tinnitus -Fairly much resolved at this point as pt denied on ROS this morning -seen and evaluated by ENT today (Dr. Orlando); pt thought to have inner ear issue. ENT started PO prednisone today with gradual taper. -MRI showed no acute findings #Hypotension -SBPs over past 24-36 hrs now in the low 100s, improved on midodrine -going for HD today #History of Hypothyroidism -take levothyroxine as outpt. She had been taking daily while inpt, but refused it this morning. -discussed her unremarkable thyroid panel results with her and that taking synthroid would be okay #IDDM with peripheral neuropathy -c/w SSI, hypoglycemic protocol, and fsbs achs #Constipation -pt has not had BM since admission and has some left abd tenderness on exam -c/w colace and adding lactulose today #History of CAD s/p prior pci with stent placement -c/w statin and asa #DVT prophylaxis: on full anticoagulation with heparin and coumadin VS, I&O, 24H, Fishbone Vital Signs/I&O Vital Signs Date Time Temp Pulse Resp B/P (MAP) Pulse Ox O2 Delivery O2 Flow Rate FiO2 01/05/20 04:00 97.2 77 14 108/65 (79) 96 Room Air 01/04/20 12:17 12/31/19 06:30 95 I&O- Last 24 Hours up to 6 AM 01/05/20 06:00 Intake Total 1292 ml Output Total 240 ml Balance 1052 ml Laboratory Data 24H LABS Laboratory Tests 2 01/04/20 16:45: Bedside Glucose (Misc Panel) 142H 01/04/20 18:06: Activated Partial Thromboplast Time 75.4H 01/04/20 20:41: Bedside Glucose (Misc Panel) 203H 01/05/20 05:56: Activated Partial Thromboplast Time 85.9H, Nucleated Red Blood Cells % (auto) 0.9H, Prothrombin Time 16.7H, Prothromb Time International Ratio 1.32, Anion Gap 11, Glomerular Filtration Rate 8.9L, Calcium Level 9.1, Total Bilirubin 1.3H, Aspartate Amino Transf (AST/SGOT) 318H, Alanine Aminotransferase (ALT/SGPT) 170 H, Alkaline Phosphatase 154H, Total Protein 7.5, Albumin 3.1L, Albumin/Globulin Ratio 0.7L, Thyroid Stimulating Hormone (TSH) 1.910, Free Thyroxine Index 2.9, Thyroxine (T4) 7.4, Triiodothyronine (T3) Uptake 39 01/05/20 07:16: Bedside Glucose (Misc Panel) 262H 01/05/20 11:36: Bedside Glucose (Misc Panel) 204H CBC/BMP Laboratory Tests 01/05/20 05:56 Microbiology Microbiology 01/01/20 Acid Fast Stain, Received Pending 01/01/20 Mycobacterial Culture, Received Pending 01/01/20 Fungal Smear, Received Pending 01/01/20 Fungal Culture, Received Pending 01/01/20 Gram Stain - Final, Complete 01/01/20 Anaerobic Culture - Final, Complete 01/01/20 Body Fluid Culture - Final, Complete 01/01/20 Stool Occult Blood (FERNANDO) - Final, Complete GME ATTESTATION GME ATTESTATION My faculty preceptor for this patient encounter was physically present during the encounter and was fully available. All aspects of the patient interview, examination, medical decision making process, and medical care plan development were reviewed and approved by the faculty preceptor. The faculty preceptor is aware and concurs with the plan as stated in the body of this note and will attest to such by his/her cosignature. ATTENDING NOTE I, Pedrito Castillo, have independently examined this patient and performed my own physical exam, as well as reviewed the documentation and edited where necessary. I have discussed in detail with the resident / student the findings and plan of treatment as documented by the resident / student and edited their note. I agree with their findings and treatment plan and have edited their documentation. I will continue to follow the patient during this hospital stay. GARRISON SAUNDERS D.O. Jan 05, 2020 15:44 PEDRITO CASTILLO MD Jan 06, 2020 15:32
[2020-01-05 17:15] VITALS: BP 116/67
[2020-01-05] MEDS: WARFARIN SOD 5MG TAB PO SCH (17:16)
--- NOTE | 2020-01-05 17:48 | REPVR ---
PROCEDURE INFORMATION: Exam: US Abdomen, Limited; Right Upper Quadrant Exam date and time: 01/05/2020 4:44 PM Age: 49 years old Clinical indication: Abdominal pain; Acute; Additional info: Transaminitis TECHNIQUE: Imaging protocol: US abdomen. Real time ultrasound with image documentation. Limited exam focused on the right upper quadrant. COMPARISON: 1. Abdomen, limited US 12/17/2018 9:[address] ABD/PEL W/IV CONTRAST ONLY 12/31/2019 8:45:[address] ABD PELVIS W/O CONTRAST 05/07/2019 10:21:06 PM [address]IS NEEDLE PLACE US 08/08/2016 2:09:08 PM 5. SR - CT ABD W/IV CONTRAST ONLY 09/17/2018 10:08:41 AM FINDINGS: Liver: There is a small well-defined subcapsular echogenic nonshadowing lesion in the left lobe of the liver measuring 10 x 7 x 5 mm. In retrospect, this corresponds to a subtle area of slightly decreased density on contrast CT abdomen from 09/17/2018 with similar size, most likely a small hemangioma. The liver is enlarged. Gallbladder: There are multiple echogenic shadowing calculi which are mobile in the gallbladder. Gallbladder wall thickness is slightly increased at 4 mm. There is no mild disabilities teacher report regarding Mohr sign. No pericholecystic fluid. Common bile duct: Common bile duct is normal in caliber, measuring 4 mm. Pancreas: The pancreas is obscured by shadowing bowel gas. Right kidney: The right kidney is atrophic with renal cortical thinning. The right kidney measures 8.8 x 3.7 x 2.6 cm and is small in size. No hydronephrosis. Echogenic calcification at the renal hilum may be vascular in nature. IMPRESSION: 1. Cholelithiasis with mild gallbladder wall thickening. However, there is no pericholecystic fluid or biliary ductal dilatation. Findings are equivocal for cholecystitis. Suggest correlation with laboratory studies. 2. Hepatomegaly. 3. Small 10 mm echogenic lesion in the left liver, most likely a small hemangioma, similar in size to a subtle lesion on 09/17/2018. 4. Right renal atrophy. Calcification at the right renal hilum which may be vascular in nature in comparison with prior CT. No hydronephrosis. Electronically signed by: Jeannette Yeboah On 01/05/2020 17:48:02 PM
[2020-01-05] MEDS: PERCOCET 5MG/325MG TAB PO PRN (18:46)
[2020-01-05 20:00] VITALS: BP 90/53
[2020-01-06] VITALS (7 sets, daily range): BP systolic 79–101; BP diastolic 49–63
[2020-01-06] MEDS: LEVALBUTEROL 1.25 MG/0.5 ML CONCENTRATE NEB NEB SCH ×4 (02:00→19:24)
[2020-01-06] MEDS: HEPARIN DRIP 25,000 UNITS in IV 1 EA IV SCH (03:57)
[2020-01-06 04:29] LABS: HEMATOCRIT 36.4 % (36.0-47.0); MEAN CORPUSCULAR HEMOGLOBIN 32.5 pg (27.0-33.0); MEAN CORPUSCULAR HGB CONC 30.2 g/dl (32.0-36.5); MEAN CORPUSCULAR VOLUME 107.7 fl (80.0-96.0); PLATELET COUNT, AUTOMATED 109 10^3/uL (150-450); RED BLOOD COUNT 3.38 10^6/uL (4.00-5.40)
[2020-01-06 04:39] LABS: INR 1.39; PROTHROMBIN TIME 17.4 SECONDS (12.5-14.3)
[2020-01-06 04:52] LABS: ALBUMIN 3.1 GM/DL (3.2-5.2); BILIRUBIN,TOTAL 1.3 MG/DL (0.2-1.0); CALCIUM LEVEL 9.2 MG/DL (8.5-10.1); CREATININE FOR GFR 4.04 MG/DL (0.55-1.30); GLOMERULAR FILTRATION RATE 12.6 (>58); TOTAL PROTEIN 7.3 GM/DL (6.4-8.2)
[2020-01-06] MEDS: ONDANSETRON 4MG/2ML VIAL IV PRN (06:19)
[2020-01-06] MEDS: LEVOTHYROXINE 150MCG TABLET (0.15MG) PO SCH (06:19)
[2020-01-06 06:31] LABS: PARTIAL THROMBOPLASTIN TIME 70.9 SECONDS (24.2-38.5)
[2020-01-06] MEDS: ASPIRIN 81 MG ENTERIC TAB PO SCH (07:28)
[2020-01-06] MEDS: DOCUSATE SODIUM 100 MG CAP PO SCH ×2 (07:28→20:32)
[2020-01-06] MEDS: OMEPRAZOLE 20 MG CAP PO SCH ×2 (07:28→20:32)
[2020-01-06] MEDS: ATORVASTATIN 20 MG TAB PO SCH (07:29)
[2020-01-06] MEDS: MIDODRINE 5 MG TAB PO SCH ×3 (07:29→18:16)
[2020-01-06] MEDS: predniSONE 20 MG TAB PO SCH (07:29)
[2020-01-06] MEDS: HumaLOG INSULIN (NovoLOG) PER UNIT SC SCH ×4 (08:22→20:31)
--- NOTE | 2020-01-06 18:57 | IPNPDOC ---
Date Seen The patient was seen on 01/06/20. Progress Note SUBJECTIVE: Subha was seen and examined this morning by the hospitalist service while sitting in bedside chair. She reports return of her tinnitus overnight. Lactulose was added yesterday as she had not had a bowel movement since admission. Since we saw her yesterday, she has since had multiple bowel movements and resolution of her abdominal tenderness. She is experiencing no significant dyspnea on exertion with transfers from bed to chair. She denies any current or overnight fever, chills, night sweats, chest pain, palpitations, shortness of breath, cough, pleuritic chest pain, nausea, or vomiting OBJECTIVE PHYSICAL EXAMINATION: VITAL SIGNS: Please see below. GENERAL APPEARANCE: Pleasant female seated in bedside chair. Appears older than stated age. Right-sided chest tube remains in place. No acute distress. Alert and oriented 3. HEENT: Normocephalic, atraumatic. Mild scleral icterus and conjunctival pallor. Pupils did not significantly react to light stimulus. Left eye pterygium present. Moist mucous membranes. Edentulous. NECK: Supple with no thyromegaly, lymphadenopathy, or JVD. RESPIRATORY: Bilateral diffuse crackles posteriorly, more prominent on right side. Symmetric chest expansion. Breathing room air. Speaking full sentences. There is a chest tube catheter in place. Rate of fluid drainage from tube seems to be decreasing compared to previous days. Skin around catheter and surrounding bandage is not erythematous, not indurated, and not warm. CARDIOVASCULAR: Regular rate, regular rhythm. Normal S1, S2. No murmurs, rubs or gallops appreciated. ABDOMEN: Obese. Soft, non tender and no significant distention which is an improvement from yesterday's exam. Normoactive bowel sounds throughout. No guarding or rigidity appreciated. No significant hepatomegaly appreciated. EXTREMITIES: 1+ pitting edema bilateral lower extremities, right greater than left. Chronic venous stasis changes bilaterally. NEUROLOGICAL: Awake, alert and oriented 3. No focal neurologic deficits appreciated. Non-dysarthric speech. PSYCHIATRIC: Mood and affect appear appropriate LABORATORY DATA, IMAGING STUDIES, MICROBIOLOGY: Echocardiogram: 12/31/2019 1. Normal global left ventricular systolic function with mild concentric left ventricular hypertrophy and a hyperdynamic left ventricle. Assessment of the left ventricular diastolic function also appeared to be normal. 2. Mildly dilated left atrium with mitral leaflet calcification and trace mitral regurgitation. 3. Aortic valve sclerosis without stenosis or aortic regurgitation. 4. Moderate tricuspid regurgitation with mild pulmonary artery hypertension. The right atrium appeared to be mildly enlarged in limited views. 5. [id number] pulmonic regurgitation. 6. Right pleural effusion was noted. 7. Pericardial effusion was noted, moderate posteriorly and small anteriorly. There was no evidence of cardiac tamponade. 8. This was compared with most recent echocardiogram on 12/15/2019 and at that time, pulmonary artery systolic pressure was higher. Otherwise, no remarkable changes. DVT prophylaxis ordered: IV heparin for PE ASSESSMENT AND PLAN: 49yo female with h/o ESRD on HD, PVD, DM w/ neuropathy, hypothyroidism, h/o CAD s/p prior pci with stent placement admitted for progressive dyspnea and found to have RLL PE, Rt sided pleural effusion s/p chest tube, chronic pericardial effusion and electrolyte abnormalities. Initially admitted with ICU status, now pt is PCU status while physically still in ICU. #Dyspnea, resolved -Continues to saturate well on room air and endorses only mild DEL TORO when transferring from bed to chair. -likely was multifactorial in nature; predominantly 2/2 to PE and pleural effusion. #RLL PE -We had been bridging with both heparin and Coumadin simultaneously until her INR became therapeutic, but upon further collaborative review and analysis, patient did not have absolute contraindication to novel oral anti-coagulation medications. As result, we discontinued her Coumadin today and will continue with the heparin. Once the chest tube has been removed, we will begin the process of switching to Eliquis #B/l pleural effusions -s/p placement of right chest tube. Cardiothoracic surgery is consulted and we appreciate Dr. Lopez's continued input and recommendations. Per nursing, Dr. Lopez believes due to the decreased amount of drainage from the tube over the past 24 hours, potentially could remove the pigtail catheter tomorrow (01/06) -fluid analysis was transudative -saturating well on room air now -To be taken for hemodialysis today, a second consecutive day of HD; 1L of fluid was removed during yesterday's session #Small right-sided pneumothorax -We will monitor via surveillance imaging to see if this persists after chest tube is removed. #ESRD on HD () with anuria -while pt is HD, due to worsened hyperkalemia and hyponatremia, along with improved BP, she went for hemodialysis yesterday with 1 L removed. -While both her serum potassium and sodium improved this morning, she continues to be above her dry weight per nephrology, with accompanying bilateral pitting edema, and therefore will go today (01/05) for a second consecutive day of hemodialysis. -nephrology has been consulted and we appreciate their insight and recommendations #Transaminitis -While still elevated, AST decreased today versus yesterday. Her ALT and alkaline phosphatase remain elevated and similar levels as previous days. Right upper quadrant ultrasound yesterday showed cholelithiasis with gallbladder wall thickening without any stenosis of biliary tree. It was read as, "equivocal for cholecystitis." Hepatomegaly was also present. -pt reports she was told about 5 years ago she has liver cirrhosis, but has not had GI f/u since then. She denies any significant alcohol history and also denies any history of hepatitis -We have held her home statin medication and are trending LFTs #Electrolyte abnormalities -Both serum potassium and serum sodium improved after hemodialysis yesterday. Due to still remaining above her dry weight and bilateral pitting edema, nephrology planning for a second consecutive day of hemodialysis today #Pericardial effusion -stable and noted to have improved since April 2019 #Tinnitus -Patient reports tinnitus returned overnight -seen and evaluated by ENT today (Dr. Orlando); pt thought to have inner ear issue. ENT started PO prednisone today with gradual taper. -MRI showed no acute findings #Hypotension -Systolics have remained in the mid 90s while on midodrine, with maps right around 65; this appears to be about her baseline in the setting of end-stage renal disease -She is getting a second consecutive day of hemodialysis today, with 1 L of fluid removed during yesterday's hemodialysis session. -Continue to monitor vitals #History of Hypothyroidism -Home levothyroxine was continued upon admission. After refusing administration yesterday morning, patient did receive her daily dose this morning -discussed her unremarkable thyroid panel results with her yesterday and advocated that taking synthroid would be okay #IDDM with peripheral neuropathy -c/w SSI, hypoglycemic protocol, and fsbs achs #Constipation, resolved -In addition to Colace, lactulose was added yesterday and she subsequently had multiple bowel movements which were the first BM's she's had since admission #History of CAD s/p prior pci with stent placement -c/w statin and asa #DVT prophylaxis: IV heparin for PE DISPOSITION: Pending removal of chest tube and eventual switch to Eliquis VS, I&O, 24H, Regina Vital Signs/I&O Vital Signs Date Time Temp Pulse Resp B/P (MAP) Pulse Ox O2 Delivery O2 Flow Rate FiO2 01/06/20 08:00 98.0 70 19 95/51 (66) 97 Room Air 01/04/20 12:17 12/31/19 06:30 95 l I&O- Last 24 Hours up to 6 AM 01/06/20 06:00 Intake Total 1137 ml Output Total 1160 ml Balance -23 ml Laboratory Data 24H LABS Laboratory Tests 2 01/05/20 19:42: Bedside Glucose (Misc Panel) 218H 01/06/20 04:16: Nucleated Red Blood Cells % (auto) 1.8H, Prothrombin Time 17.4H, Prothromb Time International Ratio 1.39, Activated Partial Thromboplast Time 70.9H, Anion Gap 10, Glomerular Filtration Rate 12.6L, Calcium Level 9.2, Total Bilirubin 1.3H, Aspartate Amino Transf (AST/SGOT) 235H, Alanine Aminotransferase (ALT/SGPT) 169H, Alkaline Phosphatase 152H, Total Protein 7.3, Albumin 3.1L, Albumin/Globulin Ratio 0.7L 01/06/20 08:18: Bedside Glucose (Misc Panel) 233H 01/06/20 11:38: Bedside Glucose (Misc Panel) 182H 01/06/20 18:11: Bedside Glucose (Misc Panel) 165H CBC/BMP Laboratory Tests 01/06/20 04:16 Microbiology Microbiology 01/05/20 Stool Occult Blood (FERNANDO) - Final, Complete 01/01/20 Acid Fast Stain, Received Pending 01/01/20 Mycobacterial Culture, Received Pending 01/01/20 Fungal Smear, Received Pending 01/01/20 Fungal Culture, Received Pending 01/01/20 Gram Stain - Final, Complete 01/01/20 Anaerobic Culture - Final, Complete 01/01/20 Body Fluid Culture - Final, Complete 01/01/20 Stool Occult Blood (FERNANDO) - Final, Complete GME ATTESTATION GME ATTESTATION My faculty preceptor for this patient encounter was physically present during the encounter and was fully available. All aspects of the patient interview, examination, medical decision making process, and medical care plan development were reviewed and approved by the faculty preceptor. The faculty preceptor is aware and concurs with the plan as stated in the body of this note and will attest to such by his/her cosignature. ATTENDING NOTE I, Pedrito Castillo, have independently examined this patient and performed my own physical exam, as well as reviewed the documentation and edited where necessary. I have discussed in detail with the resident / student the findings and plan of treatment as documented by the resident / student and edited their note. I agree with their findings and treatment plan and have edited their documentation. I will continue to follow the patient during this hospital stay. GARRISON SAUNDERS D.O. Jan 06, 2020 18:57 PEDRITO CASTILLO MD Feb 08, 2020 12:18
[2020-01-06] MEDS ORDERED: ALPRAZolam 0.5 MG TAB PO ONE (23:00)
[2020-01-07] VITALS (161 sets, daily range): BP systolic 65–171; BP diastolic 44–96
[2020-01-07] MEDS: HEPARIN DRIP 25,000 UNITS in IV 1 EA IV SCH ×2 (01:22→11:57)
[2020-01-07] MEDS: LEVALBUTEROL 1.25 MG/0.5 ML CONCENTRATE NEB NEB SCH ×4 (02:00→19:43)
[2020-01-07] MEDS: ONDANSETRON 4MG/2ML VIAL IV PRN (02:08)
[2020-01-07] MEDS: PERCOCET 5MG/325MG TAB PO PRN (02:09)
[2020-01-07] MEDS ORDERED: MIDODRINE 5 MG TAB PO ONE (04:15)
[2020-01-07] MEDS ORDERED: NS 500 ML IV ONE (04:15)
[2020-01-07] MEDS ORDERED: NALOXONE INJ 0.4MG/1ML VIAL (J2310 PER 1MG) As Ordered ONE ×2 (05:07→05:17)
[2020-01-07 05:08] LABS: HEMATOCRIT 40.8 % (36.0-47.0); HEMOGLOBIN 12.4 g/dl (12.0-15.5); MEAN CORPUSCULAR HGB CONC 30.4 g/dl (32.0-36.5); MEAN CORPUSCULAR VOLUME 105.4 fl (80.0-96.0); PLATELET COUNT, AUTOMATED 101 10^3/uL (150-450); RED BLOOD COUNT 3.87 10^6/uL (4.00-5.40); WHITE BLOOD COUNT 9.4 10^3/uL (4.0-10.0)
[2020-01-07] MEDS ORDERED: ATROPINE SULF 1MG/10ML SYRINGE (J0461) As Ordered ONE (05:08)
[2020-01-07] MEDS ORDERED: NALOXONE INJ 0.4MG/1ML VIAL (J2310 PER 1MG) IV STA ×3 (05:10→06:00)
[2020-01-07 05:22] LABS: INR 1.75; PROTHROMBIN TIME 20.9 SECONDS (12.5-14.3)
[2020-01-07 05:40] LABS: VENOUS BASE EXCESS -8.6 (-2.0-2.0); VENOUS O2 SATURATION 99.4 % (60.0-80.0); VENOUS PARTIAL PRESSURE CO2 41.3 mmHg (38.0-50.0); VENOUS PARTIAL PRESSURE O2 172.4 mmHg (30.0-50.0); VENOUS PH 7.257 UNITS (7.330-7.430); VENOUS STANDARD HCO3 17.6 MEQ/L; VENOUS TOTAL CO2 19.3 MEQ/L (24.0-28.0)
--- NOTE | 2020-01-07 05:41 | IPNPDOC ---
Date Seen The patient was seen on 01/07/20. Progress Note INTERIM PROGRESS NOTE: [facility] was called at 0515AM when patient was found to be unresponsive. Per nursing, patient's BP was soft (MAP <65) and patient was complaining of "not feeling well." She had received Percocet and Xanax earlier in the evening and one extra dose of Midodrine with no improvement in BP. Upon entering the room, I found that the patient was breathing at a rate of 6 breaths/min, HR was in the 40s, BP 62/53, FSBS 168. The patient's femoral pulse was palpable and lower extr emities were cold. Pulse oximetry was unable to be obtained with good waveform, as patient's extremities were cold. Earlobe probe was utilized and oxygen saturation was found to be 76%. I initiated bag mask ventilation. Simultaneously, the patient was given 0.4mg Narcan x 2. After the second dose of Narcan, the patient woke up and was conversing, complaining of abdominal pain. EKG: NSR with no changes from prior Nursing concerned about complete heart block on monitor during this event. I have asked them to print rhythm strips and place in chart for review PLAN: -Start 500cc NS bolus -Labs pending: Cardiac Marker panel, CBC, CMP, Mg, Phos -STAT CXR -STAT ABG (if unable to obtain, get VBG) -STAT ABD XR, Colace, Mineral oil enema for constipation -Patient will most likely need central line placed today, as she has poor IV access (1 line (22G in R hand). -I have temporarily stopped pain medication, Rozerem as I believe this is the etiology of her unresponsiveness (in respect to ESRD and poor clearance). -Would recommend calling pain management during day shift in regards to safe medication regimen LATE ENTRY Rozerum is cleared by the liver. The AMS was likey 2/2 VS, I&O, 24H, Fishbone Vital Signs/I&O Vital Signs Date Time Temp Pulse Resp B/P (MAP) Pulse Ox O2 Delivery O2 Flow Rate FiO2 01/07/20 02:39 18 01/07/20 00:00 96.8 72 99/59 (72) 100 Room Air 01/04/20 12:17 I&O- Last 24 Hours up to 6 AM 01/07/20 06:00 Intake Total 340 ml Output Total 1150 ml Balance -810 ml Laboratory Data 24H LABS Laboratory Tests 2 01/06/20 08:18: Bedside Glucose (Misc Panel) 233H 01/06/20 11:38: Bedside Glucose (Misc Panel) 182H 01/06/20 18:11: Bedside Glucose (Misc Panel) 165H 01/06/20 20:31: Bedside Glucose (Misc Panel) 158H 01/06/20 23:44: Bedside Glucose (Misc Panel) 151H 01/07/20 04:56: Nucleated Red Blood Cells % (auto) 3.3H, Prothrombin Time 20.9H, Prothromb Time International Ratio 1.75 CBC/BMP Laboratory Tests 01/07/20 04:56 Microbiology Microbiology 01/05/20 Stool Occult Blood (FERNANDO) - Final, Complete 01/01/20 Acid Fast Stain, Received Pending 01/01/20 Mycobacterial Culture, Received Pending 01/01/20 Fungal Smear, Received Pending 01/01/20 Fungal Culture, Received Pending 01/01/20 Gram Stain - Final, Complete 01/01/20 Anaerobic Culture - Final, Complete 01/01/20 Body Fluid Culture - Final, Complete 01/01/20 Stool Occult Blood (FERNANDO) - Final, Complete GME ATTESTATION GME ATTESTATION My faculty preceptor for this patient encounter was physically present during the encounter and was fully available. All aspects of the patient interview, e xamination, medical decision making process, and medical care plan development were reviewed and approved by the faculty preceptor. The faculty preceptor is aware and concurs with the plan as stated in the body of this note and will attest to such by his/her cosignature. ATTENDING NOTE LATE ENTRY 01/07/20 Rozerum is cleared by the liver. The AMS was likey 2/2 oxycodone which is excreted in the urine but this patient has ESRD. Consider Pain management consult to transition to fentanyl which a better opiate for those w renal failure. DERRICK Mark MD, MD Jan 07, 2020 05:41 YASMANY ZARAGOZA MD Jan 07, 2020 23:25
[2020-01-07 05:44] LABS: BASO % 0.1 % (0.0-1.0); LYMPH # 1.2 10^3/uL (1.5-5.0); LYMPH % 12.7 % (24.0-44.0); MONO # 0.7 10^3/uL (0.0-0.8); MONO % 7.9 % (0.0-5.0); NEUTROPHILS # 7.3 10^3/uL (1.5-8.5); NEUTROPHILS % 78.1 % (36.0-66.0)
[2020-01-07 05:52] LABS: CALCIUM LEVEL 9.2 MG/DL (8.5-10.1); CREATININE FOR GFR 3.44 MG/DL (0.55-1.30); GLOMERULAR FILTRATION RATE 15.1 (>58); POTASSIUM SERUM 5.1 MEQ/L (3.5-5.1); TROPONIN I 0.16 NG/ML (< 0.10)
[2020-01-07 05:58] LABS: PARTIAL THROMBOPLASTIN TIME 161.7 SECONDS (24.2-38.5)
[2020-01-07 06:07] LABS: ALBUMIN 3.1 GM/DL (3.2-5.2); BILIRUBIN,TOTAL 1.5 MG/DL (0.2-1.0); CK-MB VALUE MASS 12.9 NG/ML (<3.6); MB/CK RELATIVE INDEX 9.15 (< OR =4); TOTAL PROTEIN 7.6 GM/DL (6.4-8.2)
--- NOTE | 2020-01-07 06:15 | REPVR ---
PROCEDURE INFORMATION: Exam: XR Chest, 1 View Exam date and time: 01/07/2020 5:48 AM Age: 49 years old Clinical indication: Other: Shortness of breath; Additional info: SOB TECHNIQUE: Imaging protocol: XR of the chest Views: 1 view. COMPARISON: 1. CR Chest, 2 view PA, Lat 01/06/2020 7:48 AM 2. CR - Chest, 2 view PA, Lat 01/02/2020 7:53:08 AM FINDINGS: Tubes, catheters and devices: A right sided pleural pigtail catheter is again noted inferiorly, unchanged in position. Lungs: Streaky opacity in the left lung base is without significant change from the prior exam. There is improvement in opacity previously seen in the right lung base with minimal residual hazy opacity. Pleural space: There is blunting of left costophrenic angle, consistent with a small left pleural effusion, unchanged. There is a small right-sided pneumothorax with a pleural line noted toward the apex as well as laterally in the lower chest, without significant change. Heart/Mediastinum: There is mild cardiomegaly. Bones/joints: Unremarkable. IMPRESSION: 1. Right pleural catheter unchanged in position. Small right pneumothorax, without significant change. 2. Small left pleural effusion and streaky left lung base opacities, without significant change. 3. Improvement in right lung base opacity. Electronically signed by: Nilsa Reynolds On 01/07/2020 06:14:48 AM
[2020-01-07 06:18] LABS: LYMPHOCYTES 15 % (16-44); NEUTROPHILS 85 % (28-66)
[2020-01-07 06:19] LABS: PLATELET ESTIMATE NORMAL (NORMAL)
[2020-01-07] MEDS ORDERED: FLEET OIL RETENTION ENEMA PR PRN (06:30)
--- NOTE | 2020-01-07 06:38 | REPVR ---
PROCEDURE INFORMATION: Exam: XR Abdomen, 1 View Exam date and time: 01/07/2020 6:15 AM Age: 49 years old Clinical indication: Other: Pain; Additional info: Abd pain TECHNIQUE: Imaging protocol: XR of the abdomen. Views: Frontal supine view of the abdomen. 1 View. COMPARISON: CT ABD/PEL W/IV CONTRAST ONLY 12/31/2019 8:45 AM FINDINGS: Pleural space: There is a pigtail catheter in the inferior right pleural space. Gastrointestinal tract: There is no dilation of the small or large bowel. Vasculature: Atherosclerotic changes are present in the abdominal aorta and the iliac arteries. Bones/joints: Unremarkable. Soft tissues: There are multiple overlying lines. Round metallic structures in the upper abdomen are presumably outside of the patient. IMPRESSION: Unremarkable bowel gas pattern. Electronically signed by: Nilsa Reynolds On 01/07/2020 06:38:42 AM
[2020-01-07] MEDS: DOCUSATE SODIUM 100 MG CAP PO SCH ×2 (06:41→20:42)
[2020-01-07] MEDS: LEVOTHYROXINE 150MCG TABLET (0.15MG) PO SCH (06:42)
[2020-01-07 06:46] LABS: MAGNESIUM LEVEL 2.4 MG/DL (1.8-2.4); PHOSPHORUS LEVEL 5.9 MG/DL (2.5-4.9)
[2020-01-07] MEDS ORDERED: NOREPINEPHRINE 4 MG/4 ML AMP As Ordered ONE (06:59)
[2020-01-07] MEDS ORDERED: LACTULOSE 20 GM/30 ML SYRUP UD PO ONE (07:00)
[2020-01-07] MEDS: NOREPINEPHRINE BITARTRATE 8 MG in D5W 492 ML IV SCH ×2 (07:06→19:00)
[2020-01-07] MEDS: HumaLOG INSULIN (NovoLOG) PER UNIT SC SCH ×4 (07:30→20:42)
[2020-01-07] MEDS: MIDODRINE 5 MG TAB PO SCH ×3 (08:00→16:00)
[2020-01-07 08:43] LABS: VENOUS BASE EXCESS -7.5 (-2.0-2.0); VENOUS HCO3 19.4 MEQ/L (23.0-27.0); VENOUS O2 SATURATION 85.5 % (60.0-80.0); VENOUS PARTIAL PRESSURE CO2 44.6 mmHg (38.0-50.0); VENOUS PARTIAL PRESSURE O2 63.8 mmHg (30.0-50.0); VENOUS PH 7.256 UNITS (7.330-7.430); VENOUS STANDARD HCO3 18.2 MEQ/L; VENOUS TOTAL CO2 20.8 MEQ/L (24.0-28.0)
[2020-01-07] MEDS: OMEPRAZOLE 20 MG CAP PO SCH ×2 (09:00→20:43)
[2020-01-07] MEDS: ASPIRIN 81 MG ENTERIC TAB PO SCH (09:00)
[2020-01-07] MEDS ORDERED: MEROPENEM INJ 500 MG in IV 1 EA IV ONE (09:30)
[2020-01-07] MEDS ORDERED: ISOVUE-370 76% 100ML VIAL As Ordered ONE (10:25)
[2020-01-07 10:57] LABS: CK-MB VALUE MASS 16.8 NG/ML (<3.6); MB/CK RELATIVE INDEX 6.29 (< OR =4); TROPONIN I 0.18 NG/ML (< 0.10)
--- NOTE | 2020-01-07 11:13 | REPVR ---
PROCEDURE INFORMATION: Exam: CT Abdomen And Pelvis With Contrast Exam date and time: 01/07/2020 10:36 AM Age: 49 years old Clinical indication: Abdominal pain TECHNIQUE: Imaging protocol: Computed tomography of the abdomen and pelvis with intravenous contrast. Radiation optimization: All CT scans at this facility use at least one of these dose optimization techniques: automated exposure control; mA and/or kV adjustment per patient size (includes targeted exams where dose is matched to clinical indication); or iterative reconstruction. Contrast material: ISOVUE 370; Contrast volume: 100 ml; Contrast route: INTRAVENOUS (IV); COMPARISON: CT ABD/PEL W/IV CONTRAST ONLY 12/31/2019 8:45 AM FINDINGS: Lungs: Bibasilar mild pulmonary subsegmental atelectasis is present. Bilateral posterior pulmonary partial passive atelectasis. Pleural space: Partially loculated gas posterior left pleural space with pleural drain in place. Small right pneumothorax. Liver: The liver measures 19.2 cm in the midclavicular plane. Mild geographic peripheral hyperenhancement of the inferior right lobe of the liver, likely representing transient hepatic arterial phase difference. Gallbladder and bile ducts: A few dependent small gallstones are noted posteriorly in the contracted gallbladder. Mild-moderate gallbladder wall thickening. No definite pericholecystic fluid identified. Pancreas: Pancreatic head and uncinate process edema. Thickening of the anterior Gerota fascia is present bilaterally. No pancreatic ductal dilatation. Spleen: Normal. No splenomegaly. Adrenals: Normal. No mass. Kidneys and ureters: Normal. No hydronephrosis. Stomach and bowel: Edema involving the second and proximal third portion of the duodenum, felt to be secondary. Sigmoid and distal descending colonic diverticula are present without evidence of diverticulitis. Appendix: No evidence of appendicitis. Intraperitoneal space: Mild abdominal, moderate pelvic ascites. Vasculature: There is no peripancreatic arterial pseudoaneurysm identified. Moderate aortic atherosclerotic calcification without aneurysm. The iliac arteries show moderate bilateral atherosclerotic calcifications without evidence of aneurysm. Asymmetric early arterial density enhancement of the right superficial femoral, common femoral and iliac veins, presumably right lower extremity venous contrast injection. Lymph nodes: No enlarged lymph nodes. Urinary bladder: The urinary bladder is decompressed and difficult to assess. Reproductive: The uterus is status post hysterectomy. The ovaries are not identified. Bones/joints: Unremarkable. No acute fracture. Soft tissues: Right posterolateral lower chest wall soft tissue emphysema. Moderate-severe anasarca. IMPRESSION: 1. Pancreatitis. Serologic correlation recommended. 2. Mild hepatomegaly. 3. Cholelithiasis. 4. Gallbladder wall thickening. This may be due to hypoproteinemia, if present. 5. Mild abdominal, moderate pelvic ascites, stable. 6. Prior hysterectomy. 7. Diverticulosis. 8. Please see the CT chest report of the same date for additional findings. Electronically signed by: Jaret Lee On 01/07/2020 11:13:26 AM
--- NOTE | 2020-01-07 11:18 | REPVR ---
PROCEDURE INFORMATION: Exam: CT Chest With Contrast Exam date and time: 01/07/2020 10:36 AM Age: 49 years old Clinical indication: Shortness of breath and other: Hypotension; Additional info: SOB / hypotension TECHNIQUE: Imaging protocol: Computed tomography of the chest with intravenous contrast. Radiation optimization: All CT scans at this facility use at least one of these dose optimization techniques: automated exposure control; mA and/or kV adjustment per patient size (includes targeted exams where dose is matched to clinical indication); or iterative reconstruction. Contrast material: ISOVUE 370; Contrast volume: 100 ml; Contrast route: INTRAVENOUS (IV); COMPARISON: CT ANGIO CHEST 12/31/2019 8:45 AM FINDINGS: Tubes, catheters and devices: Right posterior lower chest pleural drain. Thyroid: The bilateral thyroid lobes are unremarkable. Lungs: Bibasilar mild pulmonary subsegmental atelectasis is present. Bibasilar mild pulmonary subsegmental atelectasis is present. Pleural space: Small right pneumothorax. Loculated gas in the posteromedial lower right pleural space. Otherwise interval evacuation of previous large right pleural effusion. Decreased small left pleural effusion. Heart: Left main, LAD, LCx and RCA calcified coronary atherosclerosis. Pulmonary arteries: No pulmonary embolism identified. Aorta: Mild aortic arch, branch, and descending thoracic aortic atherosclerotic calcification without ectasia. Lymph nodes: No enlarged lymph nodes. Bones/joints: No acute abnormality. No acute fracture. Soft tissues: Benign left breast macrocalcification. Right posterolateral lower chest wall soft tissue emphysema. Moderate anasarca. IMPRESSION: 1. Right posterior lower chest pleural drain. 2. Small right pneumothorax. 3. Loculated gas in the posteromedial lower right pleural space, without parietal pleural thickening/fluid to suggest empyema. 4. Interval evacuation of previous large right pleural effusion. 5. Decreased small left pleural effusion. 6. Coronary atherosclerosis. 7. Please see the abdomen/pelvis CT report of the same date for additional findings. Electronically signed by: Jaret Lee On 01/07/2020 11:18:17 AM
[2020-01-07] MEDS: methylPREDNISolone 40MG 1ML VIAL IV SCH (11:47)
--- NOTE | 2020-01-07 12:06 | IPNPDOC ---
Date Seen The patient was seen on 01/07/20. Progress Note SUBJECTIVE: Patient is a 49-year-old female with a history of ESRD on HD, PVD, IDDM with neuropathy, hypothyroidism, history of CAD s/p prior PCI, hx of pericardiocentesis (2015), who was admitted to the hospital for progressive dyspnea with right lower lobe segmental pulmonary embolism 7 days ago. She presents to the ICU on Hospital Day 8, due to ongoing episodes of hypotension during her hospital course. She had an event overnight 01/07/2020 at 0515 with AMS and MAP <65. After administration of Narcan, midodrine, and NE, her hypotension resolved and etiology for her shock is being evaluated. Patient is able to converse today, although she is drowsy and has altered mental status. She is complaining of hearing ringing in her ears. OBJECTIVE PHYSICAL EXAMINATION: VITAL SIGNS: Please see below. GENERAL: pt appears to be in mild discomfort, drowsy, but is cooperative and roger bally responsive. Pt appears to be older than documented age. HEENT: normocephalic, atraumatic, pupils not significantly reactive to light, EOMs intact, maxillary teeth not present, mandibular teeth, front two are missing. Moist mucous membranes. CARDIOVASCULAR: RRR, no murmurs, rubs, gallops. Capillary refill intact (checked on hallux bilaterally). RESPIRATORY: diffuse pulmonary crackles heard, most prominent in the right lower lobar region with diminished bronchophony, there is a chest tube draining some yellow fluid from her R chest, 1 mL drained since 0600 (as of 1125). The chest tube insertion site is clean and dry without erythematous changes. ABDOMINAL: bowel sounds present, soft, nontender, no significant distention. Pt had a soft BM before physical exam at (1120). No guarding or rigidity present. No hepatosplenomegaly appreciated. EXTREMITIES: Upper extremities: nonpruritic hemosiderin-staining of distal lower extremities due to chronic venous stasis, brown pigmentation of bilateral dorsal side of distal upper extremities. 1+ pitting edema of the lower extremities up to the patella. Pedal pulses intact, 3/4 PSYCHOLOGICAL: AMS, pt verbally responsive, drowsy LABORATORY DATA, IMAGING STUDIES, MICROBIOLOGY: Please see below. Echocardiogram: results pending. DVT prophylaxis ordered: currently holding heparin due to increased aPTT. ASSESSMENT AND PLAN: This is a 49-year-old female with a history of ESRD on HD, PVD, IDDM with neuropathy, hypothyroidism, history of CAD s/p prior PCI, hx of pericardiocentesis (2016), who was admitted to the hospital for prog ressive dyspnea with right lower lobe segmental pulmonary embolism 7 days ago. She presents to the ICU on Hospital Day 8, due to ongoing episodes of hypotension during her hospital course. She had an event overnight 01/07/2020 at 0515 with AMS and MAP <65. The etiology of her shock is being evaluated. PROBLEMS: 1. Neurology: Pt has AMS related to possible metabolic encephalopathic etiologies from medications and hypotensive episodes. Her mentation has improved with Narcan and is able to converse. Hold opioids and Benzodiazepines. Continue to monitor. 2. Cardiology: Pt's systolic BP has improved on NE, in the 100s. Continue NE. Possible obstructive shock etiology for shock evaluated. Stat echo results pending (to rule out pericardial effusion/cardiac tamponade as reasons for shock). Also, since pt is on heparin drip and aPTT values are supratherapeutic, hemopericardium needs to be ruled out. Other possibility is sepsis, patient c/o abdominal pain and is immunocompromised with her chronic ESRD. Pt's rhythm strip elicited Wenckebach rhythm (strip obtained during overnight event), possibly due to vagal response (pt has been constipated). Continue telemetry. Lactic acid is above normal (7.4), troponin is slightly elevated at 0.16 (01/07/20 0500) and 0.18 (01/07/2020 1000), trend lactic acid and troponin levels. Central Venous Catheter placed by Dr. Landeros. ARROW multilumen catheter utilized, placed via Seldinger technique. No adverse events occurred during placement. 3. Pulmonology: Pt's admission to the hospital was due to progressive dyspnea with pleural effusions. The chest tube was placed in the right pleural cavity by Dr. Lopez on 12/31/2019. Dr. Lopez continues to monitor the pt's status. Her dyspnea is improving and Oxygen can be weaned off slowly as tolerated. She is currently on room air. VBG obtained showed metabolic acidosis with inappropriate respiratory acidosis. Repeat CXR shows resolution of right pleural effusions. Left costophrenic angle is blunted with cephalization bilaterally, indicating small left pleural effusion and pulmonary vascular congestion. 4. Infectious Disease: Septic shock possible etiology for shock. Empiric abx with meropenem started. Pt is immunocompromised due to her ESRD. Blood cultures ordered and CT C/A/P for evaluation 5. GI: Pt continues to complain of abdominal discomfort. Transaminitis is evident on laboratory values, possibly due to hepatic congestion or shock liver given hypotension. Liver US showed cholelithiasis but equivicable for cholecystitis. Continue to monitor LFTs. CT chest, abdomen, pelvis, has been ordered, results pending. 6. Renal/Endocrine: Continue levothyroxine administration for hypothyroidism. Patient is ESRD on HD. Hemodialysis is being held due to her shock today. Has been on midodrine chronically for her baseline borderline hypotension. Monitor hyperkalemia and hyperphosphatemia (mild and related to renal disease). 7. Hematology: Patient on heparin for acute PE. aPTT levels are 161.7 and high. Continue to monitor. Heparin drip is being held with repeat PTT pending. Will continue to monitor PTT and adjust heparin drip accordingly. Pt is mildly thrombocytopenic. Continue to monitor platelet levels. 8. ENT: Pt continues to have tinnitus. Switch to solumedrol, taper down dose: 40mg for 5 days, 30mg for 5 days, and 20mg for 5 days. ENT was previously consulted Code Status: Full code VS, I&O, 24H, Fishbone Vital Signs/I&O Vital Signs Date Time Temp Pulse Resp B/P (MAP) Pulse Ox O2 Delivery O2 Flow Rate FiO2 01/07/20 07:06 71/48 01/07/20 07:00 78 100 Nasal Cannula 4.0 01/07/20 04:00 97.0 16 I&O- Last 24 Hours up to 6 AM 01/07/20 06:00 Intake Total 395 ml Output Total 1220 ml Balance -825 ml Laboratory Data 24H LABS Laboratory Tests 2 01/06/20 11:38: Bedside Glucose (Misc Panel) 182H 01/06/20 18:11: Bedside Glucose (Misc Panel) 165H 01/06/20 20:31: Bedside Glucose (Misc Panel) 158H 01/06/20 23:44: Bedside Glucose (Misc Panel) 151H 01/07/20 04:56: Immature Granulocyte % (Auto) 1.2, Neutrophils (%) (Auto) 78.1H, Lymphocytes (%) (Auto) 12.7L, Monocytes (%) (Auto) 7.9H, Eosinophils (%) (Auto) 0.0, Basophils (%) (Auto) 0.1, Neutrophils # (Auto) 7.3, Lymphocytes # (Auto) 1.2L, Monocytes # (Auto) 0.7, Eosinophils # (Auto) 0.0, Basophils # (Auto) 0.0, Immature Granulocyte # (Auto) 0.1H, Nucleated Red Blood Cells % (auto) 3.3H, Neutrophils 85H, Lymphocytes (Manual) 15L, Red Blood Cell Morphology NORMAL, Platelet Estimate NORMAL, Prothrombin Time 20.9H, Prothromb Time International Ratio 1.75, Activated Partial Thromboplast Time 161.7*H, Anion Gap 13, Glomerular Filtration Rate 15.1L, Calcium Level 9.2, Phosphorus Level 5.9H, Magnesium Level 2.4, Total Bilirubin 1.5H, Aspartate Amino Transf (AST/SGOT) 263H, Alanine Aminotransferase (ALT/SGPT) 193H, Alkaline Phosphatase 155H, Total Creatine Kinase 141, Creatine Kinase MB 12.9H, Creatine Kinase MB Relative Index 9.15H, Troponin I 0.16H, Total Protein 7.6, Albumin 3.1L, Albumin/Globulin Ratio 0.7L 01/07/20 05:14: Bedside Glucose (Misc Panel) 168H 01/07/20 05:32: Blood Gas Puncture Site UNKNOWN, Blood Gas Bicarbonate Standard 17.6, Venous Blood pH 7.257L, Venous Blood Partial Pressure CO2 41.3, Venous Blood Partial Pressure O2 172.4H, Venous Blood Total Carbon Dioxide 19.3L, Venous Blood HCO3 18.0L, Venous Blood Oxygen Saturation 99.4H, Venous Blood Base Excess -8.6L 01/07/20 07:41: Lactic Acid Level 7.4*H 01/07/20 08:36: Blood Gas Bicarbonate Standard 18.2, Venous Blood pH 7.256L, Venous Blood Partial Pressure CO2 44.6, Venous Blood Partial Pressure O2 63.8H, Venous Blood Total Carbon Dioxide 20.8L, Venous Blood HCO3 19.4L, Venous Blood Oxygen Saturation 85.5H, Venous Blood Base Excess -7.5L 01/07/20 10:02: Activated Partial Thromboplast Time 32.2 CBC/BMP Laboratory Tests 01/07/20 04:56 Microbiology Microbiology 01/07/20 Blood Culture, Received Pending 01/05/20 Stool Occult Blood (FERNANDO) - Final, Complete 01/01/20 Acid Fast Stain, Received Pending 01/01/20 Mycobacterial Culture, Received Pending 01/01/20 Fungal Smear, Received Pending 01/01/20 Fungal Culture, Received Pending 01/01/20 Gram Stain - Final, Complete 01/01/20 Anaerobic Culture - Final, Complete 01/01/20 Body Fluid Culture - Final, Complete 01/01/20 Stool Occult Blood (FERNANDO) - Final, Complete GME ATTESTATION GME ATTESTATION My faculty preceptor for this patient encounter was physically present during the encounter and was fully available. All aspects of the patient interview, examination, medical decision making process, and medical care plan development were reviewed and approved by the faculty preceptor. The faculty preceptor is aware and concurs with the plan as stated in the body of this note and will attest to such by his/her cosignature. ATTENDING NOTE Total critical care time spent not including procedures approx 45 mins IDash, have conducted an independent examination of the patient and agree with the above plan as detailed by resident and discussed during rounds. Froy Mcdaniel DO Jan 07, 2020 12:05 DASH LANDEROS MD Jan 08, 2020 13:01
[2020-01-07 13:45] LABS: AMYLASE 29 U/L (25-115); LIPASE 41 U/L (73-393)
[2020-01-07] MEDS ORDERED: MEROPENEM INJ 1 GM in IV 1 EA IV ONE (14:00)
[2020-01-07] MEDS: ACETAMINOPHEN TAB 650MG DOSE (2X325MG) PO PRN (15:24)
--- NOTE | 2020-01-07 17:43 | IPNPDOC ---
Date Seen The patient was seen on 01/07/20. Progress Note SUBJECTIVE: Subha was seen and examined this morning by the hospital service while lying in bed. She experienced multiple issues overnight. She was becoming more hypotensive from her baseline and did not respond to an extra midodrine dose nor 500 cc bolus. She eventually became unresponsive and a max cart was called at 0515; at which point she was breathing at 6 breaths per minute and her MAP had fallen below 65. Bag mask ventilation was started and she was given 2 doses of Narcan. After second Narcan dose, she awoke but remained critically hypotensive and the clerk of scales team was called to place a central line. Once triple lumen was in, levophed was started and her hypotension resolved. An ABG could not be obtained, and a VBG showed metabolic acidosis with inadequate respiratory respo nse. She did undergo a second consecutive day of hemodialysis yesterday, and 1 L was removed. Nephrology had planned to dialyze again today, but in light of aforementioned overnight events, dialysis will not done. She reports an improvement in her tinnitus this morning, and denies fever, chest pain, palpitations, shortness of breath, nausea, or vomiting. She did have a BM after a mineral oil enema was given overnight. OBJECTIVE PHYSICAL EXAMINATION: VITAL SIGNS: Please see below. GENERAL APPEARANCE: Drowsy female laying in bed, yet is A & O x3 and responds appropriately to questions and commands. Appears older than stated age. Right-sided chest tube remains in place. Triple lumen catheter in place, right IJ. HEENT: Normocephalic, atraumatic. Mild scleral icterus and conjunctival pallor. Pupils continue to not significantly react to light stimulus, as witnessed on prior days. Left eye pterygium present. Moist mucous membranes. NECK: Triple lumen catheter present in right IJ. Supple with no thyromegaly, lymphadenopathy, or JVD. RESPIRATORY: Diffuse crackles remain present on right side posteriorly, with left sided crackles present, but less prominent than on prior exams. Symmetric chest expansion with diminished tidal volume. Breathing room air. Speaking full sentences. There is a chest tube catheter in place that is draining elvin- colored fluid. Approximately 40 cc of fluid has drained over the past 6 hours. Bandage present over catheter insertion sight and skin surrounding bandage is not erythematous, indurated, or warm. CARDIOVASCULAR: Regular rate, regular rhythm. Normal S1, S2. No murmurs, rubs or gallops appreciated. On telemetry and receiving norepinephrine IV. ABDOMEN: Obese. Soft, moderate tenderness of BRETT and LL quadrants. No significant distention. Hypoactive bowel sounds. No guarding or rigidity appreciated. No significant hepatomegaly appreciated. EXTREMITIES: 1-2+ bilateral LE pitting edema with chronic venous stasis changes bilaterally. IV present on right wrist with overlying plastic IV guard. There is some bruising and petechiae of bilateral dorsal forearms. NEUROLOGICAL: Drowsy, yet alert and oriented 3. She responds appropriately to all questions and commands. Decreased sensation to light touch of bilateral lower extremities that is similar to previous days. Non-dysarthric speech. PSYCHIATRIC: Mood and affect appear appropriate LABORATORY DATA, IMAGING STUDIES, MICROBIOLOGY: Please see below. Echocardiogram: STAT echo performed this morning (01/05), results pending DVT prophylaxis ordered: Heparin gtt currently being held as pt's PTT is supratherapeutic ASSESSMENT AND PLAN: 49yo female with h/o ESRD on HD, PVD, DM w/ neuropathy, hypothyroidism, h/o CAD s/p prior pci with stent placement admitted on 12/30 for progressive dyspnea and found to have RLL PE, Rt sided pleural effusion s/p chest tube, chronic pericardial effusion, hypotension and electrolyte abnormalities. Initially admitted with ICU status, improved to PCU status, but due to 01/05-01/06 overnight ams and critical hypotension and septic shock, switched back to ICU designation. 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 of pain medications and home rozerem, as well as septic shock -mentation improved after Narcan x2 -all opioid and benzodiazepine meds held; only tylenol now on board for pain # shock - possibly 2/2 obstructive shock, possibly 2/2 septic shock, -likely cardiogenic in nature due to demand ischemia from cor pulmonale in setting of COPD and pulmonary hypertension since lactic acid levels improved w ith levophed and improved circulation -STAT echo was ordered this morning to assess if pericardial effusion was causing cardiac tamponade -prophylactic meropenem given with central line placement and in setting of immunosuppression from po prednisone -CT chest and CT abdomen/pelvis with contrast were ordered #Elevated lactic acid -initial level today was 7; after resolution of hypotension with levophed, levels improved to 4; likely result of hypoperfusion from significant right-side heart failure as discussed above #RLL PE -PTT levels were supratherapeutic today and heparin is being held as a result -CT chest with contrast was ordered after septic shock - Plan to transition to Eliquis after drainage chest tube removed #B/l pleural effusions with possible empyema on imaging -likely not an empyema, but rather air is result of chest tube placement -imaging today shows improvement in both effusions -chest tube is draining about 40-60 cc per hour (a decrease from previous days) and was planned to be removed today, but due to overnight events, it will remain in place -we appreciate continued input from Dr. Lopez #Possible pancreatitis on imaging -CT abdomen and pelvis today showed pancreatitis -pt has moderate left sided abominal discomfort, but not specific epigastric pain -amylase and lipase ordered, which were unremarkable -due to ESRD, heavy fluids contraindicated #Small right-sided pneumothorax -We will monitor via surveillance imaging to see if this persists after chest tube is removed. Should it persist post-removal, while adminster supplemental O2 to patient. #ESRD on HD ([id number]) with anuria -Underwent 2nd straight day of HD yesterday, with 1 L removed -HD was planned for today, but will not occur due to overnight events -still above her dry weight and with peripheral edema #Transaminitis -likely the result of hepatic congestion from right heart failure and cholelithiasis -holding home statin -trending LFTs #Thrombocytopenia -likely due to hepatomegaly and hepatic congestion related issues -monitoring CBC #Electrolyte abnormalities -sK has returned to NL limits and sNa continues to improve after 2 straight days of HD #Pericardial effusion -stable and noted to have improved since April 2019 -stat echo ordered to assess for possible tamponade this morning #Tinnitus -improved this morning per patient -po prednisone switched to solumedrol with taper -meropenem given in setting of immunosupression from porednisone #History of Hypothyroidism -Home levothyroxine was continued upon admission. After refusing administration yesterday morning, patient did receive her daily dose this morning -discussed her unremarkable thyroid panel results with her yesterday and advocated that taking synthroid would be okay #IDDM with peripheral neuropathy -c/w SSI, hypoglycemic protocol, and fsbs achs #Constipation -given mineral oil enema overnight which led to BM and improved abdominal discomfort #History of CAD s/p prior pci with stent placement -c/w statin and asa #DVT prophylaxis: IV heparin for PE DISPOSITION: Back to ICU status due to overnight events VS, I&O, 24H, Fishbone Vital Signs/I&O Vital Signs Date Time Temp Pulse Resp B/P (MAP) Pulse Ox O2 Delivery O2 Flow Rate FiO2 01/07/20 15:32 98.3 75 12 103/60 (74) 95 Room Air 01/07/20 08:00 4.0 I&O- Last 24 Hours up to 6 AM 01/07/20 06:00 Intake Total 395 ml Output Total 1220 ml Balance -825 ml Laboratory Data 24H LABS Laboratory Tests 2 01/06/20 18:11: Bedside Glucose (Misc Panel) 165H 01/06/20 20:31: Bedside Glucose (Misc Panel) 158H 01/06/20 23:44: Bedside Glucose (Misc Panel) 151H 01/07/20 04:56: Immature Granulocyte % (Auto) 1.2, Neutrophils (%) (Auto) 78.1H, Lymphocytes (%) (Auto) 12.7L, Monocytes (%) (Auto) 7.9H, Eosinophils (%) (Auto) 0.0, Basophils (%) (Auto) 0.1, Neutrophils # (Auto) 7.3, Lymphocytes # (Auto) 1.2L, Monocytes # (Auto) 0.7, Eosinophils # (Auto) 0.0, Basophils # (Auto) 0.0, Immature G ranulocyte # (Auto) 0.1H, Nucleated Red Blood Cells % (auto) 3.3H, Neutrophils 85H, Lymphocytes (Manual) 15L, Red Blood Cell Morphology NORMAL, Platelet Estimate NORMAL, Prothrombin Time 20.9H, Prothromb Time International Ratio 1.75, Activated Partial Thromboplast Time 161.7*H, Anion Gap 13, Glomerular Filtration Rate 15.1L, Calcium Level 9.2, Phosphorus Level 5.9H, Magnesium Level 2.4, Total Bilirubin 1.5H, Aspartate Amino Transf (AST/SGOT) 263H, Alanine Aminotransferase (ALT/SGPT) 193H, Alkaline Phosphatase 155H, Total Creatine Kinase 141, Creatine Kinase MB 12.9H, Creatine Kinase MB Relative Index 9.15H, Troponin I 0.16H, Total Protein 7.6, Albumin 3.1L, Albumin/Globulin Ratio 0.7L 01/07/20 05:14: Bedside Glucose (Misc Panel) 168H 01/07/20 05:32: Blood Gas Puncture Site UNKNOWN, Blood Gas Bicarbonate Standard 17.6, Venous Blood pH 7.257L, Venous Blood Partial Pressure CO2 41.3, Venous Blood Partial Pressure O2 172.4H, Venous Blood Total Carbon Dioxide 19.3L, Venous Blood HCO3 18.0L, Venous Blood Oxygen Saturation 99.4H, Venous Blood Base Excess -8.6L 01/07/20 07:41: Lactic Acid Level 7.4*H 01/07/20 08:36: Blood Gas Bicarbonate Standard 18.2, Venous Blood pH 7.256L, Venous Blood Partial Pressure CO2 44.6, Venous Blood Partial Pressure O2 63.8H, Venous Blood Total Carbon Dioxide 20.8L, Venous Blood HCO3 19.4L, Venous Blood Oxygen Saturation 85.5H, Venous Blood Base Excess -7.5L 01/07/20 10:02: Activated Partial Thromboplast Time 32.2, Total Creatine Kinase 267#H, Creatine Kinase MB 16.8H, Creatine Kinase MB Relative Index 6.29H, Troponin I 0.18H 01/07/20 11:27: Bedside Glucose (Misc Panel) 197H 01/07/20 12:10: Lactic Acid Followup at 4 Hours 4.2*H 01/07/20 12:56: Amylase Level 29, Lipase 41L CBC/BMP Laboratory Tests 01/07/20 04:56 Microbiology Microbiology 01/07/20 Gram Stain, Received Pending 01/07/20 Blood Culture, Received Pending 01/07/20 Stool Occult Blood (FERNANDO) - Final, Complete 01/07/20 Blood Culture, Received Pending 01/05/20 Stool Occult Blood (FERNANDO) - Final, Complete 01/01/20 Acid Fast Stain, Received Pending 01/01/20 Mycobacterial Culture, Received Pending 01/01/20 Fungal Smear, Received Pending 01/01/20 Fungal Culture, Received Pending 01/01/20 Gram Stain - Final, Complete 01/01/20 Anaerobic Culture - Final, Complete 01/01/20 Body Fluid Culture - Final, Complete 01/01/20 Stool Occult Blood (FERNANDO) - Final, Complete GME ATTESTATION GME ATTESTATION My faculty preceptor for this patient encounter was physically present during the encounter and was fully available. All aspects of the patient interview, examination, medical decision making process, and medical care plan development were reviewed and approved by the faculty preceptor. The faculty preceptor is aware and concurs with the plan as stated in the body of this note and will attest to such by his/her cosignature. ATTENDING NOTE I, Pedrito Albarado, have independently examined this patient and performed my own physical exam, as well as reviewed the documentation and edited where necessary. I have discussed in detail with the resident / student the findings and plan of treatment as documented by the resident / student and edited their note. I agree with their findings and treatment plan and have edited their documentation. I will continue to follow the patient during this hospital stay. GARRISON SAUNDERS D.O. Jan 07, 2020 17:43 PEDRITO ALBARADO MD Jan 08, 2020 10:03
[2020-01-08] VITALS (17 sets, daily range): BP systolic 90–107; BP diastolic 51–66; O2SAT 96
[2020-01-08] MEDS: LEVALBUTEROL 1.25 MG/0.5 ML CONCENTRATE NEB NEB SCH ×4 (01:47→19:39)
[2020-01-08] MEDS: LEVOTHYROXINE 150MCG TABLET (0.15MG) PO SCH (05:05)
[2020-01-08 05:23] LABS: HEMATOCRIT 37.2 % (36.0-47.0); HEMOGLOBIN 11.3 g/dl (12.0-15.5); MEAN CORPUSCULAR HEMOGLOBIN 32.3 pg (27.0-33.0); MEAN CORPUSCULAR HGB CONC 30.4 g/dl (32.0-36.5); MEAN CORPUSCULAR VOLUME 106.3 fl (80.0-96.0); WHITE BLOOD COUNT 7.8 10^3/uL (4.0-10.0)
[2020-01-08 05:34] LABS: PLATELET COUNT, AUTOMATED 83 10^3/uL (150-450)
[2020-01-08 05:51] LABS: CALCIUM LEVEL 8.8 MG/DL (8.5-10.1); CREATININE FOR GFR 4.55 MG/DL (0.55-1.30); POTASSIUM SERUM 5.5 MEQ/L (3.5-5.1)
--- NOTE | 2020-01-08 05:57 | ECGEPIP ---
[facility] Test Date: 2020-01-07 Pat Name: MARINA WHITE Department: Room: [place] [address] Gender: Female [employer]: : 1970 Requested By: DERRICK TOLEDO Order Number: [id number] Reading MD: Beto Aleman Measurements Intervals [place] Rate: 83 P: 76 UT: 143 QRS: 96 QRSD: 92 T: 123 QT: 346 QTc: 408 Interpretive Statements Normal sinus rhythm Probable left and right atrial enlargement Vertical axis Low QRS complex voltage in the limb leads Incomplete right bundle branch block Nonspecific ST-T wave abnormalities Consider pulmonary disease No significant change since prior tracing of 12/31/2019 Electronically Signed on 01-08-2020 5:57:01 EDT by Beto Aleman
[2020-01-08 06:32] LABS: INR 1.9; PROTHROMBIN TIME 22.3 SECONDS (12.5-14.3)
[2020-01-08 06:55] LABS: PARTIAL THROMBOPLASTIN TIME 77.6 SECONDS (24.2-38.5)
[2020-01-08] MEDS: HumaLOG INSULIN (NovoLOG) PER UNIT SC SCH ×4 (08:47→20:45)
[2020-01-08] MEDS: OMEPRAZOLE 20 MG CAP PO SCH ×2 (08:48→20:37)
[2020-01-08] MEDS: DOCUSATE SODIUM 100 MG CAP PO SCH ×2 (08:48→20:37)
[2020-01-08] MEDS: MIDODRINE 5 MG TAB PO SCH ×3 (08:48→18:27)
[2020-01-08] MEDS: ASPIRIN 81 MG ENTERIC TAB PO SCH (08:48)
[2020-01-08] MEDS: methylPREDNISolone 40MG 1ML VIAL IV SCH (08:48)
--- NOTE | 2020-01-08 10:07 | REPVR ---
PROCEDURE INFORMATION: Exam: XR Chest, 2 Views Exam date and time: 01/08/2020 6:00 AM Age: 49 years old Clinical indication: Shortness of breath; Additional info: Pleural effusion TECHNIQUE: Imaging protocol: XR of the chest Views: 2 views. COMPARISON: CT Chest with contrast 01/07/2020 10:46 AM FINDINGS: Tubes, catheters and devices: Right jugular central venous catheter with its tip at the cavoatrial junction. Right basilar pigtail chest tube. Overlying EKG leads. Lungs: There is persistent hazy ill-defined opacity at the lung bases which appears unchanged and most consistent with bibasilar atelectasis. Pleural space: Trace right apical pneumothorax which extends laterally. No significant pleural effusion on the right. Small left pleural effusion. Heart/Mediastinum: Cardiomediastinal silhouette is stable. Bones/joints: Bones are stable. Soft tissues: Persistent right chest wall subcutaneous emphysema which appears most pronounced posteriorly on the lateral view. IMPRESSION: 1. Trace right pneumothorax with an indwelling right basilar pigtail chest tube. 2. Stable small left pleural effusion and bibasilar atelectasis. Electronically signed by: Bin Aponte On 01/08/2020 10:06:58 AM
[2020-01-08] MEDS: HEPARIN DRIP 25,000 UNITS in IV 1 EA IV SCH (13:00)
--- NOTE | 2020-01-08 15:01 | IPNPDOC ---
Date Seen The patient was seen on 01/08/20. Progress Note SUBJECTIVE: Patient is a 49-year-old female is seen today 01/08/2020, ICU day 2, Hospital Day 9. There were no overnight events. Nursing staff noted that even after holding Levophed at night, 1830, pt's SBP has been steady in the low 90s, which is baseline for the pt. The pt has no new complaints and states that the only discomfort she has is from the chest tube in the right posterior region. She expresses good appetite and was eating her breakfast during our examination. OBJECTIVE PHYSICAL EXAMINATION: VITAL SIGNS: Please see below. GENERAL: pt is a pleasant female who appears to be older than documented age. She appears to be in no acute distress. She was sitting upright in her chair during the examination and converses with an open and full affect. HEENT: pupils do not react significantly to light, unchanged from yesterday 01/07/2020. CARDIOVASCULAR: RRR, no murmurs, rubs, gallops. capillary refill normal, radial and pedal pulses are +3/4. RESPIRATORY: lungs are CTAB, an improvement from yesterday (01/07/2020), pt had just received a nebulizer treatment prior to exam. ABDOMINAL: BS are present, no pain on palpation, mild distention. EXTREMITIES: no new lesions, bruises. pitting edema of lower extremities up to ankles +1. Radial and pedal pulses +3/4. NEUROLOGICAL: alert and cooperative. LABORATORY DATA, IMAGING STUDIES, MICROBIOLOGY: Please see below. Chest radiograph: Exam date and time: 01/08/2020 6:00 AM IMPRESSION: 1. Trace right pneumothorax with an indwelling right basilar pigtail chest tube. 2. Stable small left pleural effusion and bibasilar atelectasis. Electronically signed by: Bin Aponte On 01/08/2020 10:06:58 AM Echocardiogram: results pending. Fecal occult blood test: positive. 01/07/20 1140 Repeat Fecal Occult Blood test: negative 01/08/20 0530 DVT prophylaxis ordered: IV heparin drip and ASA continued. ASSESSMENT AND PLAN: This is a 49-year-old female with a history of ESRD on HD, PVD, IDDM with neuropathy, hypothyroidism, history of CAD s/p prior PCI, hx of pericardiocentesis (2015), who was admitted to the hospital for progressive dyspnea with right lower lobe segmental pulmonary embolism 7 days ago. She presents to the ICU day #2 on Hospital Day 9, due to ongoing episodes of hypotension during her hospital course. Pt's mental status has improved and is no longer requiring Levophed to maintain normotensive blood pressure. PROBLEMS: 1. Neurology: Pt mentation has improved and she is able to converse and sit up on her own today. Continue to hold opioids and benzodiazepines due to her underlying renal disease and hx of untreated BRENT. Continue to monitor mental status. Continue pain control with Acetaminophen as tolerated. Continue to monitor LFTs. 2. Cardiology: Pt's systolic BP is in the low 90s without NE. Continue midodrine with goal MAP>65. Slightly elevated troponins are possibly associated with pt's renal disease. If pt complains of dyspnea on exertion, chest pain, or develops symptomatic cardiac signs, re-evaluate troponin levels. Continue to monitor pt on telemetry due to recent dysrhythmic episodes. Pt currently RRR. ASA was previously held, and is started again today due to history of cardiovascular disease. 3. Pulmonology: Pt's pulmonary status is much improved. Chest radiograph elicits that there is no longer a right pleural effusion, there is a small pneumothorax, with mild bibasilar atelectasis. Pleural fluid culture was negative for bacteria. On physical exam, pt's pulmonary status is much improved. Dr. Lopez with cardiothoracic surgery is following the pt after placing chest tube. He may evaluate pt to remove chest tube today 01/08/2020. Pt no longer requires oxygen administration during the day. Continue oxygen administration as needed at night, due to history of BRENT with noncompliance with CPAP. 4. Infectious Disease: Pt is currently on broad spectrum antibiotics, with meropenem. Procalcitonin has been ordered to aid in de-escalating antibiotics. Consider de-escalating to ceftriaxone if procalcitonin trends down and blood cultures aid in de-escalation. 5. GI: Pt no longer complains of abdominal discomfort. She exhibits good appetite. Transaminitis is evident on laboratory values, continue to monitor pt's LFTs. Pt had a positive stool occult test yesterday 01/07/20, but pt is currently on anticoagulants. She had no melena and/or hematochezia. Repeat FOBT was negative today 01/08/2020. CT abdomen showed possible pancreatitis with normal amylase and lipase values. Continue to monitor for possible pancreatitis. Continue prilosec, bisacodyl suppository, zofran, and mineral oil for bowel regimen. Continue to monitor pt's bowel status. 6. Renal/Endocrine: Pt has swelling of lower extremities and hyperkalemia. Dialysis was held yesterday due to hypotensive episodes. Consider dialysis today 01/08/2020, appreciate Nephrology's input regarding pt's ESRD on HD. Continue levothyroxine administration for hypothyroidism. 7. Hematology: Patient on heparin for acute PE. aPTT levels are 77.6 01/08/20 0610 and trending down from 125.7 from 01/08/20 0000. Continue to monitor aPTT. Heparin and ASA are currently being administered. Pt is mildly thrombocytopenic. Continue to monitor platelet levels. If platelets <50,000, hold heparin, cons ider IVC filter, consider work up for Heparin-induced thrombocytopenia. 8. ENT: Pt continues to have tinnitus. Continue solumedrol 40mg (01/08/20 is day 2 on 40mg), taper down dose: 40mg for 5 days, 30mg for 5 days, and 20mg for 5 days. ENT was previously consulted. Code Status: Full code I, Dash Boogie, have conducted an independent examination and history of the patient and agree with the plan as detailed by the resident and discussed during rounds. VS, I&O, 24H, Fishbone Vital Signs/I&O Vital Signs Date Time Temp Pulse Resp B/P (MAP) Pulse Ox O2 Delivery O2 Flow Rate FiO2 01/08/20 06:00 68 92/54 (67) 100 Nasal Cannula 2.0 01/08/20 04:00 97.7 14 I&O- Last 24 Hours up to 6 AM 01/08/20 05:59 Intake Total 1021 ml Output Total 161 ml Balance 860 ml Laboratory Data 24H LABS Laboratory Tests 2 01/07/20 17:50: Bedside Glucose (Misc Panel) 182H 01/07/20 17:55: Activated Partial Thromboplast Time 72.5H 01/07/20 20:42: Bedside Glucose (Misc Panel) 203H 01/08/20 00:00: Activated Partial Thromboplast Time 125.7*H 01/08/20 05:10: Nucleated Red Blood Cells % (auto) 2.2H, Immature Platelet Fraction 5.7, Anion Gap 12, Glomerular Filtration Rate 11.0L, Calcium Level 8.8 01/08/20 06:10: Prothrombin Time 22.3H, Prothromb Time International Ratio 1.90, Activated Partial Thromboplast Time 77.6H 01/08/20 11:53: Bedside Glucose (Misc Panel) 231H 01/08/20 12:56: CBC/BMP Laboratory Tests 01/08/20 05:10 Microbiology Microbiology 01/08/20 Stool Occult Blood (FERNANDO) - Final, Complete 01/07/20 Gram Stain - Final, Complete 01/07/20 Blood Culture - Preliminary, Resulted No growth after 24 hours . All specim... 01/07/20 Stool Occult Blood (FERNANDO) - Final, Complete 01/07/20 Blood Culture - Preliminary, Resulted No growth after 24 hours . All specim... 01/05/20 Stool Occult Blood (FERNANDO) - Final, Complete 01/01/20 Acid Fast Stain, Received Pending 01/01/20 Mycobacterial Culture, Received Pending 01/01/20 Fungal Smear, Received Pending 01/01/20 Fungal Culture, Received Pending 01/01/20 Gram Stain - Final, Complete 01/01/20 Anaerobic Culture - Final, Complete 01/01/20 Body Fluid Culture - Final, Complete 01/01/20 Stool Occult Blood (FERNANDO) - Final, Complete Froy Mcdaniel DO Jan 08, 2020 15:01 DASH BOOGIE MD Jan 12, 2020 11:37
--- NOTE | 2020-01-08 15:10 | ECHO ---
DATE OF PROCEDURE: 01/07/2020 Age: 49 Gender: Female Height: 63 inches Weight: 160 pounds Body surface area: 1.76 m2 PATIENT LOCATION: Inpatient progressive care unit (PCU), Room 3210 REFERRING PHYSICIAN: Pedrito Castillo M.D. INDICATION: Dyspnea. MEASUREMENTS: 2D Measurements: RV 4.2 cm LV 4.3 cm Septum 1.3 cm Posterior wall 1.3 cm Aortic Root 3.1 cm LA 4.2 cm LVEF 65% Doppler Measurements: AV 1.13 m/s LVOT 0.8 m/s LVOT diameter 2.0 cm MV-E 86, A 51, E/A ratio 1.7 Early mitral deceleration time 165 m/s E prime medial 9.3, A prime medial 5, E prime lateral 11 Average E/E prime ratio 8.5/PCWP 12.4 mmHg PV 0.9 m/s Pulmonary artery acceleration time 88 m/s RVSP 49 mmHg IVC 2.5 cm COMMENTS: Normal sinus rhythm without evidence for intraventricular conduction disturbance. M-mode and two-dimensional echocardiography was performed with pulsed, continuous wave, color flow, and tissue Doppler studies. Mild concentric left ventricular hypertrophy with normal wall motion. Mildly dilated left atrium with currently normal Doppler assessment of left ventricular diastolic function and estimated mean left atrial pressure. Mildly dilated right heart chambers with normal wall motion and at least moderately elevated pulmonary arterial pressure. Moderately dilated inferior vena cava (IVC) with absent respiratory collapse in keeping with an elevated central venous pressure. Normal aortic root and ascending aortic diameters. Normal appearing and functioning aortic valve. Mild degenerative changes of the mitral valvular apparatus with mild insufficiency. Normal appearing tricuspid valve with moderate insufficiency. Localized posterolateral pericardial effusion measuring 1.2 cm. Miniscule anterior and apical effusion. No intracardiac mass. This patient has had serial echocardiographic studies dating back to at least 02/06/2019. These five studies have been virtually photocopies of each other. There has been no significant change. [facility]
[2020-01-08] MEDS: MEROPENEM INJ 1 GM in IV 1 EA IV SCH (18:27)
--- NOTE | 2020-01-08 20:24 | IPNPDOC ---
Date Seen The patient was seen on 01/08/20. Progress Note SUBJECTIVE: Subha was seen and examined this morning by the hospitalist service while sitting in a chair. She is off the norepinephrine, which was stopped last evening. Her chest tube was removed earlier this morning by Dr. Lopez of cardiothoracic surgery. She is once again receiving IV heparin as her PTT is decreased from yesterday. Nephrology is planning to dialyze her this afternoon as she remains above her dry weight and continues to have pitting edema with hyperkalemia. She is not currently experiencing abdominal pain and tinnitus, and is eating and drinking without any issues. She reports some discomfort at both her triple lumen site in the neck, as well as the former site of the chest tube. She denies any current, or overnight: fever, chills, night sweats, chest pain, palpitations, shortness of breath, nausea, vomiting, or diarrhea. OBJECTIVE PHYSICAL EXAMINATION: VITAL SIGNS: Please see below. GENERAL APPEARANCE: female sitting in a chair. She is much more alert and energetic today versus yesterday. A & O x3. Appears older than stated age. Triple lumen catheter in place, right IJ. HEENT: Normocephalic, atraumatic. Continues to have some scleral icterus, and her pupils remain poorly reactive to light. Pterygium present over medial sclera. Moist mucous membranes. Some lower front teeth absent. NECK: Triple lumen catheter present in right IJ with no active medication running through. Supple with no thyromegaly, lymphadenopathy, or JVD. RESPIRATORY: Rhonchi still present over right posterior chest. Right chest pigtail catheter has been removed and there is bandaging over the site. Some subq air appreciated on palpation of skin surround former insertion site. Symmetric chest expansion with diminished tidal volume. Breathing room air. Speaking full sentences. CARDIOVASCULAR: Regular rate, regular rhythm. Normal S1, S2. No murmurs, rubs or gallops appreciated. On telemetry. ABDOMEN: Obese. Soft, no significant tenderness. No distention. Normoactive bowel sounds. No guarding or rigidity appreciated. No significant hepatomegaly appreciated. Neg HJR. EXTREMITIES: 1-2+ bilateral LE pitting edema with chronic venous stasis changes. There remains some bruising and petechiae of bilateral dorsal forearms. NEUROLOGICAL: More alert than yesterday. Oriented x3. No focal deficits appreciated. Non-dysarthric speech. PSYCHIATRIC: Mood and affect appear appropriate LABORATORY DATA, IMAGING STUDIES, MICROBIOLOGY: Please see below. Echocardiogram: 01/07/2020, Bedside STAT Echo Normal sinus rhythm without evidence for intraventricular conduction disturbance. M-mode and two-dimensional echocardiography was performed with pulsed, continuous wave, color flow, and tissue Doppler studies. Mild concentric left ventricular hypertrophy with normal wall motion. Mildly dilated left atrium with currently normal Doppler assessment of left ventricular diastolic function and estimated mean left atrial pressure. Mildly dilated right heart chambers with normal wall motion and at least moderately elevated pulmonary arterial pressure. Moderately dilated inferior vena cava (IVC) with absent respiratory collapse in keeping with an elevated central venous pressure. Normal aortic root and ascending aortic diameters. Normal appearing and functioning aortic valve. Mild degenerative changes of the mitral valvular apparatus with mild insufficiency. Normal appearing tricuspid valve with moderate insufficiency. Localized posterolateral pericardial effusion measuring 1.2 cm. Miniscule anterior and apical effusion. No intracardiac mass. This patient has had serial echocardiographic studies dating back to at least 02/06/2019. These five studies have been virtually photocopies of each other. There has been no significant change. ASSESSMENT AND PLAN: 49yo female with h/o ESRD on HD, PVD, DM w/ neuropathy, hypothyroidism, h/o CAD s/p prior pci with stent placement admitted on 12/30 for progressive dyspnea and found to have RLL PE, Rt sided pleural effusion s/p chest tube, chronic pericar dial effusion, hypotension and electrolyte abnormalities. Initially admitted with ICU status, improved to PCU status, but due to 01/05-01/06 overnight ams and critical hypotension and septic shock, she was switched back to ICU designation. Levophed was stopped on evening of 01/06, with pressure returning to baseline and switch back to PCU. #RLL Subsegmental PE -PTT levels came down from yesterday and IV heparin was resumed -Plan to transition to Eliquis after drainage chest tube removed -Stool occult was positive yesterday in setting of heparin administration; no recent melena #Left pleural effusion -Dr. Lopez of cardiothoracic surgery removed patient's chest tube this morning -CXR from yesterday showed small left pleural effusion with resolution of right pleural effusion. There is also bibasilar atelectasis. -Pleural fluid gram stain from yesterday showed no growth of organisms; initial fluid analysis from presentation was transudative #Small right-sided pneumothorax -Was present on imaging yesterday. Chest tube was removed this morning. F/u imaging under consideration to assess if it remains post-tube removal. If so, plan is for supplemental O2 to patient. #Hypotension -Norepinephrine was stopped yesterday evening and pressures have been stable for the last 12 hours or so. She remains with systolics in the 90s and MAP around 67 -Continues to receive daily midodrine #ESRD on HD () with anuria -HD was planned for yesterday but was not performed due to hypotension requiring vasopressor -Plan per nephrology is to dialyze the patient this afternoon as her BP has remained at baseline since yesterday evening, she remains above her dry weight, and she is hyperkalemic. 25% albumin will be administered at start of dialysis. #Transaminitis -hepatic congestion from right heart failure and cholelithiasis on imaging likely contributing -continue to hold home statin -trending LFTs #Thrombocytopenia -Mild thrombocytopenia; we'll continue to monitor CBC -We'll likely hold heparin in the setting of platelet count less than 50,000, with consideration for HIT w/u #Electrolyte abnormalities -Hyperkalemic (serum potassium 5.5) and hyponatremia (serum sodium 132), likely worsened versus yesterday. Since she did not receive hemodialysis. Hemodialysis is planned for this afternoon, which should help correct #Pericardial effusion -stable with no significant change as seen on yesterday's stat echo #Tinnitus -Resolved. This morning per patient -po prednisone switched to solumedrol with taper -meropenem given in setting of immunosupression from porednisone #COPD -respiratory status has been stable for roughly last 24 hours -c/w home and prn inhalers #History of Hypothyroidism -Continue with home levothyroxine #IDDM with peripheral neuropathy -c/w SSI, hypoglycemic protocol, and fsbs achs #Constipation -given mineral oil enema overnight which led to BM and improved abdominal discomfort #History of CAD s/p prior pci with stent placement -Statin is being held in the setting of transaminitis. Aspirin was resumed today #DVT prophylaxis: IV heparin for PE DISPOSITION: Pending continued blood pressure stability and tolerance of today's hemodialysis VS, I&O, 24H, Fishbone Vital Signs/I&O Vital Signs Date Time Temp Pulse Resp B/P (MAP) Pulse Ox O2 Delivery O2 Flow Rate FiO2 01/08/20 13:14 98.6 74 20 90/52 (65) 99 Room Air 01/08/20 06:00 2.0 I&O- Last 24 Hours up to 6 AM 01/08/20 06:00 Intake Total 1021 ml Output Total 176 ml Balance 845 ml Laboratory Data 24H LABS Laboratory Tests 2 01/07/20 20:42: Bedside Glucose (Misc Panel) 203H 01/08/20 00:00: Activated Partial Thromboplast Time 125.7*H 01/08/20 05:10: Nucleated Red Blood Cells % (auto) 2.2H, Immature Platelet Fraction 5.7, Anion Gap 12, Glomerular Filtration Rate 11.0L, Calcium Level 8.8 01/08/20 06:10: Activated Partial Thromboplast Time 77.6H, Prothrombin Time 22.3H, Prothromb Time International Ratio 1.90 01/08/20 11:53: Bedside Glucose (Misc Panel) 231H 01/08/20 12:56: Activated Partial Thromboplast Time 73.3H 01/08/20 18:19: Bedside Glucose (Misc Panel) 131H CBC/BMP Laboratory Tests 01/08/20 05:10 Microbiology Microbiology 01/08/20 Stool Occult Blood (FERNANDO) - Final, Complete 01/07/20 Gram Stain - Final, Complete 01/07/20 Blood Culture - Preliminary, Resulted No growth after 24 hours . All specim... 01/07/20 Stool Occult Blood (FERNANDO) - Final, Complete 01/07/20 Blood Culture - Preliminary, Resulted No growth after 24 hours . All specim... 01/05/20 Stool Occult Blood (FERNANDO) - Final, Complete 01/01/20 Acid Fast Stain, Received Pending 01/01/20 Mycobacterial Culture, Received Pending 01/01/20 Fungal Smear, Received Pending 01/01/20 Fungal Culture, Received Pending 01/01/20 Gram Stain - Final, Complete 01/01/20 Anaerobic Culture - Final, Complete 01/01/20 Body Fluid Culture - Final, Complete 01/01/20 Stool Occult Blood (FERNANDO) - Final, Complete GME ATTESTATION GME ATTESTATION My faculty preceptor for this patient encounter was physically present during the encounter and was fully available. All aspects of the patient interview, examination, medical decision making process, and medical care plan development were reviewed and approved by the faculty preceptor. The faculty preceptor is aware and concurs with the plan as stated in the body of this note and will attest to such by his/her cosignature. ATTENDING NOTE I, Pedrito Albarado, have independently examined this patient and performed my own physical exam, as well as reviewed the documentation and edited where necessary. I have discussed in detail with the resident / student the findings and plan of treatment as documented by the resident / student and edited their note. I agree with their findings and treatment plan and have edited their documentation. I will continue to follow the patient during this hospital stay. GARRISON SAUNDERS D.O. Jan 08, 2020 20:24 PEDRITO ALBARADO MD Jan 09, 2020 07:10
[2020-01-08] MEDS: ACETAMINOPHEN TAB 650MG DOSE (2X325MG) PO PRN (23:41)
[2020-01-09] VITALS (12 sets, daily range): BP systolic 93–118; BP diastolic 54–68; O2SAT 79–100
[2020-01-09] MEDS: LEVALBUTEROL 1.25 MG/0.5 ML CONCENTRATE NEB NEB SCH ×4 (00:21→20:21)
[2020-01-09] MEDS: LEVOTHYROXINE 150MCG TABLET (0.15MG) PO SCH (05:16)
[2020-01-09 09:03] LABS: HEMATOCRIT 40.4 % (36.0-47.0); HEMOGLOBIN 12.1 g/dl (12.0-15.5); MEAN CORPUSCULAR HEMOGLOBIN 32.2 pg (27.0-33.0); MEAN CORPUSCULAR VOLUME 107.4 fl (80.0-96.0); RED BLOOD COUNT 3.76 10^6/uL (4.00-5.40)
[2020-01-09 09:05] LABS: ALBUMIN 3.4 GM/DL (3.2-5.2); BILIRUBIN,TOTAL 1.4 MG/DL (0.2-1.0); CALCIUM LEVEL 9.5 MG/DL (8.5-10.1); CREATININE FOR GFR 3.92 MG/DL (0.55-1.30); POTASSIUM SERUM 4.7 MEQ/L (3.5-5.1); TOTAL PROTEIN 7.1 GM/DL (6.4-8.2)
[2020-01-09] MEDS: OMEPRAZOLE 20 MG CAP PO SCH ×2 (09:23→20:37)
[2020-01-09] MEDS: methylPREDNISolone 40MG 1ML VIAL IV SCH (09:23)
[2020-01-09] MEDS: MIDODRINE 5 MG TAB PO SCH ×3 (09:23→17:14)
[2020-01-09] MEDS: ASPIRIN 81 MG ENTERIC TAB PO SCH (09:23)
[2020-01-09] MEDS: HumaLOG INSULIN (NovoLOG) PER UNIT SC SCH ×4 (09:24→20:37)
[2020-01-09] MEDS: ATORVASTATIN 20 MG TAB PO SCH (09:24)
[2020-01-09] MEDS: DOCUSATE SODIUM 100 MG CAP PO SCH ×2 (09:24→20:37)
[2020-01-09 09:57] LABS: PLATELET COUNT, AUTOMATED 73 10^3/uL (150-450)
[2020-01-09] MEDS: APIXABAN 5 MG TAB (ELIQUIS) PO SCH ×2 (11:16→20:37)
[2020-01-09 14:30] LABS: CHOLESTEROL RISK RATIO 1.794 (<5)
[2020-01-09] MEDS: MEROPENEM INJ 1 GM in IV 1 EA IV SCH (17:14)
--- NOTE | 2020-01-09 20:56 | IPNPDOC ---
Date Seen The patient was seen on 01/09/20. Progress Note SUBJECTIVE: Subha was seen and examined this morning by the hospitalist service while sitting in a bedside chair. She reports no problems overnight and tolerated her hemodialysis session yesterday afternoon well. 500 cc of fluid were removed during yesterday's She continues to eat and drink without any issues. OBJECTIVE PHYSICAL EXAMINATION: VITAL SIGNS: Please see below. GENERAL APPEARANCE: female sitting in a chair. Energetic and interactive A & O x3. Appears older than stated age. Triple lumen catheter in place, right IJ. HEENT: Normocephalic, atraumatic. Continues to have some mild scleral icterus, and her pupils remain poorly reactive to light. Pterygium present over medial sclera. Moist mucous membranes. Some lower front teeth absent. NECK: Triple lumen catheter present in right IJ with no active medication running through. Supple with no thyromegaly, lymphadenopathy, or JVD. RESPIRATORY: Moderate end expiratory crackles present over right side posteriorly. Former catheter insertion site is clean, dry, and intact. No longer subq air appreciated around former insertion site. Symmetric chest expansion. Breathing room air. Speaking full sentences. CARDIOVASCULAR: Regular rate, regular rhythm. Normal S1, S2. No murmurs, rubs or gallops appreciated. ABDOMEN: Obese. Soft, no significant tenderness. No distention. Normoactive bowel sounds. No guarding or rigidity appreciated. No significant hepatomegaly appreciated. Neg HJR. EXTREMITIES: 1+ bilateral LE pitting edema with chronic venous stasis changes. Wearing compression. There remains some bruising and petechiae of bilateral dorsal forearms. NEUROLOGICAL: Alert and oriented x3. No focal deficits appreciated. Non- dysarthric speech. PSYCHIATRIC: Mood and affect appear appropriate LABORATORY DATA, IMAGING STUDIES, MICROBIOLOGY: Please see below. ASSESSMENT AND PLAN: 49yo female with h/o ESRD on HD, PVD, DM w/ neuropathy, hypothyroidism, h/o CAD s/p prior pci with stent placement admitted on 12/30 for progressive dyspnea and found to have RLL PE, Rt sided pleural effusion s/p chest tube, chronic per icardial effusion, hypotension and electrolyte abnormalities. Initially admitted with ICU status, improved to PCU status, but due to 01/05-01/06 overnight ams and critical hypotension and septic shock, she was switched back to ICU designation. Levophed was stopped on evening of 01/06, with pressure returning to baseline and switched back to PCU. #RLL Subsegmental PE -IV heparin stopped today and we are commencing loading dose of eliquis (10 mg bid for first 7 days, followed by 5 mg bid) -Stool occult was positive on 01/06 in setting of heparin administration; no recent melena #Left pleural effusion -Dr. Lopez of cardiothoracic surgery removed patient's chest tube yesterday and will be signing off -CXR on 01/06 showed small left pleural effusion with resolution of right pleural effusion. There is also bibasilar atelectasis. -Pleural fluid gram stain from 01/06 showed no growth of organisms; initial fluid analysis from presentation was transudative -Will stop IV antibiotics #Small right-sided pneumothorax -Was present on 01/06 imaging. Chest tube was removed yesterday. F/u imaging u nder consideration to assess if it remains post-tube removal. If so, plan is for supplemental O2 to patient. #Hypotension -Norepinephrine was stopped on 01/06. Pressures have been stable for the last 36 hours. She remains with systolics in the 90s. -Continues to receive daily midodrine #ESRD on HD () with anuria -Underwent regular Mary HD yesterday, with just 500 cc of fluid removed. Pt tolerated well and pressure remained stable overnight -Plan per nephrology is to dialyze the patient again today, and to dialyze once more tomorrow for her regular Sat session. Should pt tolerate next two sessions well, nephrology agreeable to dc tomorrow after HD. 25% albumin will be administ ered again at the start of dialysis. #Transaminitis -hepatic congestion from right heart failure and cholelithiasis on imaging likely contributing factors -continue to hold home statin -trending LFTs #Thrombocytopenia -has dropped progressively over last 48 hours; we'll continue to monitor CBC -We'll likely hold heparin in the setting of platelet count less than 50,000, with consideration for HIT w/u #Electrolyte abnormalities -Hyperkalemia improved after HD yesterday. Mild, stable hyponatremia (serum sodium 133). Hemodialysis again planned for this afternoon #Pericardial effusion -stable with no significant change as evidenced on 01/06 stat echo #Tinnitus -Resolved yesterday morning per patient -40 mg iv solumedrol stopped, starting 20 mg prednisone today -meropenem given in setting of immunosuppression from prednisone #COPD -respiratory status has been stable on room air for about the last 48 hours -c/w home and prn inhalers #History of Hypothyroidism -Continue with home levothyroxine #IDDM with peripheral neuropathy -c/w SSI, hypoglycemic protocol, and fsbs achs #Constipation -c/w medications -has denied abdominal pain on consecutive days #History of CAD s/p prior pci with stent placement -continuing to hold home statin in setting of transaminitis -Aspirin was resumed on 01/07 #DVT prophylaxis: loading dose apixaban for PE DISPOSITION: Pending no issues with tomorrow's HD, likely dc home tomorrow VS, I&O, 24H, Fishbone Vital Signs/I&O Vital Signs Date Time Temp Pulse Resp B/P (MAP) Pulse Ox O2 Delivery O2 Flow Rate FiO2 01/09/20 20:00 97.6 83 16 101/58 (72) 95 Room Air 01/08/20 06:00 2.0 I&O- Last 24 Hours up to 6 AM 01/09/20 05:59 Intake Total 920 ml Output Total 610 ml Balance 310 ml Laboratory Data 24H LABS Laboratory Tests 2 01/09/20 05:15: Nucleated Red Blood Cells % (auto) 3.3H, Immature Platelet Fraction 7.7 01/09/20 05:34: Anion Gap 13, Glomerular Filtration Rate 13.0L, Calcium Level 9.5, Total Bilirubin 1.4H, Aspartate Amino Transf (AST/SGOT) 259H, Alanine Aminotransferase (ALT/SGPT) 224H, Alkaline Phosphatase 141H, Total Protein 7.1, Albumin 3.4, Albumin/Globulin Ratio 0.9L 01/09/20 09:00: Procalcitonin 1.25 01/09/20 09:09: Activated Partial Thromboplast Time 64.5H 01/09/20 11:29: Bedside Glucose (Misc Panel) 188H 01/09/20 17:19: Bedside Glucose (Misc Panel) 112H 01/09/20 20:36: Bedside Glucose (Misc Panel) 118H CBC/BMP Laboratory Tests 01/09/20 05:15 01/09/20 05:34 Microbiology Microbiology 01/08/20 Stool Occult Blood (FERNANDO) - Final, Complete 01/07/20 Gram Stain - Final, Complete 01/07/20 Blood Culture - Preliminary, Resulted No Growth after 48 hours. All Specime... 01/07/20 Stool Occult Blood (FERNANDO) - Final, Complete 01/07/20 Blood Culture - Preliminary, Resulted No Growth after 48 hours. All Specime... 01/05/20 Stool Occult Blood (FERNANDO) - Final, Complete 01/01/20 Acid Fast Stain, Received Pending 01/01/20 Mycobacterial Culture, Received Pending 01/01/20 Fungal Smear, Received Pending 01/01/20 Fungal Culture, Received Pending 01/01/20 Gram Stain - Final, Complete 01/01/20 Anaerobic Culture - Final, Complete 01/01/20 Body Fluid Culture - Final, Complete 01/01/20 Stool Occult Blood (FERNANDO) - Final, Complete GME ATTESTATION GME ATTESTATION My faculty preceptor for this patient encounter was physically present during the encounter and was fully available. All aspects of the patient interview, examination, medical decision making process, and medical care plan development were reviewed and approved by the faculty preceptor. The faculty preceptor is aware and concurs with the plan as stated in the body of this note and will attest to such by his/her cosignature. ATTENDING NOTE I, Pedrito Albarado, have independently examined this patient and performed my own physical exam, as well as reviewed the documentation and edited where necessary. I have discussed in detail with the resident / student the findings and plan of treatment as documented by the resident / student and edited their note. I agree with their findings and treatment plan and have edited their documentation. I will continue to follow the patient during this hospital stay. GARRISON SAUNDERS D.O. Jan 09, 2020 20:56 PEDRITO ALBARADO MD Jan 10, 2020 15:07
[2020-01-10] VITALS: BP 94/52
[2020-01-10] MEDS: LEVALBUTEROL 1.25 MG/0.5 ML CONCENTRATE NEB NEB SCH ×3 (01:53→13:50)
[2020-01-10 04:00] VITALS: BP 93/57
[2020-01-10] MEDS: LEVOTHYROXINE 150MCG TABLET (0.15MG) PO SCH (05:45)
[2020-01-10 06:50] LABS: HEMATOCRIT 38.6 % (36.0-47.0); HEMOGLOBIN 11.6 g/dl (12.0-15.5); MEAN CORPUSCULAR HEMOGLOBIN 32.4 pg (27.0-33.0); MEAN CORPUSCULAR HGB CONC 30.1 g/dl (32.0-36.5); MEAN CORPUSCULAR VOLUME 107.8 fl (80.0-96.0); PLATELET COUNT, AUTOMATED 71 10^3/uL (150-450); RED BLOOD COUNT 3.58 10^6/uL (4.00-5.40); WHITE BLOOD COUNT 9.8 10^3/uL (4.0-10.0)
[2020-01-10 07:18] LABS: CALCIUM LEVEL 9.2 MG/DL (8.5-10.1); CREATININE FOR GFR 3.47 MG/DL (0.55-1.30); POTASSIUM SERUM 4.9 MEQ/L (3.5-5.1)
[2020-01-10 08:00] VITALS: BP 92/51
[2020-01-10] MEDS: ASPIRIN 81 MG ENTERIC TAB PO SCH (08:17)
[2020-01-10] MEDS: OMEPRAZOLE 20 MG CAP PO SCH (08:18)
[2020-01-10] MEDS: HumaLOG INSULIN (NovoLOG) PER UNIT SC SCH ×2 (08:18→12:59)
[2020-01-10] MEDS: MIDODRINE 5 MG TAB PO SCH ×3 (08:19→16:05)
[2020-01-10] MEDS: APIXABAN 5 MG TAB (ELIQUIS) PO SCH (08:19)
[2020-01-10] MEDS: ATORVASTATIN 20 MG TAB PO SCH (08:19)
[2020-01-10] MEDS: DOCUSATE SODIUM 100 MG CAP PO SCH (08:19)
[2020-01-10] MEDS ORDERED: predniSONE 20 MG TAB PO SCH (09:00)
[2020-01-10 12:35] VITALS: BP 95/55
[2020-01-10] MEDS ORDERED: MEROPENEM INJ 500 MG in IV 1 EA IV SCH (14:00)
[2020-01-10] MEDS ORDERED: ELIQ5TAB PO (14:52)
[2020-01-10] MEDS ORDERED: PRED10PA PO (14:52)
[2020-01-10] MEDS ORDERED: MIDO5TA PO (14:52)
[2020-01-10] MEDS ORDERED: PRED20TA PO (14:52)
--- NOTE | 2020-01-10 22:29 | DS.PDOC ---
Discharge Summary General Date of Admission Dec 31, 2019 at 10:26 Date of Discharge January 10, 2020 Attending Physician: PEDRITO CASTILLO MD Specialist/Consultants Involve: Pratik Lopez M.D. Specialist/Consultants Involve Dr. Darcie Mcdaniel and Dr. Camilla Acevedo of nephrology; Dr. Landeros of Pulmonology/Critical Care; Dr. Orlando of ENT Discharge Summary PROCEDURES PERFORMED DURING STAY: -Placement of pigtail catheter chest tube to right thorax, 01/01/20 -Removal of pigtail catheter chest tube, 01/08/20 -Hemodialysis on 12/31, 01/02, 01/04, 01/05, 01/07, 01/08, and 01/09 ADMITTING DIAGNOSES: Progressive shortness of breath. Pulmonary embolism Pericardial effusion Fluid overload End-stage renal disease on hemodialysis for the past 6 years Coronary artery disease status post PCI with stent on isosorbide, aspirin, statin Diabetes with peripheral neuropathy Peripheral vascular disease Hypothyroidism DISCHARGE DIAGNOSES: Progressive shortness of breath. Pulmonary embolism Pericardial effusion. Fluid overload. End-stage renal disease on hemodialysis for the past 6 years. Coronary artery disease status post PCI with stent on isosorbide, aspirin, statin Diabetes with peripheral neuropathy. Peripheral vascular disease Hypothyroidism Hypotension Small right-sided pneumothorax Transaminitis Hyperkalemia Hyponatremia Tinnitus Constipation COMPLICATIONS/CHIEF COMPLAINT: Esrd Pericardial Effusion. HISTORY OF PRESENT ILLNESS: Subha is a 49-year-old female with history of end-stage renal disease secondary to diabetic nephropathy who receives hemodialysis as an outpatient on Sunday, , and Sunday via right thigh fistula and presented to the emergency department on 12/31/19 with progressively increasing shortness of breath over the last week. Last 2 days prior to presentation, she done consecutive days of hemodialysis as a result of her dyspnea and fluid overload. She was able to do less and less in terms of exertion before becoming dyspneic. She had accompanying abdominal bloating and increasing lower extremity edema with some mild chest pain. She has an extensive medical history that includes chronic diastolic congestive heart failure, peripheral vascular disease, diabetes mellitus with neuropathy, coronary artery disease status post stents, chronic anemia, hypothyroidism, and legal blindness. Prior to this emergency room presentation, she just been discharged from [facility] a week prior with the diagnosis of hypotension thought to be secondary to her home antihypertensive medications. As a result those medications had been discontinued on an interim basis. In the emergency room upon presentation on 12/30, a CT abdomen and pelvis and CTA were done which showed subsegmental pulmonary embolism with 1.7 cm maximal pericardial effusion. She was admitted to the ICU for further management and both the nephrology and cardiothoracic surgery services were consulted. HOSPITAL COURSE: A right-sided chest tube was placed on 12/31 to drain the right pleural effusion. She had her regularly scheduled hemodialysis session on 12/31 with just 250 and 100 of fluid removed due to her baseline hypotension. In the setting of hypotension, the nephrology service changed her oral midodrine dosing from 3 days a week on hemodialysis days, to 3 times each day regardless of hemodialysis. She was started on heparin with a bridge to Coumadin for anticoagulation in the setting of the recently diagnosed pulmonary embolism. At the time, novel oral anticoagulants were deferred in favor of a bridge to Couma din due to her end-stage renal disease. From 12/31 through 01/05, her chest tube drained serous fluid at a rate of approximately 250-300 every 6 hours. Study of the fluid showed that it was transudative. She subsequently received hemodialysis on 01/02, 01/04, and 01/05. Over the weekend of , she complained of tinnitus and was evaluated by the ENT service on 01/04, who felt as though she was suffering from an inner ear issue and began administration of oral prednisone at 60 mg with a taper. Hemodialysis had been scheduled for the morning of 01/06, a third consecutive days hemodialysis, but this was not performed as she had extensive overnight issues from 01/05-01/06. She had routinely been at baseline pressures of systolics in the 90s, but early in the evening on 01/05, she was becoming more hypotensive with maps hovering right around 65. Later on in the evening, and max cart was called as the patient became unresponsive. She was unable to be aroused by his sternal rubs and was given 2 doses of Narcan. After second dose of Narcan, patient awoke and continues to have critical hypotension. The altered mental status and unresponsiveness was thought to be secondary to a combination of pain medications (patient had taken [place] and oxycodone earlier that day, as well as her home Rozerem). Due to her persistent significant hypotension, the decision was made to consult the road cutter service, who inserted a triple lumen through a right internal jugular vein early in the morning of 01/06 and began administering norepinephrine. Patient's pressures responded adequately. After norepinephrine administration. She had a significant elevated lactate of 7, which began to decrease over the course the day while on the Levophed drip. At this point multiple imaging series were taken (CT chest, abdomen/pelvis, head), as well as a stat echocardiogram to assess for possible cardiac tamponade in the setting of her known pericardial effusion. No tamponade was observed. She was started by the road cutter on meropenem IV antibiotics every 24 hours in the setting of immunosuppression from the steroids ENT was prescribing as well as for possible infection causing septic shock. The road cutter team also switched her off of the oral prednisone to IV Solu-Medrol with a taper. Ultimately, the shock was thought to be more cardiogenic in nature, as the imaging on the morning of 01/06 revealed right-sided heart failure with pulmonary hypertension. Due to decreased heart function, patient was believed to be suffering from demand ischemia and this is why her lactic improved once the vasopressor was started. The levophed was discontinued on the evening of 01/06, and she returned to her baseline systolic pressures in the 90s for the remainder of the hospital stay. On 01/07, the road cutter service. Switch the patient back to oral prednisone from the Solu-Medrol. After the rate of pleural fluid drainage from the chest tube decreased to roughly 40-50 mL every 6 hours, the cardiothoracic surgery service removed the chest tube on 01/07. Also, the decision was made to stop her Coumadin bridge in favor of switching to oral anticoagulation the form of Eliquis. Before this could be done, her heparin was held for 2 days due to supratherapeutic PTT. Once the PTT returned to therapeutic levels, the IV heparin was restarted and she was then transitioned to Eliquis. 2. End her hospital stay, she had hemodialysis for 3 consecutive days from 01/07-01/09, with significant fluid taken off over the last 2 sessions. She remained at her baseline pressures of 90s systolic and tolerated the sessions well. On 01/09 the meropenem was discontinued, and she was deemed fit for discharge from the nephrology service. The cardiothoracic surgery service saw her on 01/08 and also signed off. On 01/09, a home safety evaluation showed that she was safe to go home with home health services. DISCHARGE MEDICATIONS: Please see below. ALLERGIES: Please see below. PHYSICAL EXAMINATION ON DISCHARGE: VITAL SIGNS: Please see below. GENERAL APPEARANCE: female sitting in a chair. Energetic and interactive A & O x3. Appears older than stated age. Triple lumen catheter in place, right IJ. HEENT: Normocephalic, atraumatic. Continues to have some mild scleral icterus, and her pupils remain poorly reactive to light. Pterygium present over medial sclera. Moist mucous membranes. Some lower front teeth absent. NECK: Triple lumen catheter present in right IJ with no active medication running through. Supple with no thyromegaly, lymphadenopathy, or JVD. RESPIRATORY: Moderate end expiratory crackles present over right side posteriorly. Former catheter insertion site is clean, dry, and intact. No longer subq air appreciated around former insertion site. Symmetric chest expansion. Breathing room air. Speaking full sentences. CARDIOVASCULAR: Regular rate, regular rhythm. Normal S1, S2. No murmurs, rubs or gallops appreciated. ABDOMEN: Obese. Soft, no significant tenderness. No distention. Normoactive b owel sounds. No guarding or rigidity appreciated. No significant hepatomegaly appreciated. Neg HJR. EXTREMITIES: 1+ bilateral LE pitting edema with chronic venous stasis changes. Wearing compression. There remains some bruising and petechiae of bilateral dorsal forearms. NEUROLOGICAL: Alert and oriented x3. No focal deficits appreciated. Non- dysarthric speech. PSYCHIATRIC: Mood and affect appear appropriate LABORATORY DATA: Please see below. IMAGING: Chest Xray, 12/31/2019- Persistent lower lung areas of infiltrate and/or atelectasis with developing interstitial opacity of right upper lobe. Persistent bilateral pleural effusions. CTA, 12/31/19- Pulmonary embolus subsegmental artery right lower lung posteriorly. Pericardial effusion. Bilateral pleural effusions greater on the right. Consolidation right lower lobe concerning for pneumonia with partial involvement of atelectasis. Additional areas of interstitial thickening/scarring or atelectasis within both lungs. Subpleural nodules left upper lobe and subpleural irregular slightly nodular configured densities of the right upper lobe. Findings could reflect inf ectious or postinflammatory densities versus parenchymal nodules.For patients at low risk (minimal or absent history of smoking and of other known risk factors), no routine follow-up is indicated. For patients at high risk (history of smoking or of other known risk factors), consider optional CT at [address] Abdomen/Pelvis, 12/31/19- Abdominal ascites and anasarca. Hepatomegaly. Bilateral renal vascular calcifications and possible intrarenal collecting structure calculi nonobstructive. Cholelithiasis with accentuation of the gallbladder wall which may be on the basis of diffuse fluid overload. Echocardiogram, 12/31/19- Normal global left ventricular systolic function with mild concentric left ventricular hypertrophy and a hyperdynamic left ventricle. Assessment of the left ventricular diastolic function also appeared to be normal. Mildly dilated left atrium with mitral leaflet calcification and trace mitral regurgitation. Aortic valve sclerosis without stenosis or aortic regurgitation. Moderate tricuspid regurgitation with mild pulmonary artery hypertension. The right atrium appeared to be mildly enlarged in limited views. [id number] pulmonic regurgitation. Right pleural effusion was noted. Pericardial effusion was noted, moderate posteriorly and small anteriorly. There was no evidence of cardiac tamponade. This was compared with most recent echocardiogram on 12/15/2019 and at that time, pulmonary artery systolic pressure was higher. Otherwise, no remarkable changes. Chest Xray, 01/02/20- Indwelling right pleural drainage catheter. Decreased right pneumothorax. A minimal right pneumothorax is present. Minimal right pleural effusion. Stable small left pleural effusion. Stable bilateral lower lobe airspace opacities. Brain MRI, 01/02/20- No acute intracranial pathology. Liver U/S, 01/05/20- Cholelithiasis with mild gallbladder wall thickening. However, there is no pericholecystic fluid or biliary ductal dilatation. Findings are equivocal for cholecystitis. Suggest correlation with laboratory studies. Hepatomegaly. Small 10 mm echogenic lesion in the left liver, most likely a small hemangioma, similar in size to a subtle lesion on 09/17/2018. Right renal atrophy. Calcification at the right renal hilum which may be vascular in nature in comparison with prior CT. No hydronephrosis. Abdomen Xray, 01/07/20- Unremarkable bowel gas pattern. Chest CT, 01/07/20- Right posterior lower chest pleural drain. Small right pneumothorax. Loculated gas in the posteromedial lower right pleural space, without parietal pleural thickening/fluid to suggest empyema. Interval evacuation of previous large right pleural effusion. Decreased small left pleural effusion. Coronary atherosc lerosis. Please see the abdomen/pelvis CT report of the same date for additional findings. CT Abdomen/Pelvis, 01/07/20- Pancreatitis. Serologic correlation recommended. Mild hepatomegaly. Cholelithiasis. Gallbladder wall thickening. This may be due to hypoproteinemia, if present. Mild abdominal, moderate pelvic ascites, stable. Prior hysterectomy. Diverticulosis. Please see the CT chest report of the same date for additional findings. Stat echocardiogram, 01/08/20- Normal sinus rhythm without evidence for intraventricular conduction disturban ce. M-mode and two-dimensional echocardiography was performed with pulsed, continuous wave, color flow, and tissue Doppler studies. Mild concentric left ventricular hypertrophy with normal wall motion. Mildly dilated left atrium with currently normal Doppler assessment of left ventricular diastolic function and estimated mean left atrial pressure. Mildly dilated right heart chambers with normal wall motion and at least moderately elevated pulmonary arterial pressure. Moderately dilated inferior vena cava (IVC) with absent respiratory collapse in keeping with an elevated central venous pressure. Normal aortic root and ascending aortic diameters. Normal appearing and functioning aortic valve. Mild degenerative changes of the mitral valvular apparatus with mild insufficiency. Normal appearing tricuspid valve with moderate insufficiency. Localized posterolateral pericardial effusion measuring 1.2 cm. Miniscule anterior and apical effusion. No intracardiac mass. This patient has had serial echocardiographic studies dating back to at least 02/06/2019. These five studies have been virtually photocopies of each other. There has been no significant change. Chest Xray, 01/08/20- Trace right pneumothorax with an indwelling right basilar pigtail chest tube. Stable small left pleural effusion and bibasilar atelectasis. PROGNOSIS: Good ACTIVITY: As tolerated DIET: Diabetic diet DISPOSITION: 06 Home Health Service. DISCHARGE INSTRUCTIONS & ITEMS TO FOLLOWUP ON ON OUTPATIENT: -Please take 10 mg eliquis (apixaban) twice a day through 01/15/2020. Begin taking 5 mg eliquis (apixaban) twice a day starting on 01/16/2020. -Please take 20 mg of oral prednisone once a day for the next four days beginning on 01/10. Then take 10 mg oral prednisone once a day beginning on 01/14 for four days running through 01/17. -Continue with outpatient hemodialysis sessions on [id number]. -Take 5 mg midodrine three times a day as prescribed. -F/u with primary care provider in the next 5 days. -Should symptoms return, please seek immediate medical care/return to the ED. DISCHARGE CONDITION: Stable TIME SPENT ON DISCHARGE: 36 minutes Vital Signs/I&Os Vital Signs Date Time Temp Pulse Resp B/P (MAP) Pulse Ox O2 Delivery O2 Flow Rate FiO2 01/10/20 12:35 97.1 81 16 95/55 (68) 100 Room Air 01/08/20 06:00 2.0 I&O- Last 24 Hours up to 6 AM 01/10/20 06:00 Intake Total 650 ml Output Total 1000 ml Balance -350 ml Laboratory Data Labs 24H Laboratory Tests 2 01/09/20 20:36: Bedside Glucose (Misc Panel) 118H 01/10/20 06:28: Nucleated Red Blood Cells % (auto) 2.7H, Immature Platelet Fraction 6.9, Anion Gap 11, Glomerular Filtration Rate 15.0L, Lactic Acid Level 4.2*H, Calcium Level 9.2 01/10/20 11:14: Lactic Acid Followup at 4 Hours 1.1 01/10/20 12:45: Bedside Glucose (Misc Panel) 140H CBC/BMP Laboratory Tests 01/10/20 06:28 FSBS Laboratory Tests Test 01/09/20 20:36 01/10/20 12:45 Range/Units Bedside Glucose (Misc Panel) 118 140 70-105 MG/DL Microbiology Microbiology 01/08/20 Stool Occult Blood (FERNANDO) - Final, Complete 01/07/20 Gram Stain - Final, Complete 01/07/20 Blood Culture - Preliminary, Resulted No Growth after 72 hours. All specime... 01/07/20 Stool Occult Blood (FERNANDO) - Final, Complete 01/07/20 Blood Culture - Preliminary, Resulted No Growth after 72 hours. All specime... 01/05/20 Stool Occult Blood (FERNANDO) - Final, Complete 01/01/20 Acid Fast Stain, Received Pending 01/01/20 Mycobacterial Culture, Received Pending 01/01/20 Fungal Smear, Received Pending 01/01/20 Fungal Culture, Received Pending 01/01/20 Gram Stain - Final, Complete 01/01/20 Anaerobic Culture - Final, Complete 01/01/20 Body Fluid Culture - Final, Complete 01/01/20 Stool Occult Blood (FERNANDO) - Final, Complete Discharge Medications Scheduled Apixaban (Eliquis) 2.5 Mg Tablet, 2.5 MG PO BID Aspirin (Aspirin) 81 Mg Tab.chew, 81 MG PO DAILY, (Reported) Atorvastatin Calcium (Atorvastatin Calcium) 20 Mg Tablet, 20 MG PO DAILY, (Re ported) Ergocalciferol (Vitamin D2) (Vitamin D2) 50,000 Units Cap, 50,000 CAP PO QWEEK, (Reported) sunday Folic Acid/Vit B Complex and C (April-Antonina Tablet) 0.8 Mg Tablet, 0.8 MG PO DAILY, (Reported) Insulin Glargine,Hum.rec.anlog (Basaglar Kwikpen U-100) 100 Unit/1 Ml Insuln.pen, 20 UNIT SC DAILY, (Reported) Levothyroxine Sodium (Levothyroxine Sodium) 125 Mcg Tablet, 125 MCG PO QAM, (Reported) Midodrine HCl (Midodrine HCl) 5 Mg Tablet, 5 MG PO TID, (Reported) Omeprazole (Omeprazole) 40 Mg Capsule.dr, 40 MG PO BID, (Reported) Prednisone (Prednisone) 20 Mg Tablet, 20 MG PO DAILY, (Reported) 20mg daily for 4 days started 01/10/20 Sevelamer Carbonate (Sevelamer Carbonate) 800 Mg Tablet, 1,600 MG PO TID, (Reported) Scheduled PRN Magnesium Hydroxide (Milk of Magnesia) 400 Mg/5 Ml Oral.susp, 30 ML PO DAILY PRN for CONSTIPATION, (Reported) Polyethylene Glycol 3350 (Miralax) 119 Gm Powder, 17 GM PO BID PRN for CONSTIPATION, (Reported) Allergies Coded Allergies: Penicillins (Verified Allergy, Unknown, UNKNOWN CHILDHOOD REACTION, 09/11/18) PER [facility] RECORDS PT HAS RECEIVED MEROPENEM AND CEFEPIME IN THE PAST GME ATTESTATION GME ATTESTATION My faculty preceptor for this patient encounter was physically present during the encounter and was fully available. All aspects of the patient interview, examination, medical decision making process, and medical care plan development were reviewed and approved by the faculty preceptor. The faculty preceptor is aware and concurs with the plan as stated in the body of this note and will attest to such by his/her cosignature. ATTENDING NOTE I, Pedrito Castillo, have independently examined this patient and performed my own physical exam, as well as reviewed the documentation and edited where necessary. I have discussed in detail with the resident / student the findings and plan of treatment as documented by the resident / student and edited their note. I agree with their findings and treatment plan and have edited their documentation. I will continue to follow the patient during this hospital stay. Time spent on discharge - 35 minutes GARRISON SAUNDERS D.O. Jan 10, 2020 22:10 PEDRITO CASTILLO MD Jan 11, 2020 08:48
[2020-01-11] MEDS ORDERED: CALC1CAP31 PO (18:31)
[2020-01-11] MEDS ORDERED: ASPI81CH33 PO (20:56)
[2020-01-11] MEDS ORDERED: ELIQ5TAB PO (21:01)
[2020-01-11] MEDS ORDERED: RENATAB5 PO (21:01)
[2020-01-11] MEDS ORDERED: MIDO5TA PO (21:01)
[2020-01-11] MEDS ORDERED: PRED20TA PO (21:01)
--- NOTE | 2020-01-13 12:24 | IPN ---
DATE: 01/04/2020 SUBJECTIVE: Ms. Trivedi is seen this morning at her bedside. She is feeling better compared to yesterday. Now, she can hear somewhat better and also can see from her right eye. 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 She was dialyzed yesterday afternoon and she tolerated the dialysis well. Her blood pressure has been stable. We did not remove much fluid due to low blood pressure. She continues to have drainage from her right chest tube which is still present. Patient denies any nausea or vomiting. PHYSICAL EXAMINATION: VITAL SIGNS: Temperature 98.6 degrees Fahrenheit, heart rate is 85 per minute and respiratory rate 14 per minute, blood pressure 104/62 mmHg and oxygen saturation 92% on room air. HEENT: Head is atraumatic. Pupils are equal and reactive to light and sclera are anicteric. NECK: Supple without JVD or thyroid enlargement. HEART: Heart sounds are regular without a pericardial friction rub. LUNGS: Diminished breath sounds on the right side where she has a chest tube in place. ABDOMEN: Soft and nontender. Bowel sounds are normal. EXTREMITIES: Without cyanosis or clubbing. Right thigh hemodialysis graft is patent. LABORATORY DATA: Todays labs showed a WBC count of 6.9, hemoglobin 10.9 and hematocrit 35.4. Platelets are 117,000. Sodium is 131, potassium is 5.1, CO2 26, BUN 36 and creatinine 4.16. AST is up to 319, ALT up to 127 and bilirubin is 1.7. PROBLEMS: 1. Endstage renal disease. Patient was dialyzed yesterday and she tolerated her dialysis well. Next dialysis will be due for Sunday. There is no emergent need for dialysis today. 2. Hypotension. Blood pressure has improved and she remains on Midodrine. We will continue with the same. We did not remove any fluid with dialysis yesterday and we will try to remove fluid with the next dialysis on Sunday. 3. Pulmonary embolism, status post anticoagulation. She is currently on an IV Heparin drip and the Hospitalist is planning for coumadin therapy which is appropriate. 4. Anemia, at present her anemia is stable and does not need any intervention. 5. Loss of hearing and vision. Probably related to medications and her symptoms have improved compared to yesterday. She is currently not receiving any autotoxic medications. Her visual loss is chronic and related to diabetic retinopathy. [facility]
--- NOTE | 2020-01-13 12:25 | IPN ---
DATE: 01/05/2020 SUBJECTIVE: Ms. Trivedi is seen at her bedside in the Intensive Care Unit. She is laying in the bed comfortably and reports that her hearing is improving, however she still gets some episodes of tinnitus. She denies any nausea or vomiting. There is no dyspnea or chest pain. She still has right sided chest tube which is draining fluid. PHYSICAL EXAMINATION: VITAL SIGNS: Temperature 98.2 degrees Fahrenheit, heart rate 80 per minute and respiratory rate 16 per minute. Blood pressure 92/58 mmHg and oxygen saturation 98%. HEENT: Head is atraumatic. NECK: Supple and without JVD or thyroid enlargement. HEART: Regular without a pericardial friction rub. LUNGS: Diminished breath sounds at bases. A few coarse rhonchi are present on the right side. EXTREMITIES: Without any cyanosis or clubbing. ABDOMEN: Soft and nontender and bowel sounds are present. NEUROLOGIC: She is at her baseline mentation without any focal deficits. LABORATORY DATA: Todays labs showed WBC count of 9.0, hemoglobin 11.3 and hematocrit 28. Sodium 125, potassium 5.9, CO2 23, BUN 59, creatinine 5.47. Glucose 261, calcium 9.1. AST is 318, ALT 170 and alkaline phosphatase 154. PROBLEMS: 1. Endstage renal disease. Patient was dialyzed Sunday and her next dialysis was planned for Sunday, however we will have to dialyze her today due to hyperkalemia and hyponatremia. 2. Hyperkalemia related to endstage renal disease. She also has a sudden increase in her LFTs which is suggestive of some problem with her gallbladder or liver. She is scheduled for an ultrasound later today. I feel that this may be contributing to her hyperkalemia. We will use 2.0 mEq dialysis bath today which will correct her hyperkalemia. 3. Hyponatremia related to endstage renal disease. This will be corrected with dialysis. Her volume status is also slightly decompensated as we have been unable to remove any fluid with the last couple of treatments due to low blood pressure. 4. Hypotension, blood pressure remains low but slightly better compared with the last few days. She remains on Midodrine. 5. Right pleural effusion. Patient has a pleural catheter which is draining clear fluid. She is being followed by Dr. Lopez. 6. Pulmonary embolism. Patient remains on coumadin and Heparin drip. MTDD
--- NOTE | 2020-01-13 12:28 | IPN ---
DATE: 01/06/2020 SUBJECTIVE: Ms. Trivedi is seen this afternoon during hemodialysis. I saw her this morning in the ICU also. She is feeling much better today, however, ringing in her ears still persists. She was able to see and recognize me and also able to hear much better. She denies any nausea or vomiting. She still has a right- sided chest tube in place, but denies any dyspnea or chest pain. PHYSICAL EXAMINATION: VITAL SIGNS: Temperature 98 degrees Fahrenheit, heart rate 70 per minute, respiratory rate 18 per minute, blood pressure 95/50 mmHg and oxygen saturation 97% on room air. HEENT: Head is atraumatic. NECK: Supple and without JVD or thyroid enlargement. HEART: Heart sounds are regular and without a pericardial friction rub. LUNGS: Diminished breath sounds at the right base with few rhonchi. ABDOMEN: Soft and nontender. Bowel sounds are normal. EXTREMITIES: Without any cyanosis or clubbing. Right thigh hemodialysis graft is patent and currently being used for dialysis. She has 2+ lower extremity edema. NEUROLOGIC: She is awake and at her baseline mentation. Her hearing and vision has improved. LABORATORY DATA: Todays labs show WBC 9.0, hemoglobin 11.0, hematocrit 36.4, platelets 109,000. Sodium 128, potassium 5.0, BUN 38, creatinine 4.0, glucose 252 and calcium 9.2. AST is down to 235, ALT 169 and alkaline phosphatase 152. IMAGING STUDIES: She had hepatic ultrasound done yesterday, which showed gallstones with mild gallbladder wall thickening, but no biliary ductal dilatation or pericholecystic fluid. PROBLEMS: 1. End-stage renal disease: Patient was dialyzed yesterday due to hyperkalemia. She is being dialyzed again today. She is tolerating her dialysis treatment much better now. 2. Hypotension: Blood pressure is still low, however, she is able to tolerate dialysis well. We are trying to remove about 1 liter of fluid today. 3. Congestive heart failure and pleural effusion: She had a large pleural effusion on the right side and has a chest tube in place. She also has lower extremity edema and we are trying to remove 1 liter of fluid today as tolerated. She is tolerating it so far and blood pressure is in 90s. 4. Hyponatremia: Her sodium level partially improved with dialysis yesterday from 125 up to 128. We anticipate further improvement today with dialysis. 5. Anemia: Her anemia is stable at present and does not need any urgent intervention. [facility]
--- NOTE | 2020-01-13 12:30 | IPN ---
DATE: 01/07/2020 SUBJECTIVE: Ms. Trivedi is seen this morning at her bedside. She is laying in the bed at present without any acute distress. The nursing staff reports that she was given some pain medication and became unresponsive and hypotensive through the night. __ was called this morning and she was given three doses of Narcan. She is awake now, and responsive, however blood pressure is still low and she has been on Levophed. This morning her lactic acid level was noticed to be 7.4 and the patient is scheduled for abdominal CT scan. She still has the right sided chest tube which is draining clear fluid. Patient denies any dyspnea or chest pain. PHYSICAL EXAMINATION: VITAL SIGNS: Temperature is 98 degrees Fahrenheit, heart rate is 78 per minute and respiratory rate is 20 per minute, blood pressure is 79/45 mmHg on 4 mcg of Levophed. Oxygen saturation is 100% on 4 liters of oxygen. HEENT: Head is atraumatic. NECK: Supple. JVD is difficult to be assessed. She has a central in the right internal jugular vein. HEART: Heart sounds are regular. LUNGS: Slightly with diminished breath sounds in the right base. She has a chest tube on the right side. ABDOMEN: Soft, somewhat firm but minimally tender. Bowel sounds are present. EXTREMITIES: Without any cyanosis or clubbing. Right thigh hemodialysis graft is patent. NEUROLOGIC: She is awake and responds to questions appropriately. LABORATORY DATA: Todays labs shows sodium of 132, potassium 5.1, CO2 24, BUN 31 and creatinine 3.44. Glucose 183 and calcium 9.2. Lactic acid level is 7.4. AST is 263, ALT 193, and alkaline phosphatase is 155. Blood gas showed a pH of 7.25, pO2 44.6, pO2 63.8. This is a venous blood gas. PROBLEMS: 1. Endstage renal disease. Patient was dialyzed yesterday and electrolytes are stable. There is no emergent indication for dialysis today but will hold off on dialysis until tomorrow in view of low blood pressure and need for Levophed. 2. Hyponatremia, sodium level did improve with dialysis yesterday. No intervention will be needed at this point. 3. Hypotension, etiology remains uncertain. There is no obvious source of infection other than chest tube. She has a central line which was placed just this morning. She is scheduled for a CT scan of the chest, abdomen and pelvis later today. 4. Pulmonary embolism and DVT. The patient has been anticoagulated. She is still on IV Heparin and also receiving Coumadin. MTDD
--- NOTE | 2020-01-13 12:32 | IPN ---
DATE: 01/07/2020 SUBJECTIVE: Ms. Trivedi had a spell of decreased mental status and unconsciousness with profound hypotension down to 60 systolic. A central line was placed and patient was started on Levophed. Because of her history of a prior pericardial effusion, a stat echo was obtained, which only showed a small rim of a pericardial effusion and no compression. She did have a non- compressible SVC and a large right atrium. There was some tricuspid regurgitation. By the time I examined her this afternoon, the ringing in her ears was completely gone and she could hear normally. OBJECTIVE: PRESENT VITALS: Temperature 98.3 with heart rate 75 and in sinus rhythm, respiratory rate 12 without use of accessory muscles, who is 95% saturated on room air. Blood pressure 103/60. T-max has been indeed 98.3. INTAKE AND OUTPUT: Over the past 24 hours was recorded as 504 in and 1160 in for negativity of 656 cc. She had a 1000 cc taken off on hemodialysis. She weighs 72.7 kilos today, just 74.4 kilos yesterday. PHYSICAL EXAMINATION: She has some very faint coarse rhonchi during late inspiration on both sides. Percussion was full to the diaphragm. Her cardiac exam is without murmurs, clicks, gallops or rubs. I cannot feel her PMI. S1 and S2 are normal. Abdomen is soft, nontender, bowel sounds are positive. No hepatomegaly. No CVA tenderness. Extremities show trace pretibial edema; a little bit more on the left than right. There is no differential swelling of the upper extremities. Her skin is cool and mottled at the knees and below. She is on Levophed. Neuro shows II through XII intact. Normal gross motor, gross sensation intact, gait is not tested. Psychiatric now shows her to be awake, alert and oriented x3 with appropriate mood and affect. LABORATORY INVESTIGATIONS: White count still only 9.4 with hemoglobin and hematocrit 12.0 and 40.8 up from 11.0 and 36.4 yesterday, platelet count 101,000 and stable with a differential that shows 78% neutrophils, 12% lymphocytes, 7% monocytes. There are no mature forms. No toxic granulations. Chemistries: Sodium 132, potassium 5.1, BUN 31, creatinine 3.44 after dialysis yesterday. Glucose 183 with calcium 9.2 and corresponding albumin 3.1. AST and ALT are essentially unchanged at 263 and 193 respectively. Lactic acid 7.4, which has come down to 4.2 over 4 hours. Amylase and lipase 29 and 41. IMAGING STUDIES: Chest x-ray shows her lungs are fully expanded to the chest wall. There is no central line in place. Costophrenic angles are sharp. It should be noted that she only put out a 160 out of her chest catheter. Her heart does not look any different on this x-ray as it did on yesterdays x-ray. A CT of her chest was obtained. Her lung parenchyma looks to be intact. She has bibasilar atelectasis. There is a very small sliver of pneumothorax from the chest catheter placement. Her pericardial effusion looks no bigger than it was a few days ago; in fact it looks smaller. She has coronary artery calcifications in the left anterior descending coronary artery. I cannot comment on any more of the chest CT as the computer is not working. IMPRESSION: 1. Pericardial effusion: Continuing to improve since April 2019. 2. Pleural effusion: Relieved with a pigtail catheter, transudative in nature and lymphocytic. 3. Underlying right lower lobe compression secondary to pleural effusion: Improving. 4. Small right-sided segmental branch pulmonary embolism. 5. Diabetes. 6. End-stage renal disease. 7. Hypothyroidism. 8. Chronic constipation. 9. Acute hearing loss: Improved with steroids, maybe sensorineural hearing loss. 10. Severe hypotension today and decreased mental status: Now vastly improved. She responded to Levophed, but I suspect that this could be secondary to volume depletion from her hemodialysis the last two days that has removed 2,000 cc. Her weight is down 2 kilos. I was going to take her chest tube catheter out today, however, I will do it tomorrow with all the acute changes that happened this morning. I suspect the increased liver enzymes are secondary to perfusion secondary to her chronic hypotension over the last few days. I expect that they will get acutely worse overnight. MTDD
--- NOTE | 2020-01-13 12:34 | IPN ---
DATE: 01/08/2020 What a difference 24 hours makes. Mrs. Trivedi is sitting up comfortably and speaking. Her tinnitus disappeared yesterday evening and has now returned but to a much lesser extent. She can hear and converse. Her vital signs show a maximum temperature of 98.6 with a heart rate that ranges between 68-80 in a sinus rhythm with an occasional premature ventricular contraction (PVC), respiratory rate 18-20 without the use of accessory muscles. She is now 99% saturated on room air. Her blood pressure is ranging between 100/59-92/54. Her intake and output for the 24 hours has been recorded as 1088 in and 161 out for a positivity of 927 mL. She has put out 161 mL from the chest tube, which was t he same as yesterday. Her weight today is 73.3 kg compared to 72.35 kg yesterday. I did note in the prior 2 days, January 04 and January 05 that 1000 mL were removed on dialysis. She is going to dialysis today. PHYSICAL EXAMINATION: She has some scattered rales and rhonchi during inspiration with a percussion note that is full to the diaphragm. She has more coarse sounds on the right, which I suspect is a form of a succussion splash. Cardiac exam is without murmurs, clicks, gallops, or rubs. I cannot feel her point of maximal impulse (PMI). S1 and S2 are normal. Abdomen is soft, nontender. Bowel sounds positive. There is no costovertebral angle (CVA) tenderness. Extremities show 2+ pretibial edema. No calf tenderness. No differential swelling of the extremities. Skin is warm, dry, and perfused without cyanosis or mottling, including that of the nailbeds and knees. Neck is supple. There is no jugular venous distention. No subcutaneous emphysema. Trachea is midline. Mouth shows the mucous membranes to be pink and moist. Lips and commissures without lesion. No thrush. Eyes show her pupils to be equal and reactive. Extraocular muscles intact. Sclerae are now icteric, which I had not noticed on prior examinations. Neurologic shows II-XII intact. Normal gross motor, gross sensation intact. Gait is not tested. Psychiatric shows her to awake, alert, and oriented times three with appropriate mood and affect and conversational. Her white count today is 7.8 with a hemoglobin and hematocrit of 11.3 and 37.2, respectively, probably secondary to hemodilution from lack of dialysis yesterday. Platelet count is 83 and relatively stable. Her electrolytes today show a sodium 133, potassium 5.5, chloride 94 and total CO2 of 26. BUN and creatinine are 47 nondistended 4.55, respectively, with a glucose 214 and a calcium 8.8. Lactic acid is not drawn today but was decreasing yesterday. Her PTT is 73.3 seconds. She is remaining on heparin. Chest x-ray today shows sharp costophrenic angles with her lungs fully expanded to the chest wall. There is a small apical pneumothorax secondary to catheter being placed. IMPRESSION: I still note that my progress notes after January 03 are still not on the chart. 1. Pericardial effusion, improved since April 2019. 2. Pleural effusion relieved with a pigtail catheter with diminished output, ready for removal. 3. Underlying right lower lobe compression secondary to pleural effusion, improving. 4. Small right segmental branch pulmonary embolism. 5. Diabetes. 6. End stage renal disease. 7. Hypothyroidism. 8. Chronic constipation. 9. Acute hearing loss, improved with steroids, most likely sensorineural hearing loss. PLAN AND DISCUSSION: I will remove her chest catheter today. I do suspect her hypotension was secondary to overzealous fluid removal 2-3 days ago. That seems to have resolved. She is now on a steroid taper. I will see her once again tomorrow, and if the x-ray remains stable, I will withdraw from the case. [facility]
--- NOTE | 2020-01-13 12:37 | IPN ---
DATE: 01/09/2020 Ms. Trivedi has been transferred to the progressive care unit (PCU). She is doing quite well and breathing well. Her chest catheter has been out for the last 24 hours. Her vital signs show a maximum temperature of 98.6 with a heart rate that ranges between 74-80 in a sinus rhythm, respiratory rate of 18-20 without the use of accessory muscles, who is 98% saturated on room air and has blood pressures now ranging between 93/54-107/54. Her intake and output for the 24 hours have been recorded as 930 in and 610 out for a positivity of 320 mL. There was 500 mL taken off at dialysis. She weighs 76 kg today compared to 73.2 kg yesterday. She is again going for dialysis today. PHYSICAL EXAMINATION: Her lungs show some coarse rhonchi, particularly on the right-hand side. It sounds more like fluid. Percussion note is full to the diaphragm. Cardiac exam is without murmurs, clicks, gallops, or rubs. I cannot feel her point of maximal impulse (PMI). S1 and S2 are normal. Abdomen is soft and nontender. Bowel sounds are positive. She is slightly distended and tympanitic. She is passing flatus and having bowel movements. Extremities show 2+ pretibial edema. No calf tenderness. No differential swelling of the upper extremities. Skin is warm, dry, and perfused without cyanosis or mottling, including that of the nailbeds and knees. Neck is supple. There is no jugular venous distention. No subcutaneous emphysema. Trachea is midline. Mouth shows her mucous membranes to be pink and moist. Lips and commissures without lesions or thrush. Eyes show her pupils to be equal and reactive. Extraocular muscles intact. She is slightly Sclerae icteric. Neurologic shows II-XII intact. Normal gross motor, gross sensation intact. Gait is not tested. Psychiatric shows her to awake, alert, and oriented times three with appropriate mood and affect and conversational. Her white count today is 10.0 with a hemoglobin and hematocrit of 12.1 and 40.4. She has been transfused a total of 2 units on December 31. There is no differential ordered. Her electrolytes show a sodium 133, potassium 4.7, BUN and creatinine of 33 and 3.92 after dialysis yesterday. Her calcium is 9.5 with a corresponding albumin of 3.4. AST and ALT are 259 and 224, respectively. They are essentially the same as they were yesterday. Her chest x-ray today shows her lungs fully expanded to the chest wall. Costophrenic angles are sharp. The apical airspace is now gone. There is a little bit of subcutaneous emphysema in the lower hemithorax. The lateral film shows some residual atelectasis from her compression from the prior pleural effusion inferiorly on the left lower lobe. IMPRESSION: 1. Pleural effusion, transudative, from her renal insufficiency 2. Pneumothorax, resolved. 3. End stage renal disease, on dialysis. 4. Pericardial effusion, improved since April 2019. 5. Underlying right lower lobe compression secondary to pleural effusion, improving, almost resolved. 6. Small right segmental branch pulmonary embolism. 7. Diabetes. 8. Hypothyroidism. 9. Acute hearing loss, probably sensorineural hearing loss responsive to steroids. 10. Liver dysfunction. PLAN AND DISCUSSION: As her fluid is not reaccumulating and the chest catheter is out, I will withdraw from the case. She is on a steroid taper for her hearing loss. I think her liver dysfunction is secondary to her transient hypotension 2 days ago. She is still icteric. Her bilirubin is now down to 1.4 with a maximum level of 1.9 on January 02. MTDD
--- NOTE | 2020-01-13 12:39 | IPN ---
DATE: 01/09/2020 SUBJECTIVE: Ms. Trivedi is seen this morning on her bedside. She is sitting in the chair at the time of my visit. She is feeling well and denies any dyspnea, chest pain, nausea or vomiting. She was dialyzed yesterday and 500 mL of fluid was removed. She was given 25% albumin 50 mL prior to dialysis. She still has leg edema, but denies any dyspnea. Her blood pressure has been running mostly about 100 mmHg today except one reading of 93/54 mmHg. PHYSICAL EXAMINATION: VITALS: At present, temperature 97 degrees Fahrenheit, heart rate 75 per minute, respiratory rate 18 per minute, blood pressure 118/68 mmHg and oxygen saturation 98% on room air. HEENT: Head is atraumatic. NECK: Supple and JVD is not elevated sitting upright. She still has a central line in her right IJ. HEART: Heart sounds are regular. LUNGS: Diminished breath sounds in the right base and scattered crepitations. ABDOMEN: Soft and nontender. Bowel sounds are normal. EXTREMITIES: Without any cyanosis or clubbing. Right thigh hemodialysis graft is patent and without any signs of infection. Lower extremity edema is 2+. LABORATORY DATA: Todays labs show WBC 10.0, hemoglobin 12.1, hematocrit 40.4, platelets 73,000. Sodium 133, potassium 4.7, CO2 25, BUN 33, creatinine 3.92, glucose 146 and calcium 9.5. Total protein 7.1 and albumin 3.4. PROBLEMS: 1. End-stage renal disease: Patient is regularly dialyzed on Sunday, and Sunday schedule. She was dialyzed yesterday and will be dialyzed again today due to hypervolemia. She has low blood pressure and we are unable to remove too much fluid in one session. 2. Hypotension: Blood pressure seems to be better and she will continue with Midodrine 5 mg t.i.d. We will give her albumin 25% 50 mL prior to dialysis again today. 3. Hypervolemia, pleural effusion and peripheral edema: She had a chest tube placed for right pleural effusion which has improved. She still has lower extremity edema and we will keep trying to remove fluid with dialysis as tolerated. DISPOSITION: Patient seems to be improving and likely to be ready for discharge in the next couple of days. [facility]
--- NOTE | 2020-01-13 12:41 | IPN ---
DATE: 01/10/2020 SUBJECTIVE: The patient was seen and examined Sunday morning during hemodialysis procedure. She is tolerating hemodialysis procedure well. Today is her regular day of dialysis. She was dialyzed yesterday as well and 1 liter of fluid was removed yesterday. OBJECTIVE: Vital signs: Temperature 98 is 97.1 degrees Fahrenheit, blood pressure 95/55, pulse is 81, respiratory rate of 16, saturating 100% on room air. Intake and output: There is no significant urine output recorded. Ultrafiltration with hemodialysis was 1 liter yesterday. Weight in the bed scale is 76.5 kg. Physical exam: General: Patient is awake, alert, oriented times three, laying in bed, no apparent distress. Head and neck exam: Extraocular muscles intact. Pupils equally round and reactive to light. Mucous membranes are moist. Neck is supple. There is mildly elevated jugular venous distension (JVD). Cardiovascular: S1, S2. 2+ edema of the bilateral lower extremities. Respiratory: Mildly decreased breath sounds at the bases with mild inspiratory crackles at the bases. Abdomen: Soft, positive bowel sounds, nontender, no organomegaly. Musculoskeletal: She has a right thigh AV graft which is being used for dialysis at this time. Central nervous system (SEMI DRIVER): No focal deficit. Power is 5/5 in all extremities. LABORATORY REVIEW: CBC showed a WBC of 9.8, hemoglobin 11.6, platelets 71. BMP showed sodium 133, potassium 4.9, chloride 95, bicarb 27, BUN 32, creatinine 3.4. Lactic acid was 4.2 in the morning which improved to 1.1 during hemodialysis. Microbiology: All the cultures are negative so far. CURRENT INPATIENT MEDICATIONS: Patients medications were all reviewed by myself. There is no significant change in the medications today except that I changed her meropenem dose from 1 gm to 500 mg IV daily because of renal failure. ASSESSMENT AND PLAN: 1. End-stage renal disease. Patient is dialysis dependent. Today she is being dialyzed according to her regular schedule. Ultrafiltration goal will be at least 2.5 liters as tolerated by blood pressure. 2. Sdcfx-hi-ncdythh decompensated congestive heart failure. The patient is volume overloaded. Ultrafiltration is being done but it is difficult to remove fluid because of her low blood pressures. She needed an albumin infusion yesterday and today she is being dialyzed after midodrine tablet. 3. Chronic hypotension. Continue current dose of midodrine 5 mg by mouth three times a day. 4. Right lower lobe pulmonary embolism. The patient is currently on Eliquis. 5. Disposition: The patient is optimized to be discharged from nephrology standpoint to be followed up by nephrology service after discharge from the hospital. LESVIA
[2020-01-16] MEDS ORDERED: APIXABAN 5 MG TAB (ELIQUIS) PO SCH (09:00)
--- NOTE | 2020-01-16 10:54 | REP ---
CHEST X-RAY CLINICAL: Follow up effusion. TECHNIQUE: PA and lateral COMPARISON: 01/08/20. FINDINGS: Pigtail catheter at the right base has been removed. Small bilateral pleural effusions and small amount of residual right pleural gas are again suggested without significant change from prior examination. The mediastinum and cardiac silhouette are stable. Right IJ line with tip in the SVC again noted. Skeletal structures are intact. IMPRESSION: 1. Bibasilar opacities suggesting pleural effusion/atelectasis and possible small amount of residual right pleural gas. 2. No new acute process. MTDD
--- NOTE | 2020-01-16 10:55 | REP ---
CHEST X-RAY: 2-VIEWS HISTORY: Pleural effusion. COMPARISON: 01/02/2020. FINDINGS: The previously noted pigtail catheter is again seen in the right base posteriorly. This is essentially unchanged in position. There is slight blunting of the left lateral pleural angle and some fissural thickening is noted in the minor fissure. No free pleural effusion is visible on the right, however. There is increased density and some volume loss on the lateral film overlying the spine. This appears to be left lower lobe based on the frontal view. Heart is enlarged unchanged. There is a tiny right apical pneumothorax visible today MTDD
--- NOTE | 2020-01-16 10:56 | REP ---
CHEST X-RAY: 2-VIEWS HISTORY: Pleural effusion. COMPARISON: 01/03/2020. FINDINGS: There is a tiny sliver of apical pleural air in the right apex. This is improved from yesterdays radiograph. A pigtail catheter remains in place in the right posterolateral pleural angle. There is slight blunting of the left posterior pleural angle and left lateral pleural angle. There is some atelectasis and/or infiltrate in the lung bases posteriorly on the lateral radiograph unchanged. No new infiltrate. MTDD
--- NOTE | 2020-01-16 10:57 | REP ---
CHEST X-RAY CLINICAL: Follow-up pneumothorax. Pleural effusion. TECHNIQUE: PA and lateral. COMPARISON: 01/05/2020. FINDINGS: Pigtail catheter at the right base along with mild bibasilar opacities (left greater than right), including blunting to the left costophrenic angle again noted and essentially unchanged. Trace residual basilar atelectasis and small pleural reactions cannot b excluded. While no definite acute right pneumothorax is appreciated, trapped air within the minor fissure in pleural reflections of the minor fissure cannot be excluded. No significant pneumothorax identified. Mediastinal and cardiac silhouette are stable. Skeletal structures are intact. IMPRESSION: Essentially unchanged when compared to prior examination. Bibasilar pleural parenchymal changes again noted and essentially unchanged including suspected aliments of atelectasis and possible small amounts of pleural reaction/effusion. A very small residual amount of pleural gas in the reflections of the minor fissure cannot be excluded. MTDD
--- NOTE | 2020-01-16 10:58 | REP ---
PORTABLE CHEST X-RAY CLINICAL: Central line insertion. COMPARISON: 01/07/2020 at 0539 am. FINDINGS: Right IJ line with tip in the SVC. Mediastinum and cardiac silhouette are stable. Pigtail catheter at the right base remains stable. The lung aquino are essentially unchanged. A small right anterior pneumothorax is again suspected along with stable left basilar atelectasis and small left pleural effusion. Skeletal structures are intact. IMPRESSION: * Right internal jugular (IJ) line with tip in the superior vena cava (SVC). * Lung aquino and pleural changes remain stable. MTDD
--- NOTE | 2020-01-16 11:28 | RO ---
DATE OF OPERATION: 01/07/2020 PREOPERATIVE DIAGNOSIS: Shock. POSTOPERATIVE DIAGNOSIS: Shock. PROCEDURE: Internal jugular central line. INDICATION: Vasopressor administration. ATTENDING PHYSICIAN: Dr. Landeros CONSENT: The procedure was performed emergently and the permission was implied due to the emergent nature of the procedure. Patient did agree verbally to the procedure and we did discuss the indications, risks and benefits. PROCEDURE SUMMARY: Central line insertion practice form was completed by an independent observer. A timeout was performed. Full sterile technique was maintained throughout the procedure including surgical cap, mask protective eyewear, full gown and sterile gloves. The patient was placed in Trendelenburg position. The right neck region was prepped using chlorhexidine scrub and draped in a sterile fashion using a full drape and a sterile probe cover was employed. The right internal jugular vein was identified using ultrasound. Anesthesia was achieved over the vein using 1% lidocaine. Using realtime ultrasound guidance, the introducer needle was inserted into the internal jugular vein under direct ultrasound visualization. Venous blood was withdrawn. The health information assistant was removed and a guidewire was advanced into the introducer needle. The introducer needle was removed over the guidewire and a small incision was made at the skin surface with a scalpel. A dilator was exchanged over the guidewire and after appropriate dilation was obtained, the dilator was then exchanged over the wire for a triple-lumen central venous catheter. The wire was removed and the catheter was sutured in place at 18 cm. A sterile chlorhexidine-impregnated dressing was placed over the catheter at the insertion site. The patient tolerated the procedure without any hemodynamic compromise. At time of procedure completion, all ports aspirated and flushed properly. Post-procedure chest x-ray showed the central line in satisfactory position with no pneumothorax. Estimated blood loss is less than 2 mL. MTDD
== END 2020-01-10 16:23 | disposition home health service (06) | DRG 134 ==
LOC: M ED 06:09 → M ED INP 10:26 → ENRESERV 10:43 → M ICU 12:43 → M PCU 01-08 17:55
PROVIDERS: ADMIT Internal Medicine; ATTEND Internal Medicine
PROC: 0W9930Z Drainage of Right Pleural Cavity with Drainage Device, Percutaneous Approach (ICD-10-PCS; 2020-01-01)
PROC: 5A1D70Z Performance of Urinary Filtration, Intermittent, Less than 6 Hours Per Day (ICD-10-PCS; principal; 2020-01-01 11:00)
DX: I26.99 Other pulmonary embolism without acute cor pulmonale (principal); R57.0 Cardiogenic shock; I50.33 Acute on chronic diastolic (congestive) heart failure; J90 Pleural effusion, not elsewhere classified; N18.6 End stage renal disease; I31.3 Pericardial effusion (noninflammatory); E11.42 Type 2 diabetes mellitus with diabetic polyneuropathy; I24.8 Other forms of acute ischemic heart disease; N25.81 Secondary hyperparathyroidism of renal origin; E11.51 Type 2 diabetes mellitus with diabetic peripheral angiopathy without gangrene; I27.81 Cor pulmonale (chronic); E87.70 Fluid overload, unspecified; R74.0 Nonspecific elevation of levels of transaminase and lactic acid dehydrogenase [LDH]; E87.5 Hyperkalemia; H90.3 Sensorineural hearing loss, bilateral; J93.9 Pneumothorax, unspecified; D63.1 Anemia in chronic kidney disease; I25.10 Atherosclerotic heart disease of native coronary artery without angina pectoris; K21.9 Gastro-esophageal reflux disease without esophagitis; E03.9 Hypothyroidism, unspecified; I95.1 Orthostatic hypotension; K80.20 Calculus of gallbladder without cholecystitis without obstruction; K59.09 Other constipation; H93.13 Tinnitus, bilateral; H54.8 Legal blindness, as defined in USA; Z95.5 Presence of coronary angioplasty implant and graft; Z99.2 Dependence on renal dialysis; Z79.4 Long term (current) use of insulin; Z79.82 Long term (current) use of aspirin; Z88.0 Allergy status to penicillin; Z87.891 Personal history of nicotine dependence; E87.1 Hypo-osmolality and hyponatremia

== ENCOUNTER 2020-01-11 18:21 | Observation (INO) | payer OTHER ==
[~2020-01-11] VITALS: Ht 160 cm; Wt 77.4 kg
[~2020-01-11 18:21] MED LIST changes: +ECOT81TA5 PO; +ELIQ5TAB PO; +MIDO5TA PO; +MILKSUS3 PO; +PRED10PA PO; +PRED20TA PO; +VITAMIN D 50,000 UNITS CAPSULE (ERGOCALCIFEROL 1.25MG) PO SCH
[2020-01-11] MEDS ORDERED: CALC1CAP31 PO (18:31)
[2020-01-11 19:36] LABS: VENOUS BASE EXCESS -1.1 (-2.0-2.0); VENOUS HCO3 27.5 MEQ/L (23.0-27.0); VENOUS O2 SATURATION 44.9 % (60.0-80.0); VENOUS PARTIAL PRESSURE CO2 64.1 mmHg (38.0-50.0); VENOUS PARTIAL PRESSURE O2 32.2 mmHg (30.0-50.0); VENOUS STANDARD HCO3 22.3 MEQ/L; VENOUS TOTAL CO2 29.4 MEQ/L (24.0-28.0)
[2020-01-11 19:37] LABS: BASO % 0.1 % (0.0-1.0); EOS % 0.1 % (0.0-3.0); HEMATOCRIT 41.9 % (36.0-47.0); HEMOGLOBIN 12.5 g/dl (12.0-15.5); LYMPH # 0.4 10^3/uL (1.5-5.0); LYMPH % 3.9 % (24.0-44.0); MEAN CORPUSCULAR HEMOGLOBIN 32.3 pg (27.0-33.0); MEAN CORPUSCULAR HGB CONC 29.8 g/dl (32.0-36.5); MEAN CORPUSCULAR VOLUME 108.3 fl (80.0-96.0); MONO # 0.5 10^3/uL (0.0-0.8); MONO % 5.5 % (0.0-5.0); NEUTROPHILS # 8.3 10^3/uL (1.5-8.5); NEUTROPHILS % 89.4 % (36.0-66.0); RED BLOOD COUNT 3.87 10^6/uL (4.00-5.40); WHITE BLOOD COUNT 9.3 10^3/uL (4.0-10.0)
[2020-01-11 19:41] LABS: PLATELET COUNT, AUTOMATED 78 10^3/uL (150-450)
--- NOTE | 2020-01-11 19:42 | REPVR ---
PROCEDURE INFORMATION: Exam: XR Chest, 1 View Exam date and time: 01/11/2020 7:11 PM Age: 49 years old Clinical indication: Chest pain TECHNIQUE: Imaging protocol: XR of the chest Views: 1 view. COMPARISON: 1. CR Chest, 2 view PA, Lat 01/09/2020 7:55 AM 2. CR Chest, 2 view PA, Lat 01/08/2020 8:25:[address] Chest with contrast 01/07/2020 10:46:28 AM FINDINGS: Tubes, catheters and devices: The right internal jugular central venous line has been removed since the prior chest x-ray on 01/09/2020. Lungs: There is bibasilar atelectasis. Pleural space: There is a tiny right apical pneumothorax that is similar in size compared to the prior chest x-ray on 01/08/2020 and measures approximately 5%. A small left pleural effusion is present. Heart/Mediastinum: Unremarkable. No cardiomegaly. Bones/joints: Unremarkable. IMPRESSION: 1. Tiny right apical pneumothorax that is similar in size compared to the prior chest x-ray on 01/08/2020 and measures approximately 5%. 2. Small left pleural effusion. 3. Bibasilar atelectasis. Electronically signed by: Harvey Brown On 01/11/2020 19:41:21 PM
[2020-01-11 19:47] LABS: INR 1.5; PROTHROMBIN TIME 18.5 SECONDS (12.5-14.3)
[2020-01-11 20:05] LABS: ALBUMIN 3.3 GM/DL (3.2-5.2); BILIRUBIN,DIRECT 0.6 MG/DL (0.0-0.2); BILIRUBIN,TOTAL 1.4 MG/DL (0.2-1.0); CALCIUM LEVEL 9.4 MG/DL (8.5-10.1); CREATININE FOR GFR 4.15 MG/DL (0.55-1.30); GLOMERULAR FILTRATION RATE 12.2 (>58); POTASSIUM SERUM 4.3 MEQ/L (3.5-5.1); TOTAL PROTEIN 7.6 GM/DL (6.4-8.2)
[2020-01-11] MEDS ORDERED: ASPI81CH33 PO (20:56)
[2020-01-11] MEDS ORDERED: HumaLOG INSULIN (NovoLOG) PER UNIT SC SCH (21:00)
[2020-01-11] MEDS ORDERED: ELIQ5TAB PO (21:01)
[2020-01-11] MEDS ORDERED: MIDO5TA PO (21:01)
[2020-01-11] MEDS ORDERED: RENATAB5 PO (21:01)
[2020-01-11] MEDS ORDERED: PRED20TA PO (21:01)
--- NOTE | 2020-01-11 21:13 | ECGEPIP ---
[facility] - ED Test Date: 2020-01-11 Pat Name: MARINA WHITE Department: Room: - Gender: Female [employer]: minda : [id number] Requested By: GLENDY GEORGE Order Number: [id number] Reading MD: Radha Vidal Measurements Intervals [place] Rate: 75 P: 58 VA: 143 QRS: 86 QRSD: 96 T: 95 QT: 352 QTc: 394 Interpretive Statements SINUS RHYTHM POSSIBLE LEFT ATRIAL ENLARGEMENT prwp low voltage limb NONSPECIFIC T-WAVE ABNORMALITY decreased rate 01/07/20 Electronically Signed on 01-11-2020 21:13:28 EDT by Radha Vidal
[2020-01-11 21:43] LABS: ABG BASE EXCESS -4.7 (-2.0-2.0); ABG HCO3 20.7 MEQ/L (22.0-26.0); ABG O2 SATURATION 96.6 % (95.0-99.0); ABG PARTIAL PRESSURE CO2 39.6 mmHg (35.0-45.0); ABG PARTIAL PRESSURE O2 92.6 mmHg (75.0-100.0); ABG STANDARD HCO3 20.6 MEQ/L (22.0-26.0); ABG TOTAL CO2 21.9 MEQ/L (22.0-29.0); ABG pH (ARTERIAL) 7.336 UNITS (7.350-7.450)
[2020-01-11] MEDS ORDERED: GLUCOSE 4GM CHEW TABLET PO PRN (22:00)
[2020-01-11] MEDS ORDERED: GLUCAGON INJ 1MG VIAL SC PRN (22:00)
[2020-01-11] MEDS ORDERED: DEXTROSE 50% 50 ML SYRINGE IV PRN (22:00)
[2020-01-11] MEDS ORDERED: MOM 30ML SUSPENSION UDC PO PRN (22:00)
[2020-01-11] MEDS ORDERED: MIRALAX *UNIT DOSE* 17GM PACKET PO PRN (23:45)
[2020-01-12 00:21] VITALS: BP 92/52
[2020-01-12] MEDS: OMEPRAZOLE 20 MG CAP PO SCH ×2 (00:39→08:18)
--- NOTE | 2020-01-12 02:03 | REPVR ---
PROCEDURE INFORMATION: Exam: US Duplex Lower Extremity Veins, Bilateral Exam date and time: 01/11/2020 1:42 AM Age: 49 years old Clinical indication: Edema, localized; Lower extremity, bilateral; Additional info: Red, swollen, DVT TECHNIQUE: Imaging protocol: Real-time duplex ultrasound of the extremities with 2-D garcia scale, color Doppler flow and spectral waveform analysis with image documentation. Complete exam focused on the bilateral lower extremity veins. COMPARISON: US Duplex, Ext LOWER veins, bilat BILATERAL 05/27/2015 3:00 PM FINDINGS: Right deep veins: Unremarkable. The common femoral, femoral, and popliteal veins are patent without thrombus. Normal compressibility, augmentation response and Doppler waveforms. Right superficial veins: Saphenofemoral junction is patent without thrombus. Left deep veins: Unremarkable. The common femoral, femoral, and popliteal veins are patent without thrombus. Normal compressibility, augmentation response and Doppler waveforms. Left superficial veins: Saphenofemoral junction is patent without thrombus. Lymph nodes: There are bilateral inguinal lymph nodes, the largest right inguinal lymph node measures 2.9 cm x 0.6 cm x 1.4 cm. IMPRESSION: No deep vein thrombosis in the veins imaged in both lower extremities. Electronically signed by: Harvey Brown On 01/12/2020 02:03:04 AM
[2020-01-12 04:00] VITALS: BP 106/65
[2020-01-12 05:13] LABS: BASO % 0.1 % (0.0-1.0); HEMATOCRIT 43.6 % (36.0-47.0); LYMPH # 0.7 10^3/uL (1.5-5.0); LYMPH % 8.3 % (24.0-44.0); MEAN CORPUSCULAR HEMOGLOBIN 32.5 pg (27.0-33.0); MEAN CORPUSCULAR HGB CONC 29.8 g/dl (32.0-36.5); MONO # 0.6 10^3/uL (0.0-0.8); MONO % 7.1 % (0.0-5.0); NEUTROPHILS % 83.5 % (36.0-66.0); PLATELET COUNT, AUTOMATED 74 10^3/uL (150-450); WHITE BLOOD COUNT 8.4 10^3/uL (4.0-10.0)
[2020-01-12 05:41] LABS: ALBUMIN 3.3 GM/DL (3.2-5.2); BILIRUBIN,TOTAL 1.3 MG/DL (0.2-1.0); CALCIUM LEVEL 9.6 MG/DL (8.5-10.1); CREATININE FOR GFR 4.49 MG/DL (0.55-1.30); GLOMERULAR FILTRATION RATE 11.1 (>58); MAGNESIUM LEVEL 2.3 MG/DL (1.8-2.4); TOTAL PROTEIN 7.4 GM/DL (6.4-8.2); TROPONIN I 0.35 NG/ML (< 0.10)
[2020-01-12] MEDS ORDERED: LEVOTHYROXINE 125MCG TABLET (0.125MG) PO SCH (06:00)
[2020-01-12 08:00] VITALS: BP 120/77
[2020-01-12] MEDS: HumaLOG INSULIN (NovoLOG) PER UNIT SC SCH ×3 (08:17→17:47)
[2020-01-12] MEDS: (RENVELA) SEVELAMER **CARBONate** 800 MG TAB PO SCH ×2 (08:18→15:42)
[2020-01-12] MEDS: MIDODRINE 5 MG TAB PO SCH ×3 (08:18→15:42)
[2020-01-12] MEDS ORDERED: APIXABAN 5 MG TAB (ELIQUIS) PO SCH (09:00)
[2020-01-12] MEDS ORDERED: ATORVASTATIN 20 MG TAB PO SCH (09:00)
[2020-01-12] MEDS ORDERED: LEVEMIR (INSULIN DETEMIR) 1 UNITS/0.01ML SC SCH (09:00)
[2020-01-12] MEDS ORDERED: predniSONE 20 MG TAB PO SCH (09:00)
[2020-01-12 16:00] VITALS: BP 100/56
[2020-01-12] MEDS ORDERED: diphenhydrAMINE 50MG CAP PO ONE (16:00)
[2020-01-12] MEDS ORDERED: SLF 3 ML SYR IV PRN (16:15)
[2020-01-12] MEDS ORDERED: ELIQ2.5T PO (18:42)
[2020-01-12] MEDS ORDERED: APIXABAN 2.5 MG TAB (ELIQUIS) PO SCH (21:00)
--- NOTE | 2020-01-12 21:15 | DS.PDOC ---
Discharge Summary General Date of Admission Jan 11, 2020 at 21:48 Date of Discharge January 12, 2020 Attending Physician: JEMIMA CHAN MD Specialist/Consultants Involve: HOLLY ALFARO MD Discharge Summary PROCEDURES PERFORMED DURING STAY: Hemodialysis, 01/12/2020- 2.5 L of fluid removed ADMITTING DIAGNOSES: End-stage renal disease on hemodialysis for the past 6 years, with acute fluid overload and shortness of breath. Pulmonary embolus, subsegmental right lower lobe. Chronic pericardial effusion. Coronary artery disease status post PCI with stent on isosorbide, statin, aspirin Hypercholesterolemia. Insulin-dependent diabetes mellitus with peripheral neuropathy. Peripheral vascular disease. GERD Hypothyroidism DISCHARGE DIAGNOSES: End-stage renal disease on hemodialysis for the past 6 years, with acute fluid overload and shortness of breath. Pulmonary embolus, subsegmental right lower lobe. Chronic pericardial effusion. Coronary artery disease status post PCI with stent on isosorbide, statin, aspirin Hypercholesterolemia. Insulin-dependent diabetes mellitus with peripheral neuropathy. Peripheral vascular disease. GERD Hypothyroidism COMPLICATIONS/CHIEF COMPLAINT: Chf Exacerbation, Esrd. HISTORY OF PRESENT ILLNESS: Subha is a 49yo female with history of end-stage renal disease secondary to diabetic nephropathy, end-stage renal disease on hemodialysis as an outpatient on Sunday, , and Sunday via right thigh fistula, coronary artery disease status post PCI with stent, chronic pericardial effusion, peripheral vascular disease, hypothyroidism, who presented to the emergency department on 01/11/20 with chief complaint of significant swelling in her lower extremities and shortness of breath. She just had been discharged from [facility] one day prior on Sunday01/10/20 after an admission of 9 days for progressive shortness of breath secondary to a right pleural effusion and rll subsegmental PE. When she was discharged home on the , she reports being outside the next day, the , when it was unseasonably warm and subsequently becamev short of breath., She felt as though her lower extremity swelling was quickly worsening while also developing fluid blisters. It was at this point she felt it was necessary to come back to the ED. HOSPITAL COURSE: She was admitted under the care of the hospital service in the nephrology service was contacted, who recommended a plan dialysis for the next morning, Sunday, 01/11. They also feel as though she will need almost daily dialysis now for the time being as it appears her ESRD is worsening and her fluid status is significantly decompensated. She underwent a session of hemodialysis during which 2.5 L was removed fluid. Later in the day, hospitalist service was called to the bedside as patient was threatening to leave AGAINST MEDICAL ADVICE due to perceived critical comments from medical staff that precipitated the feeling of depressed mood. Hospital service spoke with the patient at length, emphasizing that should she leave AGAINST MEDICAL ADVICE that it was necessary that she present for her regularly scheduled Sunday hemodialysis. The next morning, so is to continue to take fluid off. In addition, it was stressed that she take Eliquis 2.5 mg twice a day rather than the previous prescription that were sent after her recent discharge. She verbally confirmed understanding all the instructions regarding outpatient follow-up and medication administration and signed the paperwork and subsequently left AGAINST MEDICAL ADVICE. DISCHARGE MEDICATIONS: Please see below. ALLERGIES: Please see below. PHYSICAL EXAMINATION ON DISCHARGE: VITAL SIGNS: Please see below. GENERAL APPEARANCE: female sitting in a chair. Energetic and interactive A & O x3. Appears older than stated age. HEENT: Normocephalic, atraumatic. Continues to have some mild scleral icterus, and her pupils remain poorly reactive to light. Pterygium present over medial sclera. Moist mucous membranes. Some lower front teeth absent. NECK: Supple with no thyromegaly, lymphadenopathy, or JVD. RESPIRATORY: Mild end expiratory crackles present over right side posteriorly. Former catheter insertion site is clean, dry, and intact. No subq air apprecia renetta around former insertion site. Symmetric chest expansion. Breathing room air. Speaking full sentences. CARDIOVASCULAR: Regular rate, regular rhythm. Normal S1, S2. No murmurs, rubs or gallops appreciated. ABDOMEN: Obese. Soft, no significant tenderness. No distention. Normoactive bowel sounds. No guarding or rigidity appreciated. No significant hepatomegaly appreciated. Neg HJR. EXTREMITIES: 1+ bilateral LE pitting edema with chronic venous stasis changes. There remains some bruising and petechiae of bilateral dorsal forearms. NEUROLOGICAL: Alert and oriented x3. No focal deficits appreciated. Non- dysarthric speech. PSYCHIATRIC: Mood and affect appear appropriate LABORATORY DATA: Please see below. IMAGING: Chest Xray, 01/11/2020- Tiny right apical pneumothorax that is similar in size compared to the prior chest x-ray on 01/08/2020 and measures approximately 5%. Small left pleural effusion. Bibasilar atelectasis. Vascular LE Duplex U/S, 01/11/2020- No deep vein thrombosis in the veins imaged in both lower extremities. PROGNOSIS: Fair ACTIVITY: As tolerated DIET: Diabetic/consistent carbohydrate diet DISPOSITION: 07 Against Medical Advice. DISCHARGE INSTRUCTIONS & ITEMS TO FOLLOWUP ON ON OUTPATIENT: -Please report to regular scheduled Sunday morning hemodialysis session and continue with hemodialysis as instructed by nephrology service. -Please stop taking Eliquis at previous dosage from prior hospital discharge and begin taking Eliquis 2.5 mg 2 times a day -Follow-up with primary care physician in the next 7 days -Should symptoms that precipitated this presentation return and/or acutely worsened, please seek immediate medical care/return to the ED DISCHARGE CONDITION: Stable TIME SPENT ON DISCHARGE: 37 minutes Vital Signs/I&Os Vital Signs Date Time Temp Pulse Resp B/P (MAP) Pulse Ox O2 Delivery O2 Flow Rate FiO2 01/12/20 16:00 98.1 82 18 100/56 (71) 100 Room Air I&O- Last 24 Hours up to 6 AM 01/12/20 06:00 Intake Total 300 ml Output Total 0 ml Balance 300 ml Laboratory Data Labs 24H Laboratory Tests 2 01/11/20 21:31: Blood Gas Bicarbonate Standard 20.6L, Arterial Blood pH 7.336L, Arterial Blood Partial Pressure CO2 39.6, Arterial Blood Partial Pressure O2 92.6, Arterial Blood Total CO2 21.9L, Arterial Blood HCO3 20.7L, Arterial Blood Base Excess -4 .7L, Arterial Blood Oxygen Saturation 96.6 01/11/20 23:54: Bedside Glucose (Misc Panel) 256H 01/11/20 23:55: Lactic Acid Level 2.8*H 01/12/20 01:10: Troponin I 0.37H 01/12/20 04:41: Anion Gap 13, Glomerular Filtration Rate 11.1L, Calcium Level 9.6, Magnesium Level 2.3, Total Bilirubin 1.3H, Aspartate Amino Transf (AST/SGOT) 107H, Alanine Aminotransferase (ALT/SGPT) 134H, Alkaline Phosphatase 155H, Troponin I 0.35H, Total Protein 7.4, Albumin 3.3, Albumin/Globulin Ratio 0.8L 01/12/20 04:42: Immature Granulocyte % (Auto) 1.0, Neutrophils (%) (Auto) 83.5H, Lymphocytes (%) (Auto) 8.3L, Monocytes (%) (Auto) 7.1H, Eosinophils (%) (Auto) 0.0, Basophils (%) (Auto) 0.1, Neutrophils # (Auto) 7.0, Lymphocytes # (Auto) 0.7L, Monocytes # (Auto) 0.6, Eosinophils # (Auto) 0.0, Basophils # (Auto) 0.0, Nucleated Red Blood Cells % (auto) 1.2H, Lactic Acid Followup at 4 Hours 4.6*H 01/12/20 06:45: Troponin I 0.36H 01/12/20 09:49: Troponin I 0.38H 01/12/20 17:14: Bedside Glucose (Misc Panel) 137H CBC/BMP Laboratory Tests 01/12/20 04:41 01/12/20 04:42 FSBS Laboratory Tests Test 01/11/20 23:54 01/12/20 17:14 Range/Units Bedside Glucose (Misc Panel) 256 137 70-105 MG/DL Discharge Medications Scheduled Apixaban (Eliquis) 2.5 Mg Tablet, 2.5 MG PO BID Aspirin (Aspirin) 81 Mg Tab.chew, 81 MG PO DAILY, (Reported) Atorvastatin Calcium (Atorvastatin Calcium) 20 Mg Tablet, 20 MG PO DAILY, (Reported) Ergocalciferol (Vitamin D2) (Vitamin D2) 50,000 Units Cap, 50,000 CAP PO QWEEK, (Reported) sunday Folic Acid/Vit B Complex and C ([place]-Antonina Tablet) 0.8 Mg Tablet, 0.8 MG PO DAILY, (Reported) Insulin Glargine,Hum.rec.anlog (Basaglar Kwikpen U-100) 100 Unit/1 Ml Insuln.pen, 20 UNIT SC DAILY, (Reported) Levothyroxine Sodium (Levothyroxine Sodium) 125 Mcg Tablet, 125 MCG PO QAM, (Reported) Midodrine HCl (Midodrine HCl) 5 Mg Tablet, 5 MG PO TID, (Reported) Omeprazole (Omeprazole) 40 Mg Capsule.dr, 40 MG PO BID, (Reported) Prednisone (Prednisone) 20 Mg Tablet, 20 MG PO DAILY, (Reported) 20mg daily for 4 days started 01/10/20 Sevelamer Carbonate (Sevelamer Carbonate) 800 Mg Tablet, 1,600 MG PO TID, (Reported) Scheduled PRN Magnesium Hydroxide (Milk of Magnesia) 400 Mg/5 Ml Oral.susp, 30 ML PO DAILY PRN for CONSTIPATION, (Reported) Polyethylene Glycol 3350 (Miralax) 119 Gm Powder, 17 GM PO BID PRN for CONSTIPATION, (Reported) Allergies Coded Allergies: Penicillins (Verified Allergy, Unknown, UNKNOWN CHILDHOOD REACTION, 09/11/18) PER [facility] RECORDS PT HAS RECEIVED MEROPENEM AND CEFEPIME IN THE PAST GARRISON SAUNDERS D.O. Jan 12, 2020 21:15
[2020-01-12] MEDS ORDERED: SLF 3 ML SYR IV SCH (22:00)
--- NOTE | 2020-01-13 11:55 | HPE ---
DATE OF ADMISSION: 01/11/2020 CHIEF COMPLAINT: Painful swollen bilateral lower legs. SPECIALIST CONSULT: Dr. Mcdaniel, nephrology. HISTORY OF PRESENT ILLNESS: This is a 49-year-old female with history of end stage renal disease secondary to diabetic nephropathy who receives hemodialysis. She was recently discharged on 01/10/2020 after having been treated four consecutive days of hemodialysis for dyspnea, fluid overload, small pericardial effusion, small right-sided pneumothorax, transaminitis, fluid overload, pulmonary emboli, hypotension. She states she was at home; she got up the morning of the , took her Levothyroxine and then ate her breakfast. She states she was feeling well. At lunch she said she was quite fatigued. She had a sandwich, some ice chips and noticed that her legs were starting to swell and by early evening her legs were swollen. She had developed blisters on the right lower leg, both legs were swollen. She states she had become short of breath and came to the emergency room. Upon arrival blood pressure was 95/52, pulse 83, respirations 20, temp 97.4, O2 sat on room air was 100%. Laboratory studies drawn. She had venous blood gas which showed pH 7.25, pCO2 54.1, pO2 32, HCO3 27.5, total CO2 29, O2 sat 44.9%. Subsequent arterial blood gas pH 7.336, pCO2 39.6, pO2 was good at 92.6, HCO3 20.7, total CO2 21.9, O2 sat 96.6%. She was not hyperventilating. White count was 9.3, hemoglobin 12.5, hematocrit 41.9, platelets 78 which is what they were on discharge. Sodium 135, potassium 4.3, chloride 96, CO2 28, BUN 41, creatinine 4.15. Non-fasting glucose 277. Total bilirubin 1.4, direct bilirubin 0.6. AST was elevated at 110 and ALT was elevated at 150. proBNP 20,373. Lipase 326. Chest x-ray was done and showed bibasilar atelectasis, tiny right apical pneumothorax similar in size compared to the prior chest x-ray on 01/08/2020, measures approximately 5%. Small left pleural effusion is present. No cardiomegaly. Heart mediastinum unremarkable. Discussed with Dr. Mcdaniel. The patient will be admitted, he will dialyze the patient tomorrow. The patient will be admitted to PCU. Will obtain lactic acid as hers had been quite high on her recent admission. Will get bilateral ultrasound to rule out DVTs. The patient had recently on her previous admission been on Eliquis for probable pulmonary emboli. She had taken it in hospital, had not taken it on from discharge, will be started, will get ultrasound to rule out DVT. The patient will be admitted observation status to PCU for CHF, end-stage renal disease and hemodialysis. MEDICAL HISTORY: 1. End-stage renal disease with recent fluid overload. 2. Pulmonary emboli. 3. Pericardial effusion. 4. History of coronary artery disease with stent. 5. History of hypercholesterolemia. 6. History of insulin-dependent diabetes with peripheral neuropathy. 7. History of peripheral vascular disease. 8. History of GERD. 9. History of anemia of chronic disease. 10. History of hypothyroidism. 11. She is legally blind. PAST SURGICAL HISTORY: 1. Hysterectomy. 2. She has had fistulas, right thigh fistula, left upper extremity fistula. ALLERGIES: PENICILLIN UNKNOWN CHILDHOOD REACTION; PER [facility] RECORDS THE PATIENT HAS RECEIVED MEROPENEM AND CEFEPIME IN THE PAST. REVIEW OF SYSTEMS: 12-point review of systems was negative except as listed in the HPI. SOCIAL HISTORY: She smoked cigarettes 1-2 packs per day for 30 years. She does not drink alcohol. She does not use recreational drugs. TRAVEL HISTORY: No recent travel. FAMILY HISTORY: Was reviewed and is noncontributory. HOME MEDICATIONS: * She is to be on Eliquis 10 mg PO twice daily through the and then on Monday 01/15 start Eliquis 5 mg PO twice daily. * Prednisone 20 mg PO through and then on 01/14 to 01/17 10 mg PO daily. * Vitamin D 50,000 units weekly. * Mild of Magnesia 30 mL daily PO PRN constipation. * Folic Acid with Vitamin B Complex and C [place]-Antonina tablet 0.8 mg PO daily. * Basaglar Insulin 20 units subcu daily, she takes this in the morning. * Omeprazole 40 mg PO twice daily. * Atorvastatin 20 mg PO daily. * Levothyroxine 125 mcg PO in morning. * Midodrine 5 mg PO three times a day. * MiraLax one packet daily. * Sevelamer Carbonate 800 mg tablet, takes 1600 mg PO three times a day. PHYSICAL EXAMINATION: GENERAL: 49-year-old cooperative female. The patient is alert and oriented x3. VITAL SIGNS; Height 63 inches, weight 66.82 kilograms, BMI 26.1. Blood pressure 96/60, pulse 84, respirations 20, pulse ox 100% on room air. HEENT: Pupils equal and reactive to light. EOMs intact, sclerae clear, conjunctivae normal. No facial asymmetry. Pharynx, tongue and gums pink and moist. Tongue is midline. NECK: Supple without lymphadenopathy, no thyromegaly, no goiter. Jugular venous pressures are 2-4 at 60 degrees. CHEST: Decreased breath sounds, no wheeze or retraction. HEART: Regular without murmur gallop. ABDOMEN: Soft, distended, no masses, pulsations or bruits, no organomegaly, bowel sounds are hypoactive. /RECTAL: Not done. EXTREMITIES: Bilateral 2-3+ pedal, ankle and pretibial edema with blisters on the lower right azpata area. Peripheral pulses equal and palpable bilaterally. NEURO: Cranial nerves II-XII grossly intact. IMPRESSION AND PLAN: Admit observation status for acute exacerbation of CHF, end-stage renal disease. Lower extremity edema, blisters, progressive shortness of breath: The patient will be admitted observation status. 1. CHF, end-stage renal disease: Discussed with Dr. Mcdaniel, planned dialysis. 2. Lower extremity edema with blisters: Make sure there is no DVT, will get bilateral ultrasound. 3. Pulmonary emboli: Resume Eliquis as she was to take it upon discharge. 4. Small pleural effusion: Oral coagulation as described on discharge. 5. Coronary artery disease: Continue Isosorbide, Aspirin, statin. 6. Diabetes: Fingerstick blood sugars with sliding scale insulin coverage, continue Levemir 20 units daily as at home. 7. Hypothyroidism: Continue Levothyroxine, check TSH, free T4. Follow up lactic acid. MTDD
--- NOTE | 2020-01-13 12:19 | CR ---
DATE OF CONSULTATION: 01/12/2020 REQUESTING PHYSICIAN: Nora Anne, nurse practitioner with the hospitalist group. CONSULTING PHYSICIAN: Dr. Darcie Mcdaniel REASON FOR CONSULTATION: Management of end stage renal disease and fluid overload. CHIEF COMPLAINT: Patient presented to the hospital yesterday with weakness, worsening shortness of breath, and lower extremity edema. HISTORY OF PRESENT ILLNESS: Subha Trivedi is a 49-year-old female with a history of end stage renal disease, on hemodialysis via the right thigh arteriovenous (AV) graft, history of congestive heart failure with pleural and pericardial effusions, recently admitted at [facility] on 12/31/2019 and was discharged 2 days ago from the hospital. During that hospitalization, she required a pigtail catheter on the right side, and she required serial hemodialysis and optimization of fluid status. Once she was optimized, she was sent home, and patient reports that when she went home she ate a few cups of ice, and she went outside in the heat with her son, and she did not feel well, and she started getting leg swelling then blisters in the left leg, so she presented back to the emergency room, where she was found to be fluid overloaded. She was admitted overnight under the hospitalist service. Case was discussed with myself by the admitting nurse practitioner, and decision was made to dialyze the patient again today for optimization of her volume status. I saw and evaluated the patient today morning at the bedside. She was getting dialysis, and she was tolerating the hemodialysis procedure well. MEDICAL HISTORY: 1. End stage renal disease, on hemodialysis every Sunday, , Sunday as outpatient. 2. Chronic diastolic congestive heart failure. 3. Peripheral vascular disease. 4. Coronary artery disease, status post stents. 5. Diabetes mellitus, type 2. 6. Latest echocardiogram showed small pericardial effusion. 7. Recent pleural effusion requiring pigtail catheter placement during hospitalization about 2 weeks ago. 8. Legal blindness. 9. Hypothyroidism. SURGICAL HISTORY: 1. Status post hysterectomy in the past. 2. Status post right thigh AV graft placement. 3. History of peritoneal dialysis (PD) catheter placement and removal in the past. ALLERGIES: She is allergic to PENICILLIN. FAMILY HISTORY: Chronic kidney disease in the family members. SOCIAL HISTORY: Patient lives at home. She denies any smoking, illicit drug use, or alcohol abuse. REVIEW OF SYSTEMS: CONSTITUTIONAL: When she came, she was not feeling well. She said that "I was feeling horrible." Otherwise, she denies any fevers or chills. EYES: She reports legal blindness. ENT: She denies any dysphagia or odynophagia. CARDIOVASCULAR: She reports lower extremity edema and blisters. RESPIRATORY: She reports moderate shortness of breath. GASTROINTESTINAL: She denies any nausea or vomiting. GENITOURINARY: She reports very minimal urine output. MUSCULOSKELETAL: She reports blistering of the lower extremities. SKIN: She reports blisters and ulcers in the lower extremities. ENDOCRINE: She reports diabetes mellitus, type 2. HEMATOLOGIC/ONCOLOGIC: She denies any easy bleeding or bruising. PSYCHIATRIC: She denies any depression or anxiety at this time. CENTRAL NERVOUS SYSTEM: She reports legal blindness. Otherwise, she denies any weakness or stroke. All other review of systems is negative. PHYSICAL EXAMINATION: GENERAL: Patient is awake, alert, oriented times three, lying in bed getting hemodialysis done. VITAL SIGNS: Temperature is 97.6 degrees Fahrenheit, blood pressure 106/65, pulse is 79, respiratory rate of 17, saturating 100% on room air. HEAD AND NECK: Extraocular muscles intact. She is legally blind. Very poor vision. Mucous membranes are moist. Neck is supple. Mildly elevated jugular venous distention (JVD). CARDIOVASCULAR: S1, S2, regular rate. Edema 2+ of the bilateral lower extremities with blisters in the leg noted. RESPIRATORY: Mildly decreased breath sounds at the bases with decrease vocal resonance at the bases bilaterally. ABDOMEN: Soft. Positive bowel sounds. Nontender. No organomegaly. Old surgical scars are noted. GENITOURINARY: Bladder is not palpable. MUSCULOSKELETAL: Patient has an AV graft in the right thigh, which is being used for dialysis, and blisters and edema of the lower extremity, as noted above. CENTRAL NERVOUS SYSTEM: She has legal blindness. Otherwise she is oriented times three. She moves all extremities and follows commands. PSYCHIATRIC: Normal mood and affect. LABORATORY REVIEW: CBC showed a WBC 8.4, hemoglobin 13, platelets are 74. BMP showed sodium 135, potassium 5, chloride 99, bicarbonate 23, BUN 50, creatinine 4.4, lactic acid 4.6. Total bilirubin 1.3, AST 107, ALT 134, alkaline phosphatase 155. Troponin is 0.38. IMAGING: Doppler of the lower extremities was done, which showed no deep venous thrombosis (DVT). Chest x-ray was done, which showed right apical pneumothorax, similar in size. Small left pleural effusion and bibasilar atelectasis. CURRENT INPATIENT MEDICATIONS: Patient's medications include: - Eliquis 10 mg by mouth twice a day, which will be changed to 5 mg twice a day on January 14 - Lipitor 20 mg by mouth daily - insulin Levemir 20 units subcutaneous daily - insulin Lispro sliding scale - levothyroxine 125 mcg by mouth daily - midodrine 5 mg by mouth three times a day - Prilosec 40 mg by mouth twice a day - prednisone 20 mg by mouth daily for three doses and then 10 mg by mouth daily - Renvela 1600 mg by mouth three times a day - vitamin D ASSESSMENT AND PLAN: 1. End stage renal disease. Patient is hemodialysis dependent. She is fluid overloaded. She is being gently dialyzed. Ultrafiltration goal will be 2.5 liters. Another session of hemodialysis will be done tomorrow. 2. Acute on chronic decompensated diastolic congestive heart failure. Patient is significantly volume overloaded. As mentioned above, she will get another session of ultrafiltration done tomorrow morning until all of her edema gets better. She will get [id number] dialysis and ultrafiltration sessions. 3. Congestive hepatopathy. Her elevated bilirubin and AST and ALT level are most likely secondary to congestive hepatopathy. Continue the optimization of fluid status. If liver function tests (LFTs) remain high, then atorvastatin will be stopped. 4. Recent pulmonary embolism (PE). Deep venous thrombosis (DVT) is negative on the Doppler of the lower extremity. Continue current dose of Eliquis 10 mg by mouth twice a day, which will be tapered down to 5 mg twice a day of Eliquis. 5. Diabetes mellitus, type 2, insulin dependent. Continue current dose of insulin Levemir and sliding scale. Glucose levels are within the acceptable range. 6. Hypothyroidism. Continue current dose of levothyroxine 125 mcg by mouth daily. 7. Chronic hypotension. Continue midodrine 5 mg by mouth three times a day. 8. Chronic kidney disease, mineral bone disease. Continue Renvela 1600 mg by mouth with meals three times a day. 9. Elevated lactic acid level. It is secondary to decompensated congestive heart failure. Her lactic acid level gets better once fluid status gets optimized. Thank you for involving me in the care of this patient. I shall be happy to follow the patient along with you tomorrow morning. LESVIA
[2020-01-15] MEDS ORDERED: predniSONE 10 MG TAB PO SCH (09:00)
[2020-01-16] MEDS ORDERED: APIXABAN 5 MG TAB (ELIQUIS) PO SCH (09:00)
== END 2020-01-12 19:12 | disposition left against medical advice (07) ==
LOC: M ED 18:21 → M ED INP 21:48 → ENRESERV 23:29 → M PCU 01-12 00:22
PROVIDERS: ADMIT Internal Medicine; ATTEND Internal Medicine
DX: N18.6 End stage renal disease (principal); I50.33 Acute on chronic diastolic (congestive) heart failure; R94.5 Abnormal results of liver function studies; E87.70 Fluid overload, unspecified; R06.02 Shortness of breath; I26.99 Other pulmonary embolism without acute cor pulmonale; I31.3 Pericardial effusion (noninflammatory); I95.9 Hypotension, unspecified; I25.10 Atherosclerotic heart disease of native coronary artery without angina pectoris; M85.80 Other specified disorders of bone density and structure, unspecified site; E87.2 Acidosis; Z95.5 Presence of coronary angioplasty implant and graft; E78.00 Pure hypercholesterolemia, unspecified; E11.40 Type 2 diabetes mellitus with diabetic neuropathy, unspecified; I73.9 Peripheral vascular disease, unspecified; K21.9 Gastro-esophageal reflux disease without esophagitis; E03.9 Hypothyroidism, unspecified; R60.0 Localized edema; F32.9 Major depressive disorder, single episode, unspecified; H54.8 Legal blindness, as defined in USA; Z99.2 Dependence on renal dialysis; Z79.899 Other long term (current) drug therapy; Z79.01 Long term (current) use of anticoagulants; Z79.82 Long term (current) use of aspirin; Z79.52 Long term (current) use of systemic steroids; Z88.0 Allergy status to penicillin; Z87.891 Personal history of nicotine dependence

== ENCOUNTER 2020-01-20 07:02 | Inpatient (IN) | payer OTHER ==
[~2020-01-20] VITALS: Ht 160 cm; Wt 80.0 kg
[~2020-01-20 07:02] MED LIST changes: +ASPI81CH33 PO; +ELIQ2.5T PO; -VITAMIN D 50,000 UNITS CAPSULE (ERGOCALCIFEROL 1.25MG) PO SCH
[2020-01-20] MEDS ORDERED: GABA-1171 PO (07:25)
--- NOTE | 2020-01-20 08:07 | REPVR ---
PROCEDURE INFORMATION: Exam: CT Head Without Contrast Exam date and time: 01/20/2020 8:02 AM Age: 49 years old Clinical indication: Syncope and collapse TECHNIQUE: Imaging protocol: Computed tomography of the head without contrast. Radiation optimization: All CT scans at this facility use at least one of these dose optimization techniques: automated exposure control; mA and/or kV adjustment per patient size (includes targeted exams where dose is matched to clinical indication); or iterative reconstruction. COMPARISON: MRI-Brain without Contrast 01/02/2020 4:02 PM FINDINGS: Brain: Normal. No hemorrhage. Unremarkable white matter. No mass effect. Cerebral ventricles: No ventriculomegaly. Bones/joints: Unremarkable. No acute fracture. Paranasal sinuses: Visualized sinuses are unremarkable. No fluid levels. Mastoid air cells: Visualized mastoid air cells are well aerated. Soft tissues: Unremarkable. IMPRESSION: No acute intracranial abnormality. Electronically signed by: Gabrielle Colorado On 01/20/2020 08:07:20 AM
--- NOTE | 2020-01-20 08:35 | REPVR ---
PROCEDURE INFORMATION: Exam: XR Chest, 1 View Exam date and time: 01/20/2020 8:08 AM Age: 49 years old Clinical indication: Condition or disease; Other: Blood pressure problem; Additional info: Syncope/near-syncope TECHNIQUE: Imaging protocol: XR of the chest Views: 1 view. COMPARISON: CR PORTABLE CHEST X-RAY 01/11/2020 7:07 PM FINDINGS: Lungs: Mild infiltrates in the lower lobes bilaterally. Pleural space: Blunting of the left costophrenic angle. No pneumothorax. Heart/Mediastinum: Unremarkable. No cardiomegaly. Bones/joints: Unremarkable. IMPRESSION: Mild infiltrates in the lower lobes bilaterally. Pneumonia versus atelectasis. Electronically signed by: Rhona Reynolds On 01/20/2020 08:35:31 AM
[2020-01-20 08:53] LABS: VENOUS BASE EXCESS -6.4 (-2.0-2.0); VENOUS O2 SATURATION 92.8 % (60.0-80.0); VENOUS PARTIAL PRESSURE CO2 43.1 mmHg (38.0-50.0); VENOUS PARTIAL PRESSURE O2 77.4 mmHg (30.0-50.0); VENOUS PH 7.285 UNITS (7.330-7.430); VENOUS STANDARD HCO3 19.2 MEQ/L; VENOUS TOTAL CO2 21.4 MEQ/L (24.0-28.0)
[2020-01-20] MEDS ORDERED: ELIQ2.5T PO (08:56)
[2020-01-20] MEDS ORDERED: PRED10TA2 PO (08:56)
[2020-01-20] MEDS ORDERED: ISOS30TA4 PO (08:56)
[2020-01-20] MEDS ORDERED: METO50TA7 PO (08:56)
[2020-01-20 09:00] LABS: BASO % 0.4 % (0.0-1.0); EOS % 0.3 % (0.0-3.0); HEMATOCRIT 39.6 % (36.0-47.0); HEMOGLOBIN 11.7 g/dl (12.0-15.5); LYMPH # 1.2 10^3/uL (1.5-5.0); LYMPH % 12.7 % (24.0-44.0); MEAN CORPUSCULAR HEMOGLOBIN 32.4 pg (27.0-33.0); MEAN CORPUSCULAR HGB CONC 29.5 g/dl (32.0-36.5); MEAN CORPUSCULAR VOLUME 109.7 fl (80.0-96.0); MONO # 0.6 10^3/uL (0.0-0.8); MONO % 5.8 % (0.0-5.0); NEUTROPHILS # 7.7 10^3/uL (1.5-8.5); RED BLOOD COUNT 3.61 10^6/uL (4.00-5.40); WHITE BLOOD COUNT 9.6 10^3/uL (4.0-10.0)
[2020-01-20] MEDS ORDERED: predniSONE 10 MG TAB PO SCH (09:00)
[2020-01-20 09:01] LABS: PLATELET COUNT, AUTOMATED 99 10^3/uL (150-450)
[2020-01-20 09:39] LABS: CALCIUM LEVEL 8.9 MG/DL (8.5-10.1); CK-MB VALUE MASS 16.6 NG/ML (<3.6); CREATININE FOR GFR 6.09 MG/DL (0.55-1.30); FREE T4 0.74 NG/DL (0.76-1.46); GLOMERULAR FILTRATION RATE 7.8 (>58); INR 1.39; MAGNESIUM LEVEL 2.5 MG/DL (1.8-2.4); MB/CK RELATIVE INDEX 13.61 (< OR =4); POTASSIUM SERUM 4.3 MEQ/L (3.5-5.1); PROTHROMBIN TIME 17.4 SECONDS (12.5-14.3); THYROID STIMULATING HORMONE 12.5 uIU/ML (0.358-3.740); TROPONIN I 0.43 NG/ML (< 0.10)
--- NOTE | 2020-01-20 09:43 | REPVR ---
PROCEDURE INFORMATION: Exam: CT Chest Without Contrast Exam date and time: 01/20/2020 9:33 AM Age: 49 years old Clinical indication: Chest pain; Additional info: Infiltrate vs atelectasis TECHNIQUE: Imaging protocol: Computed tomography of the chest without contrast. 3D rendering (Not supervised by radiologist): MIP and/or 3D reconstructed images were created by the technologist. Radiation optimization: All CT scans at this facility use at least one of these dose optimization techniques: automated exposure control; mA and/or kV adjustment per patient size (includes targeted exams where dose is matched to clinical indication); or iterative reconstruction. COMPARISON: CT Chest with contrast 01/07/2020 10:46 AM FINDINGS: Lungs: There is focal airspace opacification within the right upper lobe abutting the fissure. There is right basilar compressive atelectasis/consolidation. There are streaky left basilar opacities, compatible with atelectasis. Pleural space: There is a moderate, partially loculated right pleural effusion. There is a trace left pleural effusion. Heart: There are coarse calcific atherosclerotic changes of the coronary arteries. There is a small pericardial effusion, unchanged. Mediastinal space: There is stranding along the anterior mediastinum, unchanged. Aorta: Unremarkable. No aortic aneurysm. Lymph nodes: There is a 15 mm right paratracheal lymph node. There is a 1.5 cm subcarinal lymph node. Bones/joints: Unremarkable. No acute fracture. Soft tissues: Unremarkable. IMPRESSION: 1. Increased moderate, loculated right pleural effusion with associated compressive atelectasis/consolidation. 2. Persistent small pericardial effusion. 3. Trace left pleural effusion and left basilar atelectasis. Electronically signed by: Gabrielle Colorado On 01/20/2020 09:42:51 AM
[2020-01-20] MEDS ORDERED: NS 500 ML IV SCH (11:15)
[2020-01-20] MEDS ORDERED: DEXTROSE 50% 50 ML SYRINGE IV PRN (11:15)
[2020-01-20] MEDS ORDERED: MIRALAX *UNIT DOSE* 17GM PACKET PO PRN (11:15)
[2020-01-20] MEDS ORDERED: GLUCOSE 4GM CHEW TABLET PO PRN (11:15)
[2020-01-20] MEDS ORDERED: GLUCAGON INJ 1MG VIAL SC PRN (11:15)
[2020-01-20] MEDS: GABAPENTIN 100 MG CAP PO SCH ×2 (11:51→21:12)
[2020-01-20] MEDS: ASPIRIN 81 MG CHEW TABLET PO SCH (11:51)
[2020-01-20] MEDS: ATORVASTATIN 20 MG TAB PO SCH (11:51)
[2020-01-20] MEDS: LEVOTHYROXINE 125MCG TABLET (0.125MG) PO SCH (11:51)
[2020-01-20] MEDS: HumaLOG INSULIN (NovoLOG) PER UNIT SC SCH ×3 (12:00→21:00)
[2020-01-20] MEDS: LEVEMIR (INSULIN DETEMIR) 1 UNITS/0.01ML SC SCH (12:24)
[2020-01-20] MEDS: DOCUSATE SODIUM 100 MG CAP PO SCH (12:24)
[2020-01-20] MEDS: APIXABAN 2.5 MG TAB (ELIQUIS) PO SCH ×2 (12:31→21:12)
[2020-01-20] MEDS: OMEPRAZOLE 20 MG CAP PO SCH ×2 (12:31→21:12)
[2020-01-20] MEDS: MIDODRINE 5 MG TAB PO SCH ×2 (12:32→16:34)
[2020-01-20] MEDS: (RENVELA) SEVELAMER **CARBONate** 800 MG TAB PO SCH ×2 (12:32→18:17)
[2020-01-20] MEDS: cefTRIAXone SOD 1 GM in D5W MINI-BAG PLUS 50 ML IV SCH (12:35)
[2020-01-20 16:03] VITALS: BP 92/54
--- NOTE | 2020-01-20 17:49 | HPEPDOC ---
General Date of Admission Jan 20, 2020 at 10:58 Date of Service: Jan 20, 2020 Attending Physician: RON GLASS DO Chief Complaint The patient is a 49-year-old female admitted with a reason for visit of Esrd, Falls, Hypotension. Source: Patient Exam Limitations: No limitations History of Present Illness Mrs. Trivedi is a 49 year old female with ESRD on dialysis (T,TH, SAT), diabetic nephropathy and neuropathy, and CAD s/p stent here with hypotension and frequent falls. She was recently hospitalized from 01/11/2020 to 01/13/2020 and left home AMA. She did not do well at home. She fell 7 times at home over the past week. She has scrapped up her arm. She would have lightheadedness and pass out. There was some question to if she was taking her Midodrine. In addition, she has been telling me she has cut back on her fluid intake. Before, it was 32 ounces (about 1000mL), but she cut back to 16 ounces (about 500mL). She has swe lling of her legs and has been trying to reduce the edema. Otherwise, when I saw her, she denies any fever, chest pain, diarrhea, or new rashes. She has dyspnea on exertion. She has abdominal pain secondary to constipation. She has neuropathy in her feet. She cannot see color and does not know if there are any changes to her feet. Her feet are chronically cold and weepy. Nephrology, Dr. Patt Acevedo saw her in the ED, no dialysis today, but possibly tomorrow Home Medications Scheduled Apixaban (Eliquis) 2.5 Mg Tablet, 2.5 MG PO BID, (Reported) Aspirin (Aspirin) 81 Mg Tab.chew, 81 MG PO DAILY, (Reported) Atorvastatin Calcium (Atorvastatin Calcium) 20 Mg Tablet, 20 MG PO DAILY, (Reported) Ergocalciferol (Vitamin D2) (Vitamin D2) 50,000 Units Cap, 50,000 CAP PO QWEEK, (Reported) sunday Folic Acid/Vit B Complex and C (April-Antonina Tablet) 0.8 Mg Tablet, 0.8 MG PO DAILY, (Reported) Gabapentin (Gabapentin) 100 Mg Capsule, 200 MG PO BID, (Reported) Insulin Glargine,Hum.rec.anlog (Basaglar Kwikpen U-100) 100 Unit/1 Ml Insuln.pen, 20 UNIT SC DAILY, (Reported) Isosorbide Mononitrate (Isosorbide Mononitrate ER) 30 Mg Tab.er.24h, 30 MG PO DAILY, (Reported) Levothyroxine Sodium (Levothyroxine Sodium) 125 Mcg Tablet, 125 MCG PO QAM, (Reported) Metoprolol Tartrate (Metoprolol Tartrate) 50 Mg Tablet, 50 MG PO BID, (Reported) Midodrine HCl (Midodrine HCl) 5 Mg Tablet, 5 MG PO TID, (Reported) Omeprazole (Omeprazole) 40 Mg Capsule.dr, 40 MG PO BID, (Reported) Prednisone (Prednisone) 10 Mg Tablet, 10 MG PO DAILY, (Reported) Sevelamer Carbonate (Sevelamer Carbonate) 800 Mg Tablet, 1,600 MG PO WM, (Reported) Scheduled PRN Magnesium Hydroxide (Milk of Magnesia) 400 Mg/5 Ml Oral.susp, 30 ML PO DAILY PRN for CONSTIPATION, (Reported) Polyethylene Glycol 3350 (Miralax) 119 Gm Powder, 17 GM PO BID PRN for CONSTIPATION, (Reported) Allergies Coded Allergies: Penicillins (Verified Allergy, Unknown, UNKNOWN CHILDHOOD REACTION, 09/11/18) PER [facility] RECORDS PT HAS RECEIVED MEROPENEM AND CEFEPIME IN THE PAST Past Medical History Medical History 1. End-stage renal disease on dialysis on ,, SUN. 2. Pulmonary emboli on Eliquis. 3. Pericardial effusion. 4. History of coronary artery disease with stent. 5. History of hypercholesterolemia. 6. History of insulin-dependent diabetes with peripheral neuropathy. 7. History of peripheral vascular disease. 8. History of GERD. 9. History of anemia of chronic disease. 10. History of hypothyroidism. 11. She is legally blind in the left eye Surgical History 1. Hysterectomy. 2. She has had fistulas, right thigh fistula, left upper extremity fistula. Social History * Smoker: former Smoker (smoked for 30 years, 2ppd) Alcohol: Denies Drugs: denies A-FIB/CHADSVASC A-FIB History Current/History of A-Fib/PAF?: No Review of Systems Constitutional: Denies: Fever Eyes: Reports: Other (Legally blind in left eye. Blurry right eye); Denies: Vision change Skin: Denies: Rash Pulmonary: Reports: Other Symptoms (dyspnea on exertion) Cardiovascular: Denies: Chest Pain Gastrointestinal: Reports: Abdominal Pain (secondary to abdominal pain), Constipation; Denies: Nausea Genitourinary: Reports: Other Symptoms (No urine output) Hematologic: Reports: Bruising Musculoskeletal: Reports: Muscle Pain (legs/neuropathy) Neurological: Reports: Weakness Psych: Reports: Anxiety (Occasional) Physical Examination General Exam: Positive: Alert, Cooperative, No Acute Distress Eye Exam: Positive: EOMI; Negative: Sclera icteric ENT Exam: Positive: Atraumatic Neck Exam: Positive: Supple Chest Exam: Positive: Diminished Heart Exam: Positive: Rate Normal, Regular Rhythm Abdomen Exam: Positive: BS Hypoactive, Soft, Tenderness (mild tenderness in the left lower quadrant) Extremity Exam: Positive: Edema (bilateral pitting edema) Skin Exam: Positive: Other skin issue (Feet are erythematous, cold, and weeping) Neuro Exam: Positive: Cranial Nerves 3-12 NL Psych Exam: Positive: Mental status NL, Mood NL Vital Signs Vital Signs Date Time Temp Pulse Resp B/P (MAP) Pulse Ox O2 Delivery O2 Flow Rate FiO2 01/20/20 16:03 98.2 76 20 92/54 (67) 98 Room Air Laboratory Data Labs 24H Laboratory Tests 2 01/20/20 08:33: Immature Granulocyte % (Auto) 0.8, Neutrophils (%) (Auto) 80.0H, Lymphocytes (%) (Auto) 12.7L, Monocytes (%) (Auto) 5.8H, Eosinophils (%) (Auto) 0.3, Basophils (%) (Auto) 0.4, Neutrophils # (Auto) 7.7, Lymphocytes # (Auto) 1.2L, Monocytes # (Auto) 0.6, Eosinophils # (Auto) 0.0, Basophils # (Auto) 0.0, Nucleated Red Blood Cells % (auto) 0.0, Immature Platelet Fraction 7.1, Prothrombin Time 17.4H, Prothromb Time International Ratio 1.39, Blood Gas Bicarbonate Standard 19.2, Venous Blood pH 7.285L, Venous Blood Partial Pressure CO2 43.1, Venous Blood Partial Pressure O2 77.4H, Venous Blood Total Carbon Dioxide 21.4L, Venous Blood HCO3 20.0L, Venous Blood Oxygen Saturation 92.8H, Venous Blood Base Excess -6.4L, Anion Gap 15, Glomerular Filtration Rate 7.8L, Lactic Acid Level 2.8*H, Calcium Level 8.9, Magnesium Level 2.5H, Total Creatine Kinase 122, Creatine Kinase MB 16.6H, Creatine Kinase MB Relative Index 13.61H, Troponin I 0.43H, Thyroid Stimulating Hormone (TSH) 12.500H, Free Thyroxine 0.74L 01/20/20 11:50: Bedside Glucose (Misc Panel) 104 01/20/20 14:37: Lactic Acid Followup at 4 Hours 3.5*H CBC/BMP Laboratory Tests 01/20/20 08:33 Microbiology Microbiology 01/20/20 Blood Culture, Received Pending 01/20/20 Blood Culture, Received Pending Assessment/Plan Mrs. Trivedi is a 49 year old female with ESRD on dialysis (,,SUN), diabetic nephropathy and neuropathy, and CAD s/p stents here with hypotension and frequent falls. She recently tried to cut back on her fluid intake from 32ounces to 16ounces to reduced the edema. This most likely contributed to her hypotension and falls throughout the week. This morning, she did not take her Midodrine which most likely caused today's episode of hypotension. We will restart her Midodrine today. I have relaxed her fluid intake to 1800mL for the time being as we are helping her blood pressure return. Imaging demonstrated loculated right pleural effusion with associated compressive atelectasis/consolidation. Will treat empirically with ceftriaxone and obtain a procalcitonin. Plan / VTE VTE Prophylaxis Ordered?: Yes Plan Plan 1. Intravascular volume depletion/Hypotension -She has peripheral edema, but no intravascularly depleted. -She has been fluid restricting herself to 16ounces (500mL) -No dialysis today, possibly tomorrow -Will relax fluid restriction for now to 1800mL and try to bring volume up -Continue midodrine 2. Possible right pneumonia -CT chest demonstrated right moderate loculated right pleural effusion with associated compressive atelectasis/consolidation -Sputum culture, blood culture, empiric ceftriaxone -Will obtain procalcitonin 3. ESRD on dialysis -Nephrology following, recommendations appreciated -Dialysis T,,SAT -Continue sevelamer 4. Hypothyroidism -Continue levothyroxine -Will check thyroid studies 5. Neuropathy -Bilateral feet burning and tenderness -Continue gabapentin 6. Diabetes mellitus type 2 -Insulin SS -Levemir 20units sub q 7. CAD s/p stent -Stable, no CP -Continue aspirin and statin -Hold Imdur 8. Pulmonary embolus -CTA on 12/31/2019 demonstrated PE int he subsegmental artery right lower lung posteriorly. -On Eliquis 2.5mg BID 9. DVT ppx -On Eliquis RON GLASS DO Jan 20, 2020 17:49
[2020-01-20 20:00] VITALS: BP 83/53
[2020-01-20 22:07] VITALS: BP 70/60
[2020-01-20] MEDS ORDERED: NS 250 ML IV SCH (22:30)
[2020-01-21] VITALS (41 sets, daily range): BP systolic 62–144; BP diastolic 40–67
[2020-01-21 05:38] LABS: HEMATOCRIT 40.6 % (36.0-47.0); HEMOGLOBIN 12.2 g/dl (12.0-15.5); MEAN CORPUSCULAR HEMOGLOBIN 32.9 pg (27.0-33.0); MEAN CORPUSCULAR VOLUME 109.4 fl (80.0-96.0); PLATELET COUNT, AUTOMATED 118 10^3/uL (150-450); RED BLOOD COUNT 3.71 10^6/uL (4.00-5.40); WHITE BLOOD COUNT 10.6 10^3/uL (4.0-10.0)
[2020-01-21] MEDS: LEVOTHYROXINE 125MCG TABLET (0.125MG) PO SCH (06:30)
[2020-01-21 06:32] LABS: ALBUMIN 2.9 GM/DL (3.2-5.2); BILIRUBIN,TOTAL 1.3 MG/DL (0.2-1.0); CALCIUM LEVEL 8.9 MG/DL (8.5-10.1); FREE T3 0.7 PG/ML (2.2-4.0); FREE T4 0.94 NG/DL (0.76-1.46); GLOMERULAR FILTRATION RATE 6.7 (>58); THYROID STIMULATING HORMONE 6.48 uIU/ML (0.358-3.740); TOTAL PROTEIN 6.6 GM/DL (6.4-8.2)
--- NOTE | 2020-01-21 08:24 | ECGEPIP ---
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
[2020-01-21] MEDS: MIDODRINE 5 MG TAB PO SCH ×3 (08:25→17:06)
[2020-01-21] MEDS: OMEPRAZOLE 20 MG CAP PO SCH ×2 (08:25→20:58)
[2020-01-21] MEDS: GABAPENTIN 100 MG CAP PO SCH ×2 (08:25→20:58)
[2020-01-21] MEDS: DOCUSATE SODIUM 100 MG CAP PO SCH (08:25)
[2020-01-21] MEDS: ATORVASTATIN 20 MG TAB PO SCH (08:25)
[2020-01-21] MEDS: ASPIRIN 81 MG CHEW TABLET PO SCH (08:26)
[2020-01-21] MEDS: (RENVELA) SEVELAMER **CARBONate** 800 MG TAB PO SCH ×3 (08:26→18:22)
[2020-01-21] MEDS: APIXABAN 2.5 MG TAB (ELIQUIS) PO SCH (08:28)
[2020-01-21] MEDS: LEVEMIR (INSULIN DETEMIR) 1 UNITS/0.01ML SC SCH (08:29)
[2020-01-21] MEDS: HumaLOG INSULIN (NovoLOG) PER UNIT SC SCH ×4 (08:29→20:59)
[2020-01-21] MEDS: NS 1,000 ML IV SCH ×2 (09:30→10:12)
[2020-01-21] MEDS: NOREPINEPHRINE BITARTRATE 8 MG in D5W 492 ML IV SCH ×2 (11:12→23:20)
[2020-01-21] MEDS: cefTRIAXone SOD 1 GM in D5W MINI-BAG PLUS 50 ML IV SCH (12:18)
--- NOTE | 2020-01-21 12:30 | REPVR ---
PROCEDURE INFORMATION: Exam: XR Chest, 1 View Exam date and time: 01/21/2020 12:13 PM Age: 49 years old Clinical indication: Shortness of breath; Additional info: S/P line placement TECHNIQUE: Imaging protocol: XR of the chest Views: 1 view. COMPARISON: CT Chest without contrast 01/20/2020 9:18 AM FINDINGS: Tubes, catheters and devices: Right subclavian catheter tip projects over the cavoatrial junction. Lungs: Mild consolidation in the lung bases. Pleural space: Small left pleural effusion. Moderate right pleural effusion. Heart/Mediastinum: Stable mild prominence of the cardiac silhouette. Bones/joints: Degenerative change of the spine. IMPRESSION: 1. Right subclavian catheter appears appropriately positioned. 2. Bilateral pleural effusions and mild consolidation in the lung bases Electronically signed by: Mary Lauren On 01/21/2020 12:29:53 PM
--- NOTE | 2020-01-21 20:30 | IPNPDOC ---
Subjective Date Seen The patient was seen on 01/21/20. Subjective Chief Complaint/HPI Mrs. Trivedi is a 49 year old female with ESRD on dialysis (T,, SAT), diabetic nephropathy and neuropathy, and CAD s/p stent here with hypotension and frequent falls. Yesterday, she initially responded to midodrine, but blood pressure started to fall. She was given bolus overnight. Blood pressure still did not improve. This morning, she was transferred to the ICU. Dr. Stuart was contacted to place central line for Levophed as peripherals were too small to place. Otherwise, when I saw her in PCU, she was complaining of loud ringing of the ears and she had trouble hearing and understanding words. Later in the afternoon, she tells me it has been going on for several months and the tinnitus would wax and wane. Last time she was here, ENT was consulted. They gave her steroids, but she tells me it did not help. ENT: Reports: Other Symptoms (Tinnitus) Other systems Unable to ask other questions due to her tinnitus and inability to understand me Objective Physical Examination General Exam: Positive: Alert, Cooperative, No Acute Distress Eye Exam: Positive: EOMI; Negative: Sclera icteric ENT Exam: Positive: Atraumatic Neck Exam: Positive: Supple Chest Exam: Positive: Diminished Heart Exam: Positive: Rate Normal, Regular Rhythm Abdomen Exam: Positive: BS Hypoactive, Soft Extremity Exam: Positive: Edema (bilateral pitting edema) Skin Exam: Positive: Other skin issue (Feet are erythematous, cold, and weeping) Neuro Exam: Positive: Other (Tinnitus, could not hear well over the ringing) Psych Exam: Positive: Mental status NL, Mood NL Assessment /Plan Assessment Mrs. Trivedi is a 49 year old female with ESRD on dialysis (T,,SAT), diabetic nephropathy and neuropathy, and CAD s/p stents here with hypotension and frequent falls. She recently tried to cut back on her fluid intake from 32ounces to 16ounces to reduced the edema. This most likely contributed to her hypotension and falls throughout the week. admission morning, she did not take her Midodrine which most likely caused today's episode of hypotension. Overnight and into the morning, she continued to have hypotension despite fluids. She was transferred to the ICU for central line placement by Dr. Stuart and started on Levophed in order to be dialyzed. She was also given albumin. We spoke about the risks and benefits of albumin including infection, HIV, Hep B, and Hep C. She was agreeable to albumin which was given during dialysis. Otherwise, pending thoracentesis. Eliquis held today Plan/VTE VTE Prophylaxis Ordered?: Yes Plan 1. Intravascular volume depletion/Hypotension -She has peripheral edema, but no intravascularly depleted. -She has been fluid restricting herself to 16ounces (500mL) -No dialysis today, possibly tomorrow -Will relax fluid restriction for now to 1800mL and try to bring volume up -Continue midodrine -Central line and levophed started to help with dialysis, received albumin during dialysis 2. Possible right pneumonia -CT chest demonstrated right moderate loculated right pleural effusion with associated compressive atelectasis/consolidation -Sputum culture, blood culture, empiric ceftriaxone -Will obtain procalcitonin -IR thoracentesis since the pleural effusion was drained last time. Holding Eliquis for procedure 3. ESRD on dialysis -Nephrology following, recommendations appreciated -Dialysis T,,SAT -Continue sevelamer 4. Hypothyroidism -Continue levothyroxine -Will check thyroid studies 5. Neuropathy -Bilateral feet burning and tenderness -Continue gabapentin 6. Diabetes mellitus type 2 -Insulin SS -Levemir 20units sub q 7. CAD s/p stent -Stable, no CP -Continue aspirin and statin -Hold Imdur 8. Pulmonary embolus -CTA on 12/31/2019 demonstrated PE int he subsegmental artery right lower lung posteriorly. -Eliquis on hold for anticipated thoracentesis 9. DVT ppx -Eliquis on hold for anticipated thoracentesis. SCD and TEDs VS, I&O, 24H, Fishbone Vital Signs/I&O Vital Signs Date Time Temp Pulse Resp B/P (MAP) Pulse Ox O2 Delivery O2 Flow Rate FiO2 01/21/20 11:12 97.9 86 16 87/51 99 Nasal Cannula 2.0 I&O- Last 24 Hours up to 6 AM 01/21/20 06:00 Intake Total 1090 ml Output Total 0 ml Balance 1090 ml Laboratory Data 24H LABS Laboratory Tests 2 01/20/20 14:37: Lactic Acid Followup at 4 Hours 3.5*H 01/20/20 17:45: Bedside Glucose (Misc Panel) 183H 01/20/20 20:14: Bedside Glucose (Misc Panel) 185H 01/21/20 05:06: Nucleated Red Blood Cells % (auto) 0.5H, Anion Gap 17H, Glomerular Filtration Rate 6.7L, Calcium Level 8.9, Total Bilirubin 1.3H, Aspartate Amino Transf ( AST/SGOT) 41H, Alanine Aminotransferase (ALT/SGPT) 33, Alkaline Phosphatase 171H, Total Protein 6.6, Albumin 2.9L, Albumin/Globulin Ratio 0.8L, Thyroid Stimulating Hormone (TSH) 6.480H, Free Thyroxine 0.94, Free Triiodothyronine 0.7L 01/21/20 12:08: Bedside Glucose (Misc Panel) 189H CBC/BMP Laboratory Tests 01/21/20 05:06 Microbiology Microbiology 01/20/20 Blood Culture - Preliminary, Resulted No growth after 24 hours . All specim... 01/20/20 Blood Culture - Preliminary, Resulted No growth after 24 hours . All specim... RON GLASS DO Jan 21, 2020 12:41
[2020-01-22] VITALS (60 sets, daily range): BP systolic 70–116; BP diastolic 37–70
[2020-01-22 04:57] LABS: HEMATOCRIT 43.2 % (36.0-47.0); HEMOGLOBIN 13.2 g/dl (12.0-15.5); MEAN CORPUSCULAR HEMOGLOBIN 32.8 pg (27.0-33.0); MEAN CORPUSCULAR HGB CONC 30.6 g/dl (32.0-36.5); MEAN CORPUSCULAR VOLUME 107.2 fl (80.0-96.0); PLATELET COUNT, AUTOMATED 115 10^3/uL (150-450); RED BLOOD COUNT 4.03 10^6/uL (4.00-5.40); WHITE BLOOD COUNT 12.1 10^3/uL (4.0-10.0)
[2020-01-22 05:18] LABS: BILIRUBIN,TOTAL 1.4 MG/DL (0.2-1.0); CALCIUM LEVEL 8.8 MG/DL (8.5-10.1); CREATININE FOR GFR 4.98 MG/DL (0.55-1.30); GLOMERULAR FILTRATION RATE 9.9 (>58); PHOSPHORUS LEVEL 4.3 MG/DL (2.5-4.9); POTASSIUM SERUM 4.2 MEQ/L (3.5-5.1); TOTAL PROTEIN 6.8 GM/DL (6.4-8.2)
[2020-01-22] MEDS: LEVOTHYROXINE 125MCG TABLET (0.125MG) PO SCH (06:28)
[2020-01-22] MEDS: GABAPENTIN 100 MG CAP PO SCH ×2 (09:06→21:52)
[2020-01-22] MEDS: ASPIRIN 81 MG CHEW TABLET PO SCH (09:06)
[2020-01-22] MEDS: (RENVELA) SEVELAMER **CARBONate** 800 MG TAB PO SCH ×3 (09:06→17:02)
[2020-01-22] MEDS: ATORVASTATIN 20 MG TAB PO SCH (09:06)
[2020-01-22] MEDS: MIDODRINE 5 MG TAB PO SCH ×3 (09:06→16:55)
[2020-01-22] MEDS: DOCUSATE SODIUM 100 MG CAP PO SCH (09:06)
--- NOTE | 2020-01-22 09:06 | CR ---
DATE OF CONSULTATION: 01/20/2020 REQUESTING PHYSICIAN: Dr Nichols. REASON FOR CONSULTATION: Management of end-stage renal disease on hemodialysis. HISTORY OF PRESENT ILLNESS: Subha is well known to me, she is a 49-year-old female with a past medical history of end-stage renal disease on hemodialysis via right thigh arterial venous graft, history of congestive heart failure with pleural and pericardial effusions, peripheral vascular disease, coronary artery disease; status post stents, type 2 diabetes mellitus, legal blindness, hypothyroidism and other comorbid conditions mentioned below. Patient was recently admitted to [facility] in December 2019 and had a pigtail catheter placed in the right pleura and she required serial hemodialysis for optimization of fluid status. She went to the outpatient hemodialysis unit today for her usual treatment, however, her blood pressure was found to be persistently systolic in the 60s. Hence, hemodialysis was not attempted and the patient was instead transferred to the Emergency Room due to persistent hypotension. Patient complains to me of weakness, dizziness, lightheadedness at home and has had falls at home as well. She complains of tenderness and erythema on the legs with some recent fluid blisters that have been weeping. She also complains of some dyspnea. In the Emergency Room, patient was found to have a systolic blood pressure in the 70s to 80s. She was afebrile. Laboratory studies revealed mild lactic acidosis and elevated TSH. Imaging of the lung was significant for a loculated right pleural effusion. PAST MEDICAL HISTORY: 1. End-stage renal disease on hemodialysis on Sunday, , Sunday schedule. 2. Chronic diastolic congestive heart failure. 3. Peripheral vascular disease. 4. Coronary artery disease; status post stents. 5. Secondary hyperparathyroidism of renal origin. 6. Type 2 diabetes mellitus. 7. Hypothyroidism. 8. History of pericardial and pleural effusions including recent right pleural effusion requiring pigtail catheter in December of 2019. 9. Legal blindness. 10. Anemia of chronic renal failure. PAST SURGICAL HISTORY: 1. Status post hysterectomy. 2. Status post right thigh AV graft. 3. History of PD catheter placement and removal. 4. History of pigtail catheter placement and removal. FAMILY HISTORY: Significant for chronic kidney disease in her family members. SOCIAL HISTORY: She lives at home. She denies smoking, illicit drug use or alcohol abuse. ALLERGIES: Penicillin. REVIEW OF SYSTEMS: Constitutional: Fatigue, weakness, lightheadedness. Denies fevers or chills. Eyes: Legally blind. ENT: Denies dysphagia or odynophagia. Cardiac: Reports leg edema and history of coronary artery disease. Respiratory: Reports dyspnea with exertion. Denies cough. GI: Denies nausea or vomiting. Genitourinary: Has very minimal urine output. Musculoskeletal: She reports blistering and redness of the bilateral lower extremities and tenderness to touch. Skin: She reports cellulitic changes of the lower extremities and fluid blisters. Endocrine: She reports type 2 diabetes mellitus and secondary hyperparathyroidism of renal origin. Hematologic: She had a recent PE and is on blood thinners. She has anemia of chronic renal failure. Psychiatric: She denies depression. She reports anxiety. Neurologic: She is legally blind. Otherwise, she denies any focal weakness. All other review of systems is negative. PHYSICAL EXAMINATION: VITALS: Temperature 98.2, pulse 77, respiratory rate 16, blood pressure 80/50, saturating 96% on room air. GENERAL: Patient is seen in the Emergency Room lying on the stretcher, head of the bed elevated. A middle-age female in no acute distress. Makes eye contact. Visual acuity is poor. Tongue is moist. Neck is supple. Jugular veins are not elevated. HEART: Sounds are regular, S1, S2. There is 1+ edema present in the extremities and in the dependent area. LUNGS: Show diminished breath sounds at both bases; more so on the right. There is no accessory muscle use or tachypnea. She is comfortable on room air. She is wearing a facial mask. ABDOMEN: Soft and nontender. EXTREMITIES: Significant for AV graft in the right thigh with dressings. SKIN: Shows erythema and some fluid blisters on both legs that comes to the proximal thighs, but does not extend up to the graft. NEUROLOGIC: She is oriented x3 at baseline mentation. LABORATORY DATA: Sodium 137, potassium 4.3, bicarbonate 24, BUN 65. Lactic acid 2.8. TSH 12.5. Hemoglobin 11.7, platelets 99,000. Blood cultures x2 sets are pending. IMAGING STUDIES: CT scan of the chest from 01/20/2020 shows moderate partially loculated right pleural effusion, which is increased from prior and has associated atelectasis and consolidation. There is also a persistent small pericardial effusion and a trace left pleural effusion. INPATIENT MEDICATIONS: 1. Ceftriaxone 1 gram I.V. daily. 2. Normal saline 80 cc an hour for 500 cc total. 3. Eliquis 2.5 mg p.o. b.i.d. 4. Aspirin 81 mg p.o. daily. 5. Atorvastatin 20 mg p.o. daily. 6. Docusate 100 mg p.o. daily. 7. Gabapentin 200 mg p.o. b.i.d. 8. Insulin. 9. Levothyroxine 125 mcg p.o. daily. 10. Midodrine 5 mg p.o. three times a day. 11. Prilosec 40 mg p.o. b.i.d. 12. MiraLax p.r.n. 13. Prednisone 10 mg p.o. daily. 14. Sevelamer 1600 mg p.o. with meals. PROBLEMS: 1. End-stage renal disease on hemodialysis: Patient was sent to the Emergency Room from her outpatient dialysis unit this morning because her blood pressures were too low for outpatient hemodialysis. In the Emergency Room, her systolic blood pressure was ranging from 70s to 80s. The patient is not uremic. Her electrolytes are acceptable. She is saturating comfortably on room air. I would hold off on dialyzing her today due to the significant hypotension. We will plan to dialyze her tomorrow morning after she has been stabilized from a hemodynamic point of view. 2. Moderate loculated right pleural effusion: Patient had a pigtail catheter placed for a pleural effusion in December of this year. I suggest she should be reevaluated by pulmonary or thoracic surgery in terms of the recurrent loculated right pleural effusion. Blood cultures have been sent and pending. Antimicrobials are as per primary team. I see she has been started on Ceftriaxone. 3. Chronic hypotension: Patient's blood pressures are more soft than her usual baseline. She is continued on Midodrine three times daily. I feel the infectious etiology underlying has caused her lower blood pressure. Okay to give 500 cc of normal saline. Primary team is managing infectious workup. 4. Lactic acidosis of 2.8: It is due to combination hypotension and hypervolemia and should improve with improvement in her blood pressures and hemodialysis. 5. Hypothyroidism: She is chronically noncompliant with medications and she has been restarted on Levothyroxine as per primary team. 6. History of recent DVT/PE: She continues on low dose Eliquis. Thank you for involving me in the care of Ms. Trivedi. I will be happy to follow her along with you. MTDD
[2020-01-22] MEDS: HumaLOG INSULIN (NovoLOG) PER UNIT SC SCH ×4 (09:07→21:00)
[2020-01-22] MEDS: LEVEMIR (INSULIN DETEMIR) 1 UNITS/0.01ML SC SCH (09:08)
--- NOTE | 2020-01-22 09:08 | RO ---
DATE OF OPERATION: January 21, 2020 PREOPERATIVE DIAGNOSIS: Hypotension. POSTOPERATIVE DIAGNOSIS: Hypotension. PROCEDURE: Right subclavian central venous pressure placement. SURGEON: Jimmie Stuart MD LITHOPONE MILL WORKER: Dr. Froy Mcdaniel ANESTHESIA: PROCEDURE NOTE: The patient was seen and the procedure was explained to the patient, as well as the possible complications pertaining thereto and informed consent was obtained. The patient was placed in supine position. The skin overlying the right subclavian vein was prepped with ChloraPrep and draped in sterile fashion. A 25-gauge needle was used to raise a skin wheal with 1% Lidocaine. Thereafter a 17-gauge introducer needle was placed in through the skin and in to the right subclavian vein. Free return of venous blood was obtained. A vascular tipped guidewire was advanced. A dilator was used to create a tract and the triple-lumen catheter was placed over the guidewire to a distance of 18 cm. The catheter was sewn in place and a sterile dressing applied. Postprocedural chest x-ray confirmed adequate placement. There were no complications. LESVIA
[2020-01-22] MEDS: OMEPRAZOLE 20 MG CAP PO SCH ×2 (09:10→21:53)
[2020-01-22] MEDS: NOREPINEPHRINE BITARTRATE 8 MG in D5W 492 ML IV SCH ×2 (12:33→23:20)
[2020-01-22] MEDS: cefTRIAXone SOD 1 GM in D5W MINI-BAG PLUS 50 ML IV SCH (12:34)
--- NOTE | 2020-01-22 16:16 | IPNPDOC ---
Subjective Date Seen The patient was seen on 01/22/20. Subjective Chief Complaint/HPI Mrs. Trivedi is a 49 year old female with ESRD on dialysis (T,TH, SAT), diabetic nephropathy and neuropathy, and CAD s/p stent here with hypotension and frequent falls. Yesterday, she required Levophed for dialysis. Still on Levophed this morning. Otherwise, she tells me the tinnitus is still present, but she can hear me better. Denies fever, chest pain, dyspnea, or abdominal pain Constitutional: Denies: Fever ENT: Reports: Other Symptoms (Tinnitus) Pulmonary: Denies: Dyspnea Cardiovascular: Denies: Chest Pain Gastrointestinal: Denies: Abdominal Pain Objective Physical Examination General Exam: Positive: Alert, Cooperative, No Acute Distress Eye Exam: Positive: EOMI; Negative: Sclera icteric ENT Exam: Positive: Atraumatic Neck Exam: Positive: Supple Chest Exam: Positive: Diminished Heart Exam: Positive: Rate Normal, Regular Rhythm Abdomen Exam: Positive: BS Hypoactive, Soft Extremity Exam: Positive: Edema (bilateral pitting edema) Skin Exam: Positive: Other skin issue (Feet are erythematous, cold, and weeping) Neuro Exam: Positive: Other (Tinnitus, could not hear well over the ringing) Psych Exam: Positive: Mental status NL, Mood NL Assessment /Plan Assessment Mrs. Trivedi is a 49 year old female with ESRD on dialysis (T,TH,SAT), diabetic nephropathy and neuropathy, and CAD s/p stents here with hypotension and frequent falls. She recently tried to cut back on her fluid intake from 32ounces to 16ounces to reduced the edema. This most likely contributed to her hypotension and falls throughout the week. Otherwise, possible respiratory infection. Procalcitonin elevated at 0.54. Continue with empiric antibiotics. Pending thoracentesis tomorrow. Otherwise, she continues to require Levophed. TSH elevated at 6. Will increase levothyroxine. Will need follow up TSH in 4 weeks Plan/VTE VTE Prophylaxis Ordered?: Yes Plan 1. Intravascular volume depletion/Hypotension -She has peripheral edema, but intravascularly depleted. -She has been fluid restricting herself to 16ounces (500mL) -Will relax fluid restriction for now to 1800mL and try to bring volume up -Continue midodrine -Possible infection, Procalcitonin elevated at 0.54. Continue empiric a ntibiotics -Central line placed 01/21/2020. Continues to require Levophed 2. Possible right pneumonia -CT chest demonstrated right moderate loculated right pleural effusion with associated compressive atelectasis/consolidation -Procalcitonin elevated at 0.54 (but decreased from 1.25 in 01/09/2020) -Continue empiric ceftriaxone. -Plan for IR thoracentesis tomorrow. 3. ESRD on dialysis -Nephrology following, recommendations appreciated -Dialysis T,TH,SAT -Continue sevelamer 4. Hypothyroidism -TSH at 6.48, Free T4 0.94, Free T3 0.7 -Previous TSH was 12 -Will increase levothyroxine to 150mcg. She will need a repeat TSH in 4 weeks 5. Neuropathy -Bilateral feet burning and tenderness -Continue gabapentin 6. Diabetes mellitus type 2 -Insulin SS -Levemir 20units sub q 7. CAD s/p stent -Stable, no CP -Continue aspirin and statin -Hold Imdur 8. Pulmonary embolus -CTA on 12/31/2019 demonstrated PE int he subsegmental artery right lower lung posteriorly. -Eliquis on hold for anticipated thoracentesis 9. DVT ppx -Eliquis on hold for anticipated thoracentesis. SCD and TEDs Dispo: Thoracentesis tomorrow. Continue titrating Levophed. Continue IV antibiotics VS, I&O, 24H, Fishbone Vital Signs/I&O Vital Signs Date Time Temp Pulse Resp B/P (MAP) Pulse Ox O2 Delivery O2 Flow Rate FiO2 01/22/20 15:45 80 98/55 (69) 01/22/20 13:45 100 Room Air 01/22/20 12:33 15 01/22/20 12:00 98.8 01/21/20 17:45 2.0 I&O- Last 24 Hours up to 6 AM 01/22/20 06:00 Intake Total 768.0 ml Output Total 1500 ml Balance -732.0 ml Laboratory Data 24H LABS Laboratory Tests 2 01/21/20 16:47: Bedside Glucose (Misc Panel) 115H 01/21/20 20:57: Bedside Glucose (Misc Panel) 138H 01/22/20 04:30: Nucleated Red Blood Cells % (auto) 0.3H, Anion Gap 12, Glomerular Filtration Rate 9.9L, Calcium Level 8.8, Phosphorus Level 4.3, Total Bilirubin 1.4H, Aspartate Amino Transf (AST/SGOT) 97H, Alanine Aminotransferase (ALT/SGPT) 52, Alkaline Phosphatase 172H, Total Protein 6.8, Albumin 3.0L, Albumin/Globulin Ratio 0.8L 01/22/20 07:45: Bedside Glucose (Misc Panel) 118H 01/22/20 12:15: Bedside Glucose (Misc Panel) 135H CBC/BMP Laboratory Tests 01/22/20 04:30 Microbiology Microbiology 01/20/20 Blood Culture - Preliminary, Resulted No Growth after 48 hours. All Specime... 01/20/20 Blood Culture - Preliminary, Resulted No Growth after 48 hours. All Specime... RON GLASS DO Jan 22, 2020 16:16
[2020-01-23] VITALS (80 sets, daily range): BP systolic 75–120; BP diastolic 38–70
[2020-01-23 05:05] LABS: HEMATOCRIT 38.7 % (36.0-47.0); HEMOGLOBIN 11.5 g/dl (12.0-15.5); MEAN CORPUSCULAR HEMOGLOBIN 32.1 pg (27.0-33.0); MEAN CORPUSCULAR HGB CONC 29.7 g/dl (32.0-36.5); MEAN CORPUSCULAR VOLUME 108.1 fl (80.0-96.0); RED BLOOD COUNT 3.58 10^6/uL (4.00-5.40); WHITE BLOOD COUNT 8.6 10^3/uL (4.0-10.0)
[2020-01-23 05:14] LABS: INR 1.26; PROTHROMBIN TIME 16.1 SECONDS (12.5-14.3)
[2020-01-23 05:15] LABS: PARTIAL THROMBOPLASTIN TIME 29.2 SECONDS (24.2-38.5)
[2020-01-23 05:26] LABS: PLATELET COUNT, AUTOMATED 87 10^3/uL (150-450)
[2020-01-23 05:28] LABS: ALBUMIN 2.7 GM/DL (3.2-5.2); CALCIUM LEVEL 8.6 MG/DL (8.5-10.1); CREATININE FOR GFR 6.06 MG/DL (0.55-1.30); GLOMERULAR FILTRATION RATE 7.9 (>58); POTASSIUM SERUM 4.1 MEQ/L (3.5-5.1); TOTAL PROTEIN 6.2 GM/DL (6.4-8.2)
[2020-01-23] MEDS: LEVOTHYROXINE 150MCG TABLET (0.15MG) PO SCH (05:56)
[2020-01-23] MEDS: GABAPENTIN 100 MG CAP PO SCH ×2 (08:13→20:34)
[2020-01-23] MEDS: (RENVELA) SEVELAMER **CARBONate** 800 MG TAB PO SCH ×3 (08:13→17:50)
[2020-01-23] MEDS: MIDODRINE 5 MG TAB PO SCH ×3 (08:13→17:50)
[2020-01-23] MEDS: ATORVASTATIN 20 MG TAB PO SCH (08:14)
[2020-01-23] MEDS: DOCUSATE SODIUM 100 MG CAP PO SCH (08:14)
[2020-01-23] MEDS: OMEPRAZOLE 20 MG CAP PO SCH ×2 (08:14→20:34)
[2020-01-23] MEDS: ASPIRIN 81 MG CHEW TABLET PO SCH (08:14)
[2020-01-23] MEDS: LEVEMIR (INSULIN DETEMIR) 1 UNITS/0.01ML SC SCH (08:15)
[2020-01-23] MEDS: HumaLOG INSULIN (NovoLOG) PER UNIT SC SCH ×4 (08:16→20:40)
--- NOTE | 2020-01-23 09:23 | IPN ---
DATE: 01/21/2020 SUBJECTIVE: Subha is seen and examined this morning at her bedside. Overnight, she received gentle IV hydration with Normal Saline and her Midodrine dose was also increased to 10 mg three times a day. Her Eliquis was also held in view of planned thoracentesis and drainage of loculated pleural effusion. She was planned for hemodialysis treatment this morning, unfortunately, her systolic blood pressure this morning was again in the 60s to 70s and I felt that her hypotension was too severe to dialyze her on the hemodialysis unit. Hence, I discussed with Hospitalist, Dr. Nichols, for transferring the patient to the Intensive Care Unit and starting Levophed infusion for dialysis with pressor support. Subha is subsequently seen in the Intensive Care Unit this morning and again in the afternoon receiving dialysis. She complains of chronic tinnitus and bells ringing in her ear and generalized fatigue and weakness. She denies shortness of breath while lying in bed but she gets dizzy and lightheaded with exertion. PHYSICAL EXAMINATION: VITAL SIGNS: Temperature 97.3, pulse 80, respiratory rate 19, blood pressure 72/52, saturating 97% on room air. GENERAL: The patient is seen lying in bed flat, awake, alert and oriented, in no apparent distress. Hard of hearing. Extraocular muscles are intact. HEENT: Tongue is moist. HEART: Heart sounds are regular, S1 and S2. LUNGS: Diminished but more so on the right. There is no tachypnea or accessory muscle use. There is 1 to 2+ pitting edema that extends up to the mid thigh. ABDOMEN: Soft and nontender to palpation. EXTREMITIES: AV graft on the right thigh with somewhat faint thrill. There is 2+ leg edema and the skin on the lower extremities is erythematous, tender to touch and with scattered fluid blister. NEUROLOGIC: She is oriented x3, at baseline mentation. LABS: Sodium 132, potassium 6.0, bicarbonate 19, BUN 76, lactic acid 3.5. Hemoglobin 12.2. Blood cultures: No growth for 24 hours x2 sets. INPATIENT MEDICATIONS: Her Midodrine was increased to 10 mg p.o. three times daily. She was subsequently started on Levophed infusion. Her Eliquis is on hold for thoracentesis. The remainder of medications are unchanged from prior. PROBLEMS: 1. Endstage renal disease on hemodialysis. Patient missed her regular day yesterday because of worsening hypotension. Despite starting antibiotics and receiving a liter of IV fluid, her blood pressures remain low this morning with systolic in the 60s to 70s. She is on Midodrine 10 mg three times a day. She is being started on Levophed infusion in the ICU. Would plan for dialysis with pressor support. 2. Hyperkalemia due to chronic renal failure and missed hemodialysis treatment on Sunday. She is going to be dialyzed today with Levophed pressor support at the bedside and the Intensive Care Unit with a 1.0 mEq potassium bath. 3. Chronic hypotension with recent worsening hemodynamics. Patient is on Midodrine at home, however her systolic is usually in the 80s to 90s. Presently, her systolic is much lower in the 60s to 70s and an infectious workup is being undertaken by the primary team. She does have a recurrent loculated right pleural effusion as a possible source and she is pending thoracentesis. I suggest to add Vancomycin to the regimen as well. Presently, she is only receiving Ceftriaxone. 4. Loculated moderate right pleural effusion, recurrent, status post thoracentesis in December of this year and plan for another thoracentesis after she has been off of Eliquis for two days. Blood pressures are not improving despite Ceftriaxone and gentle IV fluid. Consider broadening her antimicrobials. Blood cultures thus far have been negative. Her white count is mildly elevated although she remains afebrile. Critical care time spent 40 minutes. LESVIA
--- NOTE | 2020-01-23 09:26 | IPN ---
DATE: 01/22/2020 SUBJECTIVE: Subha is seen and examined this morning at the bedside in the intensive care unit. Yesterday, she was dialyzed on Levophed pressor support and 1500 mL was removed. She has not been up and out of bed. She is on 2 mcg of Levophed. She is pending thoracentesis tomorrow. She denies shortness of breath at rest. She complains of tenderness in the legs. Temperature 98.6, pulse 75, respiratory rate 14, blood pressure 88/53, saturating 97% on room air. Review of intake and output yesterday shows net negative 450 mL. Weight in the bed scale today is 74.4 kg. General: Patient is seen laying in bed, head of the bed elevated 30 degrees, awake, alert, oriented, in no distress, having tinnitus in the ears. Extraocular muscles are intact. Neck veins are elevated. Heart sounds S1, S2, regular with 1+ pitting edema in the legs. Lungs are diminished on the right, otherwise symmetric, comfortable on room air. Abdomen is soft and nontender. There are old healed surgical scars. Extremities show 1+ to 2+ leg edema with erythema of the skin and an arteriovenous (AV) graft on the right thigh. Neurologic: Having tinnitus and hard of hearing over the ringing. Otherwise, oriented times three at baseline mentation. LABORATORY DATA: Sodium 134, potassium 4.2, phosphorous 4.3, hemoglobin 13.2, white count 12.1. Blood cultures no growth for 48 hours. INPATIENT MEDICATIONS: She continues on Levophed infusion and IV ceftriaxone. Remainder of medications are unchanged from prior. PROBLEMS: 1. End-stage renal disease on hemodialysis on Sunday, , Sunday schedule. She is off of her usual dialysis schedule. She was dialyzed yesterday with Levophed pressor support. We were able to remove 1.5 liters. Next dialysis treatment will be on Sunday and she is receiving midodrine 10 mg three times a day. Hopefully soon we will be able to do her dialysis treatment without the pressor support. She remains with volume overload and peripheral edema but I am reluctant to aggressively remove fluid in view of her hemodynamics. 2. Hyperkalemia secondary to missed dialysis treatment. It has improved with her treatment yesterday. 3. Chronic hypotension which has recently been worsening. This is the second hospitalization that the patient has required Levophed pressor support at a low rate for hypotension and hypotension of hemodialysis. She is on midodrine 10 mg three times a day. We used albumin with her treatment yesterday as well. 4. Loculated right pleural effusion. Her Eliquis is on hold and she is pending thoracentesis tomorrow. Her blood cultures remain negative. Hopefully, her blood pressure may improve after drainage of the loculated effusion. She is on IV ceftriaxone as per primary team. White count has slowly risen. 5. Secondary hyperparathyroidism of renal origin. Phosphorous level is acceptable and she continues on Renvela. MTDD
[2020-01-23] MEDS: cefTRIAXone SOD 1 GM in D5W MINI-BAG PLUS 50 ML IV SCH (11:58)
[2020-01-23] MEDS ORDERED: SODIUM BICARBONATE 8.4% INJ 50MEQ 50 ML VIAL As Ordered ONE (12:31)
[2020-01-23 13:52] LABS: PH BODY FLUID 7.579 UNITS (NOT ESTABLISHED); SOURCE, BODY FLUID pH PLEURAL
[2020-01-23 14:25] LABS: LDH, BODY FLUID 103 U/L (NOT ESTABLISHED); SOURCE, BODY FLUID ALBUMIN PLEURAL; SOURCE, BODY FLUID LDH PLEURAL; SOURCE, BODY FLUID TOT PROTEIN PLEURAL; TOTAL PROTEIN, BODY FLUID 1.8 G/DL (NOT ESTABLISHED)
--- NOTE | 2020-01-23 14:42 | IPNPDOC ---
Subjective Date Seen The patient was seen on 01/23/20. Subjective Chief Complaint/HPI Mrs. Trivedi is a 49 year old female with ESRD on dialysis (T,TH, SAT), diabetic nephropathy and neuropathy, and CAD s/p stent here with hypotension and frequent falls. Today, she tells me that the tinnitus has improved. Denies fever, chest pain, dyspnea, or abdominal pain. This afternoon, she went for thoracentesis, pending results. Constitutional: Denies: Fever ENT: Reports: Other Symptoms (tinnitus) Pulmonary: Denies: Dyspnea Cardiovascular: Denies: Chest Pain Gastrointestinal: Denies: Abdominal Pain Genitourinary: Denies: Dysuria Objective Physical Examination General Exam: Positive: Alert, Cooperative, No Acute Distress Eye Exam: Positive: EOMI; Negative: Sclera icteric ENT Exam: Positive: Atraumatic Neck Exam: Positive: Supple Chest Exam: Positive: Diminished Heart Exam: Positive: Rate Normal, Regular Rhythm Abdomen Exam: Positive: BS Hypoactive, Soft Extremity Exam: Positive: Edema (bilateral pitting edema) Skin Exam: Positive: Other skin issue (Feet are erythematous, cold, and weeping) Neuro Exam: Positive: Other (Tinnitus, could not hear well over the ringing) Psych Exam: Positive: Mental status NL, Mood NL Assessment /Plan Assessment Mrs. Trivedi is a 49 year old female with ESRD on dialysis (T,TH,SAT), diabetic nephropathy and neuropathy, and CAD s/p stents here with hypotension and frequent falls. She recently tried to cut back on her fluid intake from 32ounces to 16ounces to reduced the edema. This most likely contributed to her hypotension and falls throughout the week. Otherwise, possible respiratory infection. Procalcitonin elevated at 0.54. Continue with empiric antibiotics. Otherwise, she continues to require Levophed. TSH elevated at 6, increased levothyroxine from 125mcg to 150mcg on 01/23/2020. Will need follow up TSH in 4 weeks. Today, we have a planned thoracentesis. Still on Levophed. Plan/VTE VTE Prophylaxis Ordered?: Yes Plan 1. Intravascular volume depletion/Hypotension -She has peripheral edema, but intravascularly depleted. -She has been fluid restricting herself to 16ounces (500mL) -Will relax fluid restriction for now to 1800mL and try to bring volume up -Continue midodrine -Possible infection, Procalcitonin elevated at 0.54. Continue empiric antibiotics -Central line placed 01/21/2020. Continues to require Levophed 2. Possible right pneumonia -CT chest demonstrated right moderate loculated right pleural effusion with associated compressive atelectasis/consolidation -Procalcitonin elevated at 0.54 (but decreased from 1.25 in 01/09/2020) -Continue empiric ceftriaxone. -IR thoracentesis today, pending results 3. ESRD on dialysis -Nephrology following, recommendations appreciated -Dialysis T,TH,SAT -Continue sevelamer 4. Hypothyroidism -TSH at 6.48, Free T4 0.94, Free T3 0.7 -Previous TSH was 12 -Increased on 01/23/2020 from 125mcg to 150mcg. She will need a repeat TSH in 4 weeks 5. Neuropathy -Bilateral feet burning and tenderness -Continue gabapentin 6. Diabetes mellitus type 2 -Insulin SS -Levemir 20units sub q 7. CAD s/p stent -Stable, no CP -Continue aspirin and statin -Hold Imdur 8. Pulmonary embolus -CTA on 12/31/2019 demonstrated PE int he subsegmental artery right lower lung posteriorly. -Eliquis on hold for anticipated thoracentesis 9. DVT ppx -Eliquis on hold for anticipated thoracentesis. SCD and TEDs Dispo: Thoracentesis today. Continue titrating Levophed. Continue IV antibiotics VS, I&O, 24H, Fishbone Vital Signs/I&O Vital Signs Date Time Temp Pulse Resp B/P (MAP) Pulse Ox O2 Delivery O2 Flow Rate FiO2 01/23/20 14:00 88 103/58 (73) 97 Room Air 01/23/20 13:25 18 01/23/20 12:00 98.6 01/23/20 07:00 1.0 I&O- Last 24 Hours up to 6 AM 01/23/20 06:00 Intake Total 779.30 ml Output Total 0 ml Balance 779.30 ml Laboratory Data 24H LABS Laboratory Tests 2 01/22/20 16:58: Bedside Glucose (Misc Panel) 126H 01/22/20 20:04: Bedside Glucose (Misc Panel) 124H 01/23/20 04:40: Nucleated Red Blood Cells % (auto) 0.3H, Immature Platelet Fraction 3.8, Prothrombin Time 16.1H, Prothromb Time International Ratio 1.26, Activated Partial Thromboplast Time 29.2, Anion Gap 12, Glomerular Filtration Rate 7.9L, Calcium Level 8.6, Total Bilirubin 1.0, Aspartate Amino Transf (AST/SGOT) 63H, Alanine Aminotransferase (ALT/SGPT) 41, Alkaline Phosphatase 162H, Lactate Dehydrogenase 359H, Total Protein 6.2L, Albumin 2.7L, Albumin/Globulin Ratio 0.8L 01/23/20 07:45: Bedside Glucose (Misc Panel) 104 01/23/20 11:40: Bedside Glucose (Misc Panel) 128H 01/23/20 13:20: Body Fluid pH 7.579, Body Fluid pH Source PLEURAL, Body Fluid Protein Source PLEURAL, Body Fluid Total Protein 1.8, Body Fluid Albumin Source PLEURAL, Body Fluid Albumin 0.8, Body Fluid LDH Source PLEURAL, Body Fluid Lactate Dehydrogenase 103 CBC/BMP Laboratory Tests 01/23/20 04:40 Microbiology Microbiology 01/23/20 Fungal Smear, Received Pending 01/23/20 Fungal Culture, Received Pending 01/23/20 Gram Stain, Received Pending 01/23/20 Anaerobic Culture, Received Pending 01/23/20 Body Fluid Culture, Received Pending 01/20/20 Blood Culture - Preliminary, Resulted No Growth after 72 hours. All specime... 01/20/20 Blood Culture - Preliminary, Resulted No Growth after 72 hours. All specime... RON GLASS DO Jan 23, 2020 14:42
[2020-01-23 15:41] LABS: APPEARANCE, BODY FLUID HAZY (CLEAR); PLEURAL FL COLOR YELLOW (COLORLESS); SOURCE, BODY FLUID PLEURAL
[2020-01-23] MEDS: NOREPINEPHRINE BITARTRATE 8 MG in D5W 492 ML IV SCH (17:54)
[2020-01-23] MEDS ORDERED: ACETAMINOPHEN TAB 650MG DOSE (2X325MG) PO PRN (18:45)
[2020-01-23] MEDS ORDERED: LIDOCAINE 5% (LIDODERM) PATCH TD SCH (18:45)
[2020-01-23] MEDS: **NOTE PATIENT COMMENT** MISC XX SCH (21:00)
[2020-01-24] VITALS (41 sets, daily range): BP systolic 63–120; BP diastolic 41–69
[2020-01-24] MEDS ORDERED: ONDANSETRON 4MG/2ML VIAL As Ordered ONE (03:42)
[2020-01-24] MEDS: ONDANSETRON 4MG/2ML VIAL IV PRN (04:03)
[2020-01-24] MEDS: LEVOTHYROXINE 150MCG TABLET (0.15MG) PO SCH (05:33)
[2020-01-24 05:53] LABS: HEMATOCRIT 38.7 % (36.0-47.0); HEMOGLOBIN 11.5 g/dl (12.0-15.5); MEAN CORPUSCULAR HEMOGLOBIN 32.3 pg (27.0-33.0); MEAN CORPUSCULAR HGB CONC 29.7 g/dl (32.0-36.5); MEAN CORPUSCULAR VOLUME 108.7 fl (80.0-96.0); RED BLOOD COUNT 3.56 10^6/uL (4.00-5.40); WHITE BLOOD COUNT 7.3 10^3/uL (4.0-10.0)
[2020-01-24 05:58] LABS: PLATELET COUNT, AUTOMATED 93 10^3/uL (150-450)
[2020-01-24 06:26] LABS: CALCIUM LEVEL 8.7 MG/DL (8.5-10.1); CREATININE FOR GFR 4.51 MG/DL (0.55-1.30); GLOMERULAR FILTRATION RATE 11.1 (>58); PHOSPHORUS LEVEL 3.6 MG/DL (2.5-4.9); POTASSIUM SERUM 4.1 MEQ/L (3.5-5.1)
[2020-01-24] MEDS: DOCUSATE SODIUM 100 MG CAP PO SCH (07:30)
[2020-01-24] MEDS: (RENVELA) SEVELAMER **CARBONate** 800 MG TAB PO SCH ×3 (07:30→17:56)
[2020-01-24] MEDS: ASPIRIN 81 MG CHEW TABLET PO SCH (07:30)
[2020-01-24] MEDS: OMEPRAZOLE 20 MG CAP PO SCH ×2 (07:30→20:06)
[2020-01-24] MEDS: GABAPENTIN 100 MG CAP PO SCH ×2 (07:30→20:06)
[2020-01-24] MEDS: MIDODRINE 5 MG TAB PO SCH ×3 (07:30→17:56)
[2020-01-24] MEDS: HumaLOG INSULIN (NovoLOG) PER UNIT SC SCH ×4 (07:31→20:06)
[2020-01-24] MEDS: ATORVASTATIN 20 MG TAB PO SCH (07:31)
[2020-01-24] MEDS: LEVEMIR (INSULIN DETEMIR) 1 UNITS/0.01ML SC SCH (07:32)
[2020-01-24] MEDS: NOREPINEPHRINE BITARTRATE 8 MG in D5W 492 ML IV SCH ×3 (08:28→23:44)
[2020-01-24] MEDS ORDERED: ACETAMINOPHEN 500 MG TAB PO PRN (12:00)
--- NOTE | 2020-01-24 12:10 | IPNPDOC ---
Subjective Date Seen The patient was seen on 01/24/20. Subjective Chief Complaint/HPI Mrs. Trivedi is a 49 year old female with ESRD on dialysis (T,TH, SAT), diabetic nephropathy and neuropathy, and CAD s/p stent here with hypotension and frequent falls. Tinnitus present, but better. Still has feet pain despite lidocaine patch. Denies fever, chest pain, or abdominal pain. Constitutional: Denies: Fever ENT: Reports: Other Symptoms (tinnitus) Cardiovascular: Denies: Chest Pain Gastrointestinal: Denies: Abdominal Pain Musculoskeletal: Denies: Foot Pain Objective Physical Examination General Exam: Positive: Alert, Cooperative, No Acute Distress Eye Exam: Positive: EOMI; Negative: Sclera icteric ENT Exam: Positive: Atraumatic Neck Exam: Positive: Supple Chest Exam: Positive: Diminished Heart Exam: Positive: Rate Normal, Regular Rhythm Abdomen Exam: Positive: BS Hypoactive, Soft Extremity Exam: Positive: Edema (bilateral pitting edema) Skin Exam: Positive: Other skin issue (Feet are erythematous, cold, and weeping) Neuro Exam: Positive: Other (Tinnitus) Psych Exam: Positive: Mental status NL, Mood NL Assessment /Plan Assessment Mrs. Trivedi is a 49 year old female with ESRD on dialysis (T,TH,SAT), diabetic nephropathy and neuropathy, and CAD s/p stents here with hypotension and frequent falls. She recently tried to cut back on her fluid intake from 32ounces to 16ounces to reduced the edema. This most likely contributed to her hypotension and falls throughout the week. Otherwise, possible respiratory infection. Procalcitonin elevated at 0.54. Continue with empiric antibiotics. Otherwise, she continues to require Levophed. TSH elevated at 6, increased levothyroxine from 125mcg to 150mcg on 01/23/2020. Will need follow up TSH in 4 weeks. On 01/23/2020, she had thoracentesis. Removed 1150mL, demonstrated transudative fluid. Nephrology recommended checking cortisol to look for adrenal insuff iciency as patient is still requiring Levophed. Plan/VTE VTE Prophylaxis Ordered?: Yes Plan 1. Intravascular volume depletion/Hypotension -She has peripheral edema, but intravascularly depleted. -She has been fluid restricting herself to 16ounces (500mL) -Will relax fluid restriction for now to 1800mL and try to bring volume up -Continue midodrine -Central line placed 01/21/2020. Continues to require Levophed -Checking cortisol today for possible adrenal insufficiency 2. Possible right pneumonia -CT chest demonstrated right moderate loculated right pleural effusion with associated compressive atelectasis/consolidation -Procalcitonin elevated at 0.54 (but decreased from 1.25 in 01/09/2020) -Continue empiric ceftriaxone. Today is last day of antibiotics -IR thoracentesis yesterday, removed 1150mL transudative fluid - Total Serum Protein 6.2. Pleural protein 1.8 - Serum LDH 359. Pleural LDH 103 - Serum albumin 3. Pleural albumin 0.8 3. ESRD on dialysis -Nephrology following, recommendations appreciated -Dialysis T,,SAT -Continue sevelamer -No dialysis today (SAT) since had dialysis Sunday 4. Hypothyroidism -TSH at 6.48, Free T4 0.94, Free T3 0.7 -Previous TSH was 12 -Increased on 01/23/2020 from 125mcg to 150mcg. She will need a repeat TSH in 4 weeks 5. Neuropathy -Bilateral feet burning and tenderness -Continue gabapentin -Continue lidocaine patch and PRN Tylenol 6. Diabetes mellitus type 2 -Insulin SS -Levemir 20units sub q 7. CAD s/p stent -Stable, no CP -Continue aspirin and statin -Hold Imdur 8. Pulmonary embolus -CTA on 12/31/2019 demonstrated PE int he subsegmental artery right lower lung posteriorly. -Eliquis on hold for anticipated thoracentesis 9. DVT ppx -Eliquis on hold for anticipated thoracentesis. SCD and TEDs Dispo: VS, I&O, 24H, Fishbone Vital Signs/I&O Vital Signs Date Time Temp Pulse Resp B/P (MAP) Pulse Ox O2 Delivery O2 Flow Rate FiO2 01/24/20 08:28 98.5 84 12 99/57 95 Nasal Cannula 1.0 98 I&O- Last 24 Hours up to 6 AM 01/24/20 06:00 Intake Total 1137.6 ml Output Total 500 ml Balance 637.6 ml Laboratory Data 24H LABS Laboratory Tests 2 01/23/20 13:20: Body Fluid pH 7.579, Body Fluid pH Source PLEURAL, Body Fluid WBC (Auto) 69H, Body Fluid RBC (Auto) < 2, Body Fluid Mononuclear Cells % Auto 84.0H, Fluid Polymorphonuclear Cell % Auto 16.0H, Body Fluid Protein Source PLEURAL, Body Fluid Total Protein 1.8, Body Fluid Albumin Source PLEURAL, Body Fluid Albumin 0.8, Body Fluid LDH Source PLEURAL, Body Fluid Lactate Dehydrogenase 103, Pleural Fluid Source PLEURAL, Pleural Fluid Color YELLOW, Pleural Fluid Appearance HAZY 01/23/20 17:38: Bedside Glucose (Misc Panel) 86 01/23/20 20:39: Bedside Glucose (Misc Panel) 104 01/24/20 03:36: Bedside Glucose (Misc Panel) 137H 01/24/20 05:36: Nucleated Red Blood Cells % (auto) 0.6H, Immature Platelet Fraction 4.6, Anion Gap 12, Glomerular Filtration Rate 11.1L, Calcium Level 8.7, Phosphorus Level 3.6, Albumin 3.0L CBC/BMP Laboratory Tests 01/24/20 05:36 Microbiology Microbiology 01/23/20 Fungal Smear, Received Pending 01/23/20 Fungal Culture, Received Pending 01/23/20 Gram Stain - Final, Resulted 01/23/20 Anaerobic Culture, Resulted Pending 01/23/20 Body Fluid Culture, Received Pending 01/20/20 Blood Culture - Preliminary, Resulted No Growth after 72 hours. All specime... 01/20/20 Blood Culture - Preliminary, Resulted No Growth after 72 hours. All specime... RON GLASS DO Jan 24, 2020 12:09
[2020-01-24] MEDS: cefTRIAXone SOD 1 GM in D5W MINI-BAG PLUS 50 ML IV SCH (13:19)
[2020-01-24] MEDS: HYDROCORTISONE 100 MG/2 ML VIAL (J1720 PER 1) IV SCH (20:06)
[2020-01-24] MEDS: **NOTE PATIENT COMMENT** MISC XX SCH (20:34)
[2020-01-25] VITALS (40 sets, daily range): BP systolic 75–113; BP diastolic 42–72
[2020-01-25 05:17] LABS: HEMATOCRIT 39.7 % (36.0-47.0); MEAN CORPUSCULAR HEMOGLOBIN 32.8 pg (27.0-33.0); MEAN CORPUSCULAR HGB CONC 30.2 g/dl (32.0-36.5); MEAN CORPUSCULAR VOLUME 108.5 fl (80.0-96.0); RED BLOOD COUNT 3.66 10^6/uL (4.00-5.40); WHITE BLOOD COUNT 7.1 10^3/uL (4.0-10.0)
[2020-01-25 05:22] LABS: PLATELET COUNT, AUTOMATED 93 10^3/uL (150-450)
[2020-01-25 05:29] LABS: C REACTIVE PROTEIN QUANTITATIV 5.16 MG/DL (0.00-0.30); CALCIUM LEVEL 8.7 MG/DL (8.5-10.1); CREATININE FOR GFR 5.5 MG/DL (0.55-1.30); GLOMERULAR FILTRATION RATE 8.8 (>58); POTASSIUM SERUM 4.7 MEQ/L (3.5-5.1)
[2020-01-25] MEDS: LEVOTHYROXINE 150MCG TABLET (0.15MG) PO SCH (06:50)
[2020-01-25] MEDS: HYDROCORTISONE 100 MG/2 ML VIAL (J1720 PER 1) IV SCH ×2 (07:39→20:55)
[2020-01-25] MEDS: LEVEMIR (INSULIN DETEMIR) 1 UNITS/0.01ML SC SCH (07:40)
[2020-01-25] MEDS: HumaLOG INSULIN (NovoLOG) PER UNIT SC SCH ×4 (07:40→20:16)
[2020-01-25] MEDS: (RENVELA) SEVELAMER **CARBONate** 800 MG TAB PO SCH ×3 (07:41→17:26)
[2020-01-25] MEDS: MIDODRINE 5 MG TAB PO SCH ×3 (07:41→17:27)
[2020-01-25] MEDS: DOCUSATE SODIUM 100 MG CAP PO SCH ×2 (08:35→20:56)
[2020-01-25] MEDS: GABAPENTIN 100 MG CAP PO SCH ×2 (08:35→20:56)
[2020-01-25] MEDS: OMEPRAZOLE 20 MG CAP PO SCH ×2 (08:36→20:56)
[2020-01-25] MEDS: ASPIRIN 81 MG CHEW TABLET PO SCH (08:36)
[2020-01-25] MEDS: ATORVASTATIN 20 MG TAB PO SCH (08:36)
[2020-01-25] MEDS ORDERED: NOREPINEPHRINE BITARTRATE 8 MG in D5W 492 ML IV SCH (09:33)
--- NOTE | 2020-01-25 14:52 | IPNPDOC ---
Subjective Date Seen The patient was seen on 01/25/20. Subjective Chief Complaint/HPI Mrs. Trivedi is a 49 year old female with ESRD on dialysis (T,TH, SAT), diabetic nephropathy and neuropathy, and CAD s/p stent here with hypotension and frequent falls. Tinnitus present, but better. Discussed case with nephrology. Spoke with Dermatology about bullae, water blister, and possible autoimmune disease. Dermatology will see patient tomorrow for biopsy. Otherwise, patient denies fever, chest pain, or abdominal pain. Constitutional: Denies: Fever Eyes: Reports: Other (tinnitus) Skin: Reports: Rash Cardiovascular: Denies: Chest Pain Gastrointestinal: Denies: Abdominal Pain Objective Physical Examination General Exam: Positive: Alert, Cooperative, No Acute Distress Eye Exam: Positive: EOMI; Negative: Sclera icteric ENT Exam: Positive: Atraumatic Neck Exam: Positive: Supple Chest Exam: Positive: Diminished Heart Exam: Positive: Rate Normal, Regular Rhythm Abdomen Exam: Positive: BS Hypoactive, Soft Extremity Exam: Positive: Edema (bilateral pitting edema) Skin Exam: Positive: Other skin issue (Feet are erythematous, cold, and weeping) Neuro Exam: Positive: Other (Tinnitus) Psych Exam: Positive: Mental status NL, Mood NL Assessment /Plan Assessment Mrs. Trivedi is a 49 year old female with ESRD on dialysis (T,TH,SAT), diabetic nephropathy and neuropathy, and CAD s/p stents here with hypotension and camron quent falls. She recently tried to cut back on her fluid intake from 32ounces to 16ounces to reduced the edema. This most likely contributed to her hypotension and falls throughout the week. Otherwise, possible respiratory infection. Procalcitonin elevated at 0.54. Continue with empiric antibiotics. Otherwise, she continues to require Levophed. TSH elevated at 6, increased levothyroxine from 125mcg to 150mcg on 01/23/2020. Will need follow up TSH in 4 weeks. On 01/23/2020, she had thoracentesis. Removed 1150mL, demonstrated transudative fluid. Due to her persistent hypotension, she was started on Hydrocortisone. Pending results from AM cortisol level drawn prior to starting Hydrocortisone. Plan/VTE VTE Prophylaxis Ordered?: Yes Plan 1. Intravascular volume depletion/Hypotension -She has peripheral edema, but intravascularly depleted. -She has been fluid restricting herself to 16ounces (500mL) -Will relax fluid restriction for now to 1800mL and try to bring volume up -Continue midodrine -Central line placed 01/21/2020. Continues to require Levophed -Pending AM cortisole results which was drawn on 01/24/2020 -Started on Hydrocortisone today 2. Possible right pneumonia -CT chest demonstrated right moderate loculated right pleural effusion with associated compressive atelectasis/consolidation -Procalcitonin elevated at 0.54 (but decreased from 1.25 in 01/09/2020) -Continue empiric ceftriaxone. Today is last day of antibiotics -IR thoracentesis yesterday, removed 1150mL transudative fluid - Total Serum Protein 6.2. Pleural protein 1.8 - Serum LDH 359. Pleural LDH 103 - Serum albumin 3. Pleural albumin 0.8 3. ESRD on dialysis -Nephrology following, recommendations appreciated -Dialysis T,TH,SAT -Continue sevelamer 4. Hypothyroidism -TSH at 6.48, Free T4 0.94, Free T3 0.7 -Previous TSH was 12 -Increased on 01/23/2020 from 125mcg to 150mcg. She will need a repeat TSH in 4 weeks 5. Neuropathy -Bilateral feet burning and tenderness -Continue gabapentin -Continue lidocaine patch and PRN Tylenol 6. Diabetes mellitus type 2 -Insulin SS -Levemir 20units sub q 7. CAD s/p stent -Stable, no CP -Continue aspirin and statin -Hold Imdur 8. Pulmonary embolus -CTA on 12/31/2019 demonstrated PE int he subsegmental artery right lower lung posteriorly. -Eliquis on hold for anticipated thoracentesis 9. Bullae/Water blister -Dermatology consulted. Recommendations appreciated -Anticipating punch biopsy on Sunday. 9. DVT ppx -Eliquis on hold for anticipated punch biopsy on Sunday. SCD and TEDs Dispo: Pending improvement of BP VS, I&O, 24H, Fishbone Vital Signs/I&O Vital Signs Date Time Temp Pulse Resp B/P (MAP) Pulse Ox O2 Delivery O2 Flow Rate FiO2 01/25/20 12:00 97.7 66 17 92/52 (65) 97 Room Air 01/25/20 00:00 1.0 01/24/20 08:28 98 I&O- Last 24 Hours up to 6 AM 01/25/20 06:00 Intake Total 1247.0 ml Output Total 0 ml Balance 1247.0 ml Laboratory Data 24H LABS Laboratory Tests 2 01/24/20 17:03: Bedside Glucose (Misc Panel) 109H 01/24/20 19:46: Bedside Glucose (Misc Panel) 148H 01/25/20 04:44: Nucleated Red Blood Cells % (auto) 0.3H, Anion Gap 12, Glomerular Filtration Rate 8.8L, Calcium Level 8.7, C-Reactive Protein, Quantitative 5.16H, Complement C3 80L, Complement C4 16 01/25/20 11:55: Bedside Glucose (Misc Panel) 244H CBC/BMP Laboratory Tests 01/25/20 04:44 Microbiology Microbiology 01/23/20 Fungal Smear, Received Pending 01/23/20 Fungal Culture, Received Pending 01/23/20 Gram Stain - Final, Complete 01/23/20 Anaerobic Culture - Final, Complete 01/23/20 Body Fluid Culture - Final, Complete 01/20/20 Blood Culture - Final, Complete NO GROWTH AFTER 5 DAYS 01/20/20 Blood Culture - Final, Complete NO GROWTH AFTER 5 DAYS RON GLASS DO Jan 25, 2020 14:52
--- NOTE | 2020-01-25 15:15 | IPN ---
DATE: 01/23/2020 SUBJECTIVE: Subha is seen and examined this morning at the bedside in the ICU and later in the afternoon while receiving her dialysis treatment. She is status post thoracentesis today with 1100 cc of fluid drained. She continues on Levophed pressor support. Denies shortness of breath at rest, and remains on room air. PHYSICAL EXAMINATION: VITAL SIGNS: Temperature 98.6, pulse 90, respiratory rate 18, blood pressure 98/55, saturating 94 to 97% on room air. Intake yesterday was 800 cc. Thoracentesis today removed 1100 cc. Goal dialysis removal is only 500. Weight in the bed scale today is 78.1 kg. GENERAL: The patient is seen awake, alert and oriented, in no apparent distress. HEENT: Extraocular muscles are intact. Tongue is moist. Patient is having tinnitus and is hard of hearing. NECK: Supple. Jugular veins are elevated. CARDIAC: S1, S2. 1+ leg edema. LUNGS: Diminished breath sounds on the right base. Otherwise, no wheeze, crackle or rale. ABDOMEN: Soft and nontender. EXTREMITIES: There is a graft present in the right thigh. There is some erythema of the lower extremity skin and there is pitting edema 1+ that comes up to the mid thigh. NEUROLOGIC: She is oriented x3, at baseline mentation. PSYCHIATRIC: Appropriate mood and affect. LABORATORY DATA: White count 8.6, hemoglobin 11.5, platelets 87,000. Sodium 134, potassium 4.1. Albumin 2.7. INPATIENT MEDICATIONS: She is ordered for albumin with todays dialysis treatment. She continues on Levophed infusion at 3 mcg this morning. Her Synthroid dose was increased by the primary team to 150 mcg daily. The remainder of her medications are unchanged from prior. PROBLEMS: 1. End-stage renal disease on hemodialysis: She is off of her maintenance schedule (TTS). She is then dialyzed today following the thoracentesis. I am only going to remove about 500 cc today as she had 1.1 liters drained from the lung and she continues on Levophed for hemodynamic support and I am going to give her albumin 25 grams 25% times two doses with todays dialysis treatment. Her graft is in good use. Her electrolytes are acceptable. She remains on hypervolemic, but this has improved from prior. 2. Loculated right pleural effusion/right pneumonia; status post thoracentesis with 1.1 liter fluid drained: Patient is on Ceftriaxone per primary team. I am hoping that her blood pressure will improve with treatment of this loculated effusion and pneumonia. 3. Worsening hypotension: Patient is on Midodrine at home and we have increased the dose to 10 mg three times a day. Presently, she is also requiring Levophed for hemodynamic support and she is going to receive albumin with todays dialysis treatment for blood pressure augmentation. MTDD
--- NOTE | 2020-01-25 15:17 | IPN ---
DATE: 01/24/2020 Ms. Trivedi is seen this morning on her bedside in intensive care unit. She remains hypotensive on low dose Levophed. She underwent hemodialysis yesterday with some difficulty due to recurrent hypotension. Patient reports significant pain in her lower extremities and has dressings on both her legs. She denies any dyspnea, chest pain, nausea, or vomiting. On physical exam, she is not in any acute distress. Temperature is 97.8 degrees Fahrenheit, heart rate 80 per minute, and respiratory rate 18 per minute. Blood pressure 102/60 mmHg and oxygen saturation 96% on room air. Her head is atraumatic. Neck is supple and jugular venous distention (JVD) difficult to be assessed. Heart sounds are without a pericardial friction rub. Lungs sound clear to auscultation. Abdomen is soft, somewhat firm and full. Bowel sounds are normal. Extremities without any cyanosis or clubbing. Both legs are extremely cold and have multiple blisters. We opened the dressings and she has generalized erythema with small areas of superficial skin necrosis and blistering. No cyanosis or clubbing. Todays labs show sodium 135, potassium 4.1, chloride 95, CO2 28, BUN 40, and creatinine 4.51. Glucose 166 and calcium 8.7. Phosphorous 3.6. Serum albumin is 3.0. A cortisol level is still pending. We called the lab and I was informed that [facility] does not do this test over the weekend. WBC count is 7.3, hemoglobin 11.5, and hematocrit 38.7. Platelets 93. PROBLEMS: 1. End-stage renal disease. Patient was dialyzed yesterday and next dialysis will be scheduled for Sunday. There is no emergent need for dialysis today. 2. Hypotension. She has chronic hypotension despite the use of midodrine. She is now on Levophed and we have not been able to wean her off. She does not seem to have any acute infection at present. I opened the dressings from her legs and she has very superficial blistering and ulcers but no acute infection or drainage. I am concerned about possibility of adrenal insufficiency. I ordered a cortisol level, however [facility] does not run this test over the weekend. Will wait for the result and in the meantime I am going to start her on hydrocortisone 60 mg every 12 hours empirically. 3. Bilateral lower extremity blisters. I am concerned about possible dermatological problem. We will check her for C-reactive protein and also check her for lupus. I am starting her on low dose steroids. 4. History of recurrent pericardial and pleural effusions. At present, she is asymptomatic and we will continue our efforts to keep her volume status well compensated with dialysis. 5. Anemia. Her anemia has been stable and we will continue to monitor closely. There is no emergent need for transfusion at present. MTDD
[2020-01-25] MEDS: traMADol 50 MG TAB PO PRN (17:27)
[2020-01-25] MEDS: **NOTE PATIENT COMMENT** MISC XX SCH (20:57)
[2020-01-25] MEDS: ACETAMINOPHEN 500 MG TAB PO SCH (20:57)
[2020-01-26] VITALS (14 sets, daily range): BP systolic 92–108; BP diastolic 52–62
[2020-01-26 04:38] LABS: HEMATOCRIT 39.7 % (36.0-47.0); HEMOGLOBIN 11.7 g/dl (12.0-15.5); MEAN CORPUSCULAR HEMOGLOBIN 32.6 pg (27.0-33.0); MEAN CORPUSCULAR HGB CONC 29.5 g/dl (32.0-36.5); MEAN CORPUSCULAR VOLUME 110.6 fl (80.0-96.0); PLATELET COUNT, AUTOMATED 107 10^3/uL (150-450); RED BLOOD COUNT 3.59 10^6/uL (4.00-5.40); WHITE BLOOD COUNT 8.5 10^3/uL (4.0-10.0)
[2020-01-26 05:03] LABS: CALCIUM LEVEL 8.9 MG/DL (8.5-10.1); CREATININE FOR GFR 6.24 MG/DL (0.55-1.30); GLOMERULAR FILTRATION RATE 7.6 (>58); POTASSIUM SERUM 5.3 MEQ/L (3.5-5.1)
[2020-01-26] MEDS: ASPIRIN 81 MG CHEW TABLET PO SCH (06:39)
[2020-01-26] MEDS: LEVOTHYROXINE 150MCG TABLET (0.15MG) PO SCH (06:39)
[2020-01-26] MEDS: ATORVASTATIN 20 MG TAB PO SCH (06:39)
[2020-01-26] MEDS: DOCUSATE SODIUM 100 MG CAP PO SCH ×2 (06:39→20:53)
[2020-01-26] MEDS: HYDROCORTISONE 100 MG/2 ML VIAL (J1720 PER 1) IV SCH ×2 (06:39→20:53)
[2020-01-26] MEDS: OMEPRAZOLE 20 MG CAP PO SCH ×2 (06:40→20:52)
[2020-01-26] MEDS: ACETAMINOPHEN 500 MG TAB PO SCH ×2 (06:40→20:53)
[2020-01-26] MEDS: MIDODRINE 5 MG TAB PO SCH ×3 (06:40→16:40)
[2020-01-26] MEDS: GABAPENTIN 100 MG CAP PO SCH ×2 (06:41→20:53)
--- NOTE | 2020-01-26 08:08 | IPN ---
DATE: 01/25/2020 Ms. Trivedi is seen this morning on her bedside in intensive care unit. She is currently in the recliner chair and reports feeling slightly better today. She was started on intravenous hydrocortisone yesterday due to bullous blisters on her extremities, some rash on her forearms, and unexplained hypotension with possible adrenal insufficiency. She is off Levophed this morning and maintaining her blood pressure in high 90s. She reported a bowel movement this morning though she has chronic constipation. On physical exam, temperature 98 degrees Fahrenheit, heart rate 70 per minute, and respiratory rate 18 per minute. Blood pressure 98/60 mmHg and oxygen saturation 96% on room air. She has facial edema. Neck veins are not abnormally distended. Heart sounds are regular and without a pericardial friction rub. Lungs with diminished breath sounds at bases. Abdomen is soft, somewhat firm and nontender. Bowel sounds are present. Extremities without any cyanosis or clubbing. Skin has a rash on her forearms and significant erythema and blisters on her legs. Neurologically she is at her baseline mentation. Todays labs show WBC count 7.1, hemoglobin 12.0, and hematocrit 39.7. Platelets 93. Sodium 131, potassium 4.7, CO2 25, BUN 58, and creatinine 5.50. Glucose 211, calcium 8.7, C-reactive protein is 5.16. Her C3 is 80 and C4 16 while HAWA and anti-DNA are still pending. PROBLEMS: 1. End-stage renal disease. Patient was dialyzed on Sunday and we will plan to dialyze her tomorrow. No emergent need for dialysis today. 2. Anemia. Her anemia is stable at present and we will continue to monitor closely. No urgent indication for a transfusion. 3. Skin rash and blisters. I am concerned about possibility of some autoimmune process. We would like to get dermatology evaluation and I have discussed this with the hospitalist. I have already started her on low dose steroids. 4. Hypotension. Concerned about possibility of adrenal insufficiency due to persistent hypotension without any obvious reason. Unfortunately, we could not get a cortisol level yesterday. We will have to wait until Sunday as the [facility] lab does not do cortisols on weekends. She will remain on hydrocortisone 60 mg twice a day for now. 5. Hyponatremia. She has mild chronic hyponatremia which is unchanged. [facility]
[2020-01-26] MEDS: (RENVELA) SEVELAMER **CARBONate** 800 MG TAB PO SCH ×3 (08:22→17:30)
[2020-01-26] MEDS: HumaLOG INSULIN (NovoLOG) PER UNIT SC SCH ×4 (08:23→20:48)
[2020-01-26] MEDS: LEVEMIR (INSULIN DETEMIR) 1 UNITS/0.01ML SC SCH (08:23)
[2020-01-26 09:19] LABS: CORTISOL AM 21.7 UG/DL (4.3-22.4)
--- NOTE | 2020-01-26 16:17 | IPNPDOC ---
Subjective Date Seen The patient was seen on 01/26/20. Subjective Chief Complaint/HPI Mrs. Trivedi is a 49 year old female with ESRD on dialysis (T,TH, SAT), diabetic nephropathy and neuropathy, and CAD s/p stent here with hypotension and frequent falls. Today, she has been off Levophed for more than 24 hours. Tinnitus no longer present. She was able to have dialysis today. Otherwise, patient denies fever or chest pain. She does have some abdominal pain associated with BM. Otherwise, spoke with Derm. They feel that it is stasis bullae and sloughing. They will biopsy if HAWA is 1:320 or higher. No biopsy today Constitutional: Denies: Fever Pulmonary: Denies: Dyspnea Cardiovascular: Denies: Chest Pain Gastrointestinal: Reports: Abdominal Pain (associated with BM) Genitourinary: Denies: Dysuria Objective Physical Examination General Exam: Positive: Alert, Cooperative, No Acute Distress Eye Exam: Positive: EOMI; Negative: Sclera icteric ENT Exam: Positive: Atraumatic Neck Exam: Positive: Supple Chest Exam: Positive: Diminished Heart Exam: Positive: Rate Normal, Regular Rhythm Abdomen Exam: Positive: BS Hypoactive, Soft Extremity Exam: Positive: Edema (bilateral pitting edema) Skin Exam: Positive: Other skin issue (Feet are erythematous, cold, and weeping) Neuro Exam: Positive: Other (Tinnitus) Psych Exam: Positive: Mental status NL, Mood NL Assessment /Plan Assessment Mrs. Trivedi is a 49 year old female with ESRD on dialysis (T,TH,SAT), diabetic nephropathy and neuropathy, and CAD s/p stents here with hypotension and frequent falls. She recently tried to cut back on her fluid intake from 32ounces to 16ounces to reduced the edema. This most likely contributed to her hypotension and falls throughout the week. Otherwise, possible respiratory infection. Procalcitonin elevated at 0.54. Continue with empiric antibiotics. Otherwise, she continues to require Levophed. TSH elevated at 6, increased levothyroxine from 125mcg to 150mcg on 01/23/2020. Will need follow up TSH in 4 weeks. On 01/23/2020, she had thoracentesis. Removed 1150mL, demonstrated transudative fluid. Due to her persistent hypotension, she was started on Hydrocortisone. Pending results from AM cortisol level drawn prior to starting Hydrocortisone. Otherwise, she has been off of Levophed for more than 24 hours and tolerated dialysis. She will be transferred to PCU. Dermatology has evaluated the legs. Most likely stasis bullae and sloughing. They will biopsy only if HAWA is 1:320 or higher Plan/VTE VTE Prophylaxis Ordered?: Yes Plan 1. Intravascular volume depletion/Hypotension -She has peripheral edema, but intravascularly depleted. -She has been fluid restricting herself to 16ounces (500mL) -Will relax fluid restriction for now to 1800mL and try to bring volume up -Continue midodrine -Central line placed 01/21/2020. Of Levophed for more than 24 hours -AM cortisole results which was drawn on 01/24/2020 (prior to starting hydrocortisone) was 21.7, but hydrocortisone did help with discontinuing Levophed. Nephrology to switch IV hydrocortisone to PO hydrocortisone. 2. Possible right pneumonia -CT chest demonstrated right moderate loculated right pleural effusion with associated compressive atelectasis/consolidation -Procalcitonin elevated at 0.54 (but decreased from 1.25 in 01/09/2020) -Completed course of Ceftriaxone (5 days) -IR thoracentesis 01/23/2020, removed 1150mL transudative fluid - Total Serum Protein 6.2. Pleural protein 1.8 - Serum LDH 359. Pleural LDH 103 - Serum albumin 3. Pleural albumin 0.8 3. ESRD on dialysis -Nephrology following, recommendations appreciated -Dialysis T,TH,SAT -Continue sevelamer 4. Hypothyroidism -TSH at 6.48, Free T4 0.94, Free T3 0.7 -Previous TSH was 12 -Increased on 01/23/2020 from 125mcg to 150mcg. She will need a repeat TSH in 4 weeks 5. Neuropathy -Bilateral feet burning and tenderness -Continue gabapentin -Continue lidocaine patch and PRN Tylenol 6. Diabetes mellitus type 2 -Insulin SS -Levemir 20units sub q 7. CAD s/p stent -Stable, no CP -Continue aspirin and statin -Hold Imdur 8. Pulmonary embolus -CTA on 12/31/2019 demonstrated PE int he subsegmental artery right lower lung posteriorly. -Eliquis restarted 9. Bullae/Water blister -Dermatology consulted. Recommendations appreciated -Stasis bullae and sloughing. If HAWA is 1:320 or greater, they would biopsy 9. DVT ppx -Eliquis restarted. SCD and TEDs Dispo: Off of Levophed for 24 hours. Transferred to PCU. Nephrology to transition from IV hydrocortisone to PO hydrocortisone. Pending ARU consult VS, I&O, 24H, Fishbone Vital Signs/I&O Vital Signs Date Time Temp Pulse Resp B/P (MAP) Pulse Ox O2 Delivery O2 Flow Rate FiO2 01/26/20 12:00 1.0 01/26/20 12:00 97.2 72 20 96/52 (67) 97 Room Air 01/26/20 08:59 96 I&O- Last 24 Hours up to 6 AM 01/26/20 06:00 Intake Total 671.1 ml Output Total 0 ml Balance 671.1 ml Laboratory Data 24H LABS Laboratory Tests 2 01/25/20 17:19: Bedside Glucose (Misc Panel) 224H 01/25/20 20:12: Bedside Glucose (Misc Panel) 207H 01/26/20 04:14: Nucleated Red Blood Cells % (auto) 0.5H, Anion Gap 14, Glomerular Filtration Rate 7.6L, Calcium Level 8.9 01/26/20 11:59: Bedside Glucose (Misc Panel) 168H CBC/BMP Laboratory Tests 01/26/20 04:14 Microbiology Microbiology 01/23/20 Fungal Smear, Received Pending 01/23/20 Fungal Culture, Received Pending 01/23/20 Gram Stain - Final, Complete 01/23/20 Anaerobic Culture - Final, Complete 01/23/20 Body Fluid Culture - Final, Complete 01/20/20 Blood Culture - Final, Complete NO GROWTH AFTER 5 DAYS 01/20/20 Blood Culture - Final, Complete NO GROWTH AFTER 5 DAYS RON GLASS DO Jan 26, 2020 16:17
[2020-01-26] MEDS: APIXABAN 2.5 MG TAB (ELIQUIS) PO SCH (20:53)
[2020-01-26] MEDS: **NOTE PATIENT COMMENT** MISC XX SCH (20:53)
[2020-01-27] VITALS (27 sets, daily range): BP systolic 75–115; BP diastolic 46–78
[2020-01-27] MEDS: traMADol 50 MG TAB PO PRN (01:40)
[2020-01-27 05:06] LABS: HEMATOCRIT 42.4 % (36.0-47.0); HEMOGLOBIN 12.3 g/dl (12.0-15.5); MEAN CORPUSCULAR HEMOGLOBIN 32.2 pg (27.0-33.0); PLATELET COUNT, AUTOMATED 111 10^3/uL (150-450); RED BLOOD COUNT 3.82 10^6/uL (4.00-5.40); WHITE BLOOD COUNT 8.5 10^3/uL (4.0-10.0)
[2020-01-27] MEDS: LEVOTHYROXINE 150MCG TABLET (0.15MG) PO SCH (05:40)
[2020-01-27 05:42] LABS: CALCIUM LEVEL 9.3 MG/DL (8.5-10.1); CREATININE FOR GFR 5.2 MG/DL (0.55-1.30); GLOMERULAR FILTRATION RATE 9.4 (>58); POTASSIUM SERUM 5.5 MEQ/L (3.5-5.1)
--- NOTE | 2020-01-27 07:23 | CR.PDOC ---
General Date of Consultation: Jan 26, 2020 Attending Physician: RON GLASS DO Consultation REASON FOR CONSULTATION/CHIEF COMPLAINT: Concern for lupus of the skin HISTORY OF PRESENT ILLNESS: Mrs. Trivedi is a 49 year old female with ESRD on dialysis (,, SUN), diabetic nephropathy and neuropathy, and CAD s/p stent here with hypotension and frequent falls. She was recently hospitalized from 01/11/2020 to 01/13/2020 and left AMA. She did not do well at home. She fell 7 times at home over the ensuing week. She has scrapped up her arm and bruised the arms in her falls. She picks at her arms as well. She would have lightheadedness and pass out. There was some question to if she was taking her midodrine. In addition, she has been telling me she has cut back on her fluid intake. Before, it was 32 ounces (about 1000mL), but she cut back to 16 ounces (about 500mL). She has swelling of her legs and has been trying to reduce the edema. She says her legs were like water balloons. Otherwise, when I saw her, she denies any fever, chest pain, diarrhea, or new rashes. She has dyspnea on exertion. She has abdominal pain secondary to constipation. She has neuropathy in her feet. She cannot see color and does not know if there are any changes to her feet. Her feet are chronically cold and weepy. Nephrology, Dr. Patt Acevedo saw her in the ED, no dialysis today, but possibly tomorrow. Labs in the hospital revealed slight low C3, normal C4, pending total complement, low protein and albumin levels, pending HAWA and anti-dsDNA, cytology and block analysis of pleural fluid specimen = reactive changes, no malignancy found. ALLERGIES: Please see below. HOME MEDICATIONS: Please see below. Past Medical History Medical History 1. End-stage renal disease on dialysis on ,, SUN. 2. Pulmonary emboli on Eliquis. 3. Pericardial effusion. 4. History of coronary artery disease with stent. 5. History of hypercholesterolemia. 6. History of insulin-dependent diabetes with peripheral neuropathy. 7. History of peripheral vascular disease. 8. History of GERD. 9. History of anemia of chronic disease. 10. History of hypothyroidism. 11. She is legally blind in the left eye Surgical History 1. Hysterectomy. 2. She has had fistulas, right thigh fistula, left upper extremity fistula. Social History Smoker: Former Smoker (smoked for 30 years, 2ppd) Alcohol: Denies Drugs: Denies Review of Systems Constitutional: Denies: Fever Eyes: Reports: Other (Legally blind in left eye. Blurry right eye); Denies: Vision change Skin: Denies: Rash Pulmonary: Reports: Other Symptoms (dyspnea on exertion) Cardiovascular: Denies: Chest Pain Gastrointestinal: Reports: Abdominal Pain (secondary to abdominal pain), Constipation; Denies: Nausea Genitourinary: Reports: Other Symptoms (No urine output) Hematologic: Reports: Bruising Musculoskeletal: Reports: Muscle Pain (legs/neuropathy) Neurological: Reports: Weakness Psych: Reports: Anxiety (Occasional) Physical Examination VITAL SIGNS: Please see below. GENERAL APPEARANCE: WDWNWF in poor state of health in bed in the ICU, sallow appearance HEENT: Patient can identify shadow movements but cannot discern color (vision), can move eyes RESPIRATORY: No acute labored breathing CARDIOVASCULAR: + edema in the legs > arms and rest of body (mild) ABDOMEN: Soft and supple EXTREMITIES and SKIN: Well perfused, arms warm, legs cooler; sloughing skin of the lower legs especially the dependent areas of the posterior calves and feet; erythematous patches with pinpoint bleeding on lower legs as well; arms with excoriated papules and crusted scabs with bruising present on forearms predominantly; pain with removing of bandaging from lower legs NEUROLOGICAL: AOX4 PSYCHIATRIC: Mood appropriate and congruent to situation LABORATORY DATA: Please see below. ASSESSMENT/PLAN: 1. Stasis dermatitis, legs: Do not favor cutaneous lupus. Patient aware. I favor volume overload in the legs with subsequent desquamation of the skin (slough) predominantly in the dependent areas. The low C3 is likely in the setting of aberrant synthetic function of the liver and/or her very advanced kidney disease with minimal if any GFR. I think her pericardial and pleural effusion problems are related to her non-adherence and fluid status. She is aware of this. I would follow the HAWA and anti-dsDNA tests, if HAWA is positive at 1:320 or greater then we could perform the biopsy of a skin lesion. In the absence of a positive lab test for lupus, I would not pursue a skin biopsy further. A skin biopsy of the leg in this patient would very likely lead to a chronic non-healing wound that would require multiple visits to wound center and months to a year to heal (if it did) given her comorbidities, patient is aware and agrees with plan. I would make sure she has compressive type wraps on the legs and elevate the legs as much as possible. Thick layer of emollient face to feet daily after bathing. 2. Bruising and skin damage to arms: Favor traumatic injury and picking of arms. Keep long sleeves on patient. Apply thick emollient to arms daily. Patient needs social media executive to help her at home not fall and bump into things, she is aware of this. Thank you for this consultation. Dermatology will follow as labs above come in. We can see patient as an outpatient as well. Trinidad Diaz MD FAAD [phone] Vital Signs/I&O Vital Signs Date Time Temp Pulse Resp B/P (MAP) Pulse Ox O2 Delivery O2 Flow Rate FiO2 01/27/20 04:00 97.4 69 18 106/58 (74) 97 Nasal Cannula 1.0 01/26/20 08:59 96 I&O- Last 24 Hours up to 6 AM 01/27/20 06:00 Intake Total 890.0 ml Output Total 2000 ml Balance -1110.0 ml Laboratory Data Labs 24H Laboratory Tests 2 01/26/20 11:59: Bedside Glucose (Misc Panel) 168H 01/26/20 17:03: Bedside Glucose (Misc Panel) 186H 01/26/20 20:42: Bedside Glucose (Misc Panel) 207H 01/27/20 04:55: Nucleated Red Blood Cells % (auto) 0.7H, Anion Gap 13, Glomerular Filtration Rate 9.4L, Calcium Level 9.3 CBC/BMP Laboratory Tests 01/27/20 04:55 Microbiology Microbiology 01/23/20 Fungal Smear, Received Pending 01/23/20 Fungal Culture, Received Pending 01/23/20 Gram Stain - Final, Complete 01/23/20 Anaerobic Culture - Final, Complete 01/23/20 Body Fluid Culture - Final, Complete 01/20/20 Blood Culture - Final, Complete NO GROWTH AFTER 5 DAYS 01/20/20 Blood Culture - Final, Complete NO GROWTH AFTER 5 DAYS Allergies Coded Allergies: Penicillins (Verified Allergy, Unknown, UNKNOWN CHILDHOOD REACTION, 09/11/18) PER [facility] RECORDS PT HAS RECEIVED MEROPENEM AND CEFEPIME IN THE PAST Home Medications Scheduled Apixaban (Eliquis) 2.5 Mg Tablet, 2.5 MG PO BID, (Reported) Aspirin (Aspirin) 81 Mg Tab.chew, 81 MG PO DAILY, (Reported) Atorvastatin Calcium (Atorvastatin Calcium) 20 Mg Tablet, 20 MG PO DAILY, (Reported) Ergocalciferol (Vitamin D2) (Vitamin D2) 50,000 Units Cap, 50,000 CAP PO QWEEK, (Reported) sunday Folic Acid/Vit B Complex and C (April-Antonina Tablet) 0.8 Mg Tablet, 0.8 MG PO DAILY, (Reported) Gabapentin (Gabapentin) 100 Mg Capsule, 200 MG PO BID, (Reported) Insulin Glargine,Hum.rec.anlog (Basaglar Kwikpen U-100) 100 Unit/1 Ml Insuln.pen, 20 UNIT SC DAILY, (Reported) Isosorbide Mononitrate (Isosorbide Mononitrate ER) 30 Mg Tab.er.24h, 30 MG PO DAILY, (Reported) Levothyroxine Sodium (Levothyroxine Sodium) 125 Mcg Tablet, 125 MCG PO QAM, (Reported) Metoprolol Tartrate (Metoprolol Tartrate) 50 Mg Tablet, 50 MG PO BID, (Reported) Midodrine HCl (Midodrine HCl) 5 Mg Tablet, 5 MG PO TID, (Reported) Omeprazole (Omeprazole) 40 Mg Capsule.dr, 40 MG PO BID, (Reported) Prednisone (Prednisone) 10 Mg Tablet, 10 MG PO DAILY, (Reported) Sevelamer Carbonate (Sevelamer Carbonate) 800 Mg Tablet, 1,600 MG PO WM, (Rep orted) Scheduled PRN Magnesium Hydroxide (Milk of Magnesia) 400 Mg/5 Ml Oral.susp, 30 ML PO DAILY PRN for CONSTIPATION, (Reported) Polyethylene Glycol 3350 (Miralax) 119 Gm Powder, 17 GM PO BID PRN for CONSTIPATION, (Reported) TRINIDAD DIAZ MD Jan 27, 2020 07:23
--- NOTE | 2020-01-27 08:26 | IPN ---
DATE: 01/26/2020 SUBJECTIVE: Mrs. Trivedi is seen this morning at her bedside in the Intensive Care Unit. She is currently being dialyzed in her room. She is feeling better today and has been off Levophed for the last couple of days. We will give her albumin 12.5 grams at the start of dialysis. She has also been on low dose steroids with hydrocortisone 50 mg b.i.d. due to unexplained hypotension and blistering of skin. A Dermatology evaluation is pending. PHYSICAL EXAMINATION: VITAL SIGNS: Temperature 97.4 degrees Fahrenheit, heart rate is 65 per minute and respiratory rate 18 per minute. Blood pressure 105/55 mmHg and oxygen saturation 97% on 2 liters oxygen. HEAD: Atraumatic. Face is somewhat swollen. NECK: Neck veins are difficult to be assessed. There is no oral thrush or ulcers. HEART: Heart sounds are regular. LUNGS: Diminished breath sounds at bases. ABDOMEN: Soft and nontender. Bowel sounds are normal. EXTREMITIES: Without any cyanosis or clubbing. Right thigh hemodialysis graft is being used. SKIN: Skin has a rash and blisters on her extremities. NEUROLOGIC: She is awake, alert and at her baseline mentation. LABS: Todays labs showed a sodium of 132, potassium 5.3, CO2 24, BUN 71 and creatinine 6.24. Glucose is 205 and calcium is 8.9. WBC is 8.5, hemoglobin is 11.7 and hematocrit is 39.7, platelets 107,000. PROBLEMS: 1. Endstage renal disease. Patient is currently being dialyzed and she is tolerating her dialysis treatment well. We are trying to remove about 2 liters of fluid and she is maintaining her blood pressure so far. 2. Hypotension. She has been on Levophed and since we started the steroids we have been able to stop her Levophed. We will continue with hydrocortisone for now. She is maintaining her blood pressure just above 100 mmHg during dialysis today. 3. Hyperkalemia, mild hyperkalemia related to endstage renal disease and will be corrected with dialysis. No other intervention is indicated. 4. Anemia, at present her anemia is stable and will continue to monitor closely. 5. Peripheral edema and skin rash. She was hypotensive for a long time and we were not able to remove fluid aggressively due to which she has developed significant peripheral edema. Now that her blood pressure has improved, we will try to remove about 2 liters of fluid today. Will wait for dermatology evaluation. [facility]
--- NOTE | 2020-01-27 08:41 | IPNPDOC ---
Date Seen The patient was seen on 01/27/20. Progress Note SUBJECTIVE: The patient has been seen and examined at the bedside. Her chart has been reviewed. She complains of 10 out of 10 pain described as a size sharp and constant of bilateral lower extremity this morning. She's had no fever and chills. No pruritus. Despite elevated potassium on blood work this morning. Patient's telemetry, had no signs of peak T waves. She has dialysis on Sunday, , Sunday, managed by her line therapist, Dr. Camilla Acevedo. No other issues overnight per nursing OBJECTIVE PHYSICAL EXAMINATION: VITAL SIGNS: Please see below. GENERAL: Awake, alert, oriented to person, place and time. No respiratory distress, able to speak in full sentences HEENT: No JVD, no thyromegaly. Moist mucous membranes. No cervical lymphadenopathy CARDIOVASCULAR: S1, S2, sinus rhythm, no murmurs, rubs or gallops. No pericardial friction rub RESPIRATORY: Air entry is equal bilaterally. No wheezing, rales or rhonchi. No adventitious breath sounds. No scoliosis or kyphosis ABDOMINAL: Soft Positive bowel sounds 4 quadrants. No Hepatosplenomegaly. No rebound or guarding. No abdominal bruit noted EXTREMITIES: Chronic venous stasis changes, 1+ pitting edema bilaterally bandaged. SKIN: Multiple blisters bilateral lower extremities. Erythematous non-indurated rash on bilateral forearms LABORATORY DATA, IMAGING STUDIES, MICROBIOLOGY: Please see below. Cortisol 21.7 HOSPITAL MEDICATIONS: Hydrocortisone, Florinef, apixaban Colace, Tylenol, tramadol, Zofran, Synthroid, midodrine, Renvela, insulin sliding scale, hypoglycemic protocol. MiraLAX, aspirin, Lipitor, Neurontin, Levemir insulin ,Prilosec ASSESSMENT AND PLAN: 49-year-old female with history of diabetic nephropathy and neuropathy, end-stage renal disease on maintenance hemodialysis on Sunday, , Sunday, coronary artery disease status post stents, type 2 diabetes, hypothyroidism, pulmonary embolism presented to the emergency room with hypotension and falls with pro-calcitonin elevation of 0.54. Patient was initially admitted to the intensive care unit due to severe hypotension requiring Levophed IV drip. PROBLEMS: Hypotension requiring Levophed drip, with normal cortisol of 21.7 Bilateral lower extremity blisters, Status post biopsy by dermatology Partially loculated right pleural effusion. Hypothyroidism with elevated TSH of 6.48 on hospital admission Insulin-dependent Type 2 diabetes Diabetic neuropathy and nephropathy End-stage renal disease on maintenance hemodialysis Sunday, , Sunday Coronary artery disease status post coronary artery stents Pulmonary embolism on [facility] 12/31/2019 on chronic ELIQUIS Hyperkalemia Chronic hyponatremia PLAN: Patient has been off of Levophed drip for hypotension, currently still on tapering dose of hydrocortisone midodrine Florinef and maintaining her mean arterial pressure greater than 70. Per product support sales representative, patient's lower extremity blisters are most likely due to trauma, but rheumatology workup is still pending. Pleural fluid on 01/23/2020, remain negative and patient has been off antibiotics without a fever or elevated white count. Patient's Synthroid has been increased due to elevated TSH. She is continued on her home dose of Elavil was renally dosed for pulmonary embolism that was detected in December. Nephrology has been consulted for her nephrology needs. Since her blood pressure is well maintained with mean arterial pressure greater than 70, patient is at lower risk of falling and her activity level will be increased to activity as tolerated. A RU will be consulted. Patient's elevated potassium will not be treated with Kayexalate, as today is her dialysis day. Her elevated potassium will most likely be treated with dialysis. She is medically stable for transfer to medical surgical floor. VS, I&O, 24H, Fishbone Vital Signs/I&O Vital Signs Date Time Temp Pulse Resp B/P (MAP) Pulse Ox O2 Delivery O2 Flow Rate FiO2 01/27/20 07:59 97.5 69 16 105/60 (75) 97 Nasal Cannula 1.0 01/26/20 08:59 96 I&O- Last 24 Hours up to 6 AM 01/27/20 06:00 Intake Total 890.0 ml Output Total 2000 ml Balance -1110.0 ml Laboratory Data 24H LABS Laboratory Tests 2 01/26/20 11:59: Bedside Glucose (Misc Panel) 168H 01/26/20 17:03: Bedside Glucose (Misc Panel) 186H 01/26/20 20:42: Bedside Glucose (Misc Panel) 207H 01/27/20 04:55: Nucleated Red Blood Cells % (auto) 0.7H, Anion Gap 13, Glomerular Filtration Rate 9.4L, Calcium Level 9.3 CBC/BMP Laboratory Tests 01/27/20 04:55 Microbiology Microbiology 01/23/20 Fungal Smear, Received Pending 01/23/20 Fungal Culture, Received Pending 01/23/20 Gram Stain - Final, Complete 01/23/20 Anaerobic Culture - Final, Complete 01/23/20 Body Fluid Culture - Final, Complete 01/20/20 Blood Culture - Final, Complete NO GROWTH AFTER 5 DAYS 01/20/20 Blood Culture - Final, Complete NO GROWTH AFTER 5 DAYS VENKATA LY MD Jan 27, 2020 08:40
[2020-01-27] MEDS: ASPIRIN 81 MG CHEW TABLET PO SCH (08:55)
[2020-01-27] MEDS: MIDODRINE 5 MG TAB PO SCH ×3 (08:56→16:36)
[2020-01-27] MEDS: OMEPRAZOLE 20 MG CAP PO SCH (08:56)
[2020-01-27] MEDS: DOCUSATE SODIUM 100 MG CAP PO SCH (08:56)
[2020-01-27] MEDS: ATORVASTATIN 20 MG TAB PO SCH (08:56)
[2020-01-27] MEDS: (RENVELA) SEVELAMER **CARBONate** 800 MG TAB PO SCH ×4 (08:56→17:49)
[2020-01-27] MEDS: GABAPENTIN 100 MG CAP PO SCH (08:56)
[2020-01-27] MEDS: APIXABAN 2.5 MG TAB (ELIQUIS) PO SCH (08:57)
[2020-01-27] MEDS: ACETAMINOPHEN 500 MG TAB PO SCH (08:58)
[2020-01-27] MEDS: HumaLOG INSULIN (NovoLOG) PER UNIT SC SCH ×3 (08:59→17:47)
[2020-01-27] MEDS: LEVEMIR (INSULIN DETEMIR) 1 UNITS/0.01ML SC SCH (08:59)
[2020-01-27] MEDS ORDERED: FLUDROCORTISONE ACETATE 0.1 MG TAB PO SCH (09:00)
[2020-01-27] MEDS ORDERED: HYDROCORTISONE 10 MG TAB PO SCH (09:00)
--- NOTE | 2020-01-27 15:42 | IPN ---
DATE: 01/27/2020 Ms. Trivedi is seen this morning on her bedside. She is feeling better and has been transferred out of intensive care unit. She was dialyzed yesterday, and we were able to remove about 2 liters of fluid, and her blood pressure remained stable. She denies any nausea, vomiting, dyspnea, or chest pain. She was seen by dermatology due to multiple blisters and erythema; however, dermatology felt that she has mostly stasis dermatitis and not any vasculitis PHYSICAL EXAMINATION: Temperature 97.2 degrees Fahrenheit, heart rate 70 per minute, respiratory rate 16 per minute, blood pressure 112/78 mm of mercury, and oxygen saturation 96%. Her head is atraumatic. Facial edema is present. Neck veins are mildly distended. Heart sounds are regular and lungs with diminished breath sounds at bases. Abdomen soft and nontender. Bowel sounds are normal. Extremities without any cyanosis or clubbing. Right thigh hemodialysis graft is patent. Both lower legs are wrapped in dressing. She has some rash on her forearms too. Neurologically, she is at her baseline mentation. Today's labs shows WBC count 8.5, hemoglobin 12.3, hematocrit 42.2, platelets 111. Sodium 133, potassium 5.5, CO2 of 22, BUN 57, and creatinine 5.2. Glucose 234 and calcium 9.3. PROBLEMS: 1. Hyperkalemia. This is unexpected, as she was dialyzed just late yesterday afternoon. We will plan to dialyze her again today and use a 2.0 mEq potassium bath. We hope that her potassium will be corrected. 2. Hyponatremia. This is chronic and persistent. She is somewhat volume overloaded. WE anticipate further improvement with hemodialysis and fluid removal. 3. End-stage renal disease. Patient was dialyzed yesterday, and we plan to dialyze her again today due to hyperkalemia and hypervolemia. We will try to remove about 2 liters of fluid. 4. Hypotension. Blood pressure improved since she has been on hydrocortisone, and she has not required any other pressors. Her cortisol level came back 21.7. I am going to keep her on some hydrocortisone with oral dose of 10 mg twice a day and also adding fludrocortisone 0.1 mg one a day for her chronic hypotension and see how she does. 5. Skin ulcers and blisters. She has been seen by dermatology, and any vasculitis has been ruled out by dermatology. We have serology still pending for HA[place] and anti-DNA. MTDD
[2020-01-27] MEDS: ONDANSETRON 4MG/2ML VIAL IV PRN (16:36)
[2020-01-27] MEDS ORDERED: PROMETHAZINE INJ 25 MG/ML VIAL (J2550) IV PRN (18:30)
[2020-01-27] MEDS ORDERED: NALOXONE INJ 0.4MG/1ML VIAL (J2310 PER 1MG) As Ordered ONE (19:51)
[2020-01-27] MEDS ORDERED: NALOXONE INJ 0.4MG/1ML VIAL (J2310 PER 1MG) IV ONE (20:00)
--- NOTE | 2020-01-27 20:23 | IPNPDOC ---
Text Note Date of Service The patient was seen on 01/27/20. NOTE Max Card was called 7:40 PM. Patient was found unresponsive, pulseless. CPR started immediately. I arrived 7:42 PM. CPR was initiated and conducted as per ACLS protocol. Total duration of CPR: 20minutes. Patient received 7 rounds of epi, bicarbonate 3 times, Narcan 2 times, calcium gluconate. Result of Code: ROSC. Patient was transferred to ICU. Next of kin notified: Yes Labs ordered: ABG, CBC, CMP, lactate VS,Fishbone, I+O VS, Fishbone, I+O Laboratory Tests 01/27/20 04:55 Vital Signs Date Time Temp Pulse Resp B/P (MAP) Pulse Ox O2 Delivery O2 Flow Rate FiO2 01/27/20 16:00 97.5 79 18 107/71 (83) 93 Nasal Cannula 1.0 01/26/20 08:59 96 I&O- Last 24 Hours up to 6 AM 01/27/20 06:00 Intake Total 890.0 ml Output Total 2000 ml Balance -1110.0 ml MARIIA SHEIKH DO Jan 27, 2020 20:23
[2020-01-27 20:27] LABS: ABG BASE EXCESS -9.7 (-2.0-2.0); ABG HCO3 23.3 MEQ/L (22.0-26.0); ABG O2 SATURATION 16.8 % (95.0-99.0); ABG STANDARD HCO3 15.3 MEQ/L (22.0-26.0); ABG TOTAL CO2 26.3 MEQ/L (22.0-29.0); ABG pH (ARTERIAL) 6.998 UNITS (7.350-7.450)
[2020-01-27 20:28] LABS: ABG PARTIAL PRESSURE CO2 97.3 mmHg (35.0-45.0); ABG PARTIAL PRESSURE O2 22.6 mmHg (75.0-100.0)
[2020-01-27 20:32] LABS: HEMATOCRIT 44.2 % (36.0-47.0); HEMOGLOBIN 12.2 g/dl (12.0-15.5); MEAN CORPUSCULAR HEMOGLOBIN 32.1 pg (27.0-33.0); MEAN CORPUSCULAR HGB CONC 27.6 g/dl (32.0-36.5); MEAN CORPUSCULAR VOLUME 116.3 fl (80.0-96.0); PLATELET COUNT, AUTOMATED 50 10^3/uL (150-450); WHITE BLOOD COUNT 8.6 10^3/uL (4.0-10.0)
[2020-01-27] MEDS ORDERED: SODIUM BICARBONATE 8.4% INJ 50 ML SYRINGE As Ordered ONE (20:34)
--- NOTE | 2020-01-27 20:44 | REPVR ---
PROCEDURE INFORMATION: Exam: XR Chest, 1 View Exam date and time: 01/27/2020 8:27 PM Age: 49 years old Clinical indication: Other: Post intubation TECHNIQUE: Imaging protocol: XR of the chest Views: 1 view. COMPARISON: CR PORTABLE CHEST X-RAY 01/21/2020 11:09 AM FINDINGS: Tubes, catheters and devices: Endotracheal tube lies 6 cm above the anant. No change in position of right subclavian vascular catheter. Lungs: Pulmonary vascular/interstitial pattern suggests acute pulmonary edema. No concerning parenchymal lung mass. Pleural space: Probable associated layering pleural effusions. No evidence of pneumothorax. Heart/Mediastinum: Cardiac silhouette is enlarged. Bones/joints: Osseous structures are unremarkable. Soft tissues: Extra thoracic soft tissues show no asymmetry. IMPRESSION: 1. Pulmonary edema with diffuse interstitial infiltrates and layering pleural effusions. Multifocal pneumonia may underlying this. 2. Endotracheal tube positioned 6 cm above the anant Electronically signed by: Edward Mckinnon On 01/27/2020 20:43:40 PM
[2020-01-27] MEDS ORDERED: NOREPINEPHRINE 4 MG/4 ML AMP As Ordered ONE (20:47)
[2020-01-27 20:52] LABS: ALBUMIN 2.5 GM/DL (3.2-5.2); BILIRUBIN,TOTAL 0.7 MG/DL (0.2-1.0); CREATININE FOR GFR 3.94 MG/DL (0.55-1.30); GLOMERULAR FILTRATION RATE 12.9 (>58); MB/CK RELATIVE INDEX 14.6 (< OR =4); POTASSIUM SERUM 4.2 MEQ/L (3.5-5.1); TOTAL PROTEIN 5.9 GM/DL (6.4-8.2); TROPONIN I 0.84 NG/ML (< 0.10)
[2020-01-27] MEDS ORDERED: NOREPINEPHRINE BITARTRATE 16 MG in D5W 484 ML IV SCH (21:00)
[2020-01-27] MEDS ORDERED: CHLORHEXIDINE GLUCONATE 0.12 % 15ML UDC (PERIDEX ORAL RINSE) MT SCH (21:00)
[2020-01-27 21:13] LABS: ABG BASE EXCESS -9.7 (-2.0-2.0); ABG HCO3 18.4 MEQ/L (22.0-26.0); ABG O2 SATURATION 88.9 % (95.0-99.0); ABG PARTIAL PRESSURE CO2 49.2 mmHg (35.0-45.0); ABG PARTIAL PRESSURE O2 72.3 mmHg (75.0-100.0); ABG STANDARD HCO3 16.6 MEQ/L (22.0-26.0); ABG TOTAL CO2 19.9 MEQ/L (22.0-29.0)
[2020-01-27 21:15] LABS: ABG pH (ARTERIAL) 7.191 UNITS (7.350-7.450)
--- NOTE | 2020-01-27 21:24 | REPVR ---
PROCEDURE INFORMATION: Exam: XR Chest, 1 View Exam date and time: 01/27/2020 9:19 PM Age: 49 years old Clinical indication: Other: Central line; Additional info: Post central line TECHNIQUE: Imaging protocol: XR of the chest Views: 1 view. COMPARISON: CR PORTABLE CHEST X-RAY 01/27/2020 8:21 PM FINDINGS: Left IJ vascular line has been placed and lies at the junction of the SVC and innominate vein. No evidence of pneumothorax. Nasogastric tube has been placed into the proximal stomach Diffuse airspace infiltrates and bilateral pleural effusions remain. IMPRESSION: Interval placement of nasogastric tube and left IJ vascular catheter, appropriately positioned without evidence of complication. Severe diffuse airspace disease and bilateral pleural effusions without change Electronically signed by: Edward Mckinnon On 01/27/2020 21:23:44 PM
[2020-01-27] MEDS ORDERED: VANCOMYCIN HCL 1,000 MG, VIAL MATE ADAPTER 1 EACH in D5W 250 ML IV ONE (21:30)
[2020-01-27] MEDS ORDERED: PANTOPRAZOLE SODIUM 40 MG in D5W 50 ML IV SCH (21:30)
[2020-01-27] MEDS ORDERED: SODIUM BICARBONATE 150 MEQ in D5W 1,000 ML IV SCH (21:30)
[2020-01-27] MEDS ORDERED: HYDROCORTISONE 100 MG/2 ML VIAL (J1720 PER 1) IV SCH (22:00)
[2020-01-27 22:12] LABS: CALCIUM LEVEL 17.6 MG/DL (8.5-10.1)
[2020-01-27] MEDS ORDERED: VANCOMYCIN HCL 750 MG, VIAL MATE ADAPTER 1 EACH in D5W 250 ML IV ONE (23:00)
[2020-01-27 23:05] LABS: IONIZED CALCIUM 4.7 MG/DL (4.5-5.3)
[2020-01-27 23:20] LABS: ALBUMIN 2.7 GM/DL (3.2-5.2); BILIRUBIN,DIRECT 0.5 MG/DL (0.0-0.2); TOTAL PROTEIN 6.2 GM/DL (6.4-8.2)
[2020-01-28] VITALS: BP 99/52
[2020-01-28] MEDS ORDERED: VANCOMYCIN HCL 750 MG, VIAL MATE ADAPTER 1 EACH in D5W 250 ML IV ONE ×3
[2020-01-28 00:05] VITALS: BP 104/53
[2020-01-28 00:10] VITALS: BP 107/52
[2020-01-28 00:15] VITALS: BP 100/60
[2020-01-28] MEDS ORDERED: NALOXONE INJ 0.4MG/1ML VIAL (J2310 PER 1MG) ONE (03:11)
[2020-01-28] MEDS ORDERED: SODIUM BICARBONATE 8.4% INJ 50 ML SYRINGE ONE (03:11)
[2020-01-28] MEDS ORDERED: CALCIUM CHLORIDE 10% 1 GM/10 ML SYR ONE (03:11)
[2020-01-28] MEDS ORDERED: EPINEPHrine 1MG/10ML SYRINGE 1.5IN ONE (03:11)
[2020-01-28] MEDS ORDERED: MAGNESIUM SULFATE 1GM/2ML (8MEQ/2ML) VIAL ONE (03:11)
[2020-01-28] MEDS ORDERED: IPRATROPIUM 0.5MG/ALBUTEROL 2.5MG INH SOL UD 3ML (DUONEB) NEB SCH (08:00)
--- NOTE | 2020-01-28 08:45 | DSES ---
DATE OF ADMISSION: 01/20/2020 DATE OF : 01/28/2020 Time of 01:15 01/28/20 BRIEF HISTORY: The patient had a long hospital stay with features of congestive heart failure, volume overload, endstage renal disease requiring dialysis with issues with hypotension, reported history of pneumonia with loculated effusion, hypothyroidism, neuropathy, diabetes, coronary artery disease status post stenting with a history of recent pulmonary embolus diagnosed on 12/31/2019, on [facility]. I have known the patient only for a few hours as she required Critical Care after an arrest where she was down for approximately 20 minutes. The patients family had decided to withdraw care given the fact that she had no significant neurologic recovery and that they believe she would not want to go through any further resuscitation. She ultimately passed. She had no spontaneous breathing. Suspected diagnosis was arrhythmia causing a sudden cardiopulmonary arrest given the fact that she went into a very acute pulmonary edema based on chest imaging. The patients family requested an autopsy, therefore the patient will be referred for autopsy. Addendum: I was contacted by the pathologist later in the day of 01/28/20 and the patient's family had changed their minds in regards to wanting an autopsy. Therefore this was not performed. LESVIA
--- NOTE | 2020-01-28 10:11 | IPNPDOC ---
Date Seen The patient was seen on 01/28/20. Progress Note FAMILY REQUEST FOR AUTOPSY: -Dr. Middleton has discussed the case with the acquisition advisor insurance claims examiner who declined the autopsy. -I have spoken with Dr. Duarte, who also declined the autopsy. -Dami Rehman, , sister and HCP, was informed that Dr. Duarte will discuss the case with her, and offer the family the option of having a private pathologist do the autopsy if family insists, but it will have to be privately paid for. VS, I&O, 24H, Fishbone Vital Signs/I&O Vital Signs Date Time Temp Pulse Resp B/P (MAP) Pulse Ox O2 Delivery O2 Flow Rate FiO2 01/28/20 00:41 22 100 01/28/20 00:17 101 01/28/20 00:15 100/60 (73) Ventilator 01/27/20 23:25 94 01/27/20 16:00 97.5 1.0 I&O- Last 24 Hours up to 6 AM 01/28/20 05:59 Intake Total 1060 ml Output Total 1500 ml Balance -440 ml Laboratory Data 24H LABS Laboratory Tests 2 01/27/20 11:18: Bedside Glucose (Misc Panel) 299H 01/27/20 16:48: Bedside Glucose (Misc Panel) 161H 01/27/20 19:44: Bedside Glucose (Misc Panel) 118H 01/27/20 20:00: Nucleated Red Blood Cells % (auto) 3.7H, Immature Platelet Fraction 8.9, Blood Gas Bicarbonate Standard 15.3L, Arterial Blood pH 6.998*L, Arterial Blood Partial Pressure CO2 97.3*H, Arterial Blood Partial Pressure O2 22.6*L, Arterial Blood Total CO2 26.3, Arterial Blood HCO3 23.3, Arterial Blood Base Excess - 9.7L, Arterial Blood Oxygen Saturation 16.8L, Anion Gap 19H, Glomerular Filtration Rate 12.9L, Calcium Level 17.6#*H, Total Bilirubin 0.7, Aspartate Amino Transf (AST/SGOT) 104H, Alanine Aminotransferase (ALT/SGPT) 40, Alkaline Phosphatase 185H, Total Creatine Kinase 137, Creatine Kinase MB 20.0H, Creatine Kinase MB Relative Index 14.60H, Troponin I 0.84H, Total Protein 5.9L, Albumin 2.5L, Albumin/Globulin Ratio 0.7L 01/27/20 20:35: Bedside Glucose (Misc Panel) 138H 01/27/20 21:08: Blood Gas Bicarbonate Standard 16.6L, Arterial Blood pH 7.191*L, Arterial Blood Partial Pressure CO2 49.2H, Arterial Blood Partial Pressure O2 72.3L, Arterial Blood Total CO2 19.9L, Arterial Blood HCO3 18.4L, Arterial Blood Base Excess - 9.7L, Arterial Blood Oxygen Saturation 88.9L 01/27/20 22:02: Lactic Acid Level 8.9*H, Whole Blood Ionized Calcium 4.7, Total Bilirubin 1.0, Direct Bilirubin 0.5H, Aspartate Amino Transf (AST/SGOT) 171H, Alanine Aminotransferase (ALT/SGPT) 51, Alkaline Phosphatase 208H, Total Protein 6.2L, Albumin 2.7L, Albumin/Globulin Ratio 0.8L CBC/BMP Laboratory Tests 01/27/20 20:00 Microbiology Microbiology 01/27/20 Blood Culture, Received Pending 01/23/20 Fungal Smear, Received Pending 01/23/20 Fungal Culture, Received Pending 01/23/20 Gram Stain - Final, Complete 01/23/20 Anaerobic Culture - Final, Complete 01/23/20 Body Fluid Culture - Final, Complete 01/20/20 Blood Culture - Final, Complete NO GROWTH AFTER 5 DAYS 01/20/20 Blood Culture - Final, Complete NO GROWTH AFTER 5 DAYS VENKATA LY MD Jan 28, 2020 10:11
--- NOTE | 2020-01-28 10:14 | ECHO ---
DATE OF PROCEDURE: 01/27/2020 Age: 49 Gender: Female Height: 63 inches Weight: 176 pounds REFERRING PHYSICIAN: Bartolo Middleton D.O. INDICATION: Status post cardiac arrest. MEASUREMENTS: 2D Measurements: Inferior vena cava 2.45 cm Aortic root 2.8 cm Left atrium 3.3 cm Intraventricular septum 1.11 cm Posterior wall 1.03 cm Left ventricle diastole 2.9 cm Doppler Measurements: No aortic regurgitation No aortic stenosis Aortic valve velocity 111 cm/s LVOT velocity 96.6 cm/s Trace mitral regurgitation Mitral E velocity 96.1 cm/s Mitral A velocity 48.0 cm/s Mitral deceleration time 119 msec Moderate tricuspid regurgitation Estimated right ventricular systolic pressure 51 mmHg Estimated right atrial pressure 10 mmHg Mild pulmonic regurgitation Pulmonary artery acceleration time 71 msec MITRAL ANNULAR TISSUE DOPPLER E prime septal 7.9 cm/s, E prime lateral 9.0 cm/s DESCRIPTION: Rhythm was sinus. Image quality was good. This was a 2D, M-mode, color flow Doppler, and pulsed wave Doppler examination including mitral annular tissue Doppler. CONCLUSIONS: 1. Normal left ventricle internal dimensions and wall thickness. Normal regional left ventricular (LV) wall motion and wall thickening. Normal left ventricular (LV) systolic function. Left ventricular ejection fraction (LVEF) of 70% by visual estimate. Normal left ventricular (LV) diastolic function. 2. Suggestive of moderate elevation of estimated right ventricle systolic pressure. Partial flattening of the intraventricular septum in both diastole and systole in keeping with both volume and pressure overload of the right ventricle. Moderate tricuspid regurgitation with structurally normal appearing tricuspid leaflets. 3. Right pleural effusion. 4. Very mild pericardial effusion. No diastolic chamber collapse. 5. Mild mitral annular calcification. Trace mitral regurgitation. MTDD
--- NOTE | 2020-01-28 10:21 | CCN ---
DATE: 01/27/2020 CRITICAL CARE TIME: 3 hours 15 minutes. This excludes all procedures. SUBJECTIVE: Subha Trivedi is a 49-year-old female who I was called during an arrest. On my arrival to the room, the patient had been under cardiopulmonary resuscitation (CPR) for 20 minutes. CPR was stopped, patient had a pulse at that point in time, had no spontaneous breathing, and had already been intubated by Anesthesia. She was being bagged. She appeared to have a sinus arrhythmia on telemetry. Blood pressure was obtainable initially 113 systolic. I obtained an arterial blood gas from the left groin and then, ordered labs and took the patient to the intensive care unit. The initial arterial blood gas was 6.99, pCO2 of 97, PaO2 of 22.6. This improved after mechanical ventilation to an arterial blood gas of 7.19, pCO2 of 49, PaO2 of 72. The patient had been on no sedation the entire time of the critical care time at bedside in discussing with family, and she has had no neurologic response. She has no pupillary reflex. No corneal reflex. No oculocephalic reflex. She has no movement and no response to pain. On evaluation of the patient, she had severe hypoxia difficult to oxygenate despite 100% FiO2 and 10 of positive end-expiratory pressure (PEEP). Even after recovering from doses of epinephrine having better perfusion to pick out hand on the pulse oximetry, it was still mid 80s at best. From a cardiac standpoint, her heart rate remained in a sinus rhythm. There were no ventricular arrhythmias observed. When speaking with the family, apparently she had an event very similar to this recently. They thought it was secondary to congestive heart failure. I did call her petal shaper hand who had performed dialysis yesterday and today due to her volume status. The patient was on only 1 liter of nasal cannula sating 93% to 96% the entire day. There was no evidence of worsening hypoxia. This was a very sudden event. The patient had been on Eliquis for the possibility of pulmonary embolism. Her chest x-ray suggests diffuse flash pulmonary edema, although the differential remains wide as outlined below. The patient was hypotensive and therefore, I placed her on Levophed. Central venous pressure appeared elevated, especially on echocardiogram. There was a small right pleural effusion. I actually looked to see if I could place a chest tube to see if there was enough fluid for me to have an impact on her oxygenation and there was very little. OBJECTIVE: GENERAL: Patient is not moving, has no intentional movements despite no sedation since the time of resuscitation. She does not respond to pain. She does not over-breathe the vent. When I turn the respiratory rate down on the ventilator, there were no spontaneous breaths. HEENT: Pupils are approximately 4 mm and nonreactive. Oculocephalic reflex is abnormal and there is no corneal reflex. There is no posturing. Mucous membranes are moist. There is blood coming from her orogastric (OG) tube. There is pink frothy liquid coming from her endotracheal tube, which is a 7.5 endotracheal tube. NECK: Supple. No tracheal deviation or mass. LYMPHATICS: No cervical, supraclavicular, or axillary adenopathy. There is a subclavian line in the right anterior chest that was not drawing well. Therefore, I placed a left central line. This was not part of her critical care time as mentioned above. There was no surrounding erythema or exudate. CARDIAC: Distant S1, S2 without audible murmur, rub, or gallop. Tachycardic. Point of maximal impulse (PMI) is nondisplaced. No significant dependent edema. PULMONARY: Decreased breath sounds throughout with rales throughout and upper airway rhonchi. ABDOMEN: Soft, nontender, and nondistended. No hepatosplenomegaly. No masses or hernia. EXTREMITIES: The right groin has a graft. Lower extremity edema shows chronic venous stasis wrapped in some dressings. Some rashes that appear to be healing. There is poor perfusion to fingertips and the feet. LABORATORY EVALUATION: Shows an initial postcode sodium 142, potassium 4.2, chloride 102, bicarb 21, BUN 38, creatinine 3.91, albumin 2.5. Troponin is slightly elevated at 0.84. Anion gap was 19. Calcium was reporting high ICAL was ordered. Fingerstick blood close just after code was 113. Platelet count had decreased to 50,000, hemoglobin was 12.2, and white blood cell count was normal at 8.6 and this was the level that it has been over the past few days. IMAGING: Chest x-ray again shows appropriate line placement and appropriate endotracheal tube placement with diffuse pulmonary edema. EKG showed a sinus arrhythmia without ST abnormalities. IMPRESSION: 1. PEA arrest likely to acute arrhythmia. Something had to happen very quickly as this did not appear to be a progressive issue over time. The patient had her usual baseline oxygen saturations as late as 1600 today. Myocardial infarction remains in the differential; however, I ordered an urgent bedside echocardiogram, which did not show any significant change in systolic function and no evidence of hypokinesis. There was a small effusion that did not show any signs of pericardial tamponade. Sepsis with acute respiratory distress syndrome (ARDS) remains in the differential, however, I believe this is less likely as the patient did not have an elevated white count and no fevers, but I ordered blood cultures and placed her on antibiotics thus so. Alveolar hemorrhage remains in the differential; however, usually alveolar hemorrhage develops over time and this is something that developed within minutes. Given her history of having an episode similar to this before, this could very well be an arrhythmia. I think pulmonary embolism is less likely due to the fact that she has been on Eliquis and taking it. 2. Gastrointestinal (GI) bleed. I placed on Protonix an hemoglobin was 12.2. No indication for transfusion. 3. Thrombocytopenia. Held Eliquis. 4. Recently on steroids. I have given the patient stress-dosed steroids. After discussing her status with her family, her two sisters who are her health care proxies, reported that she would not want to have this kind of aggressive care. They do not want any further resuscitation and because of her current neurologic status, they wish to withdraw care. They do want an autopsy. Therefore, the patient will remain intubated with lines in place. She has received no sedation while on mechanical ventilation. Therefore, the patient is DO NOT RESUSCITATE (DNR) and switched to palliative care only based on health care proxy discussion with both Dami and Carmelita. LESVIA
--- NOTE | 2020-01-28 10:26 | RO ---
DATE OF OPERATION: 01/27/2020 PREOPERATIVE DIAGNOSIS: Hypotension; critical illness. POSTOPERATIVE DIAGNOSIS: Hypotension; critical illness. PROCEDURE: Left internal jugular triple-lumen catheter. PROCEDURALIST: Bartolo Middleton DO CABLE MOCK UP ASSEMBLER: None. ANESTHESIA: unconscious on mechanical ventilation DESCRIPTION OF PROCEDURE: Timeout was performed with two-patient identifiers and identifying correct site and correct procedure. Left internal jugular (IJ) was identified under ultrasound and patient was cleaned and prepped with chlorhexidine and full sterile barrier precautions. The left IJ was then again ultrasounded under sterile technique. The Raulerson's syringe was introduced into the left IJ with return of venous blood flow. This was on the first pass. Wire was placed through the needle, needle was removed. The triple-lumen catheter was placed via modified Seldinger technique and all three ports returned venous blood flow after the wire was removed. This was sutured in place at 15 cm. A sterile impregnated dressing was placed over the site. The ports returned venous blood flow and flushed easily. Post-procedure chest x-ray showed good position without evidence of pneumothorax. [facility]
--- NOTE | 2020-01-28 10:29 | REP ---
TWO-VIEW CHEST HISTORY: Status post right thoracentesis. TECHNIQUE: Two views of the chest are performed immediately following a right thoracentesis performed with ultrasound guidance. FINDINGS: There is no pneumothorax. Right pleural fluid has decreased. There are mild right basilar atelectatic changes. There is stable pleural and parenchymal opacity in the left lung base. There is cardiomegaly, which is unchanged. The mediastinal silhouette is unchanged. A right central venous catheter is again seen with the tip in the superior vena cava. MTDD
[2020-01-28 13:07] LABS: ANTI DS-DNA AB Negative (Negative); ANTINUCLEAR ANTIBODIES DIRECT Negative (Negative); COMPLEMENT TOTAL (CH50) > 60 U/mL (>41)
--- NOTE | 2020-01-28 14:17 | ECGEPIP ---
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
--- NOTE | 2020-01-28 15:16 | REP ---
ULTRASOUND-GUIDED RIGHT THORACENTESIS This procedure was performed by PINKY Chowdary, under the direct supervision of Dr. Marlow. This patient is in the intensive care unit (ICU) and therefore, this procedure was done in ICU bedside. The risks and benefits of the procedure were explained to the patient and an informed consent was obtained both verbally and written. Directly prior to the start of the procedure, a formal time-out was completed in the ICU. Pleural fluid in the right lower lung zone was localized using ultrasound guidance. The skin was prepped and draped in a sterile fashion. 1% Lidocaine 10 mg/mL was used as a local anesthetic. Using ultrasound guidance, an 8-Portuguese multi-side hole catheter was inserted and advanced into the fluid. 1150 mL of fluid was removed and sent to the lab for further analysis. The patient tolerated the procedure extremely well, and there were no immediate complications. LESVIA
--- NOTE | 2020-02-11 13:21 | DS.PDOC ---
Discharge Summary General Date of Admission Jan 20, 2020 at 10:58 Date of Discharge 01/28/20 Discharge Summary Addendum to discharge summary: Discharge Diagnosis: SHOCK Discharge Medications Scheduled Apixaban (Eliquis) 2.5 Mg Tablet, 2.5 MG PO BID, (Reported) Aspirin (Aspirin) 81 Mg Tab.chew, 81 MG PO DAILY, (Reported) Atorvastatin Calcium (Atorvastatin Calcium) 20 Mg Tablet, 20 MG PO DAILY, (Reported) Ergocalciferol (Vitamin D2) (Vitamin D2) 50,000 Units Cap, 50,000 CAP PO QWEEK, (Reported) sunday Folic Acid/Vit B Complex and C (April-Antonina Tablet) 0.8 Mg Tablet, 0.8 MG PO DAILY, (Reported) Gabapentin (Gabapentin) 100 Mg Capsule, 200 MG PO BID, (Reported) Insulin Glargine,Hum.rec.anlog (Basaglar Kwikpen U-100) 100 Unit/1 Ml Insuln.pen, 20 UNIT SC DAILY, (Reported) Isosorbide Mononitrate (Isosorbide Mononitrate ER) 30 Mg Tab.er.24h, 30 MG PO DAILY, (Reported) Levothyroxine Sodium (Levothyroxine Sodium) 125 Mcg Tablet, 125 MCG PO QAM, (Reported) Metoprolol Tartrate (Metoprolol Tartrate) 50 Mg Tablet, 50 MG PO BID, (Reported) Midodrine HCl (Midodrine HCl) 5 Mg Tablet, 5 MG PO TID, (Reported) Omeprazole (Omeprazole) 40 Mg Capsule.dr, 40 MG PO BID, (Reported) Prednisone (Prednisone) 10 Mg Tablet, 10 MG PO DAILY, (Reported) Sevelamer Carbonate (Sevelamer Carbonate) 800 Mg Tablet, 1,600 MG PO WM, (Reported) Scheduled PRN Magnesium Hydroxide (Milk of Magnesia) 400 Mg/5 Ml Oral.susp, 30 ML PO DAILY PRN for CONSTIPATION, (Reported) Polyethylene Glycol 3350 (Miralax) 119 Gm Powder, 17 GM PO BID PRN for CONSTIPATION, (Reported) Allergies Coded Allergies: Penicillins (Verified Allergy, Unknown, UNKNOWN CHILDHOOD REACTION, 09/11/18) PER [facility] RECORDS PT HAS RECEIVED MEROPENEM AND CEFEPIME IN THE PAST VENKATA LY MD Feb 11, 2020 13:21
== END 2020-01-28 04:45 | disposition expired | DRG 194 ==
LOC: EDBD 07:02 → M ED 07:02 → M ED INP 10:58 → ENRESERV 14:48 → M PCU 16:05 → M ICU 01-21 09:30 → M PCU 01-26 16:23 → M MSPAV 01-27 14:17 → M ICU 01-27 20:00
PROVIDERS: ADMIT Internal Medicine; ATTEND Internal Medicine Pulmonary Disease
PROC: 02H633Z Insertion of Infusion Device into Right Atrium, Percutaneous Approach (ICD-10-PCS; principal; 2020-01-21)
PROC: 5A1D70Z Performance of Urinary Filtration, Intermittent, Less than 6 Hours Per Day (ICD-10-PCS; 2020-01-21)
PROC: 0W993ZZ Drainage of Right Pleural Cavity, Percutaneous Approach (ICD-10-PCS; 2020-01-23)
PROC: 02HV33Z Insertion of Infusion Device into Superior Vena Cava, Percutaneous Approach (ICD-10-PCS; 2020-01-27)
PROC: 0BH17EZ Insertion of Endotracheal Airway into Trachea, Via Natural or Artificial Opening (ICD-10-PCS; 2020-01-27)
DX: J90 Pleural effusion, not elsewhere classified (principal); R57.9 Shock, unspecified; J81.0 Acute pulmonary edema; J18.9 Pneumonia, unspecified organism; E87.2 Acidosis; I31.3 Pericardial effusion (noninflammatory); N18.6 End stage renal disease; I50.32 Chronic diastolic (congestive) heart failure; I95.3 Hypotension of hemodialysis; N25.81 Secondary hyperparathyroidism of renal origin; I95.89 Other hypotension; E11.22 Type 2 diabetes mellitus with diabetic chronic kidney disease; E11.42 Type 2 diabetes mellitus with diabetic polyneuropathy; E11.51 Type 2 diabetes mellitus with diabetic peripheral angiopathy without gangrene; D69.6 Thrombocytopenia, unspecified; E87.5 Hyperkalemia; E27.40 Unspecified adrenocortical insufficiency; E87.1 Hypo-osmolality and hyponatremia; E86.9 Volume depletion, unspecified; Z79.01 Long term (current) use of anticoagulants; I25.10 Atherosclerotic heart disease of native coronary artery without angina pectoris; R29.6 Repeated falls; K59.00 Constipation, unspecified; Z79.4 Long term (current) use of insulin; Z79.82 Long term (current) use of aspirin; Z79.52 Long term (current) use of systemic steroids; Z79.899 Other long term (current) drug therapy; Z99.2 Dependence on renal dialysis; Z95.5 Presence of coronary angioplasty implant and graft; Z88.0 Allergy status to penicillin; Z86.711 Personal history of pulmonary embolism; E78.00 Pure hypercholesterolemia, unspecified; K21.9 Gastro-esophageal reflux disease without esophagitis; H54.8 Legal blindness, as defined in USA; Z87.891 Personal history of nicotine dependence; E03.9 Hypothyroidism, unspecified; H93.19 Tinnitus, unspecified ear; R21 Rash and other nonspecific skin eruption; R23.8 Other skin changes; I87.2 Venous insufficiency (chronic) (peripheral); J98.11 Atelectasis; Z66 Do not resuscitate; Z51.5 Encounter for palliative care; I46.9 Cardiac arrest, cause unspecified